=== PATIENT | male | born 1965 | race Caucasian/White ===

== ENCOUNTER 2018-06-03 10:57 | Outpatient (CLI) | payer MEDICAID, SELFPAY ==
[2018-06-03 13:01] LABS: Anion Gap 10.8 mmol/L (3-11); BUN 16 mg/dL (7-18); CO2 27.2 mmol/L (21.0-32.0); CREATININE 1.05 mg/dL (0.70-1.30); Calcium 9.2 mg/dL (8.5-10.1); Chloride 105 mmol/L (98-107); Glucose 125 mg/dL (70-100); Potassium 3.9 mmol/L (3.5-5.1); Sodium 143 mmol/L (136-145)
[2018-06-03 14:27] LABS: Hemoglobin A1C 6.3 % (4.5-6.2)
== END 2018-06-03 11:17 ==
PROVIDERS: PCP Emergency Medicine; Visit Provider Emergency Medicine
DX: E11.9 Type 2 diabetes mellitus without complications (principal)
CPT/HCPCS: 36415; 80048; 83036

== ENCOUNTER 2018-12-02 10:52 | Outpatient (CLI) | payer MEDICAID, SELFPAY ==
[2018-12-02 13:03] LABS: BUN 17 mg/dL (7-18); CREATININE 0.97 mg/dL (0.70-1.30); Calcium 9.3 mg/dL (8.5-10.1); Chloride 107 mmol/L (98-107); Glucose 109 mg/dL (70-100); Potassium 4.4 mmol/L (3.5-5.1); Sodium 143 mmol/L (136-145)
[2018-12-02 13:21] LABS: Hemoglobin A1C 5.8 % (4.5-6.2)
== END 2018-12-02 11:12 ==
PROVIDERS: PCP Emergency Medicine; Visit Provider Emergency Medicine
DX: I10 Essential (primary) hypertension (principal); E11.9 Type 2 diabetes mellitus without complications
CPT/HCPCS: 36415; 80048; 83036

== ENCOUNTER 2019-04-12 07:00 | Outpatient (CLI) | payer MEDICAID, SELFPAY ==
[2019-04-13 13:19] LABS: PSA, Screening 0.6 ng/ml (0-3.5)
== END 2019-04-12 07:20 ==
PROVIDERS: PCP Emergency Medicine; Visit Provider Emergency Medicine
DX: Z12.5 Encounter for screening for malignant neoplasm of prostate (principal)
CPT/HCPCS: 36415; 84153

== ENCOUNTER 2021-02-02 03:28 | Inpatient (IN) | payer MEDICAID, SELFPAY ==
[2021-02-02] VITALS (102 sets, daily range): BP systolic 117–201; BP diastolic 83–134; PULSE 88–147; RESP 19–37; TEMP 36.1–36.9; O2SAT 88–98
--- NOTE | 2021-02-02 03:15 | RT.EKG_ITS ---
APPROVED REPORT Exam: Resting ECG Reason for Exam: chest pain Patient Location: E HR:131 bpm ECG Measurements Heart Rate 131 AXIS NC 128 P 36 QRSd 84 QRS -28 QT 318 T 88 QTc 469 Conclusion Sinus tachycardia...rate> [address]-T changes
--- NOTE | 2021-02-02 03:29 | W.ED.GENAD ---
Discharge Plan Disposition Patient Disposition: [facility] INPATIENT Condition: Poor Discharge Details Clinical Impression: Acute pancreatitis Primary Care Provider: Peña Turner ED Provider: Vazquez Arndt Adkins Meds and New Rx's Prescriptions: No Action metformin 500 mg tablet 1,000 mg PO DAILY RF: 0 (DME) Blood-Glucose Meter [Blood Glucose Monitor] 1 EACH EACH 1 ea Miscellaneous BID Qty: 1 RF: 1 cholecalciferol (vitamin D3) 50,000 unit wafer 50,000 unit PO QWEEK RF: 0 ergocalciferol (vitamin D2) [Vitamin D2] 1,250 mcg (50,000 unit) capsule 1,250 mcg PO QWEEK Qty: 12 RF: 4 spironolactone 25 mg tablet 25 mg PO DAILY Qty: 90 RF: 3 (DME) Blood Glucose Test Strip 1 ea Miscellaneous DAILY Qty: 100 RF: 6 (DME) lancets 28 gauge misc 1 ea Miscellaneous DAILY Qty: 100 RF: 3 lisinopril 20 mg tablet 20 mg PO DAILY Qty: 90 RF: 3 amlodipine 5 mg tablet 5 mg PO DAILY Qty: 90 RF: 4 Medical Decision Making Patient presenting with upper abdominal pain/chest pain onset 1 to 2 hours ago. Associated with nausea and vomiting. Reporting that he could not breathe but suspect more related to pain and discomfort than true dyspnea. Appears uncomfortable but has a benign abdomen on exam. He is tachycardic and tachypneic. Line established and laboratory studies sent including troponin, lipase, lactic acid. EKG is sinus tachycardia with nonspecific ST changes possibly rate related. There is no STEMI. Fluids started. Morphine and Zofran ordered. CTA of the chest and CT of abdomen pelvis ordered. Patient laboratory studies in full white count of 18.5. Lactic acid elevated 3.6. Anion gap of 15.5. Liver functions a little high with AST 152 and ALT 198. Total bilirubin is 1.3. Lipase is still pending due to it being markedly elevated. CT scan confirms acute pancreatitis with associated ileus. No evidence of cholecystitis or biliary ductal dilatation. No obvious pulmonary embolus. Motion artifact degrades CTA to some degree. Patient remained with normal saturations. Radiology feels there is evidence of interstitial infiltrate of uncertain etiology, cardiogenic versus noncardiogenic versus infectious. For now we will not treat with antibiotics as I do not think this is pneumonia related. Doubt cardiogenic etiology. Troponin is negative. Continue treatment with fluids and pain control, keep n.p.o. Discussed with hospitalist for admission. Lipid panel and alcohol level added to labs Lab Data Lab results reviewed: Yes I reviewed the patient's lab results. ECG Data Attestation: I personally reviewed and interpreted this ECG (s) as follows: Prior ECG tracings: not available for review Interpretation: see EKG HPI General Mode of arrival: ambulatory. Date/Time Provider Initiated Documentation: 02/02/21 03:29. Limitations to Documentation: no limitations. Information obtained by: patient and RN notes reviewed. HPI Narrative: Patient arrives to the ED with complaint of upper abdominal pain and chest pain. Patient reports symptoms started 1 to 2 hours ago. Complaining of not being able to bring. He has had nausea and vomiting. Denies back pain. Sitting on stretcher moaning and groaning not providing much in terms of detailed history. States he was fine earlier this evening. Denies having pain like this previously. Denies any alcoholic beverages in the last few months. Denies any abdominal surgery. Related Data Home Medications Medication Instructions Recorded Confirmed metformin 500 mg tablet 1,000 mg PO DAILY tab 04/12/19 02/02/21 cholecalciferol (vitamin D3) 1,250 50,000 unit PO QWEEK 08/24/19 02/02/21 mcg (50,000 unit) oral wafer ergocalciferol (vitamin D2) 1,250 1,250 mcg PO QWEEK #12 cap 08/24/19 02/02/21 mcg (50,000 unit) capsule spironolactone 25 mg tablet 25 mg PO DAILY #90 tab-cap 07/05/20 02/02/21 blood sugar diagnostic #100 strip 07/29/20 lancets 28 gauge #100 ea 07/29/20 lisinopril 20 mg tablet 20 mg PO DAILY #90 tab-cap 10/16/20 02/02/21 amlodipine 5 mg tablet 5 mg PO DAILY #90 tab-cap 01/27/21 02/02/21 Previous Rx's Medication Instructions Recorded ergocalciferol (vitamin D2) 1,250 1,250 mcg PO QWEEK #12 cap 08/24/19 mcg (50,000 unit) capsule spironolactone 25 mg tablet 25 mg PO DAILY #90 tab-cap 07/05/20 blood sugar diagnostic #100 strip 07/29/20 lancets 28 gauge #100 ea 07/29/20 lisinopril 20 mg tablet 20 mg PO DAILY #90 tab-cap 10/16/20 amlodipine 5 mg tablet 5 mg PO DAILY #90 tab-cap 01/27/21 Allergies Allergy/AdvReac Type Severity Reaction Status Date / Time No Known Allergies Allergy Verified 03/01/20 11:11 Review of Systems Narrative: Unable to obtain this patient to uncomfortable and not readily answering questions [facility] Medical History Diabetes Diverticulosis 07/31 COLONOSCOPY: PANDIVERTICULOSIS 01/14/16-[facility] [place] Essential hypertension (05/07/15) possible aldosteronism. See [facility] [place] notes avoid diuretics Kidney stones 1999 Rotator cuff injury Left shoulder diffuse rotator cuff tear, repaired at [facility] [place] 2009, some residual motion loss. 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 Surgical History H/O colonoscopy Previous back surgery Rotator Cuff Repair 2010 LEFT Family History (Updated 04/12/19 @ 13:52 by Al Linda) Mother Hyperlipidemia Diabetes Father Diabetes Hypertension Brother No problems noted. Brother No problems noted. Son Depression Daughter No problems noted. Social History Smoking/Tobacco Use Status: Never Smoking risk assessment performed?: Yes Alcohol Intake: current Alcohol Intake frequency: holidays/special occasions only Substance use type: does not use Caregiver/Support person: No Household members: family Housing: house Communication Needs: None Pets and animals: Yes Pets and animals: cat(s) and dog(s) Sexually active: Yes Current gender identity: male What is your relationship status?: How often do you talk on the phone with friends or family?: three or more times per week How often do you get together with friends or relatives?: once per week How often do you attend shinto or holiness services?: decline to answer Do you belong to any clubs or organized social groups?: no Panel score (0-1 are the most socially isolated patients): 1 What type of physical activity do you participate in: walking Duration: 15-30 minutes/day Cyndi/Sikhism: Adventism Special cyndi needs: No Seatbelt use: always Drive 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 HEENT: NC/AT. Normal facial exam. Eyes: Normal conjunctiva and sclera. Neck: Supple. Trachea midline. Lungs: Normal respiratory effort. Lungs are clear. Cor: RRR without murmur/gallop. Good radial pulses. GI: Soft. NT/ND. No guarding or rebound. Neuro: A+O x 3. Normal speech, mentation. Cranial nerves II - XII grossly intact. No gross motor or sensory deficit. Ext: No C/C/E. Skin: Warm and dry without rash.
--- NOTE | 2021-02-02 03:45 | DI.CT_ITS ---
Exam(s) CT CHEST PE ABD PELVIS W EXAM: CT CHEST PE ABD PELVIS W CLINICAL HISTORY: SOB; CP; upper abdominal pain. TECHNIQUE: Imaging Protocol: Axial CT angiography was performed with multi-slice acquisition and m ulti-planar and/or 3D reconstructions. CONTRAST MATERIAL: Intravenous: Omnipaque 350 Contrast volume:100 ml Oral: None COMPARISON: CT ABD PELVIS WITH CONTRAST from 08/19/2010 CR CHEST 2 VIEWS PA,LAT from 08/23/2014 FINDINGS: CHEST: Study is limited by less than optimal enhancement of the pulmonary arterial tree. This is rel ated to motion and bolus timing being suboptimal. PULMONARY ARTERIES: There are no obvious intra-arterial filling defects to suggest the presence of ac chilkat central pulmonary emboli. More peripheral pulmonary emboli would be difficult to see on this par ticular study. LUNGS: There is no evidence of pulmonary infarction. There are no pleural effusions.Mild increased p ulmonary markings are probably exaggerated by motion artifact here. MEDIASTINUM: There is no hilar nor mediastinal adenopathy. Visualized thyroid unremarkable. CARDIAC: Heart size is normal. There is no pericardial effusion. There is no significant shift of t he interventricular septum.Caliber of the thoracic aorta is within normal limits. OSSEOUS: No significant osseous lesions.. ABDOMEN: There is no ascites. LIVER: Liver is hypodense implying steatosis. There are no discrete focal hepatic lesions. GALLBLADDER/BILIARY: Very subtle hypodensity in the gallbladder suggest the presence of gallstones. Gallbladder wall is not edematous. Gallbladder appears slightly distended. This CBD diameter is not dilated. Subtle suggestion of a possible calculus in the lower CBD (series 12/image 34) PANCREAS: There is peripancreatic streaking consistent with pancreatitis. Pancreatic duct is not dil ated. There is small amount of free fluid around-subjacent to the pancreas. No formed pseudocyst. This fluid is also seen surrounding the superior mesenteric vein and portal vein confluence but with no thrombosis of these veins evident. SPLEEN: Spleen is not enlarged. There are no intrasplenic lesions. Splenic and portal veins are cox nt. ADRENALS: Right adrenal gland unremarkable. There is slight thickening of the genu of the left adren al gland which may suggest a small benign adenoma. KIDNEYS:No significant focal findings in the kidneys. No calculi nor hydronephrosis. No solid renal masses. ABDOMINAL AORTA: Abdominal aorta is not enlarged. LYMPH NODES: There is no retroperitoneal or para-aortic adenopathy. ABDOMINAL WALL/GI: No evidence of significant anterior abdominal wall hernia. There is a fat contain ing left inguinal hernia. PELVIS: LYMPH NODES: There is no intrapelvic nor inguinal adenopathy. GI: No evidence of appendicitis.No evidence of sigmoid diverticulitis. URINARY BLADDER: No calculi nor masses evident REPRODUCTIVE: Prostate size minimally prominent. No obturator adenopathy. OSSEOUS: No significant osseous lesions. Ankylosis of the sacroiliac joints is noted. IMPRESSION: 1. No evidence of obvious acute pulmonary emboli nor pulmonary infarction, realized limitations of th is study for detecting pulmonary emboli, as described above. There are no pleural effusions. 2. There appears to be evidence of cholelithiasis and possible calculus in the lower most CBD.There i s acute pancreatitis with peripancreatic streaking and fluid. The pancreatic duct is not dilated. T here is inflammatory streaking around the portal vein confluence and superior mesenteric vein. Howev er, there is no evidence of thrombosis of these veins at this time. 3. Hepatic steatosis noted. No discrete ominous focal hepatic lesions evident. 4. Sacroiliac joints exhibit ankylosis. This CT study was 1st read by [facility]. Final report called by myself to the ICU hospitalist Dr. Reynolds Wednesday02/02/2021 at 6:50 p.m. RADIATION DOSE DELIVERED: 1,759.88mGy.cm Total DLP DATA REPOSITORY: All CT scans at this facility are submitted to the National Radiology Data Registry (NRDR) Dose Index Registry (DIR) with the [employer] (ACR). RADIATION OPTIMIZATION: All CT scans at this facility use at least one of these dose optimization te chniques: automated exposure control; mA and/or kV adjustment per patient size (includes targeted exa ms where dose is matched to clinical indication); or iterative reconstruction.
[2021-02-02] MEDS: Lactated Ringers 1,000 ML 1000 ML IV (03:54)
[2021-02-02] MEDS: Ondansetron 4 MG/2 ML VIAL IVP ×2 (03:57→10:05)
[2021-02-02] MEDS: MORPHine 10 MG/ML VIAL 5 MG IVP ×2 (03:59→05:01)
[2021-02-02 04:01] LABS: Abs Immature Grans 0.05 10^3/uL (0.0-0.06); Absolute Eosinophil Count 0.26 10^3/uL (0.0-0.7); Absolute Lymphocyte Count 4.09 10^3/uL (1.2-3.4); Absolute Monocyte Count 1.15 10^3/uL (0.1-0.8); Basophils % 0.5; Eosinophils % 1.4; HCT 48.4 % (40.0-50.0); HGB 16.4 g/dL (13.5-17.5); Immature Grans % 0.3; Lymphocytes % 22.1; MCH 30.8 pg (27.0-33.0); MCHC 33.9 % (32.0-36.0); MPV 10.9 fL (8.0-11.0); Monocytes % 6.2; Neutrophils % 69.5; Nucleated RBC 0 %; Platelet Count 218 10^3/uL (130-400); RBC 5.32 10^6/uL (4.36-5.78); RDW 12.8 % (11.8-14.1)
[2021-02-02 04:05] LABS: Absolute Basophil Count 0.09 10^3/uL (0.0-0.2); Absolute Neutrophil Count 12.86 10^3/uL (1.2-6.7); Lactate 3.6 mmol/L (0.6-1.4)
[2021-02-02 04:19] LABS: Magnesium 1.9 mg/dL (1.8-2.4)
[2021-02-02 04:22] LABS: ALT 198 U/L (16-63); AST 152 U/L (15-37); Albumin 4.7 g/dL (3.4-5.0); Alkaline Phosphatase 110 U/L (46-116); Anion Gap 15.5 mmol/L (3-11); BUN 17 mg/dL (7-18); Bilirubin, Total 1.3 mg/dL (0.2-1.0); CO2 21.5 mmol/L (21.0-32.0); CREATININE 1.4 mg/dL (0.70-1.30); Calcium 9.4 mg/dL (8.5-10.1); Chloride 106 mmol/L (98-107); Estimated GFR 52.42 (mL/min/1.73m2); Glucose 172 mg/dL (74-106); Potassium 4.1 mmol/L (3.5-5.1); Sodium 143 mmol/L (136-145)
[2021-02-02 04:25] LABS: Troponin I < 0.05 ng/mL (<0.06)
[2021-02-02] MEDS: Normal Saline - Diluent 50 ML VIAL IV (04:39)
[2021-02-02] MEDS: Omnipaque 350 MG/ML 100 ML BTL IJ (04:39)
--- NOTE | 2021-02-02 04:56 | DI.VRAD_ITS ---
PROCEDURE INFORMATION: Exam: CTA Chest With Contrast Exam date and time: 02/02/2021 3:52 AM Age: 55 years old Clinical indication: Abdominal tenderness and vomiting; Epigastric; Shortness of breath; Other: Not specified; Patient HX: SOB; Cp; Upper abdominal pain TECHNIQUE: Imaging protocol: Computed tomographic angiography of the chest with contrast. 3D rendering (Not supervised by radiologist): MIP and/or 3D reconstructed images were created by the technologist. COMPARISON: No relevant prior studies available. FINDINGS: Pulmonary arteries: Motion artifact limits this study and the results are insufficient for definitive exclusion of peripheral pulmonary emboli beyond the first and second order pulmonary arterial branches. No central or saddle emboli noted. No evidence of central lobar occlusive emboli. Segmental emboli cannot be ruled out. The pulmonary arteries are not enlarged. Aorta: The aorta demonstrates mild atherosclerotic calcification. Great vessels off aortic arch: Mild atherosclerosis of the great vessels present. Lungs: There are diffuse interstitial infiltrates present. This may represent cardiogenic versus noncardiogenic edema. An acute inflammatory process and/or infectious process/pneumonia are not excluded. Pleural spaces: There is no evidence of pneumothorax. There are no pleural effusions present. Heart: The right ventricular to left ventricular ratio is approximately 0.8. There is mild left ventricular hypertrophy present. There is mild atherosclerotic calcification of the coronary arteries. Lymph nodes: There is no evidence of lymphadenopathy. Bones/joints: The skeletal structures and soft tissues show no evidence of fracture or other acute processes. Soft tissues: The soft tissues of the extrathoracic region are unremarkable. Other findings: Please see CT of the abdomen and pelvis. IMPRESSION: 1. There are diffuse interstitial infiltrates present. This may represent cardiogenic versus noncardiogenic edema. An acute inflammatory process and/or infectious process/pneumonia are not excluded. 2. Motion artifact limits this study and the results are insufficient for definitive exclusion of peripheral pulmonary emboli beyond the first and second order pulmonary arterial branches. No central or saddle emboli noted. No evidence of central lobar occlusive emboli. Segmental emboli cannot be ruled out. PROCEDURE INFORMATION: Exam: CT Abdomen And Pelvis With Contrast Exam date and time: 02/02/2021 3:52 AM Age: 55 years old Clinical indication: Abdominal tenderness and vomiting; Epigastric; Shortness of breath; Other: Not specified; Patient HX: SOB; Cp; Upper abdominal pain TECHNIQUE: Imaging protocol: Computed tomography of the abdomen and pelvis with contrast. COMPARISON: No relevant prior studies available. FINDINGS: Mediastinal space: A small hiatal hernia is present. Liver: There is a diffuse decrease in hepatic parenchymal density, consistent with moderate to severe fatty infiltration. There are no focal liver lesions present. Gallbladder and bile ducts: There is no evidence of intrahepatic or extrahepatic biliary ductal dilation. The gallbladder is normal. There is no cholelitiasis, wall thickening or pericholecystic fluid to suggest cholecystitis. Pancreas: There is diffuse peripancreatic inflammatory stranding and fluid, consistent with acute pancreatitis. Spleen: The spleen is normal. Adrenal glands: Normal. No mass. Kidneys and ureters: 6.6 mm low-attenuation lesion seen within the upper pole left kidney and 5 mm low-attenuation lesion seen within the upper pole the right kidney consistent with renal cysts. No follow-up indicated. Kidneys are otherwise normal. Stomach and bowel: There are fluid-filled loops of small bowel with air-fluid levels. No significant bowel wall thickening or inflammatory changes. No evidence of obstruction. Consider early enteritis. Consider ileus secondary to pancreatitis. There is no evidence of intestinal obstruction. Appendix: A normal appendix is identified. There is no evidence of distention or periappendiceal inflammation to suggest appendicitis. Intraperitoneal space: The inferior venacava appears normal.The portal, mesenteric and splenic veins are patent.There is no free intraperitoneal air. Vasculature: The aorta demonstrates mild atherosclerotic calcification. The peripheral vasculature demonstrates diffuse mild atherosclerotic calcification. Lymph nodes: There is no evidence of lymphadenopathy. Urinary bladder: The bladder is normal. Reproductive: The prostate gland demonstrates calcification and mild nonspecific enlargement. The seminal vesicles are normal. Bones/joints: The skeletal structures and soft tissues show no evidence of fracture or other acute processes. The thoracolumbar spine demonstrates moderate degenerative changes at multiple levels.The lumbar spine demonstrates moderate degenerative changes. Spondylolytic changes seen at L5-S1 bilaterally. Soft tissues: Left inguinal hernia present containing only fat. IMPRESSION: 1. There is diffuse peripancreatic inflammatory stranding and fluid, consistent with acute pancreatitis. 2. There are fluid-filled loops of small bowel with air-fluid levels. No significant bowel wall thickening or inflammatory changes. No evidence of obstruction. Consider early enteritis. Consider ileus secondary to pancreatitis. Dictated and Authenticated by: Ruslan Anderson MD. Ordering:STAN Shukla MD
[2021-02-02 05:04] LABS: Bilirubin Negative (Negative); Blood Negative (Negative); Clarity Clear (Clear); Glucose Negative (Negative); Ketones Negative (Negative); Leukocyte Esterase Negative (Negative); Nitrite Negative (Negative); Urobilinogen 0.2 EU/dL (Up TO 0.2)
[2021-02-02 05:23] LABS: Calculated LDL 125 mg/dL (<100); Cholesterol 176 mg/dL (<200); HDL Cholesterol 31 mg/dL (40-60); Triglyceride 101 mg/dL (<150)
[2021-02-02 05:29] LABS: ETHANOL BLOOD < 3.0 mg/dL (<3)
[2021-02-02 05:30] LABS: Lipase > 15000 U/L (73-393)
[2021-02-02] MEDS: HYDROmorphone 2 MG/ML VIAL 1 MG IVP (05:51)
[2021-02-02 06:03] LABS: Source Nasal/Nares
[2021-02-02] MEDS: Lactated Ringers 1,000 ML 200 ML IV (06:33)
[2021-02-02 06:52] LABS: COVID-19 PCR Negative (Negative)
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
[2021-02-02] MEDS: fentaNYL 100 MCG/2 ML VIAL 50 MCG IVP ×2 (07:46→09:35)
[2021-02-02] MEDS: LORazepam 2 MG/ML VIAL 1 MG IVP ×3 (07:47→23:20)
[2021-02-02] MEDS: Normal Saline Flush 10 ML SYR IVP ×4 (07:47→20:16)
[2021-02-02 08:20] LABS: Prothrombin Time 10.1 sec (9.3-11.0)
[2021-02-02 08:28] LABS: Troponin I < 0.05 ng/mL (<0.06)
[2021-02-02] MEDS: Heparin 5,000 UNITS/ML VIAL 5000 UNITS SC ×3 (08:28→23:55)
[2021-02-02] MEDS: ACETAMINOPHEN 1,000 MG/100 ML BTL 400 MG IVPB ×4 (08:32→23:56)
[2021-02-02] MEDS: Metoprolol 5 MG/5 ML VIAL IVP ×5 (08:33→21:23)
[2021-02-02] MEDS: Normal Saline 1,000 ML 250 ML IV ×2 (08:33→13:24)
[2021-02-02] MEDS: Spironolactone 25 MG TAB PO (08:41)
[2021-02-02] MEDS: amLODIPine 5 MG TAB PO (08:41)
[2021-02-02] MEDS: Insulin Aspart 300 UNITS/3 ML PEN SC ×4 (09:26→23:37)
[2021-02-02] MEDS: HYDROmorphone 2 MG/ML VIAL IVP ×6 (11:02→20:07)
--- NOTE | 2021-02-02 12:19 | W.PM.PROGNOT ---
Date of Service Date of service: 02/02/21 Time of Service: 12:19 Assessment and Plan Assessment and plan (1) Acute pancreatitis: Status: Acute Assessment and plan: Acute pancreatitis of undetermined etiology. Differential diagnosis include surreptitious alcohol use (patient states he has not had any alcohol in 3 to 4 months however his nurse reports that he told her he has had no alcohol in 2 months.), Medication induced (lisinopril, amlodipine), no evidence for cholecystitis or choledocholithiasis per CT scan. Continue with aggressive IV fluids and parenteral narcotic analgesics and antiemetics. Obtain MRCP and abdominal ultrasound in the morning. Lipid profile showed no evidence for hypertriglyceridemia. Qualifiers: Pancreatitis type: other Acute pancreatitis complication: no infection or necrosis Qualified Code(s): K85.80 - Other acute pancreatitis without necrosis or infection (2) Aldosteronism: Status: Chronic Assessment and plan: Continue spironolactone as tolerated. (3) Secondary hypertension: Status: Chronic Assessment and plan: Continue outpatient medications only as tolerated. If needed IV metoprolol may be used for blood pressure control while the patient is n.p.o. IV Lopressor has been added to his regimen. Continue his spironolactone however with the absence of bowel sounds I suspect he has an ileus and may not absorb his oral medications. If we achieve adequate pain control with narcotics he is still hypertensive may need to consider IV vasodilator such as hydralazine or treated with nicardipine. For now we will continue with IV Lopressor and adjust the dose as tolerated. (4) Diabetes: Status: Chronic Assessment and plan: Monitor frequent blood sugars with fingersticks and cover with short acting insulin Qualifiers: Diabetes mellitus type: type 2 Diabetes mellitus long term care social worker insulin use: without long term care social worker use Diabetes mellitus complication status: without complication Qualified Code(s): E11.9 - Type 2 diabetes mellitus without complications Subjective Subjective Interval history since last seen: Patient is a 55-year-old male with a history of essential hypertension, diabetes mellitus type 2, possible hyperaldosteronism who presented with an acute epigastric abdominal pain yesterday and was found to have acute pancreatitis with a lipase greater than 15,000 with normal triglycerides of 101. Patient has been a casual consumer of alcohol drinking 1 or 2 drinks once a week with friends but states that he is not had any alcohol for the last 3 to 4 months. He has had no prior history of pancreatitis. He does have a history of nephrolithiasis. He states his pain is worse than when he had kidney stones. Serial troponins were obtained yesterday and were found to be negative. LFTs were elevated with an AST of 152, ALT 198 and alkaline phosphatase that was normal at 100 tablet total bilirubin of 1.3. Contrast enhanced CT of the chest and abdomen showed no pulmonary emboli but suggested diffuse interstitial infiltrates on the chest CT however because of motion artifact evaluation of the pulmonary vasculature was limited to the first and second order branches but no central saddle emboli were seen. CT of the abdomen showed diffuse peripancreatic inflammatory stranding and fluid consistent with acute pancreatitis along with fluid-filled loops of small bowel with air-fluid levels suggestive of an ileus. Gallbladder and bile ducts showed no extrahepatic biliary ductal dilatation and gallbladder appear to be normal with no gallstones or wall thickening or pericholecystic fluid. Patient was admitted to ICU as a medical/surgical floor overflow. He has been made n.p.o. given aggressive IV fluids narcotic analgesics and antiemetics. Exam Narrative Exam Narrative: Middle-aged white male lying in bed in acute pain. Alert and oriented. Lungs clear to auscultation Heart regular rate and rhythm Abdomen nondistended soft with absent bowel sounds with tenderness with palpation in the epigastrium and right upper quadrant. Positive voluntary guarding but no rebound tenderness. Extremities without peripheral cyanosis or edema Objective Last Vital Signs Temp 36.5 C 02/02/21 07:38 Pulse 122 H 02/02/21 11:32 Resp 28 H 02/02/21 06:15 BP 184/128 H 02/02/21 11:32 Pulse Ox 91 L 02/02/21 08:36 Laboratory Results - last 24 hr 02/02/21 02/02/21 02/02/21 03:50 03:50 03:50 WBC RBC Hgb Hct MCV MCH MCHC RDW Plt Count MPV Immature Gran % Neutrophils % Lymphocytes % Monocytes % Eosinophils % Basophils % Nucleated RBC % Absolute Neutrophils Absolute Lymphocytes Absolute Monocytes Absolute Eosinophils Absolute Basophils PT INR VBG Lactate 3.6 H* Sodium 143 Potassium 4.1 Chloride 106 Carbon Dioxide 21.5 Anion Gap 15.5 H BUN 17 Creatinine 1.4 H Estimated GFR/1.73 m2 52.42 Glucose 172 H Calcium 9.4 Magnesium 1.9 Total Bilirubin 1.3 H AST 152 H ALT 198 H Alkaline Phosphatase 110 Troponin I < 0.05 Total Protein 8.0 Albumin 4.7 Triglycerides 101 Total Cholesterol 176 LDL Cholesterol, Calc 125 H HDL Cholesterol 31 L Lipase > 65072 H Urine Color Urine Clarity Urine pH Ur Specific [place] Urine Protein Urine Ketones Urine Blood Urine Nitrite Urine Bilirubin Urine Urobilinogen Ur Leukocyte Esterase Urine Glucose Ethyl Alcohol < 3.0 COVID-19 Source SARS-CoV-2 (PCR) 02/02/21 02/02/21 02/02/21 03:50 05:00 05:50 WBC 18.50 H RBC 5.32 Hgb 16.4 Hct 48.4 MCV 91.0 MCH 30.8 MCHC 33.9 RDW 12.8 Plt Count 218 MPV 10.9 Immature Gran % 0.3 Neutrophils % 69.5 Lymphocytes % 22.1 Monocytes % 6.2 Eosinophils % 1.4 Basophils % 0.5 Nucleated RBC % 0 Absolute Neutrophils 12.86 H Absolute Lymphocytes 4.09 H Absolute Monocytes 1.15 H Absolute Eosinophils 0.26 Absolute Basophils 0.09 PT INR VBG Lactate Sodium Potassium Chloride Carbon Dioxide Anion Gap BUN Creatinine Estimated GFR/1.73 m2 Glucose Calcium Magnesium Total Bilirubin AST ALT Alkaline Phosphatase Troponin I Total Protein Albumin Triglycerides Total Cholesterol LDL Cholesterol, Calc HDL Cholesterol Lipase Urine Color Yellow Urine Clarity Clear Urine pH 6.0 Ur Specific [place] 1.010 Urine Protein Negative Urine Ketones Negative Urine Blood Negative Urine Nitrite Negative Urine Bilirubin Negative Urine Urobilinogen 0.2 Ur Leukocyte Esterase Negative Urine Glucose Negative Ethyl Alcohol COVID-19 Source Nasal/Nares SARS-CoV-2 (PCR) Negative 02/02/21 02/02/21 08:00 08:00 WBC RBC Hgb Hct MCV MCH MCHC RDW Plt Count MPV Immature Gran % Neutrophils % Lymphocytes % Monocytes % Eosinophils % Basophils % Nucleated RBC % Absolute Neutrophils Absolute Lymphocytes Absolute Monocytes Absolute Eosinophils Absolute Basophils PT 10.1 INR 1.0 VBG Lactate Sodium Potassium Chloride Carbon Dioxide Anion Gap BUN Creatinine Estimated GFR/1.73 m2 Glucose Calcium Magnesium Total Bilirubin AST ALT Alkaline Phosphatase Troponin I < 0.05 Total Protein Albumin Triglycerides Total Cholesterol LDL Cholesterol, Calc HDL Cholesterol Lipase Urine Color Urine Clarity Urine pH Ur Specific [place] Urine Protein Urine Ketones Urine Blood Urine Nitrite Urine Bilirubin Urine Urobilinogen Ur Leukocyte Esterase Urine Glucose Ethyl Alcohol COVID-19 Source SARS-CoV-2 (PCR)
--- NOTE | 2021-02-02 13:36 | PHA.REVIEW ---
Pharmacy Admission Review - Admission Clinical Review (Last Reviewed 02/02/21 @ 07:04 by Sal Castaneda) Acute pancreatitis (Acute) No Known Allergies Allergy (Verified 03/01/20 11:11) Resuscitation Status Full Code Height 5 ft 10 in Weight 100.3 kg - Renal Dosing Renal Dosing: BUN 17 mg/dL (7-18) 02/02/21 03:50 Creatinine 1.4 mg/dL (0.70-1.30) H 02/02/21 03:50 Medications needing adjustments: Reviewed (Crcl over 60 mL/min using adjusted body weight, current meds okay) - Anticoagulation Anticoagulation: Hgb 16.4 g/dL (13.5-17.5) 02/02/21 03:50 Hct 48.4 % (40.0-50.0) 02/02/21 03:50 Plt Count 218 10^3/uL (130-400) 02/02/21 03:50 INR 1.0 (0.9-1.1) 02/02/21 08:00 Creatinine 1.4 mg/dL (0.70-1.30) H 02/02/21 03:50 DVT Prophylaxis: Reviewed Medications: Heparin - Opiate Usage Evaluate Pain Scale/Pains Meds: Reviewed Scheduled Bowel Reg ordered if on Opiates?: No (has prn meds ordered) - Relevant Labs Sodium 143 mmol/L (136-145) 02/02/21 03:50 Potassium 4.1 mmol/L (3.5-5.1) 02/02/21 03:50 Chloride 106 mmol/L (98-107) 02/02/21 03:50 Magnesium 1.9 mg/dL (1.8-2.4) 02/02/21 03:50 Electrolytes, C-Reactive P, ESR: Reviewed - DM Control DM Control: Glucose 172 mg/dL (74-106) H 02/02/21 03:50 Finger Stick Blood Glucose 245 Finger Stick Blood Glucose 245 Finger Stick Blood Glucose 245 Finger Stick Blood Glucose 211 Finger Stick Blood Glucose 211 Finger Stick Blood Glucose 211 Insulin Dosing: Reviewed (Has sliding scale aspart ordered.) - Heart Failure/ND Heart Failure/ND: Troponin I < 0.05 ng/mL (<0.06) 02/02/21 08:00 EF%, TAMIKA's, B-Blockers, Diuretics: Reviewed - BP Control BP Control: Blood Pressure [Left Arm] 153/103 Blood Pressure 168/113 Blood Pressure 195/121 Blood Pressure 193/125 Blood Pressure 184/128 Blood Pressure 184/128 Blood Pressure 180/126 Blood Pressure 188/122 If elevated: Reviewed (BP has been elevated most of admission. Amlodipine and metoprolol are ordered. Lisinopril currenly being held.) - Qtc Review If Elevated: N/A (QTc 469 on admission) - IV to PO Switch IV Medications: Reviewed (Pt. is currently NPO) - Home Meds Home Med List reviewed: Reviewed Relevent Home Meds Not ordered & why?: ergocalciferol (Qweek), metformin (has sliding scale aspart ordered) - Current meds Current Medication Order Review: Intervened (Asked provider about sliding scale aspart being Q6H vs. ACHS as the pt is currently NPO, also asked provider about possibly holding lisinopril and amlodipine as both meds can cause pancreatitits (very low risk per Uptodate) and the etiology was undetermined.) - Comments Comments/Follow Ups: Watch BP, BG, SCr, labs and for med changes (possible need of additional BM meds, possible adjustment if insulin).
[2021-02-02] MEDS: diphenhydrAMINE 50 MG/ML VIAL 25 MG IVP (15:42)
[2021-02-02] MEDS: Normal Saline 100 ML 200 ML (17:16)
[2021-02-02] MEDS: Normal Saline 1,000 ML 150 ML IV (17:51)
[2021-02-02] MEDS: LORazepam 1 MG TAB PO/SL ×2 (21:41→23:21)
--- NOTE | 2021-02-02 23:53 | PGE_ITS ---
Date of Service Date of service: 02/02/21 Time of Service: 23:53 Subjective Subjective Interval history since last seen: Called for hypertension and restlessness. Case reviewed, admitted for pancreatitis, CT reported initially as no stones, some question as to reliability of alcohol history. Firstly, I received call from radiology earlier this evening stating there were in fact gall stones, and possibly one in CBD. General supportive measures for pancreatitis continued. Severe HTN reported, with diastolic pressures >120, with pulses low 100s, sinus tach. Getting IV Lopressor scheduled, usual TAMIKA and CCB had been on hold. Patient initially given additional 5 mg Lopressor IV along with 2.5 Vasotec IV. BP initially down to approx 110/diastolic. BP then increased 126/poonam and CIWA scoring 20, given 3 Ativan IV per protocol and ordered Nicardipine qtt. On exam 151/126, 105, patient is restless, mumbling, trying to get out of bed A/P Patient appearance is c/w alcohol withdrawal and I believe it best we treat as such. Will convert to Phenobarbital (w/o loading as benzo on board), 130 q15' for RASS 0-1, max 20 mg/kg IBW. Will D/C CIWA and Benzo's. Will continue scheduled Lopressor, Enalapril and Nicardipine. Objective Last Vital Signs Temp 36.7 C 02/02/21 19:44 Pulse 107 H 02/02/21 21:54 Resp 20 02/02/21 19:44 BP 169/111 H 02/02/21 21:54 Pulse Ox 97 02/02/21 21:10 Laboratory Results - last 24 hr 02/02/21 02/02/21 02/02/21 03:50 03:50 03:50 WBC RBC Hgb Hct MCV MCH MCHC RDW Plt Count MPV Immature Gran % Neutrophils % Lymphocytes % Monocytes % Eosinophils % Basophils % Nucleated RBC % Absolute Neutrophils Absolute Lymphocytes Absolute Monocytes Absolute Eosinophils Absolute Basophils PT INR VBG Lactate 3.6 H* Sodium 143 Potassium 4.1 Chloride 106 Carbon Dioxide 21.5 Anion Gap 15.5 H BUN 17 Creatinine 1.4 H Estimated GFR/1.73 m2 52.42 Glucose 172 H Calcium 9.4 Magnesium 1.9 Total Bilirubin 1.3 H AST 152 H ALT 198 H Alkaline Phosphatase 110 Troponin I < 0.05 Total Protein 8.0 Albumin 4.7 Triglycerides 101 Total Cholesterol 176 LDL Cholesterol, Calc 125 H HDL Cholesterol 31 L Lipase > 28822 H Urine Color Urine Clarity Urine pH Ur Specific [place] Urine Protein Urine Ketones Urine Blood Urine Nitrite Urine Bilirubin Urine Urobilinogen Ur Leukocyte Esterase Urine Glucose Ethyl Alcohol < 3.0 COVID-19 Source SARS-CoV-2 (PCR) 02/02/21 02/02/21 02/02/21 03:50 05:00 05:50 WBC 18.50 H RBC 5.32 Hgb 16.4 Hct 48.4 MCV 91.0 MCH 30.8 MCHC 33.9 RDW 12.8 Plt Count 218 MPV 10.9 Immature Gran % 0.3 Neutrophils % 69.5 Lymphocytes % 22.1 Monocytes % 6.2 Eosinophils % 1.4 Basophils % 0.5 Nucleated RBC % 0 Absolute Neutrophils 12.86 H Absolute Lymphocytes 4.09 H Absolute Monocytes 1.15 H Absolute Eosinophils 0.26 Absolute Basophils 0.09 PT INR VBG Lactate Sodium Potassium Chloride Carbon Dioxide Anion Gap BUN Creatinine Estimated GFR/1.73 m2 Glucose Calcium Magnesium Total Bilirubin AST ALT Alkaline Phosphatase Troponin I Total Protein Albumin Triglycerides Total Cholesterol LDL Cholesterol, Calc HDL Cholesterol Lipase Urine Color Yellow Urine Clarity Clear Urine pH 6.0 Ur Specific [place] 1.010 Urine Protein Negative Urine Ketones Negative Urine Blood Negative Urine Nitrite Negative Urine Bilirubin Negative Urine Urobilinogen 0.2 Ur Leukocyte Esterase Negative Urine Glucose Negative Ethyl Alcohol COVID-19 Source Nasal/Nares SARS-CoV-2 (PCR) Negative 02/02/21 02/02/21 08:00 08:00 WBC RBC Hgb Hct MCV MCH MCHC RDW Plt Count MPV Immature Gran % Neutrophils % Lymphocytes % Monocytes % Eosinophils % Basophils % Nucleated RBC % Absolute Neutrophils Absolute Lymphocytes Absolute Monocytes Absolute Eosinophils Absolute Basophils PT 10.1 INR 1.0 VBG Lactate Sodium Potassium Chloride Carbon Dioxide Anion Gap BUN Creatinine Estimated GFR/1.73 m2 Glucose Calcium Magnesium Total Bilirubin AST ALT Alkaline Phosphatase Troponin I < 0.05 Total Protein Albumin Triglycerides Total Cholesterol LDL Cholesterol, Calc HDL Cholesterol Lipase Urine Color Urine Clarity Urine pH Ur Specific [place] Urine Protein Urine Ketones Urine Blood Urine Nitrite Urine Bilirubin Urine Urobilinogen Ur Leukocyte Esterase Urine Glucose Ethyl Alcohol COVID-19 Source SARS-CoV-2 (PCR)
[2021-02-03] VITALS (217 sets, daily range): BP systolic 111–190; BP diastolic 70–128; PULSE 100–147; RESP 15–46; TEMP 36.3–38; O2SAT 88–96
[2021-02-03] MEDS: niCARdipine 25 MG in Normal Saline 240 ML 50 MG IV ×4 (00:22→17:27)
[2021-02-03] MEDS: PHENobarbital 130 MG in Normal Saline 50 ML 100 MG IVPB ×3 (00:40→03:00)
[2021-02-03] MEDS: Normal Saline 1,000 ML 150 ML IV ×2 (01:19→07:57)
[2021-02-03] MEDS: Metoprolol 5 MG/5 ML VIAL IVP ×6 (02:21→21:09)
[2021-02-03] MEDS: HYDROmorphone 2 MG/ML VIAL IVP ×6 (03:27→16:07)
[2021-02-03] MEDS: ACETAMINOPHEN 1,000 MG/100 ML BTL 400 MG IVPB ×4 (05:42→23:10)
[2021-02-03] MEDS: Insulin Aspart 300 UNITS/3 ML PEN SC ×4 (05:47→23:10)
[2021-02-03 06:20] LABS: Lactate 1.9 mmol/L (0.6-1.4)
[2021-02-03 06:24] LABS: Abs Immature Grans 0.18 10^3/uL (0.0-0.06); Absolute Lymphocyte Count 0.91 10^3/uL (1.2-3.4); Basophils % 0.2; HCT 49.3 % (40.0-50.0); HGB 16.5 g/dL (13.5-17.5); Immature Grans % 0.6; Lymphocytes % 3.2; MCHC 33.5 % (32.0-36.0); MCV 92.7 fL (80-95); MPV 10.8 fL (8.0-11.0); Monocytes % 6.3; Neutrophils % 89.7; Nucleated RBC 0 %; Platelet Count 142 10^3/uL (130-400); RBC 5.32 10^6/uL (4.36-5.78); RDW 13.3 % (11.8-14.1); RDW-SD 45.1 fL
--- NOTE | 2021-02-03 06:30 | DI.RAD_ITS ---
Exam(s) XR PORTABLE CHEST AP EXAM: XR PORTABLE CHEST AP CLINICAL HISTORY: INCREASED WHITE BLOOD COUNT. TECHNIQUE: 2D digital imaging was performed. COMPARISON: No exams were available for comparison FINDINGS: Heart size is normal. The mediastinum is not widened. Less than optimal inspiratory effort. Right lung is clear. Increased markings noted in the left lung base. No obvious pleural effusions. No pulmonary edema IMPRESSION: Mild increased markings in the left lung base. Possible early developing infiltrate. Recommend nonp ortable PA and lateral views when clinically possible. DATA REPOSITORY: RADIATION DOSE DELIVERED: All CT scans at this facility use at least one of these dose optimization techniques: automated exposure control; mA and/or kV adjustment per patient size (includes targeted e xams where dose is matched to clinical indication); or iterative reconstruction.
[2021-02-03 06:33] LABS: Absolute Basophil Count 0.06 10^3/uL (0.0-0.2); Absolute Monocyte Count 1.79 10^3/uL (0.1-0.8); Absolute Neutrophil Count 25.47 10^3/uL (1.2-6.7); WBC 28.39 10^3/uL (4.4-10.8)
[2021-02-03 06:45] LABS: ALT 173 U/L (16-63); AST 74 U/L (15-37); Albumin 3.5 g/dL (3.4-5.0); Alkaline Phosphatase 75 U/L (46-116); Anion Gap 8.7 mmol/L (3-11); BUN 17 mg/dL (7-18); Bilirubin, Total 1.2 mg/dL (0.2-1.0); CO2 22.3 mmol/L (21.0-32.0); CREATININE 1.1 mg/dL (0.70-1.30); Calcium 7.7 mg/dL (8.5-10.1); Chloride 109 mmol/L (98-107); Glucose 251 mg/dL (74-106); Potassium 4.6 mmol/L (3.5-5.1); Sodium 140 mmol/L (136-145); Total Protein 6.6 g/dL (6.4-8.2)
[2021-02-03 06:54] LABS: Lipase 6331 U/L (73-393)
[2021-02-03 07:22] LABS: Diff Comment Agrees w/ Instrument; RBC Morphology Normal
--- NOTE | 2021-02-03 07:28 | DI.VRAD_ITS ---
PROCEDURE INFORMATION: Exam: XR Chest Exam date and time: 02/03/2021 6:44 AM Age: 55 years old Clinical indication: Other: Increased white blood count TECHNIQUE: Imaging protocol: XR of the chest. Views: 1 view. COMPARISON: CT CHEST PE ABD PELVIS W 02/02/2021 4:28 AM FINDINGS: Lungs: Unremarkable. No consolidation. Pleural spaces: Unremarkable. No pleural effusion. No pneumothorax. Heart/Mediastinum: Unremarkable. No cardiomegaly. Bones/joints: Unremarkable. IMPRESSION: No acute findings. Dictated and Authenticated by: Mike Ray MD. Ordering:FINN Huang MD
--- NOTE | 2021-02-03 07:44 | W.PULMCC ---
General Date of Service Date of service: 02/03/21 Time of Service: 08:30 Reason for Admission to ICU: Acute pancreatitis Assessment and Plan Assessment and plan (1) Acute pancreatitis: Status: Acute Qualifiers: Pancreatitis type: other Acute pancreatitis complication: no infection or necrosis Qualified Code(s): K85.80 - Other acute pancreatitis without necrosis or infection (2) Essential hypertension: Status: Chronic (3) Transaminitis: Status: Acute (4) Hyperchloremia: Status: Acute (5) Hypocalcemia: Status: Acute (6) Lactic acidosis: Status: Acute Assessment and plan: This is a 55-year-old male admitted to the ICU for acute pancreatitis that is slowly improving. The etiology of the pancreatitis in him would include alcohol induced versus choledocholithiasis with stone passage. Recommendations Pulmonary: Atelectasis Seen on CXR 02/03/21 - Recommend up to chair as tolerated - I.S. and VibraPEP recommended - O2 as need for sat >90% - adequate pain control Cardiac: Hypertension May be do to elevated aldosterone but likely worsened currently by pain. - agree with nicardipine gtt for BP control - would avoid TAMIKA/ARB in the setting of acute pancreatitis given risk for REJI - agree with holding spironolactone for now - would restart amlodipine (exceedingly rare cause of pancreatitis and there are more likely etiologies in this patient) - would consider starting PO diltiazem 60mg bid to facilitate drip weaning Tachycardia - likely related to pain Renal: REJI, resolved Likely in the setting of dehydration from pancreatitis. Improved after fluid resuscitation I&O: Intake & Output 01/31/21 02/01/21 02/02/21 02/03/21 23:59 23:59 23:59 23:59 Intake Total 4350.5 / 4350.5 1539.333 / 1539.333 Output Total 1650 / 1650 800 / 800 Balance 2700.5 / 2700.5 739.333 / 739.333 Weight 100.3 kg Daily Fluid Goal:: Even Patient is currently 4.5L positive GI Nutrition: Has been NPO but recommend clear liquid diet with quick escalation as tolerated as there are typically better outcomes in pancreatitis with PO intake if no nausea/vomiting Acute pancreatitis - would promote PO intake - recommend stopping IVF resuscitation (4.5 L positive) if patient tolerates any PO intake - patient undergoing MRSP to assess potential gall bladder cause. I suspect he had a stone based on the CT images that has now subsequently passed since he is improving lab-martinez quickly Date of Last Bowel Movement: 02/02/21 Infectious Disease: Fever, leukocytosis Unsure if reactive vs infectious. No real necrosis seen on CT. - recommend procalcitonin - continue meropenem for now Hematologic: Leukocytosis As above, reactive vs infectious Neurologic: Pain Patient very sedated to RASS -2 on my assessment. I doubt EtOH withdrawl based on history of abstinence for at least a couple months. I suspect the combination of benzo's and phenobarb and opiods are resulting in over sedation. I recommend altering his pain control regimen to both appropriately treat his pain while minimizing sedating him. - recommend starting a ketamine infusion for pain control - would not given any further benzo's or phenobarb - would walk back the Dilaudid to 1mg q3hrs for breakthrough pain while on ketamine - agree with bowel regimen Endocrine: Hyperaldosteronism - treat HTN as above Lines: PIV Pimentel Prophylaxis: On heparin for DVT ppx Code Status: Resuscitation Status Full Code Subjective Critical and life-threatening events over the past 24 hours: This is a 55-year-old gentleman admitted to the ICU for acute pancreatitis. The etiology of his pancreatitis is unknown at this time, there is thoughts of alcohol induced however the patient states he has been sober for months, per there is also findings on his abdominal CT to indicate the presence of choledocholithiasis as well as stones seen in the gallbladder. He does have elevations in his transaminases as well as bilirubin however his alk phos is normal. Patient states that his abdominal pain is better but is still sore. He is quite sleepy. He states that he is hungry and thirsty. Exam Const General: ill appearing Nutritional Appearance: well nourished [facility] Head: normocephalic Ears: external ears normal General nose exam: nasal mucous membranes and turbinates normal Face and sinus: normal facial exam Mouth: oropharynx normal and oral mucosa abnormal (dry) Teeth and gingiva: dentition normal Eyes General: appearance normal, both eyes and all related structures Pupils: PERRL Neck Neck: normal visual inspection Chest Chest: normal inspection of the chest Resp Effort & Inspection: abnormal respiratory effort and tachypneic Auscultation: clear to auscultation bilaterally, diminished lung sounds (bases) bilaterally, no rales, no rhonchi and no wheezes Cardio Rate: regular rate Rhythm: regular rhythm Heart Sounds: S1 normal, S2 normal and no murmurs Pulses: radial pulses present bilaterally GI Inspection: normal to inspection Palpation: soft Skin General skin exam: no rashes or lesions noted Neuro General: patient alert, not awake and other (RASS -2) Extrem General: no clubbing, cyanosis or edema Psych Mental Status: mental status grossly normal Affect: normal affect Attitude: cooperative Most Recent VS/Results Last Vital Signs Temp 37.7 C H 02/03/21 06:35 Pulse 112 H 02/03/21 06:35 Resp 23 02/03/21 04:31 BP 145/94 H 02/03/21 06:35 Pulse Ox 93 02/03/21 04:31 Laboratory Results - last 24 hr 02/02/21 02/02/21 02/03/21 08:00 08:00 06:10 WBC RBC Hgb Hct MCV MCH MCHC RDW Plt Count MPV Immature Gran % Neutrophils % Lymphocytes % Monocytes % Eosinophils % Basophils % Nucleated RBC % Absolute Neutrophils Absolute Lymphocytes Absolute Monocytes Absolute Eosinophils Absolute Basophils RBC Morphology PT 10.1 INR 1.0 VBG Lactate Sodium Potassium Chloride Carbon Dioxide Anion Gap BUN Creatinine Estimated GFR/1.73 m2 Glucose Calcium Total Bilirubin AST ALT Alkaline Phosphatase Troponin I < 0.05 Total Protein Albumin Lipase 6331 H 02/03/21 02/03/21 02/03/21 06:10 06:10 06:10 WBC 28.39 H* D RBC 5.32 Hgb 16.5 Hct 49.3 MCV 92.7 MCH 31.0 MCHC 33.5 RDW 13.3 Plt Count 142 MPV 10.8 Immature Gran % 0.6 Neutrophils % 89.7 Lymphocytes % 3.2 Monocytes % 6.3 Eosinophils % 0.0 Basophils % 0.2 Nucleated RBC % 0 Absolute Neutrophils 25.47 H Absolute Lymphocytes 0.91 L Absolute Monocytes 1.79 H Absolute Eosinophils 0.00 Absolute Basophils 0.06 RBC Morphology Normal PT INR VBG Lactate 1.9 H Sodium 140 Potassium 4.6 Chloride 109 H Carbon Dioxide 22.3 Anion Gap 8.7 BUN 17 Creatinine 1.1 Estimated GFR/1.73 m2 >= 60.00 Glucose 251 H Calcium 7.7 L Total Bilirubin 1.2 H AST 74 H ALT 173 H Alkaline Phosphatase 75 Troponin I Total Protein 6.6 Albumin 3.5 Lipase Review of Systems All systems reviewed & are unremarkable except as noted in HPI and below and Unobtainable due to (Limited by somnolence) Constitutional Constitutional: Reports increased appetite Gastrointestinal Gastrointestinal: Reports abdominal pain
[2021-02-03] MEDS: Heparin 5,000 UNITS/ML VIAL 5000 UNITS SC ×3 (07:58→23:09)
--- NOTE | 2021-02-03 08:00 | DI.US_ITS ---
Exam(s) US ABDOMEN EXAM: US ABDOMEN CLINICAL HISTORY: pancreatitis TECHNIQUE: Ultrasound of complete upper abdomen performed using standard protocol. COMPARISON: CT CT CHEST PE ABD PELVIS W from 02/02/[address] CHEST PE ABD PELVIS W from 02/02/2021 FINDINGS: According to the technologist this study was apparently limited because the patient's condition and t he fact that the patient was not able to be cooperative. There is some ascites in the upper quadrants noted, as evident on today's MRI. LIVER: Liver is hyperechoic indicating steatosis, as seen on the other imaging studies. GALLBLADDER/BILIARY: There is combination of sludge and gallstones in the gallbladder lumen. Gallbla dder wall does not appear be obviously edematous and there is no pericholecystic fluid. The common hepatic duct is difficult to locate on this study. PANCREAS: Poorly seen due to overlying bowel gas and patient not being able to follow breathing instr uctions for more optimal visualization of the pancreas. SPLEEN: The spleen is not enlarged and there are no intrasplenic lesions evident. KIDNEYS:Kidneys exhibit normal size with no evidence of solid mass, calculus, nor hydronephrosis. No cortical cysts evident. ABDOMINAL AORTA: There is no evidence of abdominal aortic aneurysm. IVC: Normal diameter where visualized. IMPRESSION: 1. Somewhat less than optimal study as the patient was not able to be cooperative. However, this st udy does confirm the presence of gallstones within the gallbladder lumen. Gallbladder wall does not appear grossly edematous. 2. CBD was not able to be evaluated but was noted to be slightly prominent and containing calculi in the lower CBD as seen on today's MRI study. See that separate report. 3. There is ascites in noted in both upper quadrants and this has increased from yesterday's CT scan . This site is is related to the pancreatitis. The pancreatitis itself is probably related to galls tone pancreatitis. DATA REPOSITORY:
[2021-02-03] MEDS: MEROPENEM 1 GM in Normal Saline 100 ML IVPB ×3 (08:40→23:19)
--- NOTE | 2021-02-03 08:51 | PDOC.CMIN ---
- If Service Date Differs Date of service: 02/03/21 Time of Service: 08:51 Care Management Initial Assess REASON FOR HOSPITALIZATION:: Acute Pancreatitis PAST MEDICAL HISTORY/PAST SURGICAL HISTORY:: Medical History . Diabetes. Diverticulosis. 07/31 [place]ONOSCOPY[place] [place] Essential hypertension (05/07/[place]). possible aldosteronism. [place] [facility] [place] [place]. avoid diuretics. Kidney stones. 1999. Rotator cuff injury. Left shoulder diffuse rotator cuff tear, [place] [facility] [place], some residual motion loss. 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 Tubular adenoma of colon. 08/28 COLONOSCOPY: TWO TUBULAR ADENOMAS & TWO HYPERPLASTIC POLYPS. Surgical History . H/O colonoscopy. Previous back surgery. Rotator Cuff Repair. 2009 LEFT PREVIOUS FUNCTIONAL STATUS/SOCIAL/FAMILY SUPPORTS:: Pancho is and lives alone in [place]. CURRENT FUNCTIONAL STATUS:: Pancho was lying in bed when CM met with him and was feeling very drowsy. He is being treated per [facility] protocol making communication with CM at this time difficult. CM will continue to follow. ADVANCE DIRECTIVES:: None on file Has patient been provided with info about the portal/API?: Yes Did the patient sign up for the portal?: No CODE STATUS:: Full Code INSURANCE COVERAGE / FINANCIAL ISSUES:: Medicaid CURRENT HOME/COMMUNITY SERVICES/EQUIPMENT:: None PRIMARY CARE PHYSICIAN:: [facility] POTENTIAL DISCHARGE NEEDS:: Disposition is unclear at this time, CM will continue to follow. PATIENT/FAMILY EDUCATION NEEDS:: Review discharge instructions and plans for outpatient follow up, ask me three. ANTICIPATED BARRIERS TO DISCHARGE:: CM will continue to follow. TRANSPORTATION:: RCT vs. Private Vehicle with a friend. PLAN:: Disposition is unclear at this time. CM will continue to follow.
--- NOTE | 2021-02-03 08:53 | W.PM.PROGNOT ---
Date of Service Date of service: 02/03/21 Time of Service: 08:53 Assessment and Plan Assessment and plan (1) Acute pancreatitis: Status: Acute Assessment and plan: acute onset of pancreatitis. Initially was enigma as to etiology as the patient initially indicated he had no alcohol for 3 to [address] report was negative for biliary disease. Now re-read of CT suggests gallstones and CBD stone. With his rising WBC there is concern for cholangitis. He will have an urgent MRCP and abdominal US this morining and if CBD stone is confirmed, I will contact [facility] gastroenterology for urgent ERCP. In the interim he had blood and urine cultures obtained and CXR was done. No alternative source for the WBC is accounted for. I have ordered Meropenem to be started. He will be kept NPO for possible ERCP later today. Patient's care was discussed w/ gear generator set up operator upon receiving morning report; also seen and discussed w/ Dr. Kerr, pulm/[facility] Qualifiers: Pancreatitis type: other Acute pancreatitis complication: no infection or necrosis Qualified Code(s): K85.80 - Other acute pancreatitis without necrosis or infection (2) Aldosteronism: Status: Chronic Assessment and plan: this is a alleged diagnosis obtained on his admission hx. Patient's BP became quite high last night probably d/t alcohol withdrawal and pain from his pancreatitis. He was not responding to iv metoprolol but has improved w/ combination of vasotec and nicardipine begun last night by Dr. Reynolds. At present will continue current treatment until he is able to take oral meds at which time he willl be put back on spironolactone and amlodipine and taken off the iv meds. (3) Secondary hypertension: Status: Chronic Assessment and plan: treatment as above (4) Diabetes: Status: Chronic Assessment and plan: monitor glucose q6hr and coverage w/ Novolog Qualifiers: Diabetes mellitus type: type 2 Diabetes mellitus intermodal customer service insulin use: without intermodal customer service use Diabetes mellitus complication status: without complication Qualified Code(s): E11.9 - Type 2 diabetes mellitus without complications (5) Alcohol withdrawal: Status: Acute Assessment and plan: patient intially denied recent alcohol use however, his response w/ confusion and hypertensive response and tremors last night suggests otherwise. Patient was initiated on phenobarbital. Will continue treatment and put him on MVS parenterally along w/ prn phenobarbital up to total dose of 25 mg/kg. He has had total of 390 mg (calculated maximum is 1825 mg based on IBW 73 kg). Qualifiers: Complication of substance-induced condition: with perceptual disturbance Qualified Code(s): F10.232 - Alcohol dependence with withdrawal with perceptual disturbance Subjective Subjective Interval history since last seen: Patient initially denied any abdominal pain but on his abdominal exam he had diffuse abdominal tenderness w/ more focalized tenderness in the LUQ and epigastrium. No nausea. He is lethargic but able to be aroused and answers questions appropriately. Last night his CIWA scores were high at 21 necessitating initiation of lorazepam and eventually was put on phenobarbital. His BP became very high despite being started on iv metoprolol w/ SBP 190 to 200 and DBP 120's. and he was started on nicardipine and enaleprilate. BP now down in the 156/88. CT scan from yesterday had been read as negative for cholelithiasis or cholecystitis but now has been overread by our local radiologist as showing subtle findings for gall stones and possible stone in the CBD w/out CBD dilatation. Gall bladder is distended. Patient is to go for US and MRCP this morning. Exam Narrative Exam Narrative: Middle age white male who is lethargic lying in bed w/ his eyes shut but when spoken to and gently shaken he will arouse and will look at me and answer questions. he is oriented to person and place but I did not question him on time/date, etc. He initiall denies pain or nausea but during abdominal exam has obvious pain Face appears mark/plethoric Neck: no JVD Lungs: upper aldridge are clear but diminished at the bases; no rhonchi or rales Abdomen: hypoactive to nearly non-active bowel sounds; I could not hear any discernible bowel sounds but his nurse detected faint sounds; No rebound tenderness but he has diffuse tenderness w/ palpation in all 4 quads w/ pain referred to the LUQ and epigastrium; no guarding; no palpable masses nor any bruits and no organomegaly Extremities warm w/ normal pedal pulses, no cyanosis nor any edema Neuro/psych: lethargic but arouseable (RASS -1 to -2); no focal motor deficits; moves all 4's to tactile stimulation and he follows simple commands Objective Last Vital Signs Temp 36.3 C L 02/03/21 07:45 Pulse 121 H 02/03/21 07:31 Resp 30 H 02/03/21 07:40 BP 156/88 H 02/03/21 07:31 Pulse Ox 95 02/03/21 07:40 Laboratory Results - last 24 hr 02/03/21 02/03/21 02/03/21 06:10 06:10 06:10 WBC RBC Hgb Hct MCV MCH MCHC RDW Plt Count MPV Immature Gran % Neutrophils % Lymphocytes % Monocytes % Eosinophils % Basophils % Nucleated RBC % Absolute Neutrophils Absolute Lymphocytes Absolute Monocytes Absolute Eosinophils Absolute Basophils RBC Morphology VBG Lactate 1.9 H Sodium 140 Potassium 4.6 Chloride 109 H Carbon Dioxide 22.3 Anion Gap 8.7 BUN 17 Creatinine 1.1 Estimated GFR/1.73 m2 >= 60.00 Glucose 251 H Calcium 7.7 L Total Bilirubin 1.2 H AST 74 H ALT 173 H Alkaline Phosphatase 75 Total Protein 6.6 Albumin 3.5 Lipase 6331 H 02/03/21 06:10 WBC 28.39 H* D RBC 5.32 Hgb 16.5 Hct 49.3 MCV 92.7 MCH 31.0 MCHC 33.5 RDW 13.3 Plt Count 142 MPV 10.8 Immature Gran % 0.6 Neutrophils % 89.7 Lymphocytes % 3.2 Monocytes % 6.3 Eosinophils % 0.0 Basophils % 0.2 Nucleated RBC % 0 Absolute Neutrophils 25.47 H Absolute Lymphocytes 0.91 L Absolute Monocytes 1.79 H Absolute Eosinophils 0.00 Absolute Basophils 0.06 RBC Morphology Normal VBG Lactate Sodium Potassium Chloride Carbon Dioxide Anion Gap BUN Creatinine Estimated GFR/1.73 m2 Glucose Calcium Total Bilirubin AST ALT Alkaline Phosphatase Total Protein Albumin Lipase Reviewed Pertinent PMH: No Objective Narrative Objective Narrative: morning labs reviewed and amended admission CT report reviewed. Exam(s) a CT:CT chest PE abd & pelvis w Exam(s) CT CHEST PE ABD PELVIS W EXAM: CT CHEST PE ABD PELVIS W CLINICAL HISTORY: SOB; CP; upper abdominal pain. TECHNIQUE: Imaging Protocol: Axial CT angiography was performed with multi-slice acquisition and multi-planar and/or 3D reconstructions. CONTRAST MATERIAL: Intravenous: Omnipaque 350 Contrast volume:100 ml Oral: None COMPARISON: CT ABD PELVIS WITH CONTRAST from 08/19/2010 CR CHEST 2 VIEWS PA,LAT from 08/23/2014 FINDINGS: CHEST: Study is limited by less than optimal enhancement of the pulmonary arterial tree. This is related to motion and bolus timing being suboptimal. PULMONARY ARTERIES: There are no obvious intra-arterial filling defects to suggest the presence of acute central pulmonary emboli. More peripheral pulmonary emboli would be difficult to see on this particular study. LUNGS: There is no evidence of pulmonary infarction. There are no pleural effusions.Mild increased pulmonary markings are probably exaggerated by motion artifact here. MEDIASTINUM: There is no hilar nor mediastinal adenopathy. Visualized thyroid unremarkable. CARDIAC: Heart size is normal. There is no pericardial effusion. There is no significant shift of the interventricular septum.Caliber of the thoracic aorta is within normal limits. OSSEOUS: No significant osseous lesions.. ABDOMEN: There is no ascites. LIVER: Liver is hypodense implying steatosis. There are no discrete focal hepatic lesions. GALLBLADDER/BILIARY: Very subtle hypodensity in the gallbladder suggest the presence of gallstones. Gallbladder wall is not edematous. Gallbladder appears slightly distended. This CBD diameter is not dilated. Subtle suggestion of a possible calculus in the lower CBD (series 12/image 34) PANCREAS: There is peripancreatic streaking consistent with pancreatitis. Pancreatic duct is not dilated. There is small amount of free fluid around-subjacent to the pancreas. No formed pseudocyst. This fluid is also seen surrounding the superior mesenteric vein and portal vein confluence but with no thrombosis of these veins evident. SPLEEN: Spleen is not enlarged. There are no intrasplenic lesions. Splenic and portal veins are patent. ADRENALS: Right adrenal gland unremarkable. There is slight thickening of the genu of the left adrenal gland which may suggest a small benign adenoma. KIDNEYS:No significant focal findings in the kidneys. No calculi nor hydronephrosis. No solid renal masses. ABDOMINAL AORTA: Abdominal aorta is not enlarged. LYMPH NODES: There is no retroperitoneal or para-aortic adenopathy. ABDOMINAL WALL/GI: No evidence of significant anterior abdominal wall hernia. There is a fat containing left inguinal hernia. PELVIS: LYMPH NODES: There is no intrapelvic nor inguinal adenopathy. GI: No evidence of appendicitis.No evidence of sigmoid diverticulitis. URINARY BLADDER: No calculi nor masses evident REPRODUCTIVE: Prostate size minimally prominent. No obturator adenopathy. OSSEOUS: No significant osseous lesions. Ankylosis of the sacroiliac joints is noted. IMPRESSION: 1. No evidence of obvious acute pulmonary emboli nor pulmonary infarction, realized limitations of this study for detecting pulmonary emboli, as described above. There are no pleural effusions. 2. There appears to be evidence of cholelithiasis and possible calculus in the lower most CBD.There is acute pancreatitis with peripancreatic streaking and fluid. The pancreatic duct is not dilated. There is inflammatory streaking around the portal vein confluence and superior mesenteric vein. However, there is no evidence of thrombosis of these veins at this time. 3. Hepatic steatosis noted. No discrete ominous focal hepatic lesions evident. 4. Sacroiliac joints exhibit ankylosis. This CT study was 1st read by [facility]. Final report called by myself to the ICU hospitalist Dr. Reynolds Wednesday02/02/2021 at 6:50 p.m. RADIATION DOSE DELIVERED: 1,759.88mGy.cm Total DLP DATA REPOSITORY: All CT scans at this facility are submitted to the National Radiology Data Registry (NRDR) Dose Index Registry (DIR) with the [employer] (A[employer]). RADIATION OPTIMIZATION: All CT scans at this facility use at least one of these dose optimization techniques: automated exposure control; mA and/or kV adjustment per patient size (includes targeted exams where dose is matched to clinical indication); or iterative reconstruction. [id number]: Total DLP = 0.00 mGy-cm Ordered By: Vazquez Arndt M.D. CC: Dictated By: Carlos Girard M.D. 02/02/211852 <Electronically signed by Carlos Girard M.D. in [place]> 02/02/211852
--- NOTE | 2021-02-03 10:10 | DI.MRI_ITS ---
Exam(s) MR ABDOMEN WO EXAM: MR ABDOMEN WO CLINICAL HISTORY: acute pancreatitis TECHNIQUE: Multiplanar multisequence MRI was performed without IV contrast. MRCP also performed COMPARISON: CT CT CHEST PE ABD PELVIS W from 02/02/2021 FINDINGS: VISUALIZED LUNG BASES: No pleural effusions evident. There is ascites now evident in both upper quadrants,, significantly more so than on yesterday's CT s can. LIVER: Decreased signal on out of phase imaging consistent with prominent steatosis. No discrete int rahepatic mass. BILIARY: There are multiple gallstones noted within the gallbladder lumen. Gallbladder is mildly dis tended.The CBD diameter is mildly increased, measuring up to 10 millimeters. It exhibits diameter of 6 millimeters at the level the pancreatic head. There appear to be multiple tiny calculi within the lower CBD. PANCREAS: Abundant peripancreatic fluid consistent with pancreatitis, as evident on recent CT scan. Pancreatic duct is not dilated. SPLEEN: Spleen is not enlarged and there are no intrasplenic lesions. ADRENALS: There are no significant adrenal masses. KIDNEYS: No solid renal masses. No hydronephrosis.Small 6 millimeter cyst in the right kidney noted. Similar size small cyst is seen in the posterior cortex of the left kidney. ABDOMINAL AORTA: Not enlarged and there is no significant para-aortic adenopathy. ANTERIOR ABDOMINAL WALL/GI: There is no evidence of significant anterior abdominal wall hernia in the field of view of this study.Is no evidence of obvious bowel obstruction. OSSEOUS: There are no lytic osseous lesions in the field of view of this study. IMPRESSION: 1. Compared to yesterday's CT scan there is again noted evidence of prominent acute pancreatitis with abundant peripancreatic streaking and fluid and there is increasing ascites now evident. 2. There is indeed cholelithiasis. In addition to multiple intraluminal gallstones there are also sm all foci in the lower CBD consistent with choledocholithiasis. CBD diameter is mildly increased. I suspect that the pancreatitis etiology is related to the gallstones. 3. Patient is apparently also having ultrasound today. DATA REPOSITORY:
[2021-02-03] MEDS: Normal Saline Flush 10 ML SYR IVP (11:37)
[2021-02-03] MEDS: MAGNESIUM SULFATE 8.12 MEQ, MULTIVITAMIN 10 ML, THIAMINE 100 MG, FOLIC ACID 1 MG in Nor... 168.867 MG IV (12:03)
--- NOTE | 2021-02-03 14:24 | W.DIABETESNO ---
Date of service: 02/03/21 Time of Service: 14:24 Diabetes Note NOTE: Received Inpatient Diabetes Education request. Pt is 55 yo male with acute pancreatitis, NPO status with home DM meds of 1000 mg metformin BID. No recent A1C. Will offer Dm education once patient feels better. Time Spent in Nutritional Counseling and Treatment: 0
[2021-02-03] MEDS: Lactated Ringers 1,000 ML 100 ML IV (18:27)
[2021-02-03 20:27] LABS: Procalcitonin 5.2 ng/mL
--- NOTE | 2021-02-03 20:42 | PDOC.ANES ---
Date of service: 02/03/21 Time of Service: 20:30 Anesthesia Note Report Anesthesia Note: Consulted for ketamine drip analgesia by Dr. Srivastava for [place]ancho due to ongoing severe abdominal discomfort. After review of his medical record, he seems to be a good candidate for this therapy. Previously he was receiving Dilaudid, Ativan, fentanyl, and Tylenol with some effect but there was a growing concern for increased sedation. Alan is currently having 8/10 abdominal pain and this is worsened when trying to reposition in bed. I find him with a RASS of +1. At baseline he has been tachypneic into the 30's and tachycardic 120-130's. I discussed this medication with him and the RN at the bedside and he would like to try this therapy. I did explain that in rare cases it can cause nausea, increased heart rate/BP, increased oral secretions and can cause disturbing or scary thoughts. I gave him a total of 16mg IV bolus from the IV infusion bag and started the IV infusion at 0.2mg/kg/hr. Although his breathing and heart rate are still elevated, his pain is a 0-1/10 down from an 8-10/10. His eyes are closed but he responds to voice and appropriately with a RASS of -1. Ketamine protocol was reviewed with RN at bedside and copy left for reference with instruction to call me with any questions or concerns. It sounds like the plan is to transfer to a tertiary medical center tomorrow.
[2021-02-03] MEDS: LORazepam 2 MG/ML VIAL 0.5 MG IVP (21:34)
[2021-02-03] MEDS: Midazolam 2 MG/2 ML VIAL 1 MG IVP (22:32)
[2021-02-03] MEDS: HYDROmorphone 2 MG/ML VIAL 1 MG IVP (22:52)
[2021-02-04] VITALS (112 sets, daily range): BP systolic 94–171; BP diastolic 62–112; PULSE 85–144; RESP 14–47; TEMP 37.2–38.4; O2SAT 89–99
--- NOTE | 2021-02-04 | DI.RAD_ITS ---
Exam(s) XR PORTABLE CHEST AP EXAM: XR PORTABLE CHEST AP CLINICAL HISTORY: SOB TECHNIQUE: COMPARISON: CR,XR XR PORTABLE CHEST AP from 02/03/2021 FINDINGS: Portable AP chest at 0535 hours. There is a poor inspiration. There is crowding of the pulmonary ma rkings at the lung bases with areas of presumed atelectasis. Superimposed consolidation not entirely excluded on the basis of this examination. The upper lung zones appear clear. No gross pleural eff usion on this frontal film. Follow-up PA and lateral chest or chest CT suggested to evaluate for possible consolidation. IMPRESSION: RADIATION DOSE DELIVERED: Total DLP
[2021-02-04] MEDS: Pantoprazole 40 MG VIAL IVP ×2 (00:36→09:37)
--- NOTE | 2021-02-04 00:53 | NUR.NOTE ---
NuPt refusing to have escobar cath inserted bladder scan 40 ml residual. Pt having difficulty urinating no distension palpated. Will continue to monitor. rsing Note:
[2021-02-04] MEDS: Lidocaine 2% Jelly 11 ML SYR UR (01:11)
[2021-02-04] MEDS: Metoprolol 5 MG/5 ML VIAL IVP ×3 (01:11→09:36)
[2021-02-04] MEDS: Glycopyrrolate 0.2 MG/1 ML VIAL 0.1 MG IVP (01:39)
[2021-02-04] MEDS: niCARdipine 25 MG in Normal Saline 240 ML IV (01:39)
[2021-02-04] MEDS: fentaNYL 100 MCG/2 ML VIAL 75 MCG IVP ×3 (01:59→05:09)
[2021-02-04] MEDS: Normal Saline 100 ML 20 ML (02:49)
[2021-02-04] MEDS: Lactated Ringers 1,000 ML 100 ML IV (03:52)
[2021-02-04] MEDS: Midazolam 2 MG/2 ML VIAL 1 MG IVP (04:14)
[2021-02-04] MEDS: ACETAMINOPHEN 1,000 MG/100 ML BTL 400 MG IVPB (05:23)
--- NOTE | 2021-02-04 05:38 | PGE_ITS ---
Date of Service Date of service: 02/04/21 Time of Service: 05:38 Subjective Subjective Interval history since last seen: Called for continued discomfort. Here with gallstone pancreatitis, awaiting transfer to [facility] for ERCP. Started on ketamine overnight along with prn Dilaudid. Patient c/o lower abd discomfort with urinary urgency, states the catheter is uncomfortable; c/o ongoing back pain with epigastric discomfort; c/o dry mouth and requesting water; c/o SOB, w/o CP. Pimentel removed with resolution of lower abd discomfort after brief period of urinary urgency. Fentanyl 100 given. Ketamine uptitrated, now at 0.7; and patient sitting up. With these measures notes improvement in overall pain. Portable CXR obtained, poor inspiration but no acute findings except small left pleural effusion to my read. A/P: pancreatitis. Pain control improving with current series of measures. Will increase IVF 150/hr, increase Fenatanyl 100 q1 prn, continue up titration ketamine and maintain upright positioin in bed. Awaiting transfer to [facility] for ERCP. Objective Last Vital Signs Temp 37.2 C 02/04/21 04:03 Pulse 130 H 02/04/21 04:31 Resp 36 H 02/04/21 04:40 BP 153/79 H 02/04/21 04:31 Pulse Ox 93 02/04/21 04:40 Laboratory Results - last 24 hr 02/03/21 02/03/21 02/03/21 06:10 06:10 06:10 WBC RBC Hgb Hct MCV MCH MCHC RDW Plt Count MPV Immature Gran % Neutrophils % Lymphocytes % Monocytes % Eosinophils % Basophils % Nucleated RBC % Absolute Neutrophils Absolute Lymphocytes Absolute Monocytes Absolute Eosinophils Absolute Basophils RBC Morphology VBG Lactate 1.9 H Sodium 140 Potassium 4.6 Chloride 109 H Carbon Dioxide 22.3 Anion Gap 8.7 BUN 17 Creatinine 1.1 Estimated GFR/1.73 m2 >= 60.00 Glucose 251 H Calcium 7.7 L Total Bilirubin 1.2 H AST 74 H ALT 173 H Alkaline Phosphatase 75 Total Protein 6.6 Albumin 3.5 Lipase 6331 H Procalcitonin 02/03/21 02/03/21 06:10 19:52 WBC 28.39 H* D RBC 5.32 Hgb 16.5 Hct 49.3 MCV 92.7 MCH 31.0 MCHC 33.5 RDW 13.3 Plt Count 142 MPV 10.8 Immature Gran % 0.6 Neutrophils % 89.7 Lymphocytes % 3.2 Monocytes % 6.3 Eosinophils % 0.0 Basophils % 0.2 Nucleated RBC % 0 Absolute Neutrophils 25.47 H Absolute Lymphocytes 0.91 L Absolute Monocytes 1.79 H Absolute Eosinophils 0.00 Absolute Basophils 0.06 RBC Morphology Normal VBG Lactate Sodium Potassium Chloride Carbon Dioxide Anion Gap BUN Creatinine Estimated GFR/1.73 m2 Glucose Calcium Total Bilirubin AST ALT Alkaline Phosphatase Total Protein Albumin Lipase Procalcitonin 5.2
[2021-02-04] MEDS: Insulin Aspart 300 UNITS/3 ML PEN SC (05:45)
--- NOTE | 2021-02-04 07:01 | DI.VRAD_ITS ---
PROCEDURE INFORMATION: Exam: XR Chest Exam date and time: 02/04/2021 4:57 AM Age: 55 years old Clinical indication: Shortness of breath; Patient HX: SOB TECHNIQUE: Imaging protocol: XR of the chest. Views: 1 view. COMPARISON: CR XR PORTABLE CHEST AP 02/03/2021 6:57 AM FINDINGS: Lungs: Basilar dependent pulmonary atelectasis is present. Pleural spaces: Unremarkable. No pleural effusion. No pneumothorax. Heart/Mediastinum: Unremarkable. No cardiomegaly. Bones/joints: Unremarkable. IMPRESSION: No acute findings Dictated and Authenticated by: Mike Ray MD. Ordering:FINN Huang MD
--- NOTE | 2021-02-04 07:09 | PUCC_ITS ---
General Date of Service Date of service: 02/04/21 Time of Service: 07:40 Reason for Admission to ICU: Acute pancreatitis Assessment and Plan Assessment and plan (1) Acute pancreatitis: Status: Acute Qualifiers: Acute pancreatitis complication: no infection or necrosis Pancreatitis type: other Qualified Code(s): K85.80 - Other acute pancreatitis without necrosis or infection (2) Essential hypertension: Status: Chronic (3) Transaminitis: Status: Acute (4) Hyperchloremia: Status: Acute (5) Hypocalcemia: Status: Acute (6) Lactic acidosis: Status: Acute Assessment and plan: This is a 55-year-old male admitted to the ICU for acute pancreatitis that is slowly improving. The etiology of the pancreatitis in him would include alcohol induced versus choledocholithiasis with stone passage. Recommendations Pulmonary: Hypoxic Respiratory Failure - intubated 02/04/21 7.5 ETT, good views, easy intubation in the setting of worsening hypoxia and for airway protection given pending transfer - Volume assist mode - please continue on 6cc/kg as patients with acute p ancreatitis are at risk for developing secondary ARDS - repeat ABG once settled Atelectasis - Recommend up to chair as tolerated - I.S. and VibraPEP recommended - O2 as need for sat >90% - adequate pain control Cardiac: Hypertension May be do to elevated aldosterone but likely worsened currently by pain. - stop nicardipine gtt for BP control now that intubated - would avoid TAMIKA/ARB in the setting of acute pancreatitis given risk for REJI - agree with holding spironolactone for now - would consider restarting amlodipine (exceedingly rare cause of pancreatitis and there are more likely etiologies in this patient) if needed - would consider starting PO diltiazem 60mg bid if needed Tachycardia - likely related to pain and pancreatitis SIRS Renal: REJI, resolved Likely in the setting of dehydration from pancreatitis. Improved after fluid resuscitation - recommend Loren - recommend no IVF at this time I&O: Intake & Output 02/01/21 02/02/21 02/03/21 02/04/21 23:59 23:59 23:59 23:59 Intake Total 4350.5 / 4350.5 5272.775 / 5272.775 1425.710 / 1425.710 Output Total 1650 / 1650 1645 / 1645 650 / 650 Balance 2700.5 / 2700.5 3627.775 / 3627.775 775.710 / 775.710 Weight 100.3 kg Daily Fluid Goal:: Even GI Nutrition: Is NPO for possible transfer and ERCP Acute pancreatitis due to choledocholithiasis - OGT placement - recommend cutting IVF at least in half - he is now over 7L positive- he has been over-resuscitated (recommended for 4 L in first 48 hours) and further fluids will put him at risk for volume overload (in acute pancreatitis only approximately 20% of IVF remain intravascular meaning the remaining 80% are third spaced) Date of Last Bowel Movement: 02/03/21 Infectious Disease: Fever, leukocytosis Unsure if reactive vs infectious. No real necrosis seen on CT. - procalcitonin is 5.2 - continue meropenem for now Hematologic: Leukocytosis As above, reactive vs infectious Neurologic: Pain I doubt EtOH withdrawl based on history of abstinence for at least a couple months. - continue ketamine infusion for pain control - recommend discontinuing all benzo's including prn has the patient has received phenobarb - the mixing and matching is a high risk for over sedation - would walk back the Dilaudid to 1mg q3hrs for breakthrough pain while on ketamine - ok with leaving prn fentanyl q1h as needed - patient intubated now - propofol started. Will likely not need a very large dose as his pain is controlled with ketamine infusion - agree with bowel regimen Endocrine: Hyperaldosteronism - treat HTN as above Lines: PIV ETT Prophylaxis: Heparin Protonix I spent a total of 75 minutes with this patient including procedures such as intubation, assessment, chart review and documentation. I spent at least 60 minutes at the bedside with the patient this morning. Code Status: Resuscitation Status Full Code Subjective Critical and life-threatening events over the past 24 hours: Patient looking much more comfortable today from a pain perspective on the ketamine infusion. He has a RASS of -1 on my assessment and easily answers questions. He is planned to transfer to a tertiary care center for the purposes of the ERCP however has become progressively more hypoxic overnight likely due to volume overload in the setting of over resuscitation. Given his need for transfer I felt as though old required intubation for safety given his progressive hypoxia and increased need for supplemental oxygen. Exam Const General: ill appearing Nutritional Appearance: well nourished [facility] Head: normocephalic Ears: external ears normal General nose exam: nasal mucous membranes and turbinates normal Face and sinus: normal facial exam Mouth: oropharynx normal and oral mucosa abnormal (dry) Teeth and gingiva: dentition normal Eyes General: appearance normal, both eyes and all related structures Pupils: PERRL Neck Neck: normal visual inspection Chest Chest: normal inspection of the chest Resp Effort & Inspection: abnormal respiratory effort and tachypneic Auscultation: clear to auscultation bilaterally, diminished lung sounds (bases) bilaterally, no rales, no rhonchi and no wheezes Cardio Rate: regular rate Rhythm: regular rhythm Heart Sounds: S1 normal, S2 normal and no murmurs Pulses: radial pulses present bilaterally GI Inspection: normal to inspection Palpation: soft Skin General skin exam: no rashes or lesions noted Neuro General: patient alert, not awake and other (RASS -1) Extrem General: no clubbing, cyanosis or edema Psych Mental Status: mental status grossly normal Affect: normal affect Attitude: cooperative Most Recent VS/Results Last Vital Signs Temp 37.2 C 02/04/21 04:03 Pulse 122 H 02/04/21 06:37 Resp 39 H 02/04/21 06:37 BP 138/90 02/04/21 06:37 Pulse Ox 96 02/04/21 06:37 Laboratory Results - last 24 hr 02/03/21 02/03/21 06:10 19:52 WBC 28.39 H* D RBC 5.32 Hgb 16.5 Hct 49.3 MCV 92.7 MCH 31.0 MCHC 33.5 RDW 13.3 Plt Count 142 MPV 10.8 Immature Gran % 0.6 Neutrophils % 89.7 Lymphocytes % 3.2 Monocytes % 6.3 Eosinophils % 0.0 Basophils % 0.2 Nucleated RBC % 0 Absolute Neutrophils 25.47 H Absolute Lymphocytes 0.91 L Absolute Monocytes 1.79 H Absolute Eosinophils 0.00 Absolute Basophils 0.06 RBC Morphology Normal Procalcitonin 5.2 Review of Systems All systems reviewed & are unremarkable except as noted in HPI and below and Unobtainable due to (Limited by somnolence) Constitutional Constitutional: Reports increased appetite Gastrointestinal Gastrointestinal: Reports abdominal pain
--- NOTE | 2021-02-04 07:13 | PDOC.ANES ---
Date of service: 02/04/21 Time of Service: 07:13 Anesthesia Note Report Anesthesia Note: Called by ICU for increasing anxiety and confusion. Found in ICU in bed complaining of being extremely thirsty. Asked repetitively about getting water. Unable to clearly answer where he is, and seemed unsure about the fact that he is in the hospital. Given his increase agitation and confusion (and his already having midz/fent) the ketamine gtt was cut in half (0.6 mg/kg/hr) to see if he will be less confused and agitated.
[2021-02-04 07:14] LABS: Lactate 1.9 mmol/L (0.6-1.4)
[2021-02-04 07:25] LABS: Abs Immature Grans 0.23 10^3/uL (0.0-0.06); Absolute Lymphocyte Count 1.09 10^3/uL (1.2-3.4); Absolute Monocyte Count 1.37 10^3/uL (0.1-0.8); Basophils % 0.3; HCT 43.1 % (40.0-50.0); HGB 14.4 g/dL (13.5-17.5); Lymphocytes % 4.6; MCH 31.1 pg (27.0-33.0); MCHC 33.4 % (32.0-36.0); MCV 93.1 fL (80-95); Monocytes % 5.8; Neutrophils % 88.3; Nucleated RBC 0 %; RBC 4.63 10^6/uL (4.36-5.78); RDW 14.3 % (11.8-14.1); RDW-SD 48.9 fL; WBC 23.62 10^3/uL (4.4-10.8)
[2021-02-04 07:28] LABS: Absolute Basophil Count 0.07 10^3/uL (0.0-0.2); Absolute Neutrophil Count 20.86 10^3/uL (1.2-6.7)
[2021-02-04] MEDS: HYDROmorphone 2 MG/ML VIAL IVP (07:28)
[2021-02-04 07:45] LABS: BE -2 mmol/L (-2-3); HCO3 23 mmol/L (22-26); pCO2 37 mmHg (35-45); pO2 80 mmHg (80-105); sO2 96 % (95-98); tCO2 21 mmol/L (23-27)
[2021-02-04 07:48] LABS: FIO2L 4 L; Site Left Radial
[2021-02-04 07:54] LABS: ALT 95 U/L (16-63); AST 94 U/L (15-37); Albumin 2.9 g/dL (3.4-5.0); Alkaline Phosphatase 65 U/L (46-116); Anion Gap 10.2 mmol/L (3-11); BUN 27 mg/dL (7-18); Bilirubin, Total 1.4 mg/dL (0.2-1.0); CO2 21.8 mmol/L (21.0-32.0); CREATININE 1.1 mg/dL (0.70-1.30); Calcium 7.8 mg/dL (8.5-10.1); Chloride 110 mmol/L (98-107); Glucose 164 mg/dL (74-106); Potassium 4.1 mmol/L (3.5-5.1); Sodium 142 mmol/L (136-145); Total Protein 6.3 g/dL (6.4-8.2)
[2021-02-04 08:00] LABS: Diff Comment Agrees w/ Instrument; Platelet Count 112 10^3/uL (130-400); RBC Morphology Normal
[2021-02-04] MEDS: Lidocaine 2% Jelly 6 ML SYR (08:03)
[2021-02-04 08:04] LABS: C-Reactive Protein > 25.00 mg/dL (0.0-0.3); LDH 1047 U/L (85-227)
[2021-02-04 08:07] LABS: Lipase 4695 U/L (73-393)
[2021-02-04] MEDS: Ketamine 500 MG/5 ML VIAL (08:21)
--- NOTE | 2021-02-04 08:26 | DI.RAD_ITS ---
Exam(s) XR PORTABLE CHEST AP POST LINE EXAM: XR PORTABLE CHEST AP POST LINE CLINICAL HISTORY: post intubation tube placement TECHNIQUE: COMPARISON: CR XR PORTABLE CHEST AP POST LINE from 02/04/2021 CR XR PORTABLE CHEST AP POST LINE from 02/04/2021 CR,XR XR PORTABLE CHEST AP from 02/04/2021 FINDINGS: Portable AP film at 0850 hours. An endotracheal tube has been placed and lies With the tip of the tube about 6.5 cm above the fide. Note is again made of apparent bibasilar atelectasis, left lower lobe consolidation not excluded. IMPRESSION: RADIATION DOSE DELIVERED: Total DLP
--- NOTE | 2021-02-04 08:42 | CMPROGNOTE_ITS ---
- If Service Date Differs Date of service: 02/04/21 Time of Service: 08:42 Care Management Progress Note Pancho is a 55 year old male admitted to [facility] ICU on 02/02/2021 for Acute Pancreatitis, NIDDM, HTN, Alcohol Withdrawal. His care needs required him to be emergently transported to [facility] via EMS early this morning. EMS transportation arranged by nurse supervisor product inspection.
--- NOTE | 2021-02-04 08:42 | PDOC.CMPRO ---
- If Service Date Differs Date of service: 02/04/21 Time of Service: 08:42 Care Management Progress Note Pancho is a 55 year old male admitted to [facility] ICU on 02/02/2021 for Acute Pancreatitis, NIDDM, HTN, Alcohol Withdrawal. His care needs required him to be emergently transported to [facility] [place] via EMS early this morning. EMS transportation arranged by nurse building construction supervisor.
--- NOTE | 2021-02-04 08:45 | DI.RAD_ITS ---
Exam(s) XR PORTABLE CHEST AP POST LINE EXAM: XR PORTABLE CHEST AP POST LINE CLINICAL HISTORY: NG tube placement confirmation TECHNIQUE: COMPARISON: CR XR PORTABLE CHEST AP POST LINE from 02/04/2021 FINDINGS: Portable AP view at 0855 hours. Note is again made of left and right basilar atelectasis, superimpos ed left basilar consolidation may be present. Endotracheal tube again noted which appears to lie abo ut 6.5 cm above the fide. An NG tube has been placed which overlies the gastric body. IMPRESSION: RADIATION DOSE DELIVERED: Total DLP
[2021-02-04] MEDS: PROPOFOL 1,000 MG/100 ML BTL 9 MG (08:58)
[2021-02-04 09:22] LABS: BE -2 mmol/L (-2-3); HCO3 24 mmol/L (22-26); pCO2 43 mmHg (35-45); pH 7.34 (7.35-7.45); pO2 87 mmHg (80-105); sO2 96 % (95-98); tCO2 21 mmol/L (23-27)
[2021-02-04 09:25] LABS: Site Left Radial
[2021-02-04 09:26] LABS: FIO2 40 %
[2021-02-04] MEDS: MEROPENEM 1 GM in Normal Saline 100 ML IVPB (09:34)
--- NOTE | 2021-02-04 09:38 | W.PM.OP ---
Date of service: 02/04/21 Time of Service: 08:30 Operative Note Operative Note Procedure Description: Title of procedure: Endotracheal intubation Performed by: Chetna Powell MD Indications and/or provisional diagnosis: Hypoxic respiratory failure Consent: Consent obtained from patient who also discussed with his family. Type of anesthesia/sedation: 100 mg rocuronium, 100 mg ketamine Fluids given: See I&O Unless otherwise noted, there was no blood loss, specimens removed, cultures obtained, or drains retained. Timeout: A timeout was performed to identify proper patient and procedure Procedure technique/description of procedure: The patient was preoxygenated. Using a glide scope 3 a 7.5 endotracheal tube was placed under indirect visualization to 23 cm after 1 attempt. Bilateral breath sounds were heard without air sounds in the abdomen. Clinical exam as well as an end-tidal CO2 monitor were used to confirm tracheal placement of the ET tube. Chest x-ray obtained following the intubation revealed that the ET tube was slightly high and so this was advanced 2 cm with better positioning. Postprocedure diagnosis and findings: Same as preprocedure diagnosis Complications: None Chetna Powell MD
[2021-02-04] MEDS: Normal Saline Flush 10 ML SYR IVP (09:45)
--- NOTE | 2021-02-04 10:03 | DSE_ITS ---
DS: Diagnosis Discharge Diagnosis (1) Acute pancreatitis: Status: Acute Asessment and Plan: Secondary to choledocholithiasis. (2) Choledocholithiasis with acute cholecystitis with obstruction: Status: Acute (3) Transaminitis: Status: Acute (4) Hypocalcemia: Status: Acute (5) Lactic acidosis: Status: Acute (6) Aldosteronism: Status: Chronic (7) Secondary hypertension: Status: Chronic (8) Diabetes: Status: Chronic Discharge Plan Disposition Patient Disposition: [facility] Condition: Serious Discharge Details Reason For Visit: Acute Panreatitis,NIDDM,HTN, Admit Date/Time: 02/02/21 05:11 Admit Provider: Sal Castaneda Attending Provider: Sal Castaneda Primary Care Provider: Peña Turner Hospital Course Hospital Course: 55-year-old male with a history of secondary hypertension due to hyperal dosteronism, diabetes mellitus type 2, history of casual alcohol consumption with his last drink being December 08, 2020, no previous history of pancreatitis but does have a history of nephrolithiasis who presented to the emergency department February 02, 2021 with acute onset of epigastric abdominal pain and was diagnosed with acute pancreatitis. Initial lipase was greater than 15,000 with elevated total bilirubin of 1.3, AST 152, ALT 198, alkaline phosphatase was normal at 110. Triglycerides were normal at 101. CBC admission showed a white count 18,500 with a hemoglobin 16.4 g hematocrit 48% platelet count 218,000 and no left shift in his white cell count. CTA of the chest and abdomen was performed per ER attending's orders. This was read as showing diffuse interstitial infiltrates in the lungs and although there was motion artifact limiting the study no gross pulmonary emboli were seen in the first and second order pulmonary arterial branches. Abdominal pelvic portion of the CTA showed diffuse peripancreatic inflammatory stranding and fluid consistent with acute pancreatitis. He had fluid-filled loops of small bowel with air-fluid levels with no significant bowel wall thickening or inflammatory changes no evidence of obstruction. Findings are consistent with ileus. This initial read of his CTA was performed by virtual radiology and they specifically said there is no anmol lithiasis and no gallbladder wall thickening and no pericholecystic fluid and no intrahepatic or extrahepatic biliary ductal dilatation. Patient was admitted to the medical ICU as a medical/surgical floor overflow patient was made n.p.o. and given IV fluids antiemetics and narcotic analgesics including Dilaudid. Next morning patient was complaining of exquisite abdominal pain and required progre ssive doses of narcotics. His CTA was over read by our local radiologist on the evening of February 02, 2021 is confirming no evidence for acute pulmonary emboli. No pleural effusions. However it was read as showing cholelithiasis and a possible calculus in the lower portion of the common bile duct. There is peripancreatic streaking and fluid consistent with acute pancreatitis. Pancreatic duct was not dilated. Inflammatory streaking around the portal vein confluence and superior mesenteric vein was seen without evidence of thrombosis. He has fatty liver changes. Based on this reading an MRCP and abdominal ultrasound was ordered and performed on the morning of February 03, 2021. Abdominal ultrasound was suboptimal study but did confirm presence of gallstones in the gallbladder lumen although gallbladder wall did not appear grossly edematous. Common bile duct could not be evaluated but was noted to be slightly prominent and contain calculi in the lower common bile duct. Ascites was seen in both upper quadrants. MRI of the abdomen confirmed cholelithiasis with multiple intraluminal gallstones with a small foci in the lower common bile duct consistent with choledocholithiasis. Common bile duct was mildly dilated the pancreas showed abundant peripancreatic fluid with no dilatation of the pancreatic duct. Common bile duct measured 10 mm. Multiple tiny calculi were seen within the lower common bile duct. Patient's admission white count was 18,500 but by the next morning February 03, 2021 his white count had risen to 28,390 with a left shift with neutrophil count 25,000. His CRP was elevated as was his procalcitonin procalcitonin is 5.2 and CRP is greater than 25. Blood cultures were obtained and he was empirically started on Meropenem d/t fever, rising leukocytosis in setting of choledocholithiasis. His LDH which had not been measured on admission was 1047 on the day of transfer. His lipase had come down to 4600 on the day of transfer. Calcium dropped to 7.8. His transaminases had improved from admission with his AST declined to 94 and ALT to 95 and alkaline phosphatase remained within normal limits at 65. On the day prior to transfer because of increased abdominal pain he was put on a ketamine drip. Because of hypertensive urgency with systolic blood pressures of 190-200 he was started on nicardipine drip. He continued to exhibit tachycardia and required IV metoprolol for both blood pressure and heart rate control. He was transiently treated with enalapril late for his blood pressure by the building materials sales attendant but this was discontinued because of concern for potential REJI. In fact the patient did present with REJI with a creatinine level 1.4 whereas his baseline level creatinine is 0.97. At the time of transfer his creatinine was down to 1.1 with a BUN of 27. On the day prior to transfer pulmonary/critical care medicine consultation was obtained with Dr. Chetna Kerr. See her consult note for details. At that time she had recommended reduction in narcotic use and elimination of any benzodiazepines or sedating medications. Of note on the evening of February 02, 2021 the building materials sales attendant did start him on phenobarbital for what was misinterpreted as acute alcohol withdrawal. On February 03, 2021 he was started on a ketamine drip and his Dilaudid dosing was down graded. He was eventually weaned off the nicardipine drip however on the morning of February 04, 2021 he was showing signs of increasing oxygen requirements was on 5 L nasal cannula with tachypnea and and persistent tachycardia. Blood pressure remained stable. Because of concern of potential respiratory decline he was preemptively intubated by Dr. Kerr. I had spent much of the day on February 03, 2021 calling both [facility] and [facility] trying to obtain GI consultation for an urgent ERCP. Neither facility had any medical beds available in the hospital service was closed to transfers. I did reach an arrangement with [facility] for down and back urgent ERCP for the morning of February 03, 2021 however when the patient's condition had deteriorated to the point where Dr. Kerr felt it was necessary to intubate him that complicated the matter for simple down and back transfer for ERCP. I spoke with the transfer center at [facility] and at this time they have no MICU beds available for transfer. They updated their supervisor dairy sanitation and they spoke with their MICU director regarding his case. They suggested that I reach out to [facility] again which I did and I then spoke with medical ICU fellow Dr. Betsy Garrison and the tele-ICU critical care attending Dr. Surgenor and after review of the patient's case they accepted the patient to the service of Dr. iNc Mcfadden. Post intubation patient's vitals at the time of transfer BP 113/70, respiratory rate 20, heart rate 101 sinus tachycardia, O2 saturation 94% on an FiO2 of 40%, assist control 20 breaths/min, tidal volume 440 mL, PEEP 8 cm. His temp is 38.4. Home Meds and New Rx's Prescriptions: No Action metformin 500 mg tablet 1,000 mg PO DAILY RF: 0 (DME) Blood-Glucose Meter [Blood Glucose Monitor] 1 EACH EACH 1 ea Miscellaneous BID Qty: 1 RF: 1 ergocalciferol (vitamin D2) [Vitamin D2] 1,250 mcg (50,000 unit) capsule 1,250 mcg PO QWEEK Qty: 12 RF: 4 spironolactone 25 mg tablet 25 mg PO DAILY Qty: 90 RF: 3 (DME) Blood Glucose Test Strip 1 ea Miscellaneous DAILY Qty: 100 RF: 6 (DME) lancets 28 gauge misc 1 ea Miscellaneous DAILY Qty: 100 RF: 3 lisinopril 20 mg tablet 20 mg PO DAILY Qty: 90 RF: 3 amlodipine 5 mg tablet 5 mg PO DAILY Qty: 90 RF: 4 Discharge Instructions Instructions: Cholecystitis (DC), Pancreatitis (DC) Referrals: Nic Mcfadden [ [facility] STAFF PHYSICIAN] - Activity:: bedrest Diet:: NPO Discharge Orders Discharge Orders: Discharge Order (Routine); Ordered 02/04/21 Ordered By: Len Srivastava DS: Summary Time Spent with Patient providing and/or coordinating discharge services: Greater than 30 minutes Status at Discharge Functional status at discharge: bed bound Overall status at discharge: patient is not back to baseline Mental Status: other Speech and Movement: other Mood: other Affect: other Exam Narrative Exam Narrative: Patient is now intubated and sedated on propofol drip 50 mcg/kg/min and ketamine 0.4 mg/kg/hr. He is nonresponsive to tactile stimulation Lungs: clear w/ diminished breath sounds at bases; no rhonchi or wheezes Heart: tachycardia but regular; no murmur Abdomen: absent bowel sounds, distended (prior to intubation he had generalized tenderness w/ more focal pain in the epigastrium and LUQ); no bruits and no palpable organomegaly Extremities: hands w/ 1+ pitting edema; legs and feet are not edematous Neuro/psych: heavily sedated, non-arouseable now; prior to intubation he was lethargic but arouseable and he was able to follow commands; he was aware of his location and reason for admission to the hospital Psych Mental Status: other Speech and Movement: other Mood: other Affect: other DS: Data Vitals/I&O Vitals and I&O: Vital Signs Temperature 37.2 C 02/04/21 04:03 Temperature Source Temporal Artery Scan 02/04/21 04:03 Pulse 138 H 02/04/21 09:36 Pulse Rhythm Regular 02/03/21 20:41 Pulse 130 H 02/04/21 09:40 Respiratory Rate 22 02/04/21 09:40 Respiratory Effort 02/04/21 04:03 Respiratory Depth Normal 02/03/21 20:46 Respiratory Pattern Tachypnea 02/04/21 04:03 Blood Pressure 171/93 H 02/04/21 09:36 Blood Pressure Mean 109 02/04/21 09:32 Blood Pressure Position Supine 02/04/21 04:03 Pulse Oximetry 94 02/04/21 09:40 Respiratory End-tidal CO2 48 02/04/21 09:40 Oxygen Delivery Method Nasal Cannula 02/04/21 04:03 Oxygen Flow Rate 5 02/04/21 04:03 Fraction of Inspired Oxygen (FIO2) 100 02/04/21 08:23 Pain Level 4 02/04/21 06:09 Intake & Output 02/03/21 02/03/21 02/04/21 11:59 23:59 11:59 Intake Total 3041.833 / 5272.775 2230.942 / 5272.775 1521.608 / 1521.608 Output Total 1025 / 1645 620 / 1645 650 / 650 Balance 20163 / 3627.775 1610.942 / 3627.77 871.608 / 871.608 Intake: IV 3041.833 / 5272.775 2230.942 / 5272.775 1521.608 / 1521.608 Output: Urine 1025 / 1645 620 / 1645 650 / 650 Other: Urine Color [place] Light Jeannette Dark Jeannette Urine Appearance Clear Clear Clear Urine Odor None None Comment escobar in place Voiding Methods Urinal Urinal Data Completed and Pending Labs on day of discharge: Labs from last 24 hours 02/04/21 02/04/21 02/04/21 09:14 07:44 07:08 WBC RBC Hgb Hct MCV MCH MCHC RDW Plt Count MPV Immature Gran % Neutrophils % Lymphocytes % Monocytes % Eosinophils % Basophils % Nucleated RBC % Absolute Neutrophils Absolute Lymphocytes Absolute Monocytes Absolute Eosinophils Absolute Basophils RBC Morphology ABG Sample Site Left Radial Left Radial ABG pH 7.34 L 7.40 ABG pCO2 43 37 ABG pO2 87 80 ABG HCO3 24 23 ABG Total CO2 21 L 21 L ABG O2 Saturation 96 96 ABG Base Excess -2 -2 VBG Lactate 1.9 H Oxygen Liter Flow VC 440/22/5 4 FiO2 40 Sodium Potassium Chloride Carbon Dioxide Anion Gap BUN Creatinine Estimated GFR/1.73 m2 Glucose Calcium Total Bilirubin AST ALT Alkaline Phosphatase Lactate Dehydrogenase C-Reactive Protein Total Protein Albumin Lipase Procalcitonin 02/04/21 02/04/21 02/04/21 07:08 07:08 05:35 WBC 23.62 H RBC 4.63 Hgb 14.4 D Hct 43.1 MCV 93.1 MCH 31.1 MCHC 33.4 RDW 14.3 H Plt Count 112 L MPV Immature Gran % 1.0 Neutrophils % 88.3 Lymphocytes % 4.6 Monocytes % 5.8 Eosinophils % 0.0 Basophils % 0.3 Nucleated RBC % 0 Absolute Neutrophils 20.86 H Absolute Lymphocytes 1.09 L Absolute Monocytes 1.37 H Absolute Eosinophils 0.00 Absolute Basophils 0.07 RBC Morphology Normal ABG Sample Site Pending ABG pH Pending ABG pCO2 Pending ABG pO2 Pending ABG HCO3 Pending ABG Total CO2 Pending ABG O2 Saturation Pending ABG Base Excess Pending VBG Lactate Oxygen Liter Flow FiO2 Sodium 142 Potassium 4.1 Chloride 110 H Carbon Dioxide 21.8 Anion Gap 10.2 BUN 27 H D Creatinine 1.1 Estimated GFR/1.73 m2 >= 60.00 Glucose 164 H D Calcium 7.8 L Total Bilirubin 1.4 H AST 94 H ALT 95 H Alkaline Phosphatase 65 Lactate Dehydrogenase 1047 H C-Reactive Protein > 25.00 H Total Protein 6.3 L Albumin 2.9 L Lipase 4695 H Procalcitonin 02/03/21 19:52 WBC RBC Hgb Hct MCV MCH MCHC RDW Plt Count MPV Immature Gran % Neutrophils % Lymphocytes % Monocytes % Eosinophils % Basophils % Nucleated RBC % Absolute Neutrophils Absolute Lymphocytes Absolute Monocytes Absolute Eosinophils Absolute Basophils RBC Morphology ABG Sample Site ABG pH ABG pCO2 ABG pO2 ABG HCO3 ABG Total CO2 ABG O2 Saturation ABG Base Excess VBG Lactate Oxygen Liter Flow FiO2 Sodium Potassium Chloride Carbon Dioxide Anion Gap BUN Creatinine Estimated GFR/1.73 m2 Glucose Calcium Total Bilirubin AST ALT Alkaline Phosphatase Lactate Dehydrogenase C-Reactive Protein Total Protein Albumin Lipase Procalcitonin 5.2 02/03/21 08:23 Blood Blood Culture - Pending 02/03/21 08:10 Blood Blood Culture - Pending Preliminary micro results at discharge 02/03/21 08:05 Urine Culture - Preliminary Urine - Voided 02/03/21 08:23 Blood Culture - Pending Blood 02/03/21 08:10 Blood Culture - Pending Blood [facility] Medical History Diabetes Diverticulosis 07/31 [place] [place]05/07/15) possible aldosteronism. [place] [facility] [place] avoid diuretics Kidney stones 1999 Rotator cuff injury Left shoulder diffuse rotator cuff tear, [place] [facility] [place], some residual motion loss. 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 Surgical History H/O colonoscopy Previous back surgery Rotator Cuff Repair 2010 LEFT Family History Mother Hyperlipidemia Diabetes Father Diabetes Hypertension Brother No problems noted. Brother No problems noted. Son Depression Daughter No problems noted. Social History Smoking/Tobacco Use Status: Never Smoking risk assessment performed?: Yes Alcohol Intake: current Alcohol Intake frequency: holidays/special occasions only Substance use type: does not use Caregiver/Support person: No Household members: family Housing: house Communication Needs: None Pets and animals: Yes Pets and animals: cat(s) and dog(s) Sexually active: Yes Current gender identity: male What is your relationship status?: How often do you talk on the phone with friends or family?: three or more times per week How often do you get together with friends or relatives?: once per week How often do you attend druze or voodoo services?: decline to answer Do you belong to any clubs or organized social groups?: no Panel score (0-1 are the most socially isolated patients): 1 What type of physical activity do you participate in: walking Duration: 15-30 minutes/day Cyndi/Druze: Jehovah'S Witness Special cyndi needs: No Seatbelt use: always Drive intox or ride w/intox armored truck driver: No Do you feel safe in your relationship?: Yes
== END 2021-02-04 10:45 | disposition short-term general hospital (02) | DRG 438 ==
LOC: ER 05:38 → ICU 13:35
PROVIDERS: Internal Medicine; Admitting Provider Family Medicine; Emergency Provider Emergency Medicine; PCP Emergency Medicine; Visit Provider Family Medicine
DX: K85.10 Biliary acute pancreatitis without necrosis or infection (principal); J96.91 Respiratory failure, unspecified with hypoxia; K56.7 Ileus, unspecified; E87.2 Acidosis; J98.11 Atelectasis; N17.9 Acute kidney failure, unspecified; K80.63 Calculus of gallbladder and bile duct with acute cholecystitis with obstruction; E26.9 Hyperaldosteronism, unspecified; E11.9 Type 2 diabetes mellitus without complications; E86.0 Dehydration; I15.9 Secondary hypertension, unspecified; Z79.84 Long term (current) use of oral hypoglycemic drugs; K57.30 Diverticulosis of large intestine without perforation or abscess without bleeding; Z20.822 Contact with and (suspected) exposure to COVID-19; I10 Essential (primary) hypertension; E87.8 Other disorders of electrolyte and fluid balance, not elsewhere classified; E83.51 Hypocalcemia; R00.0 Tachycardia, unspecified; I16.0 Hypertensive urgency
CPT/HCPCS: 31500; 36410; 36415; 71045; 71275; 74177; 80053; 80061; 82805; 83690; 84145; 87040; 87635; 93005; 96361; 96374; 96375; 96376; 99285; 36600; 74181; 76700; 80320; 81003; 83605; 83615; 83735; 84484; 85025; 85610; 86140; 87086; 93010; 94002; 99223; 99232; 99233; 99239; 99356; J0131; J1200; J1644; J2060; J2250; J2270; J2405; J2560; J3010; J3490

== ENCOUNTER 2021-03-18 10:46 | Outpatient (CLI) | payer MEDICAID, SELFPAY ==
[2021-03-18 13:08] LABS: Abs Immature Grans 0.02 10^3/uL (0.0-0.06); Absolute Basophil Count 0.08 10^3/uL (0.0-0.2); Absolute Eosinophil Count 0.34 10^3/uL (0.0-0.7); Absolute Lymphocyte Count 1.18 10^3/uL (1.2-3.4); Absolute Monocyte Count 0.43 10^3/uL (0.1-0.8); Absolute Neutrophil Count 3.95 10^3/uL (1.2-6.7); Basophils % 1.3; Eosinophils % 5.7; HCT 37.9 % (40.0-50.0); HGB 12.4 g/dL (13.5-17.5); Immature Grans % 0.3; Lymphocytes % 19.7; MCH 30.5 pg (27.0-33.0); MCHC 32.7 % (32.0-36.0); MCV 93.3 fL (80-95); MPV 11.1 fL (8.0-11.0); Monocytes % 7.2; Neutrophils % 65.8; Nucleated RBC 0 %; Platelet Count 199 10^3/uL (130-400); RBC 4.06 10^6/uL (4.36-5.78); RDW 14.3 % (11.8-14.1); RDW-SD 49.7 fL
[2021-03-18 13:16] LABS: ALT 77 U/L (16-63); AST 27 U/L (15-37); Albumin 4.2 g/dL (3.4-5.0); Alkaline Phosphatase 87 U/L (46-116); Amylase 191 U/L (25-115); Anion Gap 9.5 mmol/L (3-11); BUN 16 mg/dL (7-18); Bilirubin, Total 0.5 mg/dL (0.2-1.0); CO2 27.5 mmol/L (21.0-32.0); Calcium 9.5 mg/dL (8.5-10.1); Chloride 108 mmol/L (98-107); Glucose 124 mg/dL (74-106); Lipase 171 U/L (73-393); Potassium 3.9 mmol/L (3.5-5.1); Sodium 145 mmol/L (136-145); Total Protein 7.3 g/dL (6.4-8.2)
== END 2021-03-18 10:47 | disposition home or self-care (01) ==
LOC: LOS 10:47
PROVIDERS: PCP Emergency Medicine; Visit Provider Emergency Medicine
DX: E11.9 Type 2 diabetes mellitus without complications; K80.43 Calculus of bile duct with acute cholecystitis with obstruction; K85.80 Other acute pancreatitis without necrosis or infection
CPT/HCPCS: 36415; 80053; 83690; 82150; 83036; 85025

== ENCOUNTER 2021-04-18 16:14 | Inpatient (IN) | payer MEDICAID, SELFPAY ==
[2021-04-18] VITALS (46 sets, daily range): BP systolic 77–112; BP diastolic 47–65; PULSE 94–120; RESP 12–33; TEMP 36.6–38.6; O2SAT 92–100
--- NOTE | 2021-04-18 16:22 | ED.GENADUL_ITS ---
Discharge Plan Disposition Patient Disposition: [facility] INPATIENT Condition: Stable Discharge Details Chief Complaint: Abd Prob Clinical Impression: Necrotizing pancreatitis, Fever Primary Care Provider: Peña Turner ED Provider: Aniket Frank Home Meds and New Rx's Prescriptions: No Action metformin 500 mg tablet 1,000 mg PO DAILY RF: 0 (DME) Blood Glucose Test Strip 1 ea Miscellaneous DAILY Qty: 100 RF: 6 (DME) lancets 28 gauge misc 1 ea Miscellaneous DAILY Qty: 100 RF: 3 (DME) Blood-Glucose Meter [Blood Glucose Monitor] 1 EACH EACH 1 ea Miscellaneous BID Qty: 1 RF: 1 ergocalciferol (vitamin D2) [Vitamin D2] 1,250 mcg (50,000 unit) capsule 1,250 mcg PO QWEEK Qty: 12 RF: 4 spironolactone 25 mg tablet 25 mg PO DAILY Qty: 90 RF: 3 lisinopril 20 mg tablet 20 mg PO DAILY Qty: 90 RF: 3 amlodipine 5 mg tablet 5 mg PO DAILY Qty: 90 RF: 4 Medical Decision Making 56 year-old male with a history of secondary hypertension due to hyperaldosteronism, diabetes mellitus type 2, who had pancreatitis in January secondary to choledocholithiasis and had ercp done at [facility] [place] comes in with abdominal pain. He had a cholecystectomy done at [facility] [place] on 03/27 that was uncomplicated and had been doing well but then 2 days ago started to have abdominal pain and felt weak, today started to vomit and is noted to be febrile here. He doesn't smoke or drink alcohol and denies drug use. He denies cough, rashes, or urinary symptoms. No headache or neck stiffness. He is tachycardic to 120 stable BP. clear lung sounds, no murmurs, the laparoscopic sites are healed without erythema. His abdomen is soft but he is tender across the upper abdomen, no distention. Given his pain and fever concern for multiple etiologies including pancreatitis, abscess, hepatitis. He is noted to be tachycardic and given recent surgery concern for possible PE. Will obtain cta of the chest and ct abd/pelvis and also obtain labs including cbc, ua, cultures, and cmp. pt with a MAP of 70 after 2 liters of fluid maintenance fluids ordered, HR is 105, wbc of 18, normal lipase, does have an gricelda, and mag is 0.9 so repletion ordered. I ordered zosyn given his fever, leukocytosis lactate of 2.5 and tachycardia, given the abdominal pain concern for intrabdominal source. ct shows findings consistent with necrotizing pancreatitis with 19.5x7.7x9.8cm fluid collection, vitals unchanged, MAP of 70, will discuss with [facility] [place] on possible transfer and recs on further management spoke with general surgeon Dr. Monroe at [facility] [place] who reviewed the case and images and advised they would not perform any acute interventions and recommended supportive care at this time, if it fails to improve with this they would consider doing an endoscopic drainage but would not do this acutely. Will discuss with hospitalist about admission here Medical Records Medical records reviewed: Yes I reviewed the patient's medical records. Imaging Data Radiologic Study: Attestation: I personally reviewed and interpreted this imaging study as follows: Imaging: CT Scan Radiologist's impression: IMPRESSION: 1. Findings consistent with necrotizing pancreatitis with walled-off necrosis. 2. Changes of the spine and pelvis concerning for ankylosing spondylitis, correlate with clinical and laboratory values. 3. Small amount of free intraperitoneal fluid, likely related to changes of the pancreas. Lab Data Lab results reviewed: Yes I reviewed the patient's lab results. HPI General Mode of arrival: ambulatory . Date/Time Provider Initiated Documentation: 04/18/21 16:15 . Limitations to Documentation: no limitations . Information obtained by: patient . History of Present Illness 56 year old M presents to the emergency department with the chief complaint of abdominal pain, described as moderate, Quality is described as aching, and is localized to the abdomen. Patient reports no radiation. Patient started experiencing this day(s) (2) and it has been constant. No relieving factors improve symptom(s), No exacerbating factors reported . Patient notes nausea/vomiting. Patient did receive the following treatments prior to arrival, none Related Data Home Medications Medication Instructions Recorded Confirmed metformin 500 mg tablet 1,000 mg PO DAILY tab 04/12/19 04/18/21 ergocalciferol (vitamin D2) 1,250 1,250 mcg PO QWEEK #12 cap 08/24/19 04/18/21 mcg (50,000 unit) capsule spironolactone 25 mg tablet 25 mg PO DAILY #90 tab-cap 07/05/20 04/18/21 lisinopril 20 mg tablet 20 mg PO DAILY #90 tab-cap 04/28/21 10/29/21 amlodipine 5 mg tablet 5 mg PO DAILY #90 tab-cap 01/27/21 04/18/21 blood sugar diagnostic #100 strip 03/18/21 03/18/21 lancets 28 gauge #100 ea 03/18/21 03/18/21 Previous Rx's Medication Instructions Recorded ergocalciferol (vitamin D2) 1,250 1,250 mcg PO QWEEK #12 cap 08/23/ mcg (50,000 unit) capsule spironolactone 25 mg tablet 25 mg PO DAILY #90 tab-cap 07/05/20 lisinopril 20 mg tablet 20 mg PO DAILY #90 tab-cap 10/16/20 amlodipine 5 mg tablet 5 mg PO DAILY #90 tab-cap 01/27/21 blood sugar diagnostic #100 strip 03/18/21 lancets 28 gauge #100 ea 03/18/21 Allergies Allergy/AdvReac Type Severity Reaction Status Date / Time No Known Allergies Allergy Verified 04/18/21 16:34 General NICOLAS: 3 Review of Systems All systems reviewed & are unremarkable except as noted in HPI and below Constitutional Constitutional: Denies chills and Denies fever(s) Cardiovascular Cardiovascular: Denies chest pain and Denies dyspnea Respiratory Respiratory: Denies cough and Denies dyspnea Musculoskeletal Musculoskeletal: Denies joint swelling FOR[facility] Medical History Diabetes Diverticulosis 07/31 COLONOSCOPY: PANDIVERTICULOSIS 01/14/16-[facility] Essential hypertension (05/07/15) possible aldosteronism. See [facility] notes avoid diuretics Kidney stones 1999 Rotator cuff injury Left shoulder diffuse rotator cuff tear, repaired at [facility] 2009, some residual motion loss. 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 Surgical History H/O colonoscopy Previous back surgery Rotator Cuff Repair 2009 LEFT Family History Mother Hyperlipidemia Diabetes Father Diabetes Hypertension Brother No problems noted. Brother No problems noted. Son Depression Daughter No problems noted. Social History Smoking/Tobacco Use Status: Never Smoking risk assessment performed?: Yes Alcohol Intake: current Alcohol Intake frequency: holidays/special occasions only Substance use type: does not use Caregiver/Support person: No Household members: family Housing: house Communication Needs: None Pets and animals: Yes Pets and animals: cat(s) and dog(s) Sexually active: Yes Current gender identity: male What is your relationship status?: How often do you talk on the phone with friends or family?: three or more times per week How often do you get together with friends or relatives?: once per week How often do you attend yarsani or yazidi services?: decline to answer Do you belong to any clubs or organized social groups?: no Panel score (0-1 are the most socially isolated patients): 1 What type of physical activity do you participate in: walking Duration: 15-30 minutes/day Cyndi/Episcopal: Sabianism Special cyndi needs: No Seatbelt use: always Drive intox or ride w/intox belly dump driver: No Do you feel safe in your relationship?: Yes Exam Const General: no acute distress Orientation: alert HENMT Head: normal to inspection Ears: external ears normal General nose exam: external nose normal Mouth: moist mucous membranes Eyes General: appearance normal, both eyes and all related structures Neck Neck: normal visual inspection Resp Effort & Inspection: normal respiratory effort and able to speak in complete sentences Cardio Rate: regular rate GI Palpation: soft and tender Skin General skin exam: no rashes or lesions noted Neuro General: patient alert and patient oriented x3 Extrem General: normal to inspection Psych Mental Status: mental status grossly normal
--- NOTE | 2021-04-18 16:30 | DI.CT_ITS ---
Exam(s) CT CHEST PE ABD PELVIS W EXAM: CT CHEST PE ABD PELVIS W CLINICAL HISTORY: fever, recent surgery, tachycardia. TECHNIQUE: Imaging Protocol: Axial CT angiography was performed with multi-slice acquisition and m ulti-planar and/or 3D reconstructions. CONTRAST MATERIAL: Intravenous: Omnipaque 350 Contrast volume:100 ml Oral: None COMPARISON: CT CT CHEST PE ABD PELVIS W from 02/02/2021 FINDINGS: CHEST: PULMONARY ARTERIES: There are no intra-arterial filling defects to suggest the presence of acute pulm onary emboli. LUNGS: There is no evidence of pulmonary infarction.Minimal increased dependent markings in the poste rior aspect of the lung aldridge. There are no pleural effusions. MEDIASTINUM: There is no hilar nor mediastinal adenopathy. Visualized thyroid unremarkable. CARDIAC: Heart size is normal. There is no pericardial effusion. There is no significant shift of t he interventricular septum.Caliber of the thoracic aorta is within normal limits. OSSEOUS: No significant osseous lesions.. ABDOMEN: LIVER: The extent of hepatic steatosis has decreased when compared to the CT scan of January 2021. Th ere are no discrete focal hepatic lesions. GALLBLADDER/BILIARY: There has been interval cholecystectomy. CBD is not dilated. PANCREAS: There has been significant deterioration in the appearance of the pancreas. Also the entir e pancreas is presently necrotic and repair laced with combination of necrosis and large pseudocyst. There is sparing of a small part of the tail. The pancreatic head and uncinate process are also inv olved. This necrotic-and fluid area measures approximately 13.5 cm across by maximum 7.5 cm AP by 8 cm craniocaudal. This also occupies the lesser sac and is contiguous with the gastric wall. SPLEEN: Spleen is not enlarged. There are no intrasplenic lesions. The splenic vein is now thin but not thrombosed and the same is true of the superior mesenteric vein. The portal vein confluence and main portal vein are demonstrated to be patent. ADRENALS: There are no significant adrenal masses. KIDNEYS:No cysts evident. No calculi nor hydronephrosis. No solid renal masses. ABDOMINAL AORTA: Abdominal aorta is not enlarged. LYMPH NODES: There is no retroperitoneal or para-aortic adenopathy. ABDOMINAL WALL/GI: No evidence of significant anterior abdominal wall hernia. No bowel obstruction. PELVIS: LYMPH NODES: There is no intrapelvic nor inguinal adenopathy. GI: No evidence of appendicitis.No evidence of sigmoid diverticulitis. URINARY BLADDER: No calculi nor masses evident REPRODUCTIVE: Prostate not enlarged. OSSEOUS: Ankylosis of the sacroiliac joints is again noted as are bilateral pars defects at L5 level. No lytic nor blastic osseous lesions evident. Small amount of fluid in the dependent aspect of the pelvis noted. This is most probably related to the pancreatic findings. IMPRESSION: 1. No evidence of acute pulmonary emboli nor pulmonary infarction. No pleural effusions. 2. There has been significant progression of pancreatic findings when compared to the CT scan of 01/19. There is sequelae of necrotizing pancreatitis involving almost the entire pancreas with larg e contiguous heterogeneous fluid collectionswhich exhibit mural enhancement consistent with combinati on of necrosis and large pseudocysts. There is almost no remaining normal pancreas. This also occupies the lesser sac and reaches the posterior wall of the stomach. 3. The adjacent splenic and superior mesenteric veins are thin but non thrombosed and the portal vein remains patent. 4. Ankylosis of the sacroiliac joints again noted. Correlation with any history of ankylosing spondy litis recommended. RADIATION DOSE DELIVERED: 1,637.96mGy.cm Total DLP DATA REPOSITORY: All CT scans at this facility are submitted to the National Radiology Data Registry (NRDR) Dose Index Registry (DIR) with the [employer] (ACR). RADIATION OPTIMIZATION: All CT scans at this facility use at least one of these dose optimization te chniques: automated exposure control; mA and/or kV adjustment per patient size (includes targeted exa ms where dose is matched to clinical indication); or iterative reconstruction.
[2021-04-18 16:46] LABS: Source Nasal/Nares
[2021-04-18] MEDS: Normal Saline 1,000 ML 1000 ML IV ×2 (17:00→17:20)
[2021-04-18 17:08] LABS: BE (Venous) -7 mmol/L (-2-3); HCO3 (Venous) 17 mmol/L (23-28); O2 Sat (Venous) 95 %; TCO2 (Venous) 16 mmol/L (24-29); pCO2 (Venous) 26 mmHg (41-51); pH (Venous) 7.43 (7.31-7.41); pO2 (Venous) 68 mmHg
[2021-04-18 17:09] LABS: Abs Immature Grans 0.43 10^3/uL (0.0-0.06); HGB 12.1 g/dL (13.5-17.5); MCH 30.7 pg (27.0-33.0); MCHC 33.6 % (32.0-36.0); MCV 91.4 fL (80-95); MPV 12.2 fL (8.0-11.0); Nucleated RBC 0 %; RBC 3.94 10^6/uL (4.36-5.78); RDW 14.6 % (11.8-14.1); RDW-SD 49.7 fL
[2021-04-18 17:13] LABS: Lactate 2.5 mmol/L (0.6-1.4)
[2021-04-18 17:24] LABS: Absolute Eosinophil Count 0.94 10^3/uL (0.0-0.7); Absolute Lymphocyte Count 0.38 10^3/uL (1.2-3.4); Absolute Monocyte Count 0.94 10^3/uL (0.1-0.8); Absolute Neutrophil Count 16.36 10^3/uL (1.2-6.7); Bands % 11
[2021-04-18 17:25] LABS: Diff Comment Manual Differential; Metamyelocytes % 1; Platelet Count 120 10^3/uL (130-400); RBC Morphology Normal
[2021-04-18] MEDS: Omnipaque 350 MG/ML 100 ML BTL IJ (17:26)
[2021-04-18] MEDS: Normal Saline - Diluent 50 ML VIAL IV (17:27)
[2021-04-18 17:28] LABS: ALT 28 U/L (16-63); AST 12 U/L (15-37); Albumin 3.4 g/dL (3.4-5.0); Alkaline Phosphatase 61 U/L (46-116); Anion Gap 15.9 mmol/L (3-11); BUN 33 mg/dL (7-18); Bilirubin, Direct 0.2 mg/dL (0.0-0.2); Bilirubin, Total 0.6 mg/dL (0.2-1.0); CO2 19.1 mmol/L (21.0-32.0); CREATININE 1.9 mg/dL (0.70-1.30); Calcium 8.2 mg/dL (8.5-10.1); Chloride 106 mmol/L (98-107); Estimated GFR 36.72 (mL/min/1.73m2); Glucose 167 mg/dL (74-106); Lipase 215 U/L (73-393); Magnesium 0.9 mg/dL (1.8-2.4); Potassium 3.7 mmol/L (3.5-5.1); Sodium 141 mmol/L (136-145); Total Protein 6.7 g/dL (6.4-8.2)
[2021-04-18 17:31] LABS: ETHANOL BLOOD < 3.0 mg/dL (<10)
[2021-04-18 17:35] LABS: COVID-19 PCR Negative (Negative)
[2021-04-18] MEDS: HYDROmorphone 2 MG/ML VIAL 1 MG IVP ×2 (17:35→20:27)
[2021-04-18] MEDS: Ondansetron 4 MG/2 ML VIAL IVP (17:37)
[2021-04-18 17:44] LABS: Procalcitonin 9.2 ng/mL
[2021-04-18] MEDS: Magnesium Oxide 400 MG TAB 800 MG PO (18:15)
[2021-04-18] MEDS: MAGNESIUM SULFATE 2 GM/50 ML BAG IVPB (18:20)
[2021-04-18] MEDS: PIPERACILLIN/TAZO 4.5 GM in Normal Saline 100 ML IVPB (18:30)
--- NOTE | 2021-04-18 18:40 | DI.VRAD_ITS ---
PROCEDURE INFORMATION: Exam: CTA Chest With Contrast Exam date and time: 04/18/2021 4:45 PM Age: 56 years old Clinical indication: Other: Fever, shortness of breath, recent surgery, tachycardia, pancreatitis; Difficulty breathing or dyspnea TECHNIQUE: Imaging protocol: Computed tomographic angiography of the chest with contrast. 3D rendering (Not supervised by radiologist): MIP and/or 3D reconstructed images were created by the technologist. Radiation optimization: All CT scans at this facility use at least one of these dose optimization techniques: automated exposure control; mA and/or kV adjustment per patient size (includes targeted exams where dose is matched to clinical indication); or iterative reconstruction. Contrast material: OMNIPAQUE 350; Contrast volume: 100 ml; Contrast route: INTRAVENOUS (IV); COMPARISON: CT CHEST PE ABD PELVIS W 02/02/2021 4:28 AM FINDINGS: Pulmonary arteries: Normal. No pulmonary emboli. Aorta: Mild atherosclerosis of the thoracic aorta. No evidence of aneurysm or dissection. Lungs: Mild dependent changes at the lung bases. Pleural spaces: Unremarkable. No pneumothorax. No pleural effusion. Heart: Mild coronary artery calcification greatest at the left anterior descending. Lymph nodes: Unremarkable. No enlarged lymph nodes. Bones/joints: Mild degenerative changes of the thoracic spine. Soft tissues: Unremarkable. IMPRESSION: No CT evidence of pulmonary arterial embolism. PROCEDURE INFORMATION: Exam: CT Angiography Abdomen With Contrast Exam date and time: 04/18/2021 4:45 PM Age: 56 years old Clinical indication: Other: Fever, shortness of breath, recent surgery, tachycardia, pancreatitis; Difficulty breathing or dyspnea TECHNIQUE: Imaging protocol: Computed tomographic angiography images of the abdomen with intravenous contrast material. 3D rendering (Not supervised by radiologist): MIP and/or 3D reconstructed images were created by the technologist. Radiation optimization: All CT scans at this facility use at least one of these dose optimization techniques: automated exposure control; mA and/or kV adjustment per patient size (includes targeted exams where dose is matched to clinical indication); or iterative reconstruction. Contrast material: OMNIPAQUE 350; Contrast volume: 100 ml; Contrast route: INTRAVENOUS (IV); COMPARISON: CT CHEST PE ABD PELVIS W 02/02/2021 4:28 AM FINDINGS: Aorta: Mild atherosclerosis of the abdominal aorta. Celiac trunk and mesenteric arteries: No occlusion or significant stenosis. Renal arteries: No occlusion or significant stenosis. Portal Venous System: The pancreatic collection surrounds the superior mesenteric vein and abuts the splenic vein, however there is no evidence of venous thrombosis. Liver: Normal. No mass. Gallbladder and bile ducts: Status post cholecystectomy. Pancreas: Necrotizing pancreatitis with heterogeneous surrounding fluid collections demonstrating well-defined enhancing samano measuring up to 19.5 x 7.7 x 9.8 cm. Surrounding fatty reticulation. Spleen: Normal. No splenomegaly. Adrenals: Mild adrenal hypertrophy. Kidneys and ureters: Normal. No hydronephrosis. Stomach and bowel: Mild wall thickening and hyperenhancement of the stomach and duodenum, likely reflecting reactive changes. Lymph nodes: Unremarkable. No enlarged lymph nodes. Gastrohepatic lymphadenopathy measures up to 1.1 cm short axis. Intraperitoneal space: Small amount of free fluid in the pelvis and along the pericolic gutters. Bones/joints: Ankylosis of the sacroiliac joints. Morphologic changes of the thoracic spine raise concern for changes of ankylosing spondylitis. Status post laminectomy at L1. Soft tissues: Unremarkable. IMPRESSION: 1. Findings consistent with necrotizing pancreatitis with walled-off necrosis. 2. Changes of the spine and pelvis concerning for ankylosing spondylitis, correlate with clinical and laboratory values. 3. Small amount of free intraperitoneal fluid, likely related to changes of the pancreas. Dictated and Authenticated by: Vazquez Cifuentes MD. Ordering:ANNE MARIE Marcial MD
[2021-04-18 20:30] LABS: Bilirubin Negative (Negative); Blood Moderate (Negative); Clarity Sl Cloudy (Clear); Glucose Negative (Negative); Ketones Negative (Negative); Leukocyte Esterase Negative (Negative); Nitrite Negative (Negative); Urobilinogen 0.2 EU/dL (Up TO 0.2); pH 5.5 (5-8)
[2021-04-18 20:38] LABS: Bacteria Moderate HPF (Negative); C & S Indicated? Yes; Casts 0-2 Hyaline LPF (Negative); Crystals Negative HPF (Negative); Epithelial Cells Few HPF (Negative); Mucus Trace (Negative); Other Cells Few Transitional (Negative)
--- NOTE | 2021-04-18 21:37 | NUR.NOTE ---
Nursing Note: RN spoke with MD regarding patients BP. No new orders at this time.
--- NOTE | 2021-04-18 23:28 | HPE_ITS ---
Date of service: 04/18/21 Time of Service: 23:28 Assessment and Plan Assessment and plan (1) Necrotizing pancreatitis: Status: Acute Assessment and plan: Patient has CT evidence of necrotizing pancreatitis with heterogeneous surrounding fluid collection and a well-defined phlegmon measuring 19.5 cm x 7.7 cm x 9.8 cm. There is no evidence of gas in the portal venous system or extraluminal gas on CT scan. Does have a small amount of free fluid in the pelvis and along the paracolic gutters. Likely has an infected phlegmon. Blood cultures have been drawn and patient has been started on broad-spectrum antibiotics with Zosyn. I will keep him n.p.o. continue with hydration, antiemetics, narcotic analgesics. I will consult with [facility] general surgery in the morning to discuss setting him up for endoscopic drainage of the phlegmon. If he has recurrent hypotensive then will consider central line and vasopressors but at present time he is maintaining an adequate mean arterial pressure and he is alert and oriented and not symptomatic from his blood pressures. I have withheld all of his antihypertensive medications at this time and kept him n.p.o. (2) Fever: Status: Acute Assessment and plan: Blood and urine cultures have been sent off. Will continue Zosyn at renally adjusted doses. Qualifiers: Fever type: unspecified Qualified Code(s): R50.9 - Fever, unspecified (3) Acute kidney injury (nontraumatic): Status: Acute Assessment and plan: Acute prerenal azotemia secondary to fever and necrotizing pancreatitis and poor oral intake. Continue IV fluid hydration and monitor his urine output and monitor his daily BMP. Avoid nephrotoxins and adjust all medications per his renal clearance. (4) Diabetes: Status: Chronic Assessment and plan: Metformin is on hold at this time. Will monitor his blood sugars every 4 hours and give him NovoLog per insulin sensitive sliding scale. 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: without chcf use Diabetes mellitus complication status: without complication Qualified Code(s): E11.9 - Type 2 diabetes mellitus without complications History of Present Illness History of Present Illness Chief Complaint: abdominal pain, nausea and vomiting and chills Narrative: 56-year-old white male with a history of hypertension secondary to hyperaldosteronism, diabetes mellitus type 2 controlled with Metformin and diet, history of casual alcohol consumption with his last drink being a glass of wine on his birthday in February, history of gallstone pancreatitis causing choledocholithiasis and cholecystitis admitted February 04, 2021 to [facility] and subsequently transferred to [facility] February 04, 2021 after being intubated for acute respiratory failure and being treated for hypertensive urgency. He was treated at [facility] for his acute pancreatitis and once that calm down he subsequently was scheduled for outpatient ERCP and removal of his choledocholithiasis. That was performed summer around March 08, 2021. He has since been on a strict organic diet with intermittent fasting he says blood sugars are under excellent control. He underwent cholecystectomy March 26, 2021. He presents to emergency department this evening with acute abdominal pain nausea and biliary vomiting but no hematemesis and no hematochezia or melena. He has also had fever and chills. Onset of his symptoms were 3 days ago although the vomiting began today. Upon arrival to emergency department he was febrile to 38.6 and he was tachycardic with a heart rate of 120 bpm. He was not tachypneic on arrival. Nor was he hypoxic. Blood pressure was borderline on arrival at 100/65 and dropped to as low as 77/53 and remained marginal in the 80s over 50s. Patient received 2 L of normal saline while in the emergency department underwent CT scan of his abdomen and had routine labs checked including CBC, VBG, urinalysis, CMP, lipase, procalcitonin. CBC demonstrated leukocytosis of 18,800 and a mild anemia with hemoglobin 12.1 g. He had a left shift in his white cell count with neutrophil count of 16,300. CMP was remarkable for acute kidney injury with a BUN of 33 creatinine 1.9 and anion gap of 15.9. Glucose was 167. AST ALT alkaline phosphatase all within normal limits. Total bilirubin 0.6 and conjugated bilirubin 0.2. Lipase was normal at 215 and procalcitonin was 9.2. Urinalysis was cloudy with 30 mg/dL protein but negative for ketones moderate amount of blood with 10-20 red cells 5-10 white cells few epithelial cells moderate bacteria. Culture was sent off. CT imaging was abdomen chest and pelvis was performed with contrast. No pulmonary emboli were seen he has mild aortic atherosclerosis without aneurysm. Lungs showed mild dependent changes at the lung bases no pleural effusions. He has mild coronary artery calcifications at the LAD. No lymphadenopathy. CT of the abdomen showed mild atherosclerosis abdominal aorta without any aneurysm celiac trunk and mesenteric arteries showed no occlusion or stenosis. Renal arteries showed no occlusion or stenosis. No venous thrombosis was seen in the portal venous system. However the pancreas showed evidence of necrotizing pancreatitis with a heterogeneous surrounding fluid collection and well defined enhancing samano measuring 19.5 x 7.7 x 9.8 cm with surrounding fatty reticulation. Spleen was normal. Kidneys showed no hydronephrosis. Spine and pelvis show signs of ankylosing spondylitis. Patient is now admitted to the intensive care unit for medical treatment of necrotizing pancreatitis. In light of his elevated procalcitonin and leukocytosis and fever patient was started on broad-spectrum antibiotics with Zosyn after obtaining blood and urine cultures. Dr. Aniket Frank, emergency room attending, sent the CT scan studies to [facility] and discussed the case with general surgeon Dr. Monroe, who reviewed the case and images and advised that the patient does not require emergent surgical drainage but requires supportive medical care and if he did not improve then they would consider doing endoscopic drainage. Review of Systems Constitutional Constitutional: Reports body ache(s), Reports chills, Reports fatigue, Reports fever(s), Reports malaise and Reports weakness Eyes Eyes: Reports system reviewed and no additional complaints, except as documented ENT Ears, Nose, Mouth, and Throat: Reports system reviewed and no additional complaints, except as documented Cardiovascular Cardiovascular: Reports system reviewed and no additional complaints, except as documented, Denies chest pain and Denies dyspnea Respiratory Respiratory: Denies cough, Denies excessive phlegm production and Denies dyspnea Gastrointestinal Gastrointestinal: Reports as per HPI, Reports abdominal pain, Denies melena, Denies hematochezia, Reports nausea, Reports vomiting and Denies hematemesis Genitourinary Genitourinary: Reports system reviewed and no additional complaints, except as documented Musculoskeletal Musculoskeletal: Reports myalgias Integumentary/Breasts Skin/Breast: Reports system reviewed and no additional complaints, except as documented Neurologic Neurologic: Reports system reviewed and no additional complaints, except as documented and Reports weakness Psychiatric Psychiatric: Reports system reviewed and no additional complaints, except as documented Endocrine Endocrine: Reports system reviewed and no additional complaints, except as documented and Reports fatigue Hematologic/Lymphatic Hematologic/Lymphatic: Reports system reviewed and no additional complaints, except as documented Allergic/Immunologic Allergic/Immunologic: Reports system reviewed and no additional complaints, except as documented [facility] Medical History (Updated 04/19/21 @ 00:37 by Len Srivastava) Diabetes Diverticulosis 07/31 COLONOSCOPY: PANDIVERTICULOSIS 01/14/16-[facility] Essential hypertension (05/07/15) possible aldosteronism. See [facility] notes avoid diuretics Kidney stones 1999 Rotator cuff injury Left shoulder diffuse rotator cuff tear, repaired at [facility] 2009, some residual motion loss. 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 Surgical History H/O colonoscopy Previous back surgery Rotator Cuff Repair 2009 LEFT Family History Mother Hyperlipidemia Diabetes Father Diabetes Hypertension Brother No problems noted. Brother No problems noted. Son Depression Daughter No problems noted. Social History Smoking/Tobacco Use Status: Never Smoking risk assessment performed?: Yes Alcohol Intake: current Alcohol Intake frequency: holidays/special occasions only Substance use type: does not use Caregiver/Support person: No Household members: family Housing: house Communication Needs: None Pets and animals: Yes Pets and animals: cat(s) and dog(s) Sexually active: Yes Current gender identity: male What is your relationship status?: How often do you talk on the phone with friends or family?: three or more times per week How often do you get together with friends or relatives?: once per week How often do you attend hoahaoism or restoration services?: decline to answer Do you belong to any clubs or organized social groups?: no Panel score (0-1 are the most socially isolated patients): 1 What type of physical activity do you participate in: walking Duration: 15-30 minutes/day Cyndi/Mosque: Mormonism Special cyndi needs: No Seatbelt use: always Drive intox or ride w/intox spike driver: No Do you feel safe in your relationship?: Yes Meds Allergies and Home Medications Allergies Allergy/AdvReac Type Severity Reaction Status Date / Time No Known Allergies Allergy Verified 04/18/21 16:34 Home Medications Medication Instructions Recorded Confirmed Type Blood-Glucose Meter [Blood Glucose #1 ea 12/09/12/23/18 Clinic Monitor] metformin 500 mg tablet 1,000 mg PO DAILY tab 04/12/19 04/18/21 History ergocalciferol (vitamin D2) 1,250 1,250 mcg PO QWEEK #12 cap 08/24/19 04/18/21 Rx mcg (50,000 unit) capsule spironolactone 25 mg tablet 25 mg PO DAILY #90 tab-cap 07/05/20 04/18/21 Rx lisinopril 20 mg tablet 20 mg PO DAILY #90 tab-cap 10/16/20 04/18/21 Rx amlodipine 5 mg tablet 5 mg PO DAILY #90 tab-cap 01/27/21 04/18/21 Rx blood sugar diagnostic #100 strip 03/18/21 03/18/21 Rx lancets 28 gauge #100 ea 03/18/21 03/18/21 Rx Exam Narrative Exam Narrative: Middle-aged white male alert and oriented person place time circumstance appears to be in moderate discomfort. HEENT is unremarkable there is no icterus no jaundice. Neck is supple nontender no JVD normal carotid pulses no bruits no thyromegaly no cervical lymphadenopathy Lungs are clear to auscultation Heart regular rate and rhythm no murmur rub or gallop Abdomen is nondistended with active bowel sounds soft but diffusely tender with more pronounced tenderness in the epigastrium and left upper quadrant but no rebound tenderness. There are some voluntary guarding. Upper and lower extremities without peripheral edema or cyanosis he has normal pedal pulses. Neuro exam grossly intact no focal motor or sensory deficits. Results Labs Result diagrams: 04/18/21 16:50 04/18/21 16:50 Labs: Laboratory Results - last 24 hr 04/18/21 04/18/21 04/18/21 16:40 16:50 16:50 WBC 18.80 H RBC 3.94 L Hgb 12.1 L Hct 36.0 L MCV 91.4 MCH 30.7 MCHC 33.6 RDW 14.6 H Plt Count 120 L MPV 12.2 H Immature Gran % See Differential Neutrophils % 76.0 Band Neutrophils % 11 Lymphocytes % 2.0 Monocytes % 5.0 Eosinophils % 5.0 Basophils % 0.0 Metamyelocytes % 1 Nucleated RBC % 0 Absolute Neutrophils 16.36 H Absolute Lymphocytes 0.38 L Absolute Monocytes 0.94 H Absolute Eosinophils 0.94 H Absolute Basophils 0.00 RBC Morphology Normal VBG pH VBG pCO2 VBG pO2 VBG HCO3 VBG Total CO2 VBG O2 Saturation VBG Base Excess VBG Lactate Sodium 141 Potassium 3.7 Chloride 106 Carbon Dioxide 19.1 L Anion Gap 15.9 H BUN 33 H Creatinine 1.9 H Estimated GFR/1.73 m2 36.72 Glucose 167 H Calcium 8.2 L Magnesium 0.9 L Total Bilirubin 0.6 Conjugated Bilirubin 0.2 AST 12 L ALT 28 Alkaline Phosphatase 61 Total Protein 6.7 Albumin 3.4 Lipase 215 Procalcitonin Urine Color Urine Clarity Urine pH Ur Specific [place] Urine Protein Urine Ketones Urine Blood Urine Nitrite Urine Bilirubin Urine Urobilinogen Ur Leukocyte Esterase Urine RBC Urine WBC Ur Epithelial Cells Urine Crystals Urine Bacteria Urine Casts Urine Mucus Urine Other Ur Culture Indicated? Urine Glucose Ethyl Alcohol < 3.0 COVID-19 Source Nasal/Nares SARS-CoV-2 (PCR) Negative 04/18/21 04/18/21 04/18/21 16:50 16:50 20:15 WBC RBC Hgb Hct MCV MCH MCHC RDW Plt Count MPV Immature Gran % Neutrophils % Band Neutrophils % Lymphocytes % Monocytes % Eosinophils % Basophils % Metamyelocytes % Nucleated RBC % Absolute Neutrophils Absolute Lymphocytes Absolute Monocytes Absolute Eosinophils Absolute Basophils RBC Morphology VBG pH 7.43 H VBG pCO2 26 L VBG pO2 68 VBG HCO3 17 L VBG Total CO2 16 L VBG O2 Saturation 95 VBG Base Excess -7 L VBG Lactate 2.5 H* Sodium Potassium Chloride Carbon Dioxide Anion Gap BUN Creatinine Estimated GFR/1.73 m2 Glucose Calcium Magnesium Total Bilirubin Conjugated Bilirubin AST ALT Alkaline Phosphatase Total Protein Albumin Lipase Procalcitonin 9.2 Urine Color Yellow Urine Clarity Sl Cloudy Urine pH 5.5 Ur Specific [place] 1.010 Urine Protein 30 H Urine Ketones Negative Urine Blood Moderate H Urine Nitrite Negative Urine Bilirubin Negative Urine Urobilinogen 0.2 Ur Leukocyte Esterase Negative Urine RBC 10-20 H Urine WBC 5-10 Ur Epithelial Cells Few Urine Crystals Negative Urine Bacteria Moderate Urine Casts 0-2 Hyaline Urine Mucus Trace Urine Other Few Transitional Ur Culture Indicated? Yes Urine Glucose Negative Ethyl Alcohol COVID-19 Source SARS-CoV-2 (PCR) Last Vital Signs Temp 36.6 C 04/18/21 22:40 Pulse 112 H 04/18/21 22:40 Resp 22 04/18/21 22:40 BP 103/53 L 04/18/21 22:40 Pulse Ox 99 04/18/21 22:40
[2021-04-19] VITALS (45 sets, daily range): BP systolic 73–106; BP diastolic 32–71; PULSE 79–117; RESP 8–37; TEMP 35.6–37.8; O2SAT 90–98
[2021-04-19] MEDS: HYDROmorphone 2 MG/ML VIAL IVP ×7 (00:26→20:13)
[2021-04-19] MEDS: Normal Saline Flush 10 ML SYR IVP ×2 (00:27→16:01)
[2021-04-19] MEDS: Insulin Aspart 300 UNITS/3 ML PEN SC ×2 (00:49→16:17)
[2021-04-19] MEDS: Pantoprazole 40 MG VIAL IVP (02:15)
[2021-04-19] MEDS: Normal Saline 500 ML 30 ML IV (02:15)
[2021-04-19] MEDS: ACETAMINOPHEN 1,000 MG/100 ML BTL 400 MG IVPB ×2 (02:16→15:52)
[2021-04-19] MEDS: PIPERACILLIN/TAZO 3.375 GM in Normal Saline 50 ML IVPB (02:35)
[2021-04-19] MEDS: Lactated Ringers 1,000 ML 150 ML IV ×3 (04:02→19:59)
[2021-04-19] MEDS: Normal Saline 500 ML IV (05:10)
[2021-04-19 06:54] LABS: HCT 30.7 % (40.0-50.0); HGB 9.9 g/dL (13.5-17.5); MCH 30.9 pg (27.0-33.0); MCHC 32.2 % (32.0-36.0); MCV 95.9 fL (80-95); MPV 11.9 fL (8.0-11.0); Nucleated RBC 0 %; Platelet Count 81 10^3/uL (130-400); RDW-SD 53.2 fL; WBC 10.97 10^3/uL (4.4-10.8)
[2021-04-19 07:08] LABS: ALT 17 U/L (16-63); AST 9 U/L (15-37); Albumin 2.7 g/dL (3.4-5.0); Alkaline Phosphatase 54 U/L (46-116); Anion Gap 9.6 mmol/L (3-11); BUN 35 mg/dL (7-18); Bilirubin, Total 0.5 mg/dL (0.2-1.0); CO2 23.4 mmol/L (21.0-32.0); CREATININE 1.8 mg/dL (0.70-1.30); Calcium 7.7 mg/dL (8.5-10.1); Chloride 110 mmol/L (98-107); Estimated GFR 39.09 (mL/min/1.73m2); Glucose 102 mg/dL (74-106); Sodium 143 mmol/L (136-145); Total Protein 5.5 g/dL (6.4-8.2)
--- NOTE | 2021-04-19 07:20 | PDOC.CMIN ---
- If Service Date Differs Date of service: 04/19/21 Time of Service: 07:20 Care Management Initial Assess REASON FOR HOSPITALIZATION:: Necrotizing Pancreatitis PAST MEDICAL HISTORY/PAST SURGICAL HISTORY:: Medical History (Updated 04/19/21 @ 00:37 by Len Srivastava). Diabetes. Diverticulosis. 07/31 COLONOSCOPY: PANDIVERTICULOSIS. 01/14/16-[facility] [place]. Essential hypertension (05/07/15). possible aldosteronism. See [facility] notes. avoid diuretics. Kidney stones. 1999. Rotator cuff injury. Left shoulder diffuse rotator cuff tear, repaired at [facility] [place] 2009, some residual motion loss. 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 Tubular adenoma of colon. 08/28 COLONOSCOPY: TWO TUBULAR ADENOMAS & TWO HYPERPLASTIC POLYPS. Surgical History . H/O colonoscopy. Previous back surgery. Rotator Cuff Repair. 2009 LEFT PREVIOUS FUNCTIONAL STATUS/SOCIAL/FAMILY SUPPORTS:: lAan is and lives in [place] with his mother. He is independent at baseline and drives. He is his mothers caregiver and although she is independent with her ADL's, she relies on him for transportation. He shares that he has no family local to him other than his mother, and has a daughter who lives in [place]. CURRENT FUNCTIONAL STATUS:: Alan was lying in bed when CM met with him. He was A&O X3. He recently spent 15 days at [facility] and shares that 12 of those days he was in 9 out of 10 pain. He is hoping for effective pain control this admission. He currently denies pain. ADVANCE DIRECTIVES:: None on file at [facility] Has patient been provided with info about the portal/API?: Yes Did the patient sign up for the portal?: No CODE STATUS:: Full Code INSURANCE COVERAGE / FINANCIAL ISSUES:: Medicaid CURRENT HOME/COMMUNITY SERVICES/EQUIPMENT:: None PRIMARY CARE PHYSICIAN:: [facility] POTENTIAL DISCHARGE NEEDS:: [facility] , Follow up appointments PATIENT/FAMILY EDUCATION NEEDS:: Review discharge instructions and plans for out patient follow up, ask me three. TRANSPORTATION:: RCT vs private vehicle with a friend. PLAN:: Anticipate Alan will be discharged home with when medically cleared by provider. Needs for new [facility] SN is undetermined at this time. He will follow up with community providers and discharge plan of care as prescribed. He will transport via private vehicle with a friend vs. RCT (arranged by CM). CM continues to follow.
[2021-04-19 07:23] LABS: Absolute Lymphocyte Count 0.44 10^3/uL (1.2-3.4); Absolute Monocyte Count 0.11 10^3/uL (0.1-0.8); Absolute Neutrophil Count 10.42 10^3/uL (1.2-6.7); Bands % 3; C-Reactive Protein > 25.00 mg/dL (0.0-0.3); Diff Comment Manual Differential
[2021-04-19 07:24] LABS: RBC Morphology Normal
--- NOTE | 2021-04-19 11:07 | PGE_ITS ---
Date of Service Date of service: 04/19/21 Time of Service: 11:08 Assessment and Plan Assessment and plan (1) Sepsis: Status: Acute Assessment and plan: Sepsis secondary to necrotizing pancreatitis. Continue supportive care with IV fluids and parenteral antibiotics including Zosyn. So far patient has not required vasopressors to maintain his MAP over 65 mm Qualifiers: Sepsis type: sepsis due to unspecified organism Sepsis acute organ dysfunction status: with acute organ dysfunction Severe sepsis acute organ dysfunction type: acute renal failure Acute renal failure type: with acute tubular necrosis Severe sepsis shock status: without septic shock Qualified Code(s): A41.9 - Sepsis, unspecified organism; R65.20 - Severe sepsis without septic shock; N17.0 - Acute kidney failure with tubular necrosis (2) Necrotizing pancreatitis: Status: Acute Assessment and plan: Necrotizing pancreatitis with walled off necrosis measuring 19.5 cm x 7.7 cm x 9.8 cm. Blood cultures are pending at this time. Continue Zosyn, antiemetics, narcotic analgesics, IV fluids. Trial of clear liquids as tolerated. I will discuss surgical management for endoscopic drainage of his pancreatic phlegmon with [facility] surgeon. For now medical management. (3) Acute kidney injury (nontraumatic): Status: Acute Assessment and plan: Acute kidney injury secondary to necrotizing pancreatitis and sepsis. Patient is maintaining good renal output. BUN/creatinine remain unchanged. Continue IV fluid hydration and treatment of his underlying sepsis. (4) Fever: Status: Acute Assessment and plan: Blood and urine cultures have been sent off. Will continue Zosyn at renally adjusted doses. No further fever spikes since last night. WBCs down to 10,900. Blood cultures are pending. Qualifiers: Fever type: unspecified Qualified Code(s): R50.9 - Fever, unspecified (5) Diabetes: Status: Chronic Assessment and plan: Metformin is on hold at this time. Will monitor his blood sugars every 4 hours and give him NovoLog per insulin sensitive sliding scale. Qualifiers: Diabetes mellitus type: type 2 Diabetes mellitus retirement insulin use: without retirement use Diabetes mellitus complication status: without complication Qualified Code(s): E11.9 - Type 2 diabetes mellitus without complications Subjective Subjective Interval history since last seen: No nausea or vomiting this morning. Abdominal pain seems to be controlled with parenteral narcotics. Patient's been tolerating ice chips. White cell count is down to 10,970. Hemoglobin is dropped slightly to 9.9 g probably secondary to dilution. Platelet count however also is dropped to 81,000. BUN and creatinine remain elevated at 35 and 1.8. Calcium is dropped to 7.7. CRP is elevated greater than 25 transaminases are normal. I have put a call out to Dr. Monroe, general surgeon from [facility], to discuss the patient's case regarding his infected pancreatic phlegmon. For now we will continue parenteral antibiotics with Zosyn. Blood cultures are pending at this time. I will advance the diet to clear liquids. Exam Narrative Exam Narrative: Middle-aged white male lying in bed watching TV alert oriented person place time circumstance. Lungs are clear to auscultation Heart regular rate and rhythm Abdomen with normal bowel sounds, patient reportedly passing flatus, abdomen is nondistended soft with mild tenderness with palpation but no rebound tenderness. Extremities without peripheral cyanosis or edema Objective Last Vital Signs Temp 37.4 C 04/19/21 07:30 Pulse 117 H 04/19/21 07:30 Resp 17 04/19/21 07:30 BP 90/37 L 04/19/21 07:30 Pulse Ox 95 04/19/21 07:30 Laboratory Results - last 24 hr 04/18/21 04/18/21 04/18/21 16:40 16:50 16:50 WBC 18.80 H RBC 3.94 L Hgb 12.1 L Hct 36.0 L MCV 91.4 MCH 30.7 MCHC 33.6 RDW 14.6 H Plt Count 120 L MPV 12.2 H Immature Gran % See Differential Neutrophils % 76.0 Band Neutrophils % 11 Lymphocytes % 2.0 Monocytes % 5.0 Eosinophils % 5.0 Basophils % 0.0 Metamyelocytes % 1 Nucleated RBC % 0 Absolute Neutrophils 16.36 H Absolute Lymphocytes 0.38 L Absolute Monocytes 0.94 H Absolute Eosinophils 0.94 H Absolute Basophils 0.00 RBC Morphology Normal VBG pH VBG pCO2 VBG pO2 VBG HCO3 VBG Total CO2 VBG O2 Saturation VBG Base Excess VBG Lactate Sodium 141 Potassium 3.7 Chloride 106 Carbon Dioxide 19.1 L Anion Gap 15.9 H BUN 33 H Creatinine 1.9 H Estimated GFR/1.73 m2 36.72 Glucose 167 H Calcium 8.2 L Magnesium 0.9 L Total Bilirubin 0.6 Conjugated Bilirubin 0.2 AST 12 L ALT 28 Alkaline Phosphatase 61 C-Reactive Protein Total Protein 6.7 Albumin 3.4 Lipase 215 Procalcitonin Urine Color Urine Clarity Urine pH Ur Specific Yoder Urine Protein Urine Ketones Urine Blood Urine Nitrite Urine Bilirubin Urine Urobilinogen Ur Leukocyte Esterase Urine RBC Urine WBC Ur Epithelial Cells Urine Crystals Urine Bacteria Urine Casts Urine Mucus Urine Other Ur Culture Indicated? Urine Glucose Ethyl Alcohol < 3.0 COVID-19 Source Nasal/Nares SARS-CoV-2 (PCR) Negative 04/18/21 04/18/21 04/18/21 16:50 16:50 20:15 WBC RBC Hgb Hct MCV MCH MCHC RDW Plt Count MPV Immature Gran % Neutrophils % Band Neutrophils % Lymphocytes % Monocytes % Eosinophils % Basophils % Metamyelocytes % Nucleated RBC % Absolute Neutrophils Absolute Lymphocytes Absolute Monocytes Absolute Eosinophils Absolute Basophils RBC Morphology VBG pH 7.43 H VBG pCO2 26 L VBG pO2 68 VBG HCO3 17 L VBG Total CO2 16 L VBG O2 Saturation 95 VBG Base Excess -7 L VBG Lactate 2.5 H* Sodium Potassium Chloride Carbon Dioxide Anion Gap BUN Creatinine Estimated GFR/1.73 m2 Glucose Calcium Magnesium Total Bilirubin Conjugated Bilirubin AST ALT Alkaline Phosphatase C-Reactive Protein Total Protein Albumin Lipase Procalcitonin 9.2 Urine Color Yellow Urine Clarity Sl Cloudy Urine pH 5.5 Ur Specific Yoder 1.010 Urine Protein 30 H Urine Ketones Negative Urine Blood Moderate H Urine Nitrite Negative Urine Bilirubin Negative Urine Urobilinogen 0.2 Ur Leukocyte Esterase Negative Urine RBC 10-20 H Urine WBC 5-10 Ur Epithelial Cells Few Urine Crystals Negative Urine Bacteria Moderate Urine Casts 0-2 Hyaline Urine Mucus Trace Urine Other Few Transitional Ur Culture Indicated? Yes Urine Glucose Negative Ethyl Alcohol COVID-19 Source SARS-CoV-2 (PCR) 04/19/21 04/19/21 06:25 06:25 WBC 10.97 H D RBC 3.20 L Hgb 9.9 L D Hct 30.7 L MCV 95.9 H D MCH 30.9 MCHC 32.2 RDW 15.0 H Plt Count 81 L MPV 11.9 H Immature Gran % 0.0 Neutrophils % 92.0 Band Neutrophils % 3 Lymphocytes % 4.0 Monocytes % 1.0 Eosinophils % 0.0 Basophils % 0.0 Metamyelocytes % Nucleated RBC % 0 Absolute Neutrophils 10.42 H Absolute Lymphocytes 0.44 L Absolute Monocytes 0.11 Absolute Eosinophils 0.00 Absolute Basophils 0.00 RBC Morphology Normal VBG pH VBG pCO2 VBG pO2 VBG HCO3 VBG Total CO2 VBG O2 Saturation VBG Base Excess VBG Lactate Sodium 143 Potassium 4.0 Chloride 110 H Carbon Dioxide 23.4 Anion Gap 9.6 BUN 35 H Creatinine 1.8 H Estimated GFR/1.73 m2 39.09 Glucose 102 D Calcium 7.7 L Magnesium Total Bilirubin 0.5 Conjugated Bilirubin AST 9 L ALT 17 Alkaline Phosphatase 54 C-Reactive Protein > 25.00 H Total Protein 5.5 L Albumin 2.7 L Lipase Procalcitonin Urine Color Urine Clarity Urine pH Ur Specific Yoder Urine Protein Urine Ketones Urine Blood Urine Nitrite Urine Bilirubin Urine Urobilinogen Ur Leukocyte Esterase Urine RBC Urine WBC Ur Epithelial Cells Urine Crystals Urine Bacteria Urine Casts Urine Mucus Urine Other Ur Culture Indicated? Urine Glucose Ethyl Alcohol COVID-19 Source SARS-CoV-2 (PCR)
[2021-04-19 11:42] LABS: Magnesium 1.6 mg/dL (1.8-2.4)
[2021-04-19 12:02] LABS: LDH 109 U/L (85-227)
[2021-04-19 12:14] LABS: Lactate 1.6 mmol/L (0.6-1.4)
[2021-04-19] MEDS: MAGNESIUM SULFATE 2 GM/50 ML BAG IVPB (12:24)
[2021-04-19] MEDS: Ondansetron 4 MG/2 ML VIAL IVP (16:01)
[2021-04-19] MEDS: diphenhydrAMINE 25 MG CAP PO (20:12)
[2021-04-20] VITALS (21 sets, daily range): BP systolic 113–127; BP diastolic 67–82; PULSE 86–106; RESP 12–22; TEMP 36.1–37.8; O2SAT 93–100
[2021-04-20] MEDS: Lactated Ringers 1,000 ML 150 ML IV ×2 (00:10→06:16)
[2021-04-20] MEDS: HYDROmorphone 2 MG/ML VIAL IVP ×6 (00:39→23:06)
[2021-04-20] MEDS: Normal Saline Flush 10 ML SYR IVP ×5 (00:40→23:07)
[2021-04-20] MEDS: Pantoprazole 40 MG VIAL IVP (02:12)
[2021-04-20] MEDS: diphenhydrAMINE 25 MG CAP PO ×2 (02:15→23:07)
[2021-04-20 07:06] LABS: HCT 31.8 % (40.0-50.0); HGB 10.1 g/dL (13.5-17.5); MCH 31.1 pg (27.0-33.0); MCHC 31.8 % (32.0-36.0); MCV 97.8 fL (80-95); MPV 13.4 fL (8.0-11.0); Nucleated RBC 0 %; Platelet Count 90 10^3/uL (130-400); RBC 3.25 10^6/uL (4.36-5.78); RDW 15.1 % (11.8-14.1); RDW-SD 54.5 fL; WBC 9.49 10^3/uL (4.4-10.8)
[2021-04-20 07:24] LABS: ALT 20 U/L (16-63); AST 11 U/L (15-37); Albumin 2.7 g/dL (3.4-5.0); Alkaline Phosphatase 56 U/L (46-116); Anion Gap 10.3 mmol/L (3-11); BUN 34 mg/dL (7-18); Bilirubin, Total 0.6 mg/dL (0.2-1.0); CO2 24.7 mmol/L (21.0-32.0); CREATININE 1.3 mg/dL (0.70-1.30); Calcium 8.3 mg/dL (8.5-10.1); Chloride 106 mmol/L (98-107); Glucose 96 mg/dL (74-106); Magnesium 1.8 mg/dL (1.8-2.4); Potassium 3.6 mmol/L (3.5-5.1); Sodium 141 mmol/L (136-145)
[2021-04-20 07:41] LABS: Absolute Basophil Count 0.09 10^3/uL (0.0-0.2); Absolute Eosinophil Count 0.09 10^3/uL (0.0-0.7); Absolute Lymphocyte Count 0.66 10^3/uL (1.2-3.4); Absolute Monocyte Count 0.28 10^3/uL (0.1-0.8); Absolute Neutrophil Count 8.35 10^3/uL (1.2-6.7); Bands % 5; Diff Comment Manual Differential; Poikilocytes 1+
--- NOTE | 2021-04-20 08:57 | PHA.REVIEW ---
Pharmacy Admission Review - Admission Clinical Review (Last Updated 04/19/21 @ 00:31 by Len Srivastava) Sepsis (Acute) Acute kidney injury (nontraumatic) (Acute) Necrotizing pancreatitis (Acute) Fever (Acute) No Known Allergies Allergy (Verified 04/18/21 16:34) Resuscitation Status Full Code Height 5 ft 10 in Weight 92.3 kg - Renal Dosing Renal Dosing: BUN 34 mg/dL (7-18) H 04/20/21 06:30 Creatinine 1.3 mg/dL (0.70-1.30) D 04/20/21 06:30 Medications needing adjustments: Reviewed (CRCL~64ML/MIN) - Anticoagulation Anticoagulation: Hgb 10.1 g/dL (13.5-17.5) L 04/20/21 06:30 Hct 31.8 % (40.0-50.0) L 04/20/21 06:30 Plt Count 90 10^3/uL (130-400) L 04/20/21 06:30 Creatinine 1.3 mg/dL (0.70-1.30) D 04/20/21 06:30 DVT Prophylaxis: N/A (possible surgical candidate . will ask provider if appropriate) Therapeutic Anticoagulation: N/A - Relevant Labs Sodium 141 mmol/L (136-145) 04/20/21 06:30 Potassium 3.6 mmol/L (3.5-5.1) 04/20/21 06:30 Chloride 106 mmol/L (98-107) 04/20/21 06:30 Magnesium 1.8 mg/dL (1.8-2.4) 04/20/21 06:30 C-Reactive Protein > 25.00 mg/dL (0.0-0.3) H 04/19/21 06:25 - DM Control DM Control: Glucose 96 mg/dL (74-106) 04/20/21 06:30 Finger Stick Blood Glucose 83 Finger Stick Blood Glucose 83 Insulin Dosing: Reviewed - BP Control BP Control: Blood Pressure 127/67 Blood Pressure 113/71 Blood Pressure 122/73 Blood Pressure 122/82 If elevated: N/A - Qtc Review If Elevated: N/A - IV to PO Switch IV Medications: Reviewed (all meds IV) - Home Meds Home Med List reviewed: Reviewed (not ordered: lisinopril, spironolactone, metformin, amlodipine) - Current meds Current Medication Order Review: Reviewed - Comments Comments/Follow Ups: medical mgt for pancreatic phlegmon. will have drained by [facility] [place] [place]. UC and BC show no growth to date
--- NOTE | 2021-04-20 09:16 | W.PM.PROGNOT ---
Date of Service Date of service: 04/20/21 Time of Service: 09:16 Assessment and Plan Assessment and plan (1) Sepsis: Status: Acute Assessment and plan: He is no longer exhibiting septic physiology and his inflammatory markers have improved. He is hemodynamically stable and can be moved out of ICU to med/surg. He still needs parenteral antibiotics for his necrotizing pancreatitis. I will keep him on clear liquids for now rather than advance his diet. I will speak w/ Dr. Shah or his colleagues tomorrow about arranging a [place] and [place] [facility] [place] of his pancreatic necrotic fluid collection. Qualifiers: Sepsis type: sepsis due to unspecified organism Sepsis acute organ dysfunction status: with acute organ dysfunction Severe sepsis acute organ dysfunction type: acute renal failure Acute renal failure type: with acute tubular necrosis Severe sepsis shock status: without septic shock Qualified Code(s): A41.9 - Sepsis, unspecified organism; R65.20 - Severe sepsis without septic shock; N17.0 - Acute kidney failure with tubular necrosis (2) Necrotizing pancreatitis: Status: Acute Assessment and plan: as above. (3) Acute kidney injury (nontraumatic): Status: Acute Assessment and plan: resolved. creatinine now down to 1.3. He is making good urine output, 2200 mL yesterday. He will remain on iv fluids but I have reduced the rate to avoid volume overload. (4) Fever: Status: Acute Assessment and plan: blood and urine cultures have shown no growth. His source is likely the necrotizing pancreatitis. Qualifiers: Fever type: unspecified Qualified Code(s): R50.9 - Fever, unspecified (5) Diabetes: Status: Chronic Assessment and plan: Metformin is on hold at this time. Finger stick blood sugars controlled. 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 Some nausea but no vomiting. No BM but flatus. I told him that I spoke w/ Dr. Shah, [place] [facility] yesterday and the plan is for the patient to be sent [place] [facility] [place] this [place] for endoscopic drainage of his pancreatic fluid collection. It is suspected that this is the source of his infection. He seems to be responding to the Zosyn he is on. His WBC has normalized and his REJI has resolved. He is hemodynamically stable and I think that he is ready for transfer out of the ICU. Exam Narrative Exam Narrative: Middle age white male, alert and oriented x 3, Lungs: basilar rales, that clears w/ cough and deep breathing; no rhonchi or wheezes Heart: regular but tachycardic Abdomen: bowel sounds present, soft, mild epigastric tenderness Extremities: no edema Objective Last Vital Signs Temp 36.1 C L 04/20/21 03:22 Pulse 96 H 04/20/21 06:01 Resp 17 04/20/21 06:01 BP 127/67 04/20/21 06:01 Pulse Ox 97 04/20/21 04:08 Laboratory Results - last 24 hr 04/19/21 04/19/21 04/20/21 06:25 12:08 06:30 WBC RBC Hgb Hct MCV MCH MCHC RDW Plt Count MPV Immature Gran % Neutrophils % Band Neutrophils % Lymphocytes % Monocytes % Eosinophils % Basophils % Nucleated RBC % Absolute Neutrophils Absolute Lymphocytes Absolute Monocytes Absolute Eosinophils Absolute Basophils RBC Morphology Poikilocytosis VBG Lactate 1.6 H Sodium 143 141 Potassium 4.0 3.6 Chloride 110 H 106 Carbon Dioxide 23.4 24.7 Anion Gap 9.6 10.3 BUN 35 H 34 H Creatinine 1.8 H 1.3 D Estimated GFR/1.73 m2 39.09 56.90 Glucose 102 D 96 Calcium 7.7 L 8.3 L Magnesium 1.6 L 1.8 Total Bilirubin 0.5 0.6 AST 9 L 11 L ALT 17 20 Alkaline Phosphatase 54 56 Lactate Dehydrogenase 109 C-Reactive Protein > 25.00 H Total Protein 5.5 L 6.0 L Albumin 2.7 L 2.7 L 04/20/21 06:30 WBC 9.49 RBC 3.25 L Hgb 10.1 L Hct 31.8 L MCV 97.8 H MCH 31.1 MCHC 31.8 L RDW 15.1 H Plt Count 90 L MPV 13.4 H Immature Gran % 0.0 Neutrophils % 83.0 Band Neutrophils % 5 Lymphocytes % 7.0 Monocytes % 3.0 Eosinophils % 1.0 Basophils % 1.0 Nucleated RBC % 0 Absolute Neutrophils 8.35 H Absolute Lymphocytes 0.66 L Absolute Monocytes 0.28 Absolute Eosinophils 0.09 Absolute Basophils 0.09 RBC Morphology See Below Poikilocytosis 1+ VBG Lactate Sodium Potassium Chloride Carbon Dioxide Anion Gap BUN Creatinine Estimated GFR/1.73 m2 Glucose Calcium Magnesium Total Bilirubin AST ALT Alkaline Phosphatase Lactate Dehydrogenase C-Reactive Protein Total Protein Albumin
[2021-04-20] MEDS: ACETAMINOPHEN 1,000 MG/100 ML BTL 400 MG IVPB (09:20)
[2021-04-20 09:48] LABS: Lactate 0.9 mmol/L (0.6-1.4)
[2021-04-20 10:13] LABS: Prothrombin Time 10.3 sec (9.3-11.0)
[2021-04-20 10:16] LABS: PTT Activated 25.3 sec (21.0-27.5)
[2021-04-20 10:20] LABS: D-Dimer 6263 ng/mlFEU (<500)
[2021-04-20] MEDS: PIPERACILLIN/TAZO 3.375 GM in Normal Saline 50 ML IV ×2 (14:36→21:08)
[2021-04-20] MEDS: Normal Saline 500 ML 100 ML IV (14:36)
--- NOTE | 2021-04-20 15:11 | NUR.NOTE ---
Nursing Note: At 1350 on 04/20/21, this RN received report on the pt. from the DYNAMICIST. At 1400 on 04/20/21, the pt. was transferred from the ICU to Med/Surg per MD order. Pt. was settled in and oriented to room 231. VS obtained; VSS; see VS flowsheet for more information. Head to toe assessment performed; see shift assessment flowsheet for more information. RN will reassess as necessary.
[2021-04-21] VITALS (8 sets, daily range): BP systolic 118–139; BP diastolic 70–80; PULSE 95–105; RESP 12–18; TEMP 36.9–38.6; O2SAT 93–95
[2021-04-21] MEDS: Pantoprazole 40 MG VIAL IVP (02:07)
[2021-04-21] MEDS: Normal Saline Flush 10 ML SYR IVP ×10 (02:08→22:44)
[2021-04-21] MEDS: HYDROmorphone 2 MG/ML VIAL IVP ×10 (05:10→22:43)
[2021-04-21] MEDS: PIPERACILLIN/TAZO 3.375 GM in Normal Saline 50 ML IV ×3 (05:11→21:27)
[2021-04-21 07:00] LABS: Abs Immature Grans 0.04 10^3/uL (0.0-0.06); Absolute Basophil Count 0.02 10^3/uL (0.0-0.2); Absolute Lymphocyte Count 0.57 10^3/uL (1.2-3.4); Absolute Monocyte Count 0.74 10^3/uL (0.1-0.8); Absolute Neutrophil Count 3.98 10^3/uL (1.2-6.7); Basophils % 0.4; Eosinophils % 1.8; HCT 26.4 % (40.0-50.0); HGB 8.5 g/dL (13.5-17.5); Immature Grans % 0.7; Lymphocytes % 10.5; MCH 30.9 pg (27.0-33.0); MCHC 32.2 % (32.0-36.0); MPV 12.3 fL (8.0-11.0); Monocytes % 13.6; Nucleated RBC 0 %; RBC 2.75 10^6/uL (4.36-5.78); RDW 14.8 % (11.8-14.1); RDW-SD 51.7 fL; WBC 5.45 10^3/uL (4.4-10.8)
[2021-04-21 07:25] LABS: Diff Comment Diff Reviewed; Platelet Count 85 10^3/uL (130-400)
[2021-04-21 07:26] LABS: Hypochromasia 2+; Polychromasia Present
[2021-04-21 07:46] LABS: ALT 13 U/L (16-63); AST 11 U/L (15-37); Albumin 2.2 g/dL (3.4-5.0); Alkaline Phosphatase 48 U/L (46-116); Anion Gap 7.8 mmol/L (3-11); BUN 17 mg/dL (7-18); Bilirubin, Total 0.7 mg/dL (0.2-1.0); C-Reactive Protein 21.82 mg/dL (0.0-0.3); CO2 25.2 mmol/L (21.0-32.0); Calcium 7.9 mg/dL (8.5-10.1); Chloride 109 mmol/L (98-107); Glucose 117 mg/dL (74-106); Potassium 3.7 mmol/L (3.5-5.1); Sodium 142 mmol/L (136-145); Total Protein 5.1 g/dL (6.4-8.2)
[2021-04-21 07:48] LABS: Procalcitonin 2.7 ng/mL
--- NOTE | 2021-04-21 09:24 | CMPROGNOTE_ITS ---
- If Service Date Differs Date of service: 04/21/21 Time of Service: 09:24 Care Management Progress Note S/O: Alan was laying in bed when CM met with him. He reports occasional sharp pain with positional changes, otherwise he denies pain. He is aware that Dr. Srivastava has been talking with [facility] [place] [facility] about the possibility of a down and back to [facility] [place] [facility] for a drainage procedure. Alan will discuss the details in greater depth with the provider. Pancho has no needs at this time. A: 56 year old male admitted to [facility] on 04/19/21 for Necrotizing Pancreatitis P: Alan may require a down and back to [facility] [facility] for a drainage procedure. For this he will transport via EMS. Dr. Srivastava continues to communicate with [facility] about the logistic of the procedure. CM will continue to follow. Anticipate Alan will be discharged home when medically cleared by provider via private vehicle with a friend vs. RCT. Need for new [facility] SN/PT is undetermined at this time. He will follow up with community providers and discharge plan of care as prescribed.
--- NOTE | 2021-04-21 16:27 | PGE_ITS ---
Date of Service Date of service: 04/21/21 Time of Service: 16:27 Assessment and Plan Assessment and plan (1) Necrotizing pancreatitis: Status: Acute Assessment and plan: cont. Mildredsyn, plan for down and back to [facility] tomorrow for endoscopic ultrasound guided drainage of his pancreatic fluid collection. (2) Acute kidney injury (nontraumatic): Status: Resolved Assessment and plan: resolved. creatinine now down to 1.0. He is making good urine output, 2200 mL yesterday. He will remain on iv fluids but I have reduced the rate to avoid volume overload. (3) Fever: Status: Resolved Assessment and plan: blood and urine cultures have shown no growth. His source is likely the necrotizing pancreatitis. Qualifiers: Fever type: unspecified Qualified Code(s): R50.9 - Fever, unspecified (4) Diabetes: Status: Chronic Assessment and plan: Metformin is on hold at this time. Finger stick blood sugars controlled. 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 Patient w/ no nausea or vomiting. Still w/ moderate abdominal pains that are controlled w/ parenteral narcotics. I discussed w/ Alan my conversation this morning w/ [facility] services and their plans for Alan to go to [facility] tomorrow for endoscopic ultrasound guided drainage of his pancreatic abscess. Exam Narrative Exam Narrative: Middle age white male, alert and oriented x 3, Lungs: clear Heart: regular but tachycardic Abdomen: bowel sounds present, soft, mild epigastric tenderness Extremities: no edema Objective Last Vital Signs Temp 36.9 C 04/21/21 15:15 Pulse 97 H 04/21/21 15:15 Resp 18 04/21/21 15:15 BP 118/70 04/21/21 15:15 Pulse Ox 93 04/21/21 15:15 Laboratory Results - last 24 hr 04/21/21 04/21/21 04/21/21 06:41 06:41 06:41 WBC 5.45 D RBC 2.75 L Hgb 8.5 L Hct 26.4 L MCV 96.0 H MCH 30.9 MCHC 32.2 RDW 14.8 H Plt Count 85 L MPV 12.3 H Immature Gran % 0.7 Neutrophils % 73.0 Lymphocytes % 10.5 Monocytes % 13.6 Eosinophils % 1.8 Basophils % 0.4 Nucleated RBC % 0 Absolute Neutrophils 3.98 Absolute Lymphocytes 0.57 L Absolute Monocytes 0.74 Absolute Eosinophils 0.10 Absolute Basophils 0.02 RBC Morphology See Below Polychromasia Present Hypochromasia 2+ Sodium 142 Potassium 3.7 Chloride 109 H Carbon Dioxide 25.2 Anion Gap 7.8 BUN 17 D Creatinine 1.0 Estimated GFR/1.73 m2 >= 60.00 Glucose 117 H Calcium 7.9 L Total Bilirubin 0.7 AST 11 L ALT 13 L Alkaline Phosphatase 48 C-Reactive Protein 21.82 H Total Protein 5.1 L Albumin 2.2 L Procalcitonin 2.7
[2021-04-21] MEDS: ACETAMINOPHEN 1,000 MG/100 ML BTL 400 MG IVPB (23:48)
[2021-04-22] VITALS (9 sets, daily range): BP systolic 119–149; BP diastolic 72–85; PULSE 77–103; RESP 16–18; TEMP 35.4–37.8; O2SAT 96–98
[2021-04-22] MEDS: HYDROmorphone 2 MG/ML VIAL IVP ×8 (00:05→22:43)
[2021-04-22] MEDS: Normal Saline Flush 10 ML SYR IVP ×8 (00:06→22:12)
[2021-04-22] MEDS: Pantoprazole 40 MG VIAL IVP (01:39)
[2021-04-22] MEDS: PIPERACILLIN/TAZO 3.375 GM in Normal Saline 50 ML IV ×2 (05:20→22:12)
--- NOTE | 2021-04-22 08:48 | W.PM.PROGNOT ---
Date of Service Date of service: 04/22/21 Time of Service: 08:48 Assessment and Plan Assessment and plan (1) Necrotizing pancreatitis: Status: Acute Assessment and plan: cont. zosyn for now pending endoscopic US guided fluid drainage. check repeat blood cultures and inflammatory markers. (2) Acute kidney injury (nontraumatic): Status: Resolved Assessment and plan: resolved. continue iv fluid hydration until able to take adequate po intake (3) Anemia: Status: Chronic Assessment and plan: anemia from acute illness; no evidence of bleeding and patient has not been on any anticoagulants. will repeat his labs this morning and type and screen him. check stool for occult blood however he has not been having any BMP since he has been on clear liquids. Qualifiers: Anemia type: unspecified type Qualified Code(s): D64.9 - Anemia, unspecified (4) Fever: Status: Resolved Assessment and plan: initial blood and urine cultures from admission showed no growth. He has been on Zosyn for what appears to be infected necrotic pancreatitis. repeat blood cultures from last night is pending. cont. Zosyn for now. Qualifiers: Fever type: unspecified Qualified Code(s): R50.9 - Fever, unspecified (5) Diabetes: Status: Chronic Assessment and plan: Metformin is on hold at this time. Finger stick blood sugars controlled. continue monitoring but change to AC/HS and cover w/ SSI low dose Novolog Qualifiers: Diabetes mellitus type: type 2 Diabetes mellitus emt intermediate insulin use: without emt intermediate use Diabetes mellitus complication status: without complication Qualified Code(s): E11.9 - Type 2 diabetes mellitus without complications Subjective Subjective Interval history since last seen: patient had fever of 38.6 last night. Blood cultures were drawn. he is afebrile now. he is NPO for down and back procedure at [facility] for endoscopic ultrasound guided drainage of necrotic pancreatic fluid collection. Initial blood cultures were no growth. He has been on Zosyn since admission on 04/18. Given his new fevers, it is appropriate that new blood cultures were obtained. Hopefully they will get pancreatic fluid cultures when he has his drainage procedure. He may need a change to Imipenem or Meropenem. Routine labs were not done. I have ordered stat CBC, CMP, CRP and procalcitonin (which had been elevated at 9.2 on admission and had come down to 2.7 yesterday. Exam Narrative Exam Narrative: Patient had a lot of questions related to his necrotic pancreatitis. He asked about whether or not they would remove the tisue. I explained to him that they do not surgically remove the tissue and only in extreme cases would a pancreatectomy be required but at present he just needs a drainage procedure to remove the infected fluid Abdomen: soft, no guarding or rebound tenderness; patient has been passing flatus but no BM; bowel sounds normal Lungs: clear Heart: RRR Objective Last Vital Signs Temp 36.2 C L 04/22/21 07:43 Pulse 86 04/22/21 07:43 Resp 18 04/22/21 07:43 BP 149/85 H 04/22/21 07:43 Pulse Ox 98 04/22/21 07:43
--- NOTE | 2021-04-22 08:49 | NUR.NOTE ---
Nursing Note: At 0842 on 04/22/21, this RN answered a call from VITOR Keanrs at [facility]. This RN gave report on the pt. to VITOR Kearns, regarding pt.'s mentation, VS, FS, pain level and medications administered, head to toe assessment, etc. VITOR Kearns states that she will call and give report to this RN once the pt. is finished with his esophageal ultrasound and is on his way back to [facility]. RN will reassess as necessary.
[2021-04-22 09:29] LABS: Abs Immature Grans 0.07 10^3/uL (0.0-0.06); Absolute Basophil Count 0.03 10^3/uL (0.0-0.2); Absolute Eosinophil Count 0.13 10^3/uL (0.0-0.7); Absolute Lymphocyte Count 0.41 10^3/uL (1.2-3.4); Absolute Monocyte Count 0.73 10^3/uL (0.1-0.8); Absolute Neutrophil Count 4.06 10^3/uL (1.2-6.7); Basophils % 0.6; Eosinophils % 2.4; HCT 31.6 % (40.0-50.0); HGB 10.2 g/dL (13.5-17.5); Immature Grans % 1.3; Lymphocytes % 7.6; MCH 31.3 pg (27.0-33.0); MCHC 32.3 % (32.0-36.0); MCV 96.9 fL (80-95); MPV 12.2 fL (8.0-11.0); Monocytes % 13.4; Neutrophils % 74.7; Nucleated RBC 0 %; Platelet Count 108 10^3/uL (130-400); RBC 3.26 10^6/uL (4.36-5.78); RDW 14.4 % (11.8-14.1); RDW-SD 51.6 fL; WBC 5.43 10^3/uL (4.4-10.8)
[2021-04-22 09:41] LABS: C-Reactive Protein 24.77 mg/dL (0.0-0.3)
[2021-04-22 09:42] LABS: ALT 17 U/L (16-63); AST 13 U/L (15-37); Albumin 2.5 g/dL (3.4-5.0); Alkaline Phosphatase 59 U/L (46-116); Anion Gap 6.8 mmol/L (3-11); BUN 10 mg/dL (7-18); Bilirubin, Total 0.7 mg/dL (0.2-1.0); CO2 29.2 mmol/L (21.0-32.0); CREATININE 0.9 mg/dL (0.70-1.30); Calcium 8.3 mg/dL (8.5-10.1); Chloride 107 mmol/L (98-107); Glucose 117 mg/dL (74-106); Potassium 3.4 mmol/L (3.5-5.1); Sodium 143 mmol/L (136-145); Total Protein 6.1 g/dL (6.4-8.2)
--- NOTE | 2021-04-22 13:06 | TELEFU_ITS ---
Date of service: 04/22/21 Time of Service: 13:06 Nutrition Note NOTE: Unable to speak with pt today as he is down at [facility] for fluid drainage. 56yo male admitted with sepsis, acute renal failure, necrotizing pancreatitis with PMH significant for DMII, diverticulosis, HTN, and s/p cholecystectomy < a month ago. Meds: diphenhydramine, hydromorphone, sensitive insulin aspart protocol, pantoprazole, zosym, vitamin D2, amlodipine and KCl. Pt with limited intake x4 days with clear liquids or npo status. Current BMI c/w stage I obesity. Recent A1C 6.0% on 03/18/21 c/w good glycemic control. Noted 11% change in weight in <3 months (unsure what % may be dry weight loss). Estimated nutrition needs: 2145kcals (REEx1.2), 60-75g protein (.8-1g/kg IBW), 2145mL fluid as tolerated (1mL/kg). Diagnosis: Stage 3 obsesity AEB current BMI >40. Inadequate energy intake r/t critical illness AEB 11% change in body weight over 3 months. Intervention: Will meet with pt once he returns to discuss his weight history and consider adding nutrition supplementation or making more aggressive MNT rec ommendations at that time (depending on diet order status). ? if Pancreatic Enzyme Replacement Therapy would be indicated. Monitoring/evaluation: Will monitor closely for changes to weight, nutrition- related labs, and diet toleration. Farhat Espino, JAELR, video production intern Time Spent in Nutritional Counseling and Treatment: 0
--- NOTE | 2021-04-22 16:57 | NUR.NOTE ---
Nursing Note: At 1632 on 04/22/21, this RN received a call from VITOR Kearns at [facility]. VITOR Kearns gave this RN report on the pt., including the procedure the pt. had performed, how the pt. tolerated the procedure (well), pain medications administered (Hydromorphone (Dilaudid) x2 doses), FS prior to transfer back to [facility] (86 - pt. was given a few crackers) etc. VITOR Kearns states that the pt. left [facility] to head back to [facility] at approximately 1610 on 04/22/21. VITOR Kearns states that the procedure performed involved cutting a hole in the pt.'s stomach and placing a stent between the pt.'s stomach and pancreas to allow the stomach acids to eat away at the necrotic tissue of the pancreas. VITOR Kearns also states that hydrogen peroxide was injected in to the pancreas to help eat away at the necrotic tissue of the pancreas. VITOR Kearns states that the pt. will need to come back down to [facility] in approximately 3 weeks for a follow-up appointment. RN will reassess as necessary.
--- NOTE | 2021-04-22 19:46 | CMPROGNOTE_ITS ---
- If Service Date Differs Date of service: 04/22/21 Time of Service: 19:46 Care Management Progress Note S/O: Alan went down and back to [facility] today for an endoscopic ultrasound guided drainage of necrotic pancreatic fluid collection. He was unavailable to meet with CM. CM will continue to follow. A: 56 year old male admitted to [facility] on 04/19/21 for Necrotizing Pancreatitis P: Alan went down and back to [facility] for a drainage procedure today. For this he will transport via EMS. Dr. Srivastava continues to communicate with [facility] about the logistic of the procedure. CM will continue to follow. Anticipate lAan will be discharged home when medically cleared by provider via private vehicle with a friend vs. RCT. Need for new [facility] SN/PT is undetermined at this time. He will follow up with community providers and discharge plan of care as prescribed.
--- NOTE | 2021-04-22 19:46 | PDOC.CMPRO ---
- If Service Date Differs Date of service: 04/22/21 Time of Service: 19:46 Care Management Progress Note S/O: Alan went down and back [place] [facility] [place] for an endoscopic ultrasound guided drainage of necrotic pancreatic fluid collection. He was unavailable to meet with CM. CM will continue to follow. A: 56 year old male admitted to [facility] on 04/19/21 for Necrotizing Pancreatitis P: Alan went down and back to [facility] for a drainage procedure today. For this he will transport via EMS. Dr. Srivastava continues to communicate with [facility] about the logistic of the procedure. CM will continue to follow. Anticipate Alan will be discharged home when medically cleared by provider via private vehicle with a friend vs. RCT. Need for new [facility] SN/PT is undetermined at this time. He will follow up with community providers and discharge plan of care as prescribed.
[2021-04-23] VITALS (11 sets, daily range): BP systolic 133–166; BP diastolic 69–87; PULSE 72–90; RESP 16–19; TEMP 36.5–38.1; O2SAT 93–98
--- NOTE | 2021-04-23 | DI.US_ITS ---
Exam(s) US UPPER EXTREMITY VENOUS LT EXAM: US UPPER EXTREMITY VENOUS LT CLINICAL HISTORY: superficial thrombosis r/o DVT TECHNIQUE: GRAYSCALE, COLOR, DOPPLER IMAGING OF THE VENOUS SYSTEM OF THE UPPER EXTREMITY-LEFT COMPARISON: None FINDINGS: This is a positive-abnormal study. There is intraluminal thrombus within the cephalic venous system throughout length of the forearm and extending approximately half the way a the upper arm, to the mid upper arm level. The thrombus does not extend to the junction of the cephalic vein and brachial vei n Basilic vein: Patent. Normal color-flow and normal compression and augmentation properties. Brachial vein(s):Patent. Normal color flow. Normal compression and augmentation properties. Axillary vein: Patent. Normal color flow. Normal compression and augmentation properties. Visualized subclavian vein: Patent. No obvious intraluminal thrombus. IMPRESSION: 1. Positive study for extensive thrombus in the cephalic vein from the level of the wrist up to abov e the elbow level, half way up the upper arm. 2. No evidence of intraluminal thrombus within the basilic and brachial veins, nor within the axilla ry and subclavian veins. Close appropriate follow-up recommended. DATA REPOSITORY:
[2021-04-23] MEDS: PIPERACILLIN/TAZO 3.375 GM in Normal Saline 50 ML IV ×3 (05:47→21:31)
[2021-04-23 07:09] LABS: Abs Immature Grans 0.03 10^3/uL (0.0-0.06); Absolute Basophil Count 0.01 10^3/uL (0.0-0.2); Absolute Eosinophil Count 0.15 10^3/uL (0.0-0.7); Absolute Lymphocyte Count 0.61 10^3/uL (1.2-3.4); Absolute Monocyte Count 0.53 10^3/uL (0.1-0.8); Absolute Neutrophil Count 2.83 10^3/uL (1.2-6.7); Basophils % 0.2; Eosinophils % 3.6; HCT 28.2 % (40.0-50.0); HGB 9.3 g/dL (13.5-17.5); Immature Grans % 0.7; Lymphocytes % 14.7; MCH 30.9 pg (27.0-33.0); MCV 93.7 fL (80-95); MPV 12.6 fL (8.0-11.0); Monocytes % 12.7; Neutrophils % 68.1; Nucleated RBC 0 %; Platelet Count 100 10^3/uL (130-400); RBC 3.01 10^6/uL (4.36-5.78); RDW 14.4 % (11.8-14.1); RDW-SD 49.8 fL; WBC 4.16 10^3/uL (4.4-10.8)
[2021-04-23 07:21] LABS: ALT 16 U/L (16-63); AST 17 U/L (15-37); Albumin 2.1 g/dL (3.4-5.0); Alkaline Phosphatase 53 U/L (46-116); Anion Gap 5.8 mmol/L (3-11); BUN 7 mg/dL (7-18); Bilirubin, Total 0.5 mg/dL (0.2-1.0); C-Reactive Protein 20.99 mg/dL (0.0-0.3); CO2 30.2 mmol/L (21.0-32.0); CREATININE 0.8 mg/dL (0.70-1.30); Calcium 7.9 mg/dL (8.5-10.1); Chloride 108 mmol/L (98-107); Glucose 98 mg/dL (74-106); Potassium 3.4 mmol/L (3.5-5.1); Sodium 144 mmol/L (136-145); Total Protein 5.3 g/dL (6.4-8.2)
[2021-04-23] MEDS: HYDROmorphone 2 MG/ML VIAL IVP (08:10)
[2021-04-23] MEDS: Normal Saline Flush 10 ML SYR IVP ×2 (08:14→21:31)
--- NOTE | 2021-04-23 09:26 | CMPROGNOTE_ITS ---
- If Service Date Differs Date of service: 04/23/21 Time of Service: 09:26 Care Management Progress Note S/O: Alan reports that he feels worse today than when he came in. He doesn't have an appetite and his left arm hurts where the IV infiltrated. He had venous study today to rule at a DVT. Patient does not want a PICC line at this time, since the new IV in his right arm is doing well. Pancho shares that he hasn't had a BM since he was admitted. CM will share with nursing. A: 56 year old male admitted to [facility] on 04/19/21 for Necrotizing Pancreatitis P: Alan went down and back to [facility] for a drainage procedure yesterday. CM will continue to follow. Anticipate Alan will be discharged home when medically cleared by provider via private vehicle with a friend vs. RCT. Need for new [facility] SN/PT and IV ABX is undetermined at this time. He will follow up with community providers and discharge plan of care as prescribed.
[2021-04-23] MEDS: HYDROmorphone 2 MG TAB PO ×3 (11:47→23:19)
--- NOTE | 2021-04-23 12:20 | NUR.NOTE ---
Nursing Note: Patient very dissatisfied with his situation and care. Many concerns from patient. States that we just want me to live in pain and let me suffer. PRN pain medication offered and administered per order with moderate relief. Patient has refused Tylenol this shift. States that he doesn't want it because of his family history of liver disease. Heating pad hooked up and ready for patient use if he wishes to use for his sore left forearm from previous IV site. Patient doesn't wish to put heat on arm. Ice provided and instructed patient to keep arm elevated. Patient complained that he was hot. Temperature 37.6. Instructed patient to remove multiple blankets off of him self to help with his feeling of being hot. Will keep monitoring pt's temperature to monitor for a development of a fever. Will continue to hourly round. Patient has denied any further needs at this time.
--- NOTE | 2021-04-23 15:10 | W.PM.PROGNOT ---
Date of Service Date of service: 04/23/21 Time of Service: 15:10 Assessment and Plan Assessment and plan (1) Necrotizing pancreatitis: Status: Acute Assessment and plan: Continue Zosyn and analgesics. Of switch from IV narcotics to oral Dilaudid. I will request placement of a PICC line as the patient is going to need long-term antibiotics to treat his necrotizing pancreatitis. Hopefully once we get fluid culture results from the necrosectomy from yesterday we will be able to target antibiotics more specifically. (2) Superficial phlebitis: Status: Acute Assessment and plan: Superficial phlebitis in the left forearm secondary to an infiltrated peripheral IV. Will check a venous duplex scan of his left arm to rule out a DVT (3) Anemia: Status: Chronic Assessment and plan: anemia from acute illness; no evidence of bleeding and patient has not been on any anticoagulants. check iron studies; consider parenteral iron treatment if low Qualifiers: Anemia type: unspecified type Qualified Code(s): D64.9 - Anemia, unspecified (4) Fever: Status: Resolved Assessment and plan: low grade temp this morning. repeat blood cultures showed no growth. if he has repeated fevers then I will change from zosyn to Meropenem Qualifiers: Fever type: unspecified Qualified Code(s): R50.9 - Fever, unspecified (5) Diabetes: Status: Chronic Assessment and plan: Metformin is on hold at this time. Finger stick blood sugars controlled. continue monitoring but change to AC/HS and cover w/ SSI low dose Novolog Qualifiers: Diabetes mellitus type: type 2 Diabetes mellitus detention insulin use: without long term care administrator use Diabetes mellitus complication status: without complication Qualified Code(s): E11.9 - Type 2 diabetes mellitus without complications Subjective Subjective Interval history since last seen: Patient has no appetite. He complains of hurting all over and in particular discomfort in his left arm. He has a superficial phlebitis in his left forearm where previous IV had become infiltrated. He has a new IV that is functional in his right antecubital. He has nausea but no vomiting. He is not happy that his IV Dilaudid was discontinued for oral Dilaudid. I explained to him that his kind of pain should not require frequent parenteral narcotics. He has had a low-grade fever this morning of 38.1. I went over his findings from his endoscopic procedure from yesterday. His EUS exam revealed a large fluid collection along the lesser curve of the stomach that was 15 cm in maximum diameter had both liquid and solid debris. The endoscopist identified an area in the body of the stomach where the distance from the gastric wall and the collection was less than 10 mm and they deployed a 15 mm hot axial dose in standard fashion and was verified both endoscopically and fluoroscopically and endosonographically. Stent was dilated and the cavity was entered with a therapeutic gastroscope and dense solid debris within the cavity consistent with necrosis was identified and a cold snare was used to debride the matter from his pancreas. And a 10 Ethiopian by 4 cm Wallstent was then placed. The recommending repeat necrosectomy in about 3 weeks. Per my discussion with Dr. Del Valle yesterday he recommends continued antibiotic treatment until the patient is seen in follow-up. I did ask Dr. Del Valle to obtain fluid cultures and notify me with the results. Exam Narrative Exam Narrative: Middle-aged white male lying in bed supine position. Left arm has superficial thrombosis at the left antecubital space. There is no swelling of the upper arm. He has normal pulses in the left arm. Lungs are clear to auscultation Heart regular rate and rhythm Abdomen is soft there is no guarding or rebound tenderness he has normal bowel sounds. Objective Last Vital Signs Temp 37.6 C H 04/23/21 12:00 Pulse 82 04/23/21 12:00 Resp 18 04/23/21 12:00 BP 154/72 H 04/23/21 12:00 Pulse Ox 96 04/23/21 12:00 Laboratory Results - last 24 hr 04/23/21 04/23/21 06:40 06:40 WBC 4.16 L RBC 3.01 L Hgb 9.3 L Hct 28.2 L MCV 93.7 D MCH 30.9 MCHC 33.0 RDW 14.4 H Plt Count 100 L MPV 12.6 H Immature Gran % 0.7 Neutrophils % 68.1 Lymphocytes % 14.7 Monocytes % 12.7 Eosinophils % 3.6 Basophils % 0.2 Nucleated RBC % 0 Absolute Neutrophils 2.83 Absolute Lymphocytes 0.61 L Absolute Monocytes 0.53 Absolute Eosinophils 0.15 Absolute Basophils 0.01 Sodium 144 Potassium 3.4 L Chloride 108 H Carbon Dioxide 30.2 Anion Gap 5.8 BUN 7 Creatinine 0.8 Estimated GFR/1.73 m2 >= 60.00 Glucose 98 Calcium 7.9 L Total Bilirubin 0.5 AST 17 ALT 16 Alkaline Phosphatase 53 C-Reactive Protein 20.99 H Total Protein 5.3 L Albumin 2.1 L
--- NOTE | 2021-04-23 16:42 | NUR.NOTE ---
Nursing Note: Patient continues to say that his pain in his left arm is 10/10 after elevation and icing. Physician rounded on PT. Ultrasound ordered and obtained.
[2021-04-23] MEDS: Enoxaparin 30 MG/0.3 ML SYR SC (18:19)
[2021-04-24] VITALS (7 sets, daily range): BP systolic 151–175; BP diastolic 81–86; PULSE 74–82; RESP 16–19; TEMP 36.5–37.1; O2SAT 95–97
[2021-04-24] MEDS: PIPERACILLIN/TAZO 3.375 GM in Normal Saline 50 ML IV ×2 (05:48→14:13)
[2021-04-24 07:21] LABS: HCT 26.4 % (40.0-50.0); HGB 8.8 g/dL (13.5-17.5); MCH 30.6 pg (27.0-33.0); MCHC 33.3 % (32.0-36.0); MCV 91.7 fL (80-95); MPV 11.4 fL (8.0-11.0); Nucleated RBC 0 %; Platelet Count 132 10^3/uL (130-400); RBC 2.88 10^6/uL (4.36-5.78); RDW 14.4 % (11.8-14.1); RDW-SD 48.6 fL; WBC 6.32 10^3/uL (4.4-10.8)
[2021-04-24] MEDS: Enoxaparin 30 MG/0.3 ML SYR SC ×2 (07:21→17:16)
[2021-04-24 07:43] LABS: Absolute Neutrophil Count 5.44 10^3/uL (1.2-6.7); Iron 15 ug/dL (65-175); Total Iron Binding Capacity 136 ug/dL (250-450); Transferrin Sat 11 % (20-55)
[2021-04-24 07:44] LABS: Absolute Eosinophil Count 0.13 10^3/uL (0.0-0.7); Absolute Lymphocyte Count 0.44 10^3/uL (1.2-3.4); Absolute Monocyte Count 0.32 10^3/uL (0.1-0.8); Atypical Lymphocytes % 1; Diff Comment Manual Differential; RBC Morphology Normal
[2021-04-24 07:48] LABS: ALT 22 U/L (16-63); AST 24 U/L (15-37); Alkaline Phosphatase 52 U/L (46-116); Anion Gap 4.4 mmol/L (3-11); BUN 4 mg/dL (7-18); Bilirubin, Total 0.6 mg/dL (0.2-1.0); CO2 27.6 mmol/L (21.0-32.0); CREATININE 0.7 mg/dL (0.70-1.30); Calcium 7.7 mg/dL (8.5-10.1); Chloride 106 mmol/L (98-107); Glucose 114 mg/dL (74-106); Potassium 3.1 mmol/L (3.5-5.1); Sodium 138 mmol/L (136-145); Total Protein 4.8 g/dL (6.4-8.2)
[2021-04-24 07:53] LABS: Procalcitonin 0.5 ng/mL
[2021-04-24 08:12] LABS: Folate 4.8 ng/mL (8.6-20.0); Vitamin B12 1300 pg/mL (193-986)
[2021-04-24 08:18] LABS: Ferritin 257 ng/mL (26-388)
--- NOTE | 2021-04-24 08:48 | CMPROGNOTE_ITS ---
- If Service Date Differs Date of service: 04/24/21 Time of Service: 08:48 Care Management Progress Note S/O: Pancho was lying flat in bed when CM met with him. He was awake, although his eyes were closed while his vitals were being taken by the [employer]. He reported pain in his groin, similar to needing it have a bowel movement. CM suggested he sit on the commode, however he reported that he really doesn't have to go right now. Pancho shared that the nurse just gave him pain medication and he wa nted to see if that would help. Pancho was wondering if he should be using hot or cold compresses on his left arm. CM notified nursing and they will assess his need for compresses. A: 56 year old male admitted to [facility] on 04/19/21 for Necrotizing Pancreatitis P: Anticipate Alan will be discharged home when medically cleared by provider via private vehicle with a friend vs. RCT. Need for new [facility] SN/PT and IV ABX is undetermined at this time. He will follow up with community providers and discharge plan of care as prescribed.
[2021-04-24] MEDS: Spironolactone 25 MG TAB PO (09:14)
[2021-04-24] MEDS: Potassium Chloride 20 MEQ TABCR PO ×2 (09:14→19:57)
[2021-04-24] MEDS: Lisinopril 20 MG TAB PO (09:14)
[2021-04-24] MEDS: amLODIPine 5 MG TAB PO (09:15)
[2021-04-24] MEDS: IRON SUCROSE COMPLEX 300 MG in Normal Saline 250 ML 167 MG IVPB (10:09)
[2021-04-24] MEDS: oxyCODONE-CR 10 MG TABCR PO ×2 (11:43→21:19)
[2021-04-24] MEDS: Magnesium Citrate 300 ML BTL 150 ML PO (11:43)
[2021-04-24] MEDS: Methylnaltrexone 12 MG/0.6 ML VIAL 8 MG SC (11:44)
[2021-04-24] MEDS: Docusate Sodium 100 MG CAP PO ×2 (11:44→19:57)
[2021-04-24 16:17] LABS: Potassium 3.3 mmol/L (3.5-5.1)
[2021-04-24] MEDS: oxyCODONE 5 MG TAB PO (16:41)
[2021-04-24] MEDS: Potassium Chloride 20 MEQ TABCR 40 MEQ PO (18:34)
--- NOTE | 2021-04-24 18:47 | PGE_ITS ---
Date of Service Date of service: 04/24/21 Time of Service: 18:48 Assessment and Plan Assessment and plan (1) Necrotizing pancreatitis: Status: Acute Assessment and plan: change Zosyn to Meropenem; check w/ [facility] to see if they sent fluid cultures. (2) Superficial phlebitis: Status: Acute Assessment and plan: cephalic vein thrombosis; on enoxaparin; monitor w/ repeat US tomorrow. (3) Secondary hypertension: Status: Chronic Assessment and plan: resume his spironolactone, norvasc and lisinopril (4) Diabetes: Status: Chronic Assessment and plan: cover w/ SSI novolog; monitor AC/HS Qualifiers: Diabetes mellitus type: type 2 Diabetes mellitus skilled nursing insulin use: without skilled nursing use Diabetes mellitus complication status: without complication Qualified Code(s): E11.9 - Type 2 diabetes mellitus without complications (5) Anemia: Status: Chronic Assessment and plan: iron deficiency anemia suggests chronic blood loss anemia. I have ordered stool for occult blood. I have ordered parenteral iron therapy. Will monitor hemoglobin. I stopped his protonix per GI request as they wanted acid secretion from the stomach to help sterilize and fistulize the stent from his stomach to his pancreas. Qualifiers: Anemia type: unspecified type Qualified Code(s): D64.9 - Anemia, unspecified Subjective Subjective Interval history since last seen: Pancho is still have a lot of pain this morning but has had some improvement since changing his hydromorphone to oxycodone. I put him on long-acting oxycodone to decrease the amount of prn dosing. He is not been cooperative with applying a K pad to his left forearm to treat his cephalic vein thrombosis. He is on intermediate dosing of enoxaparin 30 mg SC Q12h. I will repeat his LUE US tomorrow to look for progression of the thrombus. If it has not progressed into his axillary vein then he can remain on the current dose of enoxeparin but if he has an axillary thrombosis then he will need full anticoagulation for 3 months. 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 I do not believe that [facility] sent any fluid cultures of his pancreas. I will ask nursing to request any fluid cultures but when I looked into his [facility] record, there did not appear to be any micro cultures from 04/22. He has been having breakthrough fevers last night. I will change his Zosyn to Meropenem. Exam Narrative Exam Narrative: White male lying in bed not interested in eating his dinner. He is alert and oriented. Abdomen nondistended he has a few scattered bowel sounds no distention minimal tenderness with palpation epigastrium and left upper quadrant no guarding rebound tenderness. Left arm with palpable thrombosis of the cephalic vein and running into the antecubital as of the proximal left humerus. Humerus itself is not edematous. Good pulses in the left wrist. There is no sign of cellulitis. Objective Last Vital Signs Temp 36.9 C 04/24/21 16:13 Pulse 77 04/24/21 16:13 Resp 18 04/24/21 16:13 BP 152/81 H 04/24/21 16:13 Pulse Ox 95 04/24/21 16:13 Laboratory Results - last 24 hr 04/24/21 04/24/21 04/24/21 06:57 06:57 06:57 WBC 6.32 D RBC 2.88 L Hgb 8.8 L Hct 26.4 L MCV 91.7 MCH 30.6 MCHC 33.3 RDW 14.4 H Plt Count 132 MPV 11.4 H Immature Gran % 0.0 Neutrophils % 86.0 Lymphocytes % 6.0 Atypical Lymphs % 1 Monocytes % 5.0 Eosinophils % 2.0 Basophils % 0.0 Nucleated RBC % 0 Absolute Neutrophils 5.44 Absolute Lymphocytes 0.44 L Absolute Monocytes 0.32 Absolute Eosinophils 0.13 Absolute Basophils 0.00 RBC Morphology Normal Sodium 138 Potassium 3.1 L Chloride 106 Carbon Dioxide 27.6 Anion Gap 4.4 BUN 4 L Creatinine 0.7 Estimated GFR/1.73 m2 >= 60.00 Glucose 114 H Calcium 7.7 L Iron TIBC Transferrin % Sat Ferritin 257 Total Bilirubin 0.6 AST 24 ALT 22 Alkaline Phosphatase 52 Total Protein 4.8 L Albumin 2.0 L Vitamin B12 Folate Procalcitonin 0.5 04/24/21 04/24/21 04/24/21 06:57 06:57 16:05 WBC RBC Hgb Hct MCV MCH MCHC RDW Plt Count MPV Immature Gran % Neutrophils % Lymphocytes % Atypical Lymphs % Monocytes % Eosinophils % Basophils % Nucleated RBC % Absolute Neutrophils Absolute Lymphocytes Absolute Monocytes Absolute Eosinophils Absolute Basophils RBC Morphology Sodium Potassium 3.3 L Chloride Carbon Dioxide Anion Gap BUN Creatinine Estimated GFR/1.73 m2 Glucose Calcium Iron 15 L TIBC 136 L Transferrin % Sat 11 L Ferritin Total Bilirubin AST ALT Alkaline Phosphatase Total Protein Albumin Vitamin B12 1300 H Folate 4.8 L Procalcitonin
[2021-04-24] MEDS: MEROPENEM 1 GM in Normal Saline 100 ML IVPB (19:56)
[2021-04-24] MEDS: Normal Saline Flush 10 ML SYR IVP (19:57)
[2021-04-24] MEDS: Senna TAB 1 TAB PO (21:19)
[2021-04-25] MEDS: oxyCODONE 5 MG TAB PO ×3 (03:41→21:57)
[2021-04-25] MEDS: MEROPENEM 1 GM in Normal Saline 100 ML IVPB ×3 (03:46→20:08)
[2021-04-25] MEDS: Enoxaparin 30 MG/0.3 ML SYR SC ×2 (05:45→17:35)
--- NOTE | 2021-04-25 07:00 | DI.US_ITS ---
Exam(s) US UPPER EXTREMITY VENOUS LT EXAM: US UPPER EXTREMITY VENOUS LT CLINICAL HISTORY: propogating cephalic vein thrombosis. TECHNIQUE: Ultrasound examination of the left upper extremity venous system(s) is performed using gr ayscale, color-flow, and spectral Doppler analysis. COMPARISON: US US UPPER EXTREMITY VENOUS LT from 04/23/2021 FINDINGS: A cephalic vein thrombosis is again noted from the level of the wrist extending to the mid upper arm level. There is no further propagation into the brachial vein. The basilic vein remains free of thr ombus. Thrombus is also noted the median cubital vein. IMPRESSION: Stable appearance of cephalic vein thrombosis with no further propagation. DATA REPOSITORY:
[2021-04-25 07:02] LABS: HCT 26.8 % (40.0-50.0); HGB 8.8 g/dL (13.5-17.5); MCH 30.6 pg (27.0-33.0); MCHC 32.8 % (32.0-36.0); MCV 93.1 fL (80-95); MPV 10.9 fL (8.0-11.0); Nucleated RBC 0 %; Platelet Count 155 10^3/uL (130-400); RBC 2.88 10^6/uL (4.36-5.78); RDW 14.4 % (11.8-14.1); RDW-SD 48.6 fL; WBC 9.02 10^3/uL (4.4-10.8)
[2021-04-25 07:16] LABS: ALT 23 U/L (16-63); AST 19 U/L (15-37); Alkaline Phosphatase 59 U/L (46-116); Anion Gap 9.1 mmol/L (3-11); BUN 4 mg/dL (7-18); Bilirubin, Total 0.5 mg/dL (0.2-1.0); CO2 25.9 mmol/L (21.0-32.0); CREATININE 0.7 mg/dL (0.70-1.30); Calcium 7.9 mg/dL (8.5-10.1); Chloride 105 mmol/L (98-107); Glucose 127 mg/dL (74-106); Potassium 3.7 mmol/L (3.5-5.1); Sodium 140 mmol/L (136-145); Total Protein 5.3 g/dL (6.4-8.2)
[2021-04-25 07:24] LABS: Absolute Basophil Count 0.09 10^3/uL (0.0-0.2); Absolute Eosinophil Count 0.09 10^3/uL (0.0-0.7); Absolute Lymphocyte Count 0.72 10^3/uL (1.2-3.4); Absolute Monocyte Count 0.18 10^3/uL (0.1-0.8)
[2021-04-25 07:25] LABS: Absolute Neutrophil Count 7.94 10^3/uL (1.2-6.7); Diff Comment Manual Differential; RBC Morphology Normal
[2021-04-25] MEDS: Docusate Sodium 100 MG CAP PO ×2 (07:32→20:09)
[2021-04-25] MEDS: Potassium Chloride 20 MEQ TABCR PO ×2 (07:33→14:34)
[2021-04-25] MEDS: Lisinopril 20 MG TAB PO (07:33)
[2021-04-25] MEDS: amLODIPine 5 MG TAB PO (07:37)
[2021-04-25] MEDS: Spironolactone 25 MG TAB PO (07:38)
[2021-04-25 08:06] VITALS: BP 163/83; PULSE 82; RESP 17; TEMP 36.5; O2SAT 97
[2021-04-25] MEDS: oxyCODONE-CR 10 MG TABCR PO (09:53)
[2021-04-25 10:45] VITALS: O2SAT 97
[2021-04-25] MEDS: Multivitamin TAB 1 TAB PO (14:33)
[2021-04-25] MEDS: Folic Acid 1 MG TAB PO (14:33)
[2021-04-25] MEDS: Thiamine 100 MG TAB PO (14:34)
[2021-04-25] MEDS: Protein Nutritional Supplement 16 GM 1 OUNCE PACKET PO ×2 (14:34→20:08)
--- NOTE | 2021-04-25 14:54 | TELEFU_ITS ---
Date of service: 04/25/21 Time of Service: 14:54 Nutrition Note NOTE: Weight is stable. PO intake is fair on fat restricted diet. Blood sugars at target. Getting 1 oz. liquid protein, tid as well as MVI and additional B vitamins. Continue with current nutritional care plan. Will cont inue to follow. Time Spent in Nutritional Counseling and Treatment: 0
--- NOTE | 2021-04-25 15:52 | PGE_ITS ---
Date of Service Date of service: 04/25/21 Time of Service: 15:53 Assessment and Plan Assessment and plan (1) Superficial phlebitis: Status: Acute Assessment and plan: thrombosis still only involves the cephalic vein. continue to monitor. if not improving w/ enoxaparin, heat, elevation and treatment of the cellulitis, then repeat U.S. in couple days to rule out propagation; sooner if upper arm becomes swollen. (2) Cellulitis of left arm: Status: Acute Assessment and plan: secondary to iv infiltration. treat w/ PCN G 2.5 million units Q6hr. If no significant improvement over the next 24hr then add Vancomycin. (3) Necrotizing pancreatitis: Status: Acute Assessment and plan: improving. pain is less and he is starting to eat. cont. Meropenem. followup w/ [facility] in 3 weeks. Unclear as to how long to treat w/ Meropenem. I would consider I.D. consult over telephone to discuss optimal treatment duration and acceptable oral alternatives. Patient's PPI was stopped per GI request. (4) Secondary hypertension: Status: Chronic Assessment and plan: home BP meds resumed. (5) Diabetes: Status: Chronic Assessment and plan: blood sugars acceptable on current sliding scale. May need to adjust insulin once his oral intake picksup Qualifiers: Diabetes mellitus complication status: without complication Diabetes mellitus half-way insulin use: without termite exterminator helper use Diabetes mellitus type: type 2 Qualified Code(s): E11.9 - Type 2 diabetes mellitus without complications (6) Anemia: Status: Chronic Assessment and plan: continue parenteral iron supplementation. Qualifiers: Anemia type: unspecified type Qualified Code(s): D64.9 - Anemia, unspecified (7) Constipation: Status: Acute Assessment and plan: patient is already on Senna, docusate and miralax. Will order magnesium citrate for in the a.m. if he has not had a BM by morning. (also can try Relistor) Qualifiers: Constipation type: drug induced constipation Qualified Code(s): K59.03 - Drug induced constipation Subjective Subjective Interval history since last seen: Abdominal pain is improved on the long acting oxycodone. He has begun to eat a little and he is drinking fluids well. No nausea or vomiting. We have not received any fluid cultures from [facility]. Because of his recurrent fevers yesterday and since we had no culture results from [facility] to guide therapy, I changed his Zosyn to Meropenem yesterday and he has had no fevers since. [facility] wanted him on antibiotics until they bring him back for repeat necrosectomy in 3 weeks. However, it is unclear as to how long to treat him w/ parenteral antibiotics. With respect to his left arm thrombosis, repeat US of his LUE was done today and this showed no propogation of his left cephalic thrombosis. He remains on lovenox 30 mg SC q12h. However he now has redness and increased warmth over the previous iv site in his left forearm. I will put him on high dose PCN G for Strep, but if he does not respond to this then he may need Vancomycin for Staph. Patient is passing flatus but no BM yet despite being on stool softeners and prn laxatives. Exam Narrative Exam Narrative: Middle age white male lying in bed Lungs: clear Heart: RRR Abdomen: soft, minimal tenderness w/ palpation over the LUQ, epigastrium. active bowel sounds Objective Last Vital Signs Temp 36.5 C 04/25/21 08:06 Pulse 82 04/25/21 08:06 Resp 17 04/25/21 08:06 BP 163/83 H 04/25/21 08:06 Pulse Ox 97 04/25/21 10:45 Laboratory Results - last 24 hr 04/24/21 04/25/21 04/25/21 16:05 06:53 06:53 WBC 9.02 D RBC 2.88 L Hgb 8.8 L Hct 26.8 L MCV 93.1 MCH 30.6 MCHC 32.8 RDW 14.4 H Plt Count 155 MPV 10.9 Immature Gran % 0.0 Neutrophils % 88.0 Lymphocytes % 8.0 Monocytes % 2.0 Eosinophils % 1.0 Basophils % 1.0 Nucleated RBC % 0 Absolute Neutrophils 7.94 H Absolute Lymphocytes 0.72 L Absolute Monocytes 0.18 Absolute Eosinophils 0.09 Absolute Basophils 0.09 RBC Morphology Normal Sodium 140 Potassium 3.3 L 3.7 Chloride 105 Carbon Dioxide 25.9 Anion Gap 9.1 BUN 4 L Creatinine 0.7 Estimated GFR/1.73 m2 >= 60.00 Glucose 127 H Calcium 7.9 L Total Bilirubin 0.5 AST 19 ALT 23 Alkaline Phosphatase 59 Total Protein 5.3 L Albumin 2.0 L
[2021-04-25 16:12] VITALS: BP 161/82; PULSE 84; RESP 16; TEMP 38.2; O2SAT 96
--- NOTE | 2021-04-25 16:22 | PDOC.CMPRO ---
- If Service Date Differs Date of service: 04/25/21 Time of Service: 14:03 Care Management Progress Note S/O: Pancho was lying flat in bed when CM met with him. He continues to express being in pain and uncomfortable. CM notified nursing and they will assess his need for compresses. A: 56 year old male admitted to [facility] on 04/19/21 for Necrotizing Pancreatitis P: Anticipate Alan will be discharged home when medically cleared by provider via private vehicle with a friend vs. RCT. Need for new [facility] SN/PT and IV ABX is undetermined at this time. He will follow up with community providers and discharge plan of care as prescribed.
[2021-04-25] MEDS: Normal Saline Flush 10 ML SYR IVP (20:08)
[2021-04-25 20:10] VITALS: O2SAT 96
[2021-04-25] MEDS: Senna TAB 1 TAB PO (21:38)
[2021-04-25 23:11] VITALS: BP 156/83; PULSE 90; RESP 18; TEMP 36.5; O2SAT 98
--- NOTE | 2021-04-26 | DI.CT_ITS ---
Exam(s) CT CHEST PE CTA EXAM: CT CHEST PE CTA CLINICAL HISTORY: Chest pain with known LUE thrombosis. TECHNIQUE: Imaging Protocol: Axial CT angiography was performed with multi-slice acquisition and mu lti-planar and/or 3D reconstructions. CONTRAST MATERIAL: Intravenous: Omnipaque 350 Contrast volume:structured data in ml COMPARISON: CT CT CHEST PE ABD PELVIS W from 04/18/2021 FINDINGS: CT angiography of the chest was performed with intravenous infusion of 100 cc of Omnipaque 350. The lungs are clear. No pleural effusion. Tracheobronchial tree appears intact. No evidence of pulmonary embolic disease. Thoracic aorta is of normal diameter, no thoracic aortic an eurysm or dissection, major branch vessels appear intact. No mediastinal or hilar adenopathy. Images obtained through the upper abdomen show unremarkable appearance of the visualized portions of the liver, spleen, pancreas, adrenals, and kidneys. IMPRESSION: Negative CT angiogram of the chest. No evidence of pulmonary embolic disease. RADIATION DOSE DELIVERED: 405.94mGy.cm Total DLP 405.94mGy.cm Total DLP 12.05mGy CTDIvol DATA REPOSITORY: All CT scans at this facility are submitted to the National Radiology Data Registry (NRDR) Dose Index Registry (DIR) with the [employer] (A[employer]). RADIATION OPTIMIZATION: All CT scans at this facility use at least one of these dose optimization te chniques: automated exposure control; mA and/or kV adjustment per patient size (includes targeted exa ms where dose is matched to clinical indication); or iterative reconstruction.
[2021-04-26] MEDS: oxyCODONE-CR 10 MG TABCR PO ×3 (00:50→21:11)
[2021-04-26] MEDS: Normal Saline 500 ML 30 ML IV (00:51)
[2021-04-26] MEDS: MEROPENEM 1 GM in Normal Saline 100 ML IVPB ×3 (05:03→21:10)
[2021-04-26] MEDS: Normal Saline Flush 10 ML SYR IVP ×3 (05:04→21:11)
[2021-04-26] MEDS: Enoxaparin 30 MG/0.3 ML SYR SC (05:28)
[2021-04-26 07:36] VITALS: BP 144/84; PULSE 78; RESP 18; TEMP 36.6; O2SAT 95
[2021-04-26 07:36] LABS: Abs Immature Grans 0.06 10^3/uL (0.0-0.06); Absolute Basophil Count 0.04 10^3/uL (0.0-0.2); Absolute Eosinophil Count 0.18 10^3/uL (0.0-0.7); Absolute Lymphocyte Count 0.88 10^3/uL (1.2-3.4); Absolute Monocyte Count 0.54 10^3/uL (0.1-0.8); Absolute Neutrophil Count 7.07 10^3/uL (1.2-6.7); Basophils % 0.5; Eosinophils % 2.1; HCT 28.5 % (40.0-50.0); HGB 9.4 g/dL (13.5-17.5); Immature Grans % 0.7; MCH 30.7 pg (27.0-33.0); MCV 93.1 fL (80-95); MPV 10.9 fL (8.0-11.0); Monocytes % 6.2; Neutrophils % 80.5; Nucleated RBC 0 %; Platelet Count 160 10^3/uL (130-400); RBC 3.06 10^6/uL (4.36-5.78); RDW 14.5 % (11.8-14.1); RDW-SD 49.2 fL; WBC 8.77 10^3/uL (4.4-10.8)
[2021-04-26 08:09] LABS: ALT 22 U/L (16-63); AST 17 U/L (15-37); Albumin 2.3 g/dL (3.4-5.0); Alkaline Phosphatase 59 U/L (46-116); BUN 9 mg/dL (7-18); Bilirubin, Total 0.5 mg/dL (0.2-1.0); C-Reactive Protein 9.07 mg/dL (0.0-0.3); CREATININE 0.7 mg/dL (0.70-1.30); Chloride 106 mmol/L (98-107); Glucose 101 mg/dL (74-106); Potassium 3.5 mmol/L (3.5-5.1); Sodium 139 mmol/L (136-145); Total Protein 5.9 g/dL (6.4-8.2)
[2021-04-26] MEDS: amLODIPine 5 MG TAB PO (08:38)
[2021-04-26] MEDS: Folic Acid 1 MG TAB PO (08:39)
[2021-04-26] MEDS: Docusate Sodium 100 MG CAP PO ×2 (08:39→21:13)
[2021-04-26] MEDS: IRON SUCROSE COMPLEX 300 MG in Normal Saline 250 ML 167 MG IVPB (08:40)
[2021-04-26] MEDS: Protein Nutritional Supplement 16 GM 1 OUNCE PACKET PO ×3 (08:40→21:11)
[2021-04-26] MEDS: Lisinopril 20 MG TAB PO (08:40)
[2021-04-26] MEDS: Multivitamin TAB 1 TAB PO (08:40)
[2021-04-26] MEDS: Spironolactone 25 MG TAB PO (08:40)
[2021-04-26] MEDS: Thiamine 100 MG TAB PO (08:41)
[2021-04-26 11:59] LABS: PTT Activated 25.2 sec (21.0-27.5)
--- NOTE | 2021-04-26 14:15 | RT.EKG_ITS ---
APPROVED REPORT Exam: Resting ECG Reason for Exam: chest pain Patient Location: I HR:76 bpm ECG Measurements Heart Rate 76 AXIS NE 146 P 17 QRSd 81 QRS -25 QT 421 T 16 QTc 475 Conclusion Sinus rhythm...normal P axis, V-rate 60- 99
[2021-04-26 14:17] VITALS: O2SAT 95
[2021-04-26] MEDS: Normal Saline - Diluent 50 ML VIAL IV (14:49)
[2021-04-26] MEDS: Omnipaque 350 MG/ML 100 ML BTL IJ (14:49)
[2021-04-26] MEDS: VANCOMYCIN/WATER (PEG) 1.5 GM/300 ML BAG IV (15:11)
[2021-04-26] MEDS: oxyCODONE 5 MG TAB PO (15:12)
[2021-04-26] MEDS: Methylnaltrexone 12 MG/0.6 ML VIAL SC (15:27)
[2021-04-26 15:51] VITALS: BP 134/82; PULSE 78; RESP 18; TEMP 36.6; O2SAT 98
[2021-04-26 16:24] LABS: Troponin I < 0.05 ng/mL (<0.06)
--- NOTE | 2021-04-26 16:35 | W.PM.PROGNOT ---
Date of Service Date of service: 04/26/21 Time of Service: 13:57 Assessment and Plan Assessment and plan (1) Superficial phlebitis: Start date: 04/26/21 Start time: 13:57 Status: Acute Assessment and plan: Positive study for extensive thrombus in the cephalic vein from the level of the wrist up to above the elbow level, half way up the upper arm. Arm is swollen, painful C/o chest pain, will add vanco to regimen. Start heparin drip C/o left sided cp CTA done to r/o PE, negative for PE Teley placed, trop negative, EKG with normal Sinus rhythm rate 76 (2) Chest pain: Start date: 04/26/21 Start time: 13:57 Status: Acute Assessment and plan: as above (3) Anxiety: Start date: 04/26/21 Start time: 13:57 Status: Chronic Assessment and plan: will order ativan prn for anxiety (4) Cellulitis of left arm: Start date: 04/26/21 Start time: 16:47 Status: Acute Assessment and plan: secondary to iv infiltration. treat w/ PCN G 2.5 million units Q6hr. If no significant improvement over the next 24hr then add Vancomycin. Dcd pcn, continue merepenem and add vanco (5) Necrotizing pancreatitis: Start date: 04/26/21 Start time: 13:57 Status: Acute Assessment and plan: improving. pain is less and he is starting to eat. cont. Meropenem. followup w/ [facility] [place] 3 weeks. Unclear as to how long to treat w/ Meropenem. consider I.D. consult over telephone to discuss optimal treatment duration and acceptable oral alternatives. Patient's PPI was stopped per GI request. (6) Secondary hypertension: Start date: 04/26/21 Start time: 13:57 Status: Chronic Assessment and plan: home BP meds resumed. (7) Diabetes: Start date: 04/26/21 Start time: 13:57 Status: Chronic Assessment and plan: blood sugars acceptable on current sliding scale. May need to adjust insulin once his oral intake picksup At this time no appetite Qualifiers: Diabetes mellitus type: type 2 Diabetes mellitus longterm insulin use: without terminal system operator use Diabetes mellitus complication status: without complication Qualified Code(s): E11.9 - Type 2 diabetes mellitus without complications (8) Anemia: Start date: 04/26/21 Start time: 13:57 Status: Chronic Assessment and plan: continue parenteral iron supplementation. Qualifiers: Anemia type: unspecified type Qualified Code(s): D64.9 - Anemia, unspecified (9) Constipation: Start date: 04/26/21 Start time: 13:57 Status: Acute Assessment and plan: patient is already on Senna, docusate and miralax. Will order magnesium citrate for in the a.m. if he has not had a BM by morning. (also can try Relistor) Large stool on 04/22, no stool yet, though patient states he is not eating much Qualifiers: Constipation type: drug induced constipation Qualified Code(s): K59.03 - Drug induced constipation (10) DVT prophylaxis: Start date: 04/26/21 Start time: 13:57 Status: Acute Assessment and plan: enoxaparin dcd and heparin drip started as above (11) Discharge planning issues: Start date: 04/26/21 Start time: 13:57 Status: Acute Assessment and plan: home when medically ready discussed with Dr. Morris Subjective Subjective Patient reports: still having pain Interval history since last seen: Patient lying in bed. Left arm with erythema to forearm extending from wrist to right below elbow. Marked with margins. Severe pain. U/s revealed Positive study for extensive thrombus in the cephalic vein from the level of the wrist up to above the elbow level, half way up the upper arm. Due to the severity of erythema and extension patient placed on heparin drip. He was c/o of Left sided CP as well. CTA r/o PE, placed on teley, trop negative. EKG reveals no abnormality, NSR with no ST elevation or ectopic beats. Rate at 76. Will continue to monitor site, also started on vanco. Exam Narrative Exam Narrative: Middle age white male lying in bed Lungs: clear Heart: RRR Abdomen: soft, minimal tenderness w/ palpation over the LUQ, epigastrium. active bowel sounds, 3 suture lines approximated and intact. LUE with erythema extending from wrist to below elbow. painful Objective Last Vital Signs Temp 36.6 C 04/26/21 15:51 Pulse 78 04/26/21 15:51 Resp 18 04/26/21 15:51 BP 134/82 04/26/21 15:51 Pulse Ox 98 04/26/21 15:51 Laboratory Results - last 24 hr 04/26/21 04/26/21 04/26/21 07:15 07:15 11:30 WBC 8.77 RBC 3.06 L Hgb 9.4 L Hct 28.5 L MCV 93.1 MCH 30.7 MCHC 33.0 RDW 14.5 H Plt Count 160 MPV 10.9 Immature Gran % 0.7 Neutrophils % 80.5 Lymphocytes % 10.0 Monocytes % 6.2 Eosinophils % 2.1 Basophils % 0.5 Nucleated RBC % 0 Absolute Neutrophils 7.07 H Absolute Lymphocytes 0.88 L Absolute Monocytes 0.54 Absolute Eosinophils 0.18 Absolute Basophils 0.04 APTT 25.2 Sodium 139 Potassium 3.5 Chloride 106 Carbon Dioxide 26.0 Anion Gap 7.0 BUN 9 Creatinine 0.7 Estimated GFR/1.73 m2 >= 60.00 Glucose 101 Calcium 8.0 L Total Bilirubin 0.5 AST 17 ALT 22 Alkaline Phosphatase 59 Troponin I C-Reactive Protein 9.07 H Total Protein 5.9 L Albumin 2.3 L 04/26/21 16:00 WBC RBC Hgb Hct MCV MCH MCHC RDW Plt Count MPV Immature Gran % Neutrophils % Lymphocytes % Monocytes % Eosinophils % Basophils % Nucleated RBC % Absolute Neutrophils Absolute Lymphocytes Absolute Monocytes Absolute Eosinophils Absolute Basophils APTT Sodium Potassium Chloride Carbon Dioxide Anion Gap BUN Creatinine Estimated GFR/1.73 m2 Glucose Calcium Total Bilirubin AST ALT Alkaline Phosphatase Troponin I < 0.05 C-Reactive Protein Total Protein Albumin
[2021-04-26 18:14] VITALS: PULSE 81
[2021-04-26 19:51] LABS: PTT Activated 30.8 sec (21.0-27.5)
[2021-04-26] MEDS: Senna TAB 1 TAB PO (21:13)
[2021-04-26 21:15] VITALS: O2SAT 98
[2021-04-26] MEDS: VANCOMYCIN/WATER (PEG) 1.25 GM/250 ML BAG IVPB (22:28)
[2021-04-26 23:50] VITALS: BP 138/78; PULSE 81; PULSE 84; RESP 18; TEMP 36.9; O2SAT 96
[2021-04-27] MEDS: MEROPENEM 1 GM in Normal Saline 100 ML IVPB ×3 (04:04→21:15)
[2021-04-27 04:05] VITALS: BP 133/73; PULSE 77; RESP 16; TEMP 36.7; O2SAT 98
[2021-04-27] MEDS: VANCOMYCIN/WATER (PEG) 1.25 GM/250 ML BAG IVPB ×3 (05:08→22:57)
[2021-04-27 05:11] LABS: Abs Immature Grans 0.05 10^3/uL (0.0-0.06); Absolute Basophil Count 0.04 10^3/uL (0.0-0.2); Absolute Eosinophil Count 0.15 10^3/uL (0.0-0.7); Absolute Lymphocyte Count 1.09 10^3/uL (1.2-3.4); Absolute Monocyte Count 0.51 10^3/uL (0.1-0.8); Absolute Neutrophil Count 6.35 10^3/uL (1.2-6.7); Basophils % 0.5; Eosinophils % 1.8; HCT 28.2 % (40.0-50.0); HGB 9.4 g/dL (13.5-17.5); Immature Grans % 0.6; Lymphocytes % 13.3; MCH 30.9 pg (27.0-33.0); MCHC 33.3 % (32.0-36.0); MCV 92.8 fL (80-95); Monocytes % 6.2; Neutrophils % 77.6; Nucleated RBC 0 %; Platelet Count 171 10^3/uL (130-400); RBC 3.04 10^6/uL (4.36-5.78); RDW 14.4 % (11.8-14.1); RDW-SD 48.3 fL; WBC 8.19 10^3/uL (4.4-10.8)
[2021-04-27 05:24] LABS: ALT 25 U/L (16-63); AST 19 U/L (15-37); Albumin 2.3 g/dL (3.4-5.0); Alkaline Phosphatase 57 U/L (46-116); Anion Gap 9.1 mmol/L (3-11); BUN 13 mg/dL (7-18); Bilirubin, Direct 0.1 mg/dL (0.0-0.2); Bilirubin, Total 0.4 mg/dL (0.2-1.0); C-Reactive Protein 8.17 mg/dL (0.0-0.3); CO2 23.9 mmol/L (21.0-32.0); CREATININE 0.7 mg/dL (0.70-1.30); Calcium 7.9 mg/dL (8.5-10.1); Chloride 107 mmol/L (98-107); Glucose 107 mg/dL (74-106); Magnesium 1.9 mg/dL (1.8-2.4); Potassium 3.6 mmol/L (3.5-5.1); Sodium 140 mmol/L (136-145); Total Protein 5.9 g/dL (6.4-8.2)
[2021-04-27 08:38] LABS: Procalcitonin 0.2 ng/mL
[2021-04-27 09:16] VITALS: BP 124/70; PULSE 79; RESP 19; TEMP 36.7; O2SAT 98
[2021-04-27] MEDS: Multivitamin TAB 1 TAB PO (09:33)
[2021-04-27] MEDS: Folic Acid 1 MG TAB PO (09:33)
[2021-04-27] MEDS: Docusate Sodium 100 MG CAP PO ×2 (09:34→21:17)
[2021-04-27] MEDS: oxyCODONE-CR 10 MG TABCR PO ×2 (09:34→21:16)
[2021-04-27] MEDS: Lisinopril 20 MG TAB PO (09:35)
[2021-04-27] MEDS: Thiamine 100 MG TAB PO (09:35)
[2021-04-27] MEDS: Protein Nutritional Supplement 16 GM 1 OUNCE PACKET PO ×3 (09:36→21:16)
[2021-04-27] MEDS: amLODIPine 5 MG TAB PO (09:36)
[2021-04-27] MEDS: Spironolactone 25 MG TAB PO (09:36)
[2021-04-27] MEDS: Magnesium Citrate 300 ML BTL PO (09:47)
[2021-04-27] MEDS: Senna TAB 1 TAB PO ×2 (09:47→21:17)
--- NOTE | 2021-04-27 11:41 | PGE_ITS ---
Date of Service Date of service: 04/27/21 Time of Service: 11:44 Assessment and Plan Assessment and plan (1) Superficial phlebitis: Start date: 04/27/21 Start time: 11:50 Status: Acute Assessment and plan: Positive study for extensive thrombus in the cephalic vein from the level of the wrist up to above the elbow level, half way up the upper arm. Arm is swollen, painful, improved within margins today No CP since yesterday vanco day 2 in addition to merepenem, repeat cultures pending Febrile on 04/25 at 1412, afebrile since. On heparin drip CTA negative for PE Teley dcd, NSR in 70's (2) Chest pain: Start date: 04/27/21 Start time: 11:52 Status: Resolved Assessment and plan: resolved (3) Anxiety: Start date: 04/27/21 Start time: 11:52 Status: Chronic Assessment and plan: will order ativan prn for anxiety (4) Cellulitis of left arm: Start date: 04/27/21 Start time: 11:52 Status: Acute Assessment and plan: secondary to iv infiltration. as above (5) Necrotizing pancreatitis: Start date: 04/27/21 Start time: 11:54 Status: Acute Assessment and plan: improving. pain is less and he is starting to eat. cont. Meropenem. followup w/ [facility] [place] [place] [facility] in 3 weeks. Unclear as to how long to treat w/ Meropenem. consider I.D. consult over telephone to discuss optimal treatment duration and acceptable oral alternatives. Patient's PPI was stopped per GI request. At this time they would like antibiotic treatment to continue until patient is seen in f/u (6) Secondary hypertension: Start date: 04/27/21 Start time: 11:55 Status: Chronic Assessment and plan: home BP meds resumed. (7) Diabetes: Start date: 04/27/21 Start time: 11:55 Status: Chronic Assessment and plan: blood sugars acceptable on current sliding scale. May need to adjust insulin once his oral intake picksup At this time no appetite Qualifiers: Diabetes mellitus type: type 2 Diabetes mellitus nursing home insulin use: without nursing home use Diabetes mellitus complication status: without complication Qualified Code(s): E11.9 - Type 2 diabetes mellitus without complications (8) Anemia: Start date: 04/27/21 Start time: 11:55 Status: Chronic Assessment and plan: continue parenteral iron supplementation. Qualifiers: Anemia type: unspecified type Qualified Code(s): D64.9 - Anemia, unspe cified (9) Constipation: Start date: 04/27/21 Start time: 11:55 Status: Acute Assessment and plan: patient is already on Senna, docusate and miralax. Will order magnesium citrate for in the a.m. Given relastor yesterday, no BM Sennakot changed to BID, passing flatus. Qualifiers: Constipation type: drug induced constipation Qualified Code(s): K59.03 - Drug induced constipation (10) DVT prophylaxis: Start date: 04/27/21 Start time: 11:56 Status: Acute Assessment and plan: Heparin gtt (11) Discharge planning issues: Start date: 04/27/21 Start time: :56 Status: Acute Assessment and plan: home when medically ready discussed with Dr. Morris Subjective Subjective Patient reports: other Interval history since last seen: No c/o pain, concerns about having less than 70% of his pancreas. We discussed that he will need to maintain a low fat diet the rest of his life, what the pancreas does, how it secretes insulin, he will most likely need to be permanently on insulin, he was in denial about this stating if he follows a low fat diet and does really well once the infection clears maybe he won't need insulin. Discussed improvement in numbers, however he did have a break through fever 04/25 of 38.2 repeat blood cultures done. On right forearm there is a concern for another thrombus from an IV, currently on heparin drip. He will need to follow up with hematology as an outpatient. Per previous provider note [facility] [place] [place] recommending repeat necrosectomy in about 3 [address] discussion was with Dr. Del Valle he recommends continued antibiotic treatment until the patient is seen in follow-up. . Exam Narrative Exam Narrative: Middle age white male lying in bed Lungs: clear Heart: RRR Abdomen: soft, minimal tenderness w/ palpation over the LUQ, epigastrium. active bowel sounds, 3 suture lines approximated and intact. LUE with erythema extending from wrist to below elbow. painful swelling im proving from yesterday. Objective Last Vital Signs Temp 36.7 C 04/27/21 09:16 Pulse 79 04/27/21 09:16 Resp 19 04/27/21 09:16 BP 124/70 04/27/21 09:16 Pulse Ox 98 04/27/21 09:16 Laboratory Results - last 24 hr 04/26/21 04/26/21 04/27/21 16:00 19:22 05:08 WBC RBC Hgb Hct MCV MCH MCHC RDW Plt Count MPV Immature Gran % Neutrophils % Lymphocytes % Monocytes % Eosinophils % Basophils % Nucleated RBC % Absolute Neutrophils Absolute Lymphocytes Absolute Monocytes Absolute Eosinophils Absolute Basophils APTT 30.8 H D 34.0 H Sodium Potassium Chloride Carbon Dioxide Anion Gap BUN Creatinine Estimated GFR/1.73 m2 Glucose Calcium Magnesium Total Bilirubin Conjugated Bilirubin AST ALT Alkaline Phosphatase Troponin I < 0.05 C-Reactive Protein Total Protein Albumin Procalcitonin 04/27/21 04/27/21 04/27/21 05:08 05:08 05:08 WBC 8.19 RBC 3.04 L Hgb 9.4 L Hct 28.2 L MCV 92.8 MCH 30.9 MCHC 33.3 RDW 14.4 H Plt Count 171 MPV 11.0 Immature Gran % 0.6 Neutrophils % 77.6 Lymphocytes % 13.3 Monocytes % 6.2 Eosinophils % 1.8 Basophils % 0.5 Nucleated RBC % 0 Absolute Neutrophils 6.35 Absolute Lymphocytes 1.09 L Absolute Monocytes 0.51 Absolute Eosinophils 0.15 Absolute Basophils 0.04 APTT Sodium 140 Potassium 3.6 Chloride 107 Carbon Dioxide 23.9 Anion Gap 9.1 BUN 13 Creatinine 0.7 Estimated GFR/1.73 m2 >= 60.00 Glucose 107 H Calcium 7.9 L Magnesium 1.9 Total Bilirubin 0.4 Conjugated Bilirubin 0.1 AST 19 ALT 25 Alkaline Phosphatase 57 Troponin I C-Reactive Protein 8.17 H Total Protein 5.9 L Albumin 2.3 L Procalcitonin 0.2
[2021-04-27 12:20] LABS: PTT Activated 31.6 sec (21.0-27.5)
[2021-04-27 16:17] VITALS: BP 116/71; PULSE 82; RESP 18; TEMP 36.8; O2SAT 97
[2021-04-27 19:42] LABS: PTT Activated 39.7 sec (21.0-27.5)
[2021-04-27] MEDS: Normal Saline Flush 10 ML SYR IVP (21:18)
[2021-04-27 21:28] VITALS: BP 130/73; PULSE 81; RESP 20; TEMP 36.1; O2SAT 97
[2021-04-27] MEDS: Normal Saline 500 ML 30 ML IV (21:29)
[2021-04-27 23:55] VITALS: BP 115/70; PULSE 81; RESP 20; TEMP 36.7; O2SAT 96
[2021-04-28 02:52] LABS: PTT Activated 52.6 sec (21.0-27.5)
[2021-04-28] MEDS: MEROPENEM 1 GM in Normal Saline 100 ML IVPB ×3 (03:58→20:15)
[2021-04-28 05:22] LABS: Abs Immature Grans 0.04 10^3/uL (0.0-0.06); Absolute Basophil Count 0.05 10^3/uL (0.0-0.2); Absolute Eosinophil Count 0.14 10^3/uL (0.0-0.7); Absolute Lymphocyte Count 1.21 10^3/uL (1.2-3.4); Absolute Monocyte Count 0.56 10^3/uL (0.1-0.8); Absolute Neutrophil Count 6.88 10^3/uL (1.2-6.7); Basophils % 0.6; Eosinophils % 1.6; HCT 27.9 % (40.0-50.0); Immature Grans % 0.5; Lymphocytes % 13.6; MCH 30.2 pg (27.0-33.0); MCHC 32.3 % (32.0-36.0); MCV 93.6 fL (80-95); MPV 10.7 fL (8.0-11.0); Monocytes % 6.3; Neutrophils % 77.4; Nucleated RBC 0 %; Platelet Count 177 10^3/uL (130-400); RBC 2.98 10^6/uL (4.36-5.78); RDW 14.3 % (11.8-14.1); RDW-SD 48.6 fL; WBC 8.88 10^3/uL (4.4-10.8)
[2021-04-28 05:30] LABS: Anion Gap 7.1 mmol/L (3-11); BUN 20 mg/dL (7-18); CO2 24.9 mmol/L (21.0-32.0); CREATININE 0.8 mg/dL (0.70-1.30); Calcium 7.9 mg/dL (8.5-10.1); Chloride 108 mmol/L (98-107); Glucose 121 mg/dL (74-106); Magnesium 2.2 mg/dL (1.8-2.4); Potassium 3.9 mmol/L (3.5-5.1); Sodium 140 mmol/L (136-145)
[2021-04-28 05:45] LABS: Vancomycin, Trough 24.1 ug/mL (10.0-20.0)
[2021-04-28 05:46] LABS: PTT Activated 52.9 sec (21.0-27.5)
[2021-04-28] MEDS: Protein Nutritional Supplement 16 GM 1 OUNCE PACKET PO ×3 (08:21→20:15)
[2021-04-28] MEDS: Thiamine 100 MG TAB PO (08:22)
[2021-04-28] MEDS: Senna TAB 1 TAB PO ×2 (08:22→19:59)
[2021-04-28] MEDS: Lisinopril 20 MG TAB PO (08:22)
[2021-04-28] MEDS: VANCOMYCIN/WATER (PEG) 1.25 GM/250 ML BAG IVPB ×2 (08:22→18:18)
[2021-04-28] MEDS: Spironolactone 25 MG TAB PO (08:22)
[2021-04-28] MEDS: Multivitamin TAB 1 TAB PO (08:22)
[2021-04-28] MEDS: Docusate Sodium 100 MG CAP PO ×2 (08:22→19:58)
[2021-04-28] MEDS: Folic Acid 1 MG TAB PO (08:22)
[2021-04-28] MEDS: amLODIPine 5 MG TAB PO (08:22)
[2021-04-28 08:52] VITALS: BP 135/72; PULSE 74; RESP 16; TEMP 36.5; O2SAT 96
[2021-04-28] MEDS: Normal Saline Flush 10 ML SYR IVP ×3 (10:18→16:34)
[2021-04-28] MEDS: oxyCODONE-CR 10 MG TABCR PO ×2 (11:05→21:58)
[2021-04-28] MEDS: Enoxaparin 100 MG/ML SYR 90 MG SC ×2 (11:05→21:58)
[2021-04-28] MEDS: Insulin Aspart 300 UNITS/3 ML PEN SC (11:58)
[2021-04-28] MEDS: oxyCODONE 5 MG TAB PO ×2 (13:23→18:00)
--- NOTE | 2021-04-28 14:04 | CMPROGNOTE_ITS ---
Care Management Progress Note S/O: Pancho was lying flat in bed when CM met with him. He reported he has been up independently in his room, but expresses being in pain and uncomfortable, today he stated his back was hurting as it had the last time he had pancreatitis a few months ago. His RN was reviewing available meds for pain; Alan stated to this handbook writer that he had not had to request additional medication all weekend, but that his pain had increased today. He reported talking to his mother today and shared that she was doing well. CM continues to follow. A: 56 year old male admitted to [facility] on 04/19/21 for Necrotizing Pancreatitis P: Anticipate Alan will be discharged home when medically cleared by provider via private vehicle with a friend vs. RCT. Need for new [facility] SN/PT and IV ABX is undetermined at this time. He will follow up with community providers and discharge plan of care as prescribed.
[2021-04-28 15:27] VITALS: BP 145/79; PULSE 80; RESP 18; TEMP 36.9; O2SAT 99
[2021-04-28] MEDS: LORazepam 0.5 MG TAB PO (15:28)
--- NOTE | 2021-04-28 15:41 | W.PM.PROGNOT ---
Date of Service Date of service: 04/28/21 Time of Service: 15:41 Assessment and Plan Assessment and plan (1) Necrotizing pancreatitis: Status: Acute Assessment and plan: S/p endoscopic drainage of abscess at [facility] [place] last week. Clinically better, and location and description of the back pain are not suggestive of pancreatitis to me. Tolerating a diet. Continue. Meropenem. F/u w/ [facility] [place] [facility] in 3 weeks. Unfortunately no cultures were done on the pancreatic abscess. Will discuss with GI. (2) Back pain: Status: Acute Assessment and plan: I suspect muscle spasm. Trial flexeril, heat. Will recheck CRP/bloodwork - if any sign of worsening, would repeat CT abdomen. (3) Superficial phlebitis: Status: Acute Assessment and plan: Improving. Continue vancomycin (day 3). Transition to full dose lovenox (4) Chest pain: Status: Resolved Assessment and plan: resolved ACS ruled out. PE ruled. (5) Anxiety: Status: Chronic Assessment and plan: Continue prn ativan (6) Secondary hypertension: Status: Chronic Assessment and plan: Continue home meds (7) Diabetes: Status: Chronic Assessment and plan: BGs at goal. No change in tx. 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 Qualifiers: Anemia type: unspecified type Qualified Code(s): D64.9 - Anemia, unspecified (9) Constipation: Status: Acute Assessment and plan: S/p BM yesterday. Continue bowel regimen Qualifiers: Constipation type: drug induced constipation Qualified Code(s): K59.03 - Drug induced constipation (10) DVT prophylaxis: Status: Acute Assessment and plan: Transition to full dose lovenox (11) Discharge planning issues: Status: Acute Assessment and plan: Continue to require hospitalization. Subjective Subjective Interval history since last seen: I haven't been seen by a doctor for at least 4 days! I reassured the patient that that's incorrect, and that he has been receiving care under my direction from a nurse practitioner over the weekend. The patient reports a new lower back pain that is R-sided and rising up his spine. Oxycodone 10 mg did not help. He does not think that dilaudid helps him and does not believe he has ever had morphine or fentanyl. He denies abdominal pain right now. He denies nausea. He has been tolerating a diet. He had a BM. Denies CP/SOB, but cannot quite tell me in what way his breathing feels off. He feels anxious and worries that the back pain is due to something going wrong with the pancrea. Exam Narrative Exam Narrative: General: Anxious middle-aged male who is difficult to reassure, A&Ox3 HEENT: EOMI, MMM Heart: RRR, no m/r/g Lungs: Diminished breath sounds B Abdomen: soft, nontender, nondistended Extremities: no edema BLE's, thrombophlebitis RUE with decreased erythema. Objective Last Vital Signs Temp 36.9 C 04/28/21 15:27 Pulse 80 04/28/21 15:27 Resp 18 04/28/21 15:27 BP 145/79 H 04/28/21 15:27 Pulse Ox 99 04/28/21 15:27 Laboratory Results - last 24 hr 04/27/21 04/28/21 04/28/21 19:17 02:30 05:15 WBC RBC Hgb Hct MCV MCH MCHC RDW Plt Count MPV Immature Gran % Neutrophils % Lymphocytes % Monocytes % Eosinophils % Basophils % Nucleated RBC % Absolute Neutrophils Absolute Lymphocytes Absolute Monocytes Absolute Eosinophils Absolute Basophils APTT 39.7 H D 52.6 H D Sodium Potassium Chloride Carbon Dioxide Anion Gap BUN Creatinine Estimated GFR/1.73 m2 Glucose Calcium Magnesium Vancomycin Trough 24.1 H* 04/28/21 04/28/21 04/28/21 05:15 05:15 05:15 WBC 8.88 RBC 2.98 L Hgb 9.0 L Hct 27.9 L MCV 93.6 MCH 30.2 MCHC 32.3 RDW 14.3 H Plt Count 177 MPV 10.7 Immature Gran % 0.5 Neutrophils % 77.4 Lymphocytes % 13.6 Monocytes % 6.3 Eosinophils % 1.6 Basophils % 0.6 Nucleated RBC % 0 Absolute Neutrophils 6.88 H Absolute Lymphocytes 1.21 Absolute Monocytes 0.56 Absolute Eosinophils 0.14 Absolute Basophils 0.05 APTT 52.9 H Sodium 140 Potassium 3.9 Chloride 108 H Carbon Dioxide 24.9 Anion Gap 7.1 BUN 20 H D Creatinine 0.8 Estimated GFR/1.73 m2 >= 60.00 Glucose 121 H Calcium 7.9 L Magnesium 2.2 Vancomycin Trough
[2021-04-28 16:10] LABS: Abs Immature Grans 0.03 10^3/uL (0.0-0.06); Absolute Basophil Count 0.04 10^3/uL (0.0-0.2); Absolute Eosinophil Count 0.09 10^3/uL (0.0-0.7); Absolute Lymphocyte Count 0.96 10^3/uL (1.2-3.4); Absolute Monocyte Count 0.55 10^3/uL (0.1-0.8); Absolute Neutrophil Count 7.22 10^3/uL (1.2-6.7); Basophils % 0.4; HCT 32.9 % (40.0-50.0); HGB 10.6 g/dL (13.5-17.5); Immature Grans % 0.3; Lymphocytes % 10.8; MCH 30.1 pg (27.0-33.0); MCHC 32.2 % (32.0-36.0); MCV 93.5 fL (80-95); MPV 10.9 fL (8.0-11.0); Monocytes % 6.2; Neutrophils % 81.3; Nucleated RBC 0 %; Platelet Count 239 10^3/uL (130-400); RBC 3.52 10^6/uL (4.36-5.78); RDW 14.3 % (11.8-14.1); RDW-SD 48.4 fL; WBC 8.89 10^3/uL (4.4-10.8)
[2021-04-28 16:32] LABS: ALT 33 U/L (16-63); AST 21 U/L (15-37); Albumin 2.8 g/dL (3.4-5.0); Alkaline Phosphatase 66 U/L (46-116); Anion Gap 7.5 mmol/L (3-11); BUN 20 mg/dL (7-18); Bilirubin, Direct 0.1 mg/dL (0.0-0.2); Bilirubin, Total 0.3 mg/dL (0.2-1.0); CO2 25.5 mmol/L (21.0-32.0); CREATININE 0.7 mg/dL (0.70-1.30); Calcium 8.4 mg/dL (8.5-10.1); Chloride 107 mmol/L (98-107); Glucose 135 mg/dL (74-106); Lipase 47 U/L (73-393); Sodium 140 mmol/L (136-145)
[2021-04-28] MEDS: HYDROmorphone 2 MG/ML VIAL 1 MG IVP (16:33)
[2021-04-28] MEDS: Cyclobenzaprine 10 MG TAB PO (16:57)
--- NOTE | 2021-04-28 17:36 | NUR.NOTE ---
Nursing Note: Upon receiving this patient at 1500 after shift change, patient rang and is reporting pain. Patient has been given oxy about 2 hours prior which he stated only helped for 20 minutes or so and now the pain is excruciating. LESLIE Carmichael and MD Morris notified. Patient reports it as back pain, no urinary symptoms associated with it. Patient concerned it is related to his pancreas getting worse. Patient given PRN ativan and encouraged to ambulate. MD Morris came in to do rounds, also encouraged ambulation. Discussed with him likely muscle spasms and just sore from being in a hospital bed for so long. Labs ordered by Arturo to ensure nothing concerning going on. Patient continues to complain of severe pain. Patient sitting in bed, occasional grimace, otherwise appears calm. States he is frustrated that he does not have answers to what is going on. Patient given Dilaudid as ordered. Still reporting excruciating pain but is now more in his abdomen and not his back. Again, encouraged ambulation and walking loops. As patient is still in pain, patient also given flexeril as ordered and will continue to monitor.
[2021-04-28] MEDS: diphenhydrAMINE 25 MG CAP PO (19:58)
[2021-04-28 23:20] VITALS: BP 133/75; PULSE 74; RESP 16; TEMP 36.4; O2SAT 98
--- NOTE | 2021-04-29 | DI.US_ITS ---
Exam(s) US UPPER EXTREMITY VENOUS RT EXAM: US UPPER EXTREMITY VENOUS RT CLINICAL HISTORY: Concern for thrombophlebitis. TECHNIQUE: Ultrasound examination of the right upper extremity venous system(s) is performed using g rayscale, color-flow, and spectral Doppler analysis. COMPARISON: No exams were available for comparison FINDINGS: The right internal jugular, axillary, subclavian, cephalic, brachial and median cubital veins are pat ent without evidence of thrombosis. There is thrombus seen in the right basilic vein measuring 6.3 c m in length. IMPRESSION: 1. No DVT. 2. Superficial thrombophlebitis involving the right basilic vein. DATA REPOSITORY:
[2021-04-29] MEDS: MEROPENEM 1 GM in Normal Saline 100 ML IVPB ×3 (03:52→19:56)
[2021-04-29] MEDS: VANCOMYCIN/WATER (PEG) 1.25 GM/250 ML BAG IVPB ×2 (04:28→16:38)
[2021-04-29 07:26] LABS: PTT Activated 24.9 sec (21.0-27.5)
[2021-04-29 07:48] VITALS: BP 138/72; PULSE 69; RESP 18; TEMP 36.8; O2SAT 98
[2021-04-29] MEDS: Folic Acid 1 MG TAB PO (07:54)
[2021-04-29] MEDS: amLODIPine 5 MG TAB PO (07:54)
[2021-04-29] MEDS: Spironolactone 25 MG TAB PO (07:54)
[2021-04-29] MEDS: Senna TAB 1 TAB PO ×2 (07:54→19:56)
[2021-04-29] MEDS: Lisinopril 20 MG TAB PO (07:54)
[2021-04-29] MEDS: Docusate Sodium 100 MG CAP PO ×2 (07:54→19:55)
[2021-04-29] MEDS: Thiamine 100 MG TAB PO (07:54)
[2021-04-29] MEDS: Multivitamin TAB 1 TAB PO (07:54)
[2021-04-29] MEDS: Normal Saline Flush 10 ML SYR IVP ×2 (07:57→16:39)
[2021-04-29 08:46] LABS: Anion Gap 7.2 mmol/L (3-11); BUN 18 mg/dL (7-18); C-Reactive Protein 4.32 mg/dL (0.0-0.3); CO2 24.8 mmol/L (21.0-32.0); CREATININE 0.6 mg/dL (0.70-1.30); Chloride 109 mmol/L (98-107); Glucose 89 mg/dL (74-106); Magnesium 2.1 mg/dL (1.8-2.4); Potassium 3.5 mmol/L (3.5-5.1); Sodium 141 mmol/L (136-145)
[2021-04-29] MEDS: Enoxaparin 100 MG/ML SYR 90 MG SC ×2 (09:17→22:00)
[2021-04-29] MEDS: oxyCODONE-CR 10 MG TABCR PO ×2 (09:17→22:00)
--- NOTE | 2021-04-29 09:53 | PDOC.CMPRO ---
- If Service Date Differs Date of service: 04/29/21 Time of Service: 09:53 Care Management Progress Note S/O: Alan continues to require hospitalization. Per provider, Alan will need to follow up with [facility] in 2 weeks after his procedure. CM left a message with [facility] and will help arrange appointment. Alan c/o increased back pain last night and was encouraged to ambulate often and be out of bed when he is not sleeping. CM saw patient ambulating in the [place] frequently today. CM provided support to Alan's mother Hawa over the phone today and answered her questions about meals on wheels and gave her information regarding [facility], she is already connected to the [place] [facility]. Hawa has no immediate need for food, but wanted to know more about the program. A: 56 year old male admitted to [facility] on 04/19/21 for Necrotizing Pancreatitis P: Anticipate Alan will be discharged home when medically cleared by provider via private vehicle with a friend vs. RCT. Need for new [facility] SN/PT and ABX therapy is undetermined at this time. He will follow up with community providers and discharge plan of care as prescribed. CM will continue to support discharge planning needs.
[2021-04-29 14:13] LABS: Vancomycin, Trough 19.4 ug/mL (10.0-20.0)
--- NOTE | 2021-04-29 14:36 | W.PM.PROGNOT ---
Date of Service Date of service: 04/29/21 Time of Service: 14:36 Assessment and Plan Assessment and plan (1) Necrotizing pancreatitis: Status: Acute Assessment and plan: S/p endoscopic drainage of abscess at [facility] [place]/22/21. CRP better. Tolerating a diet. Continue. Meropenem. F/u w/ [facility] in 2 weeks after his procedure, per GI notes - we are calling the clinic to arrange this. Unfortunately no cultures were done on the pancreatic abscess. Will discuss with GI or ID. (2) Back pain: Status: Resolved Assessment and plan: I suspect muscle spasm. No evidence of a worsening pancreatic process. (3) Superficial phlebitis: Status: Acute Assessment and plan: Improving on LUE, but a new area of erythema is now noted on RUE. Continue vancomycin (day 4). Continue full dose lovenox. Obtain doppler RUE. (4) Chest pain: Status: Resolved Assessment and plan: resolved ACS ruled out. PE ruled. (5) Anxiety: Status: Chronic Assessment and plan: Continue prn ativan (6) Secondary hypertension: Status: Chronic Assessment and plan: Continue home meds (7) Diabetes: Status: Chronic Assessment and plan: BGs at goal. No change in tx. 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 Qualifiers: Anemia type: unspecified type Qualified Code(s): D64.9 - Anemia, unspecified (9) Constipation: Status: Acute Assessment and plan: S/p BM yesterday. Continue bowel regimen Qualifiers: Constipation type: drug induced constipation Qualified Code(s): K59.03 - Drug induced constipation (10) DVT prophylaxis: Status: Acute Assessment and plan: Full dose lovenox (11) Discharge planning issues: Status: Acute Assessment and plan: Continue to require hospitalization. Subjective Subjective Interval history since last seen: Mr Babb states that his right sided back pain has completely resolved, but not before it migrated to his mid abdomen and his abdomen was very sensitive to touch. He has had no back pain today. He has been ambulating. He has been passing BMs and flats. His last BM was early this morning. He denies dizziness, chest pain, shortness of breath. He has not been working with IS. He pointed out a new area of redness and firmness on his right arm which he is concerned about. Exam Narrative Exam Narrative: General: Anxious middle-aged male, A&Ox3, looks comfortable HEENT: EOMI, MMM Heart: RRR, no m/r/g Lungs: Diminished breath sounds B bases Abdomen: soft, nontender, nondistended Extremities: no edema BLE's, thrombophlebitis LUE with decreased erythema within circumscribed borders; new longitudinal area of erythema/induration in medial AC fossa RUE Objective Last Vital Signs Temp 36.8 C 04/29/21 07:48 Pulse 69 04/29/21 07:48 Resp 18 04/29/21 07:48 BP 138/72 04/29/21 07:48 Pulse Ox 98 04/29/21 07:48 Laboratory Results - last 24 hr 04/28/21 04/28/21 04/29/21 16:00 16:00 06:15 WBC 8.89 RBC 3.52 L Hgb 10.6 L Hct 32.9 L MCV 93.5 MCH 30.1 MCHC 32.2 RDW 14.3 H Plt Count 239 MPV 10.9 Immature Gran % 0.3 Neutrophils % 81.3 Lymphocytes % 10.8 Monocytes % 6.2 Eosinophils % 1.0 Basophils % 0.4 Nucleated RBC % 0 Absolute Neutrophils 7.22 H Absolute Lymphocytes 0.96 L Absolute Monocytes 0.55 Absolute Eosinophils 0.09 Absolute Basophils 0.04 APTT 24.9 Sodium 140 Potassium 4.0 Chloride 107 Carbon Dioxide 25.5 Anion Gap 7.5 BUN 20 H Creatinine 0.7 Estimated GFR/1.73 m2 >= 60.00 Glucose 135 H Calcium 8.4 L Magnesium Total Bilirubin 0.3 Conjugated Bilirubin 0.1 AST 21 ALT 33 Alkaline Phosphatase 66 C-Reactive Protein 6.30 H Total Protein 7.0 Albumin 2.8 L Lipase 47 Vancomycin Trough 04/29/21 04/29/21 06:15 13:12 WBC RBC Hgb Hct MCV MCH MCHC RDW Plt Count MPV Immature Gran % Neutrophils % Lymphocytes % Monocytes % Eosinophils % Basophils % Nucleated RBC % Absolute Neutrophils Absolute Lymphocytes Absolute Monocytes Absolute Eosinophils Absolute Basophils APTT Sodium 141 Potassium 3.5 Chloride 109 H Carbon Dioxide 24.8 Anion Gap 7.2 BUN 18 Creatinine 0.6 L Estimated GFR/1.73 m2 >= 60.00 Glucose 89 Calcium 8.0 L Magnesium 2.1 Total Bilirubin Conjugated Bilirubin AST ALT Alkaline Phosphatase C-Reactive Protein 4.32 H Total Protein Albumin Lipase Vancomycin Trough 19.4
[2021-04-29] MEDS: Protein Nutritional Supplement 16 GM 1 OUNCE PACKET PO ×2 (14:43→19:56)
[2021-04-29 15:48] VITALS: BP 136/62; PULSE 66; RESP 16; TEMP 36.8; O2SAT 98
[2021-04-29] MEDS: diphenhydrAMINE 25 MG CAP PO (19:55)
[2021-04-29] MEDS: Cyclobenzaprine 10 MG TAB PO (19:56)
[2021-04-29 23:50] VITALS: BP 138/62; PULSE 68; RESP 18; TEMP 36.5; O2SAT 98
[2021-04-30] MEDS: MEROPENEM 1 GM in Normal Saline 100 ML IVPB (04:13)
[2021-04-30] MEDS: VANCOMYCIN/WATER (PEG) 1.25 GM/250 ML BAG IVPB (05:05)
[2021-04-30 07:05] LABS: Abs Immature Grans 0.04 10^3/uL (0.0-0.06); Absolute Basophil Count 0.05 10^3/uL (0.0-0.2); Absolute Lymphocyte Count 1.19 10^3/uL (1.2-3.4); Absolute Monocyte Count 0.61 10^3/uL (0.1-0.8); Absolute Neutrophil Count 6.07 10^3/uL (1.2-6.7); Basophils % 0.6; Eosinophils % 1.2; HCT 27.7 % (40.0-50.0); HGB 9.1 g/dL (13.5-17.5); Immature Grans % 0.5; Lymphocytes % 14.8; MCH 30.3 pg (27.0-33.0); MCHC 32.9 % (32.0-36.0); MCV 92.3 fL (80-95); MPV 11.4 fL (8.0-11.0); Monocytes % 7.6; Neutrophils % 75.3; Nucleated RBC 0 %; Platelet Count 191 10^3/uL (130-400); RDW 14.5 % (11.8-14.1); RDW-SD 48.6 fL; WBC 8.06 10^3/uL (4.4-10.8)
[2021-04-30 07:28] LABS: Albumin 2.4 g/dL (3.4-5.0); Alkaline Phosphatase 59 U/L (46-116); BUN 18 mg/dL (7-18); Bilirubin, Total 0.3 mg/dL (0.2-1.0); CREATININE 0.6 mg/dL (0.70-1.30); Calcium 7.9 mg/dL (8.5-10.1); Chloride 107 mmol/L (98-107); Glucose 101 mg/dL (74-106); PHOSPHORUS 3.1 mg/dL (2.6-4.7); Potassium 3.7 mmol/L (3.5-5.1); Sodium 140 mmol/L (136-145)
[2021-04-30 07:29] LABS: ALT 26 U/L (16-63); AST 15 U/L (15-37); Anion Gap 6.9 mmol/L (3-11); Bilirubin, Direct 0.1 mg/dL (0.0-0.2); C-Reactive Protein 5.34 mg/dL (0.0-0.3); CO2 26.1 mmol/L (21.0-32.0)
[2021-04-30 07:30] VITALS: BP 131/75; PULSE 74; RESP 18; TEMP 37; O2SAT 97
[2021-04-30] MEDS: Normal Saline Flush 10 ML SYR IVP (07:42)
[2021-04-30] MEDS: Spironolactone 25 MG TAB PO (07:42)
[2021-04-30] MEDS: Protein Nutritional Supplement 16 GM 1 OUNCE PACKET PO (07:42)
[2021-04-30] MEDS: Thiamine 100 MG TAB PO (07:43)
[2021-04-30] MEDS: Multivitamin TAB 1 TAB PO (07:43)
[2021-04-30] MEDS: Docusate Sodium 100 MG CAP PO (07:43)
[2021-04-30] MEDS: Lisinopril 20 MG TAB PO (07:43)
[2021-04-30] MEDS: amLODIPine 5 MG TAB PO (07:43)
[2021-04-30] MEDS: Folic Acid 1 MG TAB PO (07:43)
[2021-04-30] MEDS: Senna TAB 1 TAB PO (07:43)
[2021-04-30 07:51] LABS: Procalcitonin < 0.1 ng/mL
[2021-04-30 08:12] LABS: Ferritin 573 ng/mL (26-388)
[2021-04-30] MEDS: oxyCODONE-CR 10 MG TABCR PO (10:00)
[2021-04-30] MEDS: Enoxaparin 100 MG/ML SYR 90 MG SC (10:01)
--- NOTE | 2021-04-30 10:40 | W.PM.DS.N ---
Date of service: 04/30/21 Time of Service: 10:40 DS: Diagnosis Discharge Diagnosis (1) Necrotizing pancreatitis: Status: Acute (2) Back pain: Status: Resolved (3) Superficial phlebitis: Status: Acute (4) Chest pain: Status: Resolved (5) Anxiety: Status: Chronic (6) Secondary hypertension: Status: Chronic (7) Diabetes: Status: Chronic (8) Anemia: Status: Chronic (9) Constipation: Status: Acute (10) DVT prophylaxis: Status: Acute (11) Discharge planning issues: Status: Acute Discharge Plan Disposition Patient Disposition: HOME Condition: Stable Discharge Details Reason For Visit: Necrotizing Pancreatitis Admit Date/Time: 04/18/21 19:47 Admit Provider: Len Srivastava Attending Provider: Len Srivastava Primary Care Provider: Peña Turner Hospital Course Hospital Course: This is a 56-year-old white male with a history of hypertension secondary to hyperaldosteronism, diabetes mellitus type 2 controlled with Metformin and diet, history of casual alcohol consumption with his last drink being a glass of wine on his birthday in [birth year], history of gallstone pancreatitis causing choledocholithiasis and cholecystitis admitted February 04, 2021 to [facility] and subsequently transferred to [facility] February 04, 2021 after being intubated for acute respiratory failure and being treated for hypertensive urgency. He was treated at [facility] for his acute pancreatitis and once that calm down he subsequently was scheduled for outpatient ERCP and removal of his choledocholithiasis. That was performed summer around March 08, 2021. He has since been on a strict organic diet with intermittent fasting he says blood sugars are under excellent control. He underwent cholecystectomy March 26, 2021. He presents to emergency department this evening with acute abdominal pain nausea and biliary vomiting but no hematemesis and no hematochezia or melena. He has also had fever and chills. Onset of his symptoms were 3 days ago although the vomiting began today. Upon arrival to emergency department he was febrile to 38.6 and he was tachycardic with a heart rate of 120 bpm. He was not tachypneic on arrival. Nor was he hypoxic. Blood pressure was borderline on arrival at 100/65 and dropped to as low as 77/53 and remained marginal in the 80s over 50s. Patient received 2 L of normal saline while in the emergency department underwent CT scan of his abdomen and had routine labs checked including CBC, VBG, urinalysis, CMP, lipase, procalcitonin. CBC demonstrated leukocytosis of 18,800 and a mild anemia with hemoglobin 12.1 g. He had a left shift in his white cell count with neutrophil count of 16,300. CMP was remarkable for acute kidney injury with a BUN of 33 creatinine 1.9 and anion gap of 15.9. Glucose was 167. AST ALT alkaline phosphatase all within normal limits. Total bilirubin 0.6 and conjugated bilirubin 0.2. Lipase was normal at 215 and procalcitonin was 9.2. Urinalysis was cloudy with 30 mg/dL protein but negative for ketones moderate amount of blood with 10-20 red cells 5-10 white cells few epithelial cells moderate bacteria. Culture was sent off. CT imaging was abdomen chest and pelvis was performed with contrast. No pulmonary emboli were seen he has mild aortic atherosclerosis without aneurysm. Lungs showed mild dependent changes at the lung bases no pleural effusions. He has mild coronary artery calcifications at the LAD. No lymphadenopathy. CT of the abdomen showed mild atherosclerosis abdominal aorta without any aneurysm celiac trunk and mesenteric arteries showed no occlusion or stenosis. Renal arteries showed no occlusion or stenosis. No venous thrombosis was seen in the portal venous system. However the pancreas showed evidence of necrotizing pancreatitis with a heterogeneous surrounding fluid collection and well defined enhancing samano measuring 19.5 x 7.7 x 9.8 cm with surrounding fatty reticulation. Spleen was normal. Kidneys showed no hydronephrosis. Spine and pelvis show signs of ankylosing spondylitis. Patient is now admitted to the intensive care unit for medical treatment of necrotizing pancreatitis. In light of his elevated procalcitonin and leukocytosis and fever patient was started on broad-spectrum antibiotics with Zosyn after obtaining blood and urine cultures. Dr. Aniket Frank, emergency room attending, sent the CT scan studies to [facility] and discussed the case with general surgeon Dr. Monroe, who reviewed the case and images and advised that the patient does not require emergent surgical drainage but requires supportive medical care and if he did not improve then they would consider doing endoscopic drainage. He was sent down and back to [facility] on 04/22/21 for necrosectomy/endoscopic drainage. He required oxycodone ER 10mg BID with oxycodone immediate release prn. His diet was advanced; pancreatic enzymes utilized. [facility] planning on follow up in May. He developed superficial thrombophlebitis in the LUE, related to a a venous catheter infiltration. Venous US reading showed extensive thrombus in the cephalic vein from the level of the wrist up to above the elbow level, half way up the upper arm. Lovenox initiated. He subsequently developed a superficial thrombophlebitis in the RUE. Celebrex 200mg daily (14 days) for anti-inflammatory effect for the superficial thrombophlebitis. Follow up with PCP in 1 week or less. [facility] to schedule follow up procedure for sometime in May Home Meds and New Rx's Prescriptions: [place] 12,000-38,000 -60,000 unit Capsule,Delayed Release(Dr/Ec) 1 cap PO QMEALS Qty: 90 RF: 0 folic acid 1 mg Tablet 1 mg PO DAILY Qty: 0 RF: 0 multivitamin [Multiple Vitamins] Tablet 1 tab PO DAILY Qty: 0 RF: 0 oxycodone 5 mg Tablet 5 mg PO Q4H PRN PRNQty: 60 RF: 0 oxycodone [OxyContin] 10 mg Tablet,Oral Only,Ext.Rel.12 Hr 10 mg PO Q12H Qty: 30 RF: 0 thiamine mononitrate (vit B1) [Vitamin B-1 (mononitrate)] 100 mg Tablet 100 mg PO DAILY Qty: 0 RF: 0 celecoxib [Celebrex] 200 mg capsule 200 mg PO DAILY Qty: 14 RF: 0 Continued metformin 500 mg tablet 1,000 mg PO DAILY RF: 0 ergocalciferol (vitamin D2) [Vitamin D2] 1,250 mcg (50,000 unit) capsule 1,250 mcg PO QWEEK Qty: 12 RF: 4 spironolactone 25 mg tablet 25 mg PO DAILY Qty: 90 RF: 3 lisinopril 20 mg tablet 20 mg PO DAILY Qty: 90 RF: 3 amlodipine 5 mg tablet 5 mg PO DAILY Qty: 90 RF: 4 No Action (DME) Blood Glucose Test Strip 1 ea Miscellaneous DAILY Qty: 100 RF: 6 (DME) lancets 28 gauge misc 1 ea Miscellaneous DAILY Qty: 100 RF: 3 (DME) Blood-Glucose Meter [Blood Glucose Monitor] 1 EACH EACH 1 ea Miscellaneous BID Qty: 1 RF: 1 Discharge Instructions Instructions: Pancreatitis (GEN) Stand Alone Forms: Nursing Discharge Form Referrals: Peña Turner DO [Primary Care Provider] - (Call for a 2 week Follow up Appointment) Activity:: Activity as Tolerated Equipment/Supplies:: No Equipment Needed Diet:: Resume his usual diet Discharge Orders Discharge Orders: Discharge Order (Routine); Ordered 04/30/21 Ordered By: Tato Colón Discharge Data Discharge Date/Time-TO BE ENTERED AT DEPARTURE: 04/30/21 12:03 DS: Summary Time Spent with Patient providing and/or coordinating discharge services: Greater than 30 minutes Status at Discharge Functional status at discharge: independent ambulation Overall status at discharge: patient is progressing back to baseline Mental Status: mental status grossly normal Speech and Movement: speech and movement normal Mood: congruent mood Affect: anxious affect (mildly appearing) Exam Narrative Exam Narrative: General: Anxious middle-aged male, A&Ox3, NAD HEENT: EOMI, MMM Heart: RRR, no murmur Lungs: Diminished breath sounds B bases but clear. Abdomen: soft, nontender, nondistended Extremities: no edema BLE's, thrombophlebitis LUE with decreased erythema within circumscribed borders. The area of erythema/induration in medial AC fossa RUE has also diminished in size and intensity. Psych Mental Status: mental status grossly normal Speech and Movement: speech and movement normal Mood: congruent mood Affect: anxious affect (mildly appearing) DS: Data Vitals/I&O Vitals and I&O: Vital Signs Temperature 37.0 C 04/30/21 07:30 Temperature Source Tympanic 04/30/21 07:30 Pulse 74 04/30/21 07:30 Pulse Rhythm Regular 04/30/21 07:48 Pulse 98 H 04/20/21 06:01 Respiratory Rate 18 04/30/21 07:30 Respiratory Effort Non-Labored 04/30/21 07:48 Respiratory Depth Normal 04/30/21 07:48 Respiratory Pattern Normal 04/30/21 07:48 Blood Pressure 131/75 04/30/21 07:30 Blood Pressure Mean 83 04/20/21 06:01 Blood Pressure Position Supine 04/20/21 07:00 Pulse Oximetry 97 04/30/21 07:30 Oxygen Delivery Method Room Air 04/30/21 07:30 Oxygen Flow Rate 0 04/30/21 07:30 Pain Level 2 04/30/21 10:00 Comment 04/28/21 15:27 Intake & Output 04/29/21 04/29/21 04/30/21 11:59 23:59 11:59 Intake Total 1320 / 2140 820 / 2140 500 / 500 Balance 1320 / 2140 820 / 2140 500 / 500 Weight 86.7 kg 85.7 kg Intake: IV 350 / 800 450 / 800 100 / 100 Oral 970 / 1340 370 / 1340 400 / 400 Other: Urine Appearance Cloudy Clear Clear Comment pT said he has gone 3x this morning. Voiding Methods Toilet Toilet Data Completed and Pending Labs on day of discharge: Labs from last 24 hours 04/30/21 04/30/21 04/30/21 06:15 06:15 06:15 WBC 8.06 RBC 3.00 L Hgb 9.1 L Hct 27.7 L MCV 92.3 MCH 30.3 MCHC 32.9 RDW 14.5 H Plt Count 191 MPV 11.4 H Immature Gran % 0.5 Neutrophils % 75.3 Lymphocytes % 14.8 Monocytes % 7.6 Eosinophils % 1.2 Basophils % 0.6 Nucleated RBC % 0 Absolute Neutrophils 6.07 Absolute Lymphocytes 1.19 L Absolute Monocytes 0.61 Absolute Eosinophils 0.10 Absolute Basophils 0.05 Sodium 140 Potassium 3.7 Chloride 107 Carbon Dioxide 26.1 Anion Gap 6.9 BUN 18 Creatinine 0.6 L Estimated GFR/1.73 m2 >= 60.00 Glucose 101 Calcium 7.9 L Phosphorus 3.1 Magnesium 2.0 Ferritin 573 H Total Bilirubin 0.3 Conjugated Bilirubin 0.1 AST 15 ALT 26 Alkaline Phosphatase 59 C-Reactive Protein 5.34 H Total Protein 6.0 L Albumin 2.4 L Procalcitonin < 0.1 Vancomycin Trough 04/29/21 13:12 WBC RBC Hgb Hct MCV MCH MCHC RDW Plt Count MPV Immature Gran % Neutrophils % Lymphocytes % Monocytes % Eosinophils % Basophils % Nucleated RBC % Absolute Neutrophils Absolute Lymphocytes Absolute Monocytes Absolute Eosinophils Absolute Basophils Sodium Potassium Chloride Carbon Dioxide Anion Gap BUN Creatinine Estimated GFR/1.73 m2 Glucose Calcium Phosphorus Magnesium Ferritin Total Bilirubin Conjugated Bilirubin AST ALT Alkaline Phosphatase C-Reactive Protein Total Protein Albumin Procalcitonin Vancomycin Trough 19.4 Preliminary micro results at discharge 11/06/21 10:35 Blood Culture - Preliminary Blood NO GROWTH 72 HOURS 04/26/21 10:25 Blood Culture - Preliminary Blood NO GROWTH 72 HOURS [facility] Medical History Diabetes Diverticulosis 07/31 COLONOSCOPY: PANDIVERTICULOSIS 01/14/16-[facility] Essential hypertension (05/07/15) possible aldosteronism. See [facility] notes avoid diuretics Kidney stones 1999 Rotator cuff injury Left shoulder diffuse rotator cuff tear, repaired at [facility] 2009, some residual motion loss. 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 Surgical History H/O colonoscopy Previous back surgery Rotator Cuff Repair 2010 LEFT Family History Mother Hyperlipidemia Diabetes Father Diabetes Hypertension Brother No problems noted. Brother No problems noted. Son Depression Daughter No problems noted. Social History Smoking/Tobacco Use Status: Never Smoking risk assessment performed?: Yes Alcohol Intake: current Alcohol Intake frequency: holidays/special occasions only Substance use type: does not use Caregiver/Support person: No Household members: family Housing: house Communication Needs: None Pets and animals: Yes Pets and animals: cat(s) and dog(s) Sexually active: Yes Current gender identity: male What is your relationship status?: How often do you talk on the phone with friends or family?: three or more times per week How often do you get together with friends or relatives?: once per week How often do you attend yarsani or hinduism services?: decline to answer Do you belong to any clubs or organized social groups?: no Panel score (0-1 are the most socially isolated patients): 1 What type of physical activity do you participate in: walking Duration: 15-30 minutes/day Cyndi/Bahai: Holiness Special cyndi needs: No Seatbelt use: always Drive intox or ride w/intox otr owner operator truck driver: No Do you feel safe in your relationship?: Yes
--- NOTE | 2021-04-30 11:49 | CMDISCH_ITS ---
- If Service Date Differs Date of service: 04/30/21 Time of Service: 11:50 LACE Index Scoring Tool - Questions: Length of Stay (in days): 7 - 13 Acuity (Admit via E.D.?): Yes Comorbidities: Diabetes w/o Complication E.D. Visits: 2 - Answers: Total Score: 11 Risk of Readmission: High Risk Care Management Discharge Reason for Hospitalization: Necrotizing Pancreatitis Discharge Plan: Discharge home with no [facility] services via RCT arranged by EMILI. Will follow up with PCP and [facility] (per discharging provider [facility] will outreach to patient directly.) EMILI spoke with Carli at [facility] and requested a hospital discharge follow up appointment. Carli will call patient to schedule. Patient/Family Education Needs: Review discharge instructions and plan to follow up with community providers. ask me three. Services Needed at Discharge: Transportation (Via RCT arranged by EMILI)
== END 2021-04-30 12:03 | disposition home or self-care (01) | DRG 438 ==
LOC: ER 20:13 → ICU 22:21 → MS 04-20 14:08
PROVIDERS: Family Medicine; Internal Medicine; Nurse Practitioner Family; Admitting Provider Internal Medicine; Emergency Provider Emergency Medicine; PCP Emergency Medicine; Visit Provider Internal Medicine
DX: K85.91 Acute pancreatitis with uninfected necrosis, unspecified (principal); N17.0 Acute kidney failure with tubular necrosis; R65.20 Severe sepsis without septic shock; T80.1XXA Vascular complications following infusion, transfusion and therapeutic injection, initial encounter; L03.114 Cellulitis of left upper limb; I82.612 Acute embolism and thrombosis of superficial veins of left upper extremity; E11.9 Type 2 diabetes mellitus without complications; Z79.84 Long term (current) use of oral hypoglycemic drugs; Z20.822 Contact with and (suspected) exposure to COVID-19; I80.8 Phlebitis and thrombophlebitis of other sites; D50.0 Iron deficiency anemia secondary to blood loss (chronic); K59.03 Drug induced constipation; F41.9 Anxiety disorder, unspecified; R07.89 Other chest pain; M54.9 Dorsalgia, unspecified; E26.9 Hyperaldosteronism, unspecified; I15.2 Hypertension secondary to endocrine disorders
CPT/HCPCS: 36410; 36415; 48999; 71275; 74177; 80048; 80053; 80076; 82805; 83690; 84145; 85384; 86850; 86900; 86901; 87040; 87635; 96361; 96365; 96366; 96368; 96375; 96376; 99285; 80202; 80320; 81003; 81015; 82248; 82270; 82607; 82728; 82746; 83540; 83550; 83605; 83615; 83735; 84100; 84132; 84484; 85025; 85379; 85610; 85730; 86140; 87086; 93971; 99223; 99232; 99233; 99239; 99291; A0425; A0426; J0131; J1650; J1756; J2405; J2540; J2543; J3490

== ENCOUNTER 2021-05-08 02:03 | Outpatient (CLI) | payer MEDICAID, SELFPAY ==
[2021-05-08 12:43] LABS: HCT 37.6 % (40.0-50.0); HGB 12.4 g/dL (13.5-17.5); MCH 30.8 pg (27.0-33.0); MCV 93.5 fL (80-95); Platelet Count 213 10^3/uL (130-400); RBC 4.02 10^6/uL (4.36-5.78); RDW 14.4 % (11.8-14.1); WBC 8.63 10^3/uL (4.4-10.8)
[2021-05-08 12:55] LABS: Iron 87 ug/dL (65-175); Total Iron Binding Capacity 253 ug/dL (250-450); Transferrin Sat 34 % (20-55)
[2021-05-08 13:23] LABS: ALT 26 U/L (16-63); AST 13 U/L (15-37); Albumin 3.5 g/dL (3.4-5.0); Alkaline Phosphatase 71 U/L (46-116); Anion Gap 13.1 mmol/L (3-11); BUN 27 mg/dL (7-18); Bilirubin, Total 0.4 mg/dL (0.2-1.0); CO2 25.9 mmol/L (21.0-32.0); Calcium 9.1 mg/dL (8.5-10.1); Chloride 105 mmol/L (98-107); Ferritin 532 ng/mL (26-388); Glucose 116 mg/dL (74-106); Lipase 51 U/L (73-393); Potassium 4.2 mmol/L (3.5-5.1); Sodium 144 mmol/L (136-145); Total Protein 7.4 g/dL (6.4-8.2)
== END 2021-05-08 02:04 | disposition home or self-care (01) ==
PROVIDERS: PCP Emergency Medicine; Visit Provider Family Medicine
DX: I10 Essential (primary) hypertension (principal); K85.91 Acute pancreatitis with uninfected necrosis, unspecified
CPT/HCPCS: 36415; 80053; 83690; 85027; 82728; 83540; 83550

== ENCOUNTER 2021-05-21 09:38 | Outpatient (REF) | payer MEDICAID, SELFPAY ==
[2021-05-21 18:52] LABS: ALT 20 U/L (16-63); AST 13 U/L (15-37); Albumin 3.8 g/dL (3.4-5.0); Alkaline Phosphatase 80 U/L (46-116); Anion Gap 15.3 mmol/L (3-11); BUN 20 mg/dL (7-18); Bilirubin, Total 0.5 mg/dL (0.2-1.0); CO2 21.7 mmol/L (21.0-32.0); CREATININE 0.9 mg/dL (0.70-1.30); Calcium 9.1 mg/dL (8.5-10.1); Chloride 105 mmol/L (98-107); Glucose 102 mg/dL (74-106); Lipase 116 U/L (73-393); Potassium 3.8 mmol/L (3.5-5.1); Sodium 142 mmol/L (136-145); Total Protein 7.1 g/dL (6.4-8.2)
[2021-05-21 18:55] LABS: Abs Immature Grans 0.03 10^3/uL (0.0-0.06); Absolute Basophil Count 0.06 10^3/uL (0.0-0.2); Absolute Eosinophil Count 0.12 10^3/uL (0.0-0.7); Absolute Lymphocyte Count 1.55 10^3/uL (1.2-3.4); Absolute Monocyte Count 0.65 10^3/uL (0.1-0.8); Absolute Neutrophil Count 9.64 10^3/uL (1.2-6.7); Basophils % 0.5; Immature Grans % 0.2; Lymphocytes % 12.9; MCH 29.8 pg (27.0-33.0); MCHC 32.4 % (32.0-36.0); MCV 92.1 fL (80-95); MPV 11.9 fL (8.0-11.0); Monocytes % 5.4; Nucleated RBC 0 %; Platelet Count 195 10^3/uL (130-400); RBC 3.69 10^6/uL (4.36-5.78); RDW 14.8 % (11.8-14.1); RDW-SD 49.4 fL; WBC 12.05 10^3/uL (4.4-10.8)
== END 2021-05-21 09:39 | disposition home or self-care (01) ==
LOC: LBN 09:38
PROVIDERS: PCP Emergency Medicine; Visit Provider Family Medicine
DX: K85.91 Acute pancreatitis with uninfected necrosis, unspecified (principal); R10.9 Unspecified abdominal pain; I10 Essential (primary) hypertension
CPT/HCPCS: 80053; 83690; 85025

== ENCOUNTER 2021-08-13 17:26 | Emergency (ER) | payer MEDICAID, SELFPAY ==
--- NOTE | 2021-08-13 17:30 | DI.RAD_ITS ---
Exam(s) XR FOREARM LT EXAM: XR FOREARM LT CLINICAL HISTORY: fall on ice, wrist and forearm pain. TECHNIQUE: 2D digital imaging was performed. COMPARISON: No exams were available for comparison FINDINGS: No evidence of fracture nor dislocation. No swelling of the olecranon bursa. No elbow joint fractur e. No radiopaque foreign body. IMPRESSION: No fracture evident DATA REPOSITORY: RADIATION DOSE DELIVERED:
--- NOTE | 2021-08-13 17:30 | DI.RAD_ITS ---
Exam(s) XR WRIST LT COMPLETE EXAM: XR WRIST LT COMPLETE CLINICAL HISTORY: fall on ice, wrist and forearm pain. TECHNIQUE: 2D digital imaging was performed. COMPARISON: No exams were available for comparison FINDINGS: There is no evidence of fracture or dislocation. No significant ulnar variance. Scaphoid intact. IMPRESSION: No fracture evident. DATA REPOSITORY: RADIATION DOSE DELIVERED:
[2021-08-13 17:31] VITALS: BP 163/80; PULSE 71; RESP 16; TEMP 36.7; O2SAT 99
--- NOTE | 2021-08-13 17:47 | ED.GENADUL_ITS ---
Discharge Plan Disposition Patient Disposition: HOME Condition: Improving Discharge Details Clinical Impression: Pain in wrist Primary Care Provider: Javed Gordon ED Provider: Tato Tinajero Home Meds and New Rx's Prescriptions: Continued spironolactone 25 mg tablet 25 mg PO DAILY Qty: 90 3RF metformin 500 mg tablet 1,000 mg PO DAILY 0RF (DME) Blood Glucose Test Strip 1 ea Miscellaneous DAILY Qty: 100 6RF Rx Instructions: FOR ONE TOUCH ULTRA MINI METER. PT DOES NOT USE INSULIN. DIAGNOSIS CODE E11.9 (DME) lancets 28 gauge misc 1 ea Miscellaneous DAILY Qty: 100 3RF Rx Instructions: FOR ONE TOUCH ULTRA MINI METER. NO INSULIN. DIAGNOSIS CODE E11.9 ondansetron HCl 4 mg tablet 4 mg PO Q8H PRN (Reason: nausea and vomiting) Qty: 10 1RF (DME) Blood-Glucose Meter [Blood Glucose Monitor] 1 EACH EACH 1 ea Miscellaneous BID Qty: 1 1RF Rx Instructions: FOR ONE TOUCH ULTRA MINI GLUCOMETER Dx E11.9 ergocalciferol (vitamin D2) [Vitamin D2] 1,250 mcg (50,000 unit) capsule 1,250 mcg PO QWEEK Qty: 12 4RF lisinopril 20 mg tablet 20 mg PO DAILY Qty: 90 3RF celecoxib 200 mg capsule 200 mg PO DAILY 0RF Label Comments: TAKE ONE CAPSULE BY MOUTH EVERY DAY morphine 15 mg tablet extended release PO .Q12 HRS PRN0RF Label Comments: TAKE ONE TABLET BY MOUTH EVERY 12 HOURS NEEDED FOR PAIN oxycodone 5 mg tablet 5 mg PO 0RF Creon 12,000-38,000 -60,000 unit capsule,delayed release(DR/EC) PO 0RF folic acid 1 mg Tablet 1 mg PO DAILY Qty: 0 0RF multivitamin [Multiple Vitamins] Tablet 1 tab PO DAILY Qty: 0 0RF thiamine mononitrate (vit B1) [Vitamin B-1 (mononitrate)] 100 mg Tablet 100 mg PO DAILY Qty: 0 0RF Discharge Instructions Instructions: Wrist Injury (ED) Additional Instructions: Continue with ibuprofen and acetaminophen at home as needed, rest elevate and ice your upper extremity. Follow-up with orthopedic team next week for repeat examination and further treatment as needed. A universal splint has been provided to you today for comfort and protection. This can be removed during bathing. Medical Decision Making 56-year-old male presents after mechanical fall from standing falling backwards onto outstretched left hand, pain to distal radius, no deformity or ecchymosis noted, superficial abrasion to left olecranon, full range of motion at shoulder elbow and fingers, neurovascular and sensory exam left hand intact, no snuffbox tenderness, consider distal radius fracture versus contusion versus carpal metacarpal fracture dislocation versus unlikely scaphoid injury given negative snuffbox tenderness and mechanism. X-ray, analgesia, close reassessment likely home with follow-up pending results. 19: 07 patient resting comfortably no acute distress. No evidence of fracture or dislocation on x-ray of wrist or forearm. No medial or lateral humeral deformity or tenderness to palpation, full range of motion of elbow. Consider sprain versus strain versus bone bruise. We placed in universal splint given persistent subjective discomfort. Home care instruction including ice elevation and anti-inflammatory. HPI General Date/Time Provider Initiated Documentation: 08/13/21 17:33 . HPI Narrative: 56-year-old male who presents after mechanical slip and fall earlier this afternoon onto an outstretched left hand, falling backwards, denies head trauma neck or back trauma, or loss of consciousness, pain to distal wrist of the left upper extremity. Has been icing at home without relief. Related Data Home Medications Medication Instructions Recorded Confirmed metformin 500 mg tablet 1,000 mg PO DAILY tab 04/12/19 08/13/21 ergocalciferol (vitamin D2) 1,250 1,250 mcg PO QWEEK #12 cap 08/24/19 08/13/21 mcg (50,000 unit) capsule (Vitamin D2) lisinopril 20 mg tablet 20 mg PO DAILY #90 tab-cap 10/16/20 08/13/21 blood sugar diagnostic (Blood #100 strip 03/18/21 07/23/21 Glucose Test) lancets 28 gauge #100 ea 03/18/21 07/23/21 folic acid 1 mg tablet 1 mg PO DAILY #0 tab 04/30/21 08/13/21 multivitamin (Multiple Vitamins) 1 tab PO DAILY #0 tab 04/30/21 08/13/21 thiamine mononitrate (vit B1) 100 100 mg PO DAILY #0 tab 04/30/21 08/13/21 mg tablet (Vitamin B-1 (mononitrate)) spironolactone 25 mg tablet 25 mg PO DAILY #90 tab-cap 05/28/21 08/13/21 ondansetron HCl 4 mg tablet 4 mg PO Q8H PRN #10 tab 07/23/21 08/13/21 celecoxib 200 mg capsule 200 mg PO DAILY 08/13/21 08/13/21 vnacff-xzkxiesb-yotlvbc cap PO 08/13/21 12,000-38,000-60,000 unit capsule,delayed rel (Creon) morphine 15 mg tablet,extended mg PO .Q12 HRS PRN 08/13/21 release oxycodone 5 mg tablet 5 mg PO 08/13/21 Previous Rx's Medication Instructions Recorded ergocalciferol (vitamin D2) 1,250 1,250 mcg PO QWEEK #12 cap 08/23/ mcg (50,000 unit) capsule (Vitamin D2) lisinopril 20 mg tablet 20 mg PO DAILY #90 tab-cap 10/16/20 blood sugar diagnostic (Blood #100 strip 03/18/21 Glucose Test) lancets 28 gauge #100 ea 03/18/21 folic acid 1 mg tablet 1 mg PO DAILY #0 tab 04/30/21 multivitamin (Multiple Vitamins) 1 tab PO DAILY #0 tab 04/30/21 thiamine mononitrate (vit B1) 100 100 mg PO DAILY #0 tab 04/30/21 mg tablet (Vitamin B-1 (mononitrate)) spironolactone 25 mg tablet 25 mg PO DAILY #90 tab-cap 05/28/21 ondansetron HCl 4 mg tablet 4 mg PO Q8H PRN #10 tab 07/23/21 Allergies Allergy/AdvReac Type Severity Reaction Status Date / Time No Known Allergies Allergy Verified 08/13/21 17:34 General Stated Complaint: Orthopedic NICOLAS: 4 Review of Systems Narrative: Review of Systems Constitutional: negative Eyes: negative ENT: negative Cardiovascular: negative Respiratory: negative Gastrointestinal: negative : negative Musculoskeletal: Left wrist pain Skin: negative Neurologic: negative Psych: negative PFSH All Active Problems (Updated 08/13/21 @ 19:08 by Tato Tinajero MD) Pain in wrist (Acute) Chronic pain syndrome (Chronic) 05/2021-managed by [facility] medical, drug contract and V PMS queried-on prn MS Contin and as needed oxycodone-for severe abdominal pain associated with necrotizing pancreatitis Anxiety (Chronic) Superficial phlebitis (Acute) 04/2021-bilateral upper extremity associated with infiltrating IV Anemia (Chronic) 04/2021- associated with pancreatitis Necrotizing pancreatitis (Acute) 2020, Gall stone, s/p stone removal with ERCP at [facility] and subsequent chol. (03/2021 at [facility]), hospitalized X 2 with respiratory failure in 01/2021- treated at [facility], be admitted to [facility] 04/2021-necrotizing pancreatitis required drainage and debridement at [facility] Sciatica associated with disorder of lumbar spine (Acute) Depression (Chronic) Aldosteronism (Chronic 06/17/16) Tubular adenoma of colon (Acute) 08/28 COLONOSCOPY: TWO TUBULAR ADENOMAS & TWO HYPERPLASTIC POLYPS. Secondary hypertension (Chronic 11/05/17) aldosteronism. avoid diuretics Kidney stones (Chronic) 2000 Essential hypertension (Chronic 05/07/15) possible aldosteronism. See [facility] notes avoid diuretics Diabetes (Chronic) Medical History (Updated 08/13/21 @ 19:08 by Tato Tinajero MD) Rotator cuff injury Left shoulder diffuse rotator cuff tear, repaired at [facility] 2009, some residual motion loss. Schwannoma of spinal cord (05/07/15) lumbar. removed surgically Surgical History (Updated 05/07/21 @ 16:07 by Javed Gordon MD) H/O colonoscopy Previous back surgery Rotator Cuff Repair 2010 LEFT S/P cholecystectomy 03/2021- at [facility] Family History Mother Hyperlipidemia Diabetes Father Diabetes Hypertension Brother No problems noted. Brother No problems noted. Son Depression Daughter No problems noted. Social History Smoking/Tobacco Use Status: Never Smoking risk assessment performed?: Yes Alcohol Intake: former Substance use type: does not use Caregiver/Support person: No Household members: family Housing: house Communication Needs: None Pets and animals: Yes Pets and animals: cat(s) and dog(s) Sexually active: Yes Current gender identity: male What is your relationship status?: How often do you talk on the phone with friends or family?: three or more times per week How often do you get together with friends or relatives?: once per week How often do you attend synagogue or yazidism services?: decline to answer Do you belong to any clubs or organized social groups?: no Panel score (0-1 are the most socially isolated patients): 1 What type of physical activity do you participate in: walking Duration: 15-30 minutes/day Cyndi/Holiness: Mosque Special cyndi needs: No Seatbelt use: always Drive intox or ride w/intox solid waste truck driver: No Do you feel safe in your relationship?: Yes Exam Narrative Exam Narrative: Physical Examination General: alert, awake, cooperative, resting comfortably, no acute distress HEENT: normocephalic, atraumatic; PERRL, EOM intact, conjunctiva normal; no nasal discharge; moist mucous membranes, oral and pharyngeal mucosa normal, tolerating secretions Neck: supple, trachea midline; full ROM Chest: normal to inspection Respiratory: normal respiratory effort, speaking in full sentences, clear to auscultation, no wheezing, rales or rhonchi Cardiac: regular rate, regular rhythm, S1S2 intact, no murmurs rubs or gallops GI: abdomen soft, non-tender, non-distended; no palpable mass or hepatosplenomegaly Skin: no lesions, rashes or trauma appreciated Neuro: AAOx3, normal speech, moving all extremities Extremities: Left upper extremity: Range of motion of shoulder elbow and fingers intact full flexion extension, sensory exam in median radial and ulnar nerve distribution intact, good capillary refill, no snuffbox tenderness, no overt deformity or ecchymosis however pain over distal radius to palpation; small abrasion over olecranon process without deformity point tenderness or change in range of motion. Psych: Appropriate mood and affect Course Vital Signs Vital signs: Vital Signs Temperature 36.7 C 08/13/21 17:31 Pulse 71 08/13/21 17:31 Respiratory Rate 16 08/13/21 17:31 Blood Pressure 163/80 H 08/13/21 17:31 Pulse Oximetry 99 08/13/21 17:31 Temperature 36.7 C 08/13/21 17:31 Temperature Source Skin 08/13/21 17:31 Pulse 71 08/13/21 17:31 Respiratory Rate 16 08/13/21 17:31 Respiratory Effort 08/13/21 17:31 Blood Pressure 163/80 H 08/13/21 17:31 Blood Pressure Position Sitting 08/13/21 17:31 Pulse Oximetry 99 08/13/21 17:31 Pain Level 8 08/13/21 17:39
[2021-08-13] MEDS: Ondansetron O.D.T. 4 MG TABEF SL (18:18)
[2021-08-13] MEDS: oxyCODONE 5 mg/Acetaminophen 325 mg TAB 1 TAB PO (18:18)
--- NOTE | 2021-08-13 18:30 | DI.VRAD_ITS ---
PROCEDURE INFORMATION: Exam: XR Left Wrist Exam date and time: 08/13/2021 5:46 PM Age: 56 years old Clinical indication: Other: Fall on ice, pain TECHNIQUE: Imaging protocol: XR Left wrist. Views: 3 or more views. COMPARISON: US UPPER EXTREMITY VENOUS LT 04/25/2021 8:20 AM FINDINGS: Bones/joints: Normal. Soft tissues: Normal. IMPRESSION: No acute findings. Dictated and Authenticated by: Katlyn Shahid MD. Ordering:MARGOT Godwin MD
--- NOTE | 2021-08-13 18:36 | DI.VRAD_ITS ---
PROCEDURE INFORMATION: Exam: XR Left Forearm Exam date and time: 08/13/2021 5:46 PM Age: 56 years old Clinical indication: Other: Fall on ice. Pain TECHNIQUE: Imaging protocol: XR Left forearm. Views: 2 views. COMPARISON: CR XR WRIST LT COMPLETE 08/13/2021 6:14 PM FINDINGS: Bones/joints: No definite fracture. The alignment is anatomic. There is a linear region of hypodensity at the medial humeral condyle, which may represent a prominent nutrient foramen. Soft tissues: Normal. IMPRESSION: 1. No definite fracture. 2. Linear region of hypodensity at the medial humeral condyle may represent a prominent nutrient foramen. However, if there is clinical concern for fracture in this region, a humerus radiograph series may be obtained for further evaluation. Dictated and Authenticated by: Katlyn Shahid MD. Ordering:MARGOT Godwin MD
== END 2021-08-13 19:23 | disposition home or self-care (01) ==
PROVIDERS: Emergency Provider Emergency Medicine; PCP Family Medicine
DX: M25.532 Pain in left wrist (principal); W00.0XXA Fall on same level due to ice and snow, initial encounter; M79.632 Pain in left forearm
CPT/HCPCS: 29125; 99284; 73090; 73110; 99283

== ENCOUNTER 2021-09-04 03:44 | Outpatient (CLI) | payer MEDICAID, SELFPAY ==
[2021-09-04 14:38] LABS: Abs Immature Grans 0.01 10^3/uL (0.0-0.06); Absolute Basophil Count 0.04 10^3/uL (0.0-0.2); Absolute Eosinophil Count 0.94 10^3/uL (0.0-0.7); Absolute Lymphocyte Count 1.24 10^3/uL (1.2-3.4); Absolute Monocyte Count 0.37 10^3/uL (0.1-0.8); Absolute Neutrophil Count 4.02 10^3/uL (1.2-6.7); Basophils % 0.6; Eosinophils % 14.2; HCT 39.1 % (40.0-50.0); Immature Grans % 0.2; Lymphocytes % 18.7; MCH 30.8 pg (27.0-33.0); MCHC 33.2 % (32.0-36.0); MCV 92.7 fL (80-95); MPV 12.1 fL (8.0-11.0); Monocytes % 5.6; Neutrophils % 60.7; Nucleated RBC 0 %; Platelet Count 96 10^3/uL (130-400); RBC 4.22 10^6/uL (4.36-5.78); RDW 14.5 % (11.8-14.1); WBC 6.62 10^3/uL (4.4-10.8)
[2021-09-04 15:06] LABS: Diff Comment Agrees w/ Instrument; RBC Morphology Normal
[2021-09-04 15:08] LABS: Hemoglobin A1C 5.7 % (<5.7)
[2021-09-04 16:03] LABS: Microalb ug/mg Crea 17.8 ug/mg Cr
[2021-09-04 16:21] LABS: ALT 19 U/L (16-63); AST 11 U/L (15-37); Albumin 3.9 g/dL (3.4-5.0); Alkaline Phosphatase 93 U/L (46-116); Anion Gap 11.3 mmol/L (3-11); BUN 15 mg/dL (7-18); Bilirubin, Total 0.4 mg/dL (0.2-1.0); CO2 25.7 mmol/L (21.0-32.0); CREATININE 0.9 mg/dL (0.70-1.30); Calcium 8.5 mg/dL (8.5-10.1); Calculated LDL 85 mg/dL (<100); Chloride 107 mmol/L (98-107); Cholesterol 140 mg/dL (<200); Glucose 119 mg/dL (74-106); HDL Cholesterol 47 mg/dL (40-60); Potassium 3.5 mmol/L (3.5-5.1); Sodium 144 mmol/L (136-145); TSH 1.25 uIU/mL (0.36-3.74); Triglyceride 41 mg/dL (<150)
[2021-09-04 17:18] LABS: Vitamin D 25 Total 58.1 ng/mL (30-100)
== END 2021-09-04 03:45 | disposition home or self-care (01) ==
LOC: LBO 03:45
PROVIDERS: PCP Family Medicine; Visit Provider Internal Medicine Endocrinology, Diabetes & Metabolism
DX: E11.9 Type 2 diabetes mellitus without complications (principal); E55.9 Vitamin D deficiency, unspecified; E78.5 Hyperlipidemia, unspecified; R53.83 Other fatigue
CPT/HCPCS: 36415; 80053; 80061; 82306; 82043; 82570; 83036; 84443; 85025

== ENCOUNTER 2021-10-13 04:54 | Outpatient (CLI) | payer MEDICAID, SELFPAY ==
[2021-10-13 12:24] LABS: HCT 40.9 % (40.0-50.0); HGB 13.5 g/dL (13.5-17.5); MCH 30.1 pg (27.0-33.0); MCV 91.1 fL (80-95); MPV 11.6 fL (8.0-11.0); Platelet Count 104 10^3/uL (130-400); RBC 4.49 10^6/uL (4.36-5.78); RDW 13.9 % (11.8-14.1); RDW-SD 47.4 fL; WBC 5.47 10^3/uL (4.4-10.8)
[2021-10-13 12:32] LABS: ALT 15 U/L (16-63); AST 13 U/L (15-37); Albumin 3.9 g/dL (3.4-5.0); Alkaline Phosphatase 78 U/L (46-116); Anion Gap 8.2 mmol/L (3-11); BUN 24 mg/dL (7-18); Bilirubin, Total 0.6 mg/dL (0.2-1.0); CO2 25.8 mmol/L (21.0-32.0); CREATININE 0.9 mg/dL (0.70-1.30); Calcium 8.4 mg/dL (8.5-10.1); Chloride 108 mmol/L (98-107); Glucose 115 mg/dL (74-106); Lipase 131 U/L (73-393); Potassium 3.4 mmol/L (3.5-5.1); Sodium 142 mmol/L (136-145)
[2021-10-13 12:38] LABS: Hemoglobin A1C 6.3 % (<5.7)
== END 2021-10-13 04:55 | disposition home or self-care (01) ==
PROVIDERS: PCP Family Medicine; Visit Provider Family Medicine
DX: I10 Essential (primary) hypertension (principal); D64.9 Anemia, unspecified; E11.9 Type 2 diabetes mellitus without complications; K85.91 Acute pancreatitis with uninfected necrosis, unspecified
CPT/HCPCS: 36415; 80053; 83690; 85027; 83036

== ENCOUNTER 2022-04-21 03:53 | Outpatient (CLI) | payer MEDICAID, SELFPAY ==
[2022-04-21 13:38] LABS: HCT 41.8 % (40.0-50.0); HGB 14.3 g/dL (13.5-17.5); MCH 31.9 pg (27.0-33.0); MCHC 34.2 % (32.0-36.0); MCV 93 fL (80-95); MPV 11.2 fL (8.0-11.0); Platelet Count 109 10^3/uL (130-400); RBC 4.48 10^6/uL (4.36-5.78); RDW 12.5 % (11.8-14.1); RDW-SD 43.2 fL; WBC 7.49 10^3/uL (4.4-10.8)
[2022-04-21 14:21] LABS: Hemoglobin A1C 6.5 % (<5.7)
[2022-04-21 14:24] LABS: ALT 16 U/L (16-63); AST 13 U/L (15-37); Albumin 3.9 g/dL (3.4-5.0); Alkaline Phosphatase 103 U/L (46-116); Anion Gap 11.2 mmol/L (3-11); BUN 16 mg/dL (7-18); Bilirubin, Total 0.3 mg/dL (0.2-1.0); CO2 22.8 mmol/L (21.0-32.0); CREATININE 0.9 mg/dL (0.70-1.30); Calcium 9.1 mg/dL (8.5-10.1); Chloride 108 mmol/L (98-107); Glucose 176 mg/dL (74-106); Lipase 60 U/L (73-393); Potassium 3.9 mmol/L (3.5-5.1); Sodium 142 mmol/L (136-145); Total Protein 7.3 g/dL (6.4-8.2)
== END 2022-04-21 03:54 | disposition home or self-care (01) ==
LOC: LBO 03:55
PROVIDERS: PCP Nurse Practitioner Family; Visit Provider Family Medicine
DX: E11.9 Type 2 diabetes mellitus without complications (principal); D69.6 Thrombocytopenia, unspecified; I10 Essential (primary) hypertension; K85.91 Acute pancreatitis with uninfected necrosis, unspecified
CPT/HCPCS: 36415; 80053; 83690; 85027; 83036

== ENCOUNTER 2022-07-29 02:45 | Outpatient (CLI) | payer MEDICAID, SELFPAY ==
--- NOTE | 2022-07-29 15:15 | DI.US_ITS ---
Exam(s) US THYROID EXAM: US THYROID CLINICAL HISTORY: Lump on/next to thyroid, mass neck, R22.1. TECHNIQUE: Ultrasound thyroid performed using standard protocol. COMPARISON: No exams were available for comparison FINDINGS: ISTHMUS: 2.7 mm RIGHT LOBE: Size: 5.5 x 2.7 x 4.0 cm Echogenicity: Normal. Vascularity: Normal. Nodules: There is a 4.5 x 2.6 x 3.8 cm mixed cystic and solid hypoechoic nodule occupying most of the right lobe of the thyroid gland. The margins are smooth and no echogenic foci are seen internally. This is consistent with a TI rads level 3 nodule. LEFT LOBE: Size: 4.5 x 1.7 x 2.2 cm Echogenicity: Normal. Vascularity: Normal. Nodules: There is a 3 mm cyst in the lower pole. This is TI rads level 1. OTHER FINDINGS: Normal lymph nodes are seen in the soft tissues of the neck. IMPRESSION: 4.5 x 2.6 x 3.8 cm TI rads level 3 nodule in the right lobe corresponding to the palpable abnormality . Due to its size, FNA is recommended. DATA REPOSITORY:
== END 2022-07-29 03:05 ==
LOC: DI 02:45
PROVIDERS: PCP Nurse Practitioner Family; Visit Provider Nurse Practitioner Family
DX: R22.1 Localized swelling, mass and lump, neck (principal)
CPT/HCPCS: 76536

== ENCOUNTER 2022-08-18 01:39 | Outpatient (CLI) | payer MEDICAID, SELFPAY ==
--- NOTE | 2022-08-18 08:00 | DI.US_ITS ---
Exam(s) US NEEDLE LOCAL OTHER WO RAD EXAM: US NEEDLE LOCAL OTHER WO RAD CLINICAL HISTORY: right thyroid nodule TR3,E04.1,ULTRASOUND GUIDED BX. COMPARISON: US US THYROID from 07/29/2022 TECHNIQUE: Ultrasound guidance was provided during ultrasound-guided FNA of right thyroid nodule per formed by Dr. Ledesma. FINDINGS: Send a acquisitions reveal the FNA needle to be in satisfactory position within the nodule IMPRESSION: Successful Ultrasound-guided Localization. DATA REPOSITORY:
--- NOTE | 2022-08-18 12:50 | PAPNONF_PTH ---
PATIENT: Pancho Babb LOC: [facility] U#:[id number] AGE/SX: 57/M ROOM: RE08/18/[address]: Madeleine Starr : 1965 BED: DIS: 08/18/2022 SPEC #: [id number] RECD: 08/18/22 13:19 STATUS: JD REQ #: [id number] BASIM: 08/18/22 12:[address]: Madeleine Starr DEPT: [facility] Cytology RECD BY: Joselin Alfaro ENTERED: 08/18/22 13:20 SP TYPE: BRENT MACIAS DR: Nik Yanes, WELDING MACHINE OPERATOR G[employer]C Tissues: 1 - BODY FLUID CYTO-FINE NEEDLE ASPIRATE-UVM Procedures: BODY FLUID CYTO-FINE NEEDLE ASPIRATE-UVM Comments: [id number] (PATH FNA CONSULT) (REFRIGERATED)
--- NOTE | 2022-08-18 15:42 | W.PROCNOTE ---
Date of service: 08/18/22 Time of Service: 15:43 Procedure Note Date of procedure: 08/18/22 Procedure: Ultrasound-guided FNA, right thyroid nodule, pathology available Procedure Diagnosis: Right thyroid nodule Procedure Indications: Patient with a right-sided thyroid nodule meeting criteria for biopsy. Options were explained to the patient regarding further management. He elected to undergo the procedure. Consent was filled and signed prior to surgery. Procedure Description: The patient was positioned in a supine position with his head slightly extended. He was prepped and draped in appropriate fashion. Ultrasound was used to localize the thyroid nodule the right and then 1% lidocaine with 1/100,000 epinephrine injected in the skin and subcutaneous tissues overlying the right parotid mass. Multiple passes were made under ultrasound guidance into the thyroid nodule. Specimen was prepared for CytoLyt as slides reveal significant amounts of heme which obscured the view. 2 additional draws were made for possible Afirma. The patient tolerated procedure well. I performed the case. After ensuring adequate hemostasis, sterile dressing was applied. His vital signs remained stable. He was able to ambulate without difficulty. He will remove the bandage tonight and not replace it. He will call with any signs of infection or inflammation. He will call if he does not hear from them with regard to the results of pathology in 1 week's time. He was made aware that we were unable to confirm cellular adequacy based on slides because of the presence of heme. Hopefully the CytoLyt samples will be adequate.
== END 2022-08-18 01:59 ==
PROVIDERS: PCP Nurse Practitioner Family; Visit Provider Registered Nurse Maternal Newborn
DX: E04.1 Nontoxic single thyroid nodule (principal)
CPT/HCPCS: 10005; 76942; 88104

== ENCOUNTER 2022-10-12 08:11 | Day surgery (SDC) | payer MEDICAID, SELFPAY ==
[2022-10-12 08:20] VITALS: BP 136/97; PULSE 89; RESP 16; TEMP 36.5; O2SAT 98
[2022-10-12] MEDS: Lactated Ringers 1,000 ML 80 ML IV (08:48)
--- NOTE | 2022-10-12 09:42 | ANES.PREOP_ITS ---
General Info Date of Service Date Performed: 10/12/22 Height: 5 ft 10 in Weight: 96.8 kg Body Mass Index (BMI): 30.6 Surgical Procedure: Operation Date: 10/12/22 09:50 Proposed Procedure Side Surgeon p Xiomara Florence MD Meds Allergies and Home Medications Allergies Allergy/AdvReac Type Severity Reaction Status Date / Time No Known Allergies Allergy Verified 10/12/22 08:24 Home Medication Medication Instructions Recorded multivitamin (Multiple Vitamins 1 tab PO DAILY #0 tabs 04/30/21 tablet) ergocalciferol (vitamin D2) 1,250 1,250 mcg PO QWEEK #12 caps 09/25/21 mcg (50,000 unit) capsule (Vitamin D2) metformin 500 mg tablet 1,000 mg PO BID #360 tabs 01/23/22 blood sugar diagnostic (Blood #100 strips 02/12/22 Glucose Test strips) lancets 30 gauge (OneTouch Delica #100 ea 02/12/22 Lancets) flash glucose sensor (FreeStyle #2 ea 03/12/22 Dylan 2 Sensor kit) insulin aspart U-100 100 unit/mL 15 unit (0.15 mL) subcut TID #40.5 07/20/22 (3 mL) subcutaneous pen (Novolog mL FlexPen U-100 Insulin aspart) insulin degludec 100 unit/mL (3 22 unit (0.22 mL) subcut DAILY #20 08/19/22 mL) subcutaneous pen (Tresiba mL FlexTouch U-100 insulin) pen needle, diabetic 32 gauge x #360 ea 09/02/22 (Comfort EZ Pen Ferguson) spironolactone 25 mg tablet 25 mg PO DAILY #90 tab-caps 09/02/22 amlodipine 5 mg tablet 5 mg PO DAILY #90 tab-caps 09/03/22 lisinopril 40 mg tablet 40 mg PO DAILY #90 tab-caps 09/03/22 bisacodyl 5 mg tablet,delayed 5 mg PO ONCE colonscopy bowel prep 10/01/22 release (Dulcolax (bisacodyl)) #4 tabs polyethylene glycol 3350 17 238 g PO ONCE colonoscopy prep 10/01/22 gram/dose oral powder #238 grams Current Visit Medications: Current Medications Generic Name Dose Route Start Last Admin Trade Name Freq PRN Reason Stop Dose Admin Ringer's Solution 1,000 mls @ 80 mls/hr 10/12/22 06:00 10/12/22 08:48 IV 11/08/22 23:59 80 mls/hr INFUSION GENIE Administration IV Miscellaneous Supplies 1 each 10/12/22 06:00 Iv Access IV 11/08/22 23:59 DIRECTED GENIE Sodium Chloride 0 ml 10/12/22 06:00 Normal Saline Flush 10 Ml Syr IV 11/08/22 23:59 PRN PRN Sodium Chloride 0 ml 10/12/22 06:00 Normal Saline 10 Ml Vial IJ 11/08/22 23:59 DIRECTED PRN Sterile Water 0 ml 10/12/22 06:00 Water,Injection,Sterile 10 Ml Vial IJ 11/08/22 23:59 DIRECTED PRN PFSH Active Problems Active Problems: Problem Status Onset Code Thyroid nodule E04.1 Thrombocytopenia D69.6 Necrotizing pancreatitis K85.91 Aldosteronism 06/17/16 E26.9 Tubular adenoma of colon D12.6 Secondary hypertension 11/05/17 I15.9 Diabetes E11.9 Medical History Medical History Adrenal nodule bilat. followed by Endocrine at [facility] 2020-CT at [facility]-no masses or nodules seen Anemia 04/2021- associated with pancreatitis 09/2021- resolved, HCT-40.9 Chronic pain syndrome 07/20/22: No longer taking meds. No longer in pain, surgical intervention to pancreas. 05/2021-managed by [facility] medical, drug contract and V PMS queried- on prn MS Contin and as needed oxycodone-for severe abdominal pain associated with necrotizing pancreatitis Kidney stones 1999 Rotator cuff injury Left shoulder diffuse rotator cuff tear, repaired at [facility] 2009, some residual motion loss. Schwannoma of spinal cord (05/07/15) lumbar. 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 Superficial phlebitis 04/2021-bilateral upper extremity associated with infiltrating IV Surgical History Surgical History H/O colonoscopy Previous back surgery Rotator Cuff Repair 2010 LEFT S/P cholecystectomy 03/2021- at [facility] Tobacco Smoking/Tobacco Use Status: Never Passive smoking exposure: Yes Alcohol Alcohol Intake: current Alcohol intake frequency: a few times a week Substance Use Substance use: Rarely Substance use type: marijuana Vital Signs and Lab Results Vital Signs Most Recent Vital Signs in EMR: Most Recent Vital Signs Temp Pulse Resp BP Pulse Ox 36.5 C 89 16 136/97 H 98 10/12/22 08:20 10/12/22 08:20 10/12/22 08:20 10/12/22 08:20 10/12/22 08:20 Point of Care Results Point of Care Results: Finger Stick Blood Glucose 122 10/12/22 08:26 Lab Results Blood Type / Crossmatch: No Data to Display Complete Blood Count: No Data to Display Complete Metabolic Panel: No Data to Display Liver Function Panel: No Data to Display Coagulation Panel: No Data to Display Cardiac Panel: No Data to Display Arterial Blood Gas: No Data to Display Venous Blood Gas: No Data to Display Pancreas Panel: No Data to Display Thyroid Panel: No Data to Display Infectious Disease: No Data to Display Blood Cultures: No Data to Display Toxicology Panel: No Data to Display Imaging and Studies Imaging and Studies Study information below may be from another EMR and interpreted by another provider. Please see original notes in EMR for more complete details. EKG Summary: Exam: Resting ECG Reason for Exam: chest pain Patient Location: 05/11 Anesthesia Assessment and Plan Anesthesia History Personal History: No History of Anesthesia Complications Family History: No Family History of Anesthesia Complications Exercise Tolerance Exercise Tolerance: Metabolic Equivalents>4 Pertinent Negatives Pertinent Negatives: No Symptoms of GERD Cardiac & Pulmonary Exam Cardiac Exam: Normal S1/S2 Heart Sounds Pulmonary Exam: Clear Bilateral Breath Sounds Implantable Cardiac Device Does patient have a Pacemaker or an ICD?: No Airway Exam Known Difficult Airway: No Mallampati Class: 3 Mouth Opening: Normal (> 3cm) Thyromental Distance: Greater than 3 cm Neck Range of Motion: Full ROM Neck Circumference: Normal Teeth Condition: Normal Dentition ASA Classification ASA Score: ASA 3 Emergency Case?: No NPO Status NPO Status: NPO Clears >2 hours, Solids >8 hours Anesthesia Plan Resuscitation Status: Full Code Anesthesia Technique: General Anesthesia Airway Planned: Natural Airway Monitors Used: Standard Monitors
[2022-10-12 09:46] VITALS: BMI 30.6
--- NOTE | 2022-10-12 10:20 | BOWEL_PTH ---
PATIENT: Pancho Babb LOC: [facility] U#:[id number] AGE/SX: 57/M ROOM: RE10/12/[address]: Mike Florence : 1965 BED: DIS: 10/12/2022 SPEC #: [id number] RECD: 10/12/22 12:48 STATUS: JD REQ #: [id number] BASIM: 10/12/22 10:[address]: Mike Florence DEPT: Surgical Specimen RECD BY: Joselin Alfaro ENTERED: 10/12/22 12:49 SP TYPE: Bowel OTHR DR: Nik Yanes, HIGH SCHOOL BAND DIRECTOR Tissues: 1 - BIOPSY BOWEL 2 - BIOPSY BOWEL Procedures: GROSS AND MICRO LEVEL 4 Comments: [id number]
[2022-10-12 10:36] VITALS: BP 112/72; PULSE 76; RESP 16; TEMP 36.5; O2SAT 96
--- NOTE | 2022-10-12 10:39 | W.COLOREPORT ---
Date of service: 10/12/22 Time of Service: 10:15 Colonoscopy Report Procedure Description: Procedures performed: 1. Colonoscopy with cold forceps polypectomy x3 Preoperative diagnosis: Surveillance colonoscopy Postoperative diagnosis: Colon polyps, mild sigmoid diverticulosis Surgeon: Khang Florence Anesthesia: Fco Indication for procedure: The patient is a 57-year-old man who had a colonoscopy 13 years ago and had tubular adenomas removed. He does not have a family history of colon cancer. Findings: The terminal ileum was normal. In the proximal transverse colon, 2 small 2-3 mm flat polyps were removed with cold forceps technique. In the proximal rectum, another 3-5 mm sessile polyp was removed with cold forceps technique. There were a few, scattered diverticuli present in the sigmoid colon. No active diverticulitis. Surveillance/follow-up recommendations: 7-10 years if the polyps proved to be more tubular adenomas. If they are sessile serrated or villous by chance then a repeat in 3 years would be indicated. Complications: None Blood loss: Minimal Specimens:?? YES Quality of Prep:?? Good Procedure in detail: Written consent was obtained from the patient who was in agreement with the risks, benefits and indications of the procedure.? We went to the endoscopy suite and laid the patient in left lateral decubitus position.? Anesthesia was administered which was tolerated well.? A timeout was performed and when we are all in agreement we began the procedure. Digital rectal exam and visual examination was performed and within normal limits.? A well?lubricated colonoscope was advanced without difficulty all the way to the cecum identified by the ileocecal valve, and triangular folds and appendiceal orifice.? Ileum was briefly intubated and appeared normal. The scope was then slowly withdrawn.?? Retroflexion was performed in the rectum.? The findings/interventions are noted above. The scope was then removed and the patient tolerated the procedure well and was then taken back to the PACU in hemodynamically stable condition.
--- NOTE | 2022-10-12 10:41 | W.ANESPOSTOP ---
Postoperative Evaluation Date, Time and Location Date Performed: 10/12/22 Time Performed: 10:41 Patient Location: Day Surgery Unit Vital Signs Most Recent Imported Vital Signs: Most Recent Vital Signs Temp Pulse Resp BP Pulse Ox 36.5 C 76 16 112/72 96 10/12/22 10:36 10/12/22 10:36 10/12/22 10:36 10/12/22 10:36 10/12/22 10:36 Pain Score Most Recent Pain Score: Most Recent Pain Score Pain Level 0 10/12/22 10:36 Assessment Mental Status: Awake (Alert & Oriented to Patient Baseline) Airway and Respiratory Function: Patent airway with normal (patient baseline) respiratory exam Cardiovascular Function: Hemodynamically Stable Hydration Status: Adequately Hydrated Nausea & Vomiting: No Nausea or Vomiting Pain: Pt. Denies Any Pain Peripheral Nerve Block: Patient did not receive a nerve block
[2022-10-12 11:05] VITALS: BP 133/81; PULSE 69; RESP 16; TEMP 36.3; O2SAT 97
== END 2022-10-12 11:25 | disposition home or self-care (01) ==
PROVIDERS: PCP Nurse Practitioner Family; Visit Provider Student in an Organized Health Care Education/Training Program
PROC: 0DJD8ZZ Inspection of Lower Intestinal Tract, Via Natural or Artificial Opening Endoscopic (ICD-10-PCS; CPT 45378; principal; 2022-10-12 09:45)
DX: Z12.11 Encounter for screening for malignant neoplasm of colon (principal); Z86.010 Personal history of colon polyps; E11.9 Type 2 diabetes mellitus without complications; K57.30 Diverticulosis of large intestine without perforation or abscess without bleeding; K63.5 Polyp of colon
CPT/HCPCS: 45380; 88305

== ENCOUNTER 2023-03-24 17:25 | Emergency (ER) | payer MEDICAID, SELFPAY ==
[2023-03-24] VITALS (14 sets, daily range): BP systolic 122–188; BP diastolic 74–92; PULSE 84–101; RESP 14–29; TEMP 36.6; O2SAT 99–100
--- NOTE | 2023-03-24 18:00 | DI.RAD_ITS ---
Exam(s) XR CHEST 2V PA LATERAL EXAM: XR CHEST 2V PA LATERAL CLINICAL HISTORY: shortness of breath TECHNIQUE: 2D digital imaging was performed. COMPARISON: CT CT CHEST PE CTA from 04/26/2021 FINDINGS: Suboptimal pulmonary inflation. HEART: Normal size. Aorta: Not dilated. PULMONARY VASCULATURE: Normal. LUNGS: Clear. PLEURAL SPACE: No pleural effusion or pneumothorax. BONE:Unremarkable for age. IMPRESSION: No acute abnormality. DATA REPOSITORY: RADIATION DOSE DELIVERED:
[2023-03-24] MEDS: methylPREDNISolone SUCC 125 MG VIAL IVP (18:07)
[2023-03-24] MEDS: Famotidine 20 MG/2 ML VIAL IVP (18:07)
[2023-03-24] MEDS: Normal Saline 1,000 ML 150 ML IV (18:07)
[2023-03-24] MEDS: diphenhydrAMINE 50 MG/ML VIAL IM (18:07)
--- NOTE | 2023-03-24 18:16 | ED.GENADUL_ITS ---
Discharge Plan Disposition Patient Disposition: Home Condition: Stable Discharge Details Clinical Impression: GERD (gastroesophageal reflux disease), Allergic reaction Primary Care Provider: Nik Yanes ED Provider: Janet Singleton Home Meds and New Rx's Prescriptions: Continued insulin aspart U-100 [Novolog FlexPen U-100 Insulin] 100 unit/mL (3 mL) insulin pen 15 unit subcut TID Qty: 40.5 3RF (DME) pen needle, diabetic [Comfort EZ Pen Norman] 32 gauge x 5/32 needle See Rx Instructions .Route Qty: 360 4RF Rx Instructions: 7 times per day insulin degludec [Tresiba FlexTouch U-100] 100 unit/mL (3 mL) insulin pen 22 unit subcut DAILY Qty: 20 12RF lisinopril 40 mg tablet 40 mg PO DAILY Qty: 90 3RF amlodipine 5 mg tablet 5 mg PO DAILY Qty: 90 4RF polyethylene glycol 3350 17 gram/dose powder 238 g PO ONCE Qty: 238 0RF Patient Comments: Pt states no longer taking - ML 03/24/23 Rx Instructions: take per colonoscopy instructions bisacodyl [Dulcolax (bisacodyl)] 5 mg tablet,delayed release (DR/EC) 5 mg PO ONCE Qty: 4 0RF Patient Comments: Pt states no longer taking - ML 03/24/23 Rx Instructions: take per colonoscopy instructions (DME) Blood-Glucose Meter [Blood Glucose Monitor] 1 EACH EACH 1 ea Miscellaneous BID Qty: 1 1RF Rx Instructions: FOR ONE TOUCH ULTRA MINI GLUCOMETER Dx E11.9 metformin 500 mg tablet 1,000 mg PO BID Qty: 360 3RF (DME) Blood Glucose Test Strip 1 ea Miscellaneous DAILY Qty: 100 6RF Rx Instructions: TID (DME) lancets [OneTouch Delica Lancets] 30 gauge misc See Rx Instructions .Route Qty: 100 4RF Rx Instructions: TID (DME) FreeStyle Dylan 2 Sensor Kit See Rx Instructions .Route Qty: 2 12RF Rx Instructions: As directed spironolactone 25 mg tablet 25 mg PO DAILY Qty: 90 3RF ergocalciferol (vitamin D2) [Vitamin D2] 1,250 mcg (50,000 unit) capsule 1,250 mcg PO QWEEK Qty: 12 4RF multivitamin [Multiple Vitamins] Tablet 1 tab PO DAILY Qty: 0 0RF Patient Comments: Pt states no longer taking - ML 03/24/23 Discharge Instructions Instructions: GERD (Gastroesophageal Reflux Disease) (ED) Additional Instructions: it is thought your symptoms possibly d/t reflux. you can try omeprazole 20 mg daily for your symptoms. if you experience any difficulty breathing or worsening symptoms, call 911 or return to the ED Referrals: Nik Yanes, [employer] [Primary Care Provider] - Medical Decision Making Patient presents for evaluation after a GI reaction to ingesting deli turkey. He is managing his own secretions and airway. He is oxygenating in the high 90s on room air vital signs are stable with blood pressure of 180/90. His pulse is 100. [place] warm and dry. Breath sounds are clear bilaterally with no wheezing there is no stridor. He is burping and spitting mucus into a bag during triage. He is placed on the cardiac rehabilitation specialist for close monitoring with continuous O2 sat. IV is established she is given normal saline with methylprednisone 125 IV push Benadryl 50 mg IV push famotidine 20 mg IV push. He denies any foreign body sensation. Will obtain chest x-ray but no labs at this time continue to closely monitor in the department. Patient is given pantoprazole 40 mg IV push as he continues to feel like he is having regurgitation. He ended up vomiting a large amount of fluid with marked improvement in his symptoms. I do feel his symptoms are probably more likely due to GERD with possible esophageal stricture less likely allergic reaction. He has been oxygenating well and hemodynamically stable. He feels at his baseline right now. He is able to swallow without any difficulties with no sensation of foreign body or further regurgitation at this point. He is discharged home should follow-up outpatient with general surgery for possible upper endoscopy I will also advise omeprazole 20 mg daily while awaiting his appointment Medical Records Medical records reviewed: Yes I reviewed the patient's medical records. Imaging Data Radiologic Study: Imaging: X-Ray Radiologist's impression: Exam(s) XR CHEST 2V PA ? LATERAL EXAM:? XR CHEST 2V PA ? LATERAL CLINICAL HISTORY:? shortness of breath TECHNIQUE:? 2D digital imaging was performed. COMPARISON:? CT CT CHEST PE CTA from 04/26/2021 FINDINGS: ?Suboptimal pulmonary inflation. HEART: Normal size.? Aorta: Not dilated. PULMONARY VASCULATURE: Normal. LUNGS: Clear. ? PLEURAL SPACE: No pleural effusion or pneumothorax. BONE:Unremarkable for age.? IMPRESSION: No acute abnormality.? HPI General Mode of arrival: ambulatory . Date/Time Provider Initiated Documentation: 03/24/23 17:35 . Limitations to Documentation: no limitations . Information obtained by: patient . HPI Narrative: This is a 58-year-old male patient past medical history significant for necrotizing pancreatitis diabetes hypertension who presents to the emergency department after ingesting some honey turkey at a deli and then developing increased mucus, indigestion, feeling like his airway was going to close, excessive burping. He states once that sensation started he was vomiting the turkey. He states the symptoms have persisted. He has no itching. No shortness of breath or cough. Denies any similar history or symptoms. He did not take anything prior to arrival on arrival he is oxygenating in the high 90s on room air with no respiratory distress he is pink warm dry well-perfused. No hypotension and pulse rate around 100. He is able to talk in full sentences because dad Related Data Home Medications Medication Instructions Recorded Confirmed multivitamin (Multiple Vitamins 1 tab PO DAILY #0 tabs 04/30/21 02/25/23 tablet) metformin 500 mg tablet 1,000 mg PO BID #360 tabs 01/23/22 03/24/23 blood sugar diagnostic (Blood #100 strips 02/12/22 03/24/23 Glucose Test strips) lancets 30 gauge (OneTouch Delica #100 ea 02/12/22 03/24/23 Lancets) flash glucose sensor (FreeStyle #2 ea 03/12/22 03/24/23 Dylan 2 Sensor kit) insulin aspart U-100 100 unit/mL 15 unit (0.15 mL) subcut TID #40.5 07/20/22 03/24/23 (3 mL) subcutaneous pen (Novolog mL FlexPen U-100 Insulin aspart) insulin degludec 100 unit/mL (3 22 unit (0.22 mL) subcut DAILY #20 08/19/22 03/24/23 mL) subcutaneous pen (Tresiba mL FlexTouch U-100 insulin) pen needle, diabetic 32 gauge x #360 ea 09/02/22 03/24/23 (Comfort EZ Pen Norman) spironolactone 25 mg tablet 25 mg PO DAILY #90 tab-caps 09/02/22 03/24/23 amlodipine 5 mg tablet 5 mg PO DAILY #90 tab-caps 09/03/22 03/24/23 lisinopril 40 mg tablet 40 mg PO DAILY #90 tab-caps 09/03/22 03/24/23 bisacodyl 5 mg tablet,delayed 5 mg PO ONCE colonscopy bowel prep 10/01/22 02/25/23 release (Dulcolax (bisacodyl)) #4 tabs polyethylene glycol 3350 17 238 g PO ONCE colonoscopy prep 10/01/22 02/25/23 gram/dose oral powder #238 grams ergocalciferol (vitamin D2) 1,250 1,250 mcg PO QWEEK #12 caps 11/02/22 03/24/23 mcg (50,000 unit) capsule (Vitamin D2) Previous Rx's Medication Instructions Recorded multivitamin (Multiple Vitamins 1 tab PO DAILY #0 tabs 04/30/21 tablet) metformin 500 mg tablet 1,000 mg PO BID #360 tabs 01/23/22 blood sugar diagnostic (Blood #100 strips 02/12/22 Glucose Test strips) lancets 30 gauge (OneTouch Delica #100 ea 02/12/22 Lancets) flash glucose sensor (FreeStyle #2 ea 03/12/22 Dylan 2 Sensor kit) insulin aspart U-100 100 unit/mL 15 unit (0.15 mL) subcut TID #40.5 07/20/22 (3 mL) subcutaneous pen (Novolog mL FlexPen U-100 Insulin aspart) insulin degludec 100 unit/mL (3 22 unit (0.22 mL) subcut DAILY #20 08/19/22 mL) subcutaneous pen (Tresiba mL FlexTouch U-100 insulin) pen needle, diabetic 32 gauge x #360 ea 09/02/22 (Comfort EZ Pen Norman) spironolactone 25 mg tablet 25 mg PO DAILY #90 tab-caps 09/02/22 amlodipine 5 mg tablet 5 mg PO DAILY #90 tab-caps 09/03/22 lisinopril 40 mg tablet 40 mg PO DAILY #90 tab-caps 09/03/22 bisacodyl 5 mg tablet,delayed 5 mg PO ONCE colonscopy bowel prep 10/01/22 release (Dulcolax (bisacodyl)) #4 tabs polyethylene glycol 3350 17 238 g PO ONCE colonoscopy prep 10/01/22 gram/dose oral powder #238 grams ergocalciferol (vitamin D2) 1,250 1,250 mcg PO QWEEK #12 caps 11/02/22 mcg (50,000 unit) capsule (Vitamin D2) Allergies Allergy/AdvReac Type Severity Reaction Status Date / Time No Known Allergies Allergy Verified 03/24/23 17:33 General Stated Complaint: Allergic NICOLAS: 2 Review of Systems All systems reviewed & are unremarkable except as noted in HPI and below PFSH All Active Problems (Updated 03/24/23 @ 20:37 by Janet Singleton NP) GERD (gastroesophageal reflux disease) (Chronic) Allergic reaction (Acute) Thyroid nodule (Acute) Thrombocytopenia (Chronic) 09/2021-mild platelets-104 Necrotizing pancreatitis (Acute) 2020, Gall stone, s/p stone removal with ERCP at [facility] and subsequent chol. (03/2021 at [facility]), hospitalized X 2 with respiratory failure in 01/2021- treated at [facility], be admitted to [facility] 04/2021-necrotizing pancreatitis required drainage and debridement at [facility] 10/2021-doing well, symptoms resolved Aldosteronism (Chronic 06/17/16) Tubular adenoma of colon (Acute 09/2022) 10/12/22 Tubular adenoma, hyperplastic, repeat 7 years 08/28 COLONOSCOPY: TWO TUBULAR ADENOMAS & TWO HYPERPLASTIC POLYPS. Secondary hypertension (Chronic 11/05/17) aldosteronism. avoid diuretics Diabetes (Chronic) 08/2021- microalbuminuria Medical History Adrenal nodule bilat. followed by Endocrine at [facility] 2020-CT at [facility]-no masses or nodules seen Anemia 04/2021- associated with pancreatitis 09/2021- resolved, HCT-40.9 Chronic pain syndrome 07/20/22: No longer taking meds. No longer in pain, surgical intervention to pancreas. 05/2021-managed by [facility], drug contract and V PMS queried- on prn MS Contin and as needed oxycodone-for severe abdominal pain associated with necrotizing pancreatitis Kidney stones 1999 Rotator cuff injury Left shoulder diffuse rotator cuff tear, repaired at [facility] 2009, some residual motion loss. Schwannoma of spinal cord (05/07/15) lumbar. 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 Superficial phlebitis 04/2021-bilateral upper extremity associated with infiltrating IV Surgical History H/O colonoscopy (~09/2022) Previous back surgery Rotator Cuff Repair 2010 LEFT S/P cholecystectomy 03/2021- at [facility] Family History Mother Hyperlipidemia Diabetes Father Diabetes Hypertension Brother No problems noted. Brother No problems noted. Son Depression Daughter No problems noted. Social History Smoking/Tobacco Use Status: Never Smoking risk assessment performed?: Yes Alcohol Intake: current Alcohol Intake frequency: a few times a week Drug use: Rarely Substance use type: marijuana Caregiver/Support person: No Household members: none Housing: house Communication Needs: None Pets and animals: No Sexually active: Yes Do you think of yourself as: straight/heterosexual Current gender identity: male What is your relationship status?: refused to answer How often do you talk on the phone with friends or family?: decline to answer How often do you get together with friends or relatives?: decline to answer How often do you attend hinduism or buddhism services?: decline to answer Do you belong to any clubs or organized social groups?: decline to answer Panel score (0-1 are the most socially isolated patients): 0 What type of physical activity do you participate in: none Frequency: does not exercise Cyndi/Adventist: Yarsanism Special cyndi needs: No Seatbelt use: always Helmet use: Yes Helmet use: always Drive intox or ride w/intox driver's license reviewing officer: No Do you feel safe at home: Yes Additional Social history: lives alone Exam Const General: cooperative and acute distress mild; not respiratory Nutritional Appearance: average body habitus Orientation: alert, awake and oriented x3 HENMT Head: normal to inspection, normocephalic and atraumatic Mouth: oral mucosae normal Chest Chest: normal inspection of the chest Resp Effort & Inspection: normal respiratory effort Cardio Rate: regular rate Rhythm: regular rhythm GI Inspection: normal to inspection Palpation: soft Auscultation: normal bowel sounds Skin General skin exam: no rashes or lesions noted Neuro General: patient alert, patient awake and patient oriented x3 Motor: muscle tone normal throughout Extrem General: normal to inspection and full ROM Course Vital Signs Vital signs: Vital Signs Temperature 36.6 C 03/24/23 17:28 Pulse 101 H 03/24/23 17:28 Respiratory Rate 20 03/24/23 17:28 Blood Pressure 182/92 H 03/24/23 17:28 Pulse Oximetry 100 03/24/23 17:28 Temperature 36.6 C 03/24/23 17:28 Pulse 101 H 03/24/23 17:28 Pulse 98 H 03/24/23 17:50 Respiratory Rate 29 H 03/24/23 17:50 Respiratory Effort Normal, Non-Labored 03/24/23 17:46 Respiratory Pattern Normal 03/24/23 17:46 Blood Pressure 182/92 H 03/24/23 17:28 Pulse Oximetry 100 03/24/23 17:28 Oxygen Delivery Method Room Air 03/24/23 17:28 Oxygen Flow Rate 0 03/24/23 17:28
[2023-03-24] MEDS: Pantoprazole 40 MG VIAL IVP (19:38)
== END 2023-03-24 21:00 | disposition home or self-care (01) ==
PROVIDERS: Emergency Provider Nurse Practitioner Acute Care; PCP Nurse Practitioner Family
DX: T78.1XXA Other adverse food reactions, not elsewhere classified, initial encounter (principal); R11.10 Vomiting, unspecified; K21.9 Gastro-esophageal reflux disease without esophagitis; E11.9 Type 2 diabetes mellitus without complications; I10 Essential (primary) hypertension; Z79.4 Long term (current) use of insulin
CPT/HCPCS: 96374; 96375; 99284; 71046; 99283; J1200; J1790; J2930

== ENCOUNTER 2023-07-28 02:48 | Outpatient (CLI) | payer MEDICAID, SELFPAY ==
[2023-07-28 14:14] LABS: HCT 45.7 % (40.0-50.0); HGB 15.3 g/dL (13.5-17.5); MCH 30.4 pg (27.0-33.0); MCHC 33.5 % (32.0-36.0); MCV 91 fL (80-95); MPV 10.4 fL (8.0-11.0); Platelet Count 169 10^3/uL (130-400); RBC 5.04 10^6/uL (4.36-5.78); RDW 13.7 % (11.8-14.1); RDW-SD 45.8 fL; WBC 8.45 10^3/uL (4.4-10.8)
[2023-07-28 15:05] LABS: CREATININE 1.1 mg/dL (0.70-1.30); Calculated LDL 83 mg/dL (<100); Cholesterol 159 mg/dL (<200); Estimated GFR 77.33 (mL/min/1.73m2); HDL Cholesterol 39 mg/dL (40-60); Potassium 4.3 mmol/L (3.5-5.1); TSH (W/Ref FT4) 2.22 uIU/mL (0.36-3.74); Triglyceride 188 mg/dL (<150)
== END 2023-07-28 02:49 | disposition home or self-care (01) ==
LOC: LBO 02:48
PROVIDERS: PCP Nurse Practitioner Family; Visit Provider Nurse Practitioner Family
DX: E11.9 Type 2 diabetes mellitus without complications (principal); Z13.29 Encounter for screening for other suspected endocrine disorder; D69.6 Thrombocytopenia, unspecified
CPT/HCPCS: 36415; 80061; 85027; 82565; 84132; 84443

== ENCOUNTER → 2023-08-25 02:54 | Outpatient (CLI) | payer MEDICAID, SELFPAY ==
--- NOTE | 2023-08-25 08:00 | DI.US_ITS ---
Exam(s) US THYROID EXAM: US THYROID CLINICAL HISTORY: Benign (FNA), assess for change thyroid nodule,e04.1. TECHNIQUE: Ultrasound thyroid performed using standard protocol. COMPARISON: US US THYROID from 07/29/2022 FINDINGS: ISTHMUS: 4 mm RIGHT LOBE: Size: 5.5 x 2.6 x 3.6 cm Echogenicity: Normal. Vascularity: Normal. Nodules: 4.8 x 2.7 by 3.8 cm mostly solid, hypoechoic, smoothly marginated nodule without echogenic f oci, TR 4. This lesion was previously biopsied. LEFT LOBE: Size: 4.8 x 1.6 x 1.8 cm Echogenicity: Normal. Vascularity: Normal. Nodules: None. OTHER FINDINGS: None. IMPRESSION: No change in size or appearance of right thyroid nodule. DATA REPOSITORY:
== END ==
PROVIDERS: PCP Nurse Practitioner Family; Visit Provider Otolaryngology
DX: E04.1 Nontoxic single thyroid nodule (principal)
CPT/HCPCS: 76536

== ENCOUNTER 2024-01-19 15:11 | Outpatient (REF) | payer MEDICAID, SELFPAY ==
[2024-01-19 21:25] LABS: Microalb ug/mg Crea 8.1 ug/mg Cr
== END 2024-01-19 15:12 | disposition home or self-care (01) ==
LOC: NCHCN 15:11
PROVIDERS: PCP Nurse Practitioner Family; Visit Provider Nurse Practitioner Family
DX: E11.9 Type 2 diabetes mellitus without complications (principal)
CPT/HCPCS: 82043; 82570

== ENCOUNTER 2024-06-12 14:10 | Outpatient (CLI) | payer MEDICAID, SELFPAY ==
--- OUTSIDE RECORDS SUMMARY | 2024-06-12 14:13 | XMS_ITS | Encounter Summary ---
Author Organization [facility] Address [address] [place] [id number] Care Team Providers Care Dial Mounter Name Role Phone Unknown, Provider Primary Care Provider Unava ilable Encounter Details Date Type Department Care Team (Late st Contact Info) Description 08/19/2009 Results Only [facility] Laboratory Services - [facility] [place] [address] [place], [place] [id number] Richard Oshea MD [address] [place] [address] Social History Tobacco Use Types Packs/Day Years Used Date Smoking Tobacco: Never Assessed Sex and Gender Information Value Date Recorded Sex Assigned at Not on file Legal Sex Male 18:48 EST Gender Identity Not on file Sexual Orientation Not on file documented as of this encounter Plan of Treatment Not on file documented as of this encounter Procedures Procedure Name Priority Date/Time Associated Diagnosis Comments SURGICAL PATHOLOGY Routine 08/19/2009 0:00 EST documented in this encounter Results * SURGICAL PATHOLOGY (08/19/2009 0:00 EST) Pathology Report: SURGICAL PATHOLOGY REPORT ? Reports generated via electronic interface contain original data; ? however they are lacking the format of the original report. ? Caution should be taken when reading/interpreti ng unformatted reports. ? Name: ? LONG, AROLDO B ? Accession #: ? [id number] ? : ? 1965 (Age: 44) ??M ? Collect Date: ? 08/19/2009 ? Location: ? [facility] ? Receive Date: ? 08/19/2009 ? Provider: RICHARD WALKO MD ? Copy to: ITALO Becerra RANJEET DO ? Final Pathologic Diagnosis: ? A. ?Colon, transverse, polyps, biopsies: ? 1. ?Tubular adenomas (2). ? B. ?Colon, sigmoid, polyps, biopsies: ? 1. ?Hyperplastic polyps (2). ? Document reviewed and electronically signed by: ? Kati Rico MD ? Report ??Date: 08/21/2009 16:04 ? By the signature above, the attending physician certifies that he/she has ? personally conducted a gross and/or microscopic examination of the described ? specimens and rendered or confirmed the above diagnosis. ? Specimen(s) Received: ? A. ?Transverse colon polyp x2 ? B. ? Sigmoid polyp x2 ? Clinical History: ? Rectal bleeding ? Gross Description: ? Received in [facility]'s fixative labelled Aroldo Babb and #1 - transverse colon polyp x2 are two polypoid biopsies measuring 0.3 x 0.2 x 0.2 cm and 0.4 x 0.3 x 0.2 cm. ??The specimens are submitted intact as (A). ? Received in [facility]'s fixative labelled Aroldo Babb and #2 ??sigmoid polyp ?? x2 are two polypoid biopsies measuring 0.3 x 0.2 x 0.2 cm and 0.4 x 0.3 x 0.2 ?? cm. ??The specimens are submitted intact as (B). (Jodie Desai)/mpl ? End of Report ? [facility] 08/19/2009 08/19/2009 18: 01 EST us Richard Oshea MD PATHOLOGY ORDERABLES Final Resul t [facility] [address] [place] [address] documented in this encounter Visit Diagnoses Not on filedocumented in this encounter Care Teams Dial Mounter Relationship Specialty Start Date End Date Unknown, Provider, PCP - General 08/19/09 documented as of this encounter
--- OUTSIDE RECORDS SUMMARY | 2024-06-12 14:13 | XMS_ITS | Clinical Summary ---
Author Organization [facility] Address [address] [place] [address] Care Team Providers Care Roofing Apprentice Name Role Phone Unknown, Provider Primary Care Provider Unava ilable Social History Tobacco Use Types Packs/Day Years Used Date Smoking Tobacco: Never Assessed Sex and Gender Information Value Date Recorded Sex Assigned at Not on file Legal Sex Male 18:48 EST Gender Identity Not on file Sexual Orientation Not on file Plan of Treatment Health Maintenance Due Date Last Done Comments Hepatitis C Screen 1965 Hepatitis B Vaccine (1 of 3 - 19+ 3-dose series) 03/06 COVID-19 Vaccine ( - 2023-25 season) 2024 RSV Immunization ( o r 60+ Years) (1 - 1-dose 75+ series) 2039 [place] Care Teams Roofing Apprentice Relationship Specialty Start Date End Date Unknown, ProviderMD PCP - General 08/19/09
--- OUTSIDE RECORDS SUMMARY | 2024-06-12 14:13 | XMS_ITS | Encounter Summary ---
Author Organization [facility] Address [address] [place] [address] Care Team Providers Care [address] Shaft And Steering Post Repairer Name Role Phone Unknown, Provider Primary Care Provider Unava ilable Encounter Details Date Type Department Care Team (Late st Contact Info) Description 10/12/2022 Lab Requisition [facility] Pathology & Laboratory Medicine - [facility] [address] [place] [address] Mike Florence MD [address] [place] [phone] Encounter for other general examination Social History Tobacco Use Types Packs/Day Years [...] Priority Date/Time Associated Diagnosis Comments SURGICAL PATHOLOGY Today 10/12/2022 10 :20 EDT Encounter for other general examination documented in this encounter Results * SURGICAL PATHOLOGY (10/12/2022 10:20 EDT) Note to Patient The following pathology results have been interpreted by your pathologist and may be available to you before your health provider has had the opportunity to review them. Please allow time for your provider to receive these results and explore management options, if applicable. 10/14/2022 9:40 EDT [facility] Final Diagnosis A. COLON, TRANSVERSE POLYP(S), BIOPSIES: - Tubular adenoma. - Fragment of colonic mucosa with surface hyperplastic changes. B. RECTUM, POLYP, BIOPSY: - Hyperplastic polyp. 10/14/2022 9:40 [facility] Attestation By the signature below, the attending physician certifies that they have 1) personally conducted a gross and/or microscopic examination of the described specimen(s), and/or personally interpreted the results of laboratory testing of the described specimen(s), and 2) personally rendered or confirmed the above diagnosis. 10/14/2022 9:40 [facility] at 0940 Clinical History Colorectal polyps 10/14/2022 9:40 [facility] Gross Description A. Received in formalin labelled with proper patient identification (initials L, J) and transverse colon polyp x2 are two riojas tissue fragments, 0.3 x 0.2 x 0.1 cm and 0.6 x 0.2 x 0.1 cm. Entirely submitted in A1. B. Received in formalin labelled with proper patient identification (initials L, J) and rectal polyp is a riojas irregular tissue, 0.7 x 0.2 x 0.1 cm. Entirely submitted in B1. ANOOP ROSARIO(ASCP) 10/13/2022 7:43 10/14/2022 9:40 [facility] Performing Lab [facility] 10/14/2022 9:40 [facility] Scanned Images 10/14/2022 9:40 [facility] Tissue SPECIMEN FROM RECTUM / Unknown 10/12/2022 10:20 EDT 10/12/2022 17:59 EDT Tissue specimen (specimen) SPECIMEN FROM RECTUM / Unknown 10/12/2022 10:20 EDT 10/12/2022 17:59 EDT us Mike Florence MD PATHOLOGY ORDERABLES F inal Result [facility] [address] [place] [address] documented in this encounter Visit Diagnoses Diagnosis Encounter for other general examination documented in this encounter Care Teams Drive Shaft And Steering Post Repairer Relationship Specialty Start Date End Date Unknown, Provider, PCP - General 08/19/09 documented as of this encounter
--- OUTSIDE RECORDS SUMMARY | 2024-06-12 14:13 | XMS_ITS | Referral Summary ---
Author Organization [facility] Address [address] [place] [id number] Care Team Providers Care Graphic Design Intern Name Role Phone Unknown, Provider Primary Care Provider Unava ilable Social History Tobacco Use Types Packs/Day Years Used Date Smoking Tobacco: Never Assessed Sex and Gender Information Value Date Recorded Sex Assigned at Not on file Legal Sex Male 18:48 EST Gender Identity Not on file Sexual Orientation Not on file Plan of Treatment Not on file [place] Care Teams Graphic Design Intern Relationship Specialty Start Date End Date Unknown, Provider, PCP - General 08/19/09
--- OUTSIDE RECORDS SUMMARY | 2024-06-12 14:13 | XMS_ITS | Encounter Summary ---
Author Organization [facility] Address [address] [place] [address] Care Team Providers Care Auto Fleet Manager Name Role Phone Unknown, Provider Primary Care Provider Unava ilable Reason for Visit * (Routine) - Receiving Office to Obtain Authorization Specialty Diagnoses / Procedures Referred By Tavia herbert Referred To Contact Procedures MR OUTSIDE IMAGES BODY Unknown, Provider, Referral ID Status Reason Start Date Expiration Date Visits Requested Visits Authorized [id number] Receiving Office to Obtain Authorization 02/03/2021 1 1 Encounter Details Date Type Department Care Team (Latest Contact Info) Description 02/03/2021 19:49 EDT - 02/03/2021 23:59 EDT Hospital Encounter [facility] Secondary Reads [place] Discharge Disposition: Home or Self Care Social History Tobacco Use Types Packs/Day Years Used Date Smoking Tobacco: Never Assessed Sex and Gender Information Value Date Recorded Sex Assigned at Not on file Legal Sex Male 18:48 EST Gender Identity Not on file Sexual Orientation Not on file documented as of this encounter Discharge Disposition Disposition Code Departure Means Destination Home or Self Care documented in this encounter Plan of Treatment Not on file documented as of this encounter Procedures Procedure Name Priority Date/Time Associated Diagnosis Comments MR OUTSIDE IMAGES BODY Routine 02/03/2021 19:49 EDT documented in this encounter Results * MR OUTSIDE IMAGES BODY (02/03/2021 19:49 EDT) Narrative 02/03/2021 19:49 EDT This is a non-reportable exam. us Provider Unknown MD H[facility]IARD OTHER IMAGING ORDERABLES Final Result documented in this encounter Visit Diagnoses Not on filedocumented in this encounter Care Teams Auto Fleet Manager Relationship Specialty Start Date End Date Unknown, Provider, PCP - General 08/19/09 documented as of this encounter
--- OUTSIDE RECORDS SUMMARY | 2024-06-12 14:13 | XMS_ITS | Encounter Summary ---
Author Organization [facility] Address [address] [place] [address] Care Team Providers Care Credit Relationship Manager Name Role Phone Unknown, Provider Primary Care Provider Unava ilable Encounter Details Date Type Department Care Team (Late st Contact Info) Description 08/19/2022 Lab Requisition [facility] Pathology & Laboratory Medicine - [address] [address] Samson Ledesma MD [address] [place] [phone] Nontoxic single thyroid nodule Social History Tobacco Use Types Packs/Day Years [...] Procedure Name Priority Date/Time Associated Diagnosis Comments NON BEAD INSPECTOR/FNA CYTOLOGY Today 08/18/2022 12:50 EST Nontoxic single thyroid nodule documented in this encounter Results * NON BEAD INSPECTOR/FNA CYTOLOGY (08/18/2022 12:50 EST) Note to Patient The following pathology results have been interpreted by your pathologist and may be available to you before your health provider has had the opportunity to review them. Please allow time for your provider to receive these results and explore management options, if applicable. 08/20/2022 13:29 EST [facility] Final Diagnosis A. RIGHT THYROID NODULE, ULTRASOUND-GUIDE D FINE NEEDLE ASPIRATION: - Hypocellular specimen with features most compatible with benign follicular nodule. See comment. 08/20/2022 13:[address] [facility] Diagnosis Comment The specimen consists predominantly of blood and barely meets adequacy criteria according to the Purdys system. Rare, small groups of bland appearing follicular epithelial cells (some with mild nuclear crowding) are present as is scant thick colloid. Clinical follow up is recommended. The technical component of the specimen processing was performed at the [facility] Pathology Department, [address] [place] [address] (CLIA [id number]). The professional component of the specimen evaluation (slide review and issuing of the final diagnosis) was performed at [facility], [address] [place] [address] (CLIA License Number [id number]). 08/20/2022 13:29 [facility] Attestation By the signature below, the attending physician certifies that they have personally conducted a gross and/or microscopic examination of the described specimens and rendered or confirmed the above diagnosis. 08/20/2022 13:29 [facility] at 1329 Rapid Diagnosis A. RIGHT THYROID NODULE (4.6 CM), ULTRASOUND GUIDED FINE NEEDLE ASPIRATION: Evaluation Episode 1: Pass 1-4: Predominantly blood. Pass 5-6: To Afirma. The above rapid on site evaluation was performed by pathologist Dr. Kary Bowens assisting Dr. Orestes Ledesma at [facility], [address] [place] [id number]. 08/18/22; 12:50 AM. 08/20/2022 13:29 [facility] Clinical History 4.6cm right thyroid nodule; E04.1 08/20/2022 13:29 [facility] Gross Description A. 8 fixed prepared slides, 1 air dried prepared slides, and 1 tube of Cytolyt processed by selective cellular enhancement were received. 1 FNAprotect tube for possible Afirma testing was also received and will be held for 60 days from date of collection. 08/20/2022 13:29 [facility] Performing Lab [facility] 08/20/2022 13:29 [facility] Scanned Images 08/20/2022 13:29 [facility] Fine Needle Aspirate ENTIRE RIGHT LOBE OF THYROID GLAND / Unknown 08/18/2022 12:50 EST 08/19/2022 7:20 EST us Samson Ledesma MD PATHOLOGY ORDERABLES Final Resul t Performing Organization Address City/State/[facility] Co de Phone Number [facility] [address] [place], [place] [id number] [place] [address] LABORATORY SERVICES [address] [place] [address] documented in this encounter Visit Diagnoses Diagnosis 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
--- OUTSIDE RECORDS SUMMARY | 2024-06-12 14:14 | XMS_ITS | Encounter Summary ---
Author Organization [facility] Address [facility] [place] [address] Care Team Providers Care Order Entry Representative Name Role Phone Peña Turner DO Primary Care Provider [phone] Encounter Details Date Type Department Care Team (Latest Contact Info) Description 05/09/2021 10:09 AM EST - 05/09/2021 3:14 PM EST Hospital [place] [address] Manav Hale MD [facility] [place] [address] Discharge Disposition: Home Social History Tobacco Use Types Packs/Day Years Used Date Smoking Tobacco: Never Smokeless Tobacco: Never Comments:never vape Alcohol Use Standard Drinks/Week Comments Not Currently 0 (1 standard drink = 0.6 oz pur e alcohol) occasionally Sex and Gender Information Value Date Recorded Sex Assigned at Not on file Gender Identity Not on file Sexual Orientation Not on file documented as of this encounter Last Filed Vital Signs Vital Sign Reading Time Taken Comments Blood Pressure 106/61 05/09/2021 2:10 PM EST Pulse 98 05/09/2021 10:28 AM EST Temperature 37 ??C (98.6 ??F) 05/09/2021 10:28 AM EST Respiratory Rate 18 05/09/2021 2:10 PM EST Oxygen Saturation 98% 05/09/2021 2:10 PM EST Inhaled Oxygen Concentration - - Weight 85.7 kg (189 lb) 05/09/2021 10:28 AM EST Height 177.8 cm (5' 10) 05/09/2021 10:28 AM EST Body Mass Index 27.12 05/09/2021 10:28 AM EST documented in this encounter Discharge Instructions * Discharge Instructions* Pancho Vazquez, RN - 05/09/2021 1:27 PM EST Upper GI Endoscopy: What to Expect at Home Your Recovery You will be able to go home after your doctor or nurse checks to make sure you are not having any problems. You may have to stay overnight if you had treatment during the test. You may have a sore throat fora day or two after the test. This care sheet gives you a general idea about what to expect after the test. How can you care for yourself at home? Activity Rest when you feel tired. ?? You can do your normal activities when it feels okay to do so. Diet ?? Follow your doctor's directions for eating. ?? Unless your doctor has told you not to, drink plenty of fluids. This helps to replace the fluidsthat were lost during the prep. ?? Do not drink alcohol. Medicines ?? Your doctor will tell you if and when you can restart your medicines. He or she will also give you instructions about taking any new medicines. ?? If you take blood thinners, such as warfarin (Coumadin), clopidogrel (Plavix), or aspirin, be sure to talk to your doctor. He or she will tell you if and when to start taking those medicines again. Make sure that you understand exactly what your doctor wants you to do. ?? If polyps were removed or a biopsy was done during the test, your doctor may tell you not to take aspirin or other anti-inflammatory medicines for a few days. These include ibuprofen (Advil, Motrin) and naproxen (Aleve). ?? If you have a sore throat the day after the procedure, use an ffqb-awb-ttaoqth spray to numb your throat. Sucking on throat lozenges and gargling with warm salt water may also help relieve your symptoms. Other instructions ?? For your safety, do not drive or operate machinery until the medicine wears off and you can think clearly. Your doctor may tell you not to drive or operate machinery until the day after your test. ?? Do not sign legal documents or make major decisions until the medicine wears off and you can think clearly. The anesthesia can make it hard for you to fully understand what you are agreeing to. Additional Information for Sedation Patients For patients who received sedation: ?? You may have received medications before and/or during your procedure which effects your judgement and reaction time. ?? Do not drive, operate machinery, drink alcoholic beverages or make important decisions for 24 hours. ?? Be careful on stairs as you may be unsteady on your feet. ?? You may eat a regular diet as tolerated. ?? Do not smoke if you are alone. ?? IV site: Slight redness or tenderness is normal, you can use a warm compress if you would like. If tenderness and/or redness increase or if foul drainage occurs, please contact your Doctor. Please call [phone] before 8pm Mon-Fri with problems, questions or concerns. If you call after 8pm or on weekends, call the Hospital at [phone] and ask to speak to the Chairman Ceo area field person and the coloring machine operator will contact that person for you. When should you call for help? Call [phone] anytime you think you may need emergency care. For example, call if: ?? You passed out (lost consciousness). ?? You pass maroon or bloody stools. ?? You have trouble breathing. Call your doctor now or seek immediate medical care if: ?? You have pain that does not get better after you take pain medicine. ?? You are sick to your stomach or cannot drink fluids. ?? You have new or worse belly pain. ?? You have blood in your stools. ?? You have a fever. ?? You cannot pass stools or gas. Watch closely for changes in your health, and be sure to contact your doctor if you have any problems. Where can you learn more? [facility] View your After Visit Summary and more online at [email or web address] If you would like to provide feedback about your hospital experience, please call the Office of Patient and Family Relations at . If you have received this After Visit Summary in error, please immediately return it in person to the department, or notify the [facility] Privacy Office by calling toll free at between the hours of 8AM and 5PM to arrange for our retrieval of the documents at no cost to you. Content Version: 12.2 ?? 3259-7115 [employer]. Care instructions adapted under license by [facility]. If you have questions about a medical condition or this instruction, always ask your healthcare professional. [employer] disclaims any warranty or liability for your use of this information.Endoscopic Ultrasound (Oral): What to Expect At Home Your Recovery After you have an endoscopic ultrasound--a test to look for problems in the stomach, liver, gallbladder, and other organs--you will stay at the hospital or clinic for 1 to 2 hours. This will allow the medicine to wear off. You will be able to go home after your doctor or nurse checks to make sure you are not having any problems. You may have a sore throat for a day or two after the test. This care sheet gives you a general idea about what to expect after the test. How can you care for yourself at home? Activity ??? Rest when you feel tired. ?? You can do your normal activities when it feels okay to do so. Diet ?? Follow your doctor's directions for eating. ?? Unless your doctor has told you not to, drink plenty of fluids. ?? Do not drink alcohol. Medicines ?? Your doctor will tell you if and when you can restart your medicines. He or she will also give you instructions about taking any new medicines. ?? If you take blood thinners, such as warfarin (Coumadin), clopidogrel (Plavix), or aspirin, be sure to talk to your doctor. He or she will tell you if and when to start taking those medicines again. Make sure that you understand exactly what your doctor wants you to do. ?? If a biopsy was done during the test, your doctor may tell you not to take aspirin or other anti-inflammatory medicines for a few days. These include ibuprofen (Advil, Motrin) and naproxen (Aleve). ?? If you have a sore throat the day after the procedure, use an pslj-ifd-tpkbgba spray to numb your throat. Sucking on throat lozenges and gargling with warm salt water may also help relieve your symptoms. Other instructions ?? For your safety, do not drive or operate machinery until the medicine wears off and you can think clearly. Your doctor may tell you not to drive or operate machinery until the day after your test. ?? Do not sign legal documents or make major decisions until the medicine wears off and you can think clearly. The anesthesia can make it hard for you to fully understand what you are agreeing to. Additional Information for Sedation Patients For patients who received sedation: ?? You may have received medications before and/or during your procedure which effects your judgement and reaction time. ?? Do not drive, operate machinery, drink alcoholic beverages or make important decisions for 24 hours. ?? Be careful on stairs as you may be unsteady on your feet. ?? You may eat a regular diet as tolerated. ?? Do not smoke if you are alone. ?? IV site: Slight redness or tenderness is normal, you can use a warm compress if you would like. If tenderness and/or redness increase or if foul drainage occurs, please contact your Doctor. Please call [phone] before 8pm Mon-Fri with problems, questions or concerns. If you call after 8pm or on weekends, call the Hospital at [phone] and ask to speak to the Chairman Ceo area field person and the coloring machine operator will contact that person for you. When should you call for help? Call [phone] anytime you think you may need emergency care. For example, call if: ?? You passed out (lost consciousness). ?? You pass maroon or bloody stools. ?? You have trouble breathing. Call your doctor now or seek immediate medical care if: ?? You have pain that does not get better after you take pain medicine. ?? You are sick to your stomach or cannot drink fluids. ?? You have new or worse belly pain. ?? You have blood in your stools. ?? You have a fever. ?? You cannot pass stools or gas. Watch closely for changes in your health, and be sure to contact your doctor if you have any problems. Where can you learn more? [facility] View your After Visit Summary and more online at [email or web address] If you would like to provide feedback about your hospital experience, please call the Office of Patient and Family Relations at . If you have received this After Visit Summary in error, please immediately return it in person to the department, or notify the [facility] Privacy Office by calling toll free at between the hours of 8AM and 5PM to arrange for our retrieval of the documents at no cost to you. Content Version: 12.2 ?? 5890-6863 [employer]. Care instructions adapted under license by [facility]. If you have questions about a medical condition or this instruction, always ask your healthcare professional. [employer] disclaims any warranty or liability for your use of this information. documented in this encounter Medications at Time of Discharge Medication Sig Dispensed Refills Start Date End Date metFORMIN XR (Glucophage XR) 500 mg Tablet Sustained Release 24 hr Take 3 tablets by mouth daily. 270 tablet 3 06/24/2020 ergocalciferoL, vitamin D2, (vitamin D) 50,000 unit Capsule Take 1 capsule by mouth once a week. 13 capsule 4 06/24/2020 lisinopril (PRINIVIL;ZESTRIL) 20 mg Tablet Take 20 mg by mouth daily. morphine CR (Ms Contin) 15 mg Tablet Sustained Release TAKE 1 TABLET BY MOUTH EVERY 12 HOURS 04/30/2021 08/29/2021 amLODIPine (Norvasc) 5 mg Tablet Take 1 tablet by mouth daily. 90 tablet 3 02/16/2021 08/29/2021 oxyCODONE (Roxicodone) 5 mg Tablet Take 1 tablet by mouth every 3 hours as needed for Pain. 24 tablet 02/16/2021 08/29/2021 spironolactone (ALDACTONE) 25 mg Tablet TAKE ONE TABLET BY MOUTH TWICE A DAY 180 tablet 3 05/23/2018 08/29/2021 documented as of this encounter H&P Notes * Ryan Del Valle MD - 05/09/2021 11:38 AM EST Patient Name: Pancho Babb Patient Age: 56 y.o. Birthdate: 1965 Admit date: 05/09/2021 Attending Physician: Manav Hale MD HISTORY OF PRESENT ILLNESS Pancho Babb is a 56 y.o. who presents for EGD for necrosectomy via indwelling Axios cystgastrostomy for WOPN placed about 2 weeks ago. PROBLEM LIST Patient Active Problem List Diagnosis Code ??? Diabetes mellitus diagnosed at age 49 (A1c 6.8% in Jun 2015) E11.9 ??? Hypertension I10 ??? Obesity E66.9 ??? Hypokalemia E87.6 ??? Adrenal nodule E27.8 ??? Insulin resistance (high c-peptide 8.2 on 08/12/18 and low HDL 34) E88.81 ??? Vitamin D deficiency E55.9 ??? Gallstone pancreatitis K85.10 ??? Hypertensive crisis I16.9 MEDICATIONS No current facility-administered medications on file prior to encounter. Current Outpatient Medications on File Prior to Encounter Medication Sig Dispense Refill ??? morphine CR (Ms Contin) 15 mg Tablet Sustained Release TAKE 1 TABLET BY MOUTH EVERY 12 HOURS ??? amLODIPine (Norvasc) 5 mg Tablet Take 1 tablet by mouth daily. 90 tablet 3 ??? oxyCODONE (Roxicodone) 5 mg Tablet Take 1 tablet by mouth every 3 hours as needed for Pain. 24 tablet 0 ??? metFORMIN XR (Glucophage XR) 500 mg Tablet Sustained Release 24 hr Take 3 tablets by mouth daily. 270 tablet 3 ??? ergocalciferoL, vitamin D2, (vitamin D) 50,000 unit Capsule Take 1 capsule by mouth once a week. (Patient taking differently: Take 50,000 Units by mouth once a week. Fridays) 13 capsule 4 ??? spironolactone (ALDACTONE) 25 mg Tablet TAKE ONE TABLET BY MOUTH TWICE A DAY (Patient taking differently: 25 mg daily.) 180 tablet 3 ??? lisinopril (PRINIVIL;ZESTRIL) 20 mg Tablet Take 20 mg by mouth daily. PHYSICAL EXAM: Blood pressure 99/72, pulse 98, temperature 37 ??C (98.6 ??F), temperature source Tympanic, resp. rate 16, height 177.8 cm (5' 10), weight 85.7 kg (189 lb), SpO2 97 %. GEN: Alert, cooperative. Pleasant. In NAD MP 1 ASA 3 HEENT: No oropharyngeal lesions. Neck supple. No masses. Thyroid symmetric LUNGS: CTAB CARD: RRR without m/g/r ABD: Non-distended. Active BS. Soft. Benign. No masses. No HSM. RECENT LABS No results found for this or any previous visit (from the past 24 hour(s)). ASSESSMENT AND PLAN Pancho Babb is a 56 y.o. who presents for endoscopic evaluation. Risks extensively discussed including bleeding, infection, reaction to anesthesia, perforation, pancreatitis (if applicable), bile duct injury (if applicable), missing a cancer (if applicable) and/or other unforseen complication. Consent signed and patient well informed of the risks of the procedure. documented in this encounter Plan of Treatment Not on file documented as of this encounter Procedures Procedure Name Priority Date/Time Associated Diagnosis Comments Edg Flexible Transoral Endoscopic Stent Placement W/Wire & Dilation(97409) 05/09/2021 11:46 AM EST Pancreatic necrosis UPPER GI ENDOSCOPY Routine 05/09/2021 11 :44 AM EST documented in this encounter Results * UPPER GI ENDOSCOPY (05/09/2021 11:44 AM EST) UPPER GI ENDOSCOPY [facility] End[facility] Procedure Date: 05/09/2021 11:44 AM ? Patient Name: Pancho Babb ? Date of : 1965 ? Age: 56 ? Order #: [id number] ? Instrument Name: [id number] ? Procedure: ? Upper GI endoscopy Indications: ? Direct endoscopic necrosectomy Providers: ? Manav Hale MD, Neej J. ? Patrick Del Valle Kristin K. ? Melecio, Oven Loader Referring : ?Peña Turner, DO Medicines: ? General Anesthesia Complications: ? No immediate complications. Procedure: ? Pre-Anesthesia Assessment: ? - Prior to the procedure, a History ? and Physical was performed, and ? patient medications and allergies ? were reviewed. The patient is ? competent. The risks and benefits of ? the procedure and the sedation ? options and risks were discussed with ? the patient. All questions were ? answered and informed consent was ? obtained. Patient identification and ? proposed procedure were verified by ? the physician in the pre-procedure ? area. Mental Status Examination: ? alert and oriented. Airway ? Examination: normal oropharyngeal ? airway and neck mobility. Respiratory ? Examination: clear to auscultation. ? CV Examination: normal. Prophylactic ? Antibiotics: The patient does not ? require prophylactic antibiotics. ? Prior Anticoagulants: The patient has ? taken no previous anticoagulant or ? antiplatelet agents. ASA Grade ? Assessment: III - A patient with ? severe systemic disease. After ? reviewing the risks and benefits, the ? patient was deemed in satisfactory ? condition to undergo the procedure. ? The anesthesia plan was to use ? general anesthesia. Immediately prior ? to administration of medications, the ? patient was re-assessed for adequacy ? to receive sedatives. The heart rate, ? respiratory rate, oxygen saturations, ? blood pressure, adequacy of pulmonary ? ventilation, and response to care ? were monitored throughout the ? procedure. The physical status of the ? patient was re-assessed after the ? procedure. ? The procedure, indications, benefits, ? risks and alternatives were explained ? to the patient. Specifically ? discussed were potential ? complications including, but not ? limited to, bleeding, perforation, ? infection, missing a cancer, and ? adverse medication reactions. The ? Endoscope was introduced through the ? mouth, and advanced to the antrum of ? the stomach. The patient tolerated ? the procedure well. The upper GI ? endoscopy was accomplished without ? difficulty. The patient tolerated the ? procedure well. ? Findings: ? We advanced the therapeutic gastroscope to the ? stomach where the AXIOS stent was in place along the ? lesser curve. We removed the previously placed Solus ? stent with a snare and then entered the cavity. There ? was dense necrosis still present without significant ? room to debride, although we did debride with both ? the Yuan net and EXACTO snare. We then placed 200 ccs ? of 1:1 H2O2/saline in the cavity and then placed four ? 10 Fr Solus stents (one 5 Fr and three 4 Fr) into the ? cavity. ? Moderate Sedation: ? 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 stent placement Recommendation: ?- Repeat exam in 4-6 weeks ? - Advance diet as tolerated ? Attending Participation: ? I was present and participated during the entire ? procedure, including non-blanchard portions. ? ___ Manav Hale MD 05/09/2021 1:13:56 PM This report has been signed electronically. Number of Addenda: 0 Note Initiated On: 05/09/2021 11:44 AM PROVATION 05/09/2021 11:4 4 AM EST Peña Turner DO GENERAL SURGICAL ORD ERABLES PROVATION documented in this encounter Visit Diagnoses Not on filedocumented in this encounter Administered Medications Inactive Administered Medications - up to 3 most recent administrations Medication Order MAR Action Action Date Dose Rate Site lactated ringers infusion 100 mL/hr, Intravenous, CONTINUOUS, Starting on Wed05/09/21 at 1045, Until Wed05/09/21 at 1413, Endoscopy (Day of Procedure) Restarted 05/09/2021 1:02 PM EST New Bag 05/09/2021 10:45 AM EST 100 mL/hr 100 mL/hr ondansetron (pf) (Zofran) (2 mg/mL) injection 4 mg 4 mg, Intravenous, EVERY 30 MIN PRN, 2 doses, Starting on Wed05/09/21 at 1055, Until Wed05/09/21 at 1413, Nausea, Maximum total dose of 8 mg (including OR administration). If multiple antiemetics ordered, use ondansetron first and if ineffective use prochlorperazine second and if ineffective use promethazine, PACU Recovery Given 05/09/2021 10:56 AM EST 4 mg documented in this encounter Active and Recently Administered Medications Times are shown in EST. Continuous Medication Order 05/07/2021 05/08/2021 05/09/2021 lactated ringers infusion (CANCELED) 100 mL/hr, Intravenous, CONTINUOUS, Starting on Wed05/09/21 at 1045, Until Wed05/09/21 at 1413, Endoscopy (Day of Procedure) 1045 (New Bag - Prov ider: Pari Díaz RN)1301 (Paused - Provider: Robert Ibarra CRNA - Comment: Switch to gravity)1302 (Restarted - Provider: Robert Ibarra CRNA) PRN Medication Order 05/07/2021 05/08/2021 05/09/2021 ondansetron (pf) (Zofran) (2 mg/mL) injection 4 mg (CANCELED) 4 mg, Intravenous, EVERY 30 MIN PRN, 2 doses, Starting on Wed05/09/21 at 1055, Until Wed05/09/21 at 1413, Nausea, Maximum total dose of 8 mg (including OR administration). If multiple antiemetics ordered, use ondansetron first and if ineffective use prochlorperazine second and if ineffective use promethazine, PACU Recovery 1056 (Given - Provid er: Shasha Brooke RN - Comment: per Dr. Mack, given by Dr. Mack) documented in this encounter Care Teams Order Entry Representative Relationship Specialty Start Date End Date Peña Turner DO [address] [place] [address] PCP - General 05/13/10 07/21/21 documented as of this encounter
--- OUTSIDE RECORDS SUMMARY | 2024-06-12 14:14 | XMS_ITS | Encounter Summary ---
[facility] [place] [address] Care Team Providers Care Composition Molder Name Role Phone Peña Turner DO Primary Care Provider Reason for Visit * Auth/Cert Specialty Diagnoses / Procedures Referred By Contac t Referred To Contact Diagnoses Biliary acute pancreatitis without necrosis or infection GALLSTONE PANCREATITIS Procedures PRO LAP, CHOLECYSTECTOMY/GRAPH LAPAROSCOPIC CHOLECYSTECTOMY WITH CHOLANGIOGRAM (WRVU 11.47) Referral ID Status Reason Start Date Expiration Date Visits Re quested Visits Authorized [id number] 1 1 Encounter Details Date Type Department Care Team (Late st Contact Info) Description 03/27/2021 9:14 AM EDT Anesthesia Event [place] [id number] Joseph Wilks MD [facility] DR [place] [address] Anesthesia Record Procedure Summary Procedure Name Responsible Anesthesiologist Anesthesia Start Time Anesthesia Stop Time LAPAROSCOPIC CHOLECYSTECTOMY WITH CHOLANGIOGRAM (WRVU 11.47) (Abdomen) Joseph Wilks MD 03/27/21 0914 03/27/21 1219 Events Date Time Event Comment 03/27/2021 0826 0914 AN Verify 0914 Start 0917 An Start Data 0922 An Induction 0928 An Intubation 0928 Anesthesia Ready 1211 Extubation/LMA Out Patient h as met criteria for extubation. Oropharynx suctioned and patient extubated to 6lpm O2 via simple mask. Spontaneous ventilation maintained and no distress noted. 1215 an stop data 1219 Recovery or ICU Handoff Liyah ent care was transferred to the destination unit staff after review of the patient's medical history, current anesthetic/surgical status and plan, according to the Provider Handoff Checklist. 1219 Stop Meds Name Total Midazolam 2 mg fentaNYL 200 mcg IV Lidocaine 100 mg Propofol 350 mg Rocuronium 70 mg Ondansetron 8 mg Neostigmine 4 mg Glycopyrrolate 0.6 mg ceFAZolin 2 g Heparin 5,000 Units Dexmedetomidine 20 mcg ketorolac (Toradol) (30 mg/mL) injection 30 mg HYDROmorphone 0.5 mg lactated ringers infusion 1,200 mL * Agents Name O2 Air N2O Sevoflurane (et) * Blood No blood administrations on file. Lines, Drains, and Airways Type Details Placement Removal Incision 03/27/21; 953; abdo men; laparoscopic punctures (specify) (4 trocar sites) 03/27/21953 by Ute Anders RN (RETIRED) Peripheral IV Line - Single Lumen 03/27/21; 701; cephalic vein (lateral side of arm), left; [id number] catheter system; Anatomical Landmarks; 20 gauge; VITOR Toussaint; distraction, tolerated well, appears comfortable; 1; no longer indicated; 03/27/21; 1420 03/27/21701 by Shweta Roa RN 03/27/211419 by Filipe Blue RN ETT Mask Ventilation: Adjunct (2); ETT Type: Cuffed, Oral; ETT Size: 7.5 mm; Mac Blade: 4; Notes: Asleep, Pre-O2, Stylette; Attempts: 1; Laryngoscopy Grade: 1; ETT Placement Verified By: Auscultation, Capnometry, Visual; Secured at Teeth: 23 cm; Inserted by: MAURICE Jackson RN; Removal Date: 03/27/21; Removal Time: 121003/27/21927 by Mike Nettles CRNA 03/27/211210 by Mike Nettles CRNA documented in this encounter Social History Tobacco Use Types Packs/Day Years Used Date Smoking Tobacco: Never Smokeless Tobacco: Never Comments:never vape Alcohol Use Standard Drinks/Week Comments Not Currently 0 (1 standard drink = 0.6 oz pur e alcohol) occasionally Sex and Gender Information Value Date Recorded Sex Assigned at Not on file Gender Identity Not on file Sexual Orientation Not on file documented as of this encounter OR Notes * Anesthesia Postprocedure Evaluation - Joseph Wilks MD - 03/27/2021 5:59 PM EDT Department of Anesthesiology Post-procedure Note Patient: Pancho Babb Procedure Summary Date: 03/27/21 Room / Location: [address] MAIN OR Anesthesia Start: 913 Anesthesia Stop: 1219 Procedure: LAPAROSCOPIC CHOLECYSTECTOMY WITH CHOLANGIOGRAM (WRVU 11.47) (N/A Abdomen) Diagnosis: (GALLSTONE PANCREATITIS) Surgeons: Sal Marshall MD Responsible Provider: Joseph Wilks MD Anesthesia Type: general ASA Status: 3 All Anesthesia Providers: Anesthesiologist: Joesph Wilks MD INSURANCE ACCOUNT ASSISTANT: Mike Nettles CRNA Vitals Value Taken Time BP 120/70 03/27/21 1330 Temp 36.2 ??C (97.2 ??F) 03/27/21 1219 Pulse 81 03/27/21 1253 Resp 18 03/27/21 1300 SpO2 98 % 03/27/21 1330 Pain Level 0 03/27/21 1300 Vitals shown include unvalidated device data. Patient Location: PACU/[facility] Level of Consciousness: Awake and Alert Pain Management: Satisfactory Analgesia PONV: None Cardiovascular Status: At Baseline and Hemodynamically Stable Respiratory Status: At Baseline and Room Air Postoperative Fluid Status: Intravascular EUvolemia Possible Anesthetic Complications: NONE apparent at time of evaluation Final Primary Anesthesia Type: General (The anesthetic type performed was the same as planned.) Comments: JOSEPH WILKS MD * Anesthesia Preprocedure Evaluation - Joseph Wilks MD - 03/27/2021 8:25 AM EDT Pre-Anesthesia Evaluation for: Pancho Babb a 56 y.o. male. Procedure(s): LAPAROSCOPIC CHOLECYSTECTOMY WITH CHOLANGIOGRAM (WRVU 11.47) Patient Active Problem List Diagnosis ??? Hypertensive crisis ??? Gallstone pancreatitis ??? Vitamin D deficiency ??? Insulin resistance (high c-peptide 8.2 on 08/12/18 and low HDL 34) ??? Diabetes mellitus diagnosed at age 49 (A1c 6.8% in Jun 2015) ??? Hypertension ??? Obesity ??? Hypokalemia ??? Adrenal nodule History reviewed. No pertinent past medical history. Past Surgical History: Procedure Laterality Date ??? PRO COLONOSCOPY, DIAGNOSTIC N/A 01/14/2016 COLONOSCOPY, DIAGNOSTIC performed by Ruslan Taylor MD at [facility] ENDOSCOPY ??? PRO ENDOSCOPIC US EXAM, ESOPH N/A 03/10/2021 UPPER EUS- ENDOSCOPIC ULTRASOUND performed by Seb Maldonado MD at [facility] ENDOSCOPY ??? PRO ERCP, SPHINCTEROTOMY 03/10/2021 ERCP W/SPHINCTEROTOMY/PAPILLOTOMY performed by Seb Maldonado MD at [facility] ENDOSCOPY ??? PRO ERCP,DIAGNOSTIC N/A 03/10/2021 ERCP performed by Seb Maldonado MD at [facility] ENDOSCOPY Social History Tobacco Use ??? Smoking status: Never Smoker ??? Smokeless tobacco: Never Used ??? Tobacco comment: never vape Substance Use Topics ??? Alcohol use: Not Currently Comment: occasionally Social History Substance and Sexual Activity Drug Use Not Currently ??? Types: Marijuana No Known Allergies Medications: MAR and/or home medications have been reviewed. Physical Exam: Preprocedure Vitals Current as of 03/27/21 0825 BP: 124/74 Pulse: 69 Resp: 15 SpO2: 97 Temp: 36.2 ??C (97.2 ??F) Height: 177.8 cm (5' 10) (03/27/21) Weight: 91.5 kg (201 lb 11.2 oz) (03/27/21) BMI: 28.94 IBW: 73 kg (160 lb 15 oz) Last edited 03/27/21 0613 by SD Airway Assessment: Mallampati: II TM distance: >3 FB Neck ROM: full Cardiovascular Assessment: Rhythm: regular Rate: normal Pulmonary Assessment: unlabored breathing Dental Assessment: - normal exam Misc Assessment: Last Filed Perioperative Cognitive Screening None Anesthesia Plan: ASA 3 general, with a(n) intravenous induction 56 yo non smoker with medical hx as above presents after episode of gallstone pancreatitis for laparoscopic cholecystectomy. Discussed risks/benefits GAETT. Informed Consent: Anesthetic plan and risks discussed with patient. Plan discussed with INSURANCE ACCOUNT ASSISTANT. Anesthesia Screening documented in this encounter Plan of Treatment Not on file documented as of this encounter Visit Diagnoses Not on filedocumented in this encounter Administered Medications Inactive Administered Medications - up to 3 most recent administrations Medication Order MAR Action Action Date Dose Rate Site ceFAZolin (Ancef) 1 g in dextrose 5% 50 mL infusion Intravenous, PRN, Starting on Vicky 03/27/21 at 0941, Until Vicky 03/27/21 at 1219, Administer over 30 Minutes, Anesthesia Intra-op Given 03/27/2021 9:41 AM EDT 2 g dexmedetomidine (Precedex) (4 mcg/mL) bolus injection (Anesthsia) Intravenous, PRN, Starting on Vicky 03/27/21 at 1105, Until Vicky 03/27/21 at 1219, Anesthesia Intra-op, Routine Given 03/27/2021 11:18 AM EDT 8 mcg Given 03/27/2021 11:05 AM EDT 8 mcg Given 03/27/2021 10:38 AM EDT 4 mcg fentaNYL (pf) (50 mcg/mL) multi-dose injection Intravenous, PRN, Starting on Vicky 03/27/21 at 1040, Until Vicky 03/27/21 at 1219, Anesthesia Intra-op, Routine Given 03/27/2021 10:52 AM EDT 50 mcg Given 03/27/2021 10:40 AM EDT 50 mcg Given 03/27/2021 9:22 AM EDT 100 mcg glycopyrrolate (Robinul) (0.2 mg/mL) multi-dose injection Intravenous, PRN, Starting on Vicky 03/27/21 at 1153, Until Vicky 03/27/21 at 1219, Anesthesia Intra-op, Routine Given 03/27/2021 11:53 AM EDT 0.6 mg heparin (porcine) (1,000 units/mL) injection Intravenous, PRN, Starting on Vicky 03/27/21 at 0946, Until Vicky 03/27/21 at 1219, Anesthesia Intra-op, Routine Given 03/27/2021 9:46 AM EDT 5,000 Uni ts HYDROmorphone (Dilaudid) (2 mg/mL) multi-dose injection solution Intravenous, PRN, Starting on Vicky 03/27/21 at 1152, Until Vicky 03/27/21 at 1219, Anesthesia Intra-op, Routine Given 03/27/2021 11:52 AM EDT 0.5 mg ketorolac (Toradol) (30 mg/mL) injection Intravenous, PRN, Starting on Vicky 03/27/21 at 1149, Until Vicky 03/27/21 at 1219, Anesthesia Intra-op, Routine Given 03/27/2021 11:49 AM EDT 30 mg lactated ringers infusion 1,000 mL, at 100 mL/hr, Intravenous, CONTINUOUS, Starting on Vicky 03/27/21 at 0630, Until Vicky 03/27/21 at 1454, Day of Surgery (Day of Procedure) New Bag 03/27/2021 11:29 AM EDT New Bag 03/27/2021 9:02 AM EDT New Bag 03/27/2021 7:02 AM EDT 1,000 mLs 100 mL/hr lidocaine (pf) (Xylocaine) (20 mg/mL) 2% injection syringe Intravenous, PRN, Starting on Vicky 03/27/21 at 0922, Until Vicky 03/27/21 at 1219, Anesthesia Intra-op, Routine Given 03/27/2021 9:22 AM EDT 100 mg midazolam (pf) (Versed) (1 mg/mL) multi-dose injection Intravenous, PRN, Starting on Vicky 03/27/21 at 0915, Until Vicky 03/27/21 at 1219, Anesthesia Intra-op, Routine Given 03/27/2021 9:15 AM EDT 2 mg neostigmine (Bloxiver) (1 mg/mL) injection Intravenous, PRN, Starting on Vicky 03/27/21 at 1153, Until Vicky 03/27/21 at 1219, Anesthesia Intra-op, Routine Given 03/27/2021 11:53 AM EDT 4 mg ondansetron (pf) (Zofran) (2 mg/mL) injection Intravenous, PRN, Starting on Vicky 03/27/21 at 1149, Until Vicky 03/27/21 at 1219, Anesthesia Intra-op, Routine Given 03/27/2021 11:49 AM EDT 8 mg propofoL (Diprivan) 10 mg/mL bolus injection (Anesthesia) Intravenous, PRN, Starting on Vicky 03/27/21 at 1022, Until Vicky 03/27/21 at 1219, Anesthesia Intra-op Given 03/27/2021 11:39 AM EDT 50 mg Given 03/27/2021 10:22 AM EDT 20 mg Given 03/27/2021 9:27 AM EDT 80 mg rocuronium (Zemuron) (10 mg/mL) multi-dose injection Intravenous, PRN, Starting on Vicky 03/27/21 at 0925, Until Vicky 03/27/21 at 1219, Anesthesia Intra-op, Routine Given 03/27/2021 9:25 AM EDT 70 mg documented in this encounter Care Teams Composition Molder Relationship Specialty Start Date End Date Peña Turner DO [address] [place] [address] PCP - General 05/13/10 07/21/21 documented as of this encounter
--- OUTSIDE RECORDS SUMMARY | 2024-06-12 14:14 | XMS_ITS | Encounter Summary ---
Author Organization [facility] Address [facility] [place] [address] Care Team Providers Care Electronic Prepress System Operator Name Role Phone Johnny Peña WALDRON Primary Care Provider [phone] Encounter Details Date Type Department Care Team (Late st Contact Info) Description 04/30/2021 Telephone [place] [address] Geo Boucher MD [facility] [place] [address] Social History Tobacco Use Types Packs/Day Years Used Date Smoking Tobacco: Never Smokeless Tobacco: Never Comments:never vape Alcohol Use Standard Drinks/Week Comments Not Currently 0 (1 standard drink = 0.6 oz pur e alcohol) occasionally Sex and Gender Information Value Date Recorded Sex Assigned at Not on file Gender Identity Not on file Sexual Orientation Not on file documented as of this encounter Miscellaneous Notes * Telephone Encounter - Geo Boucher - 04/30/2021 10:51 AM EST Images from the original note were not included. [facility]OLOGY [facility] CALL Name: Pancho Babb Date: 04/30/2021 Time: 10:52 AM Referring Location: [facility] Referring Provider: Dr. Colón See prior notes. 56/M who underwent cystogastrostomy on 04/22 with debridement of pancreatic necrosis. Dr. Colón calls today to help coordinate care as patient is nearing discharge. Pain improved, tolerating diet. Patient has already completed 12+ days of meropenem without further signs/symptoms ofinfection, multiple bcx wee negative. Seemed reasonable to discharge off antibiotics. Order for repeat EUS with debridement already placed. This is not an official consult, as my recommendations are limited by my inability to interview andexamine the patient as well as personally review the medical record, imaging, and laboratory findings. Geo Boucher MD PGY-5, Gastroenterology documented in this encounter Plan of Treatment Not on file documented as of this encounter Visit Diagnoses Not on filedocumented in this encounter Care Teams Electronic Prepress System Operator Relationship Specialty Start Date End Date Peña Turner DO [address] [facility] [address] [place] [address] PCP - General 05/13/10 07/21/21 documented as of this encounter
--- OUTSIDE RECORDS SUMMARY | 2024-06-12 14:14 | XMS_ITS | Encounter Summary ---
Author Organization [facility] Address [facility] [place] [address] Care Team Providers Care Parachute Cushion Installer Name Role Phone Javed Gordon MD Primary Care Provider [phone] Reason for Referral * Diagnostic Test (Routine) - Closed Specialty Diagnoses / Procedures Referred By Contac t Referred To Contact Radiology Diagnoses Necrotizing pancreatitis Procedures CT Abdomen w Contrast CT Abdomen & Pelvis w Contrast Manav Hale MD [facility] [place] [address] [facility] [place] [address] Referral ID Status Reason Start Date Expiration Date V isits Requested Visits Authorized [id number] Closed Specialty Service Requested 07/22/2021 01/19/2023 1 1 Encounter Details Date Type Department Care Team (Late st Contact Info) Description 07/22/2021 Orders [place] [phone] Manav Hale MD [facility] GASTROENTEROLOGY [place], [place] [id number] Necrotizing pancreatitis Social History Tobacco Use Types Packs/Day Years Used Date Smoking Tobacco: Never Smokeless Tobacco: Never Comments:never vape Alcohol Use Standard Drinks/Week Comments Not Currently 0 (1 standard drink = 0.6 oz pur e alcohol) one year sober Sex and Gender Information Value Date Recorded Sex Assigned at Not on file Gender Identity Not on file Sexual Orientation Not on file documented as of this encounter Plan of Treatment Not on file documented as of this encounter Results * CT Abdomen w Contrast (09/11/2021 5:06 PM EDT) Anatomical Region Laterality Modality Abdomen Computed Tomogra phy 09/11/2021 5:27 PM EDT Impressions 09/12/2021 8:12 AM EDT 1. ??Evolutionary changes in post-necrotic scarring and atrophy of the pancreatic neck and body. ??No persistent focal collection surrounding the cystogastrostomy double pigtail stent. ??Desmoplastic changes with tethering of the lesser curvature of the stomach and root of the mesentery adjacent to the pancreatic neck and body. 2. ??Uniform enhancement of unaffected components of the pancreatic head and tail. ??Mild prominence of the pancreatic duct within the pancreatic tail = 5 mm. 3. ??Luminal narrowing without intraluminal thrombus at the confluence, most pronounced in the superior mesenteric vein and caudal portal vein. ??Prominent venous collaterals with new perigastric and paraesophageal varices. Thank you for letting us participate in the care of this patient. ??If you are a health care provider and have any questions regarding this report, please contact the number below. ??For patients who have questions please contact the health medicare sales executive that requested your imaging first. ? Narrative 09/12/2021 8:12 AM EDT EXAMINATION: CT ABDOMEN W CONTRAST CLINICAL HISTORY: Right lower quadrant abdominal pain. ??Necrotizing pancreatitis. ??Follow-up. TECHNIQUE: Helical CT of the abdomen was performed following the intravenous administration of contrast. Administered 100.0 ml of OMNIPAQUE 350.00 mg/ml. Oral contrast was not administered. COMPARISON: Comparison is made to multiple prior CT of the abdomen and pelvis examinations, the most recent which is dated February 10, 2021. FINDINGS: Steam Shovel Oiler Images: Noncontributory. Lower chest: Visualized structures within the inferior thorax are within normal limits. Liver: Normal. Bile ducts: There is air within the central intrahepatic bile ducts as well as the common bile duct. ??There is no biliary ductal dilatation. Gallbladder: The gallbladder is surgically absent with surgical clips within the gallbladder fossa. Pancreas: In the interval since the prior examination, there is been atrophy of the necrotic segment of the pancreatic neck and body with resultant tethered appearance of the mesentery in this region extending to the lesser curvature of the stomach as well as along the root of the mesentery. ??Within the atrophic component, no normal-appearing pancreatic parenchyma is identified. ??Within the pancreatic tail and head, there is homogeneous enhancement on both arterial and portal venous imaging. ??Centered in the atrophic component, is a double pigtail stent cystogastrostomy present with intraparenchymal component centered in the atrophic, fibrotic previously necrotic component. ??No persistent focal collection is identified. ??There is mild prominence of the pancreatic tail within the pancreatic duct, measuring up to 5 mm. Spleen: Normal. Adrenal: Normal. Kidneys: There is a 7 mm hypoattenuating, 20 Hounsfield, cyst in the lower pole of the right kidney. ??Visualized aspects of the ureters image normally. Vasculature: The aorta is normal in course and caliber. ??The origin the mesenteric and renal arteries are within normal limits. ??There is narrowing of the caudal portal vein, superior mesenteric vein and splenic vein at the confluence adjacent to the fibrotic changes centered around the pancreatic body. There are prominent venous collaterals involving the inferior mesenteric vein as well as development of perigastric and paraesophageal varices.. ??The splenic, superior mesenteric, and portal veins are patent. Lymph nodes: There are no pathologically enlarged lymph nodes. Bowel: Limited evaluation the distal esophagus is otherwise unremarkable. ??The stomach is partially distended and is otherwise unremarkable. ??The duodenum is normal in course and caliber. ??The remainder of the visualized small and large bowel are within normal limits. Peritoneum and mesentery: No ascites, free air, or loculated fluid collection. Abdominal wall: Normal. Osseous structures: There are no suspicious osseous lesions. ??There are degenerative changes of visualized spine with endplate sclerosis and osteophyte formation. Procedure Note Sal Walton, DO - 09/12/2021 EXAMINATION: CT ABDOMEN W CONTRAST CLINICAL HISTORY: Right lower quadrant abdominal pain. Necrotizing pancreatitis. Follow-up. TECHNIQUE: Helical CT of the abdomen was performed following theintravenous administration of contrast. Administered 100.0 ml of OMNIPAQUE 350.00mg/ml. Oral contrast was not administered. COMPARISON: Comparison is made to multiple prior CT of the abdomen andpelvis examinations, the most recent which is dated February 10, 2021. FINDINGS: Steam Shovel Oiler Images: Noncontributory. Lower chest: Visualized structures within the inferior thorax are withinnormal limits. Liver: Normal. Bile ducts: There is air within the central intrahepatic bile ducts aswell as the common bile duct. There is no biliary ductal dilatation. Gallbladder: The gallbladder is surgically absent with surgical clipswithin the gallbladder fossa. Pancreas: In the interval since the prior examination, there is beenatrophy of the necrotic segment of the pancreatic neck and body with resultanttethered appearance of the mesentery in this region extending to the lessercurvature of the stomach as well as along the root of the mesentery. Within theatrophic component, no normal-appearing pancreatic parenchyma is identified.Within the pancreatic tail and head, there is homogeneous enhancement on botharterial and portal venous imaging. Centered in the atrophic component, is a doublepigtail stent cystogastrostomy present with intraparenchymal component centered inthe atrophic, fibrotic previously necrotic component. No persistent focal collection is identified. There is mild prominence of the pancreatictail within the pancreatic duct, measuring up to 5 mm. Spleen: Normal. Adrenal: Normal. Kidneys: There is a 7 mm hypoattenuating, 20 Hounsfield, cyst in the lowerpole of the right kidney. Visualized aspects of the ureters image normally. Vasculature: The aorta is normal in course and caliber. The origin the mesenteric and renal arteries are within normal limits. There isnarrowing of the caudal portal vein, superior mesenteric vein and splenic vein at the confluence adjacent to the fibrotic changes centered around the pancreaticbody. There are prominent venous collaterals involving the inferior mesentericvein as well as development of perigastric and paraesophageal varices.. Thesplenic, superior mesenteric, and portal veins are patent. Lymph nodes: There are no pathologically enlarged lymph nodes. Bowel: Limited evaluation the distal esophagus is otherwise unremarkable.The stomach is partially distended and is otherwise unremarkable. Theduodenum is normal in course and caliber. The remainder of the visualized small andlarge bowel are within normal limits. Peritoneum and mesentery: No ascites, free air, or loculated fluidcollection. Abdominal wall: Normal. Osseous structures: There are no suspicious osseous lesions. There are degenerative changes of visualized spine with endplate sclerosis andosteophyte formation. IMPRESSION 1. Evolutionary changes in post-necrotic scarring and atrophy of thepancreatic neck and body. No persistent focal collection surrounding thecystogastrostomy double pigtail stent. Desmoplastic changes with tethering of the lesser curvature of the stomach and root of the mesentery adjacent to thepancreatic neck and body. 2. Uniform enhancement of unaffected components of the pancreatic headand tail. Mild prominence of the pancreatic duct within the pancreatic tail =5 mm. 3. Luminal narrowing without intraluminal thrombus at the confluence,most pronounced in the superior mesenteric vein and caudal portal vein.Prominent venous collaterals with new perigastric and paraesophageal varices. Thank you for letting us participate in the care of this patient. If youare a health care provider and have any questions regarding this report,please contact the number below. For patients who have questions please contactthe health medicare sales executive that requested your imaging first. Manav Hale MD IMG CT ORDERABLES documented in this encounter Visit Diagnoses Diagnosis Necrotizing pancreatitis Acute pancreatitis Necrotizing pancreatitis Acute pancreatitis documented in this encounter Care Teams Parachute Cushion Installer Relationship Specialty Start Date End Date Javed Gordon MD PCP - General Family Medicine 07/22/21 04/27/22 documented as of this encounter
--- OUTSIDE RECORDS SUMMARY | 2024-06-12 14:14 | XMS_ITS | Encounter Summary ---
Author Organization [facility] Address [facility] [place] [address] Care Team Providers Care Investigations Manager Name Role Phone Javed Gordon MD Primary Care Provider [phone] Encounter Details Date Type Department Care Team (Latest Contact Info) Description 07/22/2021 11:51 AM EST - 07/22/2021 5:43 PM EST Hospital Encounter [place] [address] Manav Hale MD [facility] [place] [address] Discharge Disposition: Home Social History Tobacco Use [...] Sign Reading Time Taken Comments Blood Pressure 124/80 07/22/2021 5:10 PM EST Pulse 78 07/22/2021 12:47 PM EST Temperature 36.7 ??C (98 ??F) 07/22/2021 12:47 PM EST Respiratory Rate 18 07/22/2021 5:10 PM EST Oxygen Saturation 99% 07/22/2021 5:15 PM EST Inhaled Oxygen Concentration - - Weight 79.4 kg (175 lb) 07/22/2021 12:47 PM EST Height - - Body Mass Index 25.11 06/10/2021 12:02 PM EST documented in this encounter Discharge Instructions * Discharge Instructions* Patrick Alvarez, RN - 07/22/2021 5:18 PM EST Upper GI Endoscopy: What to [...] the day after the procedure, use an nuuw-cni-serlnpt spray to numb your throat. Sucking on [...] occurs, please contact your Doctor. Please call [phone] before 8pm Mon-Fri with problems, questions or concerns. If you call after 8pm or on weekends, call the Hospital at [phone] and ask to speak to the Commercial Sales Consultant alteration tailor apprentice and the chinchilla machine operator will contact that person for you. When should you call for help? Call 911 anytime you think you may need emergency [...] any problems. Where can you learn more? [facility] View your After Visit Summary and more online at [email or web address] If you would like to provide feedback about your hospital experience, please call the Office of Patient and Family Relations at . If you have received this After Visit Summary in error, please immediately return it in person to the department, or notify the [facility] Privacy Office by calling toll free at between the hours of 8AM and 5PM to arrange for our retrieval of the documents at no cost to you. Content Version: 12.2 ?? [id number] [employer]. Care instructions adapted under license by [facility]. If you have questions about a medical condition or this instruction, always ask your healthcare professional. [employer] disclaims any warranty or liability for your [...] Notes * Ryan Del Valle MD - 07/22/2021 1:24 PM EST Patient Name: Pancho Babb Patient Age: 56 y.o. Birthdate: 1965 Admit date: 07/22/2021 Attending Physician: Manav Hale MD HISTORY OF PRESENT ILLNESS Pancho Babb is a 56 y.o. who presents for EGD for evaluation of pancreatic cystgastrostomy with necrosectomy, likely removal of stents, dilation and further necrosectomy. PROBLEM LIST Patient Active Problem List Diagnosis [...] TABLET BY MOUTH EVERY 12 HOURS ??? oxyCODONE (Roxicodone) 5 mg Tablet Take 1 tablet by mouth every 3 hours as needed for Pain. 24 tablet 0 ??? metFORMIN XR (Glucophage XR) 500 mg Tablet Sustained Release 24 hr Take 3 tablets by mouth daily. 270 tablet 3 ??? spironolactone (ALDACTONE) 25 mg Tablet TAKE ONE TABLET BY MOUTH TWICE A DAY (Patient taking differently: 25 mg daily.) 180 tablet 3 ??? lisinopril (PRINIVIL;ZESTRIL) 20 mg Tablet Take 20 mg by mouth daily. ??? amLODIPine (Norvasc) 5 mg Tablet Take 1 tablet by mouth daily. 90 tablet 3 ??? ergocalciferoL, vitamin D2, (vitamin D) 50,000 unit Capsule Take 1 capsule by mouth once a week. (Patient taking differently: Take 50,000 Units by mouth once a week. Fridays) 13 capsule 4 PHYSICAL EXAM: Blood pressure 129/79, pulse 78, temperature 36.7 ??C (98 ??F), weight 79.4 kg (175 lb), SpO2 99 %. GEN: Alert, cooperative. Pleasant. In NAD MP 2 ASA 2 HEENT: No oropharyngeal lesions. Neck supple. No [...] Flexible Transoral Endoscopic Stent Placement W/Wire & Dilation(41547) 07/22/2021 1:56 PM EST Necrosis of pancreas UPPER GI ENDOSCOPY Routine 07/22/2021 1: 34 PM EST documented in this encounter Results * UPPER GI ENDOSCOPY (07/22/2021 1:34 PM EST) Pathologist [facility] UPPER GI ENDOSCOPY [facility] Endoscopy Procedure Date: 07/22/2021 1:34 PM ? Patient Name: Pancho Babb ? N: [id number] ? Date of : 1965 ? Age: 56 ? Order #: [id number] ? Instrument Name: [id number] ? Procedure: ? Upper GI endoscopy Indications: ? Necrosectomy Providers: ? Manav Hale MD, Pancho Graff ? Brittany Vazquez, Blast Furnace Operator Referring : ?Peña Turner, DO Medicines: ? [...] ? antiplatelet agents. ASA Grade ? Assessment: II - A patient with mild ? systemic disease. After reviewing the ? risks and benefits, the patient was ? deemed in satisfactory condition to ? undergo the procedure. The anesthesia ? plan was to use general anesthesia. ? Immediately prior to administration ? of medications, the patient was ? re-assessed for adequacy to receive ? sedatives. The heart rate, ? respiratory rate, [...] the ? mouth, and advanced to the third part ? of duodenum. The patient tolerated ? the procedure well. The upper GI ? endoscopy was accomplished without ? difficulty. The patient tolerated the ? procedure well. ? Findings: ? The esophagus was normal. ? The previous cystgastrostomy site was located in a ? difficult position along the lesser curve. Four Solus ? stents were removed and one was left in place. We ? then attempted to enter the cavity but due to ? angulation we could not so we dilated the tract with ? an 18-19-20 mm TTS balloon. We still had difficult ? entering the cavity so we attempted to use a ? pedicatric colonoscope which was not helpful due to ? angulation. We then attempted to replace an AXIOS 20 ? mm but could not deploy in the cavity due to its lack ? of depth. We then used the therapeutic gastoscope to ? advance into the cavity in a retroflex positron and ? we able to barely enter the cavity. Using a ? rat-toothed forceps and snares we debrided the cavity ? and multiple necromas were removed - the wall of the ? cavity appeared to be fairly clean after the ? procedure without evidence of necrosis but we could ? not advance deep into the cavity. We then placed an ? additional 10 Fr x 4 cm Solus stent so that by the ? end of the procedure there were two of the stents in ? place. We placed a total of 500 cc of 1:1 hydrogen ? peroxide/saline within the cavity. ? The duodenum was normal ? Moderate Sedation: ? Not applicable - See Anesthesia documentation Impression: ?- Further debridement of the necrotic ? cavity - now with 2 10 fr x 4 cm ? Solus stents in place Recommendation: ?- Perform CT Scan in 6-8 weeks - ? hopefully no further debridements ? will be necessary ? Attending Participation: ? I was present and participated during the entire ? procedure, including non-blanchard portions. ? ___ Manav Hale MD 07/22/2021 4:36:02 PM This report has been signed electronically. Number of Addenda: 0 Note Initiated On: 07/22/2021 1:34 PM PROVATION 07/22/2021 1:34 PM EST Peña Turner DO GENERAL SURGICAL ORD ERABLES PROVATION documented in this encounter Visit Diagnoses Not on filedocumented in this encounter Administered Medications Inactive Administered Medications - up to 3 most recent administrations Medication Order MAR Action Action Date Dose Rate Site lactated ringers infusion 100 mL/hr, Intravenous, CONTINUOUS, Starting on Wed07/22/21 at 1300, Until Wed07/22/21 at 1718, Endoscopy (Day of Procedure) New Bag 07/22/2021 3:21 PM EST 100 mL/hr 100 mL/hr New Bag 07/22/2021 1:00 PM EST 100 mL/hr 100 mL/hr documented in this encounter Active and Recently Administered Medications Times are shown in EST. Continuous Medication Order 07/20/2021 07/21/2021 07/22/2021 lactated ringers infusion (CANCELED) 100 mL/hr, Intravenous, CONTINUOUS, Starting on Wed07/22/21 at 1300, Until Wed07/22/21 at 1718, Endoscopy (Day of Procedure) 1300 (New Bag - Prov ider: Syl Martinez RN)1521 (New Bag - Provider: Patrick Alvarez, VITOR) documented in this encounter Care Teams Investigations Manager Relationship Specialty Start Date End Date Javed Gordon MD PCP - General Family Medicine 07/22/21 04/27/22 documented as of this encounter
--- OUTSIDE RECORDS SUMMARY | 2024-06-12 14:14 | XMS_ITS | Encounter Summary ---
Author Organization [facility] Address [facility] [place] [address] Care Team Providers Care Home Health Aid Name Role Phone Peña Turner DO Primary Care Provider Encounter Details Date Type Department Care Team (Late st Contact Info) Description 05/09/2021 Orders [place] [address] Manav Hale MD [facility] [place] [address] Acute necrosis of pancreas Social History Tobacco Use Types Packs/Day Years [...] as of this encounter Plan of Treatment Scheduled Orders Name Type Priority Associated Diagnoses Orde r Schedule ENDOSCOPY CASE REQUEST: EGD, UPPER GI ENDOSCOPY Procedures Routine Acute necrosis of pancreas Ordered: 05/09/2021 documented as of this encounter Visit Diagnoses Diagnosis Acute necrosis of pancreas Acute pancreatitis documented in this encounter Care Teams Home Health Aid Relationship Specialty Start Date End Date Peña Turner DO [address] [place] [address] PCP - General 05/13/10 07/21/21 documented as of this encounter
--- OUTSIDE RECORDS SUMMARY | 2024-06-12 14:14 | XMS_ITS | Encounter Summary ---
Author Organization Replaced By [facility] Address [facility] [place] [address] Care Team Providers Care Ground Service Equipment Mechanic Name Role Phone Javed Gordon MD Primary Care Provider [phone] Encounter Details Date Type Department Care Team (Late st Contact Info) Description 04/27/2022 1:30 PM EST Office [place] [id number] Manav Hale MD [facility] [place] [address] Severe acute pancreatitis Social History Tobacco Use Types Packs/Day [...] Sign Reading Time Taken Comments Blood Pressure 165/88 04/27/2022 1:14 PM EST Pulse 59 04/27/2022 1:14 PM EST Temperature - - Respiratory Rate - - Oxygen Saturation - - Inhaled Oxygen Concentration - - Weight 92 kg (202 lb 14.4 oz) 04/27/2022 1:14 PM EST Height 177.8 cm (5' 10) 04/27/2022 1:14 PM EST Body Mass Index 29.11 04/27/2022 1:14 PM EST documented in this encounter Progress Notes * Manav Hale MD - 04/27/2022 1:30 PM EST PROBLEM LIST Severe Necrotizing Pancreatitis s/p necrosectomy HISTORY OF PRESENT ILLNESS Pancho Babb is a 57 y.o. y/o who presents for follow-up visit. Please see my previous notes for details of the patient's past history. 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 His original attack was in January. At his last necrosectomy he was leftwith a Solus stent in place in the mid body of the pancreas. His CT scan in August was his last CT scan and demonstrated complete resolution of his walled off pancreatic necrosis with a small residualtail. States he feels entirely well. He is gaining weight. He has no abdominal pain. No stearrhea. He hasbeen intermittently taking his Creon without any evidence of change in symptoms when he does take the Creon. He now is a diabetic but his diabetes has been under very good control with 10 units of long-acting insulin in the morning and on demand subsequent boluses. He denies any fevers, chills, night sweats, stearrhea. MEDICATIONS Current Outpatient Medications on File Prior to Visit Medication Sig Dispense Refill ??? xikidx-asnlyxex-unpeegm DR (Creon 24) 24,000-76,000 -120,000 unit Capsule, Delayed Release(E.C.) Take 2 capsules by mouth 3 times daily. ??? spironolactone (Aldactone) 25 mg Tablet Take 1 tablet by mouth daily. ??? metFORMIN XR (Glucophage XR) 500 mg Tablet Sustained Release 24 hr Take 3 tablets by mouth daily. (Patient taking differently: Take 1,000 mg by mouth daily.) 270 tablet 3 ??? ergocalciferoL, vitamin D2, (vitamin D) 50,000 unit Capsule Take 1 capsule by mouth once a week. (Patient taking differently: Take 50,000 Units by mouth once a week. Fridays) 13 capsule 4 ??? lisinopril (PRINIVIL;ZESTRIL) 20 mg Tablet Take 20 mg by mouth daily. No current facility-administered medications on file prior to visit. ALLERGIES: Patient has no known allergies. REVIEW OF SYSTEMS - No change in vision or hearing - No neck pain or dysphagia - No chest pain or SOB - No change in bowel or bladder habits - No focal weakness or numbness - No confusion - No skin lesions - All others negative PHYSICAL EXAM: Blood pressure 165/88, pulse 59, height 177.8 cm (5' 10), weight 92 kg (202 lb 14.4 oz). GEN: Alert, cooperative. Pleasant. In NAD MENTAL STATUS: Oriented x 3 RECENT LABS No results found for this or any previous visit (from the past 24 hour(s)). ASSESSMENT AND PLAN Pancho Babb is a 57 y.o. y/o who presents for follow-up visit. He had severe gallstone pancreatitis in January 2021 and subsequently developed walled off pancreatic process of the entire body of mostof the tail of the pancreas. He was treated with serial necrosectomy and has been left with a solo stent maintaining the fistula of the pancreatic duct to the stomach. He has absolutely no symptoms and his only sequela from the attack has been new onset diabetes. He is status post cholecystectomy. I answered multiple questions for Alan about prognosis. I told him that as long as he maintains his blood sugar in good control he should not have any longstanding issues from his pancreatitis. Since he is not having any clinical benefit from the Creon we will discontinue his Creon. I do not think he needs to be scheduled for further follow-up visit. He knows to contact me immediately should he develop any symptoms of anorexia, abdominal pain specifically in the left upper quadrant, nausea, vomiting or weight loss. 23 minutes spent with the patient on this consultation. An additional 2 minutes were spent before and after the visit on this same day in preparation for the appointment, ordering tests and/or prescriptions, communicating with referring providers and completing documentation. All of the patient's questions were answered. Greater than 50% of this visit was spent in counseling. documented in this encounter Plan of Treatment Not on file documented as of this encounter Visit Diagnoses Diagnosis Severe acute pancreatitis documented in this encounter Care Teams Ground Service Equipment Mechanic Relationship Specialty Start Date End Date Javed Gordon MD PCP - General Family Medicine 07/22/21 04/27/22 documented as of this encounter
--- OUTSIDE RECORDS SUMMARY | 2024-06-12 14:14 | XMS_ITS | Encounter Summary ---
[place] [address] Care Team Providers Care Sap Business Objects Consultant Name Role Phone Javed Gordon MD Primary Care Provider [phone] Encounter Details Date Type Department Care Team (Late st Contact Info) Description 09/09/2021 Telephone [place] [phone] Renée Stokes, RN Social History Tobacco Use Types Packs/Day Years [...] encounter Miscellaneous Notes * Telephone Encounter - Renée Stokes, RN - 09/09/2021 2:44 PM EDT Call placed to Pancho to check in about Creon refill. Pancho states his PCP is going to fill a months supply for him until he is able to determine next steps. documented in this encounter Plan of Treatment Not on file documented as of this encounter Visit Diagnoses Not on filedocumented in this encounter Care Teams Sap Business Objects Consultant Relationship Specialty Start Date End Date Javed Gordon MD PCP - General Family Medicine 07/22/21 04/27/22 documented as of this encounter
--- OUTSIDE RECORDS SUMMARY | 2024-06-12 14:14 | XMS_ITS | Encounter Summary ---
Author Organization [facility] Address [facility] [place] [address] Care Team Providers Care It Data Architect Name Role Phone Peña Turner DO Primary Care Provider [phone] Encounter Details Date Type Department Care Team (Late st Contact Info) Description 06/10/2021 12:41 PM EST Anesthesia Event [place] [address] Bennett Mckenzie MD [facility] [place] [address] Magalys Davila MD [facility] [place] [address] Anesthesia Record Procedure Summary Procedure Name Responsible Anesthesiologist Anesthesia Start Time Anesthesia Stop Time EGD, UPPER GI ENDOSCOPY (WRVU 2.09) (Trunk) Bennett Mckenzie MD 06/10/21 1241 06/10/21 1510 Events Date Time Event Comment 06/10/2021 1209 1241 AN Verify 1241 Start 1241 An Start Data 1244 An Induction 1246 An Intubation 1247 Anesthesia Ready 1509 Extubation/LMA Out 1510 an stop data 1510 Recovery or ICU Handoff Liyah ent care was transferred to the destination unit staff after review of the patient's medical history, current anesthetic/surgical status and plan, according to the Provider Handoff Checklist. 1510 Stop Meds Name Total IV Lidocaine 50 mg Propofol 250 mg Propofol INF 2,096.16 mg Succinylcholine 100 mg PHENYLephrine 320 mcg lactated ringers infusion 900 mL * Agents Name O2 Auxiliary Flowmeter 1 * Blood No blood administrations on file. Lines, Drains, and Airways Type Details Placement Removal Incision 03/27/21; 0954; abdomen; laparoscopic punctures (specify) (4 trocar sites) 03/27/21 0954 by Ute Anders, RN (RETIRED) Peripheral IV Line - Single Lumen 04/21/21; 1200; median cubital vein (antecubital fossa), left; [id number]-ptgimy catheter system; Anatomical Landmarks; 18 gauge; (placed by outside hospital); 11/25/21 (LDA Cleanup utility RA#[id number]); 1027 (LDA Cleanup utility RA#[id number]) 04/21/21 1200 by Anny Peguero RN 11/25/21 1027 by Sarthak Kimble (RETIRED) Peripheral IV Line - Single Lumen 06/10/21; 1233; cephalic vein (lateral side of arm), right; daot-ojc-adzgul catheter system; Anatomical Landmarks; 20 gauge; christiano; 06/10/21; 1552 06/10/21 1233 by Manav Jensen RN 06/10/21 1552 by Anny Peguero, RN ETT Mask Ventilation: Ea sy (1); ETT Type: Cuffed, Oral; ETT Size: 7.5 mm; Mac Blade: 4; Notes: Asleep, Pre-O2, Stylette; Attempts: 1; Laryngoscopy Grade: 1; ETT Placement Verified By: Auscultation, Capnometry, Visual; Secured at Teeth: 23 cm; Inserted by: KYLER Munoz; Removal Date: 06/10/21; Removal Time: 1509 06/10/21 1244 by Robert Ibarra CRNA 06/10/21 1509 by Robert Ibarra CRNA documented in this encounter Social History [...] OR Notes * Anesthesia Postprocedure Evaluation - Bennett Mckenzie MD - 06/11/2021 12:05 PM EST Department of Anesthesiology Post-procedure Note Patient: Pancho Babb Procedure Summary Date: 06/10/21 Room / Location: [facility] / [facility] Anesthesia Start: 1241 Anesthesia Stop: 1510 Procedures: EGD, UPPER GI ENDOSCOPY (N/A Trunk) EGD, TRANSORAL; WITH PLACEMENT OF ENDOSCOPIC STENT (WRVU 4.17) (N/A Esophagus) Diagnosis: Acute necrosis of pancreas (necrsoectomy - please allow 90 minutes for EGD - 4-6 weeks) Surgeons: Manav Hale MD Responsible Provider: Bennett Mckenzie MD Anesthesia Type: general ASA Status: 3 All Anesthesia Providers: Anesthesiologist: Bennett Mckenzie MD COKE OVEN PATCHER: Tete Munoz CRNA Vitals Value Taken Time BP 99/68 06/10/21 1540 Temp Pulse Resp SpO2 97 % 06/10/21 1545 Pain Level Vitals shown include unvalidated device data. Patient Location: PACU/[facility] Level of Consciousness: Awake and Alert Pain Management: Satisfactory Analgesia PONV: None Cardiovascular Status: At Baseline and Hemodynamically Stable Respiratory Status: At Baseline and Room Air Postoperative Fluid Status: Intravascular EUvolemia Possible Anesthetic Complications: NONE apparent at time of evaluation Final Primary Anesthesia Type: General (The anesthetic type performed was the same as planned.) Comments: Bennett Mckenzie MD * Anesthesia Preprocedure Evaluation - Magalys Davila MD - 06/09/2021 9:52 PM EST Pre-Anesthesia Evaluation for: Pancho Babb a 56 y.o. male. Procedure(s): EGD, UPPER GI ENDOSCOPY Patient Active Problem List Diagnosis ??? Hypertensive crisis ??? Gallstone pancreatitis ??? Vitamin D deficiency ??? Insulin resistance (high c-peptide 8.2 on 08/12/18 and low HDL 34) ??? Diabetes mellitus diagnosed at age 49 (A1c 6.8% in Jun 2015) ??? Hypertension ??? Obesity ??? Hypokalemia ??? Adrenal nodule No past medical history on file. Past Surgical History: Procedure Laterality Date ??? PRO COLONOSCOPY, DIAGNOSTIC N/A 01/14/2016 COLONOSCOPY, DIAGNOSTIC performed by Ruslan Taylor MD at [facility] ? ? PRO EDG FLEXIBLE TRANSORAL ENDOSCOPIC STENT PLACEMENT W/WIRE & DILATION N/A 05/09/2021 EGD, TRANSORAL; WITH PLACEMENT OF ENDOSCOPIC STENT (WRVU 4.17) performed by Manav Hale MD at [facility] ??? PRO ENDOSCOPIC US EXAM, ESOPH N/A 03/10/2021 UPPER EUS- ENDOSCOPIC ULTRASOUND performed by Seb Maldonado MD at [facility] ??? PRO ENDOSCOPIC US EXAM, ESOPH N/A 04/22/2021 UPPER EUS- ENDOSCOPIC ULTRASOUND performed by Manav Hale MD at [facility] ??? PRO ERCP, SPHINCTEROTOMY 03/10/2021 ERCP W/SPHINCTEROTOMY/PAPILLOTOMY performed by Seb Maldonado MD at [facility] ??? PRO ERCP,DIAGNOSTIC N/A 03/10/2021 ERCP performed by Seb Maldonado MD at [facility] ??? PRO LAP, CHOLECYSTECTOMY/GRAPH N/A 03/27/2021 LAPAROSCOPIC CHOLECYSTECTOMY WITH CHOLANGIOGRAM (WRVU 11.47) performed by Sal Marshall MD at [facility] Social History Tobacco Use ??? Smoking status: Never Smoker ??? Smokeless tobacco: Never Used ??? Tobacco comment: never vape Substance Use Topics ??? Alcohol use: Not Currently Comment: occasionally Social History Substance and Sexual Activity Drug Use Not Currently No Known Allergies Medications: MAR and/or home medications have been reviewed. Physical Exam: Preprocedure Vitals Current as of 06/09/21 2152 No BP, pulse, respiration, SpO2, or temperature recorded. Height: Weight: BMI: IBW: Airway Assessment: Mallampati: II TM distance: >3 FB Neck ROM: full Cardiovascular Assessment: system normal Pulmonary Assessment: pulmonary exam normal Dental Assessment: - normal exam Misc Assessment: Patient is wearing No contact(s). IV access: Peripheral line Last Filed Perioperative Cognitive Screening None Anesthesia Plan: ASA 3 general, with a(n) intravenous induction 56 year old male presenting for EGD for necrosectomy via indwelling cystgastrostomy for WOPN placed2 weeks ago. PMH notable for HTN, DM, gallstone pancreatitis. Previously Gr2v with Tobar 2 and Gr1v with Mac 4. Allergy: No Known Allergies BP Readings from Last 3 Encounters: 05/09/21 : 106/61 04/22/21 : 131/76 03/27/21 : 120/70 Labs: Lab Results Component Value Date WBC 11.0 (H) 02/16/2021 HGB 10.7 (L) 02/16/2021 HCT 32.1 (L) 02/16/2021 MCV 92.5 02/16/2021 PLATELET 430 (H) 02/16/2021 Lab Results Component Value Date NA 137 02/16/2021 K 4.8 02/16/2021 CL 104 02/16/2021 CO2 25 02/16/2021 BUN 11 02/16/2021 CREATININE 0.64 (L) 02/16/2021 GLUCOSE 172 02/16/2021 GLUCFASTING 166 (H) 02/15/2021 CALCIUM 8.9 02/16/2021 ESTGFR 109 02/16/2021 Lab Results Component Value Date ALT 193 (H) 02/16/2021 AST 99 (H) 02/16/2021 ALKPHOS 387 (H) 02/16/2021 BILITOT 0.3 02/16/2021 BILIDIR 0.1 02/16/2021 ALBUMIN 3.3 02/16/2021 PROT 6.8 02/16/2021 Lab Results Component Value Date PT 12.2 02/04/2021 PTT 26 02/04/2021 Lab Results Component Value Date TSH 1.83 02/25/2016 Lab Results Component Value Date HA1C 5.4 06/24/2020 Glucose Lvl Date Value Ref Range Status 02/16/2021 172 65 - 199 mg/dL Final Comment: Diabetes: >=200 mg/dL plus symptoms Plan is GA/ETT with standard monitors and adequate PIV access. The patient was informed of the risks, benefits and alternatives of anesthesia. These risks included, but were not limited to, post-operative nausea and/or vomiting, pain, sore throat, dental/lip trauma, and other rare but serious complications such as major organ damage, awareness, severe allergicreactions, position-related nerve injuries, corneal abrasion/blindness and need blood transfusions.All questions were sought and answered. Consent was signed and placed in chart. Region - Other Informed Consent: Anesthetic plan and risks discussed with patient. Plan discussed with COKE OVEN PATCHER. Anesthesia Screening documented in this encounter Plan of Treatment Not on file documented as of this encounter Visit Diagnoses Not on filedocumented in this encounter Administered Medications Inactive Administered Medications - up to 3 most recent administrations Medication Order MAR Action Action Date Dose Rate Site lactated ringers infusion 100 mL/hr, Intravenous, CONTINUOUS, Starting on Wed06/10/21 at 1230, Until Wed06/10/21 at 1548, Endoscopy (Day of Procedure) New Bag 06/10/2021 12:41 PM EST lidocaine (pf) (Xylocaine) (20 mg/mL) 2% injection syringe Intravenous, PRN, Starting on e 06/10/21 at 1244, Until 06/10/21 at 1510, Anesthesia Intra-op, Routine Given 06/10/2021 12:44 PM EST 50 mg PHENYLephrine in NS (PF) (CODY-SYNEPHRINE) 0.8 mg/10 mL (80 mcg/mL) multi-dose injection Syrg Intravenous, PRN, Starting on e 06/10/21 at 1313, Until Wed06/10/21 at 1510, Anesthesia Intra-op, Routine Given 06/10/2021 2:19 PM EST 160 mcg Given 06/10/2021 1:13 PM EST 160 mcg propofoL (Diprivan) (10 mg/mL) infusion Intravenous, CONTINUOUS PRN, Starting on e 06/10/21 at 1244, Until 06/10/21 at 1510, Anesthesia Intra-op, Routine Rate/Dose Change 06/10/2021 1:11 PM EST 200 mcg/kg/min 95.28 mL/hr Rate/Dose Change 06/10/2021 12:59 PM EST 250 mcg/kg/min 11 9.1 mL/hr New Bag 06/10/2021 12:44 PM EST 200 mcg/kg/min 95.28 mL /hr propofoL (Diprivan) 10 mg/mL bolus injection (Anesthesia) Intravenous, PRN, Starting on Wed06/10/21 at 1244, Until Wed06/10/21 at 1510, Anesthesia Intra-op Given 06/10/2021 12:59 PM EST 50 mg Given 06/10/2021 12:44 PM EST 200 mg succinylcholine (Anectine;Quelicin) (20 mg/mL) injection Intravenous, PRN, Starting on Wed06/10/21 at 1244, Until Wed06/10/21 at 1510, Anesthesia Intra-op, Routine Given 06/10/2021 12:44 PM EST 100 mg documented in this encounter Care Teams It Data Architect Relationship Specialty Start Date End Date Peña Turner DO [address] [place] [address] PCP - General 05/13/10 07/21/21 documented as of this encounter
--- OUTSIDE RECORDS SUMMARY | 2024-06-12 14:14 | XMS_ITS | Encounter Summary ---
Author Organization [facility] Address [facility] [place] [address] Care Team Providers Care Audiology Assistant Name Role Phone Johnny Peña WALDRON Primary Care Provider [phone] Reason for Visit * Auth/Cert Specialty Diagnoses / Procedures Referred By Tavia t Referred To Contact Diagnoses Gallstone pancreatitis infected necrotic colection cystogastrostomy back and forth Procedures PRO ENDOSCOPIC US EXAM, ESOPH PRO ANESTH, COMBINED UPPER OR LOWER ENDOSCOPY UPPER EUS- ENDOSCOPIC ULTRASOUND Referral ID Status Reason Start Date Expiration Date Visits Re quested Visits Authorized [id number] 1 1 Encounter Details Date Type Department Care Team (Latest Contact Info) Description 04/22/2021 11:17 AM EDT - 04/22/2021 4:14 PM EDT Hospital En[place] [address] Manav Hale MD [facility] [place] [address] Discharge Disposition: Other Short Term [facility] Social History Tobacco Use Types Packs/Day Years [...] Sign Reading Time Taken Comments Blood Pressure 131/76 04/22/2021 3:40 PM EDT Pulse 90 04/22/2021 11:28 AM EDT Temperature 36.3 ??C (97.4 ??F) 04/22/2021 11:28 AM E DT Respiratory Rate - - Oxygen Saturation 95% 04/22/2021 3:40 PM EDT Inhaled Oxygen Concentration - - Weight 91.2 kg (201 lb) 04/22/2021 11:28 AM EDT Height 177.8 cm (5' 10) 04/22/2021 11:28 AM EDT Body Mass Index 28.84 04/22/2021 11:28 AM EDT documented in this encounter Medications at Time [...] Tablet Take 20 mg by mouth daily. amLODIPine (Norvasc) 5 mg Tablet Take 1 tablet by mouth daily. 90 tablet 3 02/16/2021 08/29/2021 oxyCODONE (Roxicodone) 5 mg Tablet Take 1 tablet by mouth every 3 hours as needed for Pain. 24 tablet 02/16/2021 08/29/2021 spironolactone (ALDACTONE) 25 mg Tablet TAKE ONE TABLET BY MOUTH TWICE A DAY 180 tablet 3 05/23/2018 08/29/2021 documented as of this encounter H&P Notes * Geo Boucher S - 04/22/2021 11:54 AM EDT Gastroenterology and Hepatology Pre-Procedure History and Physical Exam Procedure: EUS +/- cystogastrostomy Indication: Concern for infected peripancreatic fluid collection Patient Active Problem List Diagnosis Code ??? Diabetes mellitus diagnosed at age 49 (A1c 6.8% in Jun 2015) E11.9 ??? Hypertension I10 ??? Obesity E66.9 ??? Hypokalemia E87.6 ??? Adrenal nodule E27.8 ??? Insulin resistance (high c-peptide 8.2 on 08/12/18 and low HDL 34) E88.81 ??? Vitamin D deficiency E55.9 ??? Gallstone pancreatitis K85.10 ??? Hypertensive crisis I16.9 EXAM: HEENT: Airway examined, oropharynx clear Mallampati Score: II (soft palate, uvula, fauces visible) LUNGS: Clear to auscultation HEART: Regular rate and rhythm, normal S1, S2 ABDOMEN: Normal bowel sounds, soft, non tender, non distended A/P: Proceed with the planned endoscopic procedure. ASA 3 - Patient with moderate systemic disease with functional limitations Sedation Plan: anesthesia Risks and benefits of the procedure explained to the patient. Consent form signed and included in the patient's chart. Geo Boucher MD PGY-5, Gastroenterology documented in this encounter Plan of Treatment Pending Results Name Type Priority Associated Diagnoses Date /Time XR ERCP Imaging Storage Only Routine 07/2020 1:41 PM EDT Scheduled Orders Name Type Priority Associated Diagnoses Orde r Schedule XR ERCP Imaging Storage Only Routine Once PRN (for Radiant use) for 1 Occurrences starting 04/22/2021 until 04/22/2021 documented as of this encounter Procedures Procedure Name Priority Date/Time Associated Diagnosis Comments POCT GLUCOSE Routine 04/22/2021 4:00 PM EDT Endoscopic Us Exam, Esoph ([id number]) 04/22/2021 1:21 PM EDT infected necrotic colection cystogastrostomy back and forth UPPER EUS-ENDOSCOPIC ULTRASOUND Routine 04/22/2021 12:56 PM EDT POCT GLUCOSE Routine 04/22/2021 11:34 AM EDT documented in this encounter Results * POCT Glucose (04/22/2021 4:00 PM EDT) Glucose, POC 86 65 - 199 mg/dL [facility] Comment: Supplemental ranges: <140 mg/dL before meals <180 mg/dL all other times of the day Blood 04/22/2021 4:00 PM EDT 04/22/2021 4:00 PM EDT Manav Hale MD POINT OF CARE TEST ORDERABLES [facility] [place] [address] * UPPER EUS-ENDOSCOPIC ULTRASOUND (04/22/2021 12:56 PM EDT) Pathologist [facility] UPPER ENDOSCOPIC ULTRASOUND [facility] Endoscopy Procedure Date: 04/22/2021 12:56 PM ? Patient Name: Pancho Babb ? [facility]: [id number] ? Date of : 1965 ? Age: 56 ? Order #: [id number] ? Instrument Name: [id number] ? Procedure: ? Upper EUS Indications: ? WOPN for debridement Providers: ? Manav Hale MD, Neej J. ? Aruna Del Valle, Mary Lou Campbell, ? Cecilia Majano, Coach Driver Referring MD: ? Medicines: ? General Anesthesia Complications: ? No [...] the third part ? of duodenum. The Endoscope was ? introduced through the mouth, and ? advanced to the antrum of the ? stomach. The upper EUS was ? accomplished without difficulty. The ? patient tolerated the procedure well. ? Findings: ? ENDOSCOPIC FINDING: : ? The examined esophagus was endoscopically normal. ? The entire examined stomach was endoscopically normal ? with the exception of a diffuse bulge along the ? lesser curvature. ? The examined duodenum was endoscopically normal. ? ENDOSONOGRAPHIC FINDING: : ? The EUS exam revealed the large fluid collection ? along the lesser curve of th stomach - it was at ? least 15 cm in maximum diameter and had both liquid ? and solid debris. We isolated a location in the body ? of the stomach where the distance between the gastric ? wall and collection was less than 10 mm. We then ? deployed a 15 mm HOT AXIOS in standard fashion and ? this appeared to be in excellent position ? endoscopically, fluroscopically and ? endosonographicall y. We dilated the stent with a 15 ? TTS balloon and then entered the cavity with a ? therapeutic gastroscope. There was dense solid debris ? within the cavity consistent with necrosis and some ? time was spent debriding with a cold snare. We then ? infused hydrogen peroxide/saline mixture 350 cc (1/3 ? ratio) and then placed a 10 fr x 4 cm Solus stent ? Moderate Sedation: ? Not applicable - See Anesthesia documentation Impression: ?- WOPN s/p AXIOS stent placement and ? debridement Recommendation: ?- Return to [facility] ? - Advance diet as tolerated ? - We will schedule back for repeat ? necrosectomy in ~ 3 weeks ? Attending Participation: ? I personally performed the entire procedure. ? ___ Manav Hale MD 04/22/2021 2:28:21 PM This report has been signed electronically. Number of Addenda: 0 Note Initiated On: 04/22/2021 12:56 PM PROVATION 04/22/2021 12:5 6 PM EDT Unknown GENERAL SURGICAL ORD ERABLES PROVATION * POCT Glucose (04/22/2021 11:34 AM EDT) Glucose, POC 98 65 - 199 mg/dL [facility] Comment: Supplemental ranges: <140 mg/dL before meals <180 mg/dL all other times of the day Blood 04/22/2021 11:3 4 AM EDT 04/22/2021 11:34 AM EDT Manav Hale MD POINT OF CARE TEST ORDERABLES [facility] [place] [address] documented in this encounter Visit Diagnoses Not on filedocumented in this encounter Administered Medications Inactive Administered Medications - up to 3 most recent administrations Medication Order MAR Action Action Date Dose Rate Site HYDROmorphone (Dilaudid) (2 mg/mL) injection solution 1 mg 1 mg, Intravenous, ONCE, 1 dose, On Wed04/22/21 at 1300, Endoscopy (Day of Procedure), Routine Given 04/22/2021 12:35 PM EDT 1 mg HYDROmorphone (Dilaudid) (2 mg/mL) injection solution 1 mg 1 mg, Intravenous, ONCE, 1 dose, On Wed04/22/21 at 1630, Endoscopy (Day of Procedure), Routine Given 04/22/2021 4:00 PM EDT 1 mg lactated ringers infusion 100 mL/hr, Intravenous, CONTINUOUS, Starting on e 04/22/21 at 1145, Until Wed04/22/21 at 1814, Endoscopy (Day of Procedure) Restarted 04/22/2021 1:21 PM EDT New Bag 04/22/2021 11:37 AM EDT 100 mL/hr 100 mL/hr documented in this encounter Active and Recently Administered Medications Times are shown in EDT. Scheduled Medication Order 04/20/2021 04/21/2021 04/22/2021 HYDROmorphone (Dilaudid) (2 mg/mL) injection solution 1 mg (COMPLETED) 1 mg, Intravenous, ONCE, 1 dose, On Wed04/22/21 at 1300, Endoscopy (Day of Procedure), Routine 1235 (Given - Provid er: Anny Peguero RN) HYDROmorphone (Dilaudid) (2 mg/mL) injection solution 1 mg (COMPLETED) 1 mg, Intravenous, ONCE, 1 dose, On Wed04/22/21 at 1630, Endoscopy (Day of Procedure), Routine 1600 (Given - Provid er: Anny Peguero RN) Continuous Medication Order 04/20/2021 04/21/2021 04/22/2021 lactated ringers infusion 100 mL/hr, Intravenous, CONTINUOUS, Starting on Wed04/22/21 at 1145, Until Wed04/22/21 at 1814, Endoscopy (Day of Procedure) 1137 (New Bag - Prov ider: Anny Peguero RN)1320 (Paused - Provider: Katheryn Santos CRNA - Comment: Switch to gravity)1321 (Restarted - Provider: Katheryn Santos CRNA)1340 (Anesthesia Volume Adjustment - Provider: Katheryn Santos CRNA)1400 (Anesthesia Volume Adjustment - Provider: Katheryn Santos CRNA) documented in this encounter Care Teams Audiology Assistant Relationship Specialty Start Date End Date Peña Turner DO [address] [place], [place] [address]Y [facility] [address] [place] [address] PCP - General 05/13/10 07/21/21 documented as of this encounter
--- OUTSIDE RECORDS SUMMARY | 2024-06-12 14:14 | XMS_ITS | Encounter Summary ---
Author Organization [facility] Address [facility] [place] [address] Care Team Providers Care Thoroughbred Horse Farm Manager Name Role Phone Peña Turner DO Primary Care Provider [phone] Encounter Details Date Type Department Care Team (Late st Contact Info) Description 05/09/2021 11:30 AM EST - 05/09/2021 1:15 PM EST Surgery [place] [address] [facility] [place] [place] [address] EGD, TRANSORAL; WITH PLACEMENT OF ENDOSCOPIC STENT (WRVU 3.92) Social History Tobacco Use Types Packs/Day Years [...] Sign Reading Time Taken Comments Blood Pressure 99/72 05/09/2021 10:28 AM EST Pulse 98 05/09/2021 10:28 AM EST Temperature 37 ??C (98.6 ??F) 05/09/2021 10:28 AM EST Respiratory Rate 16 05/09/2021 10:28 AM EST Oxygen Saturation 97% 05/09/2021 10:28 AM EST Inhaled Oxygen Concentration - - Weight 85.7 kg (189 lb) 05/09/2021 10:28 AM EST Height 177.8 cm (5' 10) 05/09/2021 10:28 AM EST Body Mass Index 27.12 05/09/2021 10:28 AM EST documented in this encounter Discharge Instructions * Discharge Instructions* Pancho Vazquez RN - 05/09/2021 1:27 PM EST Upper [...] the day after the procedure, use an muvm-mno-tpoqwvx spray to numb your throat. Sucking on [...] occurs, please contact your Doctor. Please call [phone] before 8pm Mon-Fri with problems, questions or concerns. If you call after 8pm or on weekends, call the Hospital at [phone] and ask to speak to the Foam Rubber Molder media production manager and the slackline operator will contact that person for you. When should you call for help? Call [phone] anytime you think you may need emergency [...] any problems. Where can you learn more? [facility] View your After Visit Summary and more online at [email or web address] If you would like to provide feedback about your hospital experience, please call the Office of Patient and Family Relations at . If you have received this After Visit Summary in error, please immediately return it in person to the department, or notify the [facility] Privacy Office by calling toll free at between the hours of 8AM and 5PM to arrange for our retrieval of the documents at no cost to you. Content Version: 12.2 ?? [id number] [employer]. Care instructions adapted under license by [facility]. If you have questions about a medical condition or this instruction, always ask your healthcare professional. [employer] disclaims any warranty or liability for your [...] the day after the procedure, use an smfi-acp-lqstinj spray to numb your throat. Sucking on [...] occurs, please contact your Doctor. Please call [phone] before 8pm Mon-Fri with problems, questions or concerns. If you call after 8pm or on weekends, call the Hospital at [phone] and ask to speak to the Foam Rubber Molder media production manager and the slackline operator will contact that person for you. When should you call for help? Call [phone] anytime you think you may need emergency [...] any problems. Where can you learn more? [facility] View your After Visit Summary and more online at [email or web address] If you would like to provide feedback about your hospital experience, please call the Office of Patient and Family Relations at . If you have received this After Visit Summary in error, please immediately return it in person to the department, or notify the [facility] Privacy Office by calling toll free at between the hours of 8AM and 5PM to arrange for our retrieval of the documents at no cost to you. Content Version: 12.2 ?? [id number] [employer]. Care instructions adapted under license by [facility]. If you have questions about a medical condition or this instruction, always ask your healthcare professional. [employer] disclaims any warranty or liability for your [...] Flexible Transoral Endoscopic Stent Placement W/Wire & Dilation(59053) 05/09/2021 11:46 AM EST Pancreatic necrosis UPPER GI ENDOSCOPY Routine 05/09/2021 11 :44 AM EST documented in this encounter Results * UPPER GI ENDOSCOPY (05/09/2021 11:44 AM EST) UPPER GI ENDOSCOPY [facility] Endoscopy Procedure Date: 05/09/2021 11:44 AM ? Patient Name: Pancho Babb ? Date of : 1965 ? Age: 56 ? Order #: [id number] ? Instrument Name: [id number] ? Procedure: ? Upper GI endoscopy Indications: ? Direct endoscopic necrosectomy Providers: ? Manav Hale MD, Neej J. ? Patrick Del Valle Kristin K. ? Melecio, Supervisor [employer]ans Referring : ?Peña Turner, DO Medicines: ? 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
--- OUTSIDE RECORDS SUMMARY | 2024-06-12 14:14 | XMS_ITS | Clinical Summary ---
Author Organization [facility] Address [facility] [place] [address] Care Team Providers Care Telecommunications Professional Name Role Phone Unknown Primary Care Provider Unavailabl e Allergies No known active allergies Medications Medication Sig Dispensed Refills Start Date End Date Status lisinopril (PRINIVIL;ZESTRIL) 20 mg Tablet Take 20 mg by mouth daily. Active metFORMIN XR (Glucophage XR) 500 mg Tablet Sustained Release 24 hr Take 3 tablets by mouth daily. 270 tablet 3 06/24/2020 Active Additional Information Patient taking differently: 1,000 mgOral DAILY, Reported on 08/29/2021 ergocalciferoL, vitamin D2, (vitamin D) 50,000 unit Capsule Take 1 capsule by mouth once a week. 13 capsule 4 06/24/2020 Active Additional Information Patient taking differently:50,000 Units Oral WEEKLY,Fridays, Reported on 03/26/2021 spironolactone (Aldactone) 25 mg Tablet Take 1 tablet by mouth daily. 08/29/2021 Active gkqxbi-xtowceng-dc ylase (Creon 24) 24,000-76,000 -120,000 unit Capsule, Delayed Release(E.C.) Take 2 capsules by mouth 3 times daily. Active Active Problems Problem Noted Date Diagnosed Date Hypertensive crisis 02/06/2021 Gallstone pancreatitis 02/04/2021 Vitamin D deficiency 08/15/2018 Insulin resistance (high c-p eptide 8.2 on 08/12/18 and low HDL 34) 08/14/2018 Diabetes mellitus diagnosed at age 49 (A1c 6.8% in Jun 2015) 05/20/2017 Hypertension 05/20/2017 Obesity 05/20/2017 Hypokalemia 05/20/2017 Adrenal nodule 05/20/2017 Resolved Problems Problem Noted Date Diagnosed Date Resolved Date Acute respiratory failure 02/04/2021 REJI (acute kidney injury) 02/04/2021 Immunizations Name Administration Dates Next Due Td Adult (not absorbed) 04/23/2004 Social History Tobacco Use Types Packs/Day Years Used Date Smoking Tobacco: Never Smokeless Tobacco: Never Comments:never vape Alcohol Use Standard Drinks/Week Comments Not Currently 0 (1 standard drink = 0.6 oz pur e alcohol) one year sober Sex and Gender Information Value Date Recorded Sex Assigned at Not on file Gender Identity Not on file Sexual Orientation Not on file Last Filed Vital Signs Vital Sign Reading Time Taken Comments Blood Pressure 165/88 04/27/2022 1:14 PM EST Pulse 59 04/27/2022 1:14 PM EST Temperature 36.7 ??C (98 ??F) 07/22/2021 12:47 PM EST Respiratory Rate 10 08/29/2021 9:04 AM EST Oxygen Saturation 99% 07/22/2021 5:15 PM EST Inhaled Oxygen Concentration - - Weight 92 kg (202 lb 14.4 oz) 04/27/2022 1:14 PM EST Height 177.8 cm (5' 10) 04/27/2022 1:14 PM EST Body Mass Index 29.11 04/27/2022 1:14 PM EST Plan of Treatment Health Maintenance Due Date Last Done Comments CT Colonography 1964 FIT DNA 1964 FIT 1964 Sigmoidoscopy 1964 DM Opthalmology Exam 1974 DM Urine Microalbumin yearly 1974 HIV screen 1982 Hepatitis C Screening 1982 Pneumococcal Vaccine: At-Ris k 5-64yrs (1 of 2 - PCV) 1983 Tetanus/Diphtheria/Pertussis Vaccines (1 - Tdap) 04/24/2004 04/23/2004 Zoster vaccine (1 of 2) 2014 Advance Directive 2019 DM Hemoglobin A1c 09/22/2020 06/24/2020, , 08/12/2018, Additional history exists DM Creatinine yearly 02/16/2022 02/16/2021, 02/15/2021, 02/14/2021, Additional history exists Colonoscopy 01/13/2023 01/14/2016, 01/14/2016 Colorectal Cancer Screening 01/13/2023 Covid-19 Vaccine (1 - 2023-2 5 season) 2024 Influenza (Flu) vaccine (1 o f 1 - Influenza standard series) 02/20/2024 Lipid Screening 02/22/2024 02/21/2019, 02/25/2016 Sigmoidoscopy (10 year) with FIT yearly 01/13/2026 01/14/2016, 01/14/2016 Medical Devices Implanted Type Area Draw Fire Operator Device Identifier Shelf Expiration Date Model / Serial / Lot Stent Axios [id number] Ss Electro Enhanced Delivery System ([id number]) - [id number] Implanted:Qty : 1 on 04/22/2021 by Manav Hale MD at [facility] IMPLANTS N/A: Abdomen [employer] - [employer] 10/10/2022 [id number] / / [id number] Stent Set Solus [id number] Plastic Double Pigtail ([id number]) - [id number] Implanted:Qty : 1 on 04/22/2021 by Manav Hale MD at [facility] IMPLANTS N/A: Abdomen [employer] 11/16/2023 ZSS-10-4- RB / / [id number] Stent Set Solus [id number] Plastic Double Pigtail ([id number]) - [id number] Implanted:Qty : 5 on 06/10/2021 by Manav Hale MD at [facility] IMPLANTS N/A: Stomach [employer] [facility] Viraliti ZSS-10-4- RB / / [id number] Description:cystgastrostomy solus x 4 10frx 4cm Stent Set Solus [id number] Plastic Double Pigtail ([id number]) - [id number] Implanted:Qty : 1 on 07/22/2021 by Manav Hale MD at [facility] IMPLANTS N/A: Pancreas [employer] [facility] Vir[employer] ZSS-10-4- RB / / Procedures Procedure Name Priority Date/Time Associated Diagnosis Comments BASIC METABOLIC PANEL Routine 02/16/2021 4:36 AM EDT HC HEMOGLOBIN A1C Routine 06/24/2020 5:0 4 PM EST Adrenal nodule Vitamin D deficiency Controlled type 2 diabetes mellitus without complication, without long-term current use of insulin Dyslipidemia LIPID PANEL (REFLEX DIRECT LDL) Routine 02/21/2019 1:05 PM EDT COLONOSCOPY Routine 01/14/2016 2:56 PM EDT from Last 3 Months or Most Recently Relevant to Health Maintenance Results * (ABNORMAL) Basic Metabolic Panel (non-fasting) (02/16/2021 4:36 AM EDT) Glucose 172 65 - 199 mg/dL [facility] Comment:Diabetes: >=200 mg/d L plus symptoms Blood Urea Nitrogen 11 10 - 20 mg/dL [facility] Creatinine 0.64(L) 0.80 - 1.50 mg/dL [facility] Sodium 137 135 - 145 mmol/L [facility] Potassium 4.8 3.5 - 5.0 mmol/L [facility] Comment: Please note: ??Patients with WBC >100,000 may have falsely elevated Potassium levels. ??For accurate Potassium quantification in these patients send serum separator tube (gold top) for subsequent determinations. ??Contact the Clinical Chemistry Laboratory if there are any questions. Chloride 104 98 - 107 mmol/L [facility] Carbon Dioxide 25 22 - 31 mmol/L [facility] Anion Gap 8 5 - 15 mmol/L [facility] Calcium 8.9 8.5 - 10.5 mg/dL [facility] Est Glomerular Filtration Rate 109 >=60 mL/min/1. 73 m?? [facility] Comment: This patient? s estimated glomerular filtration rate (eGFR) is between 109 mL/min/1.73 m2 (patients with less muscle mass per kg body weight) and 127 mL/min/1.73 m2 (patients with more muscle mass per kg body weight) as determined by the CKD-EPI equation. Assessment of eGFR is not appropriate when creatinine concentrations are rapidly changing. For clinical decisions where creatinine clearance will affect therapy, a 24-hour urine creatinine clearance may be advised. Assignment of CKD stage 1 - 5 for patients with an eGFR near the transition point between stages may be based on clinical assessment of muscle mass and symptoms in addition to eGFR. Blood 02/16/2021 4:36 AM EDT 02/16/2021 5:17 AM EDT Narrative Resulting Agency Comment Spec In Lab Vazquez Nj CHEMISTRY ORDERABLES [facility] [place] [address] * Hemoglobin A1c (06/24/2020 5:04 PM EST) Hemoglobin A1c 5.4 4.3 - 5.6 % [facility] Comment: Reference Range: 4.3 - 5.6% 5.7 - 6.4% - Increased Risk of Developing Diabetes Mellitus >= 6.5% - Consistent with diagnosis of Diabetes Mellitus In the absence of hyperglycemia (i.e. plasma glucose > 200 mg/dL) or classic symptoms of hyperglycemia a repeat measurement of HbA1c should be performed on a separate sample to confirm the diagnosis. Diagnosis and Classification of Diabetes Mellitus, Diabetes Care 2013; 36: Suppl. 1, U17-87 Estimated Average Glucose 110 mg/dL [facility] Comment: eAG equivalents for HbA1c percentages: HbA1c(%) ?eAG(mg/dL) 6.0 ?126 6.5 ?140 7.0 ?154 7.5 ?169 8.0 ?183 8.5 ?197 9.0 ?212 9.5 ?226 10.0 ? 240 Limitations: The eAG calculation has not been validated on women, individuals below 18 years old and above 70 years old, and individuals with hemoglobinopathies. Additional resources are available on the ADA website. Alan ELIAS, Latisha J, Kaleigh R, et al. ??Translating the A1C assay into estimated average glucose values. ??Diabetes Care 2008:31(8):9838-5585. Blood specimen (specimen) 06/24/2020 5:04 PM EST 06/24/2020 5:28 PM EST Narrative Resulting Agency Comment Spec In Lab Celso Raza MD CHEMISTRY ORDERAB LES [facility] [place] [address] * Lipid Panel (02/21/2019 1:05 PM EDT) Pathologist [facility] Cholesterol, Total 160 mg/dL [facility] Comment: Lower Risk: <200 mg/dL Average Risk: 200-239 mg/dL Higher Risk: >wi=706 mg/dL Triglyceride 80 mg/dL [facility] Comment: Average Risk/Lower Risk: <150 mg/dL Borderline High Risk: 150-199 mg/dL High Risk: 200-499 mg/dL Very High Risk: >dm=231 mg/dL HDL Cholesterol 42 mg/dL [facility] Comment: Males: ?? Higher Risk: <40 mg/dL Females: ?? HIgher Risk: <50 mg/dL LDL Cholesterol 102 mg/dL [facility] Comment: Lowest Risk: <100 mg/dL Lower Risk: 100-129 mg/dL Borderline High Risk: 130-159 mg/dL High Risk: 160-189 mg/dL Very High Risk: >jh=155 mg/dL Cholesterol/HDL Ratio 3.8 ratio [facility] Lipid Interpretation See Note [facility] Comment: Lipid management should be guided by a patient? s ASCVD risk, goals and preferences. ACC/AHA Guidelines recommend high intensity statin if clinical ASCVD or LDL greater than or equal to 190 mg/dL. [email or web address] Adults aged 40-75 with LDL 70-189 mg/dL should have their 10 year ASCVD risk estimated with the ACC/AHA ASCVD risk commercial estimator http://tools.acc.org/OWJBU-Vifw-Nmrcghqhi/ Statin should be discussed if risk greater than or equal to 7.5% in non-diabetics. With diabetes, moderate intensity statin is recommended if risk less than 7.5%, high intensity if risk greater than or equal to 7.5%. Annual lipid monitoring on statins is not necessary. Evaluate secondary causes of Triglycerides greater than 500 mg/dL or LDL greater than 190 mg/dL: See table 6 of ACC/AHA Guideline. Lifestyle modification is a critical component of ASCVD risk reduction. Blood specimen (specimen) Venous Draw / Unknown 02/21/2019 1:05 PM EDT 02/21/2019 1:22 PM EDT Narrative Resulting Agency Comment Spec In Lab Celso Raza MD CHEMISTRY ORDERAB LES [facility] [place] [address] * COLONOSCOPY (01/14/2016 2:56 PM EDT) COLONOSCOPY [facility] Endoscopy Patient Name: Pancho Babb ? Procedure Date: 01/14/2016 2:56 PM ? Date of : 1965 ? Age: 50 ? Order #: [id number] ? Procedure: ? Colonoscopy Indications: ? Follow-up for history of adenomatous ? polyps in the colon Providers: ? Ruslan Taylor MD, Syl Preston ? VITOR Russell, Anneliese Saucedo, ? Conveyor Technician Referring : ?Peña Turner, DO Medicines: ? Midazolam 6 mg IV, Fentanyl 250 ? micrograms IV Complications: ? No immediate complications. Procedure: ? The procedure, indications, benefits, ? risks and alternatives were explained ? to the patient. Specifically ? discussed were potential ? complications including, but not ? limited to, bleeding, perforation, ? infection, missing a cancer, and ? adverse medication reactions. The ? patient was placed in the left ? lateral decubitus position, and a ? digital rectal exam was performed. ? The Colonoscope was inserted in the ? anus and under direct visualization, ? advanced to the terminal ileum. ? Careful inspection was made as the ? colonoscope was withdrawn. The ? colonoscopy was performed without ? difficulty. The patient tolerated the ? procedure well. The quality of the ? bowel preparation was excellent. ? Scope withdrawal time was 15 minutes. ? Findings: ? A few large-mouthed diverticula were found in the ? sigmoid colon, in the descending colon, in the ? transverse colon and in the ascending colon. ? The terminal ileum appeared normal. ? Internal hemorrhoids were found during retroflexion. ? The hemorrhoids were small. ? Impression: ?- Diverticulosis in the sigmoid ? colon, in the descending colon, in ? the transverse colon and in the ? ascending colon. ? - The examined portion of the ileum ? was normal. ? - Internal hemorrhoids. ? - No specimens collected. Recommendation: ?- Repeat colonoscopy in 7 years for ? surveillance. ? _ Ruslan Taylor MD 01/14/2016 3:39:59 PM This report has been signed electronically. Number of Addenda: 0 Note Initiated On: 01/14/2016 2:56 PM PROVATION 01/14/2016 2:56 PM EDT Peña Obrienderick DO GENERAL SURGICAL ORD ERABLES PROVATION from Last 3 Months or Most Recently Relevant to Health Maintenance Advance Directives Documents on File Type Date Recorded Patient Grill Associate Expl anation Personal Grill Associate 06/16/2021 10:05 AM georgina babb * Attempt Cardiopulmonary Resuscitation - Inpatient (Latest Code Status on File) Date Activated Date Inactivated Comments 03/27/2021 7:07 AM 03/27/2021 5:06 PM Question Answer Comments Code Status decision made by: Patient * Full Code Date Activated Date Inactivated Comments 02/16/2021 10:14 AM 03/10/2021 11:40 AM Question Answer Comments Does patient have capacity to make decision: Yes * Attempt Cardiopulmonary Resuscitation - Inpatient Date Activated Date Inactivated Comments 02/04/2021 11:14 AM 02/16/2021 10:14 AM Question Answer Comments Code Status decision made by: Patient Care Teams Telecommunications Professional Relationship Specialty Start Date End Date Unknown None PCP - General 04/28/22
--- OUTSIDE RECORDS SUMMARY | 2024-06-12 14:14 | XMS_ITS | Encounter Summary ---
Author Organization [facility] Address [facility] [place] [address] Care Team Providers Care Adult Basic Education Manager Name Role Phone Peña Turner DO Primary Care Provider [phone] Encounter Details Date Type Department Care Team (Late st Contact Info) Description 05/01/2021 Telephone [place] [id number] Carolyn Sanders Social History Tobacco Use Types Packs/Day Years [...] encounter Miscellaneous Notes * Telephone Encounter - Carolyn Sanders - 05/01/2021 10:04 AM EST Pancho Babb [id number] Diagnosis/Indication: necrosectomy 1. Have you ever had a/an Upper EUS before? Yes: Date 04/25/21 If yes, did you have any problems with the procedure? No What type of sedation was used: General Anesthesia 2. Do you take any blood thinners or have you been diagnosed with a bleeding disorder that increases your risk of bleeding with procedures? No 3. Do you have a Pacemaker or Defibrillator device? No 4. Are you a diabetic? No 5. Do you have any Allergies to Eggs, Latex or Medications? No 6. Do you take any Oral Iron Supplements (Including multi-vitamins)? No 7. Do you have a history of three or more abdominal surgeries? No 8. Have you had a problem with sedation or anesthesia? No 9. Do you use a c-pap machine or oxygen tank? Neither 10. Do you take prescription narcotic pain medications, including suboxone or methodone? Yes oxycodone/oxycontin 11. Do you have a preference regarding the gender of your provider? Yes: Male 12. Is there any other information you would like to us to note for the provider and nursing team who will perform your case? No 13. Say to patient: You must have a responsible constitution party who will drive you to your procedure, stay [place] for the entire duration of your procedure, and drive you home from your procedure? *Please Verify the height and weight, and adjust if height and/or weight have changed* Estimated body mass index is 28.84 kg/m?? as calculated from the following: Height as of 04/22/21: 177.8 cm (5' 10). Weight as of 04/22/21: 91.2 kg (201 lb). Age:56 y.o. documented in this encounter Plan of Treatment Not on file documented as of this encounter Visit Diagnoses Not on filedocumented in this encounter Care Teams Adult Basic Education Manager Relationship Specialty Start Date End Date Peña Turner DO [address] [place] [address] PCP - General 05/13/10 07/21/21 documented as of this encounter
--- OUTSIDE RECORDS SUMMARY | 2024-06-12 14:14 | XMS_ITS | Encounter Summary ---
Author Organization [facility] Address [facility] [place] [address] Care Team Providers Care Reliability Technicians Name Role Phone Javed Gordon MD Primary Care Provider [phone] Encounter Details Date Type Department Care Team (Late st Contact Info) Description 07/22/2021 1:54 PM EST Anesthesia Event [place] [address] Cameron Yoder MD [facility] [place] [address] Kaden Moss MD [facility] [place] [address] Anesthesia Record Procedure Summary Procedure Name Responsible Anesthesiologist Anesthesia Start Time Anesthesia Stop Time EGD, TRANSORAL; WITH PLACEMENT OF ENDOSCOPIC STENT (WRVU 3.92) (Trunk) Cameron Yoder MD 07/22/21 1354 07/22/21 1633 Events Date Time Event Comment 07/22/2021 1323 1354 AN Verify 1354 Start 1354 An Start Data 1400 An Induction 1402 An Intubation 1403 Anesthesia Ready 1421 Break/Relief In I assumed ca re for Break Relief before which we: 1. Identified the patient 2. Identified the responsible provider(s) 3. Reviewed the pertinent medical history 4. Discussed the surgical plan and course 5. Reviewed intra-op anesthesia management and issues during anesthesia 6. Set expectations for the relief (and/or post-procedure) period 7. Allowed opportunity for questions and acknowledgement of understanding Aminah Keyes, PROPOSAL ENGINEER 1425 Procedure Start 1441 Break/Relief Out 1633 Extubation/LMA Out 1633 an stop data 1633 Recovery or ICU Handoff Liyah ent care was transferred to the destination unit staff after review of the patient's medical history, current anesthetic/surgical status and plan, according to the Provider Handoff Checklist. 1633 Stop Meds Name Total IV Lidocaine 100 mg Propofol 230 mg PHENYLephrine 400 mcg Ondansetron 4 mg Succinylcholine 100 mg Propofol INF 1,570.14 mg Dexmedetomidine 8 mcg Labetalol 10 mg Lactated Ringers 1,000 mL * Agents Name O2 Air N2O Sevoflurane (et) * Blood No blood administrations on file. Lines, Drains, and Airways Type Details Placement Removal Incision 03/27/21; 09; abdomen; laparoscopic punctures (specify) (4 trocar sites) 03/27/21 0954 by Ute Anders, RN (RETIRED) Peripheral IV Line - Single Lumen 04/21/21; 1200; median cubital vein (antecubital fossa), left; cxeg-lpv-riroei catheter system; Anatomical Landmarks; 18 gauge; (placed by outside hospital); 11/25/21 (LDA Cleanup utility RA#[id number]); 1027 (LDA Cleanup utility RA#[id number]) 04/21/21 1200 by Anny Peguero RN 11/25/21 1027 by Sarthak Kimble (RETIRED) Peripheral IV Line - Single Lumen 07/22/21; 1258; cephalic vein (lateral side of arm), right; ptlj-hca-zhkcis catheter system; 20 gauge; skarsten; intradermal injection; 0; 11/25/21 (LDA Cleanup utility RA#[id number]); 1027 (LDA Cleanup utility RA#[id number]) 07/22/21 1258 by Syl Martinez RN 11/25/21 1027 by Sarthak Kimble ETT Mask Ventilation: No t Attempted (0); ETT Type: Cuffed, Oral; ETT Size: 7.5 mm; Mac Blade: 4; Notes: Asleep, Pre-O2, Stylette; Attempts: 1; Laryngoscopy Grade: 1; ETT Placement Verified By: Auscultation, Capnometry, Visual; Secured at Teeth: 23 cm; Inserted by: KYLER Estrada; Removal Date: 07/22/21; Removal Time: 1633 07/22/21 1402 by Edwardo Estrada CRNA 07/22/21 1633 by Edwardo Estrada CRNA documented in this encounter Social History [...] OR Notes * Anesthesia Postprocedure Evaluation - Cameron Yoder MD - 07/22/2021 4:52 PM EST Department of Anesthesiology Post-procedure Note Patient: Pancho Babb Procedure Summary Date: 07/22/21 Room / Location: [facility] ENDO 2 / [facility] ENDOSCOPY Anesthesia Start: 1354 Anesthesia Stop: 1633 Procedure: EGD, TRANSORAL; WITH PLACEMENT OF ENDOSCOPIC STENT (WRVU 4.17) (N/A Trunk) Diagnosis: Necrosis of pancreas (EGD in 6 weeks from 06/10/[address] Hale (60min) for eval of cystgastromy, Solus stent removal, possible necrosectomy) Surgeons: Manav Hale MD Responsible Provider: Cameron Yoder MD Anesthesia Type: general ASA Status: 2 All Anesthesia Providers: Anesthesiologist: Cameron Yoder MD; Kaden Moss MD PROPOSAL ENGINEER: Edwardo Estrada CRNA Vitals Value Taken Time BP 124/80 07/22/21 1710 Temp Pulse Resp 18 07/22/21 1710 SpO2 99 % 07/22/21 1716 Pain Level 0 07/22/21 1710 Vitals shown include unvalidated device data. Patient Location: PACU/[facility] Level of Consciousness: Conscious but Sleepy Pain Management: Satisfactory Analgesia PONV: None Cardiovascular Status: Hemodynamically Stable Respiratory Status: Stable Respiratory Status and Supplemental O2 (NC or FM) Postoperative Fluid Status: Intravascular EUvolemia Possible Anesthetic Complications: NONE apparent at time of evaluation Final Primary Anesthesia Type: MAC (The anesthetic type performed was the same as planned.) Comments: * Anesthesia Preprocedure Evaluation - Kaden Moss MD - 07/22/2021 1:22 PM EST Pre-Anesthesia Evaluation for: Pancho Babb a 56 y.o. male. Procedure(s): EGD, UPPER GI ENDOSCOPY Patient Active Problem List Diagnosis Date Noted ??? Hypertensive crisis 02/06/2021 ??? Gallstone pancreatitis 02/04/2021 ??? Vitamin D deficiency 08/15/2018 ??? Insulin resistance (high c-peptide 8.2 on 08/12/18 and low HDL 34) 08/14/2018 ??? Diabetes mellitus diagnosed at age 49 (A1c 6.8% in Jun 2015) 05/20/2017 ??? Hypertension 05/20/2017 ??? Obesity 05/20/2017 ??? Hypokalemia 05/20/2017 ??? Adrenal nodule 05/20/2017 No past medical history on file. Past Surgical History: Procedure Laterality Date ??? PRO COLONOSCOPY, DIAGNOSTIC N/A 01/14/2016 COLONOSCOPY, DIAGNOSTIC performed by Ruslan Taylor MD at [facility] ENDOSCOPY ? ? PRO EDG FLEXIBLE TRANSORAL ENDOSCOPIC STENT PLACEMENT W/WIRE & DILATION N/A 05/09/2021 EGD, TRANSORAL; WITH PLACEMENT OF ENDOSCOPIC STENT (WRVU 4.17) performed by Manav Hale MD at [facility] ENDOSCOPY ? ? PRO EDG FLEXIBLE TRANSORAL ENDOSCOPIC STENT PLACEMENT W/WIRE & DILATION N/A 06/10/2021 EGD, TRANSORAL; WITH PLACEMENT OF ENDOSCOPIC STENT (WRVU 4.17) performed by Manav aHle MD at [facility] ENDOSCOPY ??? PRO ENDOSCOPIC US EXAM, ESOPH N/A 03/10/2021 UPPER EUS- ENDOSCOPIC ULTRASOUND performed by Seb Maldonado MD at [facility] ENDOSCOPY ??? PRO ENDOSCOPIC US EXAM, ESOPH N/A 04/22/2021 UPPER EUS- ENDOSCOPIC ULTRASOUND performed by Manav Hale MD at [facility] ENDOSCOPY ??? PRO ERCP, SPHINCTEROTOMY 03/10/2021 ERCP W/SPHINCTEROTOMY/PAPILLOTOMY performed by Seb Maldonado MD at [facility] ENDOSCOPY ??? PRO ERCP,DIAGNOSTIC N/A 03/10/2021 ERCP performed by Seb Maldonado MD at [facility] ENDOSCOPY ??? PRO LAP, CHOLECYSTECTOMY/GRAPH N/A 03/27/2021 LAPAROSCOPIC CHOLECYSTECTOMY WITH CHOLANGIOGRAM (WRVU 11.47) performed by Sal Marshall MD at [facility] MA[facility] OR ??? PRO UPPER GI ENDOSCOPY, DIAGNOSTIC N/A 06/10/2021 EGD, UPPER GI ENDOSCOPY performed by Manav Hale MD at [facility] ENDOSCOPY Social History Tobacco Use ??? Smoking status: Never Smoker ??? Smokeless tobacco: Never Used ??? Tobacco comment: never vape Substance Use Topics ??? 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 Physical Exam: Preprocedure Vitals Current as of 07/22/21 1322 BP: 129/79 Pulse: 78 Resp: SpO2: 99 Temp: 36.7 ??C (98 ??F) Height: Weight: 79.4 kg (175 lb) (07/22/21) BMI: IBW: Last edited 07/22/21 1247 by SS Airway Assessment: Mallampati: II TM distance: >3 FB Neck ROM: full Cardiovascular Assessment: Rate: normal Pulmonary Assessment: unlabored breathing Dental Assessment: - normal exam Misc Assessment: IV access: Peripheral line Last Filed Perioperative Cognitive Screening None Anesthesia Plan: ASA 2 general, with a(n) intravenous induction 56 year old male presenting for EGD for necrosectomy via indwelling cystgastrostomy for WOPN placed2 weeks ago. ?? PMH notable for HTN, DM, gallstone pancreatitis. ?? Previously Gr2v with Tobar 2 and Gr1v with Mac 4. Region - Other Informed Consent: Anesthetic plan and risks discussed with patient. Plan discussed with PROPOSAL ENGINEER and attending. Anesthesia Screening documented in this encounter Plan of Treatment Not on file documented as of this encounter Visit Diagnoses Not on filedocumented in this encounter Administered Medications Inactive Administered Medications - up to 3 most recent administrations Medication Order MAR Action Action Date Dose Rate Site dexmedetomidine (Precedex) (4 mcg/mL) bolus injection (Anesthsia) Intravenous, PRN, Starting on Wed07/22/21 at 1452, Until Wed07/22/21 at 1633, Anesthesia Intra-op, Routine Given 07/22/2021 2:52 PM EST 8 mcg labetaloL (Normodyne) (5 mg/mL) multi-dose injection Intravenous, PRN, Starting on Wed07/22/21 at 1456, Until Wed07/22/21 at 1633, Anesthesia Intra-op, Routine Given 07/22/2021 3:05 PM EST 5 mg Given 07/22/2021 2:56 PM EST 5 mg lactated ringers infusion Intravenous, CONTINUOUS PRN, Starting on Wed07/22/21 at 1354, Until Wed07/22/21 at 1633, Anesthesia Intra-op New Bag 07/22/2021 4:03 PM EST New Bag 07/22/2021 1:54 PM EST lidocaine (pf) (Xylocaine) (20 mg/mL) 2% injection syringe Intravenous, PRN, Starting on Wed07/22/21 at 1400, Until Wed07/22/21 at 1633, Anesthesia Intra-op, Routine Given 07/22/2021 2:00 PM EST 100 mg ondansetron (pf) (Zofran) (2 mg/mL) injection Intravenous, PRN, Starting on Wed07/22/21 at 1609, Until Wed07/22/21 at 1633, Anesthesia Intra-op, Routine Given 07/22/2021 4:09 PM EST 4 mg PHENYLephrine in NS (PF) (CODY-SYNEPHRINE) 0.8 mg/10 mL (80 mcg/mL) multi-dose injection Syrg Intravenous, PRN, Starting on Wed07/22/21 at 1317, Until Wed07/22/21 at 1633, Anesthesia Intra-op, Routine Given 07/22/2021 2:32 PM EST 80 mcg Given 07/22/2021 2:30 PM EST 80 mcg Given 07/22/2021 2:24 PM EST 80 mcg propofoL (Diprivan) (10 mg/mL) infusion Intravenous, CONTINUOUS PRN, Starting on Wed07/22/21 at 1400, Until Wed07/22/21 at 1633, Anesthesia Intra-op, Routine Rate/Dose Change 07/22/2021 4:06 PM EST 100 mcg/kg/min 47.64 mL/hr Rate/Dose Change 07/22/2021 3:34 PM EST 150 mcg/kg/min 71. 46 mL/hr Rate/Dose Change 07/22/2021 3:14 PM EST 100 mcg/kg/min 47. 64 mL/hr propofoL (Diprivan) 10 mg/mL bolus injection (Anesthesia) Intravenous, PRN, Starting on Wed07/22/21 at 1400, Until Wed07/22/21 at 1633, Anesthesia Intra-op Given 07/22/2021 2:42 PM EST 30 mg Given 07/22/2021 2:00 PM EST 200 mg succinylcholine (Anectine;Quelicin) (20 mg/mL) injection Intravenous, PRN, Starting on Wed07/22/21 at 1401, Until Wed07/22/21 at 1633, Anesthesia Intra-op, Routine Given 07/22/2021 2:01 PM EST 100 mg documented in this encounter Care Teams Reliability Technicians Relationship Specialty Start Date End Date Javed Gordon MD PCP - General Family Medicine 07/22/21 04/27/22 documented as of this encounter
--- OUTSIDE RECORDS SUMMARY | 2024-06-12 14:14 | XMS_ITS | Encounter Summary ---
Author Organization [facility] Address [facility] [place] [address] Care Team Providers Care Remelt Pan Tank Operator Name Role Phone Javed Gordon MD Primary Care Provider [phone] Encounter Details Date Type Department Care Team (Late st Contact Info) Description 09/15/2021 Telephone [place] [address] Manav Hale MD [facility] [place] [address] Social History Tobacco Use Types Packs/Day Years [...] encounter Miscellaneous Notes * Telephone Encounter - Manav Hale MD - 09/15/2021 9:21 AM EDT I spoke to Mr. Babb today about his CT scan: IMPRESSION ?? 1. Evolutionary changes in post-necrotic scarring and atrophy of the pancreatic neck and body. No persistent focal collection surrounding the cystogastrostomy double pigtail stent. Desmoplastic changes with tethering of the lesser curvature of the stomach and root of the mesentery adjacent to the pancreatic neck and body. 2. Uniform enhancement of unaffected components of the pancreatic head and tail. Mild prominence of the pancreatic duct within the pancreatic tail = 5 mm. 3. Luminal narrowing without intraluminal thrombus at the confluence, most pronounced in the superior mesenteric vein and caudal portal vein. Prominent venous collaterals with new perigastric and paraesophageal varices. We reviewed the CT scan at length. 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 You continue to eat small, frequent, low-fat meals. He will avoid alcohol. I will plan on seeing him in the clinic in 6 months. He knows to contact me in the interim with any questions or concerns. documented in this encounter Plan of Treatment Not on file documented as of this encounter Visit Diagnoses Not on filedocumented in this encounter Care Teams Remelt Pan Tank Operator Relationship Specialty Start Date End Date Javed Gordon MD PCP - General Family Medicine 07/22/21 04/27/22 documented as of this encounter
--- OUTSIDE RECORDS SUMMARY | 2024-06-12 14:14 | XMS_ITS | Encounter Summary ---
[place] [address] Care Team Providers Care Metal Cutter Name Role Phone Peña Turner DO Primary Care Provider [phone] Encounter Details Date Type Department Care Team (Late st Contact Info) Description 04/22/2021 Orders [place] [address] Ryan Del Valle MD Pancreatic necrosis Social History Tobacco Use Types Packs/Day Years [...] REQUEST: EGD, UPPER GI ENDOSCOPY Procedures Routine Pancreatic necrosis Ordered: 04/22/2021 documented as of this encounter Visit Diagnoses Diagnosis Pancreatic necrosis Other specified disease of pancreas documented in this encounter Care Teams Metal Cutter Relationship Specialty Start Date End Date Peña Turner DO [address] [place] [address] PCP - General 05/13/10 07/21/21 documented as of this encounter
--- OUTSIDE RECORDS SUMMARY | 2024-06-12 14:14 | XMS_ITS | Encounter Summary ---
Author Organization [facility] Address [facility] [place] [address] Care Team Providers Care Search Advertising Strategist Name Role Phone Johnny Peña WALDRON Primary Care Provider [phone] Reason for Visit * Auth/Cert Specialty Diagnoses / Procedures Referred By Tavia t Referred To Contact Diagnoses Gallstone pancreatitis infected necrotic colection cystogastrostomy back and forth Procedures PRO ENDOSCOPIC US EXAM, ESOPH PRO ANESTH, COMBINED UPPER OR LOWER ENDOSCOPY UPPER EUS- ENDOSCOPIC ULTRASOUND Referral ID Status Reason Start Date Expiration Date Visits Re quested Visits Authorized [id number] 1 1 Encounter Details Date Type Department Care Team (Late st Contact Info) Description 04/22/2021 11:57 AM EDT - 04/22/2021 1:12 PM EDT [place] [address] Manav Hale MD [facility] [place] [address] UPPER EUS- ENDOSCOPIC ULTRASOUND (WRVU 3.47) Social History Tobacco Use Types Packs/Day Years [...] Sign Reading Time Taken Comments Blood Pressure 157/80 04/22/2021 11:28 AM EDT Pulse 90 04/22/2021 11:28 AM EDT Temperature 36.3 ??C (97.4 ??F) 04/22/2021 11:28 AM E DT Respiratory Rate - - Oxygen Saturation 100% 04/22/2021 11:28 AM EDT Inhaled Oxygen Concentration - - Weight [...] this encounter H&P Notes * Geo Boucher - 04/22/2021 11:54 AM EDT Gastroenterology and [...] 4:00 PM EDT Endoscopic Us Exam, Esoph (24933) 04/22/2021 1:21 PM EDT infected necrotic colection [...] CARE TEST ORDERABLES [facility] [place] [address] * UPPER EUS-ENDOSCOPIC ULTRASOUND (04/22/2021 12:56 PM EDT) Pathologist [facility] UPPER ENDOSCOPIC ULTRASOUND [facility] Endoscopy Procedure Date: 04/22/2021 12:56 PM ? Patient Name: Pancho Babb ? N: [id number] ? Date of : 1965 ? Age: 56 ? Order #: [id number] ? Instrument Name: [id number] ? Procedure: ? Upper EUS Indications: ? WOPN for debridement Providers: ? Manav Hale MD, Neej J. ? Aruna Del Valle, Mary Lou Campbell, ? Cecilia Majano, Neurosurgery Physician Referring MD: ? Medicines: ? General Anesthesia [...] and ? debridement Recommendation: ?- Return to [facility] ? - Advance diet as tolerated ? [...] CARE TEST ORDERABLES [facility] [place] [address] documented in this encounter Visit Diagnoses Not [...] 1 mg, Intravenous, ONCE, 1 dose, On e 04/22/21 at 1300, Endoscopy (Day of Procedure), Routine 1235 (Given - Provid er: Anny Peguero RN) HYDROmorphone (Dilaudid) (2 mg/mL) injection solution 1 mg (COMPLETED) 1 mg, Intravenous, ONCE, 1 dose, On e 04/22/21 at 1630, Endoscopy (Day of Procedure), Routine [...] CRNA) documented in this encounter Care Teams Search Advertising Strategist Relationship Specialty Start Date End Date Peña Turner DO [address] [facility] [place] [address] PCP - General 05/13/10 07/21/21 documented as of this encounter
--- OUTSIDE RECORDS SUMMARY | 2024-06-12 14:14 | XMS_ITS | Encounter Summary ---
[place] [address] Care Team Providers Care Pai Gow Dealer Name Role Phone Peña Turner DO Primary Care Provider Encounter Details Date Type Department Care Team (Late st Contact Info) Description 06/10/2021 Orders [place] [address] Ryan Del Valle MD Necrosis of pancreas Social History Tobacco Use Types [...] REQUEST: EGD, UPPER GI ENDOSCOPY Procedures Routine Necrosis of pancreas Ordered: 06/10/2021 documented as of this encounter Visit Diagnoses Diagnosis Necrosis of pancreas Other specified disease of pancreas documented in this encounter Care Teams Pai Gow Dealer Relationship Specialty Start Date End Date Peña Turner DO [address] [place] [address] PCP - General 05/13/10 07/21/21 documented as of this encounter
--- OUTSIDE RECORDS SUMMARY | 2024-06-12 14:14 | XMS_ITS | Encounter Summary ---
Author Organization [facility] Address [facility] [place] [address] Care Team Providers Care Traffic Checker Name Role Phone Peña Turner DO Primary Care Provider [phone] Encounter Details Date Type Department Care Team (Late st Contact Info) Description 03/27/2021 Interpretation Only [facility] [place] [address] Unknown None Social History Tobacco Use Types Packs/Day Years [...] Procedure Name Priority Date/Time Associated Diagnosis Comments DH OR ENDOSCOPY Routine 03/27/2021 documented in this encounter Results * DH OR Endoscopy (03/27/2021) Anatomical Region Laterality Modality Other 03/27/2021 Narrative 03/27/2021 12:00 AM EDT Photographs - Images Procedure Note Unknown - 03/29/2021 Photographs - Images Unknown EA IMAGES documented in this encounter Visit Diagnoses Not on filedocumented in this encounter Care Teams Traffic Checker Relationship Specialty Start Date End Date Peña Turner DO [address] [place] [address] PCP - General 05/13/10 07/21/21 documented as of this encounter
--- OUTSIDE RECORDS SUMMARY | 2024-06-12 14:14 | XMS_ITS | Encounter Summary ---
Author Organization [facility] Address [facility] [place] [address] Care Team Providers Care Retail Business Analyst Name Role Phone Javed Gordon MD Primary Care Provider [phone] Encounter Details Date Type Department Care Team (Late st Contact Info) Description 07/22/2021 1:30 PM EST - 07/22/2021 2:30 PM EST Surgery [place] [address] Manav Hale MD [facility] [place] [address] EGD, TRANSORAL; WITH PLACEMENT OF ENDOSCOPIC STENT [...] Sign Reading Time Taken Comments Blood Pressure 129/79 07/22/2021 12:47 PM EST Pulse 78 07/22/2021 12:47 PM EST Temperature 36.7 ??C (98 ??F) 07/22/2021 12:47 PM EST Respiratory Rate - - Oxygen Saturation 99% 07/22/2021 12:47 PM EST Inhaled Oxygen Concentration - - [...] the day after the procedure, use an udwp-cvt-nehltzf spray to numb your throat. Sucking on [...] occurs, please contact your Doctor. Please call [phone] before 8pm Mon-Fri with problems, questions or concerns. If you call after 8pm or on weekends, call the Hospital at [phone] and ask to speak to the Net Applications Developer national account representative and the jute bag cutting machine operator will contact that person for you. When should you call for help? Call 361 anytime you think you may need emergency [...] any problems. Where can you learn more? [facility] View your After Visit Summary and more online at [email or web address] If you would like to provide feedback about your hospital experience, please call the Office of Patient and Family Relations at . If you have received this After Visit Summary in error, please immediately return it in person to the department, or notify the [facility] Privacy Office by calling toll free at between the hours of 8AM and 5PM to arrange for our retrieval of the documents at no cost to you. Content Version: 12.2 ?? [id number] [employer]. Care instructions adapted under license by [facility]. If you have questions about a medical condition or this instruction, always ask your healthcare professional. [employer] disclaims any warranty or liability for your [...] Flexible Transoral Endoscopic Stent Placement W/Wire & Dilation(61148) 07/22/2021 1:56 PM EST Necrosis of pancreas UPPER GI ENDOSCOPY Routine 07/22/2021 1: 34 PM EST documented in this encounter Results * UPPER GI ENDOSCOPY (07/22/2021 1:34 PM EST) UPPER GI ENDOSCOPY [facility] Endoscopy Procedure Date: 07/22/2021 1:34 PM ? Patient Name: Pancho Babb ? N: [id number] ? Date of : 1965 ? Age: 56 ? Order #: [id number] ? Instrument Name: [id number] ? Procedure: ? Upper GI endoscopy Indications: ? Necrosectomy Providers: ? Manav Hale MD, Pancho Graff ? Brittany Vazquez, Windows Desktop Engineer Referring MD: ?Peña Turner, DO Medicines: ? General Anesthesia [...] documented in this encounter Visit Diagnoses Diagnosis Necrosis of [...] 1300 (New Bag - Prov ider: Syl Martinez, VITOR)1521 (New Bag - Provider: Patrick Alvarez RN) documented in this encounter Care Teams Retail Business Analyst Relationship Specialty Start Date End Date Javed Gordon MD PCP - General Family Medicine 07/22/21 04/27/22 documented as of this encounter
--- OUTSIDE RECORDS SUMMARY | 2024-06-12 14:14 | XMS_ITS | Encounter Summary ---
[place] [address] Care Team Providers Care Operations Dispatcher Name Role Phone Peña Turner DO Primary Care Provider [phone] Reason for Visit * Auth/Cert Specialty Diagnoses / Procedures Referred By Tavia t Referred To Contact Diagnoses Gallstone pancreatitis infected necrotic colection cystogastrostomy back and forth Procedures PRO ENDOSCOPIC US EXAM, ESOPH PRO ANESTH, COMBINED UPPER OR LOWER ENDOSCOPY UPPER EUS- ENDOSCOPIC ULTRASOUND Referral ID Status Reason Start Date Expiration Date Visits Re quested Visits Authorized [id number] 1 1 Encounter Details Date Type Department Care Team (Late st Contact Info) Description 04/22/2021 1:45 PM EDT Ancillary Procedure [place] [phone] Social History Tobacco Use Types Packs/Day Years [...] as of this encounter Plan of Treatment Pending Results Name Type Priority Associated Diagnoses Date /Time XR ERCP Imaging Storage Only Routine 07/2020 1:41 PM EDT documented as of this encounter Visit Diagnoses Not on filedocumented in this encounter Care Teams Operations Dispatcher Relationship Specialty Start Date End Date Peña Turner DO [address] [place] [address] PCP - General 05/13/10 07/21/21 documented as of this encounter
--- OUTSIDE RECORDS SUMMARY | 2024-06-12 14:14 | XMS_ITS | Encounter Summary ---
Author Organization [facility] [place] [address] Care Team Providers Care Director Of Rehabilitative Services Name Role Phone Javed Gordon MD Primary Care Provider [phone] Reason for Referral * Diagnostic Test (Routine) - Closed Specialty Diagnoses / Procedures Referred By Contac t Referred To Contact Radiology Diagnoses Necrotizing pancreatitis Procedures CT Abdomen w Contrast CT Abdomen & Pelvis w Contrast Manav Hale MD [facility] [place] [address] [facility] [place] [address] Referral ID Status Reason Start Date Expiration Date V isits Requested Visits Authorized [id number] Closed Specialty Service Requested 07/22/2021 01/19/2023 1 1 Reason for Visit * Diagnostic Test (Routine) - Closed Specialty Diagnoses / Procedures Referred By Contac t Referred To Contact Radiology Diagnoses Necrotizing pancreatitis Procedures CT Abdomen w Contrast CT Abdomen & Pelvis w Contrast Manav Hale MD [facility] [place] [address] [facility] [place] [address] Referral ID Status Reason Start Date Expiration Date V isits Requested Visits Authorized [id number] Closed Specialty Service Requested 07/22/2021 01/19/2023 1 1 Encounter Details Date Type Department Care Team (Latest Contact Info) Description 09/11/2021 3:52 PM EDT - 09/11/2021 11:59 PM EDT Hospital Encounter CT Scan at [facility] [place] [address] Manav Hale MD [facility] [place] [address] Necrotizing pancreatitis Discharge Disposition: Home Social History Tobacco Use [...] on file documented as of this encounter Medications at Time of Discharge Medication Sig Dispensed Refills Start Date End Date spironolactone (Aldactone) 25 mg Tablet Take 1 tablet by mouth daily. 08/29/2021 metFORMIN XR (Glucophage XR) 500 mg Tablet Sustained Release 24 hr Take 3 tablets by mouth daily. 270 tablet 3 06/24/2020 ergocalciferoL, vitamin D2, (vitamin D) 50,000 unit Capsule Take 1 capsule by mouth once a week. 13 capsule 4 06/24/2020 lisinopril (PRINIVIL;ZESTRIL) 20 mg Tablet Take 20 mg by mouth daily. documented as of this encounter Plan of Treatment Not on file documented as of this encounter Procedures Procedure Name Priority Date/Time Associated Diagnosis Comments CT ABDOMEN W CONTRAST Routine 09/11/2021 5:06 PM EDT Necrotizing pancreatitis documented in this encounter Results * CT Abdomen w [...] who have questions please contact the health career transition specialist that requested your imaging first. ? Narrative [...] which is dated February 10, 2021. FINDINGS: Biometry Teacher Images: Noncontributory. Lower chest: Visualized structures within [...] which is dated February 10, 2021. FINDINGS: Biometry Teacher Images: Noncontributory. Lower chest: Visualized structures within [...] patients who have questions please contactthe health career transition specialist that requested your imaging first. Manav Hale MD IMG CT ORDERABLES documented in this encounter Visit Diagnoses Diagnosis Necrotizing pancreatitis Acute pancreatitis documented in this encounter Administered Medications Inactive Administered Medications - up to 3 most recent administrations Medication Order MAR Action Action Date Dose Rate Site iohexoL (Omnipaque) (350 mg/mL) solution 0-200 mL 0-200 mL, Intravenous, ONCE PRN, 1 dose, Starting on Vicky 09/11/21 at 1706, Until Vicky 09/11/21 at 1706, Per Protocol, Warning Vesicant/Irritant Medication , Radiology Contrast, Routine Given 09/11/2021 5:06 PM EDT 100 mLs documented in this encounter Care Teams Director Of Rehabilitative Services Relationship Specialty Start Date End Date Javed Gordon MD PCP - General Family Medicine 07/22/21 04/27/22 documented as of this encounter
--- OUTSIDE RECORDS SUMMARY | 2024-06-12 14:14 | XMS_ITS | Encounter Summary ---
Author Organization [facility] Address [facility] [place] [address] Care Team Providers Care Associate Trainer Name Role Phone JohnnyPeña moreira Primary Care Provider [phone] Encounter Details Date Type Department Care Team (Late st Contact Info) Description 05/09/2021 11:46 AM EST Anesthesia Event [place] [phone] Neetu Mack MD [facility] [place] [address] Anesthesia Record Procedure Summary Procedure Name Responsible Anesthesiologist Anesthesia Start Time Anesthesia Stop Time EGD, TRANSORAL; WITH PLACEMENT OF ENDOSCOPIC STENT (WRVU 3.92) (Trunk) Neetu Mack MD 05/09/21 1146 05/09/21 1322 Events Date Time Event Comment 05/09/2021 1132 1146 AN Verify 1146 Start 1146 An Start Data 1157 An Induction 1158 An Intubation 1159 Anesthesia Ready 1320 Extubation/LMA Out 1322 an stop data 1322 Recovery or ICU Handoff Liyah ent care was transferred to the destination unit staff after review of the patient's medical history, current anesthetic/surgical status and plan, according to the Provider Handoff Checklist. 1322 Stop Meds Name Total IV Lidocaine 50 mg Propofol 150 mg Propofol INF 1,204.09 mg Succinylcholine 100 mg PHENYLephrine 320 mcg lactated ringers infusion 1,000 mL * Agents Name O2 Auxiliary Flowmeter 1 * Blood No blood administrations on file. Lines, Drains, and Airways Type Details Placement Removal Incision 03/27/21; 0954; abdo men; laparoscopic punctures (specify) (4 trocar sites) 03/27/21 0954 by Ute Anders, RN (RETIRED) Peripheral IV Line - Single Lumen 04/21/21; 1200; median cubital vein (antecubital fossa), left; [id number] catheter system; Anatomical Landmarks; 18 gauge; (placed by outside hospital); 11/25/21 (LDA Cleanup utility RA#[id number]); 1027 (LDA Cleanup utility RA#[id number]) 04/21/21 1200 by Anny Peguero RN 11/25/21 1027 by Sarthak Kimble (RETIRED) Peripheral IV Line - Single Lumen 05/09/21; 1045; median vein (underside of arm), left; [id number] catheter system; 22 gauge; 05/09/21; 1412 05/09/21 1045 by Pari Díaz RN 05/09/21 1412 by Pancho Vazquez RN ETT Mask Ventilation: No t Attempted (0); ETT Type: Cuffed, Oral; ETT Size: 7.5 mm; Tobar Blade: 2; Notes: Asleep, Pre-O2, RSI, Stylette; Attempts: 1; Laryngoscopy Grade: 2; ETT Placement Verified By: Auscultation, Capnometry, Visual; Secured at Teeth: 21 cm; Inserted by: Fred; Removal Date: 05/09/21; Removal Time: 1320 05/09/21 1158 by Robert Ibarra CRNA 05/09/21 1320 by Robert Ibarra CRNA documented in this [...] OR Notes * Anesthesia Postprocedure Evaluation - Neetu Mack MD - 05/09/2021 3:57 PM EST Department of Anesthesiology Post-procedure Note Patient: Pancho Babb Procedure Summary Date: 05/09/21 Room / Location: [facility] ENDO 2 / [facility] ENDOSCOPY Anesthesia Start: 1146 Anesthesia Stop: 1322 Procedure: EGD, TRANSORAL; WITH PLACEMENT OF ENDOSCOPIC STENT (WRVU 4.17) (N/A Trunk) Diagnosis: Pancreatic necrosis (2 weeks from 04/22/21 for EGD with Anesthesia [address] Hale for necrosectomy through [employer] cystgastrostomy) Surgeons: Manav Hale MD Responsible Provider: Neetu Mack MD Anesthesia Type: general ASA Status: 3 All Anesthesia Providers: Anesthesiologist: Neetu Mack MD HALL CLERK: Robert Ibarra CRNA Vitals Value Taken Time BP 106/61 05/09/21 1410 Temp Pulse Resp 18 05/09/21 1410 SpO2 98 % 05/09/21 1410 Pain Level 0 05/09/21 1410 Vitals shown include unvalidated device data. Patient Location: PACU/MERGED WITH [facility] Level of Consciousness: Conscious but Sleepy Pain Management: Satisfactory Analgesia PONV: None Cardiovascular Status: At Baseline Respiratory Status: At Baseline Postoperative Fluid Status: Intravascular EUvolemia Possible Anesthetic Complications: NONE apparent at time of evaluation Final Primary Anesthesia Type: General (The anesthetic type performed was the same as planned.) Comments: * Anesthesia Preprocedure Evaluation - Neetu Mack MD - 05/09/2021 11:30 AM EST Pre-Anesthesia Evaluation for: Pancho Babb a 56 y.o. male. Procedure(s): EGD, UPPER GI ENDOSCOPY UPPER EUS- ENDOSCOPIC ULTRASOUND Patient Active Problem List Diagnosis ??? Hypertensive [...] DIAGNOSTIC performed by Ruslan Taylor MD at [facility] ENDOSCOPY ??? PRO ENDOSCOPIC US EXAM, ESOPH N/A 03/10/2021 UPPER EUS- ENDOSCOPIC ULTRASOUND performed by Seb Maldonado MD at [facility] ENDOSCOPY ??? PRO ENDOSCOPIC US EXAM, ESOPH N/A 04/22/2021 UPPER EUS- ENDOSCOPIC ULTRASOUND performed by Manav Hale MD at [facility] ENDOSCOPY ??? PRO ERCP, SPHINCTEROTOMY 03/10/2021 ERCP W/SPHINCTEROTOMY/PAPILLOTOMY performed by Seb Maldonado MD at [facility] ENDOSCOPY ??? PRO ERCP,DIAGNOSTIC N/A 03/10/2021 ERCP performed by Seb Maldonado MD at [facility] ENDOSCOPY ??? PRO LAP, CHOLECYSTECTOMY/GRAPH N/A 03/27/2021 LAPAROSCOPIC CHOLECYSTECTOMY WITH CHOLANGIOGRAM (WRVU 11.47) performed by Sal Marshall MD at [facility] MAIN OR Social History Tobacco Use ??? Smoking status: Never Smoker ??? Smokeless tobacco: Never Used ??? Tobacco comment: never vape Substance Use Topics ??? Alcohol use: Not Currently Comment: occasionally Social History Substance and Sexual Activity Drug Use Not Currently No Known Allergies Medications: MAR and/or home medications have been reviewed. Physical Exam: Preprocedure Vitals Current as of 05/09/21 1130 BP: 99/72 Pulse: 98 Resp: 16 SpO2: 97 Temp: 37 ??C (98.6 ??F) Height: 177.8 cm (5' 10) (05/09/21) Weight: 85.7 kg (189 lb) (05/09/21) BMI: 27.12 IBW: 73 kg (160 lb 15 oz) Last edited 05/09/21 1028 by LD Airway Assessment: Mallampati: I TM distance: >3 FB Neck ROM: full Cardiovascular Assessment: Rhythm: regular Pulmonary Assessment: unlabored breathing Dental Assessment: Misc Assessment: IV access: Peripheral line Last Filed Perioperative Cognitive Screening None Anesthesia Plan: ASA 3 general, with a(n) intravenous induction 56 year old male with a PMH significant for DM2, gallstone pancreatitis, HTN, and adrenal nodule who presents for ERCP. No issues with anesthesia in the pasts Otherwise neg ROS Can walk 2 flights of stairs Non smoker NPO Plan: GETA/RSI Risks/benefits discussed, questions answered and patient wishes to proceed. Region - Other Informed Consent: Anesthetic plan and risks discussed with patient. Plan discussed with HALL CLERK. Anesthesia Screening documented in this encounter Plan [...] 10:45 AM EST 100 mL/hr 100 mL/hr lidocaine (pf) (Xylocaine) (20 mg/mL) 2% injection syringe Intravenous, PRN, Starting on Wed05/09/21 at 1157, Until Wed05/09/21 at 1322, Anesthesia Intra-op, Routine Given 05/09/2021 11:57 AM EST 50 mg PHENYLephrine in NS (PF) (CODY-SYNEPHRINE) 0.8 mg/10 mL (80 mcg/mL) multi-dose injection Syrg Intravenous, PRN, Starting on Wed05/09/21 at 1234, Until Wed05/09/21 at 1322, Anesthesia Intra-op, Routine Given 05/09/2021 12:43 PM EST 80 mcg Given 05/09/2021 12:34 PM EST 80 mcg Given 05/09/2021 12:14 PM EST 160 mcg propofoL (Diprivan) (10 mg/mL) infusion Intravenous, CONTINUOUS PRN, Starting on Wed05/09/21 at 1157, Until Wed05/09/21 at 1322, Anesthesia Intra-op, Routine Rate/Dose Change 05/09/2021 12:20 PM EST 200 mcg/kg/min 102.84 mL/hr New Bag 05/09/2021 11:57 AM EST 150 mcg/kg/min 77.13 mL /hr propofoL (Diprivan) 10 mg/mL bolus injection (Anesthesia) Intravenous, PRN, Starting on Wed05/09/21 at 1157, Until Wed05/09/21 at 1322, Anesthesia Intra-op Given 05/09/2021 11:57 AM EST 150 mg succinylcholine (Anectine;Quelicin) (20 mg/mL) injection Intravenous, PRN, Starting on Wed05/09/21 at 1157, Until Wed05/09/21 at 1322, Anesthesia Intra-op, Routine Given 05/09/2021 11:57 AM EST 100 mg documented in this encounter Care Teams Associate Trainer Relationship Specialty Start Date End Date Peña Turner DO [address] [place] [address] PCP - General 05/13/10 07/21/21 documented as of this encounter
--- OUTSIDE RECORDS SUMMARY | 2024-06-12 14:14 | XMS_ITS | Encounter Summary ---
Author Organization [facility] Address [facility] [place] [address] Care Team Providers Care Title Searcher Name Role Phone JohnnyPeña moreira Primary Care Provider Encounter Details Date Type Department Care Team (Late st Contact Info) Description 04/19/2021 Telephone [place] [phone] Nahid Shah MD [facility] [place] [address] Social History Tobacco Use Types Packs/Day Years [...] * Telephone Encounter - Geo Boucher - 04/21/2021 10:22 AM EDT 04/21/2021 10:22 AM Pancho Babb [id number] Update from team this morning. Pancho is currently afeb, WBC improved. On a clear liquid diet. Continues on Zosyn with bcx NGTD. I recommended patient be made NPO from ID for potential [id number] EUS + cystogastrostomy tomorrow afternoon. Geo Boucher MD PGY-5, Gastroenterology * Telephone Encounter - Nahid Shah MD - 04/19/2021 12:02 PM EDT Images from the original note were not included. 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 Reportedly he was well until 3-4 days agoat which time he developed the aforementioned symptoms. Notably, the patient was febrile, hypotensive but responded to fluids, and had a WBC 19 -> 11 on zosyn. He is also more stable now and is maintaing map >65 off of pressors. Imaging was done which showed a 19 cm walled off fluid filled cyst (phlegmon?) of the pancreas. We were called to discuss timing/feasibility for endoscopic management of this collection. Based on the timing of this insult, his known episode of gallstone pancreatitis in January, and imaging done here (MRCP) in january which showed likely the same collection, it seems that this collection may be mature enough to act on. This collection may be amenable to endoscopic drainage (cystgastrostomy etc) but should be reviewed further with an advanced endoscopist on Wednesday. In light of the patients hemodynamic instability prior to IV ABX, it makes sense for him to remain in the hospital forongoing monitoring and therapy until that time. We will keep him on our list for further review andpossible 'here and back' management early next week. This is not an official consult, as my recommendations are limited by my inability to interview andexamine the patient as well as personally review the medical record, imaging, and laboratory findings. Nahid Shah MD PGY-4, Gastroenterology documented in this encounter Plan of Treatment Not on file documented as of this encounter Visit Diagnoses Not on filedocumented in this encounter Care Teams Title Searcher Relationship Specialty Start Date End Date Peña Turner DO [address] [facility] [address] [place] [address] PCP - General 05/13/10 07/21/21 documented as of this encounter
--- OUTSIDE RECORDS SUMMARY | 2024-06-12 14:14 | XMS_ITS | Encounter Summary ---
Author Organization [facility] Address [facility] [place] [address] Care Team Providers Care Dairy Supplies Sales Representative Name Role Phone Javed Gordon MD Primary Care Provider [phone] Encounter Details Date Type Department Care Team (Latest Contact Info) Description 08/29/2021 9:00 AM EST TH Visit (TeleHealth) [place] [id number] Celso Raza MD [facility] [place] [place] [address] Controlled type 2 diabetes mellitus without complication, without long-term current use of insulin; Vitamin D deficiency; Dyslipidemia; Other fatigue Social History Tobacco Use Types Packs/Day Years [...] Sign Reading Time Taken Comments Blood Pressure 130/70 08/29/2021 9:04 AM EST Pulse - - Temperature - - Respiratory Rate 10 08/29/2021 9:04 AM EST Oxygen Saturation - - Inhaled Oxygen Concentration - - Weight 81.6 kg (180 lb) 08/29/2021 9:04 AM EST Height 177.8 cm (5' 10) 08/29/2021 9:04 AM EST Body Mass Index 25.83 08/29/2021 9:04 AM EST documented in this encounter Patient Instructions * Patient Instructions* Celso Raza MD - 08/29/2021 9:41 AM EST Plan: - Lab locally soon at PCP's office or [facility] lab as ordered below : Orders Placed This Encounter Procedures Hemoglobin A1c Vitamin D, 25-Hydroxy Comprehensive metabolic panel (non-fasting) Lipid Panel (Reflex Direct LDL) U Albumin/Cre Ratio TSH CBC (with Diff) - As he has lost wt after recent pancreatitis admissions in fall 2020, ok to cont metforminER 1,000mg daily (used to have A1c 6.8% in Jun 2015-> 6.0-6.3% -> 5.2% in 2018 -> 6% in 2020-> pending today). - He will cont diet control and exercise walking 20-30 mins daily. - To cont vitamin D vitamin-D 50,000 iu weekly (previous vit D was low at 19 => better at 56-58 stable; normal 30-100). So, pt should take vitD as prescribed and will recheck lab soon. - He may need to take pancreatic enzyme for a larger meals and will discuss with PCP directly - RTC 12 mo or earlier if needed. Celso Raza MD, PhD, FACE, FACP documented in this encounter Progress Notes * Celso Raza MD - 08/29/2021 9:00 AM EST Images from the original note were not included. ENDOCRINOLOGY FOLLOW-UP NOTE Patient Name: Aroldo Gunter : 1965 PCP: Dr. Turner Date : 08/29/2021 Reason for follow-up: DM/prediabetes with insulin resistance - started on metforminER since Jul 2018 with better control Recently had necrotizing pancreatitis in fall 2020 and had cholecystectomy (no etoh or tob) and offpancreatic enzymes for a few months (may need to resume it for larger meals per pt's symptoms) HTN improved after he lost wt from 233 to 180 lbs on spironolactone lowered dose 25 mg qd and lisinoprl 20 mg (D/C'd amlodipine) with stable bilateral adrenal nodules on CT scans 04/24/16 and 05/20/17 Patient verbally consents to this telehealth visit and understands that this visit may be billed, similar to a clinic office visit. I provided care to the patient today via Phone call. The total time associated with this visit, chart review, documentation, and coordination of care was 30 minutes. History of Presenting Illness: This is a 56 y.o. male patient who initially presented to Endocrine clinic on 02/25/16 for low potassium, HTN and and bilateral adrenal nodules, seen by Dr. Ramírez in 2015 and [facility]. It is still unclear if B/L adrenal nodules are truly hyperfunctioning or not since ARR was borderline at 29 (normal <30) and his K & BP were under controlled with lisinopril 20 mg, spirolactone 25 mg qd/bid. He used to take norvasc 5 mg qd in the past and lately D/C'd due to low BP after he lost 50-80 lbs with necrotizing pancreatitis in fall 2020. He had cholecystectomy and stopped drinking etoh for a year without tobacco use. He recently stopped using pancreatic enzymes for a few months but may need to resume it for larger meals per pt's symptoms with GI discomfort and indigestion. For his adrenal nodules, we would do AVS in future only if has severe HTN difficult to control withspironolactone and HTN med with mineralocorticoid receptor antagonist effect and TAMIKA inh which willhelp raise K levels. F/U adrenal CT after 1 year on 05/20/[address] showed no changes Recent CT scan abdomen showed no changes on adrenal nodules and ok to wait to do CT scan in 3-5 yrs. Regarding T2DM, he is on diet control and then added metforminER up to 1,500 mg/day with much better A1c (down from 6.8 to 5.9-6.2% range to 5.2% and then 6% lately) with wt down from 248 to 233 lbs at last visit last year and ow 180 lbs and lowest wt at 160 lbs after pancreatitis per pt's report. No worsening diabetes after pancreatitis attack and was told that he lost about 70% of pancreatic function. He actually reduced metforminER 1500 mg to 1000 mg/day lately with stable A1c 6% with his PCP. Also, vitamin D deficiency and started on vitD 50,000 iu weekly since Jul 2018 with better results,and will recheck lab today or soon locally for A1c, 25vitD and CMP, etc. Background history: Aroldo was diagnosed with HTN in 2013. He was started on HCTZ and lisinopril initially with 10 meQ KCl daily, then norvasc was added. His BP has been ranging 140's systolic during his office visits with his PCP. Per documentation sent over by PCP, he was noted to have hypokalemia in October 2015 as below, prompting d/c of HCTZ but persistent mild hypokalemia. Pt denies arrythmias, palpitations or muscle cramps. Pt also has a h/o DMT2 noted to have A1C 6.8 in Jun 2015 and now down to 6.2% by cutting back on fast food and no more soda. Ok to control by using diet and exercise. He occasionally checked FSBG. Denies constipation, tremors, palpitations, temperature intolerance. Denies dizziness, presyncope, headaches, vision changes, sweating spells. No recent weight changes, no fatigue or loss of energy. No muscle cramps. NO CAD history Diet rich in veggies. No laxative use At his initial visit on 02/2016, we had checked Gordon and renin levels, gordon- 22, renin- 2.6. ARR was8. Since lisinopril can lower aldosterone levels, we decided to hold lisinopril for 2 weeks and recheck ARR. This was done at OSH 03/17/2016 [place]gr[place]- 38 Renin- 1.3 ARR- 29 (This is < 30 which is the endo society cutt off for primary hyperaldosteronism) He has stopped his potassium due to some bloating sensation which he attributed to potassium. He denies headaches, muscle weakness or new cramps, worsening HTN. Currently on norvasc 5 mg, lisinopril 20 mg and we added spironolactone 25 mg We got a CT adrenal protocol on 04/24/16 which showed 1) An 11 mm nodule seen in the anterior limb of the right adrenal gland with 76% absolute washout, indicating this is a benign adenoma. 2) A 10 mm nodule seen in the posterior limb of the right adrenal gland. This measures -7 Hounsfield units on the precontrast scan, which is consistent with a benign adenoma. 3) A 16 mm nodule seen in the left adrenal gland with a 70% absolute washout, indicating this is a benign adenoma. ROS: as per HPI Past Medical History: DM type 2 - A1C 6.8, on diet control HTN Obesity (BMI 34-35) Intradural schwanomma s/p surgery Current Medications: ??? metFORMIN XR (Glucophage XR) 500 mg Tablet Sustained Release 24 hr ??? ergocalciferoL, vitamin D2, (vitamin D) 50,000 unit Capsule ??? lisinopril (PRINIVIL;ZESTRIL) 20 mg Tablet ??? 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 Dad- DMT2 at age 80 yrs No FH adrenal, thyroid, parathyroid problems, no h/o early HTN Allergies: No Known Allergies Vitals Patient Vitals for the past 24 hrs: Resp BP 08/29/21 0904 10 130/70 Physical Exam: BP 130/70 Resp 10 Ht 177.8 cm (5' 10) Wt 81.6 kg (180 lb) BMI 25.83 kg/m?? deferred Pertinent Laboratory Findings: Lab 11/19/15 12/05/15 01/01/16 11/05/1705/2018 Na 113 145 143 K 3.2 3.3 3.4 4.3 3.9 Cl 104 102 Bicarb 28 27 AG 10 BUN 21 Cr 1.15 0.96 1.02 1.05 EGFR >60 Ca 9.0 9.2 Glucose 111 (fasting but had coffee with cream and honey) A1c 6.8%(H) 6.2% (H) 6.3% (H) Results for AROLDO GUNTER ( ) as of 04/24/2016 Ref. Range 02/25/2016 17:10 TSH 0.27 - 4.20 mcIU/mL 1.83 Cortisol Latest Units: mcg/dL 13.1 ACTH Range: 6 - 50 pg/mL 21 Aldosterone Range: <=21 ng/dL 22 (H) Renin Activity Latest Units: ng/ml/hr 2.6 03/17/2016 Gordon- 38 Renin- 1.3 ARR- 29 CT adrenal protocol 04-24-2016 EXAMINATION: CT ABDOMEN WWO CONTRAST CLINICAL HISTORY: Adrenal protocol CT with and without contrast TECHNIQUE: Helical CT of the abdomen was performed prior to and following the intravenous administration of contrast. 110 cc of Omnipaque 350 was given. An adrenal protocol was performed. Precontrastfollowed by portal venous phase and 15 minute postcontrast delayed images were obtained. COMPARISON: None.?? FINDINGS: ?? Chest: No pulmonary nodule or consolidation. No pleural effusion. No enlarged lymph nodes in the imaged portion of the chest. Liver: Diffuse hepatic steatosis and mild hepatomegaly. No focal lesions. Bile ducts: Nondilated. Gallbladder: No calcified gallstones. Slight prominence of the gallbladder wall. Pancreas: Normal. Spleen: Normal. Adrenal: An 11 mm nodule seen in the anterior limb of the right adrenal gland. On the precontrast scans, the density measures 13 Hounsfield units. On the portal venous phase, the Hounsfield unit density is 62 HU. On the 15 minute postcontrast delayed images, the density is 25 HU. This is a 76% absolute washout, indicating this is a benign adenoma. A 16 mm nodule seen in the left adrenal gland. On the precontrast scans, the density measures 17 HU. On the portal venous phase, the Hounsfield unit density is 63 HU. On the 15 minute postcontrast delayed images, the density is 31 HU. This is a 70% absolute washout, indicating this is a benign adenoma. A 10 mm nodule seen in the posterior limb of the right adrenal gland. This measures -7 Hounsfield unitson the precontrast scan, which is consistent with a benign adenoma. Kidneys: A slightly exophytic hypodense lesion in the superior pole of the left kidney, measuring 1.5 cm in greatest diameter, represents a simple cyst. A subcentimeter hypodense lesion in the lower pole of the right kidney represents a simple cyst. A calyceal diverticulum is present in the upper pole of the right kidney. Bowel: No dilatation or wall thickening. Lymph nodes: An 11 mm lymph node seen posterior to the IVC at the level of the kidney. Peritoneum: No free air or free fluid. Osseous structures: Degenerative changes in the thoracolumbar spine. IMPRESSION 1. Bilateral adrenal adenomas as described above. 2. Bilateral simple renal cysts. 3. Diffuse hepatic steatosis and mild hepatomegaly. 4. Slight prominence of the gallbladder wall, which is of indeterminate etiology but cannot excludecholecystitis. Recommend clinical correlation. ?? I have personally reviewed the image(s) and the residents interpretation and agree with the findings, Aniket Medina at 04/24/2016 Repeat lab on 05/20/17 showed normal ACTH, plasma metanephrines, renin and aldosterone Follow-up adrenal CT after 1 year on 05/20/17 showed no changes EXAMINATION: ??CT ABDOMEN WWO CONTRAST Date: 05/20/17 CLINICAL HISTORY: ??follow up bilateral adrenal adenomas with last CT here on 04/24/16 TECHNIQUE: Helical CT of the abdomen was performed prior to and following the intravenous administration of contrast. ??120 cc of Omnipaque 350 was given. Oral contrast was administered. COMPARISON: ??04/24/2016 FINDINGS: Lower chest: Normal. Liver: As noted previously, mild diffuse hepatic steatosis with hepatomegaly, measuring 22.5 cm in cranial to caudaldimension. Bile ducts: Nondilated. Gallbladder: No calcified gallstones. Normal caliber wall. Pancreas: Normal attenuation without ductal dilatation. Spleen: Normal. Adrenal: The adrenal glands are stable. As noted previously, 2 subcentimeter RIGHT adrenal gland nodules are noted and a solitary subcentimeter LEFT adrenal gland nodule is noted. Previously, these were shown to be compatible with benign adrenal gland adenomas with a 95% confidence level, as per an adrenal gland protocol. They are stable. Kidneys: Normal. No renal collecting system obstruction bilaterally. A 5 mm cortical cyst is seen in the lower pole of the RIGHT kidney. Vasculature: No aneurysm. Lymph nodes: No enlarged lymph nodes. Bowel: Nondilated, no wall thickening. Peritoneum and mesentery: No ascites, free air, or loculated fluid collection. No mesenteric inflammation. Abdominal wall: Normal. Osseous structures: No suspicious lesions. ? Impression ? 1. ??Stable bilateral adrenal gland adenomas. These are benign, and do not need additional workup and/or follow-up. 2. ??Stable mild diffuse hepatic steatosis with hepatomegaly. Lab on 02/21/19 showed better vitamin D at 56 (was low at 19 in Jul), c-peptide insulin level of 5.8 (was 8.2) with normal A1c 5.2% (down from 6.0-6.8%) after taking metformin and vitamin D 50,000 iu weekly supplement. Other results were all ok. Ok to continue all current treatment and recheck lab asplanned next year. Results for AROLDO GUNTER ( ) Ref. Range 02/21/2019 13:05 Sodium Latest Ref Range: 135 - 145 mmol/L 142 Potassium Latest Ref Range: 3.5 - 5.0 mmol/L 4.1 Chloride Latest Ref Range: 98 - 107 mmol/L 107 CO2 Latest Ref Range: 22 - 31 mmol/L 24 Anion Gap Latest Ref Range: 5 - 15 mmol/L 11 BUN Latest Ref Range: 10 - 20 mg/dL 14 Creatinine Latest Ref Range: 0.80 - 1.50 mg/dL 0.90 Estimated GFR Latest Ref Range: >=60 mL/min/1.73 m?? 96 eGFR Latest Ref Range: >=60 mL/min/1.73 m?? 112 Calcium Latest Ref Range: 8.5 - 10.5 mg/dL 9.3 Glucose Lvl Latest Ref Range: 65 - 199 mg/dL 114 Hemoglobin A1C Latest Ref Range: 4.3 - 5.6 % 5.2 Est Avg Gluc Latest Units: mg/dL 103 Chol, Total Latest Units: mg/dL 160 HDL Latest Units: mg/dL 42 Chol/HDL Ratio Latest Units: ratio 3.8 Triglycerides Latest Units: mg/dL 80 LDL Cholesterol Latest Units: mg/dL 102 Lipid Interpretation Unknown See Note 25-OH Vit D Total Latest Ref Range: 30 - 100 ng/mL 56 C-Peptide Latest Ref Range: 0.8 - 5.2 ng/mL 5.8 (H) Addendum: Outside lab at [facility] on 09/04/21 A1c 5.7% excellent!, continue metforminER 1,000 mg/day TSH 1.25, good thyroid 25vitamin D 58.1 (normal 30-100), ok to stay on vitD 50,000 iu weekly TC/LDL 140/85, good cholesterol TG/HDL 41/47, excellent lipids CBC No anemia (Hb 12, Hct 39%) but slightly low platelets at 96, still ok CMP All normal (Na 144, K 3.5n Cr 0.9, Ca 8.5, normal liver tests) Urine microalbumin/Cr - normal (no evidence of diabetic kidney) & good news Assessment: This is a 56 y.o. male patient with h/o HTN and hypokalemia in the past associated with elevated aldosterone and low renin (borderline high ARR at 29, normal <30 after he was off lisinopril for 2 weeks) and CT scan showed bilateral small adrenal nodules of 10-16 mm. He also has some features of metabolic syndrome given T2DM/preDM, HTN, BMI 34-35 in the past on metforminER 1,000-1500 mg/day andhealtheir diet plus more active physically. His HTN with h/o low K is likely due to endocrine causeI.e. primary hyper-aldosteronism (elevated aldosterone 38 with renin 1.3, high ARR 29) due to bilateral adrenal nodular hyperplasia and r/o Cushings syndrome with normal ACTH 21 with cortisol 13 in 2015. Pt had a period of hypokalemia which has since resolved with discontinuation of HCTZ. His Klevels were entirely normal at 3.7-4.1 with good BP control when he went back on lisinopril 20 mg qs, spironolactone 25 mg qd with a low dose amlodipine 5 mg qd. He does not have resistant HTN- currently on less than maximal dosing of lisinopril 20 mg and Norvasc 5 mg with BP systolic in the 140's. We recalculated his ARR after holding lisinopril for 2 weeks: 03/17/2016 Gordon- 38 Renin- 1.3 ARR- 29 This is < 30 which is the endo society cutt off for primary hyperaldosteronism We got a CT adrenal protocol on 04/24/16 which showed 1) An 11 mm nodule seen in the anterior limb of the right adrenal gland with 76% absolute washout, indicating this is a benign adenoma. 2) A 10 mm nodule seen in the posterior limb of the right adrenal gland. This measures -7 Hounsfield units on the precontrast scan, which is consistent with a benign adenoma. 3) A 16 mm nodule seen in the left adrenal gland with a 70% absolute washout, indicating this is a benign adenoma. Given the discovery of B/L nodules we would need to complete a functionality work up including plasma metanephrines today. We will reassess the ARR and determine need for adrenal venous sampling per endocrine society protocol. For his adrenal nodules, we would do AVS in future only if has severe HTN difficult to control withspironolactone and HTN med with mineralocorticoid receptor antagonist effect and TAMIKA inh which willhelp raise K levels. F/U adrenal CT after 1 year on 05/20/17 showed no changes Recent CT scan abdomen showed no changes on adrenal nodules and ok to wait to do CT scan in 3-5 yrs. Regarding T2DM, he is on diet control and then added metforminER up to 1,500 mg/day with much better A1c (down from 6.8 to 5.9-6.2% range to 5.2% and then 6% lately) with wt down from 248 to 233 lbs at last visit last year and ow 180 lbs and lowest wt at 160 lbs after pancreatitis per pt's report. No worsening diabetes after pancreatitis attack and was told that he lost about 70% of pancreatic function. He actually reduced metforminER 1500 mg to 1000 mg/day lately with stable A1c 6% with his PCP. Also, vitamin D deficiency and started on vitD 50,000 iu weekly since Jul 2018 with better results,and will recheck lab today or soon locally for A1c, 25vitD and CMP, etc. Plan: - Lab locally soon at PCP's office or [facility] lab as ordered below : Orders Placed This Encounter Procedures ??? Hemoglobin A1c ??? Vitamin D, 25-Hydroxy ??? Comprehensive metabolic panel (non-fasting) ??? Lipid Panel (Reflex Direct LDL) ??? U Albumin/Cre Ratio ??? TSH ??? CBC (with Diff) - As he has lost wt after recent pancreatitis admissions in fall 2020, ok to cont metforminER 1,000mg daily (used to have A1c 6.8% in Jun 2015-> 6.0-6.3% -> 5.2% in 2018 -> 6% in 2020-> 5.7% now 09/04/21). - He will cont diet control and exercise walking 20-30 mins daily. - To cont vitamin D vitamin-D 50,000 iu weekly (previous vit D was low at 19 => better at 56-58 stable; normal 30-100). So, pt should take vitD as prescribed and will recheck lab soon. - He may need to take pancreatic enzyme for a larger meals and will discuss with PCP directly - RTC 12 mo or earlier if needed. Celso Raza MD, PhD, FACE, FACP CC: Javed Gordon MD documented in this encounter Plan of Treatment Not on file documented as of this encounter Visit Diagnoses Diagnosis Controlled type 2 diabetes mellitus without complication, without long-term current use of insulin Vitamin D deficiency Unspecified vitamin D deficiency Dyslipidemia Other and unspecified hyperlipidemia Other fatigue documented in this encounter Care Teams Dairy Supplies Sales Representative Relationship Specialty Start Date End Date Javed Gordon MD PCP - General Family Medicine 07/22/21 04/27/22 documented as of this encounter
--- OUTSIDE RECORDS SUMMARY | 2024-06-12 14:14 | XMS_ITS | Encounter Summary ---
Author Organization [facility] Address [facility] [place] [address] Care Team Providers Care Real Time Operator Name Role Phone Johnny Peña WALDRON Primary Care Provider [phone] Encounter Details Date Type Department Care Team (Late st Contact Info) Description 06/11/2021 Telephone [place] [phone] Marixa September Social History Tobacco Use Types Packs/Day Years [...] encounter Miscellaneous Notes * Telephone Encounter - MarixaSeptember - 06/11/2021 10:28 AM EST Pancho Babb [id number] Diagnosis/Indication: EGD in 6 weeks from 06/10/[address] Hale (60min) for eval of cystgastromy, Solus stent removal, possible necrosectomy 1. Have you ever had a/an Upper Endoscopy before? Yes: Date 06/10/21 If yes, did you have any problems [...] pain medications, including suboxone or methodone? Yes 11. Do you have a preference regarding the gender of your provider? Yes: Female 12. Is there any other information you would like to us to note for the provider and nursing team who will perform your case? No 13. Say to patient: You must have a responsible alliance party who will drive you to your procedure, stay [place] for the entire duration of your procedure, and drive you home from your procedure? *Please Verify the height and weight, and adjust if height and/or weight have changed* Estimated body mass index is 25.11 kg/m?? as calculated from the following: Height as of 06/10/21: 177.8 cm (5' 10). Weight as of 06/10/21: 79.4 kg (175 lb). Age:56 y.o. documented in this encounter Plan of Treatment Not on file documented as of this encounter Visit Diagnoses Not on filedocumented in this encounter Care Teams Real Time Operator Relationship Specialty Start Date End Date Peña Turner DO [address] [place] [address] PCP - General 05/13/10 07/21/21 documented as of this encounter
--- OUTSIDE RECORDS SUMMARY | 2024-06-12 14:14 | XMS_ITS | Encounter Summary ---
Author Organization [facility] Address [facility] [place] [address] Care Team Providers Care Orthopedics Teacher Name Role Phone Peña Turner DO Primary Care Provider [phone] Encounter Details Date Type Department Care Team (Late st Contact Info) Description 06/10/2021 1:00 PM EST - 06/10/2021 2:45 PM EST [place] [address] Manav Hale MD [facility] [place] [address] EGD, UPPER GI ENDOSCOPY (VU 2.09) Social History Tobacco Use Types Packs/Day Years [...] Sign Reading Time Taken Comments Blood Pressure 133/84 06/10/2021 12:02 PM EST Pulse 88 06/10/2021 12:02 PM EST Temperature 36.4 ??C (97.6 ??F) 06/10/2021 12:[address] Respiratory Rate 16 06/10/2021 12:02 PM EST Oxygen Saturation 98% 06/10/2021 12:02 PM EST Inhaled Oxygen Concentration - - Weight 79.4 kg (175 lb) 06/10/2021 12:02 PM EST Height 177.8 cm (5' 10) 06/10/2021 12:02 PM EST Body Mass Index 25.11 06/10/2021 12:02 PM EST documented in this encounter Medications at Time [...] Notes * Ryan Del Valle MD - 06/10/2021 12:30 PM EST Patient Name: Pancho Babb Patient Age: 56 y.o. Birthdate: 1965 Admit date: 06/10/2021 Attending Physician: Manav Hale MD HISTORY OF PRESENT ILLNESS Pancho Babb is a 56 y.o. 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 PROBLEM LIST Patient Active Problem List Diagnosis [...] to Encounter Medication Sig Dispense Refill ??? amLODIPine (Norvasc) 5 mg Tablet Take [...] Take 20 mg by mouth daily. ??? morphine CR (Ms Contin) 15 mg Tablet Sustained Release TAKE 1 TABLET BY MOUTH EVERY 12 HOURS ??? ergocalciferoL, vitamin D2, (vitamin D) 50,000 unit Capsule Take 1 capsule by mouth once a week. (Patient taking differently: Take 50,000 Units by mouth once a week. Fridays) 13 capsule 4 PHYSICAL EXAM: Blood pressure 133/84, pulse 88, temperature 36.4 ??C (97.6 ??F), resp. rate 16, height 177.8 cm (5' 10), weight 79.4 kg (175 lb), SpO2 98 %. GEN: Alert, cooperative. Pleasant. In NAD MP 2 ASA 3 HEENT: No oropharyngeal lesions. Neck [...] Flexible Transoral Endoscopic Stent Placement W/Wire & Dilation(63090) 06/10/2021 12:41 PM EST Acute necrosis of pancreas Upper GI Endoscopy, Diagnostic (24281) 06/10/2021 12:41 PM EST Acute necrosis of pancreas UPPER GI ENDOSCOPY Routine 06/10/2021 12 :16 PM EST documented in this encounter Results * UPPER GI ENDOSCOPY (06/10/2021 12:16 PM EST) UPPER GI ENDOSCOPY [facility] Endoscopy Procedure Date: 06/10/2021 12:16 PM ? Patient Name: Pancho Babb ? Date of : 1965 ? Age: 56 ? Order #: [id number] ? Instrument Name: [id number] ? Procedure: ? Upper GI endoscopy Indications: ? WOPN for debridement Providers: ? Manav Hale MD, Neej J. ? Fadia Del Valle, VITOR, Mary Lou ? Adrian Sutton MD: ?Peña Turner, DO Medicines: ? General [...] ? The esophagus was normal. ? The previously placed AXIOS and Solus stents (4 in ? total) were visualized along the lesser curve. The ? Solus stents were removed with a snare and the AXIOS ? removed with a rat-toothed forceps. We then entered ? the cavity and dilated using an 18-19-20 mm TTS ? balloon. We then entered the cavity with debris ? within the cavity. We used multiple snares - ? Captivator, large Hex, Exacto - as well as the 15 mm ? occlusion balloon and the Trapezoid basket to ? debride. We also used a biopsy cap. We debrided for ? approximately 60 minutes without complication and ? there was still extensive debris present. We then ? placed #5 10 Fr x 4 cm Solus stents across the cavity. ? The duodenum was normal. ? Moderate Sedation: ? Not applicable - See Anesthesia documentation Impression: ?- Further debridement of WOPN Recommendation: ?- Return in six weeks for further ? debridement ? Attending Participation: ? I was present and participated during the entire ? procedure, including non-blanchard portions. ? ___ Manav Hale MD 06/10/2021 2:59:13 PM This report has been signed electronically. Number of Addenda: 0 Note Initiated On: 06/10/2021 12:16 PM PROVATION 06/10/2021 12:1 6 PM EST Peña Turner DO GENERAL SURGICAL ORD ERABLES PROVATION documented in this encounter Visit Diagnoses Diagnosis Acute necrosis of pancreas Acute pancreatitis documented in this encounter Active and Recently Administered Medications Times are shown in EST. Continuous Medication Order 06/08/2021 06/09/2021 06/10/2021 lactated ringers infusion (CANCELED) 100 mL/hr, Intravenous, CONTINUOUS, Starting on Wed06/10/21 at 1230, Until Wed06/10/21 at 1548, Endoscopy (Day of Procedure) 1241 (New Bag - Prov ider: Robert Ibarra CRNA)1454 (Anesthesia Volume Adjustment - Provider: Robert Ibarra CRNA) documented in this encounter Care Teams Orthopedics Teacher Relationship Specialty Start Date End Date Peña Turner DO [address] [place] [address] [address] [facility] [address] [place] [address] PCP - General 05/13/10 07/21/21 documented as of this encounter
--- OUTSIDE RECORDS SUMMARY | 2024-06-12 14:14 | XMS_ITS | Encounter Summary ---
Author Organization [facility] [place] [address] Care Team Providers Care Dictating Transcribing Machine Servicer Name Role Phone Javed Gordon MD Primary Care Provider [phone] Encounter Details Date Type Department Care Team (Late st Contact Info) Description 02/20/2022 Telephone [place] [address] Karla Tobar Social History Tobacco Use Types Packs/Day Years [...] encounter Miscellaneous Notes * Telephone Encounter - Karla Tobar - 02/20/2022 2:45 PM EDT I called pt to r/s his appt on 04/01 as it was bumped. He was hoping for an appt before March as he feels his condition is pretty serious. I was not sure If he needed any testing prior because it says with CT prior but I do not see anything ordered documented in this encounter Plan of Treatment Not on file documented as of this encounter Visit Diagnoses Not on filedocumented in this encounter Care Teams Dictating Transcribing Machine Servicer Relationship Specialty Start Date End Date Javed Gordon MD PCP - General Family Medicine 07/22/21 04/27/22 documented as of this encounter
--- OUTSIDE RECORDS SUMMARY | 2024-06-12 14:14 | XMS_ITS | Encounter Summary ---
Author Organization Formerly [facility] Address [place] [address] Care Team Providers Care Water [employer] Boat Mate Name Role Phone Johnny Peña WALDRON Primary Care Provider Reason for Visit * Auth/Cert Specialty Diagnoses / Procedures Referred By Contac t Referred To Contact Diagnoses Biliary acute pancreatitis without necrosis or infection GALLSTONE PANCREATITIS Procedures PRO LAP, CHOLECYSTECTOMY/GRAPH LAPAROSCOPIC CHOLECYSTECTOMY WITH CHOLANGIOGRAM (WRVU 11.47) Referral ID Status Reason Start Date Expiration Date Visits Re quested Visits Authorized [id number] 1 1 Encounter Details Date Type Department Care Team (Late st Contact Info) Description 03/27/2021 9:35 AM EDT - 03/27/2021 12:20 PM EDT [place] [id number] Riddhi Morton MD [facility] [place] [address] LAPAROSCOPIC CHOLECYSTECTOMY WITH CHOLANGIOGRAM (WRVU 11.47) Social History Tobacco Use Types Packs/Day Years [...] Sign Reading Time Taken Comments Blood Pressure 129/74 03/27/2021 12:19 PM EDT Pulse 69 03/27/2021 6:13 AM EDT Temperature 36.2 ??C (97.2 ??F) 03/27/2021 1 2:19 PM EDT Respiratory Rate 13 03/27/2021 12:1 9 PM EDT Oxygen Saturation 97% 03/27/2021 12: 19 PM EDT Inhaled Oxygen Concentration - - Weight 91.5 kg (201 lb 11.2 oz) 03/27/2021 6:13 AM EDT Height 177.8 cm (5' 10) 03/27/2021 6:13 AM EDT Body Mass Index 28.94 03/27/2021 6:13 AM EDT documented in this encounter Discharge Instructions * Discharge Instructions* Citlalli Fan RN - 03/27/2021 12:49 PM EDT POST ANESTHESIA INSTRUCTIONS Go home, rest, use caution on stairs. Change positions slowly. Do not smoke if you are alone. Diet light to regular as tolerated today. If nausea occurs start with clear liquids and progress slowly. No driving, operating machinery, alcoholic beverages and no important decisions for 24 hours. Monitor IV site for signs and symptoms of infection: increasing redness, swelling, foul drainage, if occurs contact M.D. Patients who have had endotrachial tubes (this tube, used by anesthesia department, is passed down your throat after you are asleep, to ensure safe air passage during your operation). A sore throat is normal due to the tube. Cold liquids or soothing lozenges will help ease the discomfort. The generalized muscle aches are due to the medication given to you just before the tube is inserted. As the medication wears off, you may develop muscle soreness, which usually goes away in 12-24 hours. Next dose of acetaminophen (tylenol) can be taken at 6:45 pm or later. Next dose of ibuprofen can be taken at 5:45 pm or later. * Patient Instructions* Vazquez Castro MD - 03/27/2021 6:57 AM EDT Instructions following Laparoscopic Cholecystectomy with Intraoperative Cholangiogram Wound Care: ?? You have a liquid dressing, there is nothing to remove. - Please keep the area clean and dry. After 24 hours, you may shower and gently pat the area dry. ?? Some bruising around your incisions is normal. ?? No swimming or soaking for two weeks. ?? Your stitches will dissolve and do not need to be removed. Urinary retention: If you are unable to urinate 6-8 hours after your surgery, please call [phone] before 5 PM weekdays and [phone] after 5 PM and weekends to discuss further managment. Activity: No heavy lifting more than 10 pounds for the next 2 weeks, then you may gradually lift heavier objects as tolerated by discomfort. Otherwise activity as tolerated by your comfort level. Pain Management: Use Tylenol, ibuprofen and ice to treat your pain. ?? You may take 1 gram of Tylenol (Max 4 grams per day), and 600 mg of ibuprofen with meals and before bed time. ?? You may use an ice pack to the area for 30 minutes at a time as needed (strongly suggested). Useice for 30 minutes on, then take off for 30 minutes, and repeat. Bowel Medications: If you are not having at least 1 bowel movement every day, begin taking 1 capful of Miralax a day (17 g). If you are not having consistent bowel movements 2 days after starting miralax, increase to 1capful in the morning and 1 capful at night. If after another 48 hours you still are not having consistent bowel movements, call the clinic number below and consider increasing to 3 capfuls a day (morning, afternoon and night). Diet: After your procedure, there are no dietary restrictions. Driving restrictions: No driving if you are taking prescription pain medication or if you think your normal reaction timeand attentiveness has been slowed by your surgery. Call Doctor for: Please call if you notice worsening redness or drainage from incision(s) lasting longer than 5 daysafter your surgery, any foul-smelling drainage from the incision, pain not controlled by pain medications, persistent nausea and vomiting, or for any fevers greater than 101.3 F. The number for questions is [phone] before 5 PM weekdays and [phone] after 5 PM and weekends. Follow-up: Follow-up appointment will be scheduled with Dr. Morton's team in 4 weeks. Appointment will be mailed to you. Please call [phone] (clinic number for appointments) to confirm date and time of your appointment if you do not receive your apointment in 3 weeks. documented in this encounter Medications at Time [...] 05/23/2018 08/29/2021 documented as of this encounter Progress Notes * Filipe Bule RN - 03/27/2021 2:57 PM EDT Patient alert and oriented, vital signs stable. Lap sites are CDI. Patient was ready for discharge around 1pm but mother needed help getting electric chair into the vehicle. PIV removed and intact. Reviewed discharge instructions; patient verbalized understanding. Copy of instruction sheet with contact numbers for questions/concerns with the procedure performed. Pain assessment documented. Patient escorted out of department via wheelchair with SDP staff around 14:30. * Vazquez Castro MD - 03/27/2021 12:39 PM EDT ID/MECHANISM OF INJURY: Pancho Babb is a 56 y.o. male S/p laparoscopic cholecystectomy with IOC for gallstone pancreatitis OR CASE INFORMATION: 03/27/2021 Procedure(s): LAPAROSCOPIC CHOLECYSTECTOMY WITH CHOLANGIOGRAM (VU 11.47) FOLLOW-UP NEEDED: Does pt need to f-u with surgeon or AMBULATORY TECHNOLOGIST (please indicate reason if attending provider): AMBULATORY TECHNOLOGIST How soon should TACS f/u be? 4 weeks Follow-up with other services? No Advise of Service and needs. Imaging orders entered: No Radiology Safety questions done for MRI/CT? N/A New or current ostomy? Ostomy nurse shared visit N/A Mobility concerns: Fully ambulatory Wound vac (requires 60min clinic visit) N/A On vent? If Yes - Needs to have someone from facility and supplies. N/A On Dialysis: N/A (SCHEDULE?) INCIDENTAL FINDINGS Incidental Findings (yes/no): N/A OPIOID CONSENT/NARCOTIC AGREEMENTS Current Month Narcotic Consent? N/A No Isolation D/c to: Home If Rehab - Rehab Name: PCP Name: DO Vazquez Vigil MD 03/27/2021 documented in this encounter H&P Notes * Vazquez Castro MD - 03/27/2021 6:56 AM EDT H&P 24hr interval update/Pre-operative note ID: Pancho Babb is a 56 y.o. male with a hx of gallstone pancreatitis, s/p ERCP with sphincterotomy. Presents for interval laparoscopic cholecystectomy with IOC History reviewed. No pertinent past medical history. Past Surgical History: Procedure Laterality Date ??? PRO COLONOSCOPY, DIAGNOSTIC N/A 01/14/2016 COLONOSCOPY, DIAGNOSTIC performed by Ruslan Taylor MD at [facility] ??? PRO ENDOSCOPIC US EXAM, ESOPH N/A 03/10/2021 UPPER EUS- ENDOSCOPIC ULTRASOUND performed by Seb Maldonado MD at [facility] ??? PRO ERCP, SPHINCTEROTOMY 03/10/2021 ERCP W/SPHINCTEROTOMY/PAPILLOTOMY performed by Seb Maldonado MD at [facility] ??? PRO ERCP,DIAGNOSTIC N/A 03/10/2021 ERCP performed by Seb Maldonado MD at [facility] No current facility-administered medications on file prior [...] Tablet Take 20 mg by mouth daily. S: Pancho Babb endorses no recent change in health. Denies any fever, chills, cough, congestion, change in bowel habits. Prior to arrival today, Pancho Babb was in a normal state of health. O: Physical Exam: Gen: AAOx3, resting comfortably CVS: regular rate Pulm: Unlabored breathing on room air, no audible wheezes Abd: soft, non tender, non distended, no scars Ext: wwp A/P: Pancho Babb is a 56 y.o. male who presents for planned laparoscopic cholecystectomy with IOC.Will proceed with planned operation. Vazquez Castro MD 03/27/2021 General Surgery [id number] documented in this encounter Miscellaneous Notes * Op Note - Riddhi Morton MD - 03/27/2021 11:59 AM EDT [facility] [place] Patient Name: Pancho Babb : [id number] MR#: [id number] Case Date: 03/27/2021 Surgeon: Surgeon(s) and Role: * Riddhi Morton MD - Primary * Vazquez Castro MD - Resident Preoperative diagnosis: GALLSTONE PANCREATITIS Postoperative diagnosis: GALLSTONE PANCREATITIS Procedure(s) (LRB): LAPAROSCOPIC CHOLECYSTECTOMY WITH CHOLANGIOGRAM (VU 11.47) (N/A) Findings: 1. Gallbladder with evidence of chronic inflammation in the infundibulum, cystic duct and cystic artery identified and critical view of safety obtained 2. Cholangiogram performed with good filling of the intrahepatic and common bile ducts, no filling defects and contrast emptied into the duodenum 3. Additional length dissected out on the cystic duct but it remained dilated distally so endoGIA stapler used for division of the cystic duct 4. Gallbladder removed from abdomen through the umbilical port in a Eco bag and sent for pathology Anesthesia: General Estimated Blood Loss: 50 mL Specimens removed during surgery: Order Name Source Comment Collection Info Order Time SPECIMEN TO PATHOLOGY 11571 GALLSTONE PANCREATITIS gallbladder. resection No 03/27/2021 11:17 AM Number of tissue samples (in container) 1 Time specimen removed from patient: 11:16 AM Biospecimen to store? No Drains: none Surgical Closure: Primary Closure - skin incision is completely closed without any wires, robson, drains or other devices Disposition: awakened from anesthesia, extubated and taken to the recovery room in a stable condition, having suffered no apparent untoward event. Condition: doing well without problems (Please see the Surgical Encounter Summary for any Implant and Specimen details pertinent to this patient.) HPI/Surgical Indications: 56 yo male now recovered from recent episode of gallstone pancreatitis. He underwent successful ERCP with removal of retained stone from the CBD. We discussed the risks, benefits and alternatives to laparoscopic cholecystectomy with IOC. Consent obtained and will plan to move forward with surgery on 03/27/21. Procedure Description: The patient was identified in preoperative holding and was taken to the operating room and general anesthesia was induced. The abdomen was prepped and draped in the standard sterile fashion. Timeout was performed. Preoperative antibiotics were given. Incision was made above the umbilicus and the fascia was grasped between two Ike clamps. The fascia was opened with the knife and the underlying peritoneum was grasped and opened with Metzenbaum scissors. 0 vicryl suture was placed on either side of the fascial opening. A 12mm Murphy trocar was placed into the abdomen under direct visualization. The abdomen was insufflated to 15 mmHg pressure with CO2. A 10mm 30 degree scope was brought intothe abdomen. All remaining trocars were inserted under direct visualization. The next trocar was a 5 mm trocar placed in the midline just below the xiphoid. Two 5 mm trocars were placed in the RUQ. Agrasping forceps was placed on the fundus of the gallbladder and the gallbladder was retracted cephalad. Using appropriate grasping instruments, the peritoneum overlying the triangle of Calot was incised. There was bleeding from them liver edge at the area where the gallbladder peritoneum was [place] medially. This was controlled with cautery. There was an artery overlying the cystic duct infundibulum junction that was densely adherent. This was taken by clipping and dividing to free the cystic duct for dissection. The infundibulum was entered and there was spillage of bile. The subxiphoidport site was replaced with a 12mm port. An Eco bag was brought into the abdomen. Stones were collected in an Eco bag. The cystic duct/gallbladder junction was identified and dissected circumferentially. A critical view of safety was achieved. The cystic artery was identified medially and was dissected circumferentially. A tie was placed proximally on the cystic duct/gallbladder junction and an intraoperative cholangiogram performed using fluoroscopy, which showed good flow of dye into the duodenum. There were no intra- or extrahepatic bile duct filling defects. The biliary anatomy appeared normal. The cystic duct was long and dilated. The cystic duct was dissected inferiorly but this was then limited by chronic inflammatory changes in the area. The cystic duct was divided with a 45mm endoGIA stapler. The end of the gallbladder was stapled and divided to control the hole. This end of the gallbladder was placed in the Eco bag. Two clips were placed proximally and one distally on the cystic artery, and the artery was divided. Remaining soft tissue attachments to the gallbladder to theliver bed were then divided using electrocautery. The 10mm 30 degree scope was moved to the subxiphoid port site and an Eco bag was inserted through the umbilical port site. The gallbladder was placed in the Eco bag and extracted through the umbilical port site. The gallbladder bed was inspected and excellent hemostasis was obtained. Irrigation was used and suctioned out and was clear. The trocars were removed under direct visualization. The umbilical trocar was removed and the fascial defect closed with the 0 vicryl suture after evacuating the pneumoperitoneum. Hemostasis was achieved at allport sites.The skin was closed with a running 4-0 monocryl subcuticular stitch and the skin dressedwith Dermabond. All counts were correct at the end of the case. The patient was extubated in the ORand returned to the recovery area in stable condition. Attestation: Case Date: 03/27/2021 I was present and I participated during the entire procedure (does not need to include opening and closing). RIDDHI MORTON MD 03/27/2021 documented in this encounter Plan of Treatment Not on file documented as of this encounter Procedures Procedure Name Priority Date/Time Associated Diagnosis Comments POCT GLUCOSE Routine 03/27/2021 1:20 PM EDT XR FLUORO NO RAD <1HR - OR USE Routine 03/27/2021 11:53 AM EDT SPECIMEN TO PATHOLOGY Routine 03/27/2021 11:17 AM EDT SURGICAL PATHOLOGY REPORT Routine 03/27/2021 11:16 AM EDT Lap, Cholecystectomy/Gr aph (08364) Yes 03/27/2021 9:17 AM EDT GALLSTONE PANCREATITIS POCT GLUCOSE Routine 03/27/2021 6:18 AM EDT documented in this encounter Results * POCT Glucose (03/27/2021 1:20 PM EDT) Glucose, POC 157 65 - 199 mg/dL [facility] Comment: Supplemental ranges: <140 mg/dL before meals <180 mg/dL all other times of the day Blood 03/27/2021 1:20 PM EDT 03/27/2021 1:20 PM EDT Riddhi Morton MD POINT OF CARE TEST O RDERABLES [facility] [place] [address] * XR Fluoro No Rad <1Hr - OR Use (03/27/2021 11:53 AM EDT) Narrative Dicom, Auditing User - 03/27/2021 11:54 AM EDT This exam is auto-finalizing. No interpretation was done. Riddhi Morton MD IMG FLUORO ORDERABLE S * Specimen to Pathology (03/27/2021 11:17 AM EDT) AP Specimen 03/27/2021 11:1 7 AM EDT 03/27/2021 11:17 AM EDT Narrative [facility] - 03/27/2021 11:17 AM EDT Specimen requisition ordered. ??Separate Pathology report to follow Riddhi Morton MD PATHOLOGY/CYTOLOGY O RDERABLES [facility] [place] [address] * Surgical Pathology Report (03/27/2021 11:16 AM EDT) Final Diagnosis [id number] ? Location: [facility]; [facility]; A The signing pathologist has (i) examined the relevant preparation(s) for the specimen(s) and (ii) rendered or confirmed the diagnosis(es). . ?Surgical Pathology DIAGNOSIS A - Gallbladder, cholecystectomy: - Chronic cholecystitis and cholelithiasis. Electronically signed by: ?Boby Preciado MD Verified: ??04/01/2021 14:59 ??Pathologist Performed at: ??-[facility] Dept. [place]ology, [place], [place] SPECIMEN(S) SUBMITTED A - Gallbladder, resection (1) CLINICAL INFORMATION Gallstone pancreatitis SPECIMEN PROCESSING A - Labeled/Fixative: Gallbladder, fresh. Quantity/Size: ??Single, 7.1 x 3.5 x 2.8 cm. Specimen Description: Gallbladder, received intact. Serosa: [place], hyperemic Hepatic margin: Cauterized Lumen contents: Red, viscous, bile. Gallstones: Present: Multiple, green gallstones ranging from, 0.3-1.2 cm Mucosa: Hyperemic with scattered yellow stippling in diffuse granularity Wall: Averaging 0.4 cm thick. Duct: Specimen appears transected across the neck; 1.3 cm, occluded. Ink Designation: The hepatic margin is inked black Sections/Processi ng: Ekg Technician sections in 4 cassettes as follows: ?A1: ??En face staple line margin at neck ?A2-A4: ??Ekg Technician mucosa ??con 04/01/2021 2:59 PM EDT [facility] GALLBLADDER STRUCTURE / Unknown 03/27/2021 11:16 AM EDT 03/27/2021 11:16 AM EDT Riddhi Morton MD PATHOLOGY/CYTOLOGY O QUYNH Performing Organization Address City/[facility]/ZIP Co de Phone Number [facility] [place] [address] * POCT Glucose (03/27/2021 6:18 AM EDT) Glucose, POC 114 65 - 199 mg/dL [facility] Comment: Supplemental ranges: <140 mg/dL before meals <180 mg/dL all other times of the day Blood 03/27/2021 6:18 AM EDT 03/27/2021 6:18 AM EDT Riddhi Morton MD POINT OF CARE TEST O QUYNH [facility] [place] [address] documented in this encounter Visit Diagnoses Not on filedocumented in this encounter Administered Medications Inactive Administered Medications - up to 3 most recent administrations Medication Order MAR Action Action Date Dose Rate Site acetaminophen (Tylenol) tablet 975 mg 975 mg, Oral, EVERY 6 HOURS SCHEDULED, First dose on Vicky 03/27/21 at 1300, Until Discontinued, Maximum dose of acetaminophen is 4000 mg from all sources in 24 hours. When ordered for pain, acetaminophen should be given even when other ordered pain medications are indicated. , Routine Given 03/27/2021 12:46 PM EDT 975 mg BUpivacaine (pf) (Marcaine) (5 mg/mL) 0.5% injection ONCE PRN, Starting on Vicky 03/27/21 at 1204, Until Vicky 03/27/21 at 1701, Intra-Operative (Intra-Procedure), Routine Given 03/27/2021 12:04 PM EDT 30 mLs 19- Surgical Site ibuprofen (Advil) tablet 600 mg 600 mg, Oral, EVERY 6 HOURS PRN, Starting on Vicky 03/27/21 at 1238, Until Vicky 03/27/21 at 1701, Pain, Administer orally with milk or food to minimize GI irritation. Maximum dose of 3,200 mg from all sources in 24 hours, Routine iohexoL (Omnipaque) (300 mg/mL) injection solution ONCE PRN, Starting on Vicky 03/27/21 at 1117, Until Vicky 03/27/21 at 1701, Intra-Operative (Intra-Procedure), Routine Given 03/27/2021 11:17 AM EDT 15 mLs 19- Surgical Site lactated ringers infusion 1,000 mL, at 100 mL/hr, Intravenous, CONTINUOUS, Starting on Vicky 03/27/21 at 0630, Until Vicky 03/27/21 at 1454, Day of Surgery (Day of Procedure) New Bag 03/27/2021 11:29 AM EDT New Bag 03/27/2021 9:02 AM EDT New Bag 03/27/2021 7:02 AM EDT 1,000 mLs 100 mL/hr oxyCODONE (Roxicodone) tablet 5 mg 5 mg, Oral, EVERY 4 HOURS PRN, Starting on Vicky 03/27/21 at 1237, Until Vicky 03/27/21 at 1701, Pain, Routine documented in this encounter Active and Recently Administered Medications Times are shown in EDT. Scheduled Medication Order 03/25/2021 03/26/2021 03/27/2021 acetaminophen (Tylenol) tablet 975 mg 975 mg, Oral, EVERY 6 HOURS SCHEDULED, First dose on Vicky 03/27/21 at 1300, Until Discontinued, Maximum dose of acetaminophen is 4000 mg from all sources in 24 hours. When ordered for pain, acetaminophen should be given even when other ordered pain medications are indicated. , Routine 1246 (Given - Provid er: Citlalli Fan RN) Continuous Medication Order 03/25/2021 03/26/2021 03/27/2021 lactated ringers infusion (CANCELED) 1,000 mL, at 100 mL/hr, Intravenous, CONTINUOUS, Starting on Vicky 03/27/21 at 0630, Until Vicky 03/27/21 at 1454, Day of Surgery (Day of Procedure) 0702 (New Bag - Prov ider: Shweta Iqbal RN)0901 (Paused - Provider: Mike Nettles CRNA - Comment: Switch to gravity)0902 (New Bag - Provider: Mike Nettles CRNA)1129 (New Bag - Provider: Mike Nettles CRNA)1157 (Anesthesia Volume Adjustment - Provider: Mike Nettles CRNA) PRN Medication Order 03/25/2021 03/26/2021 03/27/2021 BUpivacaine (pf) (Marcaine) (5 mg/mL) 0.5% injection (CANCELED) ONCE PRN, Starting on Vicky 03/27/21 at 1204, Until Vicky 03/27/21 at 1701, Intra-Operative (Intra-Procedure), Routine 1204 (Given - Provid er: Riddhi Morton MD) ibuprofen (Advil) tablet 600 mg 600 mg, Oral, EVERY 6 HOURS PRN, Starting on Vicky 03/27/21 at 1238, Until Vicky 03/27/21 at 1701, Pain, Administer orally with milk or food to minimize GI irritation. Maximum dose of 3,200 mg from all sources in 24 hours, Routine iohexoL (Omnipaque) (300 mg/mL) injection solution (CANCELED) ONCE PRN, Starting on Vicky 03/27/21 at 1117, Until Vicky 03/27/21 at 1701, Intra-Operative (Intra-Procedure), Routine 1117 (Given - Provid er: Riddhi Morton MD - Comment: cholangiogram.) oxyCODONE (Roxicodone) tablet 5 mg 5 mg, Oral, EVERY 4 HOURS PRN, Starting on Vicky 03/27/21 at 1237, Until Vicky 03/27/21 at 1701, Pain, Routine documented in this encounter Care Teams Water Taxi Boat Mate Relationship Specialty Start Date End Date Peña Turner DO [address] [place] [address] PCP - General 05/13/10 07/21/21 documented as of this encounter
--- OUTSIDE RECORDS SUMMARY | 2024-06-12 14:14 | XMS_ITS | Encounter Summary ---
Author Organization [facility] Address [facility] [place] [address] Care Team Providers Care Processor Inspector Name Role Phone Peña Turner DO Primary Care Provider Encounter Details Date Type Department Care Team (Latest Contact Info) Description 06/10/2021 11:39 AM EST - 06/10/2021 4:23 PM EST Hospital En[place] [address] Manav Hale MD [facility] [place] [address] Discharge Disposition: Home Social History Tobacco Use [...] Sign Reading Time Taken Comments Blood Pressure 99/68 06/10/2021 3:40 PM EST Pulse 88 06/10/2021 12:02 PM EST Temperature 36.4 ??C (97.6 ??F) 06/10/2021 12:[address] Respiratory Rate 16 06/10/2021 12:02 PM EST Oxygen Saturation 97% 06/10/2021 3:40 PM EST Inhaled Oxygen Concentration - - [...] Flexible Transoral Endoscopic Stent Placement W/Wire & Dilation(08787) 06/10/2021 12:41 PM EST Acute necrosis of pancreas Upper GI Endoscopy, Diagnostic (34889) 06/10/2021 12:41 PM EST Acute necrosis of pancreas UPPER GI ENDOSCOPY Routine 06/10/2021 12 :16 PM EST documented in this encounter Results * UPPER GI ENDOSCOPY (06/10/2021 12:16 PM EST) Pathologist [facility] UPPER GI ENDOSCOPY [facility] Endoscopy Procedure Date: 06/10/2021 12:16 PM ? Patient Name: Pancho Babb ? Date of : 1965 ? Age: 56 ? Order #: [id number] ? Instrument Name: [id number] ? Procedure: ? Upper GI endoscopy Indications: ? WOPN for debridement Providers: ? Manav Hale MD, Neej J. ? Fadia Del Valle RN, Mary Lou ? Adrian Sutton MD: ?Peña [...] Diagnoses Not on filedocumented in this encounter Active and Recently Administered Medications Times are shown in EST. Continuous Medication Order 06/08/2021 06/09/2021 06/10/2021 lactated ringers infusion (CANCELED) 100 mL/hr, Intravenous, CONTINUOUS, Starting on Wed06/10/21 at 1230, Until Wed06/10/21 at 1548, Endoscopy (Day of Procedure) 1241 (New Bag - Prov ider: Robert Ibarra CRNA)1454 (Anesthesia Volume Adjustment - Provider: Robert Ibarra CRNA) documented in this encounter Care Teams Processor Inspector Relationship Specialty Start Date End Date Peña Turner DO [address] [place] [address] [address] [place] [address] PCP - General 05/13/10 07/21/21 documented as of this encounter
--- OUTSIDE RECORDS SUMMARY | 2024-06-12 14:14 | XMS_ITS | Encounter Summary ---
[place] [address] Care Team Providers Care Car Seat Maker Name Role Phone Javed Gordon MD Primary Care Provider [phone]- [phone] Encounter Details Date Type Department Care Team (Late st Contact Info) Description 09/08/2021 Telephone [place] [id number] Renée Stokes, RN Social History Tobacco Use [...] Telephone Encounter - Renée Stokes, RN - 09/08/2021 3:01 PM EDT Incoming voice message from Pancho wondering if he can get a refill of Creon and also wanting to know what the next steps will be for him since his last procedure. Forwarded for review documented in this encounter Plan of Treatment Not on file documented as of this encounter Visit Diagnoses Not on filedocumented in this encounter Care Teams Car Seat Maker Relationship Specialty Start Date End Date Javed Gordon MD PCP - General Family Medicine 07/22/21 04/27/22 documented as of this encounter
--- OUTSIDE RECORDS SUMMARY | 2024-06-12 14:14 | XMS_ITS | Encounter Summary ---
Author Organization [facility] Address [facility] [place] [address] Care Team Providers Care Roller Bearing Inspector Name Role Phone JohnnyPeña moreira Primary Care Provider Reason for Visit * Auth/Cert Specialty Diagnoses / Procedures Referred By Tavia t Referred To Contact Diagnoses Gallstone pancreatitis infected necrotic colection cystogastrostomy back and forth Procedures PRO ENDOSCOPIC US EXAM, ESOPH PRO ANESTH, COMBINED UPPER OR LOWER ENDOSCOPY UPPER EUS- ENDOSCOPIC ULTRASOUND Referral ID Status Reason Start Date Expiration Date Visits Re quested Visits Authorized [id number] 1 1 Encounter Details Date Type Department Care Team (Late st Contact Info) Description 04/22/2021 1:21 PM EDT Anesthesia [place] [address] Kymberly Skelton MD [facility] [place] [address] Anesthesia Record Procedure Summary Procedure Name Responsible Anesthesiologist Anesthesia Start Time Anesthesia Stop Time UPPER EUS- ENDOSCOPIC ULTRASOUND (WRVU 3.47) (Trunk) Kymberly Skelton MD 04/22/21 1321 04/22/21 1437 Events Date Time Event Comment 04/22/2021 1311 1321 AN Verify 1321 Start 1321 An Start Data 1327 An Induction 1331 An Intubation 1335 Anesthesia Ready 1429 Extubation/LMA Out 1437 an stop data 1437 Recovery or ICU Handoff Liyah ent care was transferred to the destination unit staff after review of the patient's medical history, current anesthetic/surgical status and plan, according to the Provider Handoff Checklist. 1437 Stop Meds Name Total IV Lidocaine 100 mg Propofol 350 mg PHENYLephrine 960 mcg Ondansetron 4 mg Succinylcholine 100 mg Dexmedetomidine 20 mcg Esmolol 50 mg lactated ringers infusion 500 mL * Agents Name O2 Air N2O Sevoflurane (et) * Blood No blood administrations on file. Lines, Drains, and Airways Type Details Placement Removal Incision 03/27/21; 0954; abdo men; laparoscopic punctures (specify) (4 trocar sites) 03/27/21 0954 by Ute Anders, RN (RETIRED) Peripheral IV Line - Single Lumen 04/21/21; 1200; median cubital vein (antecubital fossa), left; fmje-cyq-saucap catheter system; Anatomical Landmarks; 18 gauge; (placed by outside hospital); 11/25/21 (LDA Cleanup utility RA#[id number]); 1027 (LDA Cleanup utility RA#[id number]) 04/21/21 1200 by Anny Peguero RN 11/25/21 1027 by Sarthak Kimble ETT Mask Ventilation: No t Attempted (0); ETT Type: Cuffed, Oral; ETT Size: 7.5 mm; Mac Blade: 4; Notes: Asleep, Pre-O2, Cricoid Pressure, Stylette; Attempts: 1; Laryngoscopy Grade: 1; ETT Placement Verified By: Auscultation, Capnometry, Visual; Secured at Teeth: 23 cm; Inserted by: Katheryn Santos CRNA; Removal Date: 04/22/21; Removal Time: 1429 04/22/21 1336 by Katheryn Santos CRNA 04/22/21 1429 by Katheryn Santos CRNA documented in this encounter Social History [...] OR Notes * Anesthesia Postprocedure Evaluation - Kymberly Skelton MD - 04/22/2021 5:06 PM EDT Department of Anesthesiology Post-procedure Note Patient: Pancho Babb Procedure Summary Date: 04/22/21 Room / Location: [facility] ENDO 2 / [facility] Anesthesia Start: 1321 Anesthesia Stop: 1437 Procedure: UPPER EUS- ENDOSCOPIC ULTRASOUND (N/A Trunk) Diagnosis: (infected necrotic colection) (cystogastrostomy) (back and forth) Surgeons: Manav Hale MD Responsible Provider: Kymberly Skelton MD Anesthesia Type: general ASA Status: 3 All Anesthesia Providers: Anesthesiologist: Kymberly Skelton MD FILTER PRESS PUMPER: Katheryn Santos CRNA Vitals Value Taken Time BP 131/76 04/22/21 1540 Temp Pulse Resp SpO2 96 % 04/22/21 1547 Pain Level 5 04/22/21 1600 Vitals shown include unvalidated device data. Patient Location: PACU/[facility] Level of Consciousness: Conscious but Sleepy Pain Management: Satisfactory Analgesia PONV: None Cardiovascular Status: At Baseline and Hemodynamically Stable Respiratory Status: Stable Respiratory Status and Supplemental O2 (NC or FM) Postoperative Fluid Status: Intravascular EUvolemia Possible Anesthetic Complications: NONE apparent at time of evaluation Final Primary Anesthesia Type: General (The anesthetic type performed was the same as planned.) Comments: * Anesthesia Preprocedure Evaluation - Kymberly Skelton MD - 04/22/2021 1:09 PM EDT Pre-Anesthesia Evaluation for: Pancho Babb a 56 y.o. male. Procedure(s): UPPER EUS- ENDOSCOPIC ULTRASOUND Patient Active Problem [...] DIAGNOSTIC performed by Ruslan Taylor MD at [facility] END[facility] ??? PRO ENDOSCOPIC US EXAM, ESOPH N/A 03/10/2021 UPPER EUS- ENDOSCOPIC ULTRASOUND performed by Seb Maldonado MD at [facility] ??? PRO ERCP, SPHINCTEROTOMY 03/10/2021 ERCP W/SPHINCTEROTOMY/PAPILLOTOMY performed by Seb Maldonado MD at [facility] END[facility] ??? PRO ERCP,DIAGNOSTIC N/A 03/10/2021 ERCP performed by Seb Maldonado MD at [facility] ??? PRO LAP, CHOLECYSTECTOMY/GRAPH N/A 03/27/2021 LAPAROSCOPIC CHOLECYSTECTOMY WITH CHOLANGIOGRAM (WRVU 11.47) performed by Sal Marshall MD at [facility] MA[facility] OR Social History Tobacco Use ??? Smoking status: Never Smoker ??? Smokeless tobacco: Never Used ??? Tobacco comment: never vape Substance Use Topics ??? Alcohol use: Not Currently Comment: occasionally Social History Substance and Sexual Activity Drug Use Not Currently ??? Types: Marijuana No Known Allergies Medications: MAR and/or home medications have been reviewed. Physical Exam: Preprocedure Vitals Current as of 04/22/21 1309 BP: 157/80 Pulse: 90 Resp: SpO2: 100 Temp: 36.3 ??C (97.4 ??F) Height: 177.8 cm (5' 10) (04/22/21) Weight: 91.2 kg (201 lb) (04/22/21) BMI: 28.84 IBW: 73 kg (160 lb 15 oz) Last edited 04/22/21 1128 by KN Airway Assessment: Mallampati: III TM distance: >3 FB Neck ROM: full Cardiovascular Assessment: Rhythm: regular Rate: normal Pulmonary Assessment: unlabored breathing Dental Assessment: Misc Assessment: Last Filed Perioperative Cognitive Screening None Anesthesia Plan: ASA 3 general, with a(n) intravenous induction 56 y.o. male s/f upper EUS for pancreatic cyst PMHx: acute necrotizing pancreatitis, HTN (lisinopril, spironolactone, amlodipine), pre DM (metformin) Allergies: No Known Allergies Vitals: Patient Vitals in the past 8 hrs: 04/22/21 1128, BP:157/80, Temp:36.3 ??C (97.4 ??F), Temp src:Temporal, Pulse:90, SpO2:100 %, Height:177.8 cm (5' 10), Weight:91.2 kg (201 lb) Social Hx: no EtOH, no Tobacco, no Marijuana ROS negative for GERD, CP, SOB, dizziness. Notes and labs reviewed. Patient personally seen and examined. We discussed benefits, indications, and risks of anesthesia (including but not limited to sore throat, dental injury, nerve injury, prolonged intubation, cardiac, pulmonary, or neurologic event). Plan general anesthesia, standard ASA monitors, adequate PIV access. RSI Kymberly Skelton MD Region - Other Informed Consent: Anesthetic plan and risks discussed with patient. Plan discussed with FILTER PRESS PUMPER. Anesthesia Screening documented in this encounter Plan of Treatment Not on file documented as of this encounter Visit Diagnoses Not on filedocumented in this encounter Administered Medications Inactive Administered Medications - up to 3 most recent administrations Medication Order MAR Action Action Date Dose Rate Site dexmedetomidine (Precedex) (4 mcg/mL) bolus injection (Anesthsia) Intravenous, PRN, Starting on Wed04/22/21 at 1327, Until Wed04/22/21 at 1437, Anesthesia Intra-op, Routine Given 04/22/2021 1:27 PM EDT 20 mcg esmoloL (Brevibloc) (10 mg/mL) injection Intravenous, PRN, Starting on Wed04/22/21 at 1330, Until Wed04/22/21 at 1437, Anesthesia Intra-op, Routine Given 04/22/2021 1:30 PM EDT 50 mg lactated ringers infusion 100 mL/hr, Intravenous, CONTINUOUS, Starting on Wed04/22/21 at 1145, Until Wed04/22/21 at 1814, Endoscopy (Day of Procedure) Restarted 04/22/2021 1:21 PM EDT New Bag 04/22/2021 11:37 AM EDT 100 mL/hr 100 mL/hr lidocaine (pf) (Xylocaine) (20 mg/mL) 2% injection syringe Intravenous, PRN, Starting on Wed04/22/21 at 1327, Until Wed04/22/21 at 1437, Anesthesia Intra-op, Routine Given 04/22/2021 1:27 PM EDT 100 mg ondansetron (pf) (Zofran) (2 mg/mL) injection Intravenous, PRN, Starting on Wed04/22/21 at 1357, Until Wed04/22/21 at 1437, Anesthesia Intra-op, Routine Given 04/22/2021 1:57 PM EDT 4 mg PHENYLephrine in NS (PF) (CODY-SYNEPHRINE) 0.8 mg/10 mL (80 mcg/mL) multi-dose injection Syrg Intravenous, PRN, Starting on Wed04/22/21 at 1335, Until Wed04/22/21 at 1437, Anesthesia Intra-op, Routine Given 04/22/2021 1:59 PM EDT 160 mcg Given 04/22/2021 1:54 PM EDT 160 mcg Given 04/22/2021 1:50 PM EDT 160 mcg propofoL (Diprivan) 10 mg/mL bolus injection (Anesthesia) Intravenous, PRN, Starting on Wed04/22/21 at 1328, Until Wed04/22/21 at 1437, Anesthesia Intra-op Given 04/22/2021 1:31 PM EDT 50 mg Given 04/22/2021 1:30 PM EDT 100 mg Given 04/22/2021 1:29 PM EDT 100 mg succinylcholine (Anectine;Quelicin) (20 mg/mL) injection Intravenous, PRN, Starting on Wed04/22/21 at 1329, Until Wed04/22/21 at 1437, Anesthesia Intra-op, Routine Given 04/22/2021 1:29 PM EDT 100 mg documented in this encounter Care Teams Roller Bearing Inspector Relationship Specialty Start Date End Date Peña Turner DO [address] [place] [address] [address] [facility] [address] [place] [address] PCP - General 05/13/10 07/21/21 documented as of this encounter
--- OUTSIDE RECORDS SUMMARY | 2024-06-12 14:14 | XMS_ITS | Encounter Summary ---
Author Organization [facility] [address] Care Team Providers Care Tire Rebuilder Name Role Phone Javed Gordon MD Primary Care Provider [phone] Encounter Details Date Type Department Care Team (Latest Contact Info) Description 04/27/2022 Travel Social History Tobacco Use Types Packs/Day Years [...] on filedocumented in this encounter Care Teams Tire Rebuilder Relationship Specialty Start Date End Date Javed Gordon MD PCP - General Family Medicine 07/22/21 04/27/22 documented as of this encounter
--- OUTSIDE RECORDS SUMMARY | 2024-06-12 14:14 | XMS_ITS | Encounter Summary ---
Author Organization [facility] Address [facility] [place] [address] Care Team Providers Care Monitor Car Operator Name Role Phone Peña Turner DO Primary Care Provider Encounter Details Date Type Department Care Team (Late st Contact Info) Description 04/28/2021 Telephone General Surgery at [facility] [place] [phone] JadelisaNat Social History Tobacco Use Types Packs/Day Years [...] encounter Miscellaneous Notes * Telephone Encounter - Nat Guthrie Jerry - 04/28/2021 8:19 AM EST Received call from patient advising he needed to cancel his four week post-op appointment today. Patient advised he is presently admitted at [facility] for pancreatitis. Patient will call to reschedule follow-up once he knows when he is being discharged. ID/MECHANISM OF INJURY: Pancho Babb is a 56 y.o. male S/p laparoscopic cholecystectomy with IOC for gallstone pancreatitis ? OR CASE INFORMATION: 03/27/2021 Procedure(s): LAPAROSCOPIC CHOLECYSTECTOMY WITH CHOLANGIOGRAM (WRVU 11.47) ? FOLLOW-UP NEEDED: Does pt need to f-u with surgeon or LIGHT TECHNICIAN (please indicate reason if attending provider): LIGHT TECHNICIAN How soon should TACS f/u be? 4 weeks Follow-up with other services? No Advise of Service and needs. ?? Imaging orders entered: No Radiology Safety questions done for MRI/CT? N/A New or current ostomy? Ostomy nurse shared visit N/A Mobility concerns: Fully ambulatory Wound vac (requires 60min clinic visit)?? N/A On vent??? If Yes - Needs to have someone from facility and supplies. N/A On Dialysis: N/A (SCHEDULE?) ? INCIDENTAL FINDINGS Incidental Findings (yes/no):??N/A ? OPIOID CONSENT/NARCOTIC AGREEMENTS Current Month Narcotic Consent? N/A ?? No Isolation ? D/c to: Home If Rehab - Rehab Name: ?? PCP Name: Peña Turner, DO ? Vazquez Castro MD 03/27/2021 ?? documented in this encounter Plan of Treatment Not on file documented as of this encounter Visit Diagnoses Not on filedocumented in this encounter Care Teams Monitor Car Operator Relationship Specialty Start Date End Date Peña Turner DO [address] [place] [address] PCP - General 05/13/10 07/21/21 documented as of this encounter
--- OUTSIDE RECORDS SUMMARY | 2024-06-12 14:14 | XMS_ITS | Encounter Summary ---
Author Organization [facility] Address [facility] [place] [address] Care Team Providers Care Ethernet Network Architect Name Role Phone Javed Gordon MD Primary Care Provider [phone] Encounter Details Date Type Department Care Team (Late st Contact Info) Description 07/22/2021 Orders Only [place] [address] Manav Hale MD [facility] [place] [address] Social History Tobacco Use Types Packs/Day Years [...] on filedocumented in this encounter Care Teams Ethernet Network Architect Relationship Specialty Start Date End Date Javed Gordon MD PCP - General Family Medicine 07/22/21 04/27/22 documented as of this encounter
--- OUTSIDE RECORDS SUMMARY | 2024-06-12 14:14 | XMS_ITS | Encounter Summary ---
Author Organization [facility] [place] [address] Care Team Providers Care Nickel Plant Operator Name Role Phone Johnny, Peña WALDRON Primary Care Provider [phone] Encounter Details Date Type Department Care Team (Late st Contact Info) Description 04/18/2021 7:25 PM EDT Ancillary Procedure Radiology Library at [facility] [place] [address] Patrick Monroe MD Social History Tobacco Use Types Packs/Day Years [...] Procedure Name Priority Date/Time Associated Diagnosis Comments FILM LIBRARY STORAGE ONLY CT CHEST ABDOMEN PELVIS Routine 04/18/2021 7:20 PM EDT documented in this encounter Results * Film Library- Storage Only CT Chest Abdomen Pelvis (04/18/2021 7:20 PM EDT) Narrative ARA - 04/18/2021 7:20 PM EDT This exam is auto-finalizing. It's purpose is for storage only. Patrick Monroe MD IMG FILM LIBRARY ORD ERABLES BHARGAV oSuza documented in this encounter Visit Diagnoses Not on filedocumented in this encounter Care Teams Nickel Plant Operator Relationship Specialty Start Date End Date Peña Turner DO [address] [place] [address] PCP - General 05/13/10 07/21/21 documented as of this encounter
--- OUTSIDE RECORDS SUMMARY | 2024-06-12 14:15 | XMS_ITS | Encounter Summary ---
Author Organization [facility] Address [facility] [place] [address] Care Team Providers Care Imaging System Administrator Name Role Phone Peña Turner DO Primary Care Provider [phone] Reason for Visit * Reason Comments Follow-up * Surgical (Routine) - Closed Specialty Diagnoses / Procedures Referred By Tavia herbert Referred To Contact General Surgery Diagnoses Gallstone pancreatitis Imtiaz Whatley MD [facility] [place] [address] [facility] [address] [place] [address] Referral ID Status Reason Start Date Expiration Date V isits Requested Visits Authorized [id number] Closed Consult, Test & Treat 02/16/2021 02/16/2022 1 1 Encounter Details Date Type Department Care Team (Late st Contact Info) Description 03/17/2021 11:30 AM EDT Office [place] [address] Riddhi Morton MD [facility] [place] [address] Gallstone pancreatitis Social History Tobacco Use Types Packs/Day Years Used Date Smoking Tobacco: Never Smokeless Tobacco: Never Comments:never vape Alcohol Use Standard Drinks/Week Comments Yes 0 (1 standard drink = 0.6 oz pur e alcohol) occasionally Sex and Gender Information Value Date Recorded Sex Assigned at Not on file Gender Identity Not on file Sexual Orientation Not on file documented as of this encounter Last Filed Vital Signs Vital Sign Reading Time Taken Comments Blood Pressure 125/86 03/17/2021 11:08 AM EDT Pulse 74 03/17/2021 11:08 AM EDT Temperature - - Respiratory Rate 17 03/17/2021 11:0 8 AM EDT Oxygen Saturation 99% 03/17/2021 11: 08 AM EDT Inhaled Oxygen Concentration - - Weight 95.1 kg (209 lb 11.2 oz) 021 11:08 AM EDT Height - - Body Mass Index 30.09 03/10/2021 12:10 PM EDT documented in this encounter Progress Notes * Riddhi Morton MD - 03/17/2021 11:30 AM EDT [facility] NOTE: NEW PATIENT Patient Name: Aroldo Gunter Patient Age: 56 y.o. MR#: [id number] : [id number] Reason for Visit/CC: Gallstone pancreatitis HISTORY OF PRESENT ILLNESS: Aroldo Gunter is a 56 y.o. male presents with admission in January 2021 for gallstone pancreatitis. His hospital course was complicated by respiratory failure. He did recover well as an inpatient and was able to be discharged to home on 02/16/21. He underwent ERCP last week for retained stone in the CBD. He reports feeling much better since the ERCP. He has no abdominal pain and no f/c. He has had no diarrhea and no n/v. He has not chest pain or shortness of breath. PAST MEDICAL AND SURGICAL HISTORY: No past medical history on file. Past Surgical History: Procedure Laterality Date ??? PRO COLONOSCOPY, DIAGNOSTIC N/A 01/14/2016 COLONOSCOPY, DIAGNOSTIC performed by Ruslan Taylor MD at [facility] ENDOSCOPY ??? PRO ENDOSCOPIC US EXAM, ESOPH N/A 03/10/2021 UPPER EUS- ENDOSCOPIC ULTRASOUND performed by Seb Maldonado MD at [facility] ENDOSCOPY ??? PRO ERCP, SPHINCTEROTOMY 03/10/2021 ERCP W/SPHINCTEROTOMY/PAPILLOTOMY performed by Seb Maldonado MD at [facility] ENDOSCOPY ??? PRO ERCP,DIAGNOSTIC N/A 03/10/2021 ERCP performed by Seb Maldonado MD at [facility] ENDOSCOPY ALLERGIES: No Known Allergies MEDICATIONS: Current Outpatient Medications on File Prior to Visit Medication Sig Dispense Refill ??? amLODIPine (Norvasc) [...] mouth once a week. 13 capsule 4 ??? spironolactone (ALDACTONE) 25 mg Tablet TAKE ONE TABLET BY MOUTH TWICE A DAY 180 tablet 3 ??? lisinopril (PRINIVIL;ZESTRIL) 20 mg Tablet Take 20 mg by mouth daily. ??? aspirin 81 mg Tablet, Delayed Release (E.C.) Take 81 mg by mouth daily. No current facility-administered medications on file prior to visit. FAMILY HISTORY: No bleeding or anesthesia complications SOCIAL HISTORY: Social History Tobacco Use ??? Smoking status: Never Smoker ??? Smokeless tobacco: Never Used ??? Tobacco comment: never vape Vaping Use ??? Vaping Use: Never used Substance Use Topics ??? Alcohol use: Yes Comment: occasionally ??? Drug use: No REVIEW OF SYSTEMS: complete 10 system ROS performed with pertinent findings noted above otherwise all negative. PHYSICAL EXAMINATION VITALS: Patient Vitals for the past 24 hrs: Pulse Resp BP SpO2 03/17/21 1108 74 17 125/86 99 % , Body mass index is 30.09 kg/m??. General: NAD, A&Ox3 HEENT: normocephalic, anicteric sclerae CVS: RRR Pulm: CTAB Abd: soft, non-tender, non-distended: Skin: warm, dry Ext: well perfused, no edema Neuro: Grossly intact, nonfocal LABORATORY: Results for AROLDO GUNTER ( ) as of 03/20/2021 23:41 Ref. Range 02/16/2021 04:36 WBC Latest Ref Range: 4.0 - 9.5 x10(3)/mcL 11.0 (H) RBC Latest Ref Range: 4.58 - 5.54 x10(6)/mcL 3.47 (L) Hemoglobin Latest Ref Range: 13.7 - 16.5 gm/dL 10.7 (L) Hematocrit Latest Ref Range: 40.5 - 48.5 % 32.1 (L) MCV Latest Ref Range: 82.9 - 93.1 fL 92.5 MCH Latest Ref Range: 27.5 - 32.1 pg 30.8 MCHC Latest Ref Range: 32.0 - 35.7 gm/dL 33.3 RDWSD Latest Ref Range: 36.0 - 45.0 fL 45.5 (H) RDWCV Latest Ref Range: 11.4 - 13.8 % 13.4 Platelets Latest Ref Range: 145 - 357 x10(3)/mcL 430 (H) MPV Latest Ref Range: 7.6 - 12.9 fL 10.3 nRBC % Auto Latest Units: % 0.0 nRBC Abs Auto Latest Ref Range: 0.000 - 0.000 x10(3)/mcL 0.000 Sodium Latest Ref Range: 135 - 145 mmol/L 137 Potassium Latest Ref Range: 3.5 - 5.0 mmol/L 4.8 Chloride Latest Ref Range: 98 - 107 mmol/L 104 CO2 Latest Ref Range: 22 - 31 mmol/L 25 Anion Gap Latest Ref Range: 5 - 15 mmol/L 8 BUN Latest Ref Range: 10 - 20 mg/dL 11 Creatinine Latest Ref Range: 0.80 - 1.50 mg/dL 0.64 (L) Estimated GFR Latest Ref Range: >=60 mL/min/1.73 m?? 109 Calcium Latest Ref Range: 8.5 - 10.5 mg/dL 8.9 Magnesium Latest Ref Range: 0.69 - 1.07 mmol/L 0.89 Glucose Lvl Latest Ref Range: 65 - 199 mg/dL 172 Total Protein Latest Ref Range: 6.1 - 8.0 gm/dL 6.8 Albumin Latest Ref Range: 3.2 - 5.2 gm/dL 3.3 Total Bilirubin Latest Ref Range: 0.2 - 1.3 mg/dL 0.3 Bili, Direct Latest Ref Range: 0.0 - 0.3 mg/dL 0.1 Alk Phos Latest Ref Range: 40 - 130 unit/L 387 (H) AST Latest Ref Range: 0 - 39 unit/L 99 (H) ALT Latest Ref Range: 0 - 55 unit/L 193 (H) ASSESSMENT/PLANS: 56 yo mamle now recovered from recent episode of gallstone pancreatitis. He underwent successful ERCP with removal of retained stone from the CBD. We discussed the risks, benefits and alternatives tolaparoscopic cholecystectomy with IOC. Consent obtained and will plan to move forward with surgery on 03/27/21 RIDDHI MORTON MD 03/17/2021 documented in this encounter Plan of Treatment Scheduled Referrals Name Type Priority Associated Diagnoses Orde r Schedule Referral to General Surgery Outpatient Referral Routine Gallstone pancreatitis Ordered: 02/16/2021 documented as of this encounter Visit Diagnoses Diagnosis Gallstone pancreatitis Acute pancreatitis documented in this encounter Care Teams Imaging System Administrator Relationship Specialty Start Date End Date Peña Turner DO [address] [place] [address] PCP - General 05/13/10 07/21/21 documented as of this encounter
--- OUTSIDE RECORDS SUMMARY | 2024-06-12 14:15 | XMS_ITS | Encounter Summary ---
Author Organization [facility] Address [facility] [place] [address] Care Team Providers Care Airworthiness Safety Inspector Name Role Phone Johnny Peña WALDRON Primary Care Provider Reason for Visit * Auth/Cert Specialty Diagnoses / Procedures Referred By Tavia t Referred To Contact Diagnoses Gallstone pancreatitis Gallstone pancreatitis Procedures PRO ERCP,DIAGNOSTIC PRO ANESTH, UGI ENDOSCOPY ERCP ERCP Referral ID Status Reason Start Date Expiration Date Visits Re quested Visits Authorized [id number] 1 1 Encounter Details Date Type Department Care Team (Late st Contact Info) Description 03/10/2021 1:24 PM EDT Anesthesia Event [place] [address] Hilda Jara MD [facility] [address] [place] [address] Anesthesia Record Procedure Summary Procedure Name Responsible Anesthesiologist Anesthesia Start Time Anesthesia Stop Time ERCP (WRVU 5.85) (Trunk) Hilda Jara MD 03/10/21 1324 03/10/21 1426 Events Date Time Event Comment 03/10/2021 1324 AN Verify 1324 Start 1324 An Start Data 1333 An Induction 1335 An Intubation 1338 Anesthesia Ready Turned pron e with four people, neck as neutral as possible to get into scope, eyes and nose free from pressure 1353 1426 Extubation/LMA Out 1426 an stop data 1426 Recovery or ICU Handoff Liyah ent care was transferred to the destination unit staff after review of the patient's medical history, current anesthetic/surgical status and plan, according to the Provider Handoff Checklist. 1426 Stop Meds Name Total Propofol 250 mg Propofol INF 372 mg Dexamethasone 8 mg Succinylcholine 100 mg lactated ringers infusion 0 mL * Agents Name O2 Air N2O Sevoflurane (et) * Blood No blood administrations on file. Lines, Drains, and Airways Type Details Placement Removal ETT Mask Ventilation: Ea sy (1); ETT Type: Cuffed; ETT Size: 8 mm; Mac Blade: 4; Notes: Pre-O2, Asleep; Attempts: 1; Laryngoscopy Grade: 1; ETT Placement Verified By: Capnometry, Auscultation; Secured at Teeth: 23 cm; Inserted by: Leatha Sanchez crna; Removal Date: 03/10/21; Removal Time: 142503/10/21 1356 by 03/10/21 1426 by Pari Martinez CRNA (RETIRED) Peripheral IV Line - Single Lumen 03/10/21; 1238; cephalic vein (lateral side of arm), right; [id number] catheter system; 20 gauge; mimi bradshaw rn; distraction, intradermal injection, appears comfortable, tolerated well; 3 (attemptedx2 by trang whitney rn; attempted x1 by mimi bradshaw rn); metacarpal vein (top of hand), right, cephalic vein (lateral side of arm), right; 03/10/21; 1552 03/10/21 1238 by Maggy Whitney RN 03/10/21 1552 by Guera Torres RN ETT Mask Ventilation: Ramy malone (1); ETT Type: Cuffed, Oral; ETT Size: 7.5 mm; Mac Blade: 4; Notes: Asleep, Pre-O2, Cricoid Pressure; Attempts: 1; Laryngoscopy Grade: 2; ETT Placement Verified By: Auscultation, Capnometry, Visual; Secured at Teeth: 23 cm; Inserted by: Azam Martinez CRNA; Removal Date: 03/10/21; Removal Time: 142503/10/21 1335 by Pari Martinez CRNA 03/10/21 1426 by Pari Martinez CRNA documented in this encounter Social History [...] OR Notes * Anesthesia Postprocedure Evaluation - Hilda Jara MD - 03/10/2021 3:02 PM EDT Department of Anesthesiology Post-procedure Note Patient: Pancho Babb Procedure Summary Date: 03/10/21 Room / Location: [facility] ENDO 2 / [facility] ENDOSCOPY Anesthesia Start: 1324 Anesthesia Stop: 1426 Procedures: ERCP (N/A Trunk) UPPER EUS- ENDOSCOPIC ULTRASOUND (N/A Trunk) ERCP W/SPHINCTEROTOMY/PAPILLOTOMY Diagnosis: Gallstone pancreatitis (Gallstone pancreatitis) Surgeons: Seb Maldonado MD Responsible Provider: Hilda Jara MD Anesthesia Type: general ASA Status: 3 All Anesthesia Providers: Anesthesiologist: Hilda Jara MD [employer]CRETE FENCE BUILDER: Pari Martinez CRNA Vitals Value Taken Time BP 144/80 03/10/21 1500 Temp Pulse Resp 16 03/10/21 1440 SpO2 100 % 03/10/21 1502 Pain Level 0 03/10/21 1440 Vitals shown include unvalidated device data. Patient Location: PACU/[facility] Level of Consciousness: Awake and Alert Pain Management: Satisfactory Analgesia PONV: None Cardiovascular Status: At Baseline and Hemodynamically Stable Respiratory Status: At Baseline and Room Air Postoperative Fluid Status: Intravascular EUvolemia Possible Anesthetic Complications: NONE apparent at time of evaluation Final Primary Anesthesia Type: General (The anesthetic type performed was the same as planned.) Comments: Pt doing great thusfar! HILDA JARA MD * Anesthesia Preprocedure Evaluation - Hilda Jara MD - 03/07/2021 3:53 PM EDT Pre-Anesthesia Evaluation for: Pancho Babb a 56 y.o. male. Procedure(s): ERCP Patient Active Problem List Diagnosis ??? Hypertensive [...] DIAGNOSTIC performed by Ruslan Taylor MD at [facility] ENDOSCOPY Social History Tobacco Use ??? Smoking status: Never Smoker ??? Smokeless tobacco: Never Used Substance Use Topics ??? Alcohol use: Yes Comment: occasionally Social History Substance and Sexual Activity Drug Use No No Known Allergies Medications: MAR and/or home medications have been reviewed. Physical Exam: Preprocedure Vitals Current as of 03/07/21 1553 No BP, pulse, respiration, SpO2, or temperature recorded. Height: Weight: BMI: IBW: Airway Assessment: Mallampati: III TM distance: >3 FB Neck ROM: full Cardiovascular Assessment: Rhythm: regular Pulmonary Assessment: breath sounds clear to auscultation Dental Assessment: Misc Assessment: IV access: Peripheral line Last Filed Perioperative Cognitive Screening None Anesthesia Plan: ASA 3 general, with a(n) intravenous induction 56 y/o here for ERCP for gallstone pancreatitis - very sick last month, sepsis PMH: HTN, pre-DM, obesity, did drink EtOH but quit 5 months ago, non smoker PSH: colonoscopy , no problems with anesthesia Plan : General ETT, RSI, prone The patient was informed of the risks of anesthesia, and consent was obtained. The risks of anesthesia include, but are not limited to, PONV, pain, sore throat, and other rare but serious complications such as major organ damage, allergies, blood transfusions, intraoperative awareness, and dental/lip trauma. Region - Other Informed Consent: Anesthetic plan and risks discussed with patient. Plan discussed with CONCRETE FENCE BUILDER. Anesthesia Screening documented in this encounter Plan of Treatment Not on file documented as of this encounter Visit Diagnoses Not on filedocumented in this encounter Administered Medications Inactive Administered Medications - up to 3 most recent administrations Medication Order MAR Action Action Date Dose Rate Site dexamethasone (Decadron) injection Intravenous, PRN, Starting on 03/10/21 at 1335, Until Wed03/10/21 at 1426, Anesthesia Intra-op, Routine Given 03/10/2021 1:35 PM EDT 8 mg lactated ringers infusion 100 mL/hr, Intravenous, CONTINUOUS, Starting on Wed03/10/21 at 1230, Until Wed03/10/21 at 1553, Endoscopy (Day of Procedure) Restarted 03/10/2021 1:24 PM EDT New Bag 03/10/2021 12:39 PM EDT 100 mL/hr 100 mL/hr propofoL (Diprivan) 10 mg/mL bolus injection (Anesthesia) Intravenous, PRN, Starting on Wed03/10/21 at 1333, Until Wed03/10/21 at 1426, Anesthesia Intra-op Given 03/10/2021 1:35 PM EDT 50 mg Given 03/10/2021 1:33 PM EDT 200 mg propofoL (Diprivan) infusion Intravenous, CONTINUOUS PRN, Starting on Wed03/10/21 at 1346, Until Wed03/10/21 at 1426, Anesthesia Intra-op, Routine New Bag 03/10/2021 1:46 PM EDT 100 mcg/kg/min 55.8 mL/hr succinylcholine (Anectine;Quelicin) (20 mg/mL) injection Intravenous, PRN, Starting on Wed03/10/21 at 1335, Until Wed03/10/21 at 1426, Anesthesia Intra-op, Routine Given 03/10/2021 1:35 PM EDT 100 mg documented in this encounter Care Teams Airworthiness Safety Inspector Relationship Specialty Start Date End Date Peña Turner DO [address] [place] [address] [address] [place] [address] PCP - General 05/13/10 07/21/21 documented as of this encounter
--- OUTSIDE RECORDS SUMMARY | 2024-06-12 14:15 | XMS_ITS | Encounter Summary ---
Author Organization [facility] [place] [address] Care Team Providers Care Machine Printer Hose Name Role Phone Johnny Peña WALDRON Primary Care Provider [phone] Reason for Visit * Auth/Cert Specialty Diagnoses / Procedures Referred By Tavia t Referred To Contact Diagnoses Gallstone pancreatitis Gallstone pancreatitis Procedures PRO ERCP,DIAGNOSTIC PRO ANESTH, UGI ENDOSCOPY ERCP ERCP Referral ID Status Reason Start Date Expiration Date Visits Re quested Visits Authorized [id number] 1 1 Encounter Details Date Type Department Care Team (Late st Contact Info) Description 03/10/2021 1:00 PM EDT - 03/10/2021 2:30 PM EDT Surgery [place] [phone] Seb Maldonado MD [facility] [place] [address] ERCP (WRVU 5.85) Social History Tobacco Use Types Packs/Day Years [...] Sign Reading Time Taken Comments Blood Pressure 140/111 03/10/2021 2:30 PM EDT Pulse 69 03/10/2021 12:10 PM EDT Temperature 36.3 ??C (97.3 ??F) 03/10/2021 12:10 PM E DT Respiratory Rate 16 03/10/2021 2:30 PM EDT Oxygen Saturation 100% 03/10/2021 2:30 PM EDT Inhaled Oxygen Concentration - - Weight 93 kg (205 lb) 03/10/2021 12:10 PM EDT Height 177.8 cm (5' 10) 03/10/2021 12:10 PM EDT Body Mass Index 29.41 03/10/2021 12:10 PM EDT documented in this encounter Discharge Instructions * Discharge Instructions* Guera Torres RN - 03/10/2021 2:40 PM EDT Endoscopic Ultrasound (Oral): What to Expect At Home [...] the day after the procedure, use an lklc-mxj-asxgofo spray to numb your throat. Sucking on [...] occurs, please contact your Doctor. Please call [phone] before 8pm Mon-Fri with problems, questions or concerns. If you call after 8pm or on weekends, call the Hospital at [phone] and ask to speak to the Hospital Insurance Representative quality control tech raw materials and the scrubber operator will contact that person for you. When should you call for help? Call [phone] anytime you think you may need emergency [...] any problems. Where can you learn more? [facility]- View your After Visit Summary and more online at [email or web address] If you would like to provide feedback about your hospital experience, please call the Office of Patient and Family Relations at . If you have received this After Visit Summary in error, please immediately return it in person to the department, or notify the - Privacy Office by calling toll free at between the hours of 8AM and 5PM to arrange for our retrieval of the documents at no cost to you. Content Version: 12.2 ?? 9641-4577 [employer]. Care instructions adapted under license by [facility]. If you have questions about a medical condition or this instruction, always ask your healthcare professional. [employer] disclaims any warranty or liability for your use of this information.Endoscopic Retrograde Cholangiopancreatogram (ERCP): What to Expect at Home Your Recovery After you have an endoscopic retrograde cholangiopancreatogram (ERCP), you will be able to go home after your doctor or a nurse checks to make sure you are not having any problems. If you stay in thehospital overnight, you may go home the next day. You may have a sore throat for a day or two after the procedure. This care sheet gives you a general idea about how long it will take for you to recover. But each person recovers at a different pace. Follow the steps below to get better as quickly as possible. How can you care for yourself at [...] wants you to do. ?? If a sphincterotomy was done during the test, your doctor may tell you not to take aspirin or other anti-inflammatory medicines for a few days. These include ibuprofen (Advil, Motrin) and naproxen(Aleve). ?? If you have a sore throat the day after the procedure, use an qocu-juv-szfftgn spray to numb your throat. Sucking on [...] occurs, please contact your Doctor. Please call [phone] before 8pm Mon-Fri with problems, questions or concerns. If you call after 8pm or on weekends, call the Hospital at [phone] and ask to speak to the Hospital Insurance Representative quality control tech raw materials and the scrubber operator will contact that person for you. When should you call for help? Call [phone] anytime you think you may need emergency [...] contact your doctor if you have any problems, like Where can you learn more? [facility] View your After Visit Summary and more online at [email or web address] If you would like to provide feedback about your hospital experience, please call the Office of Patient and Family Relations at . If you have received this After Visit Summary in error, please immediately return it in person to the department, or notify the [facility] Privacy Office by calling toll free at between the hours of 8AM and 5PM to arrange for our retrieval of the documents at no cost to you. Content Version: 12.2 ?? 5233-2254 [employer]. Care instructions adapted under license by [facility]. If you have questions about a medical condition or this instruction, always ask your healthcare professional. [employer] disclaims any warranty or liability for your use of this information. * Patient Instructions* Seb Maldoando MD - 03/10/2021 4:29 PM EDT Please see Recommendations in the Provation procedure report which is documented in the procedural note in E-DH. documented in this encounter Medications at Time [...] A DAY 180 tablet 3 05/23/2018 08/29/2021 aspirin 81 mg Tablet, Delayed Release (E.C.) Take 81 mg by mouth daily. 03/26/2021 documented as of this encounter H&P Notes * Seb Maldonado MD - 03/10/2021 1:19 PM EDT Gastroenterology and Hepatology Pre-Procedure History and Physical Exam Procedure: ERCP: Indication: Recent biliary pancreatitis with stone in CBD on MRCP. Patient Active Problem List Diagnosis Code ??? [...] HEENT: Airway examined, oropharynx clear Mallampati Score: Per anesthesia\ LUNGS: Clear to auscultation HEART: Regular rate and rhythm, normal S1, S2 ABDOMEN: Normal bowel sounds, soft, non tender, non distended, A/P Proceed with the planned endoscopic procedure. ASA 3 - Patient with moderate systemic disease with functional limitations Sedation Plan: anesthesia Risks and benefits of the procedure explained to the patient. Consent signed. documented in this encounter Miscellaneous Notes * Op Note - Seb Maldonado MD - 03/10/2021 1:30 PM EDT [facility] Patient Name: Pancho Babb : [id number] MR#: [id number] Case Date: 03/10/2021 Surgeon: Surgeon(s) and Role: * Sbe Maldonado MD - Primary Preoperative diagnosis: Gallstone pancreatitis Postoperative diagnosis: * No post-op diagnosis entered * Procedure(s) (LRB): ERCP (N/A) UPPER EUS- ENDOSCOPIC ULTRASOUND (N/A) ERCP W/SPHINCTEROTOMY/PAPILLOTOMY Anesthesia: General Full procedure note is documented under the Procedure section of eDH. documented in this encounter Plan of Treatment Not on file documented as of this encounter Procedures Procedure Name Priority Date/Time Associated Diagnosis Comments XR ERCP Routine 03/10/2021 2:21 PM EDT UPPER EUS-ENDOSCOPIC ULTRASOUND Routine 03/10/2021 1:50 PM EDT Ercp, Sphincterotomy ([id number]) 03/10/2021 1:24 PM EDT Gallstone pancreatitis Endoscopic Us Exam, Esoph ([id number]) 03/10/2021 1:24 PM EDT Gallstone pancreatitis Ercp, Diagnostic ([id number]) 03/10/2021 1:24 PM EDT Gallstone pancreatitis ERCP Routine 03/10/2021 12:50 PM EDT documented in this encounter Results * XR ERCP (03/10/2021 2:21 PM EDT) Narrative [facility] - 03/10/2021 2:21 PM EDT See PACS for result report. Seb Maldonado MD IMG FILM LIBRARY ORD ERABLES Performing Organization Address City/State/[facility] Co de Phone Number [place], [place] * UPPER EUS-ENDOSCOPIC ULTRASOUND (03/10/2021 1:50 PM EDT) UPPER ENDOSCOPIC ULTRASOUND [facility] Endoscopy Procedure Date: 03/10/2021 1:50 PM ? Patient Name: Pancho Skinny ? Date of : 1965 ? Age: 56 ? Order #: [id number] ? Instrument Name: [id number] Loaner ? Procedure: ? Upper EUS Indications: ? Abnormal abdominal/pelvic CT scan, ? Choledocholithiasis on MRCP, ? Suspected choledocholithiasis, Acute ? pancreatitis, f/up necrotizing ? pancreatitis Providers: ? Seb Maldonado MD, Leeanna Aldrich, ? RN, Magnolia Villareal Referring MD: ?Peña Turner, DO Medicines: ? General Anesthesia Complications: ? No immediate complications. Procedure: ? Pre-Anesthesia Assessment: ? - Prior to the procedure, a History ? and Physical was performed, and ? patient medications, allergies and ? sensitivities were reviewed. The ? patient's tolerance of previous ? anesthesia was reviewed. ? - The risks and benefits of the ? procedure and the sedation options ? and risks were discussed with the ? patient. All questions were answered ? and informed consent was obtained. ? - ASA Grade Assessment: III - A ? patient with severe systemic disease. ? - General anesthesia under the ? supervision of an anesthesiologist ? was determined to be medically ? necessary for this procedure based on ? severe comorbidity (greater than ASA ? Grade II) and complex procedure ? (ERCP, EUS). ? The procedure, indications, benefits, ? risks and alternatives were explained ? to the patient. Specifically ? discussed were potential ? complications including, but not ? limited to, bleeding, perforation, ? infection, missing a cancer, and ? adverse medication reactions.The ? Endoscope was introduced through the ? mouth, and advanced to the second ? part of duodenum. The patient ? tolerated the procedure well. ? Findings: ? ENDOSCOPIC FINDING: : ? The examined esophagus was endoscopically normal. ? The entire examined stomach was endoscopically normal. ? The examined duodenum was endoscopically normal. ? ENDOSONOGRAPHIC FINDING: : ? The esophagus, stomach and duodenum were visualized ? endosonographically. ? One small stone was visualized endosonographically in ? the lower third of the main bile duct. The stone ? measured 5 mm in greatest dimension. It was ? hyperechoic and characterized by shadowing. The duct ? measures 5-6 mm. The gallbladder was not well ? visualized. ? Pancreatic parenchymal abnormalities were noted in ? the entire pancreas. These consisted of hypoechoic ? and heterogenous areas interspersed with echogenic ? strands. There is a 57 mm x 23 mm walled off fluid ? collection that appears to be within the wall of the ? posterior stomach just anterior to the pancreas body. ? Normal visualized portion of liver (limited exam). ? No lymphadenopathy seen. ? Moderate Sedation: ? Not applicable - See Anesthesia documentation Impression: ?- Choledocholithiasis. ? - Inflammatory changes in the ? pancreas associated with an walled ? off fluid collection that appears to ? be within the wall of the posterior ? stomach just anterior to the pancreas ? body (57 mm x 23 mm). This is likely ? an post inflammatory collection from ? recent necrotizing pancreatitis that ? is smaller than previous findings on ? CT so it was not sampled or drained. Recommendation: ?- Perform an ERCP today. ? - Conservative approach to fluid ? collection as long as he is improving ? clinically. ? Attending Participation: ? I personally performed the entire procedure. ? Seb Maldonado MD 03/10/2021 3:06:23 PM This report has been signed electronically. Number of Addenda: 0 Note Initiated On: 03/10/2021 1:50 PM PROVATION 03/10/2021 1:50 PM EDT Peña Turner DO GENERAL SURGICAL ORD ERABLES PROVATION * ERCP (03/10/2021 12:50 PM EDT) ERCP [facility] Endoscopy Procedure Date: 03/10/2021 12:50 PM ? Patient Name: Pancho Babb ? Date of : 1965 ? Age: 56 ? Order #: [id number] ? Instrument Name: [id number] ? Procedure: ? ERCP Indications: ? Abnormal MRCP, Abnormal endoscopic ? ultrasound of the biliary system, ? Evaluation and possible treatment of ? bile duct stone(s) Providers: ? Seb Maldonado MD, Leeanna Aldrich, ? VITOR, Magnolia Villareal Referring : ?Peña Turner, DO Medicines: ? General Anesthesia, Indomethacin 100 ? mg NV Complications: ? No immediate complications. Procedure: ? Pre-Anesthesia Assessment: ? - Prior to the procedure, a History ? and Physical was performed, and ? patient medications, allergies and ? sensitivities were reviewed. The ? patient's tolerance of previous ? anesthesia was reviewed. ? - The risks and benefits of the ? procedure and the sedation options ? and risks were discussed with the ? patient. All questions were answered ? and informed consent was obtained. ? - ASA Grade Assessment: III - A ? patient with severe systemic disease. ? - General anesthesia under the ? supervision of an anesthesiologist ? was determined to be medically ? necessary for this procedure based on ? severe comorbidity (greater than ASA ? Grade II) and complex procedure ? (ERCP, EUS). ? The procedure, indications, benefits, ? risks and alternatives were explained ? to the patient. Specifically ? discussed were potential ? complications including, but not ? limited to, bleeding, perforation, ? infection, pancreatitis, missing a ? cancer, and adverse medication ? reactions.The Duodenoscope was ? introduced through the mouth, and ? advanced to the duodenum where it was ? used to inject contrast into and used ? to inject contrast into the bile ? duct. The patient tolerated the ? procedure well. ? Findings: ? The burlap spreader film was normal. The esophagus was ? successfully intubated under direct vision. The scope ? was advanced to a normal major papilla in the ? descending duodenum without detailed examination of ? the pharynx, larynx and associated structures, and ? upper GI tract. The upper GI tract was grossly ? normal. The bile duct was deeply cannulated with the ? short-nosed traction sphincterotome and guidewire. ? Contrast was injected. I personally interpreted the ? bile duct images. There was brisk flow of contrast ? through the ducts. Image quality was excellent. ? Contrast extended to the hepatic ducts. Opacification ? of the entire biliary tree except for the gallbladder ? was successful. The maximum diameter of the ducts was ? 6 mm. The lower third of the main bile duct contained ? one stone, which was 5 mm in diameter. A 0.025 in ? Visiglide II wire was passed into the biliary tree. A ? 10 mm biliary sphincterotomy was made with a ? monofilament CleverCut pcna-vto-vzen sphincterotome ? using ERBE electrocautery. There was no ? post-sphincterotomy bleeding. The biliary tree was ? swept with an 11.5 mm balloon starting at the ? bifurcation. One stone was removed. No stones ? remained. The pancreatic duct was not accessed. ? Moderate Sedation: ? Not applicable - See Anesthesia documentation Impression: ?- Choledocholithiasis was found. ? Complete removal was accomplished by ? biliary sphincterotomy and balloon ? extraction. Recommendation: ?- Observe patient's clinical course. ? - F/up with surgery to consider ? timing of cholecystectomy. ? Attending Participation: ? I personally performed the entire procedure. ? Seb Maldonado MD 03/10/2021 3:12:54 PM This report has been signed electronically. Number of Addenda: 0 Note Initiated On: 03/10/2021 12:50 PM PROVATION 03/10/2021 12:5 0 PM EDT Peña Turner DO GENERAL SURGICAL ORD ERABLES PROVATION documented in this encounter Visit Diagnoses Diagnosis Gallstone pancreatitis Acute pancreatitis documented in this encounter Administered Medications Inactive Administered Medications - up to 3 most recent administrations Medication Order MAR Action Action Date Dose Rate Site indomethacin (Indocin) suppository 100 mg 100 mg, Rectal, ONCE, 1 dose, On Wed03/10/21 at 1430, Endoscopy (Day of Procedure), Routine Given 03/10/2021 2:08 PM EDT 100 mg lactated ringers infusion 100 mL/hr, Intravenous, CONTINUOUS, Starting on Wed03/10/21 at 1230, Until Wed03/10/21 at 1553, Endoscopy (Day of Procedure) Restarted 03/10/2021 1:24 PM EDT New Bag 03/10/2021 12:39 PM EDT 100 mL/hr 100 mL/hr documented in this encounter Active and Recently Administered Medications Times are shown in EDT. Scheduled Medication Order 03/08/2021 03/09/2021 03/10/2021 indomethacin (Indocin) suppository 100 mg (COMPLETED) 100 mg, Rectal, ONCE, 1 dose, On Wed03/10/21 at 1430, Endoscopy (Day of Procedure), Routine 1408 (Given - Provid er: Leeanna Aldrich RN) Continuous Medication Order 03/08/2021 03/09/2021 03/10/2021 lactated ringers infusion (CANCELED) 100 mL/hr, Intravenous, CONTINUOUS, Starting on Wed03/10/21 at 1230, Until Wed03/10/21 at 1553, Endoscopy (Day of Procedure) 1239 (New Bag - Prov ider: Maggy Molina RN)1323 (Paused - Provider: Hilda Jara MD - Comment: Switch to gravity)1324 (Restarted - Provider: Hilda Jara MD) documented in this encounter Care Teams Machine Printer Hose Relationship Specialty Start Date End Date Peña Turner DO [address] [place] [address] [address] [place] [id number] PCP - General 05/13/10 07/21/21 documented as of this encounter
--- OUTSIDE RECORDS SUMMARY | 2024-06-12 14:15 | XMS_ITS | Encounter Summary ---
[place] [address] Care Team Providers Care Medical Office Technician Name Role Phone Peña Turner DO Primary Care Provider [phone] Reason for Visit * Auth/Cert Specialty Diagnoses / Procedures Referred By Tavia t Referred To Contact Diagnoses Gallstone pancreatitis Gallstone pancreatitis Procedures PRO ERCP,DIAGNOSTIC PRO ANESTH, UGI ENDOSCOPY ERCP ERCP Referral ID Status Reason Start Date Expiration Date Visits Re quested Visits Authorized [id number] 1 1 Encounter Details Date Type Department Care Team (Late st Contact Info) Description 03/10/2021 12:25 PM EDT Ancillary [place] [id number] Social History Tobacco Use Types Packs/Day Years [...] XR ERCP Routine 03/10/2021 2:21 PM EDT documented in this encounter Results * XR ERCP (03/10/2021 2:21 PM EDT) Narrative [facility] - 03/10/2021 2:21 PM EDT See PACS for result report. Seb Maldonado MD [facility] FILM LIBRARY ORD ERABLES RAD [place], [place] documented in this encounter Visit Diagnoses Not on filedocumented in this encounter Care Teams Medical Office Technician Relationship Specialty Start Date End Date Peña Turner DO [address] [place] [address] PCP - General 05/13/10 07/21/21 documented as of this encounter
--- OUTSIDE RECORDS SUMMARY | 2024-06-12 14:15 | XMS_ITS | Encounter Summary ---
Author Organization [facility]ly [facility] Address [facility] [place] [address] Care Team Providers Care Concrete Rubber Name Role Phone Johnny Peña WALDRON Primary Care Provider [phone] Reason for Visit * Auth/Cert Specialty Diagnoses / Procedures Referred By Contac t Referred To Contact Diagnoses Biliary acute pancreatitis without necrosis or infection GALLSTONE PANCREATITIS Procedures PRO LAP, CHOLECYSTECTOMY/GRAPH LAPAROSCOPIC CHOLECYSTECTOMY WITH CHOLANGIOGRAM (WRVU 11.47) Referral ID Status Reason Start Date Expiration Date Visits Re quested Visits Authorized [id number] 1 1 Encounter Details Date Type Department Care Team (Latest Contact Info) Description 03/27/2021 5:50 AM EDT - 03/27/2021 2:30 PM EDT Hospital Encounter [place] [address] [facility] [place] [address] Discharge Disposition: Home Social History Tobacco Use [...] Sign Reading Time Taken Comments Blood Pressure 120/70 03/27/2021 1:30 PM EDT Pulse 71 03/27/2021 12:45 PM EDT Temperature 36.2 ??C (97.2 ??F) 03/27/2021 1 2:19 PM EDT Respiratory Rate 18 03/27/2021 1:00 PM EDT Oxygen Saturation 98% 03/27/2021 1:30 PM EDT Inhaled Oxygen Concentration - - [...] 6-8 hours after your surgery, please call [phone] before 5 PM weekdays and [phone] after 5 PM and weekends to discuss [...] 101.3 F. The number for questions is [phone] before 5 PM weekdays and [phone] after 5 PM and weekends. Follow-up: Follow-up appointment will be scheduled with Dr. Morton's team in 4 weeks. Appointment will be mailed to you. Please call [phone] (clinic number for appointments) to confirm date [...] of this encounter Progress Notes * Filipe Blue RN - 03/27/2021 2:57 PM EDT Patient [...] Procedure(s): LAPAROSCOPIC CHOLECYSTECTOMY WITH CHOLANGIOGRAM (WRVU 11.47) FOLLOW-UP NEEDED: Does pt need to f-u with surgeon or COMMISSIONER OF RELOCATION SERVICES (please indicate reason if attending provider): COMMISSIONER OF RELOCATION SERVICES How soon should TACS f/u be? 4 [...] DIAGNOSTIC performed by Ruslan Taylor MD at [facility] ENDOSCOPY ??? PRO ENDOSCOPIC US EXAM, ESOPH N/A 03/10/2021 UPPER EUS- ENDOSCOPIC ULTRASOUND performed by Seb Maldonado MD at [facility] ENDOSCOPY ??? PRO ERCP, SPHINCTEROTOMY 03/10/2021 ERCP W/SPHINCTEROTOMY/PAPILLOTOMY performed by Seb Maldonado MD at [facility] END[facility] ??? PRO ERCP,DIAGNOSTIC N/A 03/10/2021 ERCP performed by Seb Maldonado MD at [facility] ENDOS[facility] No current facility-administered medications on file [...] Morton MD - 03/27/2021 11:59 AM EDT [facility] Operative Note Patient Name: Pancho Babb : [id number] MR#: [id number] Case Date: 03/27/2021 Surgeon: Surgeon(s) and Role: * Riddhi Morton MD - Primary * Vazquez Castro MD - Resident Preoperative diagnosis: GALLSTONE PANCREATITIS Postoperative diagnosis: GALLSTONE PANCREATITIS Procedure(s) (LRB): LAPAROSCOPIC CHOLECYSTECTOMY WITH CHOLANGIOGRAM (WRVU 11.47) (N/A) Findings: 1. Gallbladder with evidence [...] Collection Info Order Time SPECIMEN TO PATHOLOGY [id number] GALLSTONE PANCREATITIS gallbladder. resection No 03/27/2021 11:17 [...] 03/27/2021 11:16 AM EDT Lap, Cholecystectomy/Gr aph (23273) Yes 03/27/2021 9:17 AM EDT GALLSTONE PANCREATITIS POCT GLUCOSE Routine 03/27/2021 6:18 AM EDT documented in this encounter Results * POCT Glucose (03/27/2021 1:20 PM EDT) Glucose, POC 157 65 - 199 mg/dL [facility] Comment: Supplemental ranges: <140 mg/dL before meals <180 mg/dL all other times of the day Blood 03/27/2021 1:20 PM EDT 03/27/2021 1:20 PM EDT Riddhi Morton MD POINT OF CARE TEST O RDERABLES [facility] [place] [address] * XR Fluoro No Rad <1Hr - OR Use (03/27/2021 11:53 AM EDT) Narrative Dicom, Auditing User - 03/27/2021 11:54 AM EDT This exam is auto-finalizing. No interpretation was done. Riddhi Morton MD IMG FLUORO ORDERABLE S * Specimen to Pathology (03/27/2021 11:17 AM EDT) AP Specimen 03/27/2021 11:1 7 AM EDT 03/27/2021 11:17 AM EDT Narrative [facility] - 03/27/2021 11:17 AM EDT Specimen requisition ordered. ??Separate Pathology report to follow Riddhi Morton MD PATHOLOGY/CYTOLOGY O RDERABLES [facility] [place] [address] * Surgical Pathology Report (03/27/2021 11:16 AM EDT) Final Diagnosis [id number] ? Location: [facility]; A The signing pathologist has (i) examined the relevant preparation(s) for the specimen(s) and (ii) rendered or confirmed the diagnosis(es). . ?Surgical Pathology DIAGNOSIS A - Gallbladder, cholecystectomy: - Chronic cholecystitis and cholelithiasis. Electronically signed by: ?Boby Preciado MD Verified: ??04/01/2021 14:59 ??Pathologist Performed at: ??-[facility] Dept. of Pathology, [place], [place] SPECIMEN(S) SUBMITTED A - Gallbladder, resection (1) CLINICAL INFORMATION Gallstone pancreatitis SPECIMEN PROCESSING A - Labeled/Fixative: Gallbladder, fresh. Quantity/Size: ??Single, 7.1 x 3.5 x 2.8 cm. Specimen Description: Gallbladder, received intact. Serosa: [place], hyperemic Hepatic margin: Cauterized Lumen contents: Red, viscous, bile. Gallstones: Present: Multiple, green gallstones ranging from, 0.3-1.2 cm Mucosa: Hyperemic with scattered yellow stippling in diffuse granularity Wall: Averaging 0.4 cm thick. Duct: Specimen appears transected across the neck; 1.3 cm, occluded. Ink Designation: The hepatic margin is inked black Sections/Processi ng: Wrapper Cashier sections in 4 cassettes as follows: ?A1: ??En face staple line margin at neck ?A2-A4: ??Wrapper Cashier mucosa ??con 04/01/2021 2:59 PM EDT [facility] GALLBLADDER STRUCTURE / Unknown 03/27/2021 11:16 AM EDT 03/27/2021 11:16 AM EDT Riddhi Morton MD PATHOLOGY/CYTOLOGY Lilia BEAUCHAMP Performing Organization Address [facility] Co de Phone Number [facility] [place] [address] * POCT Glucose (03/27/2021 6:18 AM EDT) Glucose, POC 114 65 - 199 mg/dL [facility] Comment: Supplemental ranges: <140 mg/dL before meals <180 mg/dL all other times of the day Blood 03/27/2021 6:18 AM EDT 03/27/2021 6:18 AM EDT Riddhi Morton MD POINT OF CARE TEST Lilia BEAUCHAMP Performing Organization Address [facility] Co de Phone Number [facility] [place] [address] documented in this encounter Visit Diagnoses Not [...] Given 03/27/2021 12:46 PM EDT 975 mg ibuprofen (Advil) tablet 600 mg 600 mg, Oral, EVERY 6 HOURS PRN, Starting on Vicky 03/27/21 at 1238, Until Vicky 03/27/21 at 1701, Pain, Administer orally with milk or food to minimize GI irritation. Maximum dose of 3,200 mg from all sources in 24 hours, Routine lactated ringers infusion 1,000 mL, at 100 [...] (New Bag - Prov ider: Shweta Iqbal RN)09 (Paused - Provider: Mike Nettles CRNA - Comment: Switch to gravity)0902 (New Bag - Provider: Mike Nettles CRNA)1129 (New Bag - Provider: Mike Nettles CRNA)1157 (Anesthesia Volume Adjustment - Provider: Mike Nettles CRNA) PRN Medication Order 03/25/2021 03/26/2021 03/27/2021 BUpivacaine (pf) (Marcaine) (5 mg/mL) 0.5% injection (CANCELED) ONCE PRN, Starting on Vicky 10 at 1204, Until Vicky 03/27/21 at 1701, [...] EVERY 4 HOURS PRN, Starting on Vicky 21 at 1237, Until Vicky 03/27/21 at 1701, Pain, Routine documented in this encounter Care Teams Concrete Rubber Relationship Specialty Start Date End Date Peña Turner DO [address] [place] [address] [address] [place] [address] PCP - General 05/13/10 07/21/21 documented as of this encounter
--- OUTSIDE RECORDS SUMMARY | 2024-06-12 14:15 | XMS_ITS | Encounter Summary ---
Author Organization [facility] Address [facility] [place] [address] Care Team Providers Care Application Analyst Name Role Phone Johnny Peña WALDRON Primary Care Provider [phone] Reason for Visit * Auth/Cert Specialty Diagnoses / Procedures Referred By Tavia t Referred To Contact Diagnoses Gallstone pancreatitis Gallstone pancreatitis Procedures PRO ERCP,DIAGNOSTIC PRO ANESTH, UGI ENDOSCOPY ERCP ERCP Referral ID Status Reason Start Date Expiration Date Visits Re quested Visits Authorized [id number] 1 1 Encounter Details Date Type Department Care Team (Latest Contact Info) Description 03/10/2021 11:38 AM EDT - 03/10/2021 4:29 PM EDT Hospital Encounter [place] [address] Seb Maldonado MD [facility] [place] [address] Discharge Disposition: Home Social History Tobacco Use [...] Sign Reading Time Taken Comments Blood Pressure 151/82 03/10/2021 3:40 PM EDT Pulse 69 03/10/2021 12:10 PM EDT Temperature 36.3 ??C (97.3 ??F) 03/10/2021 12:10 PM E DT Respiratory Rate 16 03/10/2021 3:40 PM EDT Oxygen Saturation 99% 03/10/2021 3:40 PM EDT Inhaled Oxygen Concentration - [...] the day after the procedure, use an srkg-rwz-ownljxr spray to numb your throat. Sucking on [...] occurs, please contact your Doctor. Please call [phone] before 8pm Mon-Fri with problems, questions or concerns. If you call after 8pm or on weekends, call the Hospital at [phone] and ask to speak to the Tool Grinder Operator immigration patrol inspector and the tank house operator will contact that person for you. When should you call for help? Call [phone] anytime you think you may need emergency [...] any problems. Where can you learn more? [facility] View your After Visit Summary and more online at [email or web address] If you would like to [...] cost to you. Content Version: 12.2 ?? [id number] IP Ghoster. Care instructions adapted under license by [facility]. If you have questions about a medical condition or this instruction, always ask your healthcare professional. IP [employer] disclaims any warranty or liability for your [...] the day after the procedure, use an fajq-rcr-jzjryga spray to numb your throat. Sucking on [...] occurs, please contact your Doctor. Please call [phone] before 8pm Mon-Fri with problems, questions or concerns. If you call after 8pm or on weekends, call the Hospital at [phone] and ask to speak to the Tool Grinder Operator immigration patrol inspector and the tank house operator will contact that person for you. When should you call for help? Call [phone] anytime you think you may need emergency [...] problems, like Where can you learn more? [facility] View your After Visit Summary and more online at [email or web address] If you would like to provide feedback about your hospital experience, please call the Office of Patient and Family Relations at . If you have received this After Visit Summary in error, please immediately return it in person to the department, or notify the [facility] Privacy Office by calling toll free at between the hours of 8AM and 5PM to arrange for our retrieval of the documents at no cost to you. Content Version: 12.2 ?? [id number] IP Ghoster. Care instructions adapted under license by [facility]. If you have questions about a medical condition or this instruction, always ask your healthcare professional. [employer] disclaims any warranty or liability for your use of this information. * Patient Instructions* Seb Maldonado MD - 03/10/2021 4:29 PM EDT Please [...] Maldonado MD - 03/10/2021 1:30 PM EDT [facility] Operative Note Patient Name: Pancho Babb : [id number] MR#: [id number] Case Date: 03/10/2021 Surgeon: Surgeon(s) and Role: * Seb Maldonado MD - Primary Preoperative diagnosis: Gallstone [...] Routine 03/10/2021 1:50 PM EDT Ercp, Sphincterotomy (27657) 03/10/2021 1:24 PM EDT Gallstone pancreatitis Endoscopic Us Exam, Esoph ([id number]) 03/10/2021 1:24 PM EDT Gallstone pancreatitis Ercp, Diagnostic (60159) 03/10/2021 1:24 PM EDT Gallstone pancreatitis ERCP Routine 03/10/2021 12:50 PM EDT documented in this encounter Results * XR ERCP (03/10/2021 2:21 PM EDT) Narrative [facility] - 03/10/2021 2:21 PM EDT See PACS for result report. Seb Maldonado MD [facility] FILM LIBRARY ORD ERABLES Performing Organization Address City/State/[facility] Co de Phone Number [place], [place] * UPPER EUS-ENDOSCOPIC ULTRASOUND (03/10/2021 1:50 PM EDT) UPPER ENDOSCOPIC ULTRASOUND [facility] Endoscopy Procedure Date: 03/10/2021 1:50 PM ? Patient Name: Pancho Babb ? Date of : 1965 ? Age: 56 ? Order #: [id number] ? Instrument Name: [id number] Loaner ? Procedure: ? Upper EUS Indications: [...] PROVATION * ERCP (03/10/2021 12:50 PM EDT) Pathologist [facility] ERCP [facility] Endoscopy Procedure Date: 03/10/2021 12:50 PM ? Patient Name: Pancho Babb ? Date of : 1965 ? Age: 56 ? Order #: [id number] ? Instrument Name: [id number] ? Procedure: ? ERCP Indications: ? Abnormal MRCP, Abnormal endoscopic ? ultrasound of the biliary system, ? Evaluation and possible treatment of ? bile duct stone(s) Providers: ? Seb Maldonado MD, Leeanna Aldrich, ? VITOR, Magnolia Villareal Referring : ?Peña Turner, DO Medicines: ? General Anesthesia, Indomethacin 100 ? mg DC Complications: ? No immediate complications. Procedure: ? [...] ? procedure well. ? Findings: ? The personal assistant film was normal. The esophagus was ? [...] was made with a ? monofilament CleverCut ptnz-uzl-tioy sphincterotome ? using ERBE electrocautery. There was [...] MD) documented in this encounter Care Teams Application Analyst Relationship Specialty Start Date End Date Peña Turner DO [address] [place], [place] [address]Y [facility] [address] [place] [address] PCP - General 05/13/10 07/21/21 documented as of this encounter
--- OUTSIDE RECORDS SUMMARY | 2024-06-12 14:15 | XMS_ITS | Encounter Summary ---
Author Organization [facility] Address [facility] [place] [address] Care Team Providers Care Construction Electrician Name Role Phone Peña Turner DO Primary Care Provider Encounter Details Date Type Department Care Team (Late st Contact Info) Description 02/17/2021 Telephone [place] [id number] Jagdeep Rizo Social History Tobacco Use Types Packs/Day Years Used Date Smoking Tobacco: Never Smokeless Tobacco: Never Alcohol Use Standard Drinks/Week Comments Yes 0 (1 standard drink = 0.6 oz pur e alcohol) occasionally Sex and Gender Information Value Date Recorded Sex Assigned at Not on file Gender Identity Not on file Sexual Orientation Not on file documented as of this encounter Miscellaneous Notes * Telephone Encounter - Jagdeep Rizo - 02/17/2021 1:44 PM EDT Pancho Babb [id number] Diagnosis/Indication: Gallstone pancreatitis 1. Have you ever had a/an ERCP before? No 2. Do you take any blood thinners or have you been diagnosed with a bleeding disorder that increases your risk of bleeding with procedures? No 3. Do you have a Pacemaker or Defibrillator device? No 4. Are you a diabetic? Yes: Controlled by diet or medication? Medication 5. Do you have any Allergies to [...] preference regarding the gender of your provider? No Preference 12. Is there any other information you [...] have changed* Estimated body mass index is 34.76 kg/m?? as calculated from the following: Height as of 02/04/21: 177 cm (5' 9.69). Weight as of 02/10/21: 108.9 kg (240 lb 1.3 oz). Age:55 y.o. documented in this encounter Plan of Treatment Not on file documented as of this encounter Visit Diagnoses Not on filedocumented in this encounter Care Teams Construction Electrician Relationship Specialty Start Date End Date Peña Turner DO [address] [place] [address] PCP - General 05/13/10 07/21/21 documented as of this encounter
--- OUTSIDE RECORDS SUMMARY | 2024-06-12 14:15 | XMS_ITS | Encounter Summary ---
Author Organization [facility] [place] [address] Care Team Providers Care Professor Of Finance Name Role Phone JohnnyPeña moreira DO Primary Care Provider Encounter Details Date Type Department Care Team (Late st Contact Info) Description 03/10/2021 Notes Only Gastroenterology at [facility] [place] [address] Ruslan Jennings Jr. Social History Tobacco Use Types Packs/Day Years Used Date Smoking Tobacco: Never Smokeless Tobacco: Never Comments:never vape Alcohol Use Standard Drinks/Week Comments Yes 0 (1 standard drink = 0.6 oz pur e alcohol) occasionally Sex and Gender Information Value Date Recorded Sex Assigned at Not on file Gender Identity Not on file Sexual Orientation Not on file documented as of this encounter Progress Notes * Ruslan Jennings Jr. - 03/10/2021 2:34 PM EDT Stent vs. Indomethacin for Preventing Post-ERCP Pancreatitis: The SVI Trial PI: Raleigh Hale MD MS Velos # [id number] Objective of visit: Ruslan Jerome Jr , research coordinator, and Dr. Maldonado met with Pancho Babb in [facility] to provide information regarding protocol [id number], answer questions or concerns about study plan, and evaluate his interest in study participation. Information Provided: Protocol was reviewed with Pancho Babb including, a description of the proposed care, treatment, services, medications, interventions, procedures, and follow-up including duration of subject's participation in study. Purpose of the study was also reviewed with the patient. Potential discomforts and risks were reviewed. The patient was informed regarding the uncertainties, both in terms of benefits as well as risks that are part of participation in clinical trials. Discussed confidentiality of patient's health information as specified in the protocol. Patient was advisedthat he may discontinue treatment at any time and that refusing to participate or discontinuing treatment will not compromise the patient's access to treatment options or care. Financial considerations in the context of clinical trials reviewed. The patient was given written information regarding the protocol during his visit on 03/10/21 and was offered adequate time to review the information. The patient was given adequate time to ask questions and review concerns, all of which were answered to the patient's satisfaction by Dr. Maldonado. The PI/Sub I was available to answer any medical related questions if applicable. Pancho Babb inquired whether he would have to get an MRI or just an X-ray, which was answered to his satisfaction. Assessment/Outcome: Pancho Babb verbalized understanding of the protocol and consents for treatment by using the teach-back method and being able to relay the purpose of the study and known possible risks/side effects of the procedure and treatment. Pancho Babb signed and dated consent version 7 on 03/10/21. A copy of the signed consent form was given to him for his records. Original, signed informed consent document will be scanned into the patient's electronic medical record and stored in the subject's study binder. Written informed consent was obtained prior to any study related procedures being done. Plan: 1. Pancho Babb agreed to participate in the above mentioned clinical trial. 2. Informed consent form signed 3. Pain questionnaire administered as per SVI protocol 4. Patient will continue to be screened on study [id number] to determine if patient meets criteria during the procedure * Ruslan Jennings Jr. - 03/10/2021 2:34 PM EDT During ERCP for Pancho Babb, the patient met no inclusion criteria. The patient was consequently not enrolled in the SVI trial. Patient was informed that he was no longer in the study following the procedure and will continue to be treated with standard of care. documented in this encounter Plan of Treatment Not on file documented as of this encounter Visit Diagnoses Not on filedocumented in this encounter Care Teams Professor Of Finance Relationship Specialty Start Date End Date Peña Turner DO [address] [facility] [address] [place] [address] PCP - General 05/13/10 07/21/21 documented as of this encounter
--- OUTSIDE RECORDS SUMMARY | 2024-06-12 14:15 | XMS_ITS | Encounter Summary ---
[place] [address] Care Team Providers Care Lacquerer Name Role Phone Peña Turner DO Primary Care Provider Encounter Details Date Type Department Care Team (Late st Contact Info) Description 02/20/2021 Telephone [place] [phone] Nat Guthrie Social History Tobacco Use Types Packs/Day Years [...] Notes * Telephone Encounter - Nat Guthrie - 02/20/2021 9:47 AM EDT Attempted to contact patient to coordinate one month followup with JAIRO RODRIGUEZ & Attending, CT Scan prior. VM left requesting a call-back. documented in this encounter Plan of Treatment Not on file documented as of this encounter Visit Diagnoses Not on filedocumented in this encounter Care Teams Lacquerer Relationship Specialty Start Date End Date Peña Turner DO [address] [place] [address] PCP - General 05/13/10 07/21/21 documented as of this encounter
--- OUTSIDE RECORDS SUMMARY | 2024-06-12 14:15 | XMS_ITS | Encounter Summary ---
[place] [address] Care Team Providers Care Hot Billet Shear Operator Name Role Phone Peña Turner DO Primary Care Provider [phone] Encounter Details Date Type Department Care Team (Late st Contact Info) Description 02/18/2021 Orders [place] [address] Dasia Rosa MD Social History Tobacco Use Types Packs/Day [...] on filedocumented in this encounter Care Teams Hot Billet Shear Operator Relationship Specialty Start Date End Date Peña Turner DO [address] [place] [address] PCP - General 05/13/10 07/21/21 documented as of this encounter
--- OUTSIDE RECORDS SUMMARY | 2024-06-12 14:16 | XMS_ITS | Encounter Summary ---
Author Organization [facility] [place] [address] Care Team Providers Care Aeronautical Products Sales Engineer Name Role Phone Peña Turner DO Primary Care Provider Reason for Visit * Diagnostic Test (Routine) - Closed Specialty Diagnoses / Procedures Referred By Contac t Referred To Contact Radiology Diagnoses Benign neoplasm of spinal cord Procedures MRI Lumbar Spine wo Contrast (Generic) Peña Turner DO [address] [place] [address] [facility] [place] [address] Referral ID Status Reason Start Date Expiration Date V isits Requested Visits Authorized [id number] Closed Specialty Service Requested 03/01/2020 08/28/2020 1 1 Encounter Details Date Type Department Care Team (Late st Contact Info) Description 03/22/2020 11:40 AM EDT - 03/22/2020 11:59 PM EDT Hospital [place] [id number] Peña Turner DO [address] [place], [place] [id number] Discharge Disposition: Home Social History Tobacco Use [...] Sig Dispensed Refills Start Date End Date lisinopril (PRINIVIL;ZESTRIL) 20 mg Tablet Take 20 mg by mouth daily. metFORMIN XR (Glucophage XR) 500 mg Tablet Sustained Release 24 hr Take 2 tablets by mouth daily. 180 tablet 3 09/11/2019 06/24/2020 ergocalciferol (vitamin D) 50,000 unit Capsule Take 1 capsule by mouth once a week. 13 capsule 4 09/11/2019 06/24/2020 metFORMIN (FORTAMET) 500 mg Tablet Extended Rel 24 hr Take 2 tablets by mouth daily. 270 tablet 4 02/21/2019 02/15/2021 spironolactone (ALDACTONE) 25 mg Tablet TAKE ONE TABLET BY MOUTH TWICE A DAY 180 tablet 3 05/23/2018 08/29/2021 amLODIPine (NORVASC) 5 mg Tablet 5 mg daily. 02/02/2017 02/16/2021 aspirin 81 mg Tablet, Delayed Release (E.C.) Take 81 mg by mouth daily. 03/26/2021 documented as of this encounter Plan of Treatment Not on file documented as of this encounter Procedures Procedure Name Priority Date/Time Associated Diagnosis Comments MRI LUMBAR SPINE WITHOUT CONTRAST Routine 03/22/2020 1:57 PM EDT Benign neoplasm of spinal cord documented in this encounter Results * MRI Lumbar Spine wo Contrast (Generic) (03/22/2020 1:57 PM EDT) Anatomical Region Laterality Modality L-spine Magnetic Resonan ce Impressions 03/22/2020 4:26 PM EDT Unchanged appearance of chronic degenerative findings with varying degrees of canal and neural foraminal narrowing as described above.. No evidence of recurrent neoplasm. Comment: The following findings are so common in people without low back pain that while we report their presence, they must be interpreted with caution and in context of the clinical situation (Reference- Ange Et Al, Spine 2001). Findings: (Prevalence in patients without low back pain), disc degeneration (decreased T2 signal, height loss, bulge) (91%), disc T2-signal loss (83%), disc height loss (56%), disc bulge (64%), disc protrusion (32%), annular fissure (38%). I have personally reviewed the image(s) and the resident's interpretation and agree with the findings, Sal Mckeon at 03/22/2020 4:26 PM Thank you for letting us participate in the care of this patient. For questions regarding this report, please contact the number below. ? Narrative 03/22/2020 4:26 PM EDT EXAMINATION: MRI LUMBAR SPINE WO CONTRAST (GENERIC) CLINICAL HISTORY: Schwannowa of spinal cord TECHNIQUE: MRI of the lumbar spine performed without intravenous contrast administration. COMPARISON: MRI L-spine performed on November 03, 2018, November 17, 2016, November 26, 2015 and, July 13, 2014 FINDINGS: Stable grade 1 L5-S1 anterolisthesis because of bilateral pars defects. Trace L4-L5 retrolisthesis otherwise alignment is maintained. Minimal disc space narrowing. Vertebral body heights are well-maintained. There are post laminectomy changes at the level of L1. Bridging anterior osteophyte at the level of L1-L2. The conus terminates at the level of L1. There is increased epidural fat at the level of L5-S1. Segmental analysis is as follows: T12-L1: Stability of the small central disc extrusion that minimally indents the thecal sac. The neural foramen are patent. L1-L2: Minimal disc bulges abuts the ventral thecal sac. No significant spinal canal or neural foraminal stenosis L2-L3: Minimal disc bulge abuts the ventral thecal sac. There is bilateral facet arthropathy which results in moderate moderate left neural foraminal narrowing and mild right neural foraminal narrowing. L3-L4: No significant spinal canal stenosis. There is moderate bilateral facet arthropathy which results in mild narrowing of the neural foramen. L4-L5: Stability of the the central disc protrusion containing an annular fissure. Disc bulge and facet arthropathy result in moderate bilateral neural foraminal narrowing. Tiny right foraminal synovial cyst identified. L5-S1: Mild disc bulge indents the anterior epidural fat. No significant spinal canal stenosis. There is moderate bilateral facet arthropathy with mild bilateral neural foraminal narrowing Procedure Note Sal Mckeon MD - 03/22/2020 EXAMINATION: MRI LUMBAR SPINE WO CONTRAST (GENERIC) CLINICAL HISTORY: Schwannowa of spinal cord TECHNIQUE: MRI of the lumbar spine performed without intravenous contrastadministration. COMPARISON: MRI L-spine performed on November 03, 2018, November 17, 2016, November 26, 2015 and,July 13, 2014 FINDINGS: Stable grade 1 L5-S1 anterolisthesis because of bilateral pars defects.Trace L4-L5 retrolisthesis otherwise alignment is maintained. Minimal discspace narrowing. Vertebral body heights are well-maintained. There are post laminectomy changes at the level of L1. Bridging anterior osteophyte at the level of L1-L2. The conus terminates at the level of L1.There is increased epidural fat at the level of L5-S1. Segmental analysis is as follows: T12-L1: Stability of the small central disc extrusion that minimallyindents the thecal sac. The neural foramen are patent. L1-L2: Minimal disc bulges abuts the ventral thecal sac. No significantspinal canal or neural foraminal stenosis L2-L3: Minimal disc bulge abuts the ventral thecal sac. There is bilateralfacet arthropathy which results in moderate moderate left neural foraminalnarrowing and mild right neural foraminal narrowing. L3-L4: No significant spinal canal stenosis. There is moderate bilateralfacet arthropathy which results in mild narrowing of the neural foramen. L4-L5: Stability of the the central disc protrusion containing anannular fissure. Disc bulge and facet arthropathy result in moderate bilateralneural foraminal narrowing. Tiny right foraminal synovial cyst identified. L5-S1: Mild disc bulge indents the anterior epidural fat. No significantspinal canal stenosis. There is moderate bilateral facet arthropathy with mild bilateral neural foraminal narrowing IMPRESSION Unchanged appearance of chronic degenerative findings with varying degreesof canal and neural foraminal narrowing as described above.. No evidence of recurrent neoplasm. Comment: The following findings are so common in people without low backpain that while we report their presence, they must be interpreted with cautionand in context of the clinical situation (Reference- Sandik Et Al, [id number]). Findings: (Prevalence in patients without low back pain), discdegeneration (decreased T2 signal, height loss, bulge) (91%), disc T2-signal loss(83%), disc height loss (56%), disc bulge (64%), disc protrusion (32%), annularfissure (38%). I have personally reviewed the image(s) and the resident's interpretationand agree with the findings, Sal Mckeon at 03/22/2020 4:26 PM Thank you for letting us participate in the care of this patient. Forquestions regarding this report, please contact the number below. Peña Turner DO IMG MRI ORDERABLES documented in this encounter Visit Diagnoses Not on filedocumented in this encounter Care Teams Aeronautical Products Sales Engineer Relationship Specialty Start Date End Date Peña Turner DO [address] [place], [place] [address]Y [address] [place] [address] PCP - General 05/13/10 07/21/21 documented as of this encounter
--- OUTSIDE RECORDS SUMMARY | 2024-06-12 14:16 | XMS_ITS | Encounter Summary ---
Author Organization [facility] Address [facility] [place] [address] Care Team Providers Care Painter And Decorator Apprentice Name Role Phone Peña Turner DO Primary Care Provider Encounter Details Date Type Department Care Team (Late st Contact Info) Description 02/03/2021 12:05 AM EDT Ancillary Procedure Radiology Library at [facility] [place] [address] Peña Turner DO [address] [place] [address] Social History Tobacco Use Types Packs/Day Years [...] Associated Diagnosis Comments FILM LIBRARY STORAGE ONLY ULTRASOUND STUDY Routine 02/03/2021 12:05 AM EDT documented in this encounter Results * Film Library- Storage Only Ultrasound Study (02/03/2021 12:05 AM EDT) Narrative KENNY BULLOCK - 02/04/2021 10:14 AM EDT This exam is auto-finalizing. It's purpose is for storage only. Peña Turner DO IMG FILM LIBRARY ORD ERABLES [place], [place] documented in this encounter Visit Diagnoses Not on filedocumented in this encounter Care Teams Painter And Decorator Apprentice Relationship Specialty Start Date End Date Peña Turner DO [address] [facility] [facility] [address] [place] [address] PCP - General 05/13/10 07/21/21 documented as of this encounter
--- OUTSIDE RECORDS SUMMARY | 2024-06-12 14:16 | XMS_ITS | Encounter Summary ---
Author Organization [facility] Address [facility] [place] [address] Care Team Providers Care Warp Hauler Name Role Phone Peña Turner DO Primary Care Provider Encounter Details Date Type Department Care Team (Late st Contact Info) Description 02/03/2021 Ancillary Procedure Radiology Library at [facility] [place] [address] Peña Turner DO [address] [place], [place] [address] Social History Tobacco Use Types Packs/Day Years [...] Associated Diagnosis Comments FILM LIBRARY STORAGE ONLY DX CHEST Routine 02/03/2021 12:00 AM EDT documented in this encounter Results * Film Library- Storage Only DX Chest (02/03/2021 12:00 AM EDT) Narrative KENNY BULLOCK - 02/04/2021 10:11 AM EDT This exam is auto-finalizing. It's purpose is for storage only. Peña Turner DO IMG FILM LIBRARY ORD ERABLES [place]RA [place] documented in this encounter Visit Diagnoses Not on filedocumented in this encounter Care Teams Warp Hauler Relationship Specialty Start Date End Date Peña Turner DO [address] [place] [address] [address] [facility] [place] [address] PCP - General 05/13/10 07/21/21 documented as of this encounter
--- OUTSIDE RECORDS SUMMARY | 2024-06-12 14:16 | XMS_ITS | Encounter Summary ---
Author Organization [facility] Address [facility] [place] [address] Care Team Providers Care Supervisor Cereal Name Role Phone Peña Turner DO Primary Care Provider Reason for Visit * Reason Comments Medication Refill Encounter Details Date Type Department Care Team (Late st Contact Info) Description 05/20/2018 [place] [address] Celso Raza MD [facility] [place] [address] Social History Tobacco Use Types Packs/Day Years [...] on filedocumented in this encounter Care Teams Supervisor Cereal Relationship Specialty Start Date End Date Peña Turner DO [address] [place], [place] [address] PCP - General 05/13/10 07/21/21 documented as of this encounter
--- OUTSIDE RECORDS SUMMARY | 2024-06-12 14:16 | XMS_ITS | Encounter Summary ---
Author Organization [facility] Address [facility] [place] [address] Care Team Providers Care Salt Cutter Name Role Phone Peña Turner DO Primary Care Provider [phone] Encounter Details Date Type Department Care Team (Late st Contact Info) Description 02/02/2021 Ancillary Procedure Radiology Library at [facility] [place] [address] Peña Turner DO [address] [place], [place] [address] Social History Tobacco Use Types Packs/Day Years [...] STORAGE ONLY CT CHEST ABDOMEN PELVIS Routine 02/02/2021 12:00 AM EDT documented in this encounter Results * Film Library- Storage Only CT Chest Abdomen Pelvis (02/02/2021 12:00 AM EDT) Narrative ARA - 02/04/2021 10:10 AM EDT This exam is auto-finalizing. It's purpose is for storage only. Peña Turner DO IMG FILM LIBRARY ORD ERABLES [place], [place] documented in this encounter Visit Diagnoses Not on filedocumented in this encounter Care Teams Salt Cutter Relationship Specialty Start Date End Date Peña Turner DO [address] [place], [place] [address]Y [facility] 1 [place] [address] PCP - General 05/13/10 07/21/21 documented as of this encounter
--- OUTSIDE RECORDS SUMMARY | 2024-06-12 14:16 | XMS_ITS | Encounter Summary ---
[place] [address] Care Team Providers Care Disaster Recovery Consultant Name Role Phone Peña Turner DO Primary Care Provider [phone] Reason for Visit * Reason Onset Date Comments Medication Refill 09/11/2019 Encounter Details Date Type Department Care Team (Late st Contact Info) Description 09/11/2019 Refill [place] [phone] Anneliese Ramirez RN Social History Tobacco Use Types Packs/Day [...] on filedocumented in this encounter Care Teams Disaster Recovery Consultant Relationship Specialty Start Date End Date Peña Turner DO [address] [place] [address] PCP - General 05/13/10 07/21/21 documented as of this encounter
--- OUTSIDE RECORDS SUMMARY | 2024-06-12 14:16 | XMS_ITS | Encounter Summary ---
Author Organization [facility] Address [facility] [place] [address] Care Team Providers Care Tar Heater Name Role Phone Peña Turner DO Primary Care Provider [phone] Encounter Details Date Type Department Care Team (Late st Contact Info) Description 02/04/2021 10:15 AM EDT Ancillary Procedure Radiology Library at [facility] [place] [address] Peña Turner DO [address] [place] [address] Social History Tobacco Use Types Packs/Day Years [...] FILM LIBRARY STORAGE ONLY DX CHEST Routine 02/04/2021 10:13 AM EDT documented in this encounter Results * Film Library- Storage Only DX Chest (02/04/2021 10:13 AM EDT) Narrative KENNY BULLOCK - 02/04/2021 10:13 AM EDT This exam is auto-finalizing. It's purpose is for storage only. Peña Turner DO IMG FILM LIBRARY ORD ERABLES [place], [place] documented in this encounter Visit Diagnoses Not on filedocumented in this encounter Care Teams Tar Heater Relationship Specialty Start Date End Date Peña Turner DO [address] [facility] [facility] 1 [place] [address] PCP - General 05/13/10 07/21/21 documented as of this encounter
--- OUTSIDE RECORDS SUMMARY | 2024-06-12 14:16 | XMS_ITS | Encounter Summary ---
Author Organization [facility] Address [facility] [place] [address] Care Team Providers Care Economic Analyst Name Role Phone Peña Turner DO Primary Care Provider Reason for Visit * Reason Comments Skin Lesion * Consultation (Routine) - Closed Specialty Diagnoses / Procedures Referred By Tavia t Referred To Contact Dermatology Diagnoses fibrous papule of face Peña Turner DO [address] [place] [address] [facility] Dermatology [address] [place] [address] Referral ID Status Reason Start Date Expiration Date V isits Requested Visits Authorized [id number] Closed Consult, Test & Treat Connection Center 06/28/2017 06/28/2018 1 1 Encounter Details Date Type Department Care Team (Late st Contact Info) Description 07/09/2017 2:40 PM EST Office Visit Dermatology at [facility] [address] [place] [phone] Leatha Raygoza MD [facility] [address] [facility] [address] Neoplasm of uncertain behavior of skin Social History Tobacco Use Types Packs/Day Years Used Date Smoking Tobacco: Never Smokeless Tobacco: Never Alcohol Use Standard Drinks/Week Comments Yes 0 (1 standard drink = 0.6 oz pur e alcohol) occasionally Sex and Gender Information Value Date Recorded Sex Assigned at Not on file Gender Identity Not on file Sexual Orientation Not on file documented as of this encounter Patient Instructions * Patient Instructions* Judy Simeon - 07/09/2017 2:40 PM EST Treatment and Wound Care Instructions Your treatment today: You have had a punch biopsy of your skin, which is a removal of tissue for examination under a microscope. There are stitches in the wound that will need to be removed in 6-7 days. If bleeding occurs, hold firm pressure against the wound for 15 minutes. If bleeding continues, calls the office or go to your local emergency room. Please allow 1-2 weeks for the biopsy results to return. Your physician or nurse will contact you with the results by phone or letter; follow-up will be discussed at that time. Wound Care Instructions: You will need to keep the dressing placed over the wound dry and intact for 24 hours. Afterwards, perform the following wound care daily until your stitches are removed: ?? Wash your hands before changing the dressing. ?? Remove the bandage and clean the area with mild soap and water, then gently pat the area dry. ?? Apply a small amount of Vaseline to the area, then cover the wound with a band-aid. Change your dressing daily until the wound is fully healed. ?? A small amount of yellow drainage is part of normal healing. You might notice some redness around the edge of the wound. This is normal. ?? Please contact the office you you notice any of the following signs of infection: increased tenderness, pain, drainage, or redness that becomes hot or hard around the wound. If you have further questions or concerns, please call the office at [phone]. If it is after 5PM, or a holiday or weekend, please call [phone] and ask for the General Dentist on-call. documented in this encounter Progress Notes * Leatha Raygoza - 07/09/2017 2:40 PM EST Images from the original note were not included. DERMATOLOGY - NEW PATIENT NOTE Date of service: 07/09/2017 Pancho Babb : 1965, 52 y.o. CC: Chief Complaint Patient presents with ??? Skin Lesion HPI: Pancho Babb is referred by Peña Turner with the following concerns: Patient is here for a skin spot on the left eyebrow present for many years, Patient states that thespot is asymptomatic. 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 spironolactone (ALDACTONE) 25 mg Tablet, Take 1 tablet by mouth 2 times daily., Disp: 180 tablet, Rfl: 3 ??? amLODIPine (NORVASC) 5 mg Tablet, 5 mg daily., Disp: , Rfl: ??? lisinopril (PRINIVIL;ZESTRIL) 20 mg Tablet, Take 20 mg by mouth daily., Disp: , Rfl: ??? aspirin 81 mg Tablet, Delayed Release (E.C.), Take 81 mg by mouth daily., Disp: , Rfl: No Known Allergies Review of Systems: - General: Feels well. - Skin: No other skin concerns. Examination: - Constitutional: Patient was alert, well-appearing and in no noticeable distress. - Skin: Skin examination of the face was normal with the exception of the findings listed below. Diagnosis/Skin findings/Assessment/Plan: 1. Favor Dermal Nevus - left superior eyebrow: 6 mm flesh-colored papule. I discussed this condition with the patient and explored therapeutic options. I discussed option for punch biopsy. Patient wanted to proceed. Procedure: Skin biopsy by punch technique. Location: left superior eyebrow Discussed indications for the procedure and expectations including risks and benefits. Verbal consent obtained. Skin prep with alcohol. Local anesthesia: 1% lidocaine with 1/100,000 epinephrine. A 6 mm punch biopsy to the level of the subcutis was performed. Wound closed with monofilament suture. There were no complications; the patient tolerated the procedure well. The wound was dressed. Post-procedure expectations (including discomfort management), wound care and activity restrictions were reviewed. Follow-up based on pathology results. Suture removal: 6-7 days RTC: PRN. Instructed to call if problems arise. The following photos were obtained with patient consent: Note initiated by: Aruna Butterfield CMA ? Judy Simeon, Clinical Scribe has performed the documentation for this encounter in the presenceof and acting as a scribe for Leatha Raygoza MD. I performed the above scribed service and agree with the accuracy of the documentation in this encounter. I performed the above scribed service and agree with the accuracy of the documentation in this encounter. Reviewed and signed by Leatha Raygoza MD Resident in Dermatology [facility] Patient seen and evaluated with staff rigger chief: Jer Nina MD Section of Dermatology [facility] * Jer Nina MD - 07/09/2017 2:40 PM EST Patient requests biopsy of probable dermal nevus of left brow. Discussed risks including but not limited to scar which may be more noticeable than lesion itself, and recurrence, pt wishes to proceed I directly supervised Dr. Leatha Raygoza during this office visit. Dr. Raygoza presented the historyand physical exam to me. I then saw and examined this patient with Dr. Raygoza. We reviewed the history and pertinent details and I confirmed the physical findings. I agree with the details of the history and physical exam as documented in Dr. Garnica note. JER NINA MD Staff Physician documented in this encounter Plan of Treatment Not on file documented as of this encounter Procedures Procedure Name Priority Date/Time Associated Diagnosis Comments SPECIMEN TO PATHOLOGY Routine 07/09/2017 3:43 PM EST Neoplasm of uncertain behavior of skin documented in this encounter Results * Specimen to Pathology (07/09/2017 3:43 PM EST) AP Specimen 07/09/2017 3:43 PM EST 07/09/2017 6:20 PM EST Narrative [facility] - 07/09/2017 6:20 PM EST Specimen requisition ordered. ??Separate Pathology report to follow Resulting Agency Comment Spec In Lab Jer Nina MD PATHOLOGY/CYTOLOGY ORDERABLES [facility] [place] [address] documented in this encounter Visit Diagnoses Diagnosis Neoplasm of uncertain behavior of skin documented in this encounter Care Teams Economic Analyst Relationship Specialty Start Date End Date Peña Turner DO [address] [place] [address] [address] [place] [address] PCP - General 05/13/10 07/21/21 documented as of this encounter
--- OUTSIDE RECORDS SUMMARY | 2024-06-12 14:16 | XMS_ITS | Encounter Summary ---
Author Organization [facility] Address [facility] [place] [address] Care Team Providers Care Gaggerman Name Role Phone Peña Turner DO Primary Care Provider Encounter Details Date Type Department Care Team (Late st Contact Info) Description 02/21/2019 2:30 PM EDT Office [place] [id number] Celso Raza MD [facility] [place] [address] Vitamin D deficiency; History of prediabetes; Dyslipidemia; Adrenal adenoma, unspecified laterality Social History Tobacco Use Types Packs/Day Years [...] Sign Reading Time Taken Comments Blood Pressure 130/69 02/21/2019 2:24 PM EDT Pulse 73 02/21/2019 2:24 PM EDT Temperature - - Respiratory Rate - - Oxygen Saturation 99% 02/21/2019 2:24 PM EDT Inhaled Oxygen Concentration - - Weight 99.8 kg (220 lb) 02/21/2019 2:24 PM EDT Height 177.8 cm (5' 10) 02/21/2019 2:24 PM EDT Body Mass Index 31.57 02/21/2019 2:24 PM EDT documented in this encounter Patient Instructions * Patient Instructions* Celso Raza MD - 02/21/2019 2:30 PM EDT Recent Results (from the past 24 hour(s)) Hemoglobin A1c Result Value Ref Range Hemoglobin A1C 5.2 4.3 - 5.6 % Est Avg Gluc 103 mg/dL Basic Metabolic Panel (non-fasting) Result Value Ref Range Glucose Lvl 114 65 - 199 mg/dL BUN 14 10 - 20 mg/dL Creatinine 0.90 0.80 - 1.50 mg/dL Sodium 142 135 - 145 mmol/L Potassium 4.1 3.5 - 5.0 mmol/L Chloride 107 98 - 107 mmol/L CO2 24 22 - 31 mmol/L Anion Gap 11 5 - 15 mmol/L Calcium 9.3 8.5 - 10.5 mg/dL eGFR 96 >=60 mL/min/1.73 m?? eGFR 112 >=60 mL/min/1.73 m?? Plan: - Recheck CT scan of abdomen in 2-5 yrs based on his symptom and BP control to follow the size of bilateral adrenal nodules. - If there is any distinct enlarging nodules then we may consider checking adrenal venous sampling for surgical intervention. If there is no changes in the adrenal nodularity bilaterally, then we will cont medical therapy including spironolactone 25-50 mg BID as an MR antagonist, especially if BP is higher. - Also checked Labs today for BMP, A1c, c-peptide, cortisol, ACTH and 25vitamin D. - As he is out of DM/preDM today, ok to try a lowered dose metforminER 1,000 mg daily (used to wgtcO3l 6.8% in Jun 2015-> 6.0-6.3% -> 5.2% today!). - Already doing his best on diet control and lost 22 lbs since 2016 and will try to do more exercise walking at least 20-30 mins daily. - To cont vitamin D vitamin-D 50,000 iu weekly (last vit D was low at 19; normal 30-100). So, pt should take as prescribed and will recheck lab in 6 mo. - Next lab test at next visit for A1c, CMP, lipids, and 25vitamin D. - RTC 6-12 mo or earlier if needed. Celso Raza MD, PhD, FACE, FACP documented in this encounter Progress Notes * Celso Raza MD - 02/21/2019 2:30 PM EDT Images from the original note were not included. ENDOCRINOLOGY FOLLOW-UP NOTE Patient Name: Aroldo Babb : 1965 PCP: Dr. Turner Date : 02/21/2019 Reason for follow-up: HTN with low potassium levels - improved on spironolactone, and stable bilateral adrenal nodules on CT scan 04/24/16 and 05/20/17 DM/prediabetes with insulin resistance - started on metforminER since Jul 2018 with better control History of Presenting Illness: This is a 53 y.o. male patient who initially presented to Endocrine clinic on 02/25/16 for low potassium, HTN and and bilateral adrenal nodules, seen by Dr. Ramírze in 2015 and was transferred under [facility] since 05/20/17. It is still unclear if B/L adrenal nodules are truly hyperfunctioning or not since ARR was borderline at 29 (normal <30) and his K & BP were under controlled with lisinopril 20 mg, spirolactone 25 mg qd/bid, and norvasc 5 mg. We would avoid adrenal venous sampling, continue current BP regimen including mineralocorticoid receptor antagonist (spironolactone) which will help raise K levels. Would do AVS only in future if has severe HTN difficult to control with spironolactone and HTN meds. F/U adrenal CT after 1 year on 05/20/17 showed no changes Given mild HTN, normal K with lisinopril and risks of B/L adrenal venous sampling, ok to continue BP management as above. Will wait to do CT scan 2-5 yrs. Regarding T2DM, he is on diet control and then added metforminER up to 1,500 mg/day with much better A1c (down from 6.8 to 5.9-6.2% range to 5.2% today!) with wt down from 248 to 238, 233 lbs and nhi201 lbs (total wt loss 22 lbs since 2015). Also, vitamin D deficiency and started on vitD 50,000 iu weekly since Jul 2018, so we will recheck lab today for A1c, c-peptide, 25vitD and BMP. Background history: Aroldo was diagnosed with HTN [...] ARR. This was done at OSH 03/17/2016 Gordon- 38 Renin- 1.3 ARR- 29 (This is [...] indicating this is a benign adenoma. ROS: (+) for as per HPI (-) for Constitutional: No tiredness, +recent weight loss of 8 lbs from 248 to 240 lbs and then 233 lbs on diet control with better A1c (down from 6.8 to 5.9-6.1%), no heat or cold intolerance Endocrine: No thyroid problems. No abnormal sweating or flushing. No galactorrhea or breast tenderness. Normal sexual desire. Integument: No excessive hair growth, balding, acne or oily skin. No ulcerations. No easily bruising. Neurological: No headache or weakness. No seizure, fainting or dizziness Eyes: No recent vision changes ENT: No dysphagia, dental issues Cardiovascular: No chest pain or palpitations Respiratory: No cough, wheezing, shortness of breath GI: Normal appetite. No nausea, vomiting, diarrhea, constipation : No frequent urinary tract infections or polyuria Musculoskeletal: No joint aches, muscle pain. No back pain Psychiatric: No depression, anxiety Past Medical History: DM type 2 - A1C 6.8, on diet control HTN Obesity (BMI 34-35) Intradural schwanomma s/p surgery Current Medications: ??? ergocalciferol (VITAMIN D) 50,000 unit Capsule ??? metFORMIN (FORTAMET) 500 mg Tablet Extended Rel 24 hr ??? spironolactone (ALDACTONE) 25 mg Tablet ??? amLODIPine (NORVASC) 5 mg Tablet ??? lisinopril (PRINIVIL;ZESTRIL) 20 mg Tablet ??? 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 Dad- DMT2 at age 80 yrs No FH adrenal, thyroid, parathyroid problems, no h/o early HTN Allergies: No Known Allergies Vitals Most Recent Vitals: 02/21/19 1424 BP: 130/69 Pulse: 73 SpO2: 99% Physical Exam: BP 130/69 Pulse 73 Ht 177.8 cm (5' 10) Wt 99.8 kg (220 lb) SpO2 99% BMI 31.57 kg/m?? Appearance: Patient is very pleasant white female, mildly obese, clinically euthyroid, not in acutedistress and not Cushingoid Skin - normal in texture and temperature, no acanthosis nigricans around the nape of the neck, no abnormal striae or ecchymosis. HEENT - PERRLA, EOMI, no lid lag or exophthalmos. Fundoscopic: no retinopathy, no AV nicking or copper wiring Neck - supple, no goiter or nodule, no lymphadenopathy, no carotid bruit Lungs - Normal chest expansion, no crackles or wheeze Heart - regular rhythm, normal apical impulse, normal S1, S2 and no murmur Abdomen - soft, non-tender, ND Extremities - no pitting edema, no proximal muscle weakness, reflexes were normal Feet - no foot ulcer, foot sensation was intact Pertinent Laboratory Findings: Lab 11/19/15 12/05/15 01/01/16 11/05/1705/2018 Na 113 145 143 K 3.2 3.3 3.4 4.3 3.9 Cl 104 102 Bicarb 28 27 AG 10 BUN 21 Cr 1.15 0.96 1.02 1.05 EGFR >60 Ca 9.0 9.2 Glucose 111 (fasting but had coffee with cream and honey) A1c 6.8%(H) 6.2% (H) 6.3% (H) Results for LYRIC AROLDO Edwards ( ) as of 04/24/2016 Ref. Range [...] Follow-up adrenal CT after 1 year on 11/30/17 showed no changes EXAMINATION: ??CT ABDOMEN WWO [...] ??Stable mild diffuse hepatic steatosis with hepatomegaly. Recent Results (from the past 72 hour(s)) Vitamin D, 25-Hydroxy Result Value Ref Range 25-OH Vit D Total 56 30 - 100 ng/mL C-peptide Result Value Ref Range C-Peptide 5.8 (H) 0.8 - 5.2 ng/mL Hemoglobin A1c Result Value Ref Range Hemoglobin A1C 5.2 4.3 - 5.6 % Est Avg Gluc 103 mg/dL Basic Metabolic Panel (non-fasting) Result Value Ref Range Glucose Lvl 114 65 - 199 mg/dL BUN 14 10 - 20 mg/dL Creatinine 0.90 0.80 - 1.50 mg/dL Sodium 142 135 - 145 mmol/L Potassium 4.1 3.5 - 5.0 mmol/L Chloride 107 98 - 107 mmol/L CO2 24 22 - 31 mmol/L Anion Gap 11 5 - 15 mmol/L Calcium 9.3 8.5 - 10.5 mg/dL eGFR 96 >=60 mL/min/1.73 m?? eGFR 112 >=60 mL/min/1.73 m?? Lipid Panel Result Value Ref Range Chol, Total 160 mg/dL Triglycerides 80 mg/dL HDL 42 mg/dL LDL Cholesterol 102 mg/dL Chol/HDL Ratio 3.8 ratio Lipid Interpretation See Note Addendum: lab after the visit showed better vitamin D at 56 (was low at 19 in Jul), c-peptide insulin level of 5.8 (was 8.2) with normal A1c 5.2% (down from 6.0-6.8%) after taking metformin and vitamin D 50,000 iu weekly supplement. Other results were all ok. Ok to continue all current treatment and recheck lab as planned next year. Assessment: This is a 53 y.o. male patient with h/o HTN and hypokalemia in the past associated with elevated aldosterone and low renin (borderline high ARR at 29, normal <30 after he was off lisinopril for 2 weeks) and CT scan showed bilateral small adrenal nodules of 10-16 mm He also has some features of metabolic syndrome given diet-controlled T2DM, HTN, BMI 34-35=> 31 now which is excellent on metforminER 1,000-1500 mg/day with healtheir diet plus more active physically. His HTN with h/o low K is likely due to endocrine cause I.e. primary hyper-aldosteronism (elevated aldosterone 38 with renin 1.3, high ARR 29) due to bilateral adrenal nodular hyperplasia and r/oCushings syndrome with normal ACTH 21 with cortisol 13 in Feb 2016. Pt had a period of hypokalemia which has since resolved with discontinuation of HCTZ. His K levels were entirely normal at 3.7-4.1 with good [...] adrenal venous sampling per endocrine society protocol. Plan: - Recheck CT scan of abdomen in 2-5 yrs based on his symptom and BP control to follow the size of bilateral adrenal nodules. - If there is any distinct enlarging nodules then we may consider checking adrenal venous sampling for surgical intervention. If there is no changes in the adrenal nodularity bilaterally, then we will cont medical therapy including spironolactone 25-50 mg BID as an MR antagonist, especially if BP is higher. - Also checked Labs today for BMP, A1c, c-peptide, and 25vitamin D. - As he is out of DM/preDM today, ok to try a lowered dose metforminER 1,000 mg daily (used to datuU5s 6.8% in Jun 2015-> 6.0-6.3% -> 5.2% today!). - Already doing his best on diet control and lost 22 lbs since 2016 and will try to do more exercise walking at least 20-30 mins daily. - To cont vitamin D vitamin-D 50,000 iu weekly (last vit D was low at 19; normal 30-100). So, pt should take as prescribed and will recheck lab in 6 mo. - Next lab test at next visit for A1c, CMP, lipids, and 25vitamin D. - RTC 6-12 mo or earlier if needed. Celso Raza MD, PhD, FACE, FACP documented in this encounter Plan of Treatment Not on file documented as of this encounter Visit Diagnoses Diagnosis Vitamin D deficiency Unspecified vitamin D deficiency History of prediabetes Dyslipidemia Other and unspecified hyperlipidemia Adrenal adenoma, unspecified laterality documented in this encounter Care Teams Gaggerman Relationship Specialty Start Date End Date Peña Turner DO [address] [place] [address] [address] [facility] [address] [place] [address] PCP - General 05/13/10 07/21/21 documented as of this encounter
--- OUTSIDE RECORDS SUMMARY | 2024-06-12 14:16 | XMS_ITS | Encounter Summary ---
Author Organization [facility] Address [facility] [place] [address] Care Team Providers Care Irrigation Manager Name Role Phone Peña Turner DO Primary Care Provider [phone] Reason for Referral * Diagnostic Test (Routine) - Closed Specialty Diagnoses / Procedures Referred By Contac t Referred To Contact Radiology Diagnoses Adrenal adenoma, unspecified laterality Procedures CT Abdomen wwo Contrast Celso Raza MD [facility] [place] [address] [facility] [place] [address] Referral ID Status Reason Start Date Expiration Date V isits Requested Visits Authorized [id number] Closed Specialty Service Requested 05/20/2017 08/18/2017 1 1 Reason for Visit * Diagnostic Test (Routine) - Closed Specialty Diagnoses / Procedures Referred By Contac t Referred To Contact Radiology Diagnoses Adrenal adenoma, unspecified laterality Procedures CT Abdomen wwo Contrast Celso Raza MD [facility] [place] [address] [facility] [place] [address] Referral ID Status Reason Start Date Expiration Date V isits Requested Visits Authorized [id number] Closed Specialty Service Requested 05/20/2017 08/18/2017 1 1 Encounter Details Date Type Department Care Team (Latest Contact Info) Description 05/20/2017 4:31 PM EST - 05/20/2017 11:59 PM EST Hospital Encounter CT [facility] [place] [address] Celso Raza MD [facility] [place] [address] Adrenal adenoma, unspecified laterality Discharge Disposition: Home Social History Tobacco Use [...] Take 20 mg by mouth daily. amLODIPine (NORVASC) 5 mg Tablet 5 mg daily. 02/02/2017 02/16/2021 aspirin 81 mg Tablet, Delayed Release (E.C.) Take 81 mg by mouth daily. 03/26/2021 documented as of this encounter Plan of Treatment Not on file documented as of this encounter Procedures Procedure Name Priority Date/Time Associated Diagnosis Comments CT ABDOMEN WWO CONTRAST Routine 05/20/2017 5:42 PM EST Adrenal adenoma, unspecified laterality documented in this encounter Results * CT Abdomen wwo Contrast (05/20/2017 5:42 PM EST) Anatomical Region Laterality Modality Abdomen Computed Tomogra phy Impressions 05/21/2017 8:35 AM EST 1. ??Stable bilateral adrenal gland adenomas. These are benign, and do not need additional workup and/or follow-up. 2. ??Stable mild diffuse hepatic steatosis with hepatomegaly. Narrative 05/21/2017 8:35 AM EST EXAMINATION: ??CT ABDOMEN WWO CONTRAST CLINICAL HISTORY: ??follow up bilateral adrenal adenomas with last CT here on 04/24/16 TECHNIQUE: Helical CT of the abdomen was performed prior to and following the intravenous administration of contrast. ??120 cc of Omnipaque 350 was given. Oral contrast was administered. COMPARISON: ??04/24/2016 FINDINGS: Lower chest: Normal. Liver: As noted previously, mild diffuse hepatic steatosis with hepatomegaly, measuring 22.5 cm in cranial to caudal dimension. Bile ducts: Nondilated. Gallbladder: No calcified gallstones. [...] wall: Normal. Osseous structures: No suspicious lesions. Procedure Note Aniket Medina MD - 05/21/2017 EXAMINATION: CT ABDOMEN WWO CONTRAST CLINICAL HISTORY: follow up bilateral adrenal adenomas with last CT hereon 04/24/16 TECHNIQUE: Helical CT of the abdomen was performed prior to and followingthe intravenous administration of contrast. 120 cc of Omnipaque 350 wasgiven. Oral contrast was administered. COMPARISON: 04/24/2016 FINDINGS: Lower chest: Normal. Liver: As noted previously, mild diffuse hepatic steatosis withhepatomegaly, measuring 22.5 cm in cranial to caudal dimension. Bile ducts: Nondilated. Gallbladder: No calcified gallstones. Normal caliber wall. Pancreas: Normal attenuation without ductal dilatation. Spleen: Normal. Adrenal: The adrenal glands are stable. As noted previously, 2subcentimeter RIGHT adrenal gland nodules are noted and a solitary subcentimeter LEFTadrenal gland nodule is noted. Previously, these were shown to be compatible withbenign adrenal gland adenomas with a 95% confidence level, as per an adrenalgland protocol. They are stable. Kidneys: Normal. No renal collecting system obstruction bilaterally. A 5mm cortical cyst is seen in the lower pole of the RIGHT kidney. Vasculature: No aneurysm. Lymph nodes: No enlarged lymph nodes. Bowel: Nondilated, no wall thickening. Peritoneum and mesentery: No ascites, free air, or loculated fluidcollection. No mesenteric inflammation. Abdominal wall: Normal. Osseous structures: No suspicious lesions. IMPRESSION 1. Stable bilateral adrenal gland adenomas. These are benign, and do notneed additional workup and/or follow-up. 2. Stable mild diffuse hepatic steatosis with hepatomegaly. 8:35 AM Celso Raza MD IMG CT ORDERABLES documented in this encounter Visit Diagnoses Diagnosis Adrenal adenoma, unspecified laterality documented in this encounter Administered Medications Inactive Administered Medications - up to 3 most recent administrations Medication Order MAR Action Action Date Dose Rate Site iohexol (OMNIPAQUE) 350 mg/mL solution 0-200 mL 0-200 mL, Intravenous, ONCE PRN, 1 dose, Starting on Vicky 05/20/17 at 1742, Until Vicky 05/20/17 at 1743, Per Protocol, Warning Vesicant/Irritant Medication , Radiology Contrast, Routine Given 05/20/2017 5:43 PM EST 120 mLs documented in this encounter Care Teams Irrigation Manager Relationship Specialty Start Date End Date Peña Turner DO [address] [place] [address] PCP - General 05/13/10 07/21/21 documented as of this encounter
--- OUTSIDE RECORDS SUMMARY | 2024-06-12 14:16 | XMS_ITS | Encounter Summary ---
Author Organization [facility] [place] [address] Care Team Providers Care Import Export Agent Name Role Phone Peña Turner DO Primary Care Provider [phone] Encounter Details Date Type Department Care Team (Latest Contact Info) Description 02/21/2019 1:30 PM EDT Laboratory Appointment Lab [address] [place] [id number] Controlled type 2 diabetes mellitus without complication, without long-term current use of insulin; Adrenal adenoma, unspecified laterality; Hyperaldosteronism; 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; Vitamin D deficiency Social History Tobacco Use Types Packs/Day Years [...] Procedure Name Priority Date/Time Associated Diagnosis Comments HC VENIPUNCTURE Routine 02/21/2019 1:05 PM EDT Controlled type 2 diabetes mellitus without complication, without long-term current use of insulin Adrenal adenoma, unspecified laterality Hyperaldosteronism 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 Vitamin D deficiency HC C PEPTIDE Routine 02/21/2019 1:05 PM EDT Controlled type 2 diabetes mellitus without complication, without long-term current use of insulin HC HEMOGLOBIN A1C Routine 02/21/2019 1:0 5 PM EDT Controlled type 2 diabetes mellitus without complication, without long-term current use of insulin LIPID PANEL (REFLEX DIRECT LDL) Routine 02/21/2019 1:05 PM EDT BASIC METABOLIC PANEL Routine 02/21/2019 1:05 PM EDT Controlled type 2 diabetes mellitus without complication, without long-term current use of insulin Adrenal adenoma, unspecified laterality Hyperaldosteronism 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 Vitamin D deficiency documented in this encounter Results * Lipid Panel (02/21/2019 1:05 PM EDT) Cholesterol, Total 160 mg/dL [facility] Comment: Lower Risk: <200 mg/dL Average Risk: 200-239 mg/dL Higher Risk: >xa=636 mg/dL Triglyceride 80 mg/dL [facility] Comment: Average Risk/Lower Risk: <150 mg/dL Borderline High Risk: 150-199 mg/dL High Risk: 200-499 mg/dL Very High Risk: >rt=717 mg/dL HDL Cholesterol 42 mg/dL [facility] Comment: Males: ?? Higher Risk: <40 mg/dL Females: ?? HIgher Risk: <50 mg/dL LDL Cholesterol 102 mg/dL [facility] Comment: Lowest Risk: <100 mg/dL Lower Risk: 100-129 mg/dL Borderline High Risk: 130-159 mg/dL High Risk: 160-189 mg/dL Very High Risk: >df=305 mg/dL Cholesterol/HDL Ratio 3.8 ratio [facility] Lipid Interpretation See Note [facility] Comment: Lipid management should be guided by a patient? s ASCVD risk, goals and preferences. ACC/AHA Guidelines recommend high intensity statin if clinical ASCVD or LDL greater than or equal to 190 mg/dL. http://Propagenixurl.com/AVG-ZSZ-Eyjhbujye Adults aged 40-75 with LDL 70-189 mg/dL should have their 10 year ASCVD risk estimated with the ACC/AHA ASCVD risk auto job estimator http://tools.acc.org/NYCOE-Wkpo-Dkztptumj/ Statin should be discussed if risk greater [...] Lab Celso Raza MD CHEMISTRY ORDERAB LES [facility] [place] [address] * Basic Metabolic Panel (non-fasting) (02/21/2019 1:05 PM EDT) Glucose 114 65 - 199 mg/dL [facility] Comment:Diabetes: >=200 mg/d L plus symptoms Blood Urea Nitrogen 14 10 - 20 mg/dL [facility] Creatinine 0.90 0.80 - 1.50 mg/dL [facility] Sodium 142 135 - 145 mmol/L [facility] Potassium 4.1 3.5 - 5.0 mmol/L [facility] Comment: Please note: ??Patients with WBC >100,000 may have falsely elevated Potassium levels. ??For accurate Potassium quantification in these patients send serum separator tube (gold top) for subsequent determinations. ??Contact the Clinical Chemistry Laboratory if there are any questions. Chloride 107 98 - 107 mmol/L [facility] Carbon Dioxide 24 22 - 31 mmol/L [facility] Anion Gap 11 5 - 15 mmol/L [facility] Calcium 9.3 8.5 - 10.5 mg/dL [facility] Est Glomerular Filtration Rate 96 >=60 mL/min/1. 73 m?? [facility] Comment: The eGFR was calculated using the CKD-EPI equation. As with all creatinine based estimates of kidney function, eGFR values calculated with the CKD-EPI equation are not accurate in patients with acute kidney failure, extremes of body mass or the acutely ill. http://Matchfund/DHnkf eGFR 112 >=60 mL/min/1. 73 m?? [facility] Comment: The eGFR was calculated using the CKD-EPI equation. As with all creatinine based estimates of kidney function, eGFR values calculated with the CKD-EPI equation are not accurate in patients with acute kidney failure, extremes of body mass or the acutely ill. http://Matchfund/DHMCnkf Blood specimen (specimen) 02/21/2019 1:05 PM EDT 02/21/2019 1:15 PM EDT Narrative Resulting Agency Comment Spec In Lab Celso Raza MD CHEMISTRY ORDERAB LES [facility] [place] [address] * Hemoglobin A1c (02/21/2019 1:05 PM EDT) Hemoglobin A1c 5.2 4.3 - 5.6 % [facility] Comment: Reference Range: 4.3 - [...] Mellitus, Diabetes Care 2013; 36: Suppl. 1, A24-88 Estimated Average Glucose 103 mg/dL [facility] Comment: eAG equivalents for HbA1c [...] into estimated average glucose values. ??Diabetes Care 2008:31(8):8247-1902. Blood specimen (specimen) 02/21/2019 1:05 PM EDT 02/21/2019 1:15 PM EDT Narrative Resulting Agency Comment Spec In Lab Celso Raza MD CHEMISTRY ORDERAB LES Performing Organization Address [facility] de Phone Number [facility] [place] [address] * (ABNORMAL) C-peptide (02/21/2019 1:05 PM EDT) [facility] C-Peptide 5.8(H) 0.8 - 5.2 ng/mL [facility] Blood specimen (specimen) 02/21/2019 1:05 PM EDT 02/21/2019 1:15 PM EDT Narrative Resulting Agency Comment Spec In Lab Celso Raza MD CHEMISTRY ORDERAB LES Performing Organization Address [facility] de Phone Number [facility] [place] [address] * Vitamin D, 25-Hydroxy (02/21/2019 1:05 PM EDT) [facility] Vitamin D Total 25 OH 56 30 - 100 ng/mL [facility] Comment: Deficient <10 ng/mL Insufficient 10 to 29 ng/mL Sufficient 30 to 100 ng/mL Potential Intoxication >100 ng/mL According to the US National Osteoporosis Foundation, Vitamin D concentrations >30 ng/mL are sufficient to protect bone health. ??The National Kidney Foundation has similarly stated that patients with Vitamin D concentrations <30ng/mL should be considered to be insufficient or deficient. http://Matchfund/nkf-guidelines http://Matchfund/nejm-VitD The IDS iSYS Vitamin D Immunoassay detects both 25-OH Vitamin D2 and 25-OH Vitamin D3, but only a total Vitamin D concentration is reported. Blood specimen (specimen) 02/21/2019 1:05 PM EDT 02/22/2019 7:54 AM EDT Narrative Resulting Agency Comment Spec In Lab Celso Rzaa MD CHEMISTRY ORDERAB LES Performing Organization Address City/State/[facility] de Phone Number [facility] [place] [address] documented in this encounter Visit Diagnoses Diagnosis Controlled type 2 diabetes mellitus without complication, without long-term current use of insulin Adrenal adenoma, unspecified laterality Hyperaldosteronism Hyperaldosteronism, unspecified 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 Hyperaldosteronism, unspecified Vitamin D deficiency Unspecified vitamin D deficiency documented in this encounter Care Teams Import Export Agent Relationship Specialty Start Date End Date Peña Turner DO [address] [place] [address] [address] PCP - General 05/13/10 07/21/21 documented as of this encounter
--- OUTSIDE RECORDS SUMMARY | 2024-06-12 14:16 | XMS_ITS | Encounter Summary ---
Author Organization [facility] Address [facility] [place] [address] Care Team Providers Care Shape Carver Name Role Phone JohnnyPeña moreira Primary Care Provider Encounter Details Date Type Department Care Team (Late st Contact Info) Description 08/24/[address] [facility] [place] [address] Teresa Manley LPN Social History Tobacco Use Types Packs/Day Years [...] encounter Miscellaneous Notes * Telephone Encounter - Teresa Manley LPN - 08/27/2018 9:18 AM EST Called patient to inform him of low Vitamin D3 level, but he states he has already obtained the prescription at [place] and has been taking it as directed. Pancho Babb - 08/12/18 - low vitD Celso Raza MD Sent: WedAugust 15, 2018 ??7:22 PM To: Pacheco Chopra Endocrinology Nurse ?? Message Lebron Sorensen, please tell pt that the pending lab for vitamin D at recent visit was low at 19 (normal 30-100). So, pt should take vitamin-D 50,000 iu weekly as prescribed. I already mailed a lab letter to him yesterday and this vitD result came afterward. Thanks, Celso ----- Message ----- From: [facility], [facility] Sent: 08/12/2018 ?? 8:16 PM To: Celso Raza MD documented in this encounter Plan of Treatment Not on file documented as of this encounter Visit Diagnoses Not on filedocumented in this encounter Care Teams Shape Carver Relationship Specialty Start Date End Date Peña Turner DO [address] [place] [address] [address] PCP - General 05/13/10 07/21/21 documented as of this encounter
--- OUTSIDE RECORDS SUMMARY | 2024-06-12 14:16 | XMS_ITS | Encounter Summary ---
Author Organization [facility] [place] [address] Care Team Providers Care Clay Processing Labourer Name Role Phone Peña Turner DO Primary Care Provider [phone] Encounter Details Date Type Department Care Team (Late st Contact Info) Description 02/14/2021 Notes [place] [address] Vipul Tucker Social History Tobacco Use Types Packs/Day Years Used Date Smoking Tobacco: Never Smokeless Tobacco: Never Alcohol Use Standard Drinks/Week Comments Yes 0 (1 standard drink = 0.6 oz pur e alcohol) occasionally Sex and Gender Information Value Date Recorded Sex Assigned at Not on file Gender Identity Not on file Sexual Orientation Not on file documented as of this encounter Progress Notes * Vipul Tucker - 02/14/2021 4:55 PM EDT Discharge Transportation confirmed: Spoke with Elizabeth from [facility] who confirmed a cross country truck driver provided by transportation analyst, [facility] will arrive to pick patient up at discharge 02/15 from the main entrance at 4:00pm en route to to the patient'shome address. Bedside nurse notified via eDH chat. documented in this encounter Plan of Treatment Not on file documented as of this encounter Visit Diagnoses Not on filedocumented in this encounter Care Teams Clay Processing Labourer Relationship Specialty Start Date End Date Peña Turner DO [address] [place], [place] [address] PCP - General 05/13/10 07/21/21 documented as of this encounter
--- OUTSIDE RECORDS SUMMARY | 2024-06-12 14:16 | XMS_ITS | Encounter Summary ---
Author Organization [facility] [place] [address] Care Team Providers Care Wireworker Name Role Phone Peña Turner DO Primary Care Provider [phone] Reason for Visit * Diagnostic Test (Routine) - Closed Specialty Diagnoses / Procedures Referred By Contac t Referred To Contact Radiology Diagnoses Back pain, unspecified back location, unspecified back pain laterality, unspecified chronicity Schwannoma Procedures MRI Lumbar Spine wwo Contrast Michael Reagan MD [address] [place] [address] [facility] [place] [address] Referral ID Status Reason Start Date Expiration Date V isits Requested Visits Authorized [id number] Closed Specialty Service Requested 10/19/2018 01/17/2019 1 1 Encounter Details Date Type Department Care Team (Latest Contact Info) Description 11/03/2018 3:58 PM EDT - 11/03/2018 11:59 PM EDT Hospital [place] [phone] Michael Reagan MD Discharge Disposition: Home Social History Tobacco Use [...] Tablet Take 20 mg by mouth daily. ergocalciferol (VITAMIN D) 50,000 unit Capsule Take 1 capsule by mouth once a week. 13 capsule 4 08/15/2018 08/25/2019 metFORMIN (FORTAMET) 500 mg Tablet Extended Rel 24 hr Take 1-3 tablets by mouth daily. Generic metforminER 1 tab daily for 2-7 days then 2 tab/day and then 3 tablets daily as tolerated 270 tablet 4 08/12/2018 02/21/2019 spironolactone (ALDACTONE) 25 mg Tablet TAKE ONE [...] Date/Time Associated Diagnosis Comments MRI LUMBAR SPINE WITH/WO CONTRAST Routine 11/03/2018 5:43 PM EDT Back pain, unspecified back location, unspecified back pain laterality, unspecified chronicity Schwannoma documented in this encounter Visit Diagnoses Not on filedocumented in this encounter Administered Medications Inactive Administered Medications - up to 3 most recent administrations Medication Order MAR Action Action Date Dose Rate Site gadoterate meglumine (DOTAREM) 0.5 mmol/mL (376.9 mg/mL) injection 0-100 mL 0-100 mL, Intravenous, ONCE PRN, 1 dose, Starting on Vicky 11/03/18 at 1648, Until Vicky 11/03/18 at 1730, Per Protocol, Radiology Contrast, Routine Given 11/03/2018 5:30 PM EDT 20 mLs documented in this encounter Care Teams Wireworker Relationship Specialty Start Date End Date Peña Turner DO [address] [place] [address] PCP - General 05/13/10 07/21/21 documented as of this encounter
--- OUTSIDE RECORDS SUMMARY | 2024-06-12 14:16 | XMS_ITS | Encounter Summary ---
Author Organization [facility] Address [facility] [place] [address] Care Team Providers Care Desktop Administrator Name Role Phone JohnnyPeña moreira Primary Care Provider [phone] Encounter Details Date Type Department Care Team (Late st Contact Info) Description 06/24/[address] [facility] [place] [address] Shira Boudreaux LPN Social History Tobacco Use Types Packs/Day [...] encounter Miscellaneous Notes * Telephone Encounter - Shira Boudreaux LPN - 06/24/2017 3:17 PM EST Pancho Babb - 06/24/17 - K << Less Detail ?? K ?? Celso Raza MD ?? Sent: [facility] June 24, 2017 ??1:50 PM ?? To: Pacheco Chopra Endocrinology Nurse ?? Message ?? Lebron Silva, please tell pt that outside lab showed normal K at 3.7, same as 05/20/17 (normal 3.5-5.0). So, pt should take the same dose of spironolactone as prescribed. Will see him again with qd labon 11/09/16 as scheduled. Thanks, Celso ? ----- Message ----- Called patient at which time above message was read to him. Patient agrees with plan of care. documented in this encounter Plan of Treatment Not on file documented as of this encounter Visit Diagnoses Not on filedocumented in this encounter Care Teams Desktop Administrator Relationship Specialty Start Date End Date Peña Turner DO [address] [place] [address] PCP - General 05/13/10 07/21/21 documented as of this encounter
--- OUTSIDE RECORDS SUMMARY | 2024-06-12 14:16 | XMS_ITS | Encounter Summary ---
Author Organization [facility] Address [facility] [place] [address] Care Team Providers Care Baccarat Dealer Name Role Phone Peña Turner DO Primary Care Provider [phone] Encounter Details Date Type Department Care Team (Late st Contact Info) Description 02/07/2021 Orders [place] [address] Nahid Shah MD [facility] DR GA[place] [address] Gallstone pancreatitis Social History Tobacco Use Types [...] Diagnoses Orde r Schedule ENDOSCOPY CASE REQUEST: ERCP Procedures Routine Gallstone pancreatitis Ordered: 02/07/2021 documented as of this encounter Visit Diagnoses Diagnosis Gallstone pancreatitis Acute pancreatitis documented in this encounter Care Teams Baccarat Dealer Relationship Specialty Start Date End Date Peña Turner DO [address] [place], [place] [id number] PCP - General 05/13/10 07/21/21 documented as of this encounter
--- OUTSIDE RECORDS SUMMARY | 2024-06-12 14:16 | XMS_ITS | Encounter Summary ---
[place] [address] Care Team Providers Care Litigation Examiner Name Role Phone Peña Turner DO Primary Care Provider [phone] Reason for Referral * Diagnostic Test (Routine) - Closed Specialty Diagnoses / Procedures Referred By Contac t Referred To Contact Radiology Diagnoses Back pain, unspecified back location, unspecified back pain laterality, unspecified chronicity Schwannoma Procedures MRI Lumbar Spine wwo Contrast Michael Reagan MD [address] [place] [address] [place] [address] Referral ID Status Reason Start Date Expiration Date V isits Requested Visits Authorized [id number] Closed Specialty Service Requested 10/19/2018 01/17/2019 1 1 Reason for Visit * Diagnostic Test (Routine) - Closed Specialty Diagnoses / Procedures Referred By Contac t Referred To Contact Radiology Diagnoses Back pain, unspecified back location, unspecified back pain laterality, unspecified chronicity Schwannoma Procedures MRI Lumbar Spine wwo Contrast Michael Reagan MD [address] [place] [address] [facility] [place] [address] Referral ID Status Reason Start Date Expiration Date V isits Requested Visits Authorized [id number] Closed Specialty Service Requested 10/19/2018 01/17/2019 1 1 Encounter Details Date Type Department Care Team (Latest Contact Info) Description 11/03/2018 3:55 PM EDT - 11/03/2018 3:57 PM EDT Hospital [place] [address] Michael Reagan MD Back pain, unspecified back location, unspecified back pain laterality, unspecified chronicity; Schwannoma Discharge Disposition: Home Social History Tobacco Use [...] daily. 03/26/2021 documented as of this encounter Progress Notes * Shefali Rankin RN - 10/31/2018 9:10 AM EDT MRI PRE-SEDATION ASSESSMENT NOTE NAME: Pancho Babb AGE: 53 y.o. : 1965 [address] [facility] [address] Male [phone] (home) [phone] (work) Telephone Information: Peña Turner, No primary care provider on file. No Known Allergies Date/Time of call: October 31, 2018/8:24 AM/ PREVIOUS MRI SCAN? SCHEDULED SCAN: MRI LUMBAR SPINE WITH/WO CONTRAST [[id number]] : 40 minutes SUBJECTIVE: Claustrophobic CAN YOU LAY FLAT? Yes AIRWAY ISSUES? No DO YOU HAVE ANY INVOLUNTARY MOVEMENTS? No DO YOU HAVE ANY PAIN? No DO YOU TAKE PAIN MED ON A DAILY BASIS? No ASSESSMENT: Pt appropriate for PO sedation PLAN: Valium 5-10 mg PO ordered ( [facility] [place] You must have a funeral limousine driver present when you check in. This patient has been informed that they require a funeral limousine driver to drive them home after this procedure. In the absence of a funeral limousine driver, IR will not beable to sedate for your scan. Pt verbalized understanding of these instructions during the pre-procedure education via phone. Yes Name of funeral limousine driver: Phone number: PRIOR SCAN DATE/S SEDATION TYPE SUCCESSFUL 07/13/14 MRI L Spine wo Valium 5 mg P x 2 No. Per Tech: Patient very claustrophobic; needs IV sedatenext time. Scan was very difficult for patient 11/26/15 MRI Spine Valium 5 mg PO x 2 pt did great 11/18/15 MRI L-spine w/wo Valium 10 mg PO ?? 11/04/18 MRI Lumbar Spine ??Valium 5 mg PO x2 ??Yes ? Revised 11/16/17 documented in this encounter Plan of Treatment Not on file documented as of this encounter Procedures Procedure Name Priority Date/Time Associated Diagnosis Comments MRI LUMBAR SPINE WITH/WO CONTRAST Routine 11/03/2018 5:43 PM EDT Back pain, unspecified back location, unspecified back pain laterality, unspecified chronicity Schwannoma documented in this encounter Results * MRI Lumbar Spine wwo Contrast (11/03/2018 5:43 PM EDT) Anatomical Region Laterality Modality L-spine Magnetic Resonan ce Impressions 11/04/2018 9:11 AM EDT No evidence of residual or recurrent neoplasm. Comment: The Following Findings Are So Common In People Without Low Back Pain That While We Report Their Presence, They Must Be Interpreted With Caution And In Context Of The Clinical Situation (Reference- Sandik Et Al, Spine 2001). Findings: (Prevalence In Patients Without Low Back Pain), Disc Degeneration (Decreased T2 Signal, Height Loss, Bulge) (91%), Disc T2-Signal Loss (83%), Disc Height Loss (56%), Disc Bulge (64%), Disc Protrusion (32%), Annular Fissure (38%). Thank you for letting us participate in the care of this patient. For questions regarding this report, please contact the number below. ? Narrative 11/04/2018 9:11 AM EDT EXAMINATION: MRI LUMBAR SPINE WWO CONTRAST CLINICAL HISTORY: 2 year follow up, Evaluation of tumor resection (November 2018) OUTSIDE ORDER IN SCANNED DOCS TECHNIQUE: MRI of the lumbar spine was performed before and after the intravenous administration of 20cc Dotarem. COMPARISON: MRI 11/17/2016 FINDINGS: Alignment is normal. Similar degrees of endplate marrow fatty change. The conus is normal signal and terminates at L1. No evidence of residual or recurrent neoplasm. Central disc protrusion at T12-L1 without significant stenosis. Disc bulge and endplate proliferative change and facet arthropathy contributes to mild to moderate bilateral foraminal stenosis at L4-5. Procedure Note Viji Stewart MD - 11/04/2018 EXAMINATION: MRI LUMBAR SPINE WWO CONTRAST CLINICAL HISTORY: 2 year follow up, Evaluation of tumor resection (November2018) OUTSIDE ORDER IN SCANNED DOCS TECHNIQUE: MRI of the lumbar spine was performed before and after the intravenous administration of 20cc Dotarem. COMPARISON: MRI 11/17/2016 FINDINGS: Alignment is normal. Similar degrees of endplate marrow fatty change. Theconus is normal signal and terminates at L1. No evidence of residual orrecurrent neoplasm. Central disc protrusion at T12-L1 without significant stenosis.Disc bulge and endplate proliferative change and facet arthropathy contributesto mild to moderate bilateral foraminal stenosis at L4-5. IMPRESSION No evidence of residual or recurrent neoplasm. Comment: The Following Findings Are So Common In People Without Low BackPain That While We Report Their Presence, They Must Be Interpreted With CautionAnd In Context Of The Clinical Situation (Reference- Ange Et Al, [id number]). Findings: (Prevalence In Patients Without Low Back Pain), DiscDegeneration (Decreased T2 Signal, Height Loss, Bulge) (91%), Disc T2-Signal Loss(83%), Disc Height Loss (56%), Disc Bulge (64%), Disc Protrusion (32%), AnnularFissure (38%). Thank you for letting us participate in the care of this patient. Forquestions regarding this report, please contact the number below. Michael Reagan MD IM MRI ORDERABLES documented in this encounter Visit Diagnoses Diagnosis Back pain, unspecified back location, unspecified back pain laterality, unspecified chronicity Schwannoma Other benign neoplasm of connective and other soft tissue of unspecified site documented in this encounter Administered Medications Inactive Administered Medications - up to 3 most recent administrations Medication Order MAR Action Action Date Dose Rate Site diazePAM (VALIUM) tablet 5 mg 5 mg, Oral, EVERY 30 MIN PRN, 2 doses, Starting on Vicky 11/03/18 at 0831, Until Vicky 11/03/18 at 1637, Anxiety, Angio/IR (Day of Procedure), Routine Given 11/03/2018 4:37 PM EDT 5 mg Given 11/03/2018 4:10 PM EDT 5 mg documented in this encounter Care Teams Litigation Examiner Relationship Specialty Start Date End Date Peña Turner DO [address] [place] [address] PCP - General 05/13/10 07/21/21 documented as of this encounter
--- OUTSIDE RECORDS SUMMARY | 2024-06-12 14:16 | XMS_ITS | Encounter Summary ---
Author Organization [facility] Address [facility] [place] [address] Care Team Providers Care Community Health Counselor Name Role Phone Johnny, Peña WALDRON Primary Care Provider [phone] Reason for Referral * Consultation (SULLY) - Canceled Specialty Diagnoses / Procedures Referred By Controssy t Referred To Contact Gastroenterology Diagnoses Gallstone pancreatitis Nahid Shah MD [facility] [place] [address] [facility] [address] [place] [address] Referral ID Status Reason Start Date Expiration Date V isits Requested Visits Authorized [id number] Canceled Consult, Test & Treat 02/05/2021 02/05/2022 1 1 Encounter Details Date Type Department Care Team (Late st Contact Info) Description 02/05/2021 [place] [address] Nahid Shah MD [facility] [place] [address] Gallstone pancreatitis Social History Tobacco Use Types [...] of this encounter Plan of Treatment Scheduled Referrals Name Type Priority Associated Diagnoses Order Schedule Referral to Gastroenterology Outpatient Referral Routine Gallstone pancreatitis Ordered: 02/05/2021 documented as of this encounter Visit Diagnoses Diagnosis Gallstone pancreatitis Acute pancreatitis documented in this encounter Care Teams Community Health Counselor Relationship Specialty Start Date End Date Peña Turner DO [address] [place] [address] PCP - General 05/13/10 07/21/21 documented as of this encounter
--- OUTSIDE RECORDS SUMMARY | 2024-06-12 14:16 | XMS_ITS | Encounter Summary ---
Author Organization [facility] [place] [address] Care Team Providers Care Liner Reroll Tender Name Role Phone Peña Turner DO Primary Care Provider [phone] Reason for Referral * Surgical (Routine) - Closed Specialty Diagnoses / Procedures Referred By Contac t Referred To Contact General Surgery Diagnoses Gallstone pancreatitis [place] [address] [facility] [address] [place] [phone] Referral ID Status Reason Start Date Expiration Date V isits Requested Visits Authorized [id number] Closed Consult, Test & Treat 02/16/2021 02/16/2022 1 1 * Consultation (SULLY) - Closed Specialty Diagnoses / Procedures Referred By Contac t Referred To Contact Gastroenterology Diagnoses Gallstone pancreatitis [place] [address] [facility] [address] [place] [phone] Referral ID Status Reason Start Date Expiration Date V isits Requested Visits Authorized [id number] Closed Consult, Test & Treat 02/16/2021 02/16/2022 1 1 Reason for Visit * Auth/Cert Specialty Diagnoses / Procedures Referred By Contac t Referred To Contact Diagnoses Gallstone pancreatitis Acute Pancreatitis Procedures er ipi Referral ID Status Reason Start Date Expiration Date Visits Re quested Visits Authorized [id number] 1 1 Encounter Details Date Type Department Care Team (Latest Contact Info) Description 02/04/2021 11:57 AM EDT - 02/16/2021 11:06 AM EDT Hospital Encounter [address] [place] [id number] Wil[place] [address] [place] [address] [place] [address] [address], [place] [address] Hypokalemia; Chest pain, unspecified type; Gallstone pancreatitis Discharge Disposition: Home Social History Tobacco [...] Sign Reading Time Taken Comments Blood Pressure 148/89 02/16/2021 6:57 AM EDT Pulse 92 02/10/2021 12:05 AM EDT Temperature 36.8 ??C (98.2 ??F) 02/16/2021 6:57 AM ED T Respiratory Rate 16 02/16/2021 6:57 AM EDT Oxygen Saturation 98% 02/16/2021 6:57 AM EDT Inhaled Oxygen Concentration - - Weight 108.9 kg (240 lb 1.3 oz) 02/10/2021 6:30 AM EDT Height 177 cm (5' 9.69) 02/04/2021 12: 09 PM EDT Body Mass Index 34.76 02/04/2021 12:09 PM EDT documented in this encounter Discharge Summaries * Vazquez Nj DO - 02/16/2021 10:10 AM EDT Patient Name: Pancho Babb Patient Age: 55 y.o. Language: Tajik Race: White Ethnicity: Not nor Admit date: 02/04/2021 Discharge date and time: 02/16/2021 Attending Physician: Vazquez Nj DO Discharge Physician: Vazquez Nj DO Follow-up Recommendations for Providers: - Will need an ERCP performed as an outpatient over the next month - Will need to follow up with general surgery for likely cholecystectomy - Please continue bowel regimen for likely opioid induced constipation vs ileus Inpatient Provider Contact Information: For questions regarding this document or issues relating to this hospitalization on the Medical Service, please contact your inpatient physician through the [facility] [employer] . Issues afterhours and on weekends will be handled by the staff on-call. Discharge Diagnoses (Hospital Problems) and Secondary Diagnoses (Chronic Problems): Active Hospital Problems Diagnosis ??? Hypertensive crisis ??? Gallstone pancreatitis ??? Insulin resistance (high c-peptide 8.2 on 08/12/18 and low HDL 34) ??? Diabetes mellitus diagnosed at age 49 (A1c 6.8% in Jun 2015) ??? Hypertension ??? Obesity ??? Hypokalemia Resolved Hospital Problems Diagnosis Date Resolved ??? Acute respiratory failure 02/05/2021 ??? GRICELDA (acute kidney injury) 02/06/2021 Active Non-Hospital Problems Diagnosis ??? Vitamin D deficiency ??? Adrenal nodule History of Presentation: Pancho Babb is a 55 y.o. male with a past medical history of alcohol use disorder, HTN, hypokalemia (due to primary hyper-aldosteronism due to bilateral adrenal nodular hyperplasia followed by endocrinology, most recent Endocrine visit 06/2020) and non-insulin dependent type II DM who was transferred from [facility] intubated and admitted to the MICU for gallstone pancreatitis and choledocholithiasis. ?? He presented to [facility] on February 02 for acute onset epigastric pain and was found to have acute pancreatitis with lipase 15,000 and elevated total bilirubin of 1.3, AST 152, ALT 198, alkaline phosphatase normal at 110. Triglyceride was normal at 101. He had elevated white count at 18,000 and hemoglobin 16.4 and platelet 218 on admission. CTA of the chest and abdomen showed diffuse interstitial infiltrates but no pulmonary emboli. Abdominal portion of the CTA showed diffuse peripancreatic inflammatory stranding and fluid consistent with acute pancreatitis. He also had fluid-filled loops of smallbowel with air-fluid levels with no significant bowel wall thickening or inflammatory changes with no evidence of obstruction, which indicated ileus. CTA initial read showed no signs of cholelithiasis and no gallbladder wall thickening, no pericholecystic fluid and no intrahepatic or extrahepatic biliary ductal dilatation. However, CTA was later read as showing cholelithiasis and a possible calculus in the lower portion of the common bile duct. There was no sign of portal vein thrombosis or superior mesenteric vein thrombosis on CT imaging. Based on the CTA result, MRCP and abdominal ultrasound were ordered. Abdominal ultrasound showed the presence of gallstones in the gallbladder lumen although gallbladder wall did not appear grossly edematous. Common bile duct could not be evaluated butwas noted to be slightly prominent and contain calculi in the lower common bile duct. Ascites was noted in bilateral upper quadrants. MRI of the abdomen confirmed cholelithiasis with multiple intraluminal gallstones with a small foci in the lower common bileduct was mildly dilated and pancreas showed abundant peripancreatic fluid with no dilatation of the pancreatic duct. Common bile duct measured 10 mm. Consistent with choledocholithiasis. He was given Dilaudid for abdominal pain. ?? On her hospital day 2 (02/03), he was empirically started on meropenem due to fever, rising leukocytosis in the setting of choledocholithiasis. On the day prior to transfer because of increased abdominal pain he was put on a ketamine drip and the dosing of Dilaudid was weaned down. He was started nicardipine drip due to hypertensive urgency with systolic blood pressure of 190-200. He was eventually weaned off the nicardipine drip by time of transfer. Also he was started on phenobarbital for whatwas made misinterpreted as acute alcohol withdrawal on February 02 (last recorded alcohol use was at the end of November,). In the morning of February 04, he showed signs of increasing oxygen requirement on 5 L nasal cannula his tachypnea and persistent tachycardia. Blood pressure remained stable. Because of concern of potential respiratory decline he was preemptively intubated this morning. Attempted to transfer him to [facility] for ERCP but no available bed. ?? Vitals and labs and time of transfer: Vitals: Blood pressure 113/70, respiratory rate 20, heart rate 101, temp is 38.4. O2 saturation 94%on FiO2 of 40%, assist control respiration rate 20, tidal volume 440, PEEP 8, Labs: WBC 23.5, Hb 14.4, plt 112, Na 142, K 4.1, BUN 27, bicarb 22, Cr 1.1, tbili 1.4, AST 94, ALT 95, alk phos 65, LDH 1047, CRP>25, albumin 2.9, lipase 4695, procalcitonin on 2.9. Blood cultureswere still pending from 02/03. Imagings: CTA abdomen, MRI abdomen, RUQ ultrasound results per above. Hospital Course: # Intubation for compromised airway and respiratory failure. Initial ABG performed was unremarkable for acidosis or hypoxia. We were able to quickly wean his sedation and extubate him. # Gallstone Pancreatitis Initial labs upon arrival showed down trending LFTs and lipase levels than that observed at the OSH(see below in labs). GI was consulted for possible need for urgent/emergent ERCP for choledocholithiasis. Per GI there is no concern at this point for cholangitis due to stable LFTs, normal bilirubin, no hypotension or other concerning signs of cholangitis. Due to the possibility of an ongoing stone in his common bile duct he should have an outpatient ERCP in the next month. IV Zosyn was continued by the ICU team (started on 02/04) as he had intermittent low grade fevers and no blood culture data back (however UA and CXR were unconcerning). Intractable pain was treated with dilaudid and once his gricelda resolved NSAIDs added. Due to continued pain a CT ab/pel was obtained that showed necrotizing pancreatitis without drainable collection, air in the pancreas, or duct disruption. His pain was subsequently better controlled with the replacement of IV opiates with PO opiates. His course was further complicated by the development of fevers on two consecutive days. A CT abdomen with contrast was repeated that showed progression of pancreatic necrosis and surrounding edema, but again no drainable collection or evidence of infected necrosis. He was initially started on pip-t azo, but this was stopped after 48 hours when his blood cultures were negative. Surgery was consulted and felt there was no need for operative intervention. GI was consulted and recommended MRCP, which confirmed that there was no ductal disruption and thus no need for inpatient ERCP. AST, ALT, and alkaline phosphatase noted to jump 2 days prior to discharge, but remained stable and likely due to choledocholithiasis upon review with GI. Bilirubin remained normal. By the time of discharge his pain was controlled with Tylenol, ibuprofen, and 5mg dose oxycodone every 3 hours, but he was using only 4 of the 8 available doses. After discharge he will follow up with GI for outpatient ERCP and will eventually see general surgery for cholecystectomy. # Hypertension # Tachycardia We initially held his home blood pressure medications given he was normotensive with a known recentAKI from the outside hospital. He was restarted on all his home medications on 02/05 including spironolactone an lisinopril. His tachycardia seemed to improve some with pain control and anxiety management given difficult situation at home. By the time of discharge his blood pressure was well controll ed on his home medications. # DMII Metformin was held and was on a sliding insulin scale while in this hospital. Basal insulin was required after he started a diet but this was stopped at discharge and he should resume his home metformin dosing as this provided excellent glucose control at home. # GRICELDA (resolved) His GRICELDA on initial labs (see below) had resolved to his baseline (~0.9) on 02/05. Vital Signs at Discharge: BP: 148/89, Heart Rate: 92, Temp: 36.8 ??C (98.2 ??F), Resp: 16, BMI (Calculated): 35.33 Height: 177 cm (5' 9.69) (02/04/21 1209) Weight: 108.9 kg (240 lb 1.3 oz) (02/10/21 0630) Functional and Cognitive Status: Cognitively intact Important Studies and Lab Data: Labs: Last 3 wbc, hgb, hct plt Recent Labs 02/16/21 0436 02/15/21 0530 02/14/21 0400 WBC 11.0* 11.9* 9.8* HGB 10.7* 11.2* 9.7* HCT 32.1* 33.7* 28.5* PLATELET 430* 418* 355 Last 3 Lytes Recent Labs 02/16/21 0436 02/15/21 0530 02/14/21 0400 NA 137 139 136 K 4.8 5.0 4.3 CL 104 103 104 CO2 25 25 25 BUN 11 10 8* CREATININE 0.64* 0.70* 0.71* Last 3 LFTs Recent Labs 02/16/21 0436 02/15/21 0530 02/14/21 0400 02/11/21 0450 02/10/21 0417 AST 99* 78* 20 24 21 ALT 193* 101* 34 27 26 ALKPHOS 387* 308* 113 90 83 BILITOT 0.3 0.3 0.3 0.4 0.5 BILIDIR 0.1 -- -- 0.2 0.2 Last Ca, Mg, Phos Recent Labs 02/16/21 0436 02/14/21 0400 CALCIUM 8.9 8.3* PHOS -- 3.3 MAGNESIUM 0.89 -- Last 3 Coags No results for input(s): PT, INR, PTT in the last 168 hours. Recent Labs 06/24/20 1704 HA1C 5.4 Studies: CXR 02/04: IMPRESSION New endotracheal tube placement since the previous study, tip approximately 7 cm above the fide. Nasogastric tube, tip in stomach No other interval change. Hypoinflation. LEFT basilar focal atelectasis and/or pneumonia. AXR 02/04/21: FINDINGS/IMPRESSION: The enteric tube which appears over the region of the stomach on chest radiograph dated 02/04/2021 at 12:34 hours is not seen on this exam obtained 2 minutes later. If the enteric tube was not manipulated between these 2 studies it is likely that the [id number]-[id number] of this study does not include the enteric tube positioned in the upper abdomen. If the enteric tube was manipulated then it's position is unknown. Results for orders placed or performed during the hospital encounter of 02/04/21 XR Chest One View (Exam End: 02/04/2021 12:51 PM) Impression New endotracheal tube placement since the previous study, tip approximately 7 cm above the fide. Nasogastric tube, tip in stomach No other interval change. Hypoinflation. LEFT basilar focal atelectasis and/or pneumonia. Thank you for letting us participate in the care of this patient. If you are a health care provider and have any questions regarding this report, please contact the number below. For patients who have questions please contact the health live in caregiver that requested your imaging first. Electronically signed by: Aniket Medina MD, [facility] ([phone]), at 02/04/2021 1:19 PM XR Abdomen 1 view (Generic) (Exam End: 02/04/2021 12:51 PM) Impression FINDINGS/IMPRESSION: The enteric tube which appears over the region of the stomach on chest radiograph dated 02/04/2021 at 12:34 hours is not seen on this exam obtained 2 minutes later. If the enteric tube was not manipulated between these 2 studies it is likely that the [id number] of this study does not include the enteric tube positioned in the upper abdomen. If the enteric tube was manipulated then it's position is unknown. Stool in the ascending colon and cecum. I have personally reviewed the image(s) and the resident's interpretation and agree with the findings, Ruslan Quintanilla MD at 02/04/2021 2:31 PM Thank you for letting us participate in the care of this patient. If you are a health care provider and have any questions regarding this report, please contact the number below. For patients who have questions please contact the health live in caregiver that requested your imaging first. Electronically signed by: Ruslan Quintanilla MD, [facility] ([phone]), at 02/04/2021 2:31 PM XR Chest PA & Lateral (Generic) (Exam End: 02/06/2021 9:10 PM) Impression Improved bibasilar atelectasis. Very small pleural effusions. Thank you for letting us participate in the care of this patient. If you are a health care provider and have any questions regarding this report, please contact the number below. For patients who have questions please contact the health live in caregiver that requested your imaging first. Electronically signed by: Daisy Larsen MD, [facility] ([phone]), at 02/07/2021 8:[address] Abdomen & Pelvis w Contrast (Exam End: 02/07/2021 11:22 PM) Impression 1. Necrotizing pancreatitis. 2. Interval necrosis of pancreatic segments as described in the body the report without ductal dilation concerning for duct disruption. 3. Progression of peripancreatic edema and inflammatory stranding and ascites. 4. Cholesterol stones evident in the gallbladder. Thank you for letting us participate in the care of this patient. If you are a health care provider and have any questions regarding this report, please contact the number below. For patients who have questions please contact the health live in caregiver that requested your imaging first. Electronically signed by: Deepika Ramsey MD, [facility] ([phone]), at 02/08/2021 10:43 AM XR Chest One View (Exam End: 02/08/2021 11:15 PM) Impression Low lung volume exam with evidence of bibasilar effusion and or airless lung. Thank you for letting us participate in the care of this patient. If you are a health care provider and have any questions regarding this report, please contact the number below. For patients who have questions please contact the health live in caregiver that requested your imaging first. Electronically signed by: Wyatt Mitchell MD, [facility] ([phone]), at 02/09/2021 1:[address] Abdomen w Contrast (Exam End: 02/10/2021 10:50 PM) Impression 1. Similar appearance of necrotizing pancreatitis with mild interval increase in edema and fluid in the lesser sac. 2. Evidence of [place] and [place] sign. 3. Interval enlargement of gallbladder. Ptotic gallbladder. Cannot rule out cholecystitis. Thank you for letting us participate in the care of this patient. If you are a health care provider and have any questions regarding this report, please contact the number below. For patients who have questions please contact the health live in caregiver that requested your imaging first. Electronically signed by: Wyatt Mitchell MD, [facility] ([phone]), at 02/11/2021 1:10 AM MRI Cholangiopancreatography (Exam End: 02/13/2021 7:01 PM) Impression 1. Ongoing necrotizing pancreatitis with acute peripancreatic fluid collections, the largest of which extends into the gastrosplenic ligament. 2. The pancreatic and common bile ducts are intact. 3. Choledocholithiasis within the caudal common bile duct. No biliary ductal dilatation. 4. Cholelithiasis and hydropic gallbladder. I have personally reviewed the image(s) and the resident's interpretation and agree with the findings, Sal Walton DO at 02/14/2021 9:01 AM Thank you for letting us participate in the care of this patient. If you are a health care provider and have any questions regarding this report, please contact the number below. For patients who have questions please contact the health live in caregiver that requested your imaging first. Electronically signed by: Sal Walton DO, [facility] ([phone]), at 02/14/2021 9:01 AM Pending Studies and Lab Data: Blood cultures were pending upon discharge Discharge Conditions/Prognosis: Stable Discharge to: [place] (med/surg group) Updated Allergies/ADRs: No Known Allergies Immunizations Given this Hospitalization: Immunization History Administered Date(s) Administered ??? Td, adult 04/23/2004 Discharge Medications: Your Medications New Medications Dose Details acetaminophen 500 mg Tab Commonly known as: Tylenol Take 2 tablets by mouth every 8 hours for 10 days. 1,000 mg Refills: 0 ibuprofen 600 mg Tab Commonly known as: Advil Take 1 tablet by mouth every 8 hours for 5 days. 600 mg Quantity: 15 tablet Refills: 0 oxyCODONE 5 mg Tab Commonly known as: Roxicodone Take 1 tablet by mouth every 3 hours as needed for Pain. 5 mg Quantity: 24 tablet Refills: 0 senna-docusate 8.6-50 mg Tab Commonly known as: Pericolace Take 1 tablet by mouth 2 times daily for 6 days. 1 tablet Quantity: 12 tablet Refills: 0 Continued medications with new dosing Dose Details amLODIPine 5 mg Tab Commonly known as: Norvasc Take 1 tablet by mouth daily. What changed: how to take this 5 mg Quantity: 90 tablet Refills: 3 metFORMIN XR 500 mg Tablet sr Commonly known as: Glucophage XR Take 3 tablets by mouth daily. What changed: Another medication with the same name was removed. Continue taking this medication, and follow the directions you see here. 1,500 mg Quantity: 270 tablet Refills: 3 Continued medications, unchanged Dose Details aspirin EC 81 mg Tbec Take 81 mg by mouth daily. 81 mg Refills: 0 ergocalciferoL (vitamin D2) 50,000 unit Cap Commonly known as: vitamin D Take 1 capsule by mouth once a week. 50,000 Units Quantity: 13 capsule Refills: 4 lisinopriL 20 mg Tab Commonly known as: Zestril Take 20 mg by mouth daily. 20 mg Refills: 0 spironolactone 25 mg Tab Commonly known as: Aldactone TAKE ONE TABLET BY MOUTH TWICE A DAY Quantity: 180 tablet Refills: 3 Smoking Status at Discharge: Social History Tobacco Use Smoking Status Never Smoker Smokeless Tobacco Never Used Last Set of Vitals and range of vitals over past 24 hours: Last value Range last 24 hrs Temperature Temp: 36.8 ??C (98.2 ??F) Temp: [36.8 ??C (98.2 ??F)] Heart Rate Heart Rate: 92 Heart Rate: -- Blood Pressure BP: 148/89 BP: (141-149)/(86-89) Respiratory Rate Resp: 16 Resp: [16-24] SpO2 SpO2: 98 % SpO2: [96 %-98 %] Code Status at Discharge: Full Code Instructions Given to Patient at Discharge: Patient Instructions Instruction after leaving the hospital Why you were hospitalized: You came to [facility] as a transfer for severe pancreatitis. The cause of thepancreatitis was obstruction by a gallstone. We treated you with IV fluids and pain control. There was initial concern that you had an infection of your gallbladder but this was felt to be less likely after further workup. After you were transferred to the medicine floor your pain was controlled with oral pain medication. You developed fevers, for which you had two CT scans and an MRI of your abdomen, none of which showed a serious infection of your pancreas or a blockage in your biliary system that needed intervention. You were ultimately discharged with a short course of oxycodone for pain control and with plans to follow up with gastroenterology for ERCP and general surgery for gall bladder removal after this hospitalization. Call your doctor or seek medical attention if you develop the following: Call your doctor or seek medical attention if you experience any alarming symptoms. This may include, but is not limited to, fever, chest pain, severe shortness of breath, nausea with vomiting, persistent decrease in your urinary output, severe pain, or any other concerning symptoms. Activity level: As tolerated. Diet: No new restrictions. Driving: Please do not drive if you feel lightheaded, dizzy, faint, or taking any opioids/narcotics(i.e oxycodone). It is advisable that you do not drive till you follow-up with your primary care physician. Shower/Bath: No new restrictions. Home Oxygen therapy: N/A Patient Instructions: Follow-Up Appointments No future appointments. Date and Time Provider and Specialty Location Need to be scheduled Peña Turner DO , PCP [address] [facility] 1 / [facility] [id number] Your Inpatient Doctor(s) at [facility]: Vazquez Nj DO Your Primary Care Provider: Peña Turner DO [address] [facility] 1 / [facility] [id number] For questions regarding this document or issues relating to this hospitalization on the Medical Service, please contact your inpatient physician through the [facility] [employer] . Issues afterhours and on weekends will be handled by the Hospitalist staff on-call. General Instructions Mental Health Resources (accepting Medicaid and have experience in trauma/PTSD) Jacqueline Boyer Clinical Social Work/Therapist, MECHANICAL ENGINEERING SPECIALIST [address] [place], [place] [address] x3 [facility] Fadia Garcia Counselor, [facility], RPT-S, NCC, [facility] [address] [place], [place] [address] [facility] Pre-Licensed Professional, [place] [address] [place], [place] [id number] [facility] [address] [place], [place] [id number] x3 [facility] [address] [place], [place] Call 11/01-General Information Agency of Human Services: The [facility] Offices in [facility] are located at [address], [address], [address], [place] [address]. See photos and more information about where programs are located below. [facility] offices are open during regular business hours -- 7:45am to 4:30pm, Wednesday through Wednesday. [facility] Contact Information Lease Attendant: Syl Griffith Location: [address], [address] [address], [place] [address] Office: [phone] Email: [email or web address] Appointments and Orders Future Orders Complete By Expires Full code [COD2 Custom] As directed Process Instructions: 1. Completing this order indicates that the recording provider had a discussion with the patient and/or their agent regarding their wishes for resuscitation. 2. If the patient does not have decision making capacity, the provider must document within the order and in the contemporaneous progress note which of the patient's agents the discussion was held with. 3. If this Full Code Order is a revocation or cancellation of a previous DNR order and the providerrecording this order in the system is not the Attending of Record, then the recording provider willhave discussed this order with the Attending of Record and is documenting the decision of the Attending of Record obtained through explicit verbal review. Scheduling Instructions: Questions: Does patient have capacity to make decision: Yes Content of discussion: Referral to Gastroenterology [REF25 Custom] As directed Process Instructions: If requesting a colonoscopy please use [id number] REFERRAL TO COLONOSCOPY PROCEDURE. This referral request is for evaluation and treatment of gastrointestinal health concerns. Scheduling Instructions: Questions: My question or request is: gallstone pancreatitis, ERCP deferred to outpatient setting. Please helpschedule outpatient ERCP Referral to General Surgery [REF27 Custom] As directed Process Instructions: If no progress note charted, please enter Clinical details in comments. If you are requesting vascular access please answer the VAD questions Due to the OR limitations at the [facility], if you are considering surgery for this patient, and their BMI is greater than 50, please refer to [facility] (or a division other than [facility]). Scheduling Instructions: Questions: Are you seeking Vascular Access?: No My question or request is: gallstone pancreatitis, cholecystectomy deferred to outpaitent setting after ERCP Provider Contact Information: Peña TurnerDO [address] [facility] / [facility] [address] Discharge References/Attachments None documented in this encounter Discharge Instructions * Discharge Instructions* Sabrina Sanchez APRN - 02/14/2021 2:39 PM EDT Mental Health Resources (accepting Medicaid and have experience in trauma/PTSD) Jacqueline Boyer Clinical Social Work/Therapist, MECHANICAL ENGINEERING SPECIALIST [address] [place] [address] x3 [facility] Fadia Garcia Counselor, [facility], RPT-S, NCC, [facility] [address] [place] [address] Faiza Medellin Pre-Licensed Professional, [place] [address] [facility] [place] [address] [facility] [address] [place] [address] x3 [facility] [address] [place], [place] Call 11/01-[facility] Agency [facility] Human Services: The [facility] District Offices in [facility] are located at [address], and [address], [address], [place] [address]. See photos and more information about where programs are located below. District offices are open during regular business hours -- 7:45am to 4:30pm, Wednesday through Wednesday. [facility] Contact Information Lease Attendant: Syl Griffith Location: [address], [place] [address] Office: [phone] Email: [email or web address] * Patient Instructions* Vazquez Nj DO - 02/14/2021 5:51 PM EDT Instruction after leaving the hospital Why you were hospitalized: You came to [facility] as a transfer for severe pancreatitis. The cause of thepancreatitis was obstruction by a gallstone. We treated you with IV fluids and pain control. There was initial concern that you had an infection of your gallbladder but this was felt to be less likely after further workup. After you were transferred to the medicine floor your pain was controlled with oral pain medication. You developed fevers, for which you had two CT scans and an MRI of your abdomen, none of which showed a serious infection of your pancreas or a blockage in your biliary system that needed intervention. You were ultimately discharged with a short course of oxycodone for pain control and with plans to follow up with gastroenterology for ERCP and general surgery for gall bladder removal after this hospitalization. Call your doctor or seek medical attention if you develop the following: Call your doctor or seek medical attention if you experience any alarming symptoms. This may include, but is not limited to, fever, chest pain, severe shortness of breath, nausea with vomiting, persistent decrease in your urinary output, severe pain, or any other concerning symptoms. Activity level: As tolerated. Diet: No new restrictions. Driving: Please do not drive if you feel lightheaded, dizzy, faint, or taking any opioids/narcotics(i.e oxycodone). It is advisable that you do not drive till you follow-up with your primary care physician. Shower/Bath: No new restrictions. Home Oxygen therapy: N/A Patient Instructions: Follow-Up Appointments No future appointments. Date and Time Provider and Specialty Location Need to be scheduled Peña Turner DO , PCP [address] [facility] / [facility] [address] Your Inpatient Doctor(s) at [facility]: Vazquez Nj DO Your Primary Care Provider: Peña Turner DO [address] [facility] 1 / [facility] [id number] For questions regarding this document or issues relating to this hospitalization on the Medical Service, please contact your inpatient physician through the [facility] [employer] . Issues afterhours and on weekends will be handled by the Hospitalist staff on-call. documented in this encounter Medications at Time [...] Tablet Take 20 mg by mouth daily. acetaminophen (Tylenol) 500 mg Tablet Take 2 tablets by mouth every 8 hours for 10 days. 0 02/16/2021 02/26/2021 ibuprofen (Advil) 600 mg Tablet Take 1 tablet by mouth every 8 hours for 5 days. 15 tablet 02/16/2021 02/21/2021 senna-docusate (Pericolace) 8.6-50 mg Tablet Take 1 tablet by mouth 2 times daily for 6 days. 12 tablet 02/16/2021 02/22/2021 amLODIPine (Norvasc) 5 mg Tablet Take 1 [...] as of this encounter Progress Notes * Iza Sheldon RN - 02/16/2021 10:30 AM EDT Patient is A&Ox4, VSS. Patient up ambulating around unit this AM, took shower. Endorsed 09/28 abdominal pain - scheduled Tylenol and PRN oxy given x1. Denies chest pain, SOB, nausea. IVs removed, pt tolerated well. AVS reviewed with pt, questions encouraged and answered. Patient belongings in hand. * Vazquez Nj DO - 02/16/2021 10:09 AM EDT HOSPITAL MEDICINE ATTENDING DAY OF DISCHARGE NOTE Patient Pancho Babb 1965 [id number] Physician Vazquez Nj DO Pager: [phone] Hospitalist Encounter Date February 16, 2021 PCP Peña Turner DO PCP phone [phone] Discharge diagnosis Active Hospital Problems Diagnosis ??? Hypertensive crisis ??? Gallstone pancreatitis ??? Insulin resistance (high c-peptide 8.2 on 08/12/18 and low HDL 34) ??? Diabetes mellitus diagnosed at age 49 (A1c 6.8% in Jun 2015) ??? Hypertension ??? Obesity ??? Hypokalemia Resolved Hospital Problems Diagnosis Date Resolved ??? Acute respiratory failure 02/05/2021 ??? GRICELDA (acute kidney injury) 02/06/2021 Secondary Issues Active Non-Hospital Problems Diagnosis ??? Vitamin D deficiency ??? Adrenal nodule Gallstone pancreatitis improving with conservative management, but still requires ERCP and cholecystectomy to be arranged by GI and general surgery soon after discharge. I have personally seen and examined the patient and they are ready for discharge. I spent >30 minutes (Day of Discharge Code 16462) involved in the final examination of the patient, discussion of the hospital stay, instructions for continuing care to all relevant caregivers, and preparation of discharge records, prescriptions and referral forms. Plans Discharge to home Follow-up scheduled with No future appointments. Please see the Discharge Summary for complete details of any medication changes and additional plans. Vazquez Nj DO Pager: [phone] February 16, 2021 10:10 AM * Dasia Rosa MD - 02/16/2021 8:[address] [facility] Department of Surgery Inpatient Consult Note Reason for Consult: pancreatic necrosis with fluid collection on CT HPI: Pancho Babb is a 55 y.o. male with a PMH of HTN, T2DM, obesity, and nephrolithiasis who was admitted critically ill 12 days ago with gallstone pancreatitis. He was overall improving with supportive management of IV fluids and pain control, nearing discharge home with plan for ERCP in 4-6 weeks f/b cholecystectomy. However, he became febrile overnight (Tmax 38.8) so CT scan was obtained which showed persistent severe necrotizing pancreatitis with worsening edema and enlarged fluid collection in the lesser sac. PMH: - HTN - T2DM - obesity - nephrolithiasis PSH: - back surgery No prior abdominal surgeries. Past Surgical History: Procedure Laterality Date ??? PRO COLONOSCOPY, DIAGNOSTIC N/A 01/14/2016 COLONOSCOPY, DIAGNOSTIC performed by Ruslan Taylor MD at [facility] MEDS: Current Outpatient Medications on File Prior to Encounter Medication Sig Dispense Refill ??? metFORMIN XR (Glucophage XR) 500 mg Tablet Sustained Release 24 hr Take 3 tablets by mouth daily. 270 tablet 3 ??? ergocalciferoL, vitamin D2, (vitamin D) 50,000 unit Capsule Take 1 capsule by mouth once a week. 13 capsule 4 ??? metFORMIN (FORTAMET) 500 mg Tablet Extended Rel 24 hr Take 2 tablets by mouth daily. 270 tablet4 ??? spironolactone (ALDACTONE) 25 mg Tablet TAKE ONE TABLET BY MOUTH TWICE A DAY 180 tablet 3 ??? amLODIPine (NORVASC) 5 mg Tablet 5 mg daily. ??? lisinopril (PRINIVIL;ZESTRIL) 20 mg Tablet Take 20 mg by mouth daily. ??? aspirin 81 mg Tablet, Delayed Release (E.C.) Take 81 mg by mouth daily. ALL: No Known Allergies FHx: Denies family history of bleeding or clotting disorders. SHx: Socioeconomic History ??? Marital status: Occupational History ??? 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 Smoking status: Never Smoker ??? Smokeless tobacco: Never Used Vaping Use ??? Vaping Use: Never used Substance and Sexual Activity ??? Alcohol use: Yes Comment: occasionally, weekly 2-6 drinks at once ??? Drug use: No ROS: A 10-point review of systems was negative except as noted in HPI. VITALS: Patient Vitals for the past 24 hrs: Temp Heart Rate From SP02 Resp BP SpO2 O2 Device 02/15/21 1435 36.8 ??C (98.2 ??F) 92 bpm 24 141/88 96 % RA 02/15/212128 -- -- -- 147/88 -- -- 02/16/21 0239 36.8 ??C (98.2 ??F) 97 bpm 18 149/86 96 % -- 02/16/21 0657 36.8 ??C (98.2 ??F) 88 bpm 16 148/89 98 % -- EXAM: Gen: NAD, resting comfortably in bed, conversant HEENT: MMM, no scleral icterus CV: sinus tachycardia to 100s, normotensive on monitor, pulses 2+ b/l (radial, DP) Pulm: unlabored breathing on RA, no wheezing GI/Abd: soft, obese, mildly distended but not tympanic, mildly tender to deep palpation in suprapubic region, otherwise nontender throughout to palpation and percussion, no prior scars noted MSK: extremities warm, no notable edema Neuro: alert, sleepy, no focal deficits LABS: Recent Labs 02/16/2143502/15/2152902/14/21 04002/12/21 0926 02/11/21 0450 WBC 11.0* 11.9* 9.8* 13.1* 12.7* HGB 10.7* 11.2* 9.7* 9.8* 8.9* HCT 32.1* 33.7* 28.5* 29.0* 26.1* PLATELET 430* 418* 355 331 275 NEUTROABS -- -- -- 10.91* 10.77* Recent Labs 02/16/2143502/15/21 0502/14/21 0400 NA 137 139 136 K 4.8 5.0 4.3 CL 104 103 104 CO2 25 25 25 BUN 11 10 8* CREATININE 0.64* 0.70* 0.71* Recent Labs 02/16/2143502/15/21 0530 02/14/21 0400 02/10/21 0417 CALCIUM 8.9 9.1 8.3* 7.9* MAGNESIUM 0.89 -- -- 0.82 PHOS -- -- 3.3 -- Recent Labs 02/16/2143502/12/21 0926 GLUCOSE 172 190 Recent Labs 02/16/2143502/15/21 0530 02/14/21 0400 02/11/21 0450 02/10/21 0417 AST 99* 78* 20 24 21 ALT 193* 101* 34 27 26 ALKPHOS 387* 308* 113 90 83 BILITOT 0.3 0.3 0.3 0.4 0.5 BILIDIR 0.1 -- -- 0.2 0.2 No results for input(s): INR, PT, PTT in the last 168 hours. MICRO: No new results. (BCx from OSH with no growth) IMAGING/DIAGNOSTICS: CT A/P 02/10/2021 1. Similar appearance of necrotizing pancreatitis with mild interval increase in edema and fluid inthe lesser sac. 2. Evidence of [place] and [place] sign. 3. Interval enlargement of gallbladder. Ptotic gallbladder. Cannot rule out cholecystitis. MRCP 02/13: 1. Ongoing necrotizing pancreatitis with acute peripancreatic fluid collections, the largest of which extends into the gastrosplenic ligament. 2. The pancreatic and common bile ducts are intact. 3. Choledocholithiasis within the caudal common bile duct. No biliary ductal dilatation. 4. Cholelithiasis and hydropic gallbladder. ASSESSMENT: Pancho Babb is a 55 y.o. male with HTN, T2DM, and prior nephrolithiasis who is admitted with gallstone pancreatitis. General Surgery was consulted for increasing size of peripancreatic fluid collection with concern for infection. Given his clinical stability, would not offer an operation at this time. If he develops hemodynamic instability and/or fever, would first work up other possible sources of infection then, if unrevealing, would consider endoscopic drainage of the fluid collection. He is endorsing improved pain this morning with regular diet. His LFT's are up- trending, but clinically improving. RECOMMENDATIONS: ?? Continue to monitor I/O, serial abdominal exams, labs, toleration of diet. ?? ERCP to be done in an outpatient setting per GI. ?? Follow up in General Surgery clinic in 4-6 weeks if patient gets discharged for further management. ?? Please page #[phone] with questions or concerns. Dasia Renteria MD Consult pager #[phone] 02/16/2021 8:46 AM * Vazquez Nj DO - 02/15/2021 1:42 PM EDT [facility] MEDICINE ATTENDING DAILY PROGRESS NOTE Patient: Pancho Babb, 1965, [id number] Physician: Vazquez Nj DO, Pager: [phone], [facility] Medicine Service Admit Date: 02/04/2021 Date of Service: February 15, 2021 Hospital Day: 11 PCP: Peña Turner DO, ASSESSMENT/PLAN: Active Hospital Problems Diagnosis ??? Hypertensive crisis ??? Gallstone pancreatitis ??? Insulin resistance (high c-peptide 8.2 on 08/12/18 and low HDL 34) ??? Diabetes mellitus diagnosed at age 49 (A1c 6.8% in Jun 2015) ??? Hypertension ??? Obesity ??? Hypokalemia Resolved Hospital Problems Diagnosis Date Resolved ??? Acute respiratory failure 02/05/2021 ??? GRICELDA (acute kidney injury) 02/06/2021 1. Acute gallstone and necrotizing pancreatitis: Necrosis seen on 02/08/21 CT scan. Initial concern for cholangitis on presentation to an [facility], but no evidence on imaging. Sharp increase in his LFTs overnight. Bilirubin stable. Abdominal pain however appears improved. We will continue to watch todaygiven the sharp increase. No evidence of recurrent gallstone obstruction. No further fevers and antibiotics stopped on 02/12/2021. Appreciate general surgery and GI assistance. Plan for outpatient ERCP and definitive management of his gallbladder to prevent further recurrences. Continues to be concerned about his mother at home due to friction between his brother who is currently caring for her. No issues staying overnight during our discussion. Continue current pain medication regimen of oxycodone 5-10mg PO [id number] PRN pain, lidocaine patches, scheduled Tylenol, and PRN ibuprofen and cyclobenzaprine. Continue carb controlled and low-fat diet. Empiric scheduled stool softeners and PRN laxatives due to current narcotic use. 2. HTN: Improved control back at home medications of lisinopril 20mg PO daily, spironolactone 25mg PO BID, and amlodipine 5mg PO daily. 3. DM2: Sugars well controlled currently. Continue glargine 15units SQ nightly with mealtime and moderate SSI coverage and carb-controlled diet. Home regimen is metformin XR 1500mg PO daily. Last HgBA1c here 5.4% on 06/24/20. Continue home ASA and ACEI. No statin as outpatient. 4. DVT Prophylaxis: enoxaparin SQ CODE STATUS: Attempt Cardiopulmonary Resuscitation - Inpatient RESOLVED PROBLEMS: NONE Disposition: Home in next 24-48hrs SUBJECTIVE: Feeling reasonably well this morning. Pain decreasing and able to go most of the night without requiring breakthrough pain medications. Tolerating diet. Worried about getting home but understanding about needing to stay given LFT elevation. OBJECTIVE: Last value Range last 24 hrs Temp: 37.3 ??C (99.1 ??F) Temp: [36.7 ??C (98.1 ??F)-37.3 ??C (99.1 ??F)] Heart Rate: 92 Heart Rate from SpO2: 95 bpm Heart Rate: -- BP: 142/88 BP: (130-142)/(83-88) Resp: 24 Resp: [16-24] SpO2: 96 % SpO2: [94 %-97 %] FiO2: 1 L/min/35 % on None (Room air) Height: 177 cm (5' 9.69) Weight: 108.9 kg (240 lb 1.3 oz) BMI (Calculated): 35.33 BMI Classification: Obese Intake/Output Summary (Last 24 hours) at 02/15/2021 1410 Last data filed at 02/15/2021 1304 Gross per 24 hour Intake 580 ml Output 2625 ml Net -2045 ml GEN: awake, alert, NAD HEENT: PERRLA, EOMI, MMM, trachea midline, no JVD CHEST: CTA B/L, no W/R/R, no accessory muscle use HEART: RRR S1S2, no M/R/G, no LE edema ABD/PEL: soft, TTP in LLQ and epigastrium, ND, +BS, no rebound or guarding EXT: no clubbing or cyanosis, no erythema PSYCH/NEURO: appropriate affect and cognition, OX3 LABS/IMAGING: Recent Labs 02/15/21 0530 02/14/21 0400 02/13/21 0420 NA 139 136 138 K 5.0 4.3 4.3 CL 103 104 104 CO2 25 25 26 BUN 10 8* 6* CREATININE 0.70* 0.71* 0.68* CALCIUM 9.1 8.3* 8.2* PHOS -- 3.3 -- Recent Labs 02/15/21 0530 02/14/21 0400 02/13/21 0420 WBC 11.9* 9.8* 13.7* HGB 11.2* 9.7* 10.5* HCT 33.7* 28.5* 31.5* MCV 92.3 92.2 92.1 PLATELET 418* 355 383* Recent Labs 02/15/21 0530 02/14/21 0400 02/13/21 0420 02/12/21 0926 02/11/21 0450 02/10/21 0417 02/09/21 0440 AST 78* 20 32 60* 24 21 24 ALT 101* 34 53 56* 27 26 34 ALKPHOS 308* 113 142* 153* 90 83 78 BILITOT 0.3 0.3 0.4 0.5 0.4 0.5 0.6 BILIDIR -- -- -- -- 0.2 0.2 0.2 No results for input(s): PT, INR, PTT in the last 72 hours. Imaging: No results found for this visit on 02/04/21 (from the past 24 hour(s)). CONSULTANTS: IP CONSULT TO GASTROENTEROLOGY IP CONSULT TO GENERAL SURGERY IP CONSULT TO GASTROENTEROLOGY MEDICATIONS: SCHEDULED ??? ibuprofen 600 mg Oral Q8H ??? bisacodyL 10 mg Rectal Daily ??? insulin lispro 0-8 Units Subcutaneous TID WC ??? amLODIPine 5 mg Oral Daily ??? lisinopriL 20 mg Oral Daily ??? spironolactone 25 mg Oral BID ??? traZODone 100 mg Oral Nightly ??? acetaminophen 975 mg Oral Q8H ??? insulin glargine 15 Units Subcutaneous Nightly ??? insulin lispro 1-6 Units Subcutaneous TID AC ??? enoxaparin 40 mg Subcutaneous Nightly ??? polyethylene glycoL (MIRALAX) oral powder 17 g Oral BID ??? aspirin 81 mg Oral Daily ??? senna-docusate 1 tablet Oral BID ??? sodium chloride 0.9 % (flush) 5 mL Intravenous BID ??? lidocaine 3 patch Transdermal Q24H And ??? lidocaine 3 patch Transdermal Q24H PRN oxyCODONE, 5-10 mg, Q3H PRN LORazepam, 2 mg, Once PRN albuteroL, 2.5 mg, Q6H PRN iohexoL, 0-50 mL, Once PRN cyclobenzaprine, 10 mg, TID PRN sodium chloride 0.9 % (flush), 5-20 mL, Q1 Min PRN lidocaine, 0.3 mL, Once PRN DIET: Carb Control diet 60/60/75 CHO counting level 2 45 GM FAT (LOW FAT) IPI Certification I certify that I am a D-H credentialed attending provider with admitting privileges and that the patient meets or has met medical necessity to require an inpatient IPI level of care meeting a minimumof two midnights or is on the [facility] inpatient only procedure list (status C) due to: acute necrotizing and gallstone pancreatitis Vazquez Nj DO 2500 Hospitalist 02/15/2021 2:10 PM 3 * Dasia Rosa MD - 02/15/2021 11:59 AM EDT ID/MECHANISM OF INJURY: Pancho Babb is a 55 y.o. male with PMH HTN,DM, now S/p gallstone pancreatitis c/b necrotizing pancreatitis. He was on medical management for his hospital course and eventually needs an ERCP versus cholecystitis with IOC. He also need a follow up CT A/P with contrast to determine need for any pancreatic procedures before follow up. FOLLOW-UP NEEDED: Does pt need to f-u with surgeon or JOURNEYMAN WIREMAN (please indicate reason if attending provider): JOURNEYMAN WIREMAN How soon should TACS f/u be? 4-6 weeks Follow-up with other services? Yes, GI and PCP Advise of Service and needs. Imaging orders entered: Yes, CT abdomen and pelvis with contrast : IV and PO Radiology Safety questions done for MRI/CT? No New or current ostomy? Ostomy nurse shared visit No Mobility concerns: Fully ambulatory Wound vac (requires 60min clinic visit) No On vent? If Yes - Needs to have someone from facility and supplies. No On Dialysis: No (SCHEDULE?) INCIDENTAL FINDINGS Incidental Findings (yes/no): No No isolation D/c to: Home If Rehab - Rehab Name: PCP Name: DO Dasia Vigil MD 02/15/2021 * Dasia Rosa MD - 02/15/2021 9:[address] [facility] Department of Surgery Inpatient Consult Note Reason for Consult: pancreatic necrosis with fluid collection on CT HPI: Pancho Babb is a 55 y.o. male with a PMH of HTN, T2DM, obesity, and nephrolithiasis who was admitted critically ill 11 days ago with gallstone pancreatitis. He was overall improving with supportive management of IV fluids and pain control, nearing discharge home with plan for ERCP in 4-6 weeks f/b cholecystectomy. However, he became febrile overnight (Tmax 38.8) so CT scan was obtained which showed persistent severe necrotizing pancreatitis with worsening edema and enlarged fluid collection in the lesser sac. He is hemodynamically normal. He endorses severe back pain that is unchanged over the past few daysand mild intermittent pain in the lower quadrants. He is tolerating a full liquid diet without N/V and is passing flatus, though he has not had a normal bowel movement since prior to admission per his report. He otherwise denies chest pain, shortness of breath, dizziness, or changes in his urinary habits. PMH: - HTN - T2DM - obesity - nephrolithiasis PSH: - back surgery No prior abdominal surgeries. Past Surgical History: Procedure Laterality Date ??? PRO COLONOSCOPY, DIAGNOSTIC N/A 01/14/2016 COLONOSCOPY, DIAGNOSTIC performed by Ruslan Taylor MD at [facility] MEDS: Current Outpatient Medications on File Prior to Encounter Medication Sig Dispense Refill ??? metFORMIN XR (Glucophage XR) 500 mg Tablet Sustained Release 24 hr Take 3 tablets by mouth daily. 270 tablet 3 ??? ergocalciferoL, vitamin D2, (vitamin D) 50,000 unit Capsule Take 1 capsule by mouth once a week. 13 capsule 4 ??? metFORMIN (FORTAMET) 500 mg Tablet Extended Rel 24 hr Take 2 tablets by mouth daily. 270 tablet4 ??? spironolactone (ALDACTONE) 25 mg Tablet TAKE ONE TABLET BY MOUTH TWICE A DAY 180 tablet 3 ??? amLODIPine (NORVASC) 5 mg Tablet 5 mg daily. ??? lisinopril (PRINIVIL;ZESTRIL) 20 mg Tablet Take 20 mg by mouth daily. ??? aspirin 81 mg Tablet, Delayed Release (E.C.) Take 81 mg by mouth daily. ALL: No Known Allergies FHx: Denies family history of bleeding or clotting disorders. SHx: Socioeconomic History ??? Marital status: Occupational History ??? 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 Smoking status: Never Smoker ??? Smokeless tobacco: Never Used Vaping Use ??? Vaping Use: Never used Substance and Sexual Activity ??? Alcohol use: Yes Comment: occasionally, weekly 2-6 drinks at once ??? Drug use: No ROS: A 10-point review of systems was negative except as noted in HPI. VITALS: Patient Vitals for the past 24 hrs: Temp Heart Rate From SP02 Resp BP SpO2 O2 Device 02/14/21 1200 -- -- -- (!) 159/100 -- -- 02/14/21 1500 36.7 ??C (98.1 ??F) 96 bpm 18 130/83 97 % RA 02/14/212025 -- -- -- 137/87 -- -- 02/14/212045 37 ??C (98.6 ??F) 98 bpm 16 137/87 96 % RA 02/15/21 0522 36.8 ??C (98.2 ??F) -- -- -- -- -- 02/15/21 0523 36.8 ??C (98.2 ??F) 93 bpm 17 140/87 94 % RA 02/15/21 0823 37.3 ??C (99.1 ??F) 95 bpm 24 142/88 96 % RA EXAM: Gen: NAD, resting comfortably in bed, conversant HEENT: MMM, no scleral icterus CV: sinus tachycardia to 100s, normotensive on monitor, pulses 2+ b/l (radial, DP) Pulm: unlabored breathing on RA, no wheezing GI/Abd: soft, obese, mildly distended but not tympanic, mildly tender to deep palpation in suprapubic region, otherwise nontender throughout to palpation and percussion, no prior scars noted MSK: extremities warm, no notable edema Neuro: alert, sleepy, no focal deficits LABS: Recent Labs 02/15/2152902/14/21 0400 02/13/21 0420 02/12/21 0926 02/11/21 0450 WBC 11.9* 9.8* 13.7* 13.1* 12.7* HGB 11.2* 9.7* 10.5* 9.8* 8.9* HCT 33.7* 28.5* 31.5* 29.0* 26.1* PLATELET 418* 355 383* 331 275 NEUTROABS -- -- -- 10.91* 10.77* Recent Labs 02/15/2152902/14/21 0400 02/13/21 0420 NA 139 136 138 K 5.0 4.3 4.3 CL 103 104 104 CO2 BUN 10 8* 6* CREATININE 0.70* 0.71* 0.68* Recent Labs 02/15/2152902/14/21 0400 02/13/21 0420 02/10/21 0417 CALCIUM 9.1 8.3* 8.2* 7.9* MAGNESIUM -- -- -- 0.82 PHOS -- 3.3 -- -- Recent Labs 02/12/21925 GLUCOSE 190 Recent Labs 02/15/2152902/14/21 0400 02/13/21 0420 02/11/21 0450 02/10/21 0417 02/09/21 0440 AST 78* 20 32 24 21 24 ALT 101* 34 53 27 26 34 ALKPHOS 308* 113 142* 90 83 78 BILITOT 0.3 0.3 0.4 0.4 0.5 0.6 BILIDIR -- -- -- 0.2 0.2 0.2 No results for input(s): INR, PT, PTT in the last 168 hours. MICRO: No new results. (BCx from OSH with no growth) IMAGING/DIAGNOSTICS: CT A/P 02/10/2021 1. Similar appearance of necrotizing pancreatitis with mild interval increase in edema and fluid inthe lesser sac. 2. Evidence of [place] and Kevin sign. 3. Interval enlargement of gallbladder. Ptotic gallbladder. Cannot rule out cholecystitis. MRCP 02/13: 1. Ongoing necrotizing pancreatitis with acute peripancreatic fluid collections, the largest of which extends into the gastrosplenic ligament. 2. The pancreatic and common bile ducts are intact. 3. Choledocholithiasis within the caudal common bile duct. No biliary ductal dilatation. 4. Cholelithiasis and hydropic gallbladder. ASSESSMENT: Pancho Babb is a 55 y.o. male with HTN, T2DM, and prior nephrolithiasis who is admitted with gallstone pancreatitis. General Surgery was consulted for increasing size of peripancreatic fluid collection with concern for infection. Given his clinical stability, would not offer an operation at this time. If he develops hemodynamic instability and/or fever, would first work up other possible sources of infection then, if unrevealing, would consider endoscopic drainage of the fluid collection. He is endorsing improved pain this morning after regular diet, mentions getting discharged today. His labs are improved, but he still needs definitive management. RECOMMENDATIONS: ?? Continue to monitor I/O, serial abdominal exams, labs, toleration of diet/ ?? ERCP to be done in an outpatient setting per GI. Follow up in General Surgery clinic in 4-6 weeks if patient gets discharged for further management. ?? Please page #[phone] with questions or concerns. Dasia Renteria MD Consult pager #[phone] 02/15/2021 9:40 AM * Imtiaz Whatley MD - 02/14/2021 5:33 PM EDT Hospital Medicine Attending Daily Progress Note Admit Date: 02/04/2021 Hospital Day 10 days Active Hospital Problems Diagnosis ??? Hypertensive crisis ??? Gallstone pancreatitis ??? Insulin resistance (high c-peptide 8.2 on 08/12/18 and low HDL 34) ??? Diabetes mellitus diagnosed at age 49 (A1c 6.8% in Jun 2015) ??? Hypertension ??? Obesity ??? Hypokalemia Resolved Hospital Problems Diagnosis Date Resolved ??? Acute respiratory failure 02/05/2021 ??? GRICELDA (acute kidney injury) 02/06/2021 PMH Active Non-Hospital Problems Diagnosis ??? Vitamin D deficiency ??? Adrenal nodule Inpatient Medications: Scheduled ??? ibuprofen 600 mg Oral Q8H ??? bisacodyL 10 mg Rectal Daily ??? insulin lispro 0-8 Units Subcutaneous TID WC ??? amLODIPine 5 mg Oral Daily ??? lisinopriL 20 mg Oral Daily ??? spironolactone 25 mg Oral BID ??? traZODone 100 mg Oral Nightly ??? acetaminophen 975 mg Oral Q8H ??? insulin glargine 15 Units Subcutaneous Nightly ??? insulin lispro 1-6 Units Subcutaneous TID AC ??? enoxaparin 40 mg Subcutaneous Nightly ??? polyethylene glycoL (MIRALAX) oral powder 17 g Oral BID ??? aspirin 81 mg Oral Daily ??? senna-docusate 1 tablet Oral BID ??? sodium chloride 0.9 % (flush) 5 mL Intravenous BID ??? lidocaine 3 patch Transdermal Q24H And ??? lidocaine 3 patch Transdermal Q24H Continuous infusions: PRN: oxyCODONE, LORazepam, albuteroL, iohexoL, cyclobenzaprine, sodium chloride 0.9 % (flush), lidocaine Interval History: - no acute overnight events - he tells me that his pain continues to improve slightly. He is willing to space out his oxycodonedoses and to decrease the dose from 10 mg to 5 mg. He denies any further chills. He continues to have regular stools, which are loose ROS: A full 14-point review of systems was conducted and is negative except as noted above Physical Exam Vitals Range last 24 hrs Temperature Temp: [36.7 ??C (98.1 ??F)-37.2 ??C (99 ??F)] Heart Rate Heart Rate: -- Blood Pressure BP: (130-171)/(73-100) Respiratory Rate Resp: [17-20] SpO2 SpO2: [91 %-97 %] Intake/Output Summary (Last 24 hours) at 02/14/2021 1733 Last data filed at 02/14/2021 1600 Gross per 24 hour Intake 365 ml Output 3050 ml Net -2685 ml Patient Vitals for the past 168 hrs: Weight 02/10/21 0630 108.9 kg (240 lb 1.3 oz) Body mass index is 34.76 kg/m??. GEN: obese man, no distress this morning HEENT: MMM CARDS: RRR, no murmur noted PULM: CTAB posterior lung aldridge ABD: soft, mild distension. Abdominal pain is not worse on palpation EXT: no LE edema SKIN: no rash noted NEURO: awake and conversant. Moving around in bed with only mild difficulty due to pain Studies reviewed in eDH. Remarkable for the following: LABS: Last 3 wbc, hgb, hct plt Recent Labs 02/14/21 0400 02/13/21 0420 02/12/21 0926 WBC 9.8* 13.7* 13.1* HGB 9.7* 10.5* 9.8* HCT 28.5* 31.5* 29.0* PLATELET 355 383* 331 Last 3 Lytes Recent Labs 02/14/21 0400 02/13/21 0420 02/12/21 0926 NA 136 138 139 K 4.3 4.3 4.0 CL 104 104 106 CO2 25 26 25 BUN 8* 6* 5* CREATININE 0.71* 0.68* 0.74* Last 3 LFTs Recent Labs 02/14/21 0400 02/13/21 0420 02/12/21 0926 02/11/21 0450 02/10/21 0417 02/09/21 0440 AST 20 32 60* 24 21 24 ALT 34 53 56* 27 26 34 ALKPHOS 113 142* 153* 90 83 78 BILITOT 0.3 0.4 0.5 0.4 0.5 0.6 BILIDIR -- -- -- 0.2 0.2 0.2 FSBG Trend Recent Labs 02/14/21 1710 02/14/21 1159 02/14/21 0828 02/13/21 2108 02/13/21 1559 02/13/21 1205 02/13/21 0814 02/12/21 2013 02/12/21 1640 02/12/21 1145 POCGLU 133 229* 112 214* 136 153 175 230* 194 147 MICRO: No results for input(s): URINECULTURE in the last 720 hours. No results for input(s): GRAMSTAIN, BFCX, LOWERRESPCX, TISSUECX in the last 720 hours. Recent Labs 02/04/21 1230 02/04/21 1257 02/10/21 1839 02/10/21 1852 BLOODCX No growth at 5 days. No growth at 5 days. No growth at 3 days. No growth at 3 days. ECG: Recent Labs 02/05/21 1649 DIAGLINE Sinus tachycardia with Premature atrial complexes with Aberrant conduction Abnormal ECG When compared with ECG of 04-FEB-2021 12:42, Aberrant conduction is now Present Confirmed by MD Kermit, Gary ([id number]) on 02/06/2021 2:56:26 PM QTCCALC 462 VASCULAR: No results for input(s): VBTEXTRPT in the last 720 hours. IMAGING: Results for orders placed or performed during the hospital encounter of 02/04/21 XR Chest One View (Exam End: 02/04/2021 12:51 PM) Impression New endotracheal tube placement since the previous study, tip approximately 7 cm above the fide. Nasogastric tube, tip in stomach No other interval change. Hypoinflation. LEFT basilar focal atelectasis and/or pneumonia. Thank you for letting us participate in the care of this patient. If you are a health care provider and have any questions regarding this report, please contact the number below. For patients who have questions please contact the health live in caregiver that requested your imaging first. Electronically signed by: Aniket Medina MD, [facility] ([phone]), at 02/04/2021 1:19 PM XR Abdomen 1 view (Generic) (Exam End: 02/04/2021 12:51 PM) Impression FINDINGS/IMPRESSION: The enteric tube which appears over the region of the stomach on chest radiograph dated 02/04/2021 at 12:34 hours is not seen on this exam obtained 2 minutes later. If the enteric tube was not manipulated between these 2 studies it is likely that the [id number] of this study does not include the enteric tube positioned in the upper abdomen. If the enteric tube was manipulated then it's position is unknown. Stool in the ascending colon and cecum. I have personally reviewed the image(s) and the resident's interpretation and agree with the findings, Ruslan Quintanilla MD at 02/04/2021 2:31 PM Thank you for letting us participate in the care of this patient. If you are a health care provider and have any questions regarding this report, please contact the number below. For patients who have questions please contact the health live in caregiver that requested your imaging first. Electronically signed by: Ruslan Quintanilla MD, [facility] ([phone]), at 02/04/2021 2:31 PM XR Chest PA & Lateral (Generic) (Exam End: 02/06/2021 9:10 PM) Impression Improved bibasilar atelectasis. Very small pleural effusions. Thank you for letting us participate in the care of this patient. If you are a health care provider and have any questions regarding this report, please contact the number below. For patients who have questions please contact the health live in caregiver that requested your imaging first. Electronically signed by: Daisy Larsen MD, [facility] ([phone]), at 02/07/2021 8:[address] Abdomen & Pelvis w Contrast (Exam End: 02/07/2021 11:22 PM) Impression 1. Necrotizing pancreatitis. 2. Interval necrosis of pancreatic segments as described in the body the report without ductal dilation concerning for duct disruption. 3. Progression of peripancreatic edema and inflammatory stranding and ascites. 4. Cholesterol stones evident in the gallbladder. Thank you for letting us participate in the care of this patient. If you are a health care provider and have any questions regarding this report, please contact the number below. For patients who have questions please contact the health live in caregiver that requested your imaging first. Electronically signed by: Deepika Ramsey MD, [facility] ([phone]), at 02/08/2021 10:43 AM XR Chest One View (Exam End: 02/08/2021 11:15 PM) Impression Low lung volume exam with evidence of bibasilar effusion and or airless lung. Thank you for letting us participate in the care of this patient. If you are a health care provider and have any questions regarding this report, please contact the number below. For patients who have questions please contact the health live in caregiver that requested your imaging first. Electronically signed by: Wyatt Mitchell MD, [facility] ([phone]), at 02/09/2021 1:[address] Abdomen w Contrast (Exam End: 02/10/2021 10:50 PM) Impression 1. Similar appearance of necrotizing pancreatitis with mild interval increase in edema and fluid in the lesser sac. 2. Evidence of [place] Turn[place] and [place] sign. 3. Interval enlargement of gallbladder. Ptotic gallbladder. Cannot rule out cholecystitis. Thank you for letting us participate in the care of this patient. If you are a health care provider and have any questions regarding this report, please contact the number below. For patients who have questions please contact the health live in caregiver that requested your imaging first. Electronically signed by: Wyatt Mitchell MD, [facility] ([phone]), at 02/11/2021 1:10 AM MRI Cholangiopancreatography (Exam End: 02/13/2021 7:01 PM) Impression 1. Ongoing necrotizing pancreatitis with acute peripancreatic fluid collections, the largest of which extends into the gastrosplenic ligament. 2. The pancreatic and common bile ducts are intact. 3. Choledocholithiasis within the caudal common bile duct. No biliary ductal dilatation. 4. Cholelithiasis and hydropic gallbladder. I have personally reviewed the image(s) and the resident's interpretation and agree with the findings, Sal Walton DO at 02/14/2021 9:01 AM Thank you for letting us participate in the care of this patient. If you are a health care provider and have any questions regarding this report, please contact the number below. For patients who have questions please contact the health live in caregiver that requested your imaging first. Electronically signed by: Sal Walton DO, [facility] ([phone]), at 02/14/2021 9:01 AM Assessment: 55-year-old male with diabetes, hypertension due to hyperaldosteronism, and history of alcohol use disorder accepted in transfer from [facility] with gallstone pancreatitis complicated by ascending cholangitis, acute kidney injury, acute respiratory failure requiring intubation and transferred to our facility. ??It appears in the interim he passed his gallstone which was the presumed etiology of all of the above, he was extubated easily. His course was complicated by fevers and worseningabdominal pain, for which GI and general surgery were consulted, although at this time no further procedures are recommended. Plan: #acute gallstone pancreatitis: with necrotizing pancreatitis seen on 02/08/21 CT scan. BUN dropped from 25 on admission to 8 after fluid resuscitation. Pain has been improving slowly throughout his hospital stay. Last fever on 02/11; given absence of infected necrosis on CT, negative blood cultures, non-obstructive LFTs, and no other source of fever the most likely cause is inflammation from known pancreatitis - appreciate general surgery consult. No role for surgical intervention at present - appreciate GI recs. MRCP does not show biliary duct disruption. Plan for outpatient ERCP - regular diet, low fat - pip-tazo stopped after 48 hours of negative blood cultures and no other source of infection found(02/10 - 02/12). UA and culture ordered but less likely given absence of urinary symptoms - BIT consult to help with coping skills around painful illness and complex social dynamics - poor pain control with IV opiates alone. Current pain regimen: - 5-10 mg PO oxycodone q3 hours PRN - no further IV pain medication - scheduled Tylenol - PRN ibuprofen - PRN cyclobenzaprine #uncontrolled HTN: resolved. Back on home medications - lisinopril to 20 mg daily - spironolactone 25 mg BID - amlodipine 5 mg #concern for cholangitis: fevers on admission, although no significant LFT abnormalities. No positive culture data. I called [facility] on 02/08/21 and confirmed that blood cultures were negative at 120 hours - antibiotics initially stopped 02/08/21 #T2DM - insulin glargine 15 units nightly - sliding scale moderate correction - mealtime correction DIET: regular ACCESS: PIV LINES/TUBES: none Ppx: LMWH CODE: full FAMILY UPDATE: spoke with Pratima 02/13/21, 02/14 LABS: daily DISPO: anticipate home pending improvement in abdominal pain and additional work up for fevers Team Pager( Coverage 11/01): #[phone] PCP: Peña Turner DO [phone] Attestation: IPI Certification I certify that I am a [facility] credentialed attending provider with admitting privileges and that the patient meets or has met medical necessity to require an inpatient IPI level of care meeting a minimumof two midnights or is on the [facility] inpatient only procedure list (status C) due to: uncontrolled pain requiring titration of medications to achieve optimal effect and to minimize immediate or severe side effects Imtiaz Whatley MD 02/14/2021 * Dasia Rosa MD - 02/14/2021 11:[address] [facility] Department of Surgery Inpatient Consult Note Reason for Consult: pancreatic necrosis with fluid collection on CT HPI: Pancho Babb is a 55 y.o. male with a PMH of HTN, T2DM, obesity, and nephrolithiasis who was admitted critically ill 10 days ago with gallstone pancreatitis. He was overall improving with supportive management of IV fluids and pain control, nearing discharge home with plan for ERCP in 4-6 weeks f/b cholecystectomy. However, he became febrile overnight (Tmax 38.8) so CT scan was obtained which showed persistent severe necrotizing pancreatitis with worsening edema and enlarged fluid collection in the lesser sac. He is hemodynamically normal. He endorses severe back pain that is unchanged over the past few daysand mild intermittent pain in the lower quadrants. He is tolerating a full liquid diet without N/V and is passing flatus, though he has not had a normal bowel movement since prior to admission per his report. He otherwise denies chest pain, shortness of breath, dizziness, or changes in his urinary habits. PMH: - HTN - T2DM - obesity - nephrolithiasis PSH: - back surgery No prior abdominal surgeries. Past Surgical History: Procedure Laterality Date ??? PRO COLONOSCOPY, DIAGNOSTIC N/A 01/14/2016 COLONOSCOPY, DIAGNOSTIC performed by Ruslan Taylor MD at [facility] ENDOSCOPY MEDS: Current Outpatient Medications on File Prior to Encounter Medication Sig Dispense Refill ??? metFORMIN XR (Glucophage XR) 500 mg Tablet Sustained Release 24 hr Take 3 tablets by mouth daily. 270 tablet 3 ??? ergocalciferoL, vitamin D2, (vitamin D) 50,000 unit Capsule Take 1 capsule by mouth once a week. 13 capsule 4 ??? metFORMIN (FORTAMET) 500 mg Tablet Extended Rel 24 hr Take 2 tablets by mouth daily. 270 tablet4 ??? spironolactone (ALDACTONE) 25 mg Tablet TAKE ONE TABLET BY MOUTH TWICE A DAY 180 tablet 3 ??? amLODIPine (NORVASC) 5 mg Tablet 5 mg daily. ??? lisinopril (PRINIVIL;ZESTRIL) 20 mg Tablet Take 20 mg by mouth daily. ??? aspirin 81 mg Tablet, Delayed Release (E.C.) Take 81 mg by mouth daily. ALL: No Known Allergies FHx: Denies family history of bleeding or clotting disorders. SHx: Socioeconomic History ??? Marital status: Occupational History ??? 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 Smoking status: Never Smoker ??? Smokeless tobacco: Never Used Vaping Use ??? Vaping Use: Never used Substance and Sexual Activity ??? Alcohol use: Yes Comment: occasionally, weekly 2-6 drinks at once ??? Drug use: No ROS: A 10-point review of systems was negative except as noted in HPI. VITALS: Patient Vitals for the past 24 hrs: Temp Heart Rate From SP02 Resp BP SpO2 O2 Device 02/13/21 1604 36.6 ??C (97.9 ??F) 93 bpm 20 (!) 140/91 96 % RA 02/13/211 -- -- -- 140/88 -- -- 02/13/21 2048 36.8 ??C (98.2 ??F) 87 bpm 20 140/88 91 % RA 02/14/21 0403 36.8 ??C (98.2 ??F) 91 bpm 18 135/73 95 % -- 02/14/21 0823 37.2 ??C (99 ??F) 89 bpm 17 (!) 171/91 96 % RA EXAM: Gen: NAD, resting comfortably in bed, conversant HEENT: MMM, no scleral icterus CV: sinus tachycardia to 100s, normotensive on monitor, pulses 2+ b/l (radial, DP) Pulm: unlabored breathing on RA, no wheezing GI/Abd: soft, obese, mildly distended but not tympanic, mildly tender to deep palpation in suprapubic region, otherwise nontender throughout to palpation and percussion, no prior scars noted MSK: extremities warm, no notable edema Neuro: alert, sleepy, no focal deficits LABS: Recent Labs 02/14/21 0400 02/13/21 0420 02/12/21 0926 02/11/21 0450 02/07/21 1357 WBC 9.8* 13.7* 13.1* 12.7* 13.7* HGB 9.7* 10.5* 9.8* 8.9* 11.4* HCT 28.5* 31.5* 29.0* 26.1* 32.5* PLATELET 355 383* 331 275 154 NEUTROABS -- -- 10.91* 10.77* 11.25* Recent Labs 02/14/21 0400 02/13/21 0420 02/12/21 0926 NA 136 138 139 K 4.3 4.3 4.0 CL 104 104 106 CO2 25 BUN 8* 6* 5* CREATININE 0.71* 0.68* 0.74* Recent Labs 02/14/21 0400 02/13/21 04202/12/21 0902/10/21 0417 02/07/21 1357 CALCIUM 8.3* 8.2* 8.1* 7.9* 7.9* MAGNESIUM -- -- -- 0.82 0.75 PHOS 3.3 -- -- -- 2.3* Recent Labs 02/12/21 0926 02/07/21 1357 GLUCOSE 190 278* Recent Labs 02/14/21 0400 02/13/21 0420 02/12/21 0926 02/11/21 0450 02/10/21 0417 02/09/21 0440 AST 20 32 60* 24 21 24 ALT 34 53 56* 27 26 34 ALKPHOS 113 142* 153* 90 83 78 BILITOT 0.3 0.4 0.5 0.4 0.5 0.6 BILIDIR -- -- -- 0.2 0.2 0.2 No results for input(s): INR, PT, PTT in the last 168 hours. MICRO: No new results. (BCx from OSH with no growth) IMAGING/DIAGNOSTICS: CT A/P 02/10/2021 1. Similar appearance of necrotizing pancreatitis with mild interval increase in edema and fluid inthe lesser sac. 2. Evidence of [place] and [place] sign. 3. Interval enlargement of gallbladder. Ptotic gallbladder. Cannot rule out cholecystitis. MRCP 02/13: 1. Ongoing necrotizing pancreatitis with acute peripancreatic fluid collections, the largest of which extends into the gastrosplenic ligament. 2. The pancreatic and common bile ducts are intact. 3. Choledocholithiasis within the caudal common bile duct. No biliary ductal dilatation. 4. Cholelithiasis and hydropic gallbladder. ASSESSMENT: Pancho Babb is a 55 y.o. male with HTN, T2DM, and prior nephrolithiasis who is admitted with gallstone pancreatitis. General Surgery was consulted for increasing size of peripancreatic fluid collection with concern for infection. Given his clinical stability, would not offer an operation at this time. If he develops hemodynamic instability and/or fever, would first work up other possible sources of infection then, if unrevealing, would consider endoscopic drainage of the fluid collection. He is endorsing improved pain this morning on his current regimen, was agreeing that he needed to stay in the hospital for continued care. MRCP with acute pancreatic fluid collections. RECOMMENDATIONS: ?? Will need close watching for pain and temp with restarting a diet, serial abdominal exam. ?? MRCP done, ERCP to be done in an outpatient setting per GI. ?? Consider supportive care with IV fluids, pain control. Okay to advance diet as tolerated, as early enteral feeding improves outcomes in pancreatitis. ?? General Surgery will continue to follow. Please page #[phone] with questions or concerns. Dasia Renteria MD Consult pager #[phone] 02/14/2021 11:32 AM * Nahid Shah MD - 02/14/2021 10:55 AM EDT Images from the original note were not included. DIVISION OF GASTROENTEROLOGY & HEPATOLOGY CONSULT PROGRESS NOTE NAME: Pancho Babb : 1965 INTERVAL: -MRCP completed last night which shows ongoing necrotizing pancreatitis with acute peripancreatic fluid collections. The PD and CBD are intact. Choledocholithiasis the visualized with no duct dilation. Cholelithiasis and hydropic gallbladder. -The patient continues to improve daily and endorses an appetite with improved pain this morning. -Afebrile, HDS, WNL -CBC: WBC 9.8, Hgb 9.7, PLT 355. BMP and LFTs stable. Past Medical History, Surgical History, Family History, Social History as noted in initial consult note MEDICATIONS: Scheduled: ??? ibuprofen 600 mg Oral Q8H ??? bisacodyL 10 mg Rectal Daily ??? insulin lispro 0-8 Units Subcutaneous TID WC ??? amLODIPine 5 mg Oral Daily ??? lisinopriL 20 mg Oral Daily ??? spironolactone 25 mg Oral BID ??? traZODone 100 mg Oral Nightly ??? acetaminophen 975 mg Oral Q8H ??? insulin glargine 15 Units Subcutaneous Nightly ??? insulin lispro 1-6 Units Subcutaneous TID AC ??? enoxaparin 40 mg Subcutaneous Nightly ??? polyethylene glycoL (MIRALAX) oral powder 17 g Oral BID ??? aspirin 81 mg Oral Daily ??? senna-docusate 1 tablet Oral BID ??? sodium chloride 0.9 % (flush) 5 mL Intravenous BID ??? lidocaine 3 patch Transdermal Q24H And ??? lidocaine 3 patch Transdermal Q24H Drips: PRN: LORazepam, oxyCODONE, albuteroL, iohexoL, cyclobenzaprine, sodium chloride 0.9 % (flush), lidocaine No Known Allergies VITALS: T Temp: [36.6 ??C (97.9 ??F)-37.2 ??C (99 ??F)] HR Heart Rate: -- BP BP: (135-171)/(73-91) RR Resp: [17-20] SpO2 SpO2: [91 %-96 %] IO 02/13 0701 - 02/14 0700 In: 360 [P.O.:360] Out: 1830 [Urine:1830] Wt Last 108.9 kg (240 lb 1.3 oz) Admit 110.7 kg PHYSICAL EXAM: GEN: Awake, alert, oriented, no acute distress HEENT: sclerae anicteric, moist mucous membranes RESP: Air entry equal bilaterally, no obvious rales/rhonchi CARDIAC: RRR, normal S1/S2, no appreciable murmurs ABDOMEN: Soft, non-tender, non-distended, normoactive bowel sounds EXTREM: Warm, no edema NEURO: Grossly intact, moves all extremities SKIN:No jaundice LABS: CBC: Recent Labs 02/14/21 0400 02/13/21 04202/12/21 0926 02/11/21 0450 02/10/21 0417 02/09/21 0440 02/08/21 0829 02/07/21 1357 WBC 9.8* 13.7* 13.1* 12.7* 15.0* 14.8* 13.4* 13.7* HGB 9.7* 10.5* 9.8* 8.9* 9.1* 9.5* 10.9* 11.4* HCT 28.5* 31.5* 29.0* 26.1* 26.7* 27.9* 31.0* 32.5* PLATELET 355 383* 331 275 228 181 133* 154 MCV 92.2 92.1 92.4 91.6 91.1 90.0 89.1 89.0 RDWCV 13.3 13.5 13.6 13.7 13.6 13.5 13.7 13.4 COAG: No results for input(s): PTT, INR in the last 168 hours. CHEM: Recent Labs 02/14/2139902/13/21 04202/12/21 0902/11/21 0450 02/10/21 0417 02/09/21 0440 02/08/21 0829 02/07/21 1357 GLUCOSE -- -- 190 -- -- -- -- 278* NA 136 138 139 140 137 136 137 137 K 4.3 4.3 4.0 3.5 3.2* 3.2* 3.6 3.3* CL 104 104 106 105 100 100 103 102 CO2 25 26 25 27 24 25 23 BUN 8* 6* 5* 8* 13 11 8* 10 CREATININE 0.71* 0.68* 0.74* 0.74* 0.79* 0.70* 0.50* 0.61* ALBUMIN 2.8* 3.1* 2.9* 2.5* 2.5* 2.4* -- 2.9* MAGNESIUM -- -- -- -- 0.82 -- -- 0.75 CALCIUM 8.3* 8.2* 8.1* 7.9* 7.9* 7.7* 7.6* 7.9* HEPATIC: Recent Labs 02/14/2139902/13/21 0420 02/12/21 0926 02/11/21 0450 02/10/21 0417 02/09/21 0440 02/07/21 1357 ALKPHOS 113 142* 153* 90 83 78 88 ALT 34 53 56* 27 26 34 41 AST 20 32 60* 24 21 24 36 BILITOT 0.3 0.4 0.5 0.4 0.5 0.6 0.9 BILIDIR -- -- -- 0.2 0.2 0.2 -- LIPASE -- -- -- -- -- -- 91* INFLAMM: No results for input(s): CRP in the last 168 hours. Invalid input(s): ESR IMAGING: Images and reports personally reviewed in e[facility] MRI Cholangiopancreatography Final Result 1. Ongoing necrotizing pancreatitis with acute peripancreatic fluid collections, the largest of which extends into the gastrosplenic ligament. 2. The pancreatic and common bile ducts are intact. 3. Choledocholithiasis within the caudal common bile duct. No biliary ductal dilatation. 4. Cholelithiasis and hydropic gallbladder. I have personally reviewed the image(s) and the resident's interpretation and agree with the findings, Sal Walton DO at 02/14/2021 9:01 AM Thank you for letting us participate in the care of this patient. If you are a health care provider and have any questions regarding this report, please contact the number below. For patients who have questions please contact the health live in caregiver that requested your imaging first. Electronically signed by: Sal Walton DO, [facility] ([phone]), at 02/14/2021 9:[address] Abdomen w Contrast Final Result 1. Similar appearance of necrotizing pancreatitis with mild interval increase in edema and fluid in the lesser sac. 2. Evidence of [place] Turners and Kevin sign. 3. Interval enlargement of gallbladder. Ptotic gallbladder. Cannot rule out cholecystitis. Thank you for letting us participate in the care of this patient. If you are a health care provider and have any questions regarding this report, please contact the number below. For patients who have questions please contact the health live in caregiver that requested your imaging first. Electronically signed by: Wyatt Mitchell MD, [facility] ([phone]), at 02/11/2021 1:10 AM XR Chest One View Final Result Low lung volume exam with evidence of bibasilar effusion and or airless lung. Thank you for letting us participate in the care of this patient. If you are a health care provider and have any questions regarding this report, please contact the number below. For patients who have questions please contact the health live in caregiver that requested your imaging first. Electronically signed by: Wyatt Mitchell MD, [facility] ([phone]), at 02/09/2021 1:[address] Abdomen & Pelvis w Contrast Final Result 1. Necrotizing pancreatitis. 2. Interval necrosis of pancreatic segments as described in the body the report without ductal dilation concerning for duct disruption. 3. Progression of peripancreatic edema and inflammatory stranding and ascites. 4. Cholesterol stones evident in the gallbladder. Thank you for letting us participate in the care of this patient. If you are a health care provider and have any questions regarding this report, please contact the number below. For patients who have questions please contact the health live in caregiver that requested your imaging first. Electronically signed by: Deepika Ramsey MD, [facility] ([phone]), at 02/08/2021 10:43 AM XR Chest PA & Lateral (Generic) Final Result Improved bibasilar atelectasis. Very small pleural effusions. Thank you for letting us participate in the care of this patient. If you are a health care provider and have any questions regarding this report, please contact the number below. For patients who have questions please contact the health live in caregiver that requested your imaging first. Electronically signed by: Daisy Larsen MD, [facility] ([phone]), at 02/07/2021 8:05 AM XR Chest One View Final Result New endotracheal tube placement since the previous study, tip approximately 7 cm above the fide. Nasogastric tube, tip in stomach No other interval change. Hypoinflation. LEFT basilar focal atelectasis and/or pneumonia. Thank you for letting us participate in the care of this patient. If you are a health care provider and have any questions regarding this report, please contact the number below. For patients who have questions please contact the health live in caregiver that requested your imaging first. Electronically signed by: Aniket Medina MD, [facility] ([phone]), at 02/04/2021 1:19 PM XR Abdomen 1 view (Generic) Final Result FINDINGS/IMPRESSION: The enteric tube which appears over the region of the stomach on chest radiograph dated 02/04/2021 at 12:34 hours is not seen on this exam obtained 2 minutes later. If the enteric tube was not manipulated between these 2 studies it is likely that the [id number] of this study does not include the enteric tube positioned in the upper abdomen. If the enteric tube was manipulated then it's position is unknown. Stool in the ascending colon and cecum. I have personally reviewed the image(s) and the resident's interpretation and agree with the findings, Ruslan Quintanilla MD at 02/04/2021 2:31 PM Thank you for letting us participate in the care of this patient. If you are a health care provider and have any questions regarding this report, please contact the number below. For patients who have questions please contact the health live in caregiver that requested your imaging first. Electronically signed by: Ruslan Quintanilla MD, [facility] ([phone]), at 02/04/2021 2:31 PM ENDOSCOPY: Images and reports personally reviewed in e[facility] ASSESSMENT & PLAN: Pancho Babb is a 55 y.o. M w/PMH of alcohol use disorder, HTN, hypokalemia, and T2DM who was admitted with concern for gallstone pancreatitis and choledocholithiasis. Initially evaluated on 02/05 for gallstone pancreatitis, we deferred any urgent management as he remained HDS and instead planned on OP ERCP in 4-6 weeks. Since that time, he was improving with IVF and pain control with repeat scans notable for necrotizing pancreatitis with concern for duct disruption on CT scan, although updated MRCP shows intact PD. At this time, we would continue to recommend holding off on ERCP at this time, and deferring until the patient is more removed from his episode of acute pancreatitis. RECOMMENDATIONS: - Will defer ERCP to outpatient setting Patient seen with Dr. Ricardo. Nahid Shah MD PGY-4, Gastroenterology Associated attestation - Adonis Ricardo MD - 02/14/2021 11:17 AM EDT I have independently seen and examined the patient, and have reviewed the resident???s above note, and agree with the documented history, physical findings, and study results; my evaluation of the patient is below: I met with Mr Babb this morning in follow up and reviewed MRCP - does not appear to have a duct disruption, evolving acute inflammatory fluid collections, and choledocholithiasis with normal liver tests. Recommend continued medical management . Adonis Ricardo MD * Imtiaz Whatley MD - 02/13/2021 3:44 PM EDT Hospital Medicine Attending Daily Progress Note Admit Date: 02/04/2021 Hospital Day 9 days Active Hospital Problems Diagnosis ??? Hypertensive crisis ??? Gallstone pancreatitis ??? Insulin resistance (high c-peptide 8.2 on 08/12/18 and low HDL 34) ??? Diabetes mellitus diagnosed at age 49 (A1c 6.8% in Jun 2015) ??? Hypertension ??? Obesity ??? Hypokalemia Resolved Hospital Problems Diagnosis Date Resolved ??? Acute respiratory failure 02/05/2021 ??? GRICELDA (acute kidney injury) 02/06/2021 PMH Active Non-Hospital Problems Diagnosis ??? Vitamin D deficiency ??? Adrenal nodule Inpatient Medications: Scheduled ??? ibuprofen 600 mg Oral Q8H ??? bisacodyL 10 mg Rectal Daily ??? insulin lispro 0-8 Units Subcutaneous TID WC ??? amLODIPine 5 mg Oral Daily ??? lisinopriL 20 mg Oral Daily ??? spironolactone 25 mg Oral BID ??? traZODone 100 mg Oral Nightly ??? acetaminophen 975 mg Oral Q8H ??? insulin glargine 15 Units Subcutaneous Nightly ??? insulin lispro 1-6 Units Subcutaneous TID AC ??? enoxaparin 40 mg Subcutaneous Nightly ??? polyethylene glycoL (MIRALAX) oral powder 17 g Oral BID ??? aspirin 81 mg Oral Daily ??? senna-docusate 1 tablet Oral BID ??? sodium chloride 0.9 % (flush) 5 mL Intravenous BID ??? lidocaine 3 patch Transdermal Q24H And ??? lidocaine 3 patch Transdermal Q24H Continuous infusions: PRN: LORazepam, LORazepam, oxyCODONE, albuteroL, iohexoL, cyclobenzaprine, sodium chloride 0.9 % (flush), lidocaine Interval History: - no acute overnight events - this morning his abdominal complaints are stable. He has constant pain throughout his abdomen which seems worse to him when eating. He had a small bowel movement yesterday - later in the morning he was discussing leaving AMA as he was concerned about the safety of his mother. As of this writing he is willing to stay until medically ready - no other new complaints ROS: A full 14-point review of systems was conducted and is negative except as noted above Physical Exam Vitals Range last 24 hrs Temperature Temp: [36.9 ??C (98.4 ??F)-37.2 ??C (98.9 ??F)] Heart Rate Heart Rate: -- Blood Pressure BP: (152-157)/(88-89) Respiratory Rate Resp: [18-20] SpO2 SpO2: [94 %-97 %] Intake/Output Summary (Last 24 hours) at 02/13/2021 1544 Last data filed at 02/13/2021 1336 Gross per 24 hour Intake 1723 ml Output 3175 ml Net -1452 ml Patient Vitals for the past 168 hrs: Weight 02/10/21 0630 108.9 kg (240 lb 1.3 oz) Body mass index is 34.76 kg/m??. GEN: obese man, no distress this morning HEENT: MMM ABD: soft, mild distension. Abdominal pain is not worse on palpation EXT: no LE edema SKIN: no rash noted NEURO: awake and conversant. Moving around in bed with only mild difficulty due to pain Studies reviewed in e[facility]. Remarkable for the following: LABS: Last 3 wbc, hgb, hct plt Recent Labs 02/13/21 04202/12/21 0902/11/21 0450 WBC 13.7* 13.1* 12.7* HGB 10.5* 9.8* 8.9* HCT 31.5* 29.0* 26.1* PLATELET 383* 331 275 Last 3 Lytes Recent Labs 02/13/21 04202/12/21 0902/11/21 0450 NA 138 139 140 K 4.3 4.0 3.5 CL 104 106 105 CO2 26 25 27 BUN 6* 5* 8* CREATININE 0.68* 0.74* 0.74* Last 3 LFTs Recent Labs 02/13/21 0420 02/12/21 0926 02/11/21 0450 02/10/21 0417 02/09/21 0440 AST 32 60* 24 21 24 ALT 53 56* 27 26 34 ALKPHOS 142* 153* 90 83 78 BILITOT 0.4 0.5 0.4 0.5 0.6 BILIDIR -- -- 0.2 0.2 0.2 FSBG Trend Recent Labs 02/13/21 1205 02/13/21 0814 02/12/21 2013 02/12/21 1640 02/12/21 1145 02/12/21 0812 02/11/21 1949 02/11/21 1710 02/11/21 1151 02/11/21 0729 POCGLU 153 175 230* 194 147 162 243* 213* 156 147 MICRO: No results for input(s): URINECULTURE in the last 720 hours. No results for input(s): GRAMSTAIN, BFCX, LOWERRESPCX, TISSUECX in the last 720 hours. Recent Labs 02/04/21 1230 02/04/21 1257 02/10/21 1839 02/10/21 1852 BLOODCX No growth at 5 days. No growth at 5 days. No growth at 2 days. No growth at 2 days. ECG: Recent Labs 02/05/21 1649 DIAGLINE Sinus tachycardia with Premature atrial complexes with Aberrant conduction Abnormal ECG When compared with ECG of 04-FEB-2021 12:42, Aberrant conduction is now Present Confirmed by MD Kermit, Gary ([id number]) on 02/06/2021 2:56:26 PM QTCCALC 462 VASCULAR: No results for input(s): VBTEXTRPT in the last 720 hours. IMAGING: Results for orders placed or performed during the hospital encounter of 02/04/21 XR Chest One View (Exam End: 02/04/2021 12:51 PM) Impression New endotracheal tube placement since the previous study, tip approximately 7 cm above the fide. Nasogastric tube, tip in stomach No other interval change. Hypoinflation. LEFT basilar focal atelectasis and/or pneumonia. Thank you for letting us participate in the care of this patient. If you are a health care provider and have any questions regarding this report, please contact the number below. For patients who have questions please contact the health live in caregiver that requested your imaging first. Electronically signed by: Aniket Medina MD, [facility] ([phone]), at 02/04/2021 1:19 PM XR Abdomen 1 view (Generic) (Exam End: 02/04/2021 12:51 PM) Impression FINDINGS/IMPRESSION: The enteric tube which appears over the region of the stomach on chest radiograph dated 02/04/2021 at 12:34 hours is not seen on this exam obtained 2 minutes later. If the enteric tube was not manipulated between these 2 studies it is likely that the [id number] of this study does not include the enteric tube positioned in the upper abdomen. If the enteric tube was manipulated then it's position is unknown. Stool in the ascending colon and cecum. I have personally reviewed the image(s) and the resident's interpretation and agree with the findings, Ruslan Quintanilla MD at 02/04/2021 2:31 PM Thank you for letting us participate in the care of this patient. If you are a health care provider and have any questions regarding this report, please contact the number below. For patients who have questions please contact the health live in caregiver that requested your imaging first. Electronically signed by: Ruslan Quintanilla MD, [facility] ([phone]), at 02/04/2021 2:31 PM XR Chest PA & Lateral (Generic) (Exam End: 02/06/2021 9:10 PM) Impression Improved bibasilar atelectasis. Very small pleural effusions. Thank you for letting us participate in the care of this patient. If you are a health care provider and have any questions regarding this report, please contact the number below. For patients who have questions please contact the health live in caregiver that requested your imaging first. Electronically signed by: Daisy Larsen MD, [facility] ([phone]), at 02/07/2021 8:[address] Abdomen & Pelvis w Contrast (Exam End: 02/07/2021 11:22 PM) Impression 1. Necrotizing pancreatitis. 2. Interval necrosis of pancreatic segments as described in the body the report without ductal dilation concerning for duct disruption. 3. Progression of peripancreatic edema and inflammatory stranding and ascites. 4. Cholesterol stones evident in the gallbladder. Thank you for letting us participate in the care of this patient. If you are a health care provider and have any questions regarding this report, please contact the number below. For patients who have questions please contact the health live in caregiver that requested your imaging first. Electronically signed by: Deepika Ramsey MD, [facility] ([phone]), at 02/08/2021 10:43 AM XR Chest One View (Exam End: 02/08/2021 11:15 PM) Impression Low lung volume exam with evidence of bibasilar effusion and or airless lung. Thank you for letting us participate in the care of this patient. If you are a health care provider and have any questions regarding this report, please contact the number below. For patients who have questions please contact the health live in caregiver that requested your imaging first. Electronically signed by: Wyatt Mitchell MD, [facility] ([phone]), at 02/09/2021 1:[address] Abdomen w Contrast (Exam End: 02/10/2021 10:50 PM) Impression 1. Similar appearance of necrotizing pancreatitis with mild interval increase in edema and fluid in the lesser sac. 2. Evidence of [place] Turners and Kevin sign. 3. Interval enlargement of gallbladder. Ptotic gallbladder. Cannot rule out cholecystitis. Thank you for letting us participate in the care of this patient. If you are a health care provider and have any questions regarding this report, please contact the number below. For patients who have questions please contact the health live in caregiver that requested your imaging first. Electronically signed by: Wyatt Mitchell MD, [facility] ([phone]), at 02/11/2021 1:10 AM Assessment: 55-year-old male with diabetes, hypertension due to hyperaldosteronism, and history of alcohol use disorder accepted in transfer from [facility] with gallstone pancreatitis complicated by ascending cholangitis, acute kidney injury, acute respiratory failure requiring intubation and transferred to our facility. ??It appears in the interim he passed his gallstone which was the presumed etiology of all of the above, he was extubated easily. He remains in the hospital for further workup of fevers and persistent abdominal symptoms for which an MRCP has been ordered. Plan: #acute gallstone pancreatitis: with necrotizing pancreatitis seen on 02/08/21 CT scan. BUN dropped from 25 on admission to 8 after fluid resuscitation. Pain has been improving with the addition of regular oral pain medication. Now with intermittent fevers but without evidence of infected necrosis onCT abdomen, non- obstructive LFTs, unlikely cholecystitis based on exam findings - appreciate general surgery consult. No role for surgical intervention at present - appreciate GI recs. Recent CT abdomen raises the possibility of biliary duct disruption, which would require ERCP and stenting. MRCP ordered to confirm - continue full liquid for now - pip-tazo stopped after 48 hours of negative blood cultures and no other source of infection found(02/10 - 02/12). UA and culture ordered but less likely given absence of urinary symptoms - poor pain control with IV opiates alone. Current pain regimen: - 10 mg PO oxycodone q3 hours PRN - no further IV pain medication - scheduled Tylenol - PRN ibuprofen - PRN cyclobenzaprine - I offered BIT consult today given likely element of anxiety worsening his known pancreatitis pain. He declined but will continue to offer #uncontrolled HTN: resolved - lisinopril to 20 mg daily - spironolactone 25 mg BID - amlodipine 5 mg #concern for cholangitis: fevers on admission, although no significant LFT abnormalities. No positive culture data. I called [facility] on 02/08/21 and confirmed that blood cultures were negative at 120 hours - antibiotics initially stopped 02/08/21 #T2DM - insulin glargine 15 units nightly - sliding scale moderate correction - mealtime correction DIET: full liquid ACCESS: PIV LINES/TUBES: none Ppx: LMWH CODE: full FAMILY UPDATE: spoke with Pratima 02/13/21 LABS: daily DISPO: anticipate home pending improvement in abdominal pain and additional work up for fevers Team Pager( Coverage 11/01): #[phone] PCP: Peña Turner DO [phone] Attestation: IPI Certification I certify that I am a [facility] credentialed attending provider with admitting privileges and that the patient meets or has met medical necessity to require an inpatient IPI level of care meeting a minimumof two midnights or is on the [facility] inpatient only procedure list (status C) due to: uncontrolled pain requiring titration of medications to achieve optimal effect and to minimize immediate or severe side effects Imtiaz Whatley MD 02/13/2021 * Georgia Conn RN - 02/13/2021 1:12 PM EDT Per , plan for medical readiness for discharge 02/14/21 without needs. CM to continue to monitor. Bee Conn RNCM * Chrystal Babb RD - 02/13/2021 9:39 AM EDT Nutrition Initial Note - Low Nutrition Acuity Patient admitted with gallstone pancreatitis, relevant medical history includes HTN, T2DM/pre-DM (per pt report - of note most recent A1c 5.4), obesity, and nephrolithiasis. Pancho Babb is a 55 y.o. male Reason for intervention: HD9 cx: low fat diet ed q's Nutrition Recommendations: Continue regular diet, encouraging low fat food items Enc good intake of all foods Discussed with pt low fat diet education per pt request while walking around the floor (ie. low-fatmeal options, which foods to limit grocery shopping etc). Discussed Plate Method with pt per pt request while on walk, pt expressed good understanding. Trend wts Monitor and replete lytes as indicated - pended phos recheck (low on 02/07) I was able to discuss plan with provider Medicine 2500. Active Orders Diet Full Liquid Frequency: Effective Now Number of Occurrences: Until Specified Lab Results Component Value Date NA 138 02/13/2021 K 4.3 02/13/2021 CL 104 02/13/2021 CO2 26 02/13/2021 BUN 6 (L) 02/13/2021 CREATININE 0.68 (L) 02/13/2021 ESTGFR 107 02/13/2021 MAGNESIUM 0.82 02/10/2021 CALCIUM 8.2 (L) 02/13/2021 PHOS 2.3 (L) 02/07/2021 AST 32 02/13/2021 ALT 53 02/13/2021 ALKPHOS 142 (H) 02/13/2021 BILITOT 0.4 02/13/2021 BILIDIR 0.2 02/11/2021 HA1C 5.4 06/24/2020 25OHVITD 58 06/24/2020 Lab Results Component Value Date POCGLU 175 02/13/2021 POCGLU 230 (H) 02/12/2021 POCGLU 194 02/12/2021 POCGLU 147 02/12/2021 Skin Status: Shift Pressure Injury Prevention Occiput: No Injury Thoracic Spine: No Injury Sacral: No Injury Ischial - left: No Injury Ischial - right: No Injury Heel - left: No Injury Heel - right: No Injury Elbow - left: No Injury Elbow - right: No Injury Device Sites: O2 sat monitor, IV sites Other Sites: ID band Relevant medications: bowel meds, lantus, humalog, oxycodone Last Bowel Movement: 02/12/21 Admit Weight: 110.7 kg Estimated body mass index is 34.76 kg/m?? as calculated from the following: Height as of this encounter: 177 cm (5' 9.69). Weight as of this encounter: 108.9 kg (240 lb 1.3 oz). [place] Body Weight: 72.3 kg Usual Body Weight: see below Wt Readings from Last 10 Encounters: 02/10/21 108.9 kg (240 lb 1.3 oz) 06/24/20 105.8 kg (233 lb 3.2 oz) 02/21/19 99.8 kg (220 lb) 08/12/18 106.1 kg (233 lb 12.8 oz) 11/09/17 108 kg (238 lb) 05/20/17 (!) 108.9 kg (240 lb) 04/24/16 (!) 112.5 kg (248 lb) 02/25/16 (!) 110.7 kg (244 lb) Assessment: Estimated needs: IBW Calories: 4505-4805 (25-30 kcal/kg) Protein: 108-144 grams (1.5-2 g/kg) Nutrition Focused Physical Exam (NFPE): Not performed no deficits noted, appears well nourished Nutrition intake and intake history/Interview: Pt reports frustration with only being on liquid diet for over 1 week, very anxious and eager to get home to continue taking care of his mother (menitoned his brothers are helping but he doesn't trust them). Asking very appropriate questions about low fat diet, discussed guidelines for low fat diet while walking the floor with pt. Pt also mentioned some questions regarding his prediabetes, I watch my CHO but is that enough, I really try to limit any added sugar. Discussed plate method with pt for meal and snack structuring, pt found this helpful and was appreciative of visit. Enc pt to reach out to nutrition services if any other additional qu estions arise, pt agreeable. Protein-calorie Malnutrition: Not identified (KAMALJIT Lindsay J Parenteral Enteral Nutr. 2011; 36(3): 273-83) Nutrition to continue to follow up while inpatient Chrystal Babb RD Pager #[phone] * Dasia Rosa MD - 02/13/2021 8:[address] [facility] Department of Surgery Inpatient Consult Note Reason for Consult: pancreatic necrosis with fluid collection on CT HPI: Pancho Babb is a 55 y.o. male with a PMH of HTN, T2DM, obesity, and nephrolithiasis who was admitted critically ill 9 days ago with gallstone pancreatitis. He was overall improving with supportive management of IV fluids and pain control, nearing discharge home with plan for ERCP in 4-6 weeksf/b cholecystectomy. However, he became febrile overnight (Tmax 38.8) so CT scan was obtained whichshowed persistent severe necrotizing pancreatitis with worsening edema and enlarged fluid collection in the lesser sac. He is hemodynamically normal. He endorses severe back pain that is unchanged over the past few daysand mild intermittent pain in the lower quadrants. He is tolerating a full liquid diet without N/V and is passing flatus, though he has not had a normal bowel movement since prior to admission per his report. He otherwise denies chest pain, shortness of breath, dizziness, or changes in his urinary habits. PMH: - HTN - T2DM - obesity - nephrolithiasis PSH: - back surgery No prior abdominal surgeries. Past Surgical History: Procedure Laterality Date ??? PRO COLONOSCOPY, DIAGNOSTIC N/A 01/14/2016 COLONOSCOPY, DIAGNOSTIC performed by Ruslan Taylor MD at [facility] ENDOSCOPY MEDS: Current Outpatient Medications on File Prior to Encounter Medication Sig Dispense Refill ??? metFORMIN XR (Glucophage XR) 500 mg Tablet Sustained Release 24 hr Take 3 tablets by mouth daily. 270 tablet 3 ??? ergocalciferoL, vitamin D2, (vitamin D) 50,000 unit Capsule Take 1 capsule by mouth once a week. 13 capsule 4 ??? metFORMIN (FORTAMET) 500 mg Tablet Extended Rel 24 hr Take 2 tablets by mouth daily. 270 tablet4 ??? spironolactone (ALDACTONE) 25 mg Tablet TAKE ONE TABLET BY MOUTH TWICE A DAY 180 tablet 3 ??? amLODIPine (NORVASC) 5 mg Tablet 5 mg daily. ??? lisinopril (PRINIVIL;ZESTRIL) 20 mg Tablet Take 20 mg by mouth daily. ??? aspirin 81 mg Tablet, Delayed Release (E.C.) Take 81 mg by mouth daily. ALL: No Known Allergies FHx: Denies family history of bleeding or clotting disorders. SHx: Socioeconomic History ??? Marital status: Occupational History ??? 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 Smoking status: Never Smoker ??? Smokeless tobacco: Never Used Vaping Use ??? Vaping Use: Never used Substance and Sexual Activity ??? Alcohol use: Yes Comment: occasionally, weekly 2-6 drinks at once ??? Drug use: No ROS: A 10-point review of systems was negative except as noted in HPI. VITALS: Patient Vitals for the past 24 hrs: Temp Heart Rate From SP02 Resp BP SpO2 O2 Device 02/12/21 1100 -- 100 bpm -- -- 95 % -- 02/12/21 1146 -- 94 bpm -- -- 93 % -- 02/12/21 1410 36.7 ??C (98.1 ??F) (!) 107 bpm 20 159/88 95 % RA 02/12/21 1937 37.1 ??C (98.8 ??F) 96 bpm 20 157/88 97 % RA 02/12/212012 -- 92 bpm -- -- 95 % -- 02/13/21 0332 37.2 ??C (98.9 ??F) 96 bpm 18 155/88 94 % RA 02/13/21 0812 36.9 ??C (98.4 ??F) 93 bpm 18 152/89 96 % EXAM: Gen: NAD, resting comfortably in bed, conversant HEENT: MMM, no scleral icterus CV: sinus tachycardia to 100s, normotensive on monitor, pulses 2+ b/l (radial, DP) Pulm: unlabored breathing on RA, no wheezing GI/Abd: soft, obese, mildly distended but not tympanic, mildly tender to deep palpation in suprapubic region, otherwise nontender throughout to palpation and percussion, no prior scars noted MSK: extremities warm, no notable edema Neuro: alert, sleepy, no focal deficits LABS: Recent Labs 02/13/2141902/12/2192502/11/21 04502/07/21 1357 WBC 13.7* 13.1* 12.7* 13.7* HGB 10.5* 9.8* 8.9* 11.4* HCT 31.5* 29.0* 26.1* 32.5* PLATELET 383* 331 275 154 NEUTROABS -- 10.91* 10.77* 11.25* Recent Labs 02/13/2141902/12/21 0902/11/21 0450 NA 138 139 140 K 4.3 4.0 3.5 CL 104 106 105 CO2 26 25 27 BUN 6* 5* 8* CREATININE 0.68* 0.74* 0.74* Recent Labs 02/13/2141902/12/2192502/11/21 04502/10/21 0417 02/07/21 1357 CALCIUM 8.2* 8.1* 7.9* 7.9* 7.9* MAGNESIUM -- -- -- 0.82 0.75 PHOS -- -- -- -- 2.3* Recent Labs 02/12/2192502/07/21 1357 GLUCOSE 190 278* Recent Labs 02/13/21 0420 02/12/21 0926 02/11/21 0450 02/10/21 0417 02/09/21 0440 AST 32 60* 24 21 24 ALT 53 56* 27 26 34 ALKPHOS 142* 153* 90 83 78 BILITOT 0.4 0.5 0.4 0.5 0.6 BILIDIR -- -- 0.2 0.2 0.2 No results for input(s): INR, PT, PTT in the last 168 hours. MICRO: No new results. (BCx from OSH with no growth) IMAGING/DIAGNOSTICS: CT A/P 02/10/2021 1. Similar appearance of necrotizing pancreatitis with mild interval increase in edema and fluid inthe lesser sac. 2. Evidence of [place] Turners and [place] sign. 3. Interval enlargement of gallbladder. Ptotic gallbladder. Cannot rule out cholecystitis. ASSESSMENT: Pancho Babb is a 55 y.o. male with HTN, T2DM, and prior nephrolithiasis who is admitted with gallstone pancreatitis. General Surgery was consulted for increasing size of peripancreatic fluid collection with concern for infection. Given his clinical stability, would not offer an operation at this time. If he develops hemodynamic instability and/or fever, would first work up other possible sources of infection then, if unrevealing, would consider endoscopic drainage of the fluid collection. He is complaining of some suprapubic pain and mentions his pain is less manageable with his currentpain regimen since he started a liquid diet. RECOMMENDATIONS: ?? No indication for operative intervention at this time. ?? Gi planning MRCP now, and possible ERCP pending further characterization of PD on MRCP. ?? Consider supportive care with IV fluids, pain control. Okay to advance diet as tolerated, as early enteral feeding improves outcomes in pancreatitis. ?? General Surgery will continue to follow. Please page #[phone] with questions or concerns. Dasia Renteria MD Consult pager #[phone] 02/13/2021 8:46 AM * Nahid Shah MD - 02/12/2021 12:29 PM EDT Images from the original note were not included. DIVISION OF GASTROENTEROLOGY & HEPATOLOGY CONSULT PROGRESS NOTE NAME: Pancho Babb : 1965 INTERVAL: - Last seen by the GI consult team on 02/05/21 for gallstone pancreatitis with initial recommendations to follow his abdominal distension, bowel regimen, correct electrolyte issues, and to followup asan outpatient for ERCP in 1 month. - Since that time, he was reportedly improving well with no further issues while on IVF, pain control etc. With impending plans for discharge. - Overnight on 02/11, he was noted to be febrile to 101.3 with HR 110, BP 161/88. -Recent labs demonstrate WBC 13.1 (stable), Hgb 9.8, and PLT 331. BMP is unremarkable. LFTs with recent increase in AST 24-> 60, ALT 27-> 56, alk phos 90-> 153 with T bili remaining stable at 0.5. -CT Abdomen on 02/07/21: Necrotizing pancreatitis. Interval necrosis of pancreatic segments as described in the body the report without ductal dilation concerning for duct disruption. Progression of peripancreatic edema and inflammatory stranding and ascites. Cholesterol stones evident in the gallbla dder. -CT abdomen with contrast on 02/10/21: showed similar appearance of necrotizing pancreatitis with mild interval increase in edema and fluid in the lesser sac. Evidence of [place] Lock[place] and Kevin sign. Interval enlargement of gallbladder, ptotic gallbladder, cannot rule out cholecystitis. GI was notified of these findings with query about urgent need for ERCP. Past Medical History, Surgical History, Family History, Social History as noted in initial consult note MEDICATIONS: Scheduled: ??? bisacodyL 10 mg Rectal Daily ??? insulin lispro 0-8 Units Subcutaneous TID WC ??? amLODIPine 5 mg Oral Daily ??? piperacillin-tazobactam 3.375 g Intravenous Q8H ??? lisinopriL 20 mg Oral Daily ??? spironolactone 25 mg Oral BID ??? traZODone 100 mg Oral Nightly ??? acetaminophen 975 mg Oral Q8H ??? insulin glargine 15 Units Subcutaneous Nightly ??? insulin lispro 1-6 Units Subcutaneous TID AC ??? enoxaparin 40 mg Subcutaneous Nightly ??? polyethylene glycoL (MIRALAX) oral powder 17 g Oral BID ??? aspirin 81 mg Oral Daily ??? senna-docusate 1 tablet Oral BID ??? sodium chloride 0.9 % (flush) 5 mL Intravenous BID ??? lidocaine 3 patch Transdermal Q24H And ??? lidocaine 3 patch Transdermal Q24H Drips: PRN: oxyCODONE, albuteroL, iohexoL, cyclobenzaprine, sodium chloride 0.9 % (flush), lidocaine No Known Allergies VITALS: T Temp: [36.4 ??C (97.5 ??F)-38.5 ??C (101.3 ??F)] HR Heart Rate: -- BP BP: (135-165)/(77-89) RR Resp: [16-20] SpO2 SpO2: [93 %-96 %] IO 02/11 0701 - 02/12 0700 In: 967 [P.O.:967] Out: 5425 [Urine:5425] Wt Last 108.9 kg (240 lb 1.3 oz) Admit 110.7 kg PHYSICAL EXAM: GEN: Awake, alert, oriented, no acute distress HEENT: sclerae anicteric, moist mucous membranes RESP: Air entry equal bilaterally, no obvious rales/rhonchi CARDIAC: RRR, normal S1/S2, no appreciable murmurs ABDOMEN: Soft, non-tender, non-distended, normoactive bowel sounds EXTREM: Warm, no edema NEURO: Grossly intact, moves all extremities SKIN:No jaundice LABS: CBC: Recent Labs 02/12/21 0926 02/11/21 0450 02/10/21 0417 02/09/21 0440 02/08/21 0829 02/07/21 1357 02/06/21 0326 WBC 13.1* 12.7* 15.0* 14.8* 13.4* 13.7* 16.5* HGB 9.8* 8.9* 9.1* 9.5* 10.9* 11.4* 11.2* HCT 29.0* 26.1* 26.7* 27.9* 31.0* 32.5* 32.7* PLATELET 331 275 228 181 133* 154 140* MCV 92.4 91.6 91.1 90.0 89.1 89.0 91.1 RDWCV 13.6 13.7 13.6 13.5 13.7 13.4 13.4 COAG: No results for input(s): PTT, INR in the last 168 hours. CHEM: Recent Labs 02/12/21 0926 02/11/21 0450 02/10/21 0417 02/09/21 0440 02/08/21 0829 02/07/21 1357 02/06/21 0326 GLUCOSE 190 -- -- -- -- 278* 225* NA 139 140 137 136 137 137 137 K 4.0 3.5 3.2* 3.2* 3.6 3.3* 3.5 CL 106 105 100 100 103 102 103 CO2 25 27 24 25 22 23 20* BUN 5* 8* 13 11 8* 10 12 CREATININE 0.74* 0.74* 0.79* 0.70* 0.50* 0.61* 0.66* ALBUMIN 2.9* 2.5* 2.5* 2.4* -- 2.9* 3.0* MAGNESIUM -- -- 0.82 -- -- 0.75 -- CALCIUM 8.1* 7.9* 7.9* 7.7* 7.6* 7.9* 7.8* HEPATIC: Recent Labs 02/12/21 0902/11/21 0450 02/10/21 0417 02/09/21 0440 02/07/21 1357 02/06/21 0326 ALKPHOS 153* 90 83 78 88 76 ALT 56* 27 26 34 41 44 AST 60* 24 21 24 36 39 BILITOT 0.5 0.4 0.5 0.6 0.9 1.4* BILIDIR -- 0.2 0.2 0.2 -- -- LIPASE -- -- -- -- 91* -- INFLAMM: No results for input(s): CRP in the last 168 hours. Invalid input(s): ESR IMAGING: Images and reports personally reviewed in eDH CT Abdomen w Contrast Final Result 1. Similar appearance of necrotizing pancreatitis with mild interval increase in edema and fluid in the lesser sac. 2. Evidence of [place] Turn[place] and Kevin sign. 3. Interval enlargement of gallbladder. Ptotic gallbladder. Cannot rule out cholecystitis. Thank you for letting us participate in the care of this patient. If you are a health care provider and have any questions regarding this report, please contact the number below. For patients who have questions please contact the health live in caregiver that requested your imaging first. Electronically signed by: Wyatt Mitchell MD, [facility] ([phone]), at 02/11/2021 1:10 AM XR Chest One View Final Result Low lung volume exam with evidence of bibasilar effusion and or airless lung. Thank you for letting us participate in the care of this patient. If you are a health care provider and have any questions regarding this report, please contact the number below. For patients who have questions please contact the health live in caregiver that requested your imaging first. Electronically signed by: Wyatt Mitchell MD, [facility] ([phone]), at 02/09/2021 1:[address] Abdomen & Pelvis w Contrast Final Result 1. Necrotizing pancreatitis. 2. Interval necrosis of pancreatic segments as described in the body the report without ductal dilation concerning for duct disruption. 3. Progression of peripancreatic edema and inflammatory stranding and ascites. 4. Cholesterol stones evident in the gallbladder. Thank you for letting us participate in the care of this patient. If you are a health care provider and have any questions regarding this report, please contact the number below. For patients who have questions please contact the health live in caregiver that requested your imaging first. Electronically signed by: Deepika Ramsey MD, [facility] ([phone]), at 02/08/2021 10:43 AM XR Chest PA & Lateral (Generic) Final Result Improved bibasilar atelectasis. Very small pleural effusions. Thank you for letting us participate in the care of this patient. If you are a health care provider and have any questions regarding this report, please contact the number below. For patients who have questions please contact the health live in caregiver that requested your imaging first. Electronically signed by: Daisy Larsen MD, [facility] ([phone]), at 02/07/2021 8:05 AM XR Chest One View Final Result New endotracheal tube placement since the previous study, tip approximately 7 cm above the fide. Nasogastric tube, tip in stomach No other interval change. Hypoinflation. LEFT basilar focal atelectasis and/or pneumonia. Thank you for letting us participate in the care of this patient. If you are a health care provider and have any questions regarding this report, please contact the number below. For patients who have questions please contact the health live in caregiver that requested your imaging first. Electronically signed by: Aniket Medina MD, [facility] ([phone]), at 02/04/2021 1:19 PM XR Abdomen 1 view (Generic) Final Result FINDINGS/IMPRESSION: The enteric tube which appears over the region of the stomach on chest radiograph dated 02/04/2021 at 12:34 hours is not seen on this exam obtained 2 minutes later. If the enteric tube was not manipulated between these 2 studies it is likely that the [id number] of this study does not include the enteric tube positioned in the upper abdomen. If the enteric tube was manipulated then it's position is unknown. Stool in the ascending colon and cecum. I have personally reviewed the image(s) and the resident's interpretation and agree with the findings, Ruslan Quintanilla MD at 02/04/2021 2:31 PM Thank you for letting us participate in the care of this patient. If you are a health care provider and have any questions regarding this report, please contact the number below. For patients who have questions please contact the health live in caregiver that requested your imaging first. Electronically signed by: Ruslan Quintanilla MD, [facility] ([phone]), at 02/04/2021 2:31 PM ENDOSCOPY: Images and reports personally reviewed in e[facility] ASSESSMENT & PLAN: Pancho Babb is a 55 y.o. M w/PMH of alcohol use disorder, HTN, hypokalemia, and T2DM who was admitted with concern for gallstone pancreatitis and choledocholithiasis. Initially evaluated on 02/05 for gallstone pancreatitis, we deferred any urgent management as he remained HDS and instead planned on OP ERCP in 4-6 weeks. Since that time, he was improving with IVF and pain control with repeat scans notable for necrotizing pancreatitis with concern for duct disruption. In light of his ongoing abdominal pain and LFT abnormalities, duct disruption remains a very real possibility and should be further investigated. We would recommend MRCP at this time, with plan for possible ERCP w/stenting if indeed MRCP continues to indicate abnormalities in the PD. RECOMMENDATIONS: - MRCP now - Can consider ERCP pending further characterization of PD on MRCP Patient seen with Dr. Ricardo. Nahid Shah MD PGY-4, Gastroenterology Associated attestation - Adonis Ricardo MD - 02/13/2021 10:54 AM EDT I have independently seen and examined the patient, and have reviewed the resident???s above note, and agree with the documented history, physical findings, and study results; my evaluation of the patient is below: I met with Mr Skinny who was seen several days ago by the GI consult service, and was pending discharge but then developed a fever which is likely secondary ton pancreatic inflammatory process, though blood and urine cultures are recommended. In terms or possible duct disruption with increase fluid, I would recommend repeating MRCP to eval for disconnected duct, and reassess for persistent choledocholithiasis, and pending findings will discuss ercp Adonis Ricardo MD * Imtiaz Whatley MD - 02/12/2021 9:19 AM EDT Hospital Medicine Attending Daily Progress Note Admit Date: 02/04/2021 Hospital Day 8 days Active Hospital Problems Diagnosis ??? Hypertensive crisis ??? Gallstone pancreatitis ??? Insulin resistance (high c-peptide 8.2 on 08/12/18 and low HDL 34) ??? Diabetes mellitus diagnosed at age 49 (A1c 6.8% in Jun 2015) ??? Hypertension ??? Obesity ??? Hypokalemia Resolved Hospital Problems Diagnosis Date Resolved ??? Acute respiratory failure 02/05/2021 ??? GRICELDA (acute kidney injury) 02/06/2021 H Active Non-Hospital Problems Diagnosis ??? Vitamin D deficiency ??? Adrenal nodule Inpatient Medications: Scheduled ??? bisacodyL 10 mg Rectal Daily ??? insulin lispro 0-8 Units Subcutaneous TID WC ??? amLODIPine 5 mg Oral Daily ??? piperacillin-tazobactam 3.375 g Intravenous Q8H ??? lisinopriL 20 mg Oral Daily ??? spironolactone 25 mg Oral BID ??? traZODone 100 mg Oral Nightly ??? acetaminophen 975 mg Oral Q8H ??? insulin glargine 15 Units Subcutaneous Nightly ??? insulin lispro 1-6 Units Subcutaneous TID AC ??? enoxaparin 40 mg Subcutaneous Nightly ??? polyethylene glycoL (MIRALAX) oral powder 17 g Oral BID ??? aspirin 81 mg Oral Daily ??? senna-docusate 1 tablet Oral BID ??? sodium chloride 0.9 % (flush) 5 mL Intravenous BID ??? lidocaine 3 patch Transdermal Q24H And ??? lidocaine 3 patch Transdermal Q24H Continuous infusions: PRN: oxyCODONE, albuteroL, iohexoL, cyclobenzaprine, sodium chloride 0.9 % (flush), lidocaine Interval History: - oxycodone frequency changed to q3 hours in the early evening of last night. He had a restful night and overall feels that his pain is well controlled. This morning he has more bloating and less of the back moose nhe has been complaining of the last few days. He hasn't had a full bowel movement since admission - another fever overnight, as high as 101.3. No new symptoms other than the above ROS: A full 14-point review of systems was conducted and is negative except as noted above Physical Exam Vitals Range last 24 hrs Temperature Temp: [36.4 ??C (97.5 ??F)-38.5 ??C (101.3 ??F)] Heart Rate Heart Rate: -- Blood Pressure BP: (135-165)/(77-89) Respiratory Rate Resp: [16-20] SpO2 SpO2: [94 %-96 %] Intake/Output Summary (Last 24 hours) at 02/12/2021 0919 Last data filed at 02/12/2021 0813 Gross per 24 hour Intake 967 ml Output 5375 ml Net -4408 ml Patient Vitals for the past 168 hrs: Weight 02/10/21 0630 108.9 kg (240 lb 1.3 oz) Body mass index is 34.76 kg/m??. GEN: obese man, no distress this morning HEENT: MMM ABD: soft, mild distension. Mild abdominal tenderness in the RUQ and epigastrium only on very deep palpation. Negative Rodriguez's sign EXT: no LE edema SKIN: no rash noted NEURO: awake and conversant. Moving around in bed with only mild difficulty due to pain Studies reviewed in eDH. Remarkable for the following: LABS: Last 3 wbc, hgb, hct plt Recent Labs 02/11/21 0450 02/10/21 0417 02/09/21 0440 WBC 12.7* 15.0* 14.8* HGB 8.9* 9.1* 9.5* HCT 26.1* 26.7* 27.9* PLATELET 275 228 181 Last 3 Lytes Recent Labs 02/11/21 0450 02/10/21 0417 02/09/21 0440 NA 140 137 136 K 3.5 3.2* 3.2* CL 105 100 100 CO2 27 24 25 BUN 8* 13 11 CREATININE 0.74* 0.79* 0.70* Last 3 LFTs Recent Labs 02/11/21 0450 02/10/21 0417 02/09/21 0440 AST 24 21 24 ALT 27 26 34 ALKPHOS 90 83 78 BILITOT 0.4 0.5 0.6 BILIDIR 0.2 0.2 0.2 FSBG Trend Recent Labs 02/12/21 0812 02/11/21 1949 02/11/21 1710 02/11/21 1151 02/11/21 0729 02/10/21 2138 02/10/21 1729 02/10/21 1232 02/10/21 0815 02/09/21 2119 POCGLU 162 243* 213* 156 147 180 150 102 159 166 MICRO: No results for input(s): URINECULTURE in the last 720 hours. No results for input(s): GRAMSTAIN, BFCX, LOWERRESPCX, TISSUECX in the last 720 hours. Recent Labs 02/04/21 1230 02/04/21 1257 02/10/21 1839 02/10/21 1852 BLOODCX No growth at 5 days. No growth at 5 days. No growth at 1 day. No growth at 1 day. ECG: Recent Labs 02/05/21 1649 DIAGLINE Sinus tachycardia with Premature atrial complexes with Aberrant conduction Abnormal ECG When compared with ECG of 04-FEB-2021 12:42, Aberrant conduction is now Present Confirmed by MD Kermit, Gary ([id number]) on 02/06/2021 2:56:26 PM QTCCALC 462 VASCULAR: No results for input(s): VBTEXTRPT in the last 720 hours. IMAGING: Results for orders placed or performed during the hospital encounter of 02/04/21 XR Chest One View (Exam End: 02/04/2021 12:51 PM) Impression New endotracheal tube placement since the previous study, tip approximately 7 cm above the fide. Nasogastric tube, tip in stomach No other interval change. Hypoinflation. LEFT basilar focal atelectasis and/or pneumonia. Thank you for letting us participate in the care of this patient. If you are a health care provider and have any questions regarding this report, please contact the number below. For patients who have questions please contact the health live in caregiver that requested your imaging first. Electronically signed by: Aniket Medina MD, [facility] ([phone]), at 02/04/2021 1:19 PM XR Abdomen 1 view (Generic) (Exam End: 02/04/2021 12:51 PM) Impression FINDINGS/IMPRESSION: The enteric tube which appears over the region of the stomach on chest radiograph dated 02/04/2021 at 12:34 hours is not seen on this exam obtained 2 minutes later. If the enteric tube was not manipulated between these 2 studies it is likely that the [id number] of this study does not include the enteric tube positioned in the upper abdomen. If the enteric tube was manipulated then it's position is unknown. Stool in the ascending colon and cecum. I have personally reviewed the image(s) and the resident's interpretation and agree with the findings, Ruslan Quintanilla MD at 02/04/2021 2:31 PM Thank you for letting us participate in the care of this patient. If you are a health care provider and have any questions regarding this report, please contact the number below. For patients who have questions please contact the health live in caregiver that requested your imaging first. Electronically signed by: Ruslan Quintanilla MD, [facility] ([phone]), at 02/04/2021 2:31 PM XR Chest PA & Lateral (Generic) (Exam End: 02/06/2021 9:10 PM) Impression Improved bibasilar atelectasis. Very small pleural effusions. Thank you for letting us participate in the care of this patient. If you are a health care provider and have any questions regarding this report, please contact the number below. For patients who have questions please contact the health live in caregiver that requested your imaging first. Electronically signed by: Daisy Larsen MD, [facility] ([phone]), at 02/07/2021 8:[address] Abdomen & Pelvis w Contrast (Exam End: 02/07/2021 11:22 PM) Impression 1. Necrotizing pancreatitis. 2. Interval necrosis of pancreatic segments as described in the body the report without ductal dilation concerning for duct disruption. 3. Progression of peripancreatic edema and inflammatory stranding and ascites. 4. Cholesterol stones evident in the gallbladder. Thank you for letting us participate in the care of this patient. If you are a health care provider and have any questions regarding this report, please contact the number below. For patients who have questions please contact the health live in caregiver that requested your imaging first. Electronically signed by: Deepika Ramsey MD, [facility] ([phone]), at 02/08/2021 10:43 AM XR Chest One View (Exam End: 02/08/2021 11:15 PM) Impression Low lung volume exam with evidence of bibasilar effusion and or airless lung. Thank you for letting us participate in the care of this patient. If you are a health care provider and have any questions regarding this report, please contact the number below. For patients who have questions please contact the health live in caregiver that requested your imaging first. Electronically signed by: Wyatt Mitchell MD, [facility] ([phone]), at 02/09/2021 1:[address] Abdomen w Contrast (Exam End: 02/10/2021 10:50 PM) Impression 1. Similar appearance of necrotizing pancreatitis with mild interval increase in edema and fluid in the lesser sac. 2. Evidence of [place] Turners and Kevin sign. 3. Interval enlargement of gallbladder. Ptotic gallbladder. Cannot rule out cholecystitis. Thank you for letting us participate in the care of this patient. If you are a health care provider and have any questions regarding this report, please contact the number below. For patients who have questions please contact the health live in caregiver that requested your imaging first. Electronically signed by: Wyatt Mitchell MD, [facility] ([phone]), at 02/11/2021 1:10 AM Assessment: 55-year-old male with diabetes, hypertension due to hyperaldosteronism, and history of alcohol use disorder accepted in transfer from [facility] with gallstone pancreatitis complicated by ascending cholangitis, acute kidney injury, acute respiratory failure requiring intubation and transferred to our facility. ??It appears in the interim he passed his gallstone which was the presumed etiology of all of the above, he was extubated easily and primary issues now are pain and hypertension. Course complicated by new fevers starting on 02/10/21. Plan: #acute gallstone pancreatitis: with necrotizing pancreatitis seen on 02/08/21 CT scan. BUN dropped from 25 on admission to 8 after fluid resuscitation. Pain had been improving with the addition of regular oral pain medication. Now with fevers but without evidence of infected necrosis on CT abdomen, non-obstructive LFTs, unlikely cholecystitis based on exam findings - appreciate general surgery consult. No role for surgical intervention at present - will re-engage GI today to consider whether ERCP this admission might be necessary - continue full liquid for now - continue pip-tazo for now. Would stop when cultures are negative for 48 hours provided no source of infection is found (afternoon 02/12) - per GI consider ERCP in 4-6 weeks followed by surgical cholecystectomy - poor pain control with IV Dilaudid alone. Current pain regimen: - 10 mg PO oxycodone q3 hours PRN - no further IV pain medication - scheduled Tylenol - PRN cyclobenzaprine #uncontrolled HTN: etiology likely poorly controlled pain. Now well controlled on home regimen - lisinopril to 20 mg daily - spironolactone to 25 mg BID - amlodipine 5 mg #concern for cholangitis: fevers on admission, although no significant LFT abnormalities. No positive culture data. I called [facility] on 02/08/21 and confirmed that blood cultures were negative at 120 hours - antibiotics initially stopped 02/08/21. Now restarted for new fevers #T2DM - insulin glargine 15 units nightly - sliding scale moderate correction - mealtime correction DIET: full liquid ACCESS: PIV LINES/TUBES: none Ppx: LMWH CODE: full FAMILY UPDATE: left a message with daughter Pratima 02/08/21 LABS: daily DISPO: anticipate home pending improvement in abdominal pain and ability to tolerate a diet Team Pager( Coverage 11/01): #[phone] PCP: Peña Turner DO [phone] Attestation: IPI Certification I certify that I am a D-H credentialed attending provider with admitting privileges and that the patient meets or has met medical necessity to require an inpatient IPI level of care meeting a minimumof two midnights or is on the [facility] inpatient only procedure list (status C) due to: uncontrolled pain requiring titration of medications to achieve optimal effect and to minimize immediate or severe side effects Imtiaz Whatley MD 02/12/2021 * Dasia Rosa MD - 02/12/2021 8:[address] [facility] Department of Surgery Inpatient Consult Note Reason for Consult: pancreatic necrosis with fluid collection on CT HPI: Pancho Babb is a 55 y.o. male with a PMH of HTN, T2DM, obesity, and nephrolithiasis who was admitted critically ill 8 days ago with gallstone pancreatitis. He was overall improving with supportive management of IV fluids and pain control, nearing discharge home with plan for ERCP in 4-6 weeksf/b cholecystectomy. However, he became febrile overnight (Tmax 38.8) so CT scan was obtained whichshowed persistent severe necrotizing pancreatitis with worsening edema and enlarged fluid collection in the lesser sac. He is hemodynamically normal. He endorses severe back pain that is unchanged over the past few daysand mild intermittent pain in the lower quadrants. He is tolerating a full liquid diet without N/V and is passing flatus, though he has not had a normal bowel movement since prior to admission per his report. He otherwise denies chest pain, shortness of breath, dizziness, or changes in his urinary habits. PMH: - HTN - T2DM - obesity - nephrolithiasis PSH: - back surgery No prior abdominal surgeries. Past Surgical History: Procedure Laterality Date ??? PRO COLONOSCOPY, DIAGNOSTIC N/A 01/14/2016 COLONOSCOPY, DIAGNOSTIC performed by Ruslan Taylor MD at [facility] ENDOSCOPY MEDS: Current Outpatient Medications on File Prior to Encounter Medication Sig Dispense Refill ??? metFORMIN XR (Glucophage XR) 500 mg Tablet Sustained Release 24 hr Take 3 tablets by mouth daily. 270 tablet 3 ??? ergocalciferoL, vitamin D2, (vitamin D) 50,000 unit Capsule Take 1 capsule by mouth once a week. 13 capsule 4 ??? metFORMIN (FORTAMET) 500 mg Tablet Extended Rel 24 hr Take 2 tablets by mouth daily. 270 tablet4 ??? spironolactone (ALDACTONE) 25 mg Tablet TAKE ONE TABLET BY MOUTH TWICE A DAY 180 tablet 3 ??? amLODIPine (NORVASC) 5 mg Tablet 5 mg daily. ??? lisinopril (PRINIVIL;ZESTRIL) 20 mg Tablet Take 20 mg by mouth daily. ??? aspirin 81 mg Tablet, Delayed Release (E.C.) Take 81 mg by mouth daily. ALL: No Known Allergies FHx: Denies family history of bleeding or clotting disorders. SHx: Socioeconomic History ??? Marital status: Occupational History ??? 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 Smoking status: Never Smoker ??? Smokeless tobacco: Never Used Vaping Use ??? Vaping Use: Never used Substance and Sexual Activity ??? Alcohol use: Yes Comment: occasionally, weekly 2-6 drinks at once ??? Drug use: No ROS: A 10-point review of systems was negative except as noted in HPI. VITALS: Patient Vitals for the past 24 hrs: Temp Heart Rate From SP02 Resp BP SpO2 O2 Device 02/11/21 0918 -- -- -- 157/82 -- -- 02/11/21 1359 36.4 ??C (97.5 ??F) 95 bpm 16 135/77 96 % RA 02/11/21 1950 37.5 ??C (99.5 ??F) (!) 106 bpm 20 159/87 95 % RA 02/12/21 0309 (!) 38.5 ??C (101.3 ??F) (!) 110 bpm 18 161/88 94 % RA 02/12/21 0809 37 ??C (98.6 ??F) 99 bpm 20 165/89 96 % RA EXAM: Gen: NAD, resting comfortably in bed, conversant HEENT: MMM, no scleral icterus CV: sinus tachycardia to 100s, normotensive on monitor, pulses 2+ b/l (radial, DP) Pulm: unlabored breathing on RA, no wheezing GI/Abd: soft, obese, mildly distended but not tympanic, mildly tender to deep palpation in suprapubic region, otherwise nontender throughout to palpation and percussion, no prior scars noted MSK: extremities warm, no notable edema Neuro: alert, sleepy, no focal deficits LABS: Recent Labs 02/11/21 0450 02/10/21 0417 02/09/21 0440 02/07/21 1357 02/06/21 0326 WBC 12.7* 15.0* 14.8* 13.7* 16.5* HGB 8.9* 9.1* 9.5* 11.4* 11.2* HCT 26.1* 26.7* 27.9* 32.5* 32.7* PLATELET 275 228 181 154 140* NEUTROABS 10.77* -- -- 11.25* 14.49* Recent Labs 02/11/21 0450 02/10/21 0417 02/09/21 0440 NA 140 137 136 K 3.5 3.2* 3.2* CL 105 100 100 CO2 27 24 25 BUN 8* 13 11 CREATININE 0.74* 0.79* 0.70* Recent Labs 02/11/21 0450 02/10/21 0417 02/09/21 0440 02/07/21 1357 CALCIUM 7.9* 7.9* 7.7* 7.9* MAGNESIUM -- 0.82 -- 0.75 PHOS -- -- -- 2.3* Recent Labs 02/07/21 1357 02/06/21 0326 GLUCOSE 278* 225* Recent Labs 02/11/21 0450 02/10/21 0417 02/09/21 0440 AST 24 21 24 ALT 27 26 34 ALKPHOS 90 83 78 BILITOT 0.4 0.5 0.6 BILIDIR 0.2 0.2 0.2 No results for input(s): INR, PT, PTT in the last 168 hours. MICRO: No new results. (BCx from OSH with no growth) IMAGING/DIAGNOSTICS: CT A/P 02/10/2021 1. Similar appearance of necrotizing pancreatitis with mild interval increase in edema and fluid inthe lesser sac. 2. Evidence of Mad[place] Turners and [place] sign. 3. Interval enlargement of gallbladder. Ptotic gallbladder. Cannot rule out cholecystitis. ASSESSMENT: Pancho Babb is a 55 y.o. male with HTN, T2DM, and prior nephrolithiasis who is admitted with gallstone pancreatitis. General Surgery was consulted for increasing size of peripancreatic fluid collection with concern for infection. Given his clinical stability, would not offer an operation at this time. If he develops hemodynamic instability and/or fever, would first work up other possible sources of infection then, if unrevealing, would consider endoscopic drainage of the fluid collection. He was started on a liquid diet yesterday. He is complaining of some suprapubic pain but denies anynausea or vomiting. RECOMMENDATIONS: ?? No indication for operative intervention at this time. ?? Consider further infectious workup with BCx, UCx, etc. if persistently febrile. If still concernfor peripancreatic infection, could consider endoscopic drainage. ?? Recommend ID recs for change in antibiotics, may do better with Carbapenem. ?? Recommend re-engaging GI for evaluation and management of possible choledocholithiasis. ?? Consider supportive care with IV fluids, pain control. Okay to advance diet as tolerated, as early enteral feeding improves outcomes in pancreatitis. ?? General Surgery will continue to follow. Please page #[phone] with questions or concerns. Dasia Renteria MD Consult pager #[phone] 02/12/2021 8:36 AM * Azul Genao RN - 02/12/2021 5:41 AM EDT OUTCOME EVALUATION NOTE: OUTCOME SUMMARY: Patient alert and oriented, on room air denies shortness of breath. Patient moves around independently, c/o constant abdominal pain, Oxycodone changed to every 3 hours. Ambulated in hallway. PLAN MOVING FORWARD: Monitor VS/ Labs, I&O Pain management IV antibiotic INDIVIDUALIZED FALL PREVENTION INTERVENTIONS: Patient-specific fall risk factors per assessment: [current deficits]: Masimo, IV tubings, pain medication Assistance [level of assistance required for transfers and ambulation]: independent Supervision [direct monitoring required during toileting and ADLs]: independent Surveillance [continuous indirect monitoring]: shahbaz Lechuga within reach at all times, room near nurses' station, purposeful rounding Patient-specific fall prevention interventions for sensory deficits provided, if applicable: [X] N/A CPG GOAL OUTCOME EVALUATION: * Imtiaz Whatley MD - 02/11/2021 1:12 PM EDT Hospital Medicine Attending Daily Progress Note Admit Date: 02/04/2021 Hospital Day 7 days Active Hospital Problems Diagnosis ??? Hypertensive crisis ??? Gallstone pancreatitis ??? Insulin resistance (high c-peptide 8.2 on 08/12/18 and low HDL 34) ??? Diabetes mellitus diagnosed at age 49 (A1c 6.8% in Jun 2015) ??? Hypertension ??? Obesity ??? Hypokalemia Resolved Hospital Problems Diagnosis Date Resolved ??? Acute respiratory failure 02/05/2021 ??? GRICELDA (acute kidney injury) 02/06/2021 PMH Active Non-Hospital Problems Diagnosis ??? Vitamin D deficiency ??? Adrenal nodule Inpatient Medications: Scheduled ??? amLODIPine 5 mg Oral Daily ??? piperacillin-tazobactam 3.375 g Intravenous Q8H ??? lisinopriL 20 mg Oral Daily ??? spironolactone 25 mg Oral BID ??? traZODone 100 mg Oral Nightly ??? acetaminophen 975 mg Oral Q8H ??? insulin glargine 15 Units Subcutaneous Nightly ??? insulin lispro 1-6 Units Subcutaneous TID AC ??? enoxaparin 40 mg Subcutaneous Nightly ??? polyethylene glycoL (MIRALAX) oral powder 17 g Oral BID ??? aspirin 81 mg Oral Daily ??? senna-docusate 1 tablet Oral BID ??? sodium chloride 0.9 % (flush) 5 mL Intravenous BID ??? lidocaine 3 patch Transdermal Q24H And ??? lidocaine 3 patch Transdermal Q24H Continuous infusions: ??? dextrose 5% lactated ringers 100 mL/hr (02/11/21 0925) PRN: oxyCODONE, albuteroL, iohexoL, cyclobenzaprine, sodium chloride 0.9 % (flush), lidocaine Interval History: - in the early evening yesterday he had a new fever as high as 101.8. At that time his abdomen was soft and his vitals were stable. A CT abdomen was ordered and he was started on pip-tazo - this morning he continues to have pain that is mostly in his back with some mild abdominal pain. He denies any further chills and denies any new symptoms ROS: A full 14-point review of systems was conducted and is negative except as noted above Physical Exam Vitals Range last 24 hrs Temperature Temp: [36.6 ??C (97.9 ??F)-38.8 ??C (101.8 ??F)] Heart Rate Heart Rate: -- Blood Pressure BP: (151-161)/(79-84) Respiratory Rate Resp: [16-20] SpO2 SpO2: [92 %-95 %] Intake/Output Summary (Last 24 hours) at 02/11/2021 1312 Last data filed at 02/11/2021 1211 Gross per 24 hour Intake 240 ml Output 4100 ml Net -3860 ml Patient Vitals for the past 168 hrs: Weight 02/10/21 0630 108.9 kg (240 lb 1.3 oz) 02/05/21 0000 110.8 kg (244 lb 4.3 oz) Body mass index is 34.76 kg/m??. GEN: obese man, no distress this morning HEENT: MMM CARDS: RRR. No murmur noted PULM: CTAB posterior lung aldridge ABD: soft, mild distension. Mild abdominal tenderness in the RUQ and epigastrium only on very deep palpation. Negative Rodriguez's sign EXT: no LE edema SKIN: no rash noted NEURO: awake and conversant. Moving around in bed with only mild difficulty due to pain Studies reviewed in eDH. Remarkable for the following: LABS: Last 3 wbc, hgb, hct plt Recent Labs 02/11/21 0450 02/10/21 0417 02/09/21 0440 WBC 12.7* 15.0* 14.8* HGB 8.9* 9.1* 9.5* HCT 26.1* 26.7* 27.9* PLATELET 275 228 181 Last 3 Lytes Recent Labs 02/11/21 0450 02/10/21 0417 02/09/21 0440 NA 140 137 136 K 3.5 3.2* 3.2* CL 105 100 100 CO2 27 24 25 BUN 8* 13 11 CREATININE 0.74* 0.79* 0.70* Last 3 LFTs Recent Labs 02/11/21 0450 02/10/21 0417 02/09/21 0440 AST 24 21 24 ALT 27 26 34 ALKPHOS 90 83 78 BILITOT 0.4 0.5 0.6 BILIDIR 0.2 0.2 0.2 FSBG Trend Recent Labs 02/11/21 1151 02/11/21 0729 02/10/21 2138 02/10/21 1729 02/10/21 1232 02/10/21 0815 02/09/21 2119 02/09/21 1541 02/09/21 1219 02/09/21 0848 POCGLU 156 147 180 150 102 159 166 129 126 166 MICRO: No results for input(s): URINECULTURE in the last 720 hours. No results for input(s): GRAMSTAIN, BFCX, LOWERRESPCX, TISSUECX in the last 720 hours. Recent Labs 02/04/21 1230 02/04/21 1257 BLOODCX No growth at 5 days. No growth at 5 days. ECG: Recent Labs 02/05/21 1649 DIAGLINE Sinus tachycardia with Premature atrial complexes with Aberrant conduction Abnormal ECG When compared with ECG of 04-FEB-2021 12:42, Aberrant conduction is now Present Confirmed by MD Kermit, Gary ([id number]) on 02/06/2021 2:56:26 PM QTCCALC 462 VASCULAR: No results for input(s): VBTEXTRPT in the last 720 hours. IMAGING: Results for orders placed or performed during the hospital encounter of 02/04/21 XR Chest One View (Exam End: 02/04/2021 12:51 PM) Impression New endotracheal tube placement since the previous study, tip approximately 7 cm above the fide. Nasogastric tube, tip in stomach No other interval change. Hypoinflation. LEFT basilar focal atelectasis and/or pneumonia. Thank you for letting us participate in the care of this patient. If you are a health care provider and have any questions regarding this report, please contact the number below. For patients who have questions please contact the health live in caregiver that requested your imaging first. Electronically signed by: Aniket Medina MD, [facility] ([phone]), at 02/04/2021 1:19 PM XR Abdomen 1 view (Generic) (Exam End: 02/04/2021 12:51 PM) Impression FINDINGS/IMPRESSION: The enteric tube which appears over the region of the stomach on chest radiograph dated 02/04/2021 at 12:34 hours is not seen on this exam obtained 2 minutes later. If the enteric tube was not manipulated between these 2 studies it is likely that the [id number] of this study does not include the enteric tube positioned in the upper abdomen. If the enteric tube was manipulated then it's position is unknown. Stool in the ascending colon and cecum. I have personally reviewed the image(s) and the resident's interpretation and agree with the findings, Ruslan Quintanilla MD at 02/04/2021 2:31 PM Thank you for letting us participate in the care of this patient. If you are a health care provider and have any questions regarding this report, please contact the number below. For patients who have questions please contact the health live in caregiver that requested your imaging first. Electronically signed by: Ruslan Quintanilla MD, [facility] ([phone]), at 02/04/2021 2:31 PM XR Chest PA & Lateral (Generic) (Exam End: 02/06/2021 9:10 PM) Impression Improved bibasilar atelectasis. Very small pleural effusions. Thank you for letting us participate in the care of this patient. If you are a health care provider and have any questions regarding this report, please contact the number below. For patients who have questions please contact the health live in caregiver that requested your imaging first. Electronically signed by: Daisy Larsen MD, [facility] ([phone]), at 02/07/2021 8:[address] Abdomen & Pelvis w Contrast (Exam End: 02/07/2021 11:22 PM) Impression 1. Necrotizing pancreatitis. 2. Interval necrosis of pancreatic segments as described in the body the report without ductal dilation concerning for duct disruption. 3. Progression of peripancreatic edema and inflammatory stranding and ascites. 4. Cholesterol stones evident in the gallbladder. Thank you for letting us participate in the care of this patient. If you are a health care provider and have any questions regarding this report, please contact the number below. For patients who have questions please contact the health live in caregiver that requested your imaging first. Electronically signed by: Deepika Ramsey MD, [facility] ([phone]), at 02/08/2021 10:43 AM XR Chest One View (Exam End: 02/08/2021 11:15 PM) Impression Low lung volume exam with evidence of bibasilar effusion and or airless lung. Thank you for letting us participate in the care of this patient. If you are a health care provider and have any questions regarding this report, please contact the number below. For patients who have questions please contact the health live in caregiver that requested your imaging first. Electronically signed by: Wyatt Mitchell MD, [facility] ([phone]), at 02/09/2021 1:[address] Abdomen w Contrast (Exam End: 02/10/2021 10:50 PM) Impression 1. Similar appearance of necrotizing pancreatitis with mild interval increase in edema and fluid in the lesser sac. 2. Evidence of [place] Turners and [place] sign. 3. Interval enlargement of gallbladder. Ptotic gallbladder. Cannot rule out cholecystitis. Thank you for letting us participate in the care of this patient. If you are a health care provider and have any questions regarding this report, please contact the number below. For patients who have questions please contact the health live in caregiver that requested your imaging first. Electronically signed by: Wyatt Mitchell MD, [facility] ([phone]), at 02/11/2021 1:10 AM Assessment: 55-year-old male with diabetes, hypertension due to hyperaldosteronism, and history of alcohol use disorder accepted in transfer from [facility] with gallstone pancreatitis complicated by ascending cholangitis, acute kidney injury, acute respiratory failure requiring intubation and transferred to our facility. ??It appears in the interim he passed his gallstone which was the presumed etiology of all of the above, he was extubated easily and primary issues now are pain and hypertension. Course complicated by new fevers on 02/10/21. Plan: #acute gallstone pancreatitis: with necrotizing pancreatitis seen on 02/08/21 CT scan. BUN dropped from 25 on admission to 8 after fluid resuscitation. Pain had been improving with the addition of regular oral pain medication. Now with fevers - repeat CT abdomen with evidence of gas in pancreas but with mild increase in edema - consult to general surgery to help determine need for operative intervention in the setting of pancreatitis with fevers - NPO pending surgical consult - continue pip-tazo for now. Would stop when cultures are negative for 48 hours provided no source of infection is found - per GI consider ERCP in 4-6 weeks followed by surgical cholecystectomy - poor pain control with IV Dilaudid alone. Current pain regimen: - 10 mg PO oxycodone q4 hours PRN - no further IV pain medication - scheduled Tylenol - PRN cyclobenzaprine #uncontrolled HTN: etiology likely poorly controlled pain. Now well controlled on home regimen - lisinopril to 20 mg daily - spironolactone to 25 mg BID - amlodipine 5 mg #concern for cholangitis: fevers on admission, although no significant LFT abnormalities. No positive culture data. I called [facility] on 02/08/21 and confirmed that blood cultures were negative at 120 hours - antibiotics stopped 02/08/21 #T2DM - insulin glargine 15 units nightly - sliding scale moderate correction - add mealtime correction DIET: full liquid ACCESS: PIV LINES/TUBES: none Ppx: LMWH CODE: full FAMILY UPDATE: left a message with daughter Pratima 02/08/21 LABS: daily DISPO: anticipate home pending improvement in abdominal pain and ability to tolerate a diet Team Pager( Coverage 11/01): #[phone] PCP: Peña Turner DO [phone] Attestation: IPI Certification I certify that I am a D-H credentialed attending provider with admitting privileges and that the patient meets or has met medical necessity to require an inpatient IPI level of care meeting a minimumof two midnights or is on the [facility] inpatient only procedure list (status C) due to: uncontrolled pain requiring titration of medications to achieve optimal effect and to minimize immediate or severe side effects Imtiaz Whatley MD 02/11/2021 * Imtiaz Whatley MD - 02/10/2021 10:50 AM EDT [facility] Medicine Attending Daily Progress Note Admit Date: 02/04/2021 Hospital Day 6 days Active Hospital Problems Diagnosis ??? Hypertensive crisis ??? Gallstone pancreatitis ??? Insulin resistance (high c-peptide 8.2 on 08/12/18 and low HDL 34) ??? Diabetes mellitus diagnosed at age 49 (A1c 6.8% in Jun 2015) ??? Hypertension ??? Obesity ??? Hypokalemia Resolved Hospital Problems Diagnosis Date Resolved ??? Acute respiratory failure 02/05/2021 ??? GRICELDA (acute kidney injury) 02/06/2021 PMH Active Non-Hospital Problems Diagnosis ??? Vitamin D deficiency ??? Adrenal nodule Inpatient Medications: Scheduled ??? potassium chloride ER 20 mEq Oral Q2H ??? lisinopriL 20 mg Oral Daily ??? spironolactone 25 mg Oral BID ??? traZODone 100 mg Oral Nightly ??? acetaminophen 975 mg Oral Q8H ??? insulin glargine 15 Units Subcutaneous Nightly ??? insulin lispro 1-6 Units Subcutaneous TID AC ??? enoxaparin 40 mg Subcutaneous Nightly ??? amLODIPine 10 mg Oral Daily ??? polyethylene glycoL (MIRALAX) oral powder 17 g Oral BID ??? aspirin 81 mg Oral Daily ??? senna-docusate 1 tablet Oral BID ??? sodium chloride 0.9 % (flush) 5 mL Intravenous BID ??? lidocaine 3 patch Transdermal Q24H And ??? lidocaine 3 patch Transdermal Q24H Continuous infusions: PRN: oxyCODONE, ibuprofen, albuteroL, iohexoL, cyclobenzaprine, sodium chloride 0.9 % (flush), lidocaine Interval History: - ongoing disagreements with nursing overnight about the timing of his pain medications. He is concerned that his oxycodone is often delayed beyond the 4 hour guille. We discussed that the nurses are doing their best but that they can't be excepted to being medications in at exactly 4 hours - no IV pain medication since 2 PM yesterday. He overall feels that his pain is improving and wouldlike to advance his diet - pain continues to be focused mostly in his back with some pain in his abdomen - no new complaints ROS: A full 14-point review of systems was conducted and is negative except as noted above Physical Exam Vitals Range last 24 hrs Temperature Temp: [36.5 ??C (97.7 ??F)-37 ??C (98.6 ??F)] Heart Rate Heart Rate: [92] Blood Pressure BP: (103-133)/(59-70) Respiratory Rate Resp: [18] SpO2 SpO2: [88 %-94 %] Intake/Output Summary (Last 24 hours) at 02/10/2021 1050 Last data filed at 02/10/2021 0800 Gross per 24 hour Intake 240 ml Output 200 ml Net 40 ml Patient Vitals for the past 168 hrs: Weight 02/10/21 0630 108.9 kg (240 lb 1.3 oz) 02/05/21 0000 110.8 kg (244 lb 4.3 oz) 02/04/21 1209 110.7 kg (244 lb 0.8 oz) Body mass index is 34.76 kg/m??. GEN: obese man, no distress this morning HEENT: MMM ABD: soft, mild distension. No abdominal tenderness this morning, even on deep palpation EXT: no LE edema SKIN: no rash noted NEURO: awake and conversant. Moving around in bed with only mild difficulty due to pain Studies reviewed in eDH. Remarkable for the following: LABS: Last 3 wbc, hgb, hct plt Recent Labs 02/10/2141602/09/21 0440 02/08/21 0829 WBC 15.0* 14.8* 13.4* HGB 9.1* 9.5* 10.9* HCT 26.7* 27.9* 31.0* PLATELET 228 181 133* Last 3 Lytes Recent Labs 02/10/21 04102/09/21 0440 02/08/21 0829 NA 137 136 137 K 3.2* 3.2* 3.6 CL 100 100 103 CO2 24 25 22 BUN 13 11 8* CREATININE 0.79* 0.70* 0.50* Last 3 LFTs Recent Labs 02/10/2141602/09/21 0440 02/07/21 1357 AST 21 24 36 ALT 26 34 41 ALKPHOS 83 78 88 BILITOT 0.5 0.6 0.9 BILIDIR 0.2 0.2 -- FSBG Trend Recent Labs 02/10/21 0815 02/09/21 2119 02/09/21 1541 02/09/21 1219 02/09/21 0848 02/08/21 2117 02/08/21 1618 02/08/21 1311 02/08/21 0740 02/07/21 2150 POCGLU 159 166 129 126 166 233* 209* 286* 200* 227* MICRO: No results for input(s): URINECULTURE in the last 720 hours. No results for input(s): GRAMSTAIN, BFCX, LOWERRESPCX, TISSUECX in the last 720 hours. Recent Labs 02/04/21 1230 02/04/21 1257 BLOODCX No growth at 5 days. No growth at 5 days. ECG: Recent Labs 02/05/21 1649 DIAGLINE Sinus tachycardia with Premature atrial complexes with Aberrant conduction Abnormal ECG When compared with ECG of 04-FEB-2021 12:42, Aberrant conduction is now Present Confirmed by MD Kermit, Gary ([id number]) on 02/06/2021 2:56:26 PM QTCCALC 462 VASCULAR: No results for input(s): VBTEXTRPT in the last 720 hours. IMAGING: Results for orders placed or performed during the hospital encounter of 02/04/21 XR Chest One View (Exam End: 02/04/2021 12:51 PM) Impression New endotracheal tube placement since the previous study, tip approximately 7 cm above the fide. Nasogastric tube, tip in stomach No other interval change. Hypoinflation. LEFT basilar focal atelectasis and/or pneumonia. Thank you for letting us participate in the care of this patient. If you are a health care provider and have any questions regarding this report, please contact the number below. For patients who have questions please contact the health live in caregiver that requested your imaging first. Electronically signed by: Aniket Medina MD, [facility] ([phone]), at 02/04/2021 1:19 PM XR Abdomen 1 view (Generic) (Exam End: 02/04/2021 12:51 PM) Impression FINDINGS/IMPRESSION: The enteric tube which appears over the region of the stomach on chest radiograph dated 02/04/2021 at 12:34 hours is not seen on this exam obtained 2 minutes later. If the enteric tube was not manipulated between these 2 studies it is likely that the [id number] of this study does not include the enteric tube positioned in the upper abdomen. If the enteric tube was manipulated then it's position is unknown. Stool in the ascending colon and cecum. I have personally reviewed the image(s) and the resident's interpretation and agree with the findings, Ruslan Quintanilla MD at 02/04/2021 2:31 PM Thank you for letting us participate in the care of this patient. If you are a health care provider and have any questions regarding this report, please contact the number below. For patients who have questions please contact the health live in caregiver that requested your imaging first. Electronically signed by: Ruslan Quintanilla MD, [facility] ([phone]), at 02/04/2021 2:31 PM XR Chest PA & Lateral (Generic) (Exam End: 02/06/2021 9:10 PM) Impression Improved bibasilar atelectasis. Very small pleural effusions. Thank you for letting us participate in the care of this patient. If you are a health care provider and have any questions regarding this report, please contact the number below. For patients who have questions please contact the health live in caregiver that requested your imaging first. Electronically signed by: Daisy Larsen MD, [facility] ([phone]), at 02/07/2021 8:[address] Abdomen & Pelvis w Contrast (Exam End: 02/07/2021 11:22 PM) Impression 1. Necrotizing pancreatitis. 2. Interval necrosis of pancreatic segments as described in the body the report without ductal dilation concerning for duct disruption. 3. Progression of peripancreatic edema and inflammatory stranding and ascites. 4. Cholesterol stones evident in the gallbladder. Thank you for letting us participate in the care of this patient. If you are a health care provider and have any questions regarding this report, please contact the number below. For patients who have questions please contact the health live in caregiver that requested your imaging first. Electronically signed by: Deepika Ramsey MD, [facility] ([phone]), at 02/08/2021 10:43 AM XR Chest One View (Exam End: 02/08/2021 11:15 PM) Impression Low lung volume exam with evidence of bibasilar effusion and or airless lung. Thank you for letting us participate in the care of this patient. If you are a health care provider and have any questions regarding this report, please contact the number below. For patients who have questions please contact the health live in caregiver that requested your imaging first. Electronically signed by: Wyatt Mitchell MD, [facility] ([phone]), at 02/09/2021 1:00 AM Assessment: 55-year-old male with diabetes, hypertension due to hyperaldosteronism, and history of alcohol use disorder accepted in transfer from [facility] with gallstone pancreatitis complicated by ascending cholangitis, acute kidney injury, acute respiratory failure requiring intubation and transferred to our facility. ??It appears in the interim he passed his gallstone which was the presumed etiology of all of the above, he was extubated easily and primary issues now are pain and hypertension. Plan: #acute gallstone pancreatitis: with necrotizing pancreatitis seen on 02/08/21 CT scan. BUN dropped from 25 on admission to 8 this AM (02/08/21). Pain has been improving with the addition of regular oral pain medication - advance diet to full liquid with toast - no evidence at the moment of infected necrosis or encapsulated necrosis, so no indication for invention on necrotic pancreatic tissue - per GI consider ERCP in 4-6 weeks followed by surgical cholecystectomy - poor pain control with IV Dilaudid alone. Current pain regimen: - 10 mg PO oxycodone q4 hours PRN - no further IV pain medication - scheduled Tylenol - PRN 600 mg ibuprofen, PRN cyclobenzaprine #uncontrolled HTN: etiology likely poorly controlled pain. Now well controlled on home regimen - lisinopril to 20 mg daily - spironolactone to 25 mg BID - amlodipine 5 mg - stop terazosin 2 mg BID #concern for cholangitis: fevers on admission, although no significant LFT abnormalities. No positive culture data. I called [facility] on 02/08/21 and confirmed that blood cultures were negative at 120 hours - antibiotics stopped 02/08/21 #T2DM: good control today over the last 24 hours - insulin glargine 15 units nightly - sliding scale moderate correction - low threshold to add mealtime insulin when taking PO DIET: full liquid ACCESS: PIV LINES/TUBES: none Ppx: LMWH CODE: full FAMILY UPDATE: left a message with daughter Pratima 02/08/21 LABS: daily DISPO: anticipate home pending improvement in abdominal pain and ability to tolerate a diet Team Pager( Coverage 11/01): #[phone] PCP: Peña Turner DO [phone] Attestation: IPI Certification I certify that I am a D-H credentialed attending provider with admitting privileges and that the patient meets or has met medical necessity to require an inpatient IPI level of care meeting a minimumof two midnights or is on the [facility] inpatient only procedure list (status C) due to: uncontrolled pain requiring titration of medications to achieve optimal effect and to minimize immediate or severe side effects Imtiaz Whatley MD 02/10/2021 * Imtiaz Whatley MD - 02/09/2021 5:54 PM EDT Hospital Medicine Attending Daily Progress Note Admit Date: 02/04/2021 Hospital Day 5 days Active Hospital Problems Diagnosis ??? Hypertensive crisis ??? Gallstone pancreatitis ??? Insulin resistance (high c-peptide 8.2 on 08/12/18 and low HDL 34) ??? Diabetes mellitus diagnosed at age 49 (A1c 6.8% in Jun 2015) ??? Hypertension ??? Obesity ??? Hypokalemia Resolved Hospital Problems Diagnosis Date Resolved ??? Acute respiratory failure 02/05/2021 ??? GRICELDA (acute kidney injury) 02/06/2021 [facility] Active Non-Hospital Problems Diagnosis ??? Vitamin D deficiency ??? Adrenal nodule Inpatient Medications: Scheduled ??? lisinopriL 20 mg Oral Daily ??? oxyCODONE 10 mg Oral Q4H ??? spironolactone 25 mg Oral BID ??? acetaminophen 975 mg Oral Q8H ??? insulin glargine 15 Units Subcutaneous Nightly ??? insulin lispro 1-6 Units Subcutaneous TID AC ??? enoxaparin 40 mg Subcutaneous Nightly ??? amLODIPine 10 mg Oral Daily ??? polyethylene glycoL (MIRALAX) oral powder 17 g Oral BID ??? aspirin 81 mg Oral Daily ??? senna-docusate 1 tablet Oral BID ??? melatonin 6 mg Oral Nightly ??? sodium chloride 0.9 % (flush) 5 mL Intravenous BID ??? lidocaine 3 patch Transdermal Q24H And ??? lidocaine 3 patch Transdermal Q24H Continuous infusions: PRN: ibuprofen, albuteroL, iohexoL, cyclobenzaprine, sodium chloride 0.9 % (flush), lidocaine Interval History: - overnight with ongoing back and abdominal pain. Some conflict with nursing about timing of PRN IVpain medications - overall he feels greatly improved compared to yesterday. His pain has been well controlled with his current regimen. He is willing to attempt remove IV opiates from his regimen - he feels hungry and would like to attempt advancing his diet - no new complaints ROS: A full 14-point review of systems was conducted and is negative except as noted above Physical Exam Vitals Range last 24 hrs Temperature Temp: [36.6 ??C (97.9 ??F)-37.3 ??C (99.1 ??F)] Heart Rate Heart Rate: [111] Blood Pressure BP: (94-142)/(55-85) Respiratory Rate Resp: [18-20] SpO2 SpO2: [89 %-95 %] Intake/Output Summary (Last 24 hours) at 02/09/2021 1754 Last data filed at 02/09/2021 1028 Gross per 24 hour Intake 2323 ml Output 950 ml Net 1373 ml Patient Vitals for the past 168 hrs: Weight 02/05/21 0000 110.8 kg (244 lb 4.3 oz) 02/04/21 1209 110.7 kg (244 lb 0.8 oz) Body mass index is 35.37 kg/m??. GEN: obese man, moderate distress HEENT: MMM CARDS: RRR, no murmur heard PULM: CTAB posterior lung aldridge with quiet wheeze in the bilateral lower posterior lung aldridge ABD: soft, distended. Mild diffuse tenderness througout EXT: no LE edema SKIN: no rash noted NEURO: awake and conversant. Moving around in bed with only mild difficulty due to pain Studies reviewed in eDH. Remarkable for the following: LABS: Last 3 wbc, hgb, hct plt Recent Labs 02/09/21 0440 02/08/21 0829 02/07/21 1357 WBC 14.8* 13.4* 13.7* HGB 9.5* 10.9* 11.4* HCT 27.9* 31.0* 32.5* PLATELET 181 133* 154 Last 3 Lytes Recent Labs 02/09/21 0440 02/08/21 0829 02/07/21 1357 NA 136 137 137 K 3.2* 3.6 3.3* CL 100 103 102 CO2 25 22 23 BUN 11 8* 10 CREATININE 0.70* 0.50* 0.61* Last 3 LFTs Recent Labs 02/09/21 0440 02/07/21 1357 02/06/21 0326 AST 24 36 39 ALT 34 41 44 ALKPHOS 78 88 76 BILITOT 0.6 0.9 1.4* BILIDIR 0.2 -- -- FSBG Trend Recent Labs 02/09/21 1541 02/09/21 1219 02/09/21 0848 02/08/21 2117 02/08/21 1618 02/08/21 1311 02/08/21 0740 02/07/21 2150 02/07/21 2040 02/07/21 1830 POCGLU 129 126 166 233* 209* 286* 200* 227* 222* 222* MICRO: No results for input(s): URINECULTURE in the last 720 hours. No results for input(s): GRAMSTAIN, BFCX, LOWERRESPCX, TISSUECX in the last 720 hours. Recent Labs 02/04/21 1230 02/04/21 1257 BLOODCX No growth at 5 days. No growth at 5 days. ECG: Recent Labs 02/05/21 1649 DIAGLINE Sinus tachycardia with Premature atrial complexes with Aberrant conduction Abnormal ECG When compared with ECG of 04-FEB-2021 12:42, Aberrant conduction is now Present Confirmed by MD Kermit, Gary ([id number]) on 02/06/2021 2:56:26 PM QTCCALC 462 VASCULAR: No results for input(s): VBTEXTRPT in the last 720 hours. IMAGING: Results for orders placed or performed during the hospital encounter of 02/04/21 XR Chest One View (Exam End: 02/04/2021 12:51 PM) Impression New endotracheal tube placement since the previous study, tip approximately 7 cm above the fide. Nasogastric tube, tip in stomach No other interval change. Hypoinflation. LEFT basilar focal atelectasis and/or pneumonia. Thank you for letting us participate in the care of this patient. If you are a health care provider and have any questions regarding this report, please contact the number below. For patients who have questions please contact the health live in caregiver that requested your imaging first. Electronically signed by: Aniket Medina MD, [facility] ([phone]), at 02/04/2021 1:19 PM XR Abdomen 1 view (Generic) (Exam End: 02/04/2021 12:51 PM) Impression FINDINGS/IMPRESSION: The enteric tube which appears over the region of the stomach on chest radiograph dated 02/04/2021 at 12:34 hours is not seen on this exam obtained 2 minutes later. If the enteric tube was not manipulated between these 2 studies it is likely that the [id number] of this study does not include the enteric tube positioned in the upper abdomen. If the enteric tube was manipulated then it's position is unknown. Stool in the ascending colon and cecum. I have personally reviewed the image(s) and the resident's interpretation and agree with the findings, Ruslan Quintanilla MD at 02/04/2021 2:31 PM Thank you for letting us participate in the care of this patient. If you are a health care provider and have any questions regarding this report, please contact the number below. For patients who have questions please contact the health live in caregiver that requested your imaging first. Electronically signed by: Ruslan Quintanilla MD, [facility] ([phone]), at 02/04/2021 2:31 PM XR Chest PA & Lateral (Generic) (Exam End: 02/06/2021 9:10 PM) Impression Improved bibasilar atelectasis. Very small pleural effusions. Thank you for letting us participate in the care of this patient. If you are a health care provider and have any questions regarding this report, please contact the number below. For patients who have questions please contact the health live in caregiver that requested your imaging first. Electronically signed by: Daisy Larsen MD, [facility] ([phone]), at 02/07/2021 8:[address] Abdomen & Pelvis w Contrast (Exam End: 02/07/2021 11:22 PM) Impression 1. Necrotizing pancreatitis. 2. Interval necrosis of pancreatic segments as described in the body the report without ductal dilation concerning for duct disruption. 3. Progression of peripancreatic edema and inflammatory stranding and ascites. 4. Cholesterol stones evident in the gallbladder. Thank you for letting us participate in the care of this patient. If you are a health care provider and have any questions regarding this report, please contact the number below. For patients who have questions please contact the health live in caregiver that requested your imaging first. Electronically signed by: Deepika Ramsey MD, [facility] ([phone]), at 02/08/2021 10:43 AM XR Chest One View (Exam End: 02/08/2021 11:15 PM) Impression Low lung volume exam with evidence of bibasilar effusion and or airless lung. Thank you for letting us participate in the care of this patient. If you are a health care provider and have any questions regarding this report, please contact the number below. For patients who have questions please contact the health live in caregiver that requested your imaging first. Electronically signed by: Wyatt Mitchell MD, [facility] ([phone]), at 02/09/2021 1:00 AM Assessment: 55-year-old male with diabetes, hypertension due to hyperaldosteronism, and history of alcohol use disorder accepted in transfer from [facility] with gallstone pancreatitis complicated by ascending cholangitis, acute kidney injury, acute respiratory failure requiring intubation and transferred to our facility. ??It appears in the interim he passed his gallstone which was the presumed etiology of all of the above, he was extubated easily and primary issues now are pain and hypertension. Plan: #acute gallstone pancreatitis: with necrotizing pancreatitis seen on 02/08/21 CT scan. BUN dropped from 25 on admission to 8 this AM (02/08/21). Pain has been improving with the addition of regular oral pain medication - advance diet to clear liquid - no evidence at the moment of infected necrosis or encapsulated necrosis, so no indication for invention on necrotic pancreatic tissue - per GI consider ERCP in 4-6 weeks - need to revisit the possibility of cholecystectomy during this admission - poor pain control with IV Dilaudid alone. Current pain regimen: - 10 mg PO oxycodone q4 hours scheduled - stop IV Dilaudid. I told him I would sparingly give intermittent doses if needed - scheduled Tylenol - PRN 600 mg ibuprofen #uncontrolled HTN: etiology likely poorly controlled pain. Greatly improved today - decrease lisinopril to 20 mg daily - decrease spironolactone to 25 mg BID - continue amlodipine 10 mg - stop terazosin 2 mg BID #concern for cholangitis: fevers on admission, although no significant LFT abnormalities. No positive culture data. I called [facility] on 02/08/21 and confirmed that blood cultures were negative at 120 hours - antibiotics stopped 02/08/21 #T2DM: better control today - insulin glargine 15 units nightly - sliding scale moderate correction - low threshold to add mealtime insulin when taking PO DIET: clear liquid ACCESS: PIV LINES/TUBES: none Ppx: LMWH CODE: full FAMILY UPDATE: left a message with daughter Pratima 02/08/21 LABS: daily DISPO: anticipate home pending improvement in abdominal pain and ability to tolerate a diet Team Pager( Coverage 11/01): #[phone] PCP: Peña Turner DO [phone] Attestation: IPI Certification I certify that I am a D-H credentialed attending provider with admitting privileges and that the patient meets or has met medical necessity to require an inpatient IPI level of care meeting a minimumof two midnights or is on the [facility] inpatient only procedure list (status C) due to: uncontrolled pain requiring titration of medications to achieve optimal effect and to minimize immediate or severe side effects Imtiaz Whatley MD 02/09/2021 * Imtiaz Whatley MD - 02/08/2021 9:41 AM EDT [facility] Medicine Attending Daily Progress Note Admit Date: 02/04/2021 Hospital Day 4 days Active Hospital Problems Diagnosis ??? Hypertensive crisis ??? Gallstone pancreatitis ??? Insulin resistance (high c-peptide 8.2 on 08/12/18 and low HDL 34) ??? Diabetes mellitus diagnosed at age 49 (A1c 6.8% in Jun 2015) ??? Hypertension ??? Obesity ??? Hypokalemia Resolved Hospital Problems Diagnosis Date Resolved ??? Acute respiratory failure 02/05/2021 ??? GRICELDA (acute kidney injury) 02/06/2021 [facility] Active Non-Hospital Problems Diagnosis ??? Vitamin D deficiency ??? Adrenal nodule Inpatient Medications: Scheduled ??? acetaminophen 975 mg Oral Q8H ??? [START ON 02/09/2021] lisinopriL 40 mg Oral Daily ??? spironolactone 50 mg Oral BID ??? oxyCODONE 10 mg Oral Q6H ??? amLODIPine 10 mg Oral Daily ??? terazosin 2 mg Oral BID ??? amoxicillin-clavulanate 1 tablet Oral BID ??? polyethylene glycoL (MIRALAX) oral powder 17 g Oral BID ??? aspirin 81 mg Oral Daily ??? senna-docusate 1 tablet Oral BID ??? melatonin 6 mg Oral Nightly ??? heparin (porcine) 5,000 Units Subcutaneous Q8H GENIE ??? sodium chloride 0.9 % (flush) 5 mL Intravenous BID ??? insulin lispro 1-5 Units Subcutaneous TID AC ??? lidocaine 3 patch Transdermal Q24H And ??? lidocaine 3 patch Transdermal Q24H Continuous infusions: ??? dextrose 5% lactated ringers PRN: ibuprofen, HYDROmorphone, iohexoL, cyclobenzaprine, hydrALAZINE, labetaloL, sodium chloride 0.9 % (flush), lidocaine, glucose 40% oral geL OR dextrose 10% OR glucagon Interval History: - ongoing abdomen and lower back pain. Improved when given IV opiates but he says that this effect generally wears off before he he due for his next dose two hours later. This pain is similar in character to the pain he has had throughout his hospitalization - he complains of intermittent dyspnea that he associates with tachypnea from his pain - no other complaints, including fevers, headache, chest pain ROS: A full 14-point review of systems was conducted and is negative except as noted above Physical Exam Vitals Range last 24 hrs Temperature Temp: [36.8 ??C (98.2 ??F)-37.3 ??C (99.1 ??F)] Heart Rate Heart Rate: -- Blood Pressure BP: (172-202)/(102-110) Respiratory Rate Resp: [22-26] SpO2 SpO2: [92 %-97 %] Intake/Output Summary (Last 24 hours) at 02/08/2021 0941 Last data filed at 02/08/2021 0744 Gross per 24 hour Intake 2625 ml Output 2000 ml Net 625 ml Patient Vitals for the past 168 hrs: Weight 02/05/21 0000 110.8 kg (244 lb 4.3 oz) 02/04/21 1209 110.7 kg (244 lb 0.8 oz) Body mass index is 35.37 kg/m??. GEN: obese man, moderate distress HEENT: MMM CARDS: RRR, no murmur heard PULM: CTAB posterior lung aldridge with quiet wheeze in the bilateral lower posterior lung aldridge ABD: soft, distended. Mild diffuse tenderness througout EXT: no LE edema SKIN: no rash noted NEURO: awake and conversant. Moving around in bed with only mild difficulty due to pain Studies reviewed in eDH. Remarkable for the following: LABS: Last 3 wbc, hgb, hct plt Recent Labs 02/08/21 0829 02/07/21 1357 02/06/21 0326 WBC 13.4* 13.7* 16.5* HGB 10.9* 11.4* 11.2* HCT 31.0* 32.5* 32.7* PLATELET 133* 154 140* Last 3 Lytes Recent Labs 02/08/21 0829 02/07/21 1357 02/06/21 0326 NA 137 137 137 K 3.6 3.3* 3.5 CL 103 102 103 CO2 22 23 20* BUN 8* 10 12 CREATININE 0.50* 0.61* 0.66* Last 3 LFTs Recent Labs 02/07/21 1357 02/06/21 0326 02/05/21 0230 AST 36 39 48* ALT 41 44 53 ALKPHOS 88 76 63 BILITOT 0.9 1.4* 1.3 FSBG Trend Recent Labs 02/08/21 0740 02/07/21 2150 02/07/21 2040 02/07/21 1830 02/07/21 1611 02/07/21 1127 02/07/21 0750 02/06/21 2025 02/06/21 1645 02/06/21 1055 POCGLU 200* 227* 222* 222* 314* 250* 230* 245* 240* 211* MICRO: No results for input(s): URINECULTURE in the last 720 hours. No results for input(s): GRAMSTAIN, BFCX, LOWERRESPCX, TISSUECX in the last 720 hours. Recent Labs 02/04/21 1230 02/04/21 1257 BLOODCX No growth at 3 days. No growth at 3 days. ECG: Recent Labs 02/05/21 1649 DIAGLINE Sinus tachycardia with Premature atrial complexes with Aberrant conduction Abnormal ECG When compared with ECG of 04-FEB-2021 12:42, Aberrant conduction is now Present Confirmed by MD Kermit, Gary ([id number]) on 02/06/2021 2:56:26 PM QTCCALC 462 VASCULAR: No results for input(s): VBTEXTRPT in the last 720 hours. IMAGING: Results for orders placed or performed during the hospital encounter of 02/04/21 XR Chest One View (Exam End: 02/04/2021 12:51 PM) Impression New endotracheal tube placement since the previous study, tip approximately 7 cm above the fide. Nasogastric tube, tip in stomach No other interval change. Hypoinflation. LEFT basilar focal atelectasis and/or pneumonia. Thank you for letting us participate in the care of this patient. If you are a health care provider and have any questions regarding this report, please contact the number below. For patients who have questions please contact the health live in caregiver that requested your imaging first. Electronically signed by: Aniket Medina MD, [facility] ([phone]), at 02/04/2021 1:19 PM XR Abdomen 1 view (Generic) (Exam End: 02/04/2021 12:51 PM) Impression FINDINGS/IMPRESSION: The enteric tube which appears over the region of the stomach on chest radiograph dated 02/04/2021 at 12:34 hours is not seen on this exam obtained 2 minutes later. If the enteric tube was not manipulated between these 2 studies it is likely that the [id number] of this study does not include the enteric tube positioned in the upper abdomen. If the enteric tube was manipulated then it's position is unknown. Stool in the ascending colon and cecum. I have personally reviewed the image(s) and the resident's interpretation and agree with the findings, Ruslan Quintanilla MD at 02/04/2021 2:31 PM Thank you for letting us participate in the care of this patient. If you are a health care provider and have any questions regarding this report, please contact the number below. For patients who have questions please contact the health live in caregiver that requested your imaging first. Electronically signed by: Ruslan Quintanilla MD, [facility] ([phone]), at 02/04/2021 2:31 PM XR Chest PA & Lateral (Generic) (Exam End: 02/06/2021 9:10 PM) Impression Improved bibasilar atelectasis. Very small pleural effusions. Thank you for letting us participate in the care of this patient. If you are a health care provider and have any questions regarding this report, please contact the number below. For patients who have questions please contact the health live in caregiver that requested your imaging first. Electronically signed by: Daisy Larsen MD, [facility] ([phone]), at 02/07/2021 8:05 AM Assessment: 55-year-old male with diabetes, hypertension due to hyperaldosteronism, and history of alcohol use disorder accepted in transfer from [facility] with gallstone pancreatitis complicated by ascending cholangitis, acute kidney injury, acute respiratory failure requiring intubation and transferred to our facility. ??It appears in the interim he passed his gallstone which was the presumed etiology of all of the above, he was extubated easily and primary issues now are pain and hypertension. Plan: #acute gallstone pancreatitis: with necrotizing pancreatitis seen on 02/08/21 CT scan. Worsening pain overnight and this morning, specifically worse after eating. BUN dropped from 25 on admission to 8this AM (02/08/21) - NPO with sips for now. D5 LR while NPO to avoid hypovolemia - will need to discuss enteral feeding tomorrow if still unable to tolerate a diet - no evidence at the moment of infected necrosis or encapsulated necrosis, so no indication for invention on necrotic pancreatic tissue - per GI consider ERCP in 4-6 weeks - need to revisit the possibility of cholecystectomy during this admission - poor pain control with IV Dilaudid alone. Change pain regimen to: - 10 mg PO oxycodone q6 hours scheduled (a higher equivalent dose than his 24 hour Dilaudid Requirements) - 0.8 mg IV Dilaudid q3 hours if oxycodone not adequate - scheduled Tylenol - PRN 600 mg ibuprofen #uncontrolled HTN: etiology likely poorly controlled pain - increase lisinopril to 40 mg daily - increase spironolactone to 50 mg BID - continue amlodipine 10 mg - continue terazosin 2 mg BID - PRN labetalol and hydralazine available #concern for cholangitis: fevers on admission, although no significant LFT abnormalities. No positive culture data. I called [facility] on 02/08/21 and confirmed that blood cultures were negative at 120 hours - stop antibiotics #history of etOH abuse: no recent alcohol - stop CIWA #T2DM: fingerstick glucose this afternoon up to 280 - add insulin glargine 15 units nightly - increase sliding scale to moderate correction - add mealtime insulin when taking PO DIET: NPO with sips ACCESS: PIV LINES/TUBES: none Ppx: LMWH CODE: full FAMILY UPDATE: left a message with daughter Pratima 02/08/21 LABS: daily DISPO: anticipate home pending improvement in abdominal pain and ability to tolerate a diet Team Pager( Coverage 11/01): #[phone] PCP: Peña Turner DO [phone] Attestation: IPI Certification I certify that I am a D-H credentialed attending provider with admitting privileges and that the patient meets or has met medical necessity to require an inpatient IPI level of care meeting a minimumof two midnights or is on the [facility] inpatient only procedure list (status C) due to: uncontrolled pain requiring titration of medications to achieve optimal effect and to minimize immediate or severe side effects Imtiaz Whatley MD 02/08/2021 * Ja Tanner MD - 02/07/2021 9:54 AM EDT Hospital Medicine Attending Daily Progress Note Admit Date: 02/04/2021 Hospital Day 3 days Active Hospital Problems Diagnosis ??? Hypertensive crisis ??? Gallstone pancreatitis ??? Insulin resistance (high c-peptide 8.2 on 08/12/18 and low HDL 34) ??? Diabetes mellitus diagnosed at age 49 (A1c 6.8% in Jun 2015) ??? Hypertension ??? Obesity ??? Hypokalemia Resolved Hospital Problems Diagnosis Date Resolved ??? Acute respiratory failure 02/05/2021 ??? GRICELDA (acute kidney injury) 02/06/2021 PMH Active Non-Hospital Problems Diagnosis ??? Vitamin D deficiency ??? Adrenal nodule Inpatient Medications: Scheduled ??? amLODIPine 10 mg Oral Daily ??? lisinopriL 20 mg Oral Daily ??? spironolactone 25 mg Oral BID ??? HYDROmorphone 0.6 mg Intravenous Once ??? amoxicillin-clavulanate 1 tablet Oral BID ??? polyethylene glycoL (MIRALAX) oral powder 17 g Oral BID ??? aspirin 81 mg Oral Daily ??? senna-docusate 1 tablet Oral BID ??? melatonin 6 mg Oral Nightly ??? heparin (porcine) 5,000 Units Subcutaneous Q8H GENIE ??? sodium chloride 0.9 % (flush) 5 mL Intravenous BID ??? insulin lispro 1-5 Units Subcutaneous TID AC ??? lidocaine 3 patch Transdermal Q24H And ??? lidocaine 3 patch Transdermal Q24H Continuous infusions: PRN: LORazepam OR LORazepam OR LORazepam, HYDROmorphone, cyclobenzaprine, ketorolac, hydrALAZINE, labetaloL, sodium chloride 0.9 % (flush), lidocaine, glucose 40% oral geL OR dextrose 10%OR glucagon, acetaminophen Interval History: excruciating pain overnight minimal po intake ROS: severe unremitting pain in low back - , + abdominal pain. + dyspnea, no CP no fevers. Poor sleep. Physical Exam Vitals Range last 24 hrs Temperature Temp: [36.7 ??C (98.1 ??F)-37.2 ??C (99 ??F)] Heart Rate Heart Rate: -- Blood Pressure BP: (163-211)/(99-122) Respiratory Rate Resp: [22-32] SpO2 SpO2: [94 %-97 %] Intake/Output Summary (Last 24 hours) at 02/07/2021 0954 Last data filed at 02/06/2021 1300 Gross per 24 hour Intake 240 ml Output 500 ml Net -260 ml Patient Vitals for the past 168 hrs: Weight 02/05/21 0000 110.8 kg (244 lb 4.3 oz) 02/04/21 1209 110.7 kg (244 lb 0.8 oz) Body mass index is 35.37 kg/m??. Physical Exam Constitutional: Appearance: He is obese. HENT: Head: Normocephalic. Mouth/Throat: Mouth: Mucous membranes are moist. Eyes: Pupils: Pupils are equal, round, and reactive to light. Cardiovascular: Rate and Rhythm: Tachycardia present. Pulmonary: Comments: tachypneic Abdominal: General: Abdomen is flat. There is no distension. Palpations: Abdomen is soft. There is mass. Tenderness: There is abdominal tenderness. There is no guarding or rebound. Genitourinary: Penis: Normal. Musculoskeletal: General: Normal range of motion. Cervical back: Normal range of motion. Skin: General: Skin is warm and dry. Neurological: General: No focal deficit present. Mental Status: He is alert. Psychiatric: Thought Content: Thought content normal. Studies reviewed in eDH. Remarkable for the following: LABS: Last 3 wbc, hgb, hct plt Recent Labs 02/06/21 0326 02/05/21 0230 02/04/21 1210 WBC 16.5* 17.1* 20.4* HGB 11.2* 11.8* 13.0* HCT 32.7* 35.4* 39.1* PLATELET 140* 110* 134* FSBG Trend Recent Labs 02/07/21 0750 02/06/21 2025 02/06/21 1645 02/06/21 1055 02/06/21 0808 02/05/21 2050 02/05/21 1612 02/05/21 1143 02/05/21 0814 02/04/21 2109 POCGLU 230* 245* 240* 211* 197 167 156 195 180 150 MICRO: No results for input(s): URINECULTURE in the last 720 hours. No results for input(s): GRAMSTAIN, BFCX, LOWERRESPCX, TISSUECX in the last 720 hours. Recent Labs 02/04/21 1230 02/04/21 1257 BLOODCX No growth at 2 days. No growth at 2 days. ECG: Recent Labs 02/05/21 1649 DIAGLINE Sinus tachycardia with Premature atrial complexes with Aberrant conduction Abnormal ECG When compared with ECG of 04-FEB-2021 12:42, Aberrant conduction is now Present Confirmed by MD Kermit, Gary ([id number]) on 02/06/2021 2:56:26 PM QTCCALC 462 VASCULAR: No results for input(s): VBTEXTRPT in the last 720 hours. Assessment: 55-year-old male with diabetes, hypertension hyperaldosteronism, and history of alcohol use disorder accepted in transfer from [facility] with gallstone pancreatitis complicated by ascending cholangitis, acute kidney injury, acute respiratory failure requiring intubation and transferred to our facility.It appears in the interim he passed his gallstone which was the presumed etiology of all of the above, he was extubated easily and primary issues now are pain and advancement of diet. BP very high today, likely in setting of uncontrolled pain. Blood cultures here are negative, he is on Zosyn and will need to follow-up with outside hospital blood cultures which are negative through 02/06. Plan: Pancreatitis Advance diet Pain control with dilaudid and toradol - titrate to comfort with NBOs Repeat cmp, lipase today, bedside u/s to eval for ascites CIWA in case of etoh w/d although patient states no drinking for 4 months IVF bolus 100's and restart fluids at 150 cc/hr Diabetes - monitor BG's ssi Back pain - pain control as above, try flexeril. HTN Crisis- obtain pain control - cover with hydralazine Goals of Care: Team Pager( Coverage 11/01): #[phone] PCP: Peña Turner DO [phone] Attestation: IPI Certification I certify that I am a D-H credentialed attending provider with admitting privileges and that the patient meets or has met medical necessity to require an inpatient IPI level of care meeting a minimumof two midnights or is on the [facility] inpatient only procedure list (status C) due to: uncontrolled pain requiring titration of medications to achieve optimal effect and to minimize immediate or severe side effects JA TANNER MD 02/07/2021 * Ja Tanner MD - 02/06/2021 1:41 PM EDT Hospital Medicine Attending Daily Progress Note Admit Date: 02/04/2021 Hospital Day 2 days Active Hospital Problems Diagnosis ??? Hypertensive crisis ??? Gallstone pancreatitis ??? Insulin resistance (high c-peptide 8.2 on 08/12/18 and low HDL 34) ??? Diabetes mellitus diagnosed at age 49 (A1c 6.8% in Jun 2015) ??? Hypertension ??? Obesity ??? Hypokalemia Resolved Hospital Problems Diagnosis Date Resolved ??? Acute respiratory failure 02/05/2021 ??? GRICELDA (acute kidney injury) 02/06/2021 PMH Active Non-Hospital Problems Diagnosis ??? Vitamin D deficiency ??? Adrenal nodule Inpatient Medications: Scheduled ??? polyethylene glycoL (MIRALAX) oral powder 17 g Oral BID ??? lisinopriL 20 mg Oral Daily ??? spironolactone 25 mg Oral BID ??? aspirin 81 mg Oral Daily ??? senna-docusate 1 tablet Oral BID ??? melatonin 6 mg Oral Nightly ??? heparin (porcine) 5,000 Units Subcutaneous Q8H GENIE ??? sodium chloride 0.9 % (flush) 5 mL Intravenous BID ??? piperacillin-tazobactam 3.375 g Intravenous Q8H ??? amLODIPine 5 mg Oral Daily ??? insulin lispro 1-5 Units Subcutaneous TID AC ??? lidocaine 3 patch Transdermal Q24H And ??? lidocaine 3 patch Transdermal Q24H Continuous infusions: PRN: hydrALAZINE, cyclobenzaprine, HYDROmorphone, ketorolac, sodium chloride 0.9 % (flush), lidocaine, glucose 40% oral geL OR dextrose 10% OR glucagon, acetaminophen Interval History: transferred to floor ROS: severe unremitting pain in low back - paraspinal region bilaterally, + abdominal pain. + dyspnea, no CP no fevers. Poor sleep. Physical Exam Vitals Range last 24 hrs Temperature Temp: [36.6 ??C (97.9 ??F)-37.1 ??C (98.8 ??F)] Heart Rate Heart Rate: [92-128] Blood Pressure BP: (165-196)/(82-107) Respiratory Rate Resp: [20-35] SpO2 SpO2: [92 %-95 %] Intake/Output Summary (Last 24 hours) at 02/06/2021 1341 Last data filed at 02/06/2021 1208 Gross per 24 hour Intake 1469 ml Output 2500 ml Net -1031 ml Patient Vitals for the past 168 hrs: Weight 02/05/21 0000 110.8 kg (244 lb 4.3 oz) 02/04/21 1209 110.7 kg (244 lb 0.8 oz) Body mass index is 35.37 kg/m??. Physical Exam Constitutional: Appearance: He is obese. HENT: Head: Normocephalic. Mouth/Throat: Mouth: Mucous membranes are moist. Eyes: Pupils: Pupils are equal, round, and reactive to light. Cardiovascular: Rate and Rhythm: Tachycardia present. Pulmonary: Comments: tachypneic Abdominal: General: Abdomen is flat. There is no distension. Palpations: Abdomen is soft. There is mass. Tenderness: There is abdominal tenderness. There is no guarding or rebound. Genitourinary: Penis: Normal. Musculoskeletal: General: Normal range of motion. Cervical back: Normal range of motion. Skin: General: Skin is warm and dry. Neurological: General: No focal deficit present. Mental Status: He is alert. Psychiatric: Thought Content: Thought content normal. Studies reviewed in eDH. Remarkable for the following: LABS: Last 3 wbc, hgb, hct plt Recent Labs 02/06/21 0326 02/05/21 0230 02/04/21 1210 WBC 16.5* 17.1* 20.4* HGB 11.2* 11.8* 13.0* HCT 32.7* 35.4* 39.1* PLATELET 140* 110* 134* FSBG Trend Recent Labs 02/06/21 1055 02/06/21 0808 02/05/21 2050 02/05/21 1612 02/05/21 1143 02/05/21 0814 02/04/21 2109 02/04/21 1814 02/04/21 1204 POCGLU 211* 197 167 156 195 180 150 160 143 MICRO: No results for input(s): URINECULTURE in the last 720 hours. No results for input(s): GRAMSTAIN, BFCX, LOWERRESPCX, TISSUECX in the last 720 hours. Recent Labs 02/04/21 1230 02/04/21 1257 BLOODCX No growth at 1 day. No growth at 1 day. ECG: Recent Labs 02/05/21 1649 DIAGLINE Sinus tachycardia with Premature atrial complexes with Aberrant conduction Otherwise normal ECG When compared with ECG of 04-FEB-2021 12:42, Aberrant conduction is now Present QTCCALC 462 VASCULAR: No results for input(s): VBTEXTRPT in the last 720 hours. Assessment: 55-year-old male with diabetes, hypertension hyperaldosteronism, and history of alcohol use disorder accepted in transfer from [facility] with gallstone pancreatitis complicated by ascending cholangitis, acute kidney injury, acute respiratory failure requiring intubation and transferred to our facility.It appears in the interim he passed his gallstone which was the presumed etiology of all of the above, he was extubated easily and primary issues now are pain and advancement of diet. BP very high today, likely in setting of uncontrolled pain. Blood cultures here are negative, he is on Zosyn and will need to follow-up with outside hospital blood cultures Plan: Pancreatitis Advance diet Pain control with dilaudid and toradol - titrate to comfort with NBOs Diabetes - monitor BG's ssi Back pain - pain control as above, try flexeril. HTN Crisis- obtain pain control - cover with hydralazine Goals of Care: Team Pager( Coverage 11/01): #[phone] PCP: Peña Turner DO [phone] Attestation: IPI Certification I certify that I am a D-H credentialed attending provider with admitting privileges and that the patient meets or has met medical necessity to require an inpatient IPI level of care meeting a minimumof two midnights or is on the [facility] inpatient only procedure list (status C) due to: uncontrolled pain requiring titration of medications to achieve optimal effect and to minimize immediate or severe side effects JA TANNER MD 02/06/2021 * Grisel Suarez RN - 02/06/2021 4:21 AM EDT Pt transferred to floor from ICU around 0130; Pt A&Ox4. Hypertensive otherwise VSS on RA. Continues to endorse pain to generalized back. Managed with PRN toradol and tylenol. IV abx continued perMAR. Bed alarm on. Rested in between care. * Josefina Garcia RN - 02/05/2021 4:04 PM EDT Pt may transfer back to [facility]. Doc to doc conversation to be had with Sr Srivastava to determine acceptance. In the interim will send clinical information. [facility] [place], [place] Josefina Garcia RN MICU Phone [phone] Pager [phone] * Wilbert Mcfadden MD - 02/05/2021 7:57 AM EDT MICU STAFF PROGRESS NOTE SECTION OF PULMONARY & CRITICAL CARE MEDICINE Patient seen and examined, and data reviewed, on critical care rounds. Events in Last 24 Hours: Admitted yesterday intubated for unclear/undocumented reasons. Extubated shortly after admission. Sedation stopped. Labs improving. Evaluated by GI but no note in yet. Back pain overnight. Abdomen distended. Fever overnight. WBC 17 from 20. Bilirubin 1.3. AP 63. Albumin 2.9. Creatinine <1. Lipase 541. Review of Systems: A 12 point ROS was negative aside from as listed in the HPI. Medications: Scheduled Meds: ??? heparin (porcine) 5,000 Units Subcutaneous Q8H [facility] ??? sodium chloride 0.9 % (flush) 5 mL Intravenous BID ??? piperacillin-tazobactam 3.375 g Intravenous Q8H ??? amLODIPine 5 mg Oral Daily ??? insulin lispro 1-5 Units Subcutaneous TID AC ??? lidocaine 3 patch Transdermal Q24H And ??? lidocaine 3 patch Transdermal Q24H Continuous Infusions: ??? dexmedetomidine 1 mcg/kg/hr (02/04/21 1545) ??? propofoL 10 mcg/kg/min (02/04/21 1551) PRN Meds: sodium chloride 0.9 % (flush), lidocaine, glucose 40% oral geL OR dextrose 10% ORglucagon, HYDROmorphone OR HYDROmorphone OR HYDROmorphone, HYDROmorphone, acetaminophen Labs: Lab Results Component Value Date WBC 17.1 (H) 02/05/2021 RBC 3.78 (L) 02/05/2021 HGB 11.8 (L) 02/05/2021 HCT 35.4 (L) 02/05/2021 MCV 93.7 (H) 02/05/2021 MCH 31.2 02/05/2021 MCHC 33.3 02/05/2021 PLATELET 110 (L) 02/05/2021 RDWCV 14.2 (H) 02/05/2021 LFT's Lab Results Component Value Date Alk Phos 63 02/05/2021 AST 48 (H) 02/05/2021 Albumin 2.9 (L) 02/05/2021 Total Bilirubin 1.3 02/05/2021 ALT 53 02/05/2021 Total Protein 5.7 (L) 02/05/2021 LFT's Lab Results Component Value Date Alk Phos 63 02/05/2021 AST 48 (H) 02/05/2021 Albumin 2.9 (L) 02/05/2021 Total Bilirubin 1.3 02/05/2021 ALT 53 02/05/2021 Total Protein 5.7 (L) 02/05/2021 Coags Lab Results Component Value Date INR 1.1 02/04/2021 PT 12.2 02/04/2021 PTT 26 02/04/2021 Recent Labs 02/05/21 0230 GLUCOSE 146 ABG (Arterial Blood Gas) Lab Results Component Value Date pH Art 7.41 02/04/2021 pO2 Art 94 02/04/2021 pCO2 Art 33 (L) 02/04/2021 Objective: Last value Range last 24 hrs Temperature Temp: (!) 38.1 ??C (100.6 ??F) Temp: [36.8 ??C (98.2 ??F)-38.9 ??C (102 ??F)] Heart Rate Heart Rate: (!) 117 Heart Rate: [91-133] Blood Pressure BP: (!) 176/105 BP: (105-200)/(68-105) Respiratory Rate Resp: 28 Resp: [17-40] SpO2 SpO2: 95 % SpO2: [91 %-99 %] Admit Weight 110.7 kg General: Awake, lying in bed, mild distress due to pain Pulmonary/Chest: Clear to auscultation bilaterally, on room air Cardiovascular: Normal S1/S2, regular rate and rhythm Abdomen: Soft, distended, normal active bowel sounds, no peritoneal signs, no inducible abdominal pain with palpation Extremities: No edema, no inducible back pain with palpation along spine or paraspinal muscles Psychiatric: Cooperative Neurologic: Moving all extremities, pupils equal and reactive, alert and oriented x3 Diagnostics: CT chest, abdomen pelvis performed 02/02/21 at [facility] Abdominal US and MRCP performed 02/03/21 at [facility] 02/04/21 AXR: The enteric tube which appears over the region of the stomach on chest radiograph dated 02/04/2021 at 12:34 hours is not seen on this exam obtained 2 minutes later. If the enteric tube was not manipulated between these 2 studies it is likely that the [id number] of this study does not include the enteric tube positioned in the upper abdomen. If the enteric tube was manipulated then it's position is unknown. ?? Stool in the ascending colon and cecum. 02/04/21 CXR: New endotracheal tube placement since the previous study, tip approximately 7 cm above the fide. Nasogastric tube, tip in stomach No other interval change. Hypoinflation. LEFT basilar focal atelectasis and/or pneumonia. ? Ventilator: N/A ?? Assessment: Pancho Babb is a 55 y.o. gentleman admitted to the MICU in transfer from [facility] on 02/04/21 with question of acute suppurative ascending cholangitis versus gallstone pancreatitis with choledocholithiasis. Choledocholithiasis with CBD of 10 mm on MRCP at [facility] prior to admission. Intubated at [facility] due to encephalopathy and hallucinations however not clear to me if this was due to iatrogenic dissociation while on ketamine. Shortly after arrival here we discontinued his sedation and extubated him. Heremains alert and oriented x3 without sedation requirements. His liver function tests have improvedand his abdominal pain has mostly resolved. He is constipated but passing gas. Escalating his diet and bowel regimen. His main complaint is low back pain which he attributes to musculoskeletal etiology. He remains on empiric Zosyn for the time being, leukocytosis improved, still having intermittentfevers. Plan is as follows... ?? Plan: ?? Follow-up outside blood cultures ?? Follow-up 02/04/21 [facility] blood cultures ?? Continue Zosyn ?? Wean oxygen to off ?? Awaiting GI note/recs from yesterday ?? Advance home hypertensive regimen (Endocrine manages as outpatient) ?? Advance diet ?? Advance bowel regimen ?? PRN pain control ?? Out of bed ?? Transfer out of ICU IS PATIENT CRITICALLY ILL? Is there a high potential of sudden, clinically significant, or life threatening deterioration? Yes Is there a need for direct personal assessment and management to treat/prevent multiple vital organfailure/deterioration? Yes If this patient is not critically ill, I certify the patient requires continued in-patient hospitalization for [] PATIENT IS CRITICALLY ILL WITH THESE DIAGNOSES BEING MANAGED BY [facility] TEAM: Gallstone pancreatitis Choledocholithiasis Possible acute ascending cholangitis Acute toxic/metabolic encephalopathy Hypertensive urgency ?? I personally performed 30 minutes of aggregate critical care time exclusive of procedures and teaching. This includes time spent during direct patient evaluation and reassessment, interpreting diagnostic tests, directing life and/or organ supporting interventions and documentation on the unit. Wilbert Mcfadden MD, 02/05/2021, 7:57 AM Pulmonary & Critical Care Pager: [phone] * Giancarlo Aviles - 02/05/2021 6:56 AM EDT ICU Blue (#[id number]) Progress Note Patient info: Name: Pancho Babb : 1965 PCP: Peña Turner DO PCP phone number: [phone] Date of Admission: 02/04/2021 ( Hospital Day 1 day ) Attending:Wilbert Mcfadden MD ID: Pancho Babb is a 55 y.o. male with a past medical history of alcohol use disorder, HTN, hypokalemia (due to primary hyper-aldosteronism due to bilateral adrenal nodular hyperplasia followed by endocrinology, most recent Endocrine visit 06/2020) and non-insulin dependent type II DM who was transferred from [facility] intubated and admitted to the MICU for gallstone pancreatitis and choledocholithiasis. 24 Hour Events/Subjective: Yesterday: -- admitted from [facility] intubated for airway protection with likely galstone pancreatitis. -- Extubated yesterday - LFTS and lipase were downtrending - no urgent ERCP by GI -- Overnight: -- Continued to be in pain requiring PO and IV dilaudid Objective: Vitals Last value Range last 24 hrs Temperature Temp: 36.9 ??C (98.4 ??F) Temp: [36.7 ??C (98.1 ??F)-38.9 ??C (102 ??F)] Heart Rate Heart Rate: (!) 123 Heart Rate: [91-133] Blood Pressure BP: (!) 172/111 BP: (105-200)/(68-111) Art Line BP BP (Arterial Line): -- MAP (NBP): [79 mmHg-130 mmHg] Respiratory Rate Resp: (!) 35 Resp: [17-40] SpO2 SpO2: 98 % SpO2: [91 %-99 %] Oxygen Delivery Oxygen Therapy O2 Device: Nasal cannula O2 Flow Rate (L/min): 2 L/min FiO2 (%): 35 % Ventilator Settings: Mode: Servo U Ventilator Mode: PS/CPAP, SET RR: TV: PEEP: FiO2: VARIABLES Tidal Volume Set: 570 Set PEEP (cm H2O): 8 Set FiO2: 35 % PATIENT RR: PIP: Pplateau: SpO2: OUTPUT Resp: (!) 35 Peak Inspiratory Pressure: 12 Plateau Pressure (cm H2O): 24 SpO2: 98 % Vasoactive & Sedating Medications: Infusions: Continuous Infusions: Intake/Output Summary (Last 24 hours) at 02/05/2021 1157 Last data filed at 02/05/2021 1000 Gross per 24 hour Intake 1426.5 ml Output 1970 ml Net -543.5 ml Patient Vitals for the past 168 hrs: Weight 02/05/21 0000 110.8 kg (244 lb 4.3 oz) 02/04/21 1209 110.7 kg (244 lb 0.8 oz) Admit wt: 110.7 kg Physical Exam: General: In some distress from back pain. Eyes: Pupils equal and reactive to light Neck: No JVD. No lymphadenopathy. Chest: Lungs clear to auscultation bilaterally; no wheezing. Heart: Normal S1, S2. Tachycardic and regular rhythm. No murmurs, gallops, rubs. Abdomen: Hypoactive bowel sounds. Distended abdomen. No hepatosplenomegaly. No guarding with palpation. No fluid wave. Is passing gas. Neurological: A & O x 3 Extremities: No edema. Skin: No rashes or significant skin lesions noticed Labs: Recent Labs 02/05/21 0230 02/04/21 1210 WBC 17.1* 20.4* HGB 11.8* 13.0* HCT 35.4* 39.1* PLATELET 110* 134* MCV 93.7* 95.4* Recent Labs 02/05/21 0230 02/04/21 1210 NA 143 141 CL 109* 107 CO2 25 22 K 3.9 4.3 MAGNESIUM -- 0.80 PHOS -- 3.3 CALCIUM 7.6* 7.7* BUN 25* 29* CREATININE 0.97 1.25 LFTs Recent Labs 02/05/21 0230 02/04/21 1210 PROT 5.7* 5.6* ALBUMIN 2.9* 2.9* AST 48* Not Perf ALT 53 66* ALKPHOS 63 61 BILITOT 1.3 0.9 Lipase - 547 Recent Labs 02/05/21 1143 02/05/21 0814 02/04/21 2109 02/04/21 1814 02/04/21 1204 POCGLU 195 180 150 160 143 Microbiology: Blood cultures pending Negative UA Imaging: Results for orders placed or performed during the hospital encounter of 02/04/21 XR Chest One View (Exam End: 02/04/2021 12:51 PM) Impression New endotracheal tube placement since the previous study, tip approximately 7 cm above the fide. Nasogastric tube, tip in stomach No other interval change. Hypoinflation. LEFT basilar focal atelectasis and/or pneumonia. Thank you for letting us participate in the care of this patient. If you are a health care provider and have any questions regarding this report, please contact the number below. For patients who have questions please contact the health live in caregiver that requested your imaging first. Electronically signed by: Aniket Medina MD, [facility] ([phone]), at 02/04/2021 1:19 PM XR Abdomen 1 view (Generic) (Exam End: 02/04/2021 12:51 PM) Impression FINDINGS/IMPRESSION: The enteric tube which appears over the region of the stomach on chest radiograph dated 02/04/2021 at 12:34 hours is not seen on this exam obtained 2 minutes later. If the enteric tube was not manipulated between these 2 studies it is likely that the [id number] of this study does not include the enteric tube positioned in the upper abdomen. If the enteric tube was manipulated then it's position is unknown. Stool in the ascending colon and cecum. I have personally reviewed the image(s) and the resident's interpretation and agree with the findings, Ruslan Quintanilla MD at 02/04/2021 2:31 PM Thank you for letting us participate in the care of this patient. If you are a health care provider and have any questions regarding this report, please contact the number below. For patients who have questions please contact the health live in caregiver that requested your imaging first. Electronically signed by: Ruslan Quintanilla MD, [facility] ([phone]), at 02/04/2021 2:31 PM Medications Scheduled Meds: ??? polyethylene glycoL (MIRALAX) oral powder 17 g Oral BID ??? lisinopriL 20 mg Oral Daily ??? spironolactone 25 mg Oral BID ??? aspirin 81 mg Oral Daily ??? senna-docusate 1 tablet Oral BID ??? heparin (porcine) 5,000 Units Subcutaneous Q8H GENIE ??? sodium chloride 0.9 % (flush) 5 mL Intravenous BID ??? piperacillin-tazobactam 3.375 g Intravenous Q8H ??? amLODIPine 5 mg Oral Daily ??? insulin lispro 1-5 Units Subcutaneous TID AC ??? lidocaine 3 patch Transdermal Q24H And ??? lidocaine 3 patch Transdermal Q24H Continuous Infusions: PRN Meds:.sodium chloride 0.9 % (flush), lidocaine, glucose 40% oral geL OR dextrose 10% ORglucagon, HYDROmorphone, acetaminophen Assessment & Plan: Pancho Babb is a 55 y.o. male with a past medical history of alcohol use disorder, HTN, hypokalemia (due to primary hyper-aldosteronism due to bilateral adrenal nodular hyperplasia followed by endocrinology, most recent Endocrine visit 06/2020) and non-insulin dependent type II DM who was transferred from [facility] intubated and admitted to the MICU for gallstone pancreatitis and choledocholithiasis. Overall from a respiratory perspective the patient is improving after extubation last night, satting well on 2 L NC. We have also continued to see down trending LFTs likely in the setting that the patient has passed his gallstone. GI has been following and they think that there is not indication for an urgent/emergent ERCP but should be done as an outpatient as this would be the safer option withhis acute pancreatitis. He is also having desire at this point to drink fluids and we will start the patient on a clear liquid diet today. His pain has not been adequately controlled with PO dilaudidand we will continue IV dilaudid now as well as increase in bowel regimen as he has not any BM since admission. For his hypertension given his GRICELDA is now resolved we will start his home medications. We will also continue antibiotics at this time for intermittent fever and lack of blood culture databut we will let the hospital medicine decide if they want to keep antibiotics as he is now does nothave ICU requirements. ?? Cardiovascular # Hypertension at OSH # Hx of diabetes - Restsart lisinopril and spironlactone today as GRICELDA has resolved - c/w amlodopine - Restart aspirin - Keep K>4, Mg > 1 Pulmonary Patient was intubated for airway protection at OSH - s/p extubation. On 2 L NC.e - s/p negative CT imaging and OSH for PE - s/p likely left basilar atelectasis ?? GI # Gallstone pancreatitis (improving) - Clear liquid diet - c/w Zosyn as continued to fever and no blood culture data - fentanyl pushes for pain - daily LFTs - c/w Zosyn - Consult GI, appreciate recs ?? Renal # GRICELDA at OSH (Resolving) - daily BMP Hematology - daily CBC ?? Endocrine # DMII Holding home metformin ISS ?? ID # Cholangitis? - c/w zosyn - s/p unremarkable UA - s/p unremarkable CXR - f/u BC x2 - f/u OSH BC ? #Routine Diet: Clear Liquid DVT PPX: sub q heparin GI PPX: None indicated Lines/Tubes/Drains: PIV CODE STATUS: Attempt Cardiopulmonary Resuscitation - Inpatient Dispo: Pending clinical course iGancarlo Aviles MD Internal Medicine, PGY-2 Blue Team #[id number] 02/05/21 11:57 AM Associated attestation - Wilbert Mcfadden MD - 02/05/2021 12:19 PM EDT Agree with as stated. Please see my separate MICU note for additional details. Wilbert Mcfadden MD, 02/05/2021, 12:19 PM MICU Attending Section of Pulmonary & Critical Care Pager: [phone] * Wilbert Mcfadden MD - 02/04/2021 10:51 AM EDT Images from the original note were not included. MICU STAFF ADMISSION NOTE SECTION OF PULMONARY & CRITICAL CARE MEDICINE History of Present Illness: Patient seen and examined on admission to the ICU. Pancho Babb is a 55 y.o. year old gentleman being admitted to [facility] [facility] in transfer from [facility] intubated with choledocholithiasis and need for GI evaluation. Little is known so far about what actually transpired at [facility]. From what has been explained to me, Mr. Babb was admitted there on 02/03/2021 after the development of acute onset abdominal pain the dayprior (02/02/2021). He was found to have gallstone pancreatitis (lipase over 15,000 with subsequent downtrend) with stones noted in both the gallbladder and common bile duct from an outside hospital second read on the CT abdomen/pelvis obtained there. An MRCP was performed which apparently demonstrated a stone(s) in the common bile duct which measured 10 mm. He was started at some point on meropenem for concern of acute ascending cholangitis after the development of fevers yesterday. We're told t here is an up-trending leukocytosis without significant hyperbilirubinemia/jaundice, unclear if fevers, not hypotensive/in shock, and unclear if any encephalopathy. Throughout the admission he has been maintained on a nicardipine drip; he does have a history of hypertension and diabetes for which she is followed by endocrinology at [facility] for work-up of primary causes given prior history of hypokalemia and elevated aldosterone/low renin. From what were told by phone, pulmonology was consulted at some point for unclear reasons and the patient was subsequently intubated for reasons that the [facility] transferring provider cannot explain to us. As best we can tell there were no documented reports of hypoxemic or hypercarbic respiratory failure. We do not know why the patient is intubated. The patient is otherwise hemodynamically stable and sedated at the time of transfer request. For some period of time the patient was receiving 300 mL/hr of crystalloid (unclear how much prior resuscitation received) which was more recently cut back to 100 mL/hr. Transfer to [facility] for GI evaluation was initially sought however they did not have any beds and so [facility] was contacted instead. Past medical history includes hypertension (being worked up for hyperaldosteronism), obesity, type 2 diabetes mellitus, hypertension, and metabolic syndrome. Question of prior EtOH abuse but this mayhave been more remote. Upon arrival here, he is intubated and sedated on Propofol 50 mcg/kg/min and received additional fentanyl boluses en route apparently. He is hemodynamically stable not on vasopressors. Our nurse did get additional information about his intubation at [facility] and tells me he was intubated this there AM due to hallucinations, agitation, and worsening encephalopathy. The main indication for intubation was airway protection. He was also noted to look mottled at the time. He was never hemodynamically unstable and has been maintained on minimal vent support throughout. It's possible he was started on aKetamine gtt yesterday prior to intubation but none of this is entirely clear. Review of Systems: A 12 point ROS was negative aside from as listed in the HPI. Past Medical/Surgical History: ??? Patient Active Problem List ??? Diagnosis ??? Code ? Diabetes mellitus diagnosed at age 49 (A1c 6.8% in Jun 2015) ??? E11.9 ? Hypertension ??? I10 ? Obesity ??? E66.9 ? Hypokalemia ??? E87.6 ? Adrenal nodule ??? E27.8 ? Insulin resistance (high c-peptide 8.2 on 08/12/18 and low HDL 34) ??? E88.81 ? Vitamin D deficiency ??? E55.9 ?? Medications: Prior to Admission medications Medication Sig Start Date End Date Taking? Authorizing Provider metFORMIN XR (Glucophage XR) 500 mg Tablet Sustained Release 24 hr Take 3 tablets by mouth daily. 06/24/20 Celso Raza MD ergocalciferoL, vitamin D2, (vitamin D) 50,000 unit Capsule Take 1 capsule by mouth once a week. 06/24/20 Celso Raza MD metFORMIN (FORTAMET) 500 mg Tablet Extended Rel 24 hr Take 2 tablets by mouth daily. 02/21/19 Celso Raza MD spironolactone (ALDACTONE) 25 mg Tablet TAKE ONE TABLET BY MOUTH TWICE A DAY 05/23/18 Celso Raza MD amLODIPine (NORVASC) 5 mg Tablet 5 mg daily. 02/02/17 PROVIDER, HISTORICAL lisinopril (PRINIVIL;ZESTRIL) 20 mg Tablet Take 20 mg by mouth daily. PROVIDER, HISTORICAL aspirin 81 mg Tablet, Delayed Release (E.C.) Take 81 mg by mouth daily. PROVIDER, HISTORICAL Allergies: No Known Allergies Medications: Your Medications UNREVIEWED medications - Discuss With Your Provider Dose Details amLODIPine 5 mg Tab Commonly known as: Norvasc 5 mg daily. 5 mg Refills: 0 aspirin EC 81 mg Tbec Take 81 mg by mouth daily. 81 mg Refills: 0 ergocalciferoL (vitamin D2) 50,000 unit Cap Commonly known as: vitamin D Take 1 capsule by mouth once a week. 50,000 Units Quantity: 13 capsule Refills: 4 lisinopriL 20 mg Tab Commonly known as: Zestril Take 20 mg by mouth daily. 20 mg Refills: 0 * metFORMIN 500 mg Tr24 Commonly known as: FORTAMET Take 2 tablets by mouth daily. 1,000 mg Quantity: 270 tablet Refills: 4 * metFORMIN XR 500 mg Tablet sr Commonly known as: Glucophage XR Take 3 tablets by mouth daily. 1,500 mg Quantity: 270 tablet Refills: 3 spironolactone 25 mg Tab Commonly known as: Aldactone TAKE ONE TABLET BY MOUTH TWICE A DAY Quantity: 180 tablet Refills: 3 * This list has 2 medication(s) that are the same as other medications prescribed for you. Read thedirections carefully, and ask your doctor or other care provider to review them with you. Labs: PENDING Objective: Patient Vitals for the past 24 hrs: Temp Heart Rate From SP02 Pulse Resp BP SpO2 FiO2 (%) O2 Device 02/04/21 1207 -- -- -- 22 -- -- -- -- 02/04/21 1300 -- -- -- 17 -- -- -- -- 02/04/21 1305 -- -- -- 18 -- -- -- -- 02/04/21 1311 37 ??C (98.6 ??F) (!) 107 bpm (!) 107 18 (!) 153/96 98 % 45 % Ventilator 02/04/21 1354 -- -- -- 19 -- 99 % -- -- General: Intubated, sedated, no apparent distress Pulmonary/Chest: CTAB Cardiovascular: Nl s1/s2, RRR Abdomen: Soft, non-tender, non-distended, hypoactive bowel sounds Extremities: No edema Psychiatric: n/a Neurologic: RASS -4, PERRLA Diagnostics: CT chest, abdomen pelvis performed 02/02/21 at [facility] Abdominal US and MRCP performed 02/03/21 at [facility] Ventilator: VC 570/16/+8/35% Assessment: Pancho Babb is a 55 y.o. gentleman admitted to the MICU in transfer from [facility] with question of acute suppurative ascending cholangitis versus gallstone pancreatitis with simply gallstone pancreatitis with choledocholithiasis. Choledocholithiasis with CBD of 10 mm on MRCP at [facility]. Had fevers, leukocytosis and encephalopathy without shock or jaundice. LFT's apparently down-trending at [facility]. Received several liters of resuscitation prior to transfer for his pancreatitis. All admission labs here are still pending. Plan for today includes awaiting pending labs, awaiting pending culture data, continuing empiric antibiotics, engaging GI, weaning sedation, and assessing for candidacy of extubation. Plan: ?? Follow-up outside blood cultures ?? Obtaining repeat culture data here ?? Decrease Vt to 7 cc/kg IBW ?? Decrease PEEP to 5 cmH20 ?? Start Zosyn for time being ?? Convert sedation to Precidex ?? RASS goal 0 to -2 ?? Assess for candidacy of extubation ?? Will need assessment for cholecystectomy prior to discharge ?? GI consultation today ?? LR at 100 mL/hr maintenance fluids IS PATIENT CRITICALLY ILL? Is there a high potential of sudden, clinically significant, or life threatening deterioration? Yes Is there a need for direct personal assessment and management to treat/prevent multiple vital organfailure/deterioration? Yes PATIENT IS CRITICALLY ILL WITH THESE DIAGNOSES BEING MANAGED BY [facility] TEAM: Gallstone pancreatitis Choledocholithiasis Possible acute ascending cholangitis Acute toxic/metabolic encephalopathy Hypertensive urgency I personally performed 45 minutes of aggregate critical care time exclusive of procedures and teaching. This includes time spent during direct patient evaluation and reassessment, interpreting diagnostic tests, directing life and/or organ supporting interventions and documentation on the unit. Wilbert Mcfadden MD, 02/04/2021, 10:52 AM Section of Pulmonary & Critical Care Pager: [phone] documented in this encounter H&P Notes * Ja Tanner MD - 02/05/2021 5:59 PM EDT Inpatient Hospital Medicine - Admission Note Problem List: Active Hospital Problems Diagnosis ??? Gallstone pancreatitis ??? Insulin resistance (high c-peptide 8.2 on 08/12/18 and low HDL 34) ??? Diabetes mellitus diagnosed at age 49 (A1c 6.8% in Jun 2015) ??? Hypertension ??? Obesity ??? Hypokalemia Resolved Hospital Problems Diagnosis Date Resolved ??? Acute respiratory failure 02/05/2021 Active Non-Hospital Problems Diagnosis ??? Vitamin D deficiency ??? Adrenal nodule ID: 55 y.o. Male presents to [facility] with gallstone pancreatitis complicated by ascending cholangitis, acute respiratory failure requiring intubation transferred to our facility for ERCP. History of Present Illness: HPI 55-year-old male with diabetes, hypertension hyperaldosteronism, and history of alcohol use disorder accepted in transfer from [facility] with gallstone pancreatitis complicated by ascending cholangitis, acute respiratory failure requiring intubation and transfer to our facility. It appears in the interim he passed his gallstone which was the presumed etiology of all of the above, he was extubated easily and primary issues now are pain and advancement of diet. Her best understanding is he was intubated for airway compromise and acute encephalopathy not from an intrinsic pulmonary problem. Blood cultures here are negative, he is on Zosyn and will need to follow-up with outside hospital blood cultures . Review of Systems: Review of Systems Feels significant back pain, abdominal pain with movement, short of breath, fatigue, feels like he has not slept in 5 nights. Past Medical and Surgical History: No past medical history on file. Past Surgical History: Procedure Laterality Date ??? PRO COLONOSCOPY, DIAGNOSTIC N/A 01/14/2016 COLONOSCOPY, DIAGNOSTIC performed by Ruslan Taylor MD at [facility] Prior To Admission Medications: Medications Prior to Admission Medication Sig Dispense Refill Last Dose ??? metFORMIN XR (Glucophage XR) 500 mg Tablet Sustained Release 24 hr Take 3 tablets by mouth daily. 270 tablet 3 ??? ergocalciferoL, vitamin D2, (vitamin D) 50,000 unit Capsule Take 1 capsule by mouth once a week. 13 capsule 4 ??? metFORMIN (FORTAMET) 500 mg Tablet Extended Rel 24 hr Take 2 tablets by mouth daily. 270 tablet4 ??? spironolactone (ALDACTONE) 25 mg Tablet TAKE ONE TABLET BY MOUTH TWICE A DAY 180 tablet 3 ??? amLODIPine (NORVASC) 5 mg Tablet 5 mg daily. ??? lisinopril (PRINIVIL;ZESTRIL) 20 mg Tablet Take 20 mg by mouth daily. ??? aspirin 81 mg Tablet, Delayed Release (E.C.) Take 81 mg by mouth daily. Allergies: No Known Allergies Family History: No family history on file. Social History and Habits: Social History Socioeconomic History ??? Marital status: Spouse name: Not on file ??? Number of children: Not on file ??? Years of education: Not on file ??? Highest education level: Not on file Occupational History ??? Not on file Tobacco Use ??? Smoking status: Never Smoker ??? Smokeless tobacco: Never Used Vaping Use ??? Vaping Use: Never used Substance and Sexual Activity ??? Alcohol use: Yes Comment: occasionally ??? Drug use: No ??? Sexual activity: Not on file Other Topics Concern ??? Not on file Social History Narrative ??? Not on file Social Determinants of Health Financial Resource Strain: ??? Difficulty of Paying Living Expenses: Not on file Food Insecurity: ??? Worried About Running Out of Food in the Last Year: Not on file ??? Ran Out of Food in the Last Year: Not on file Transportation Needs: ??? Lack of Transportation (Medical): Not on file ??? Lack of Transportation (Non-Medical): Not on file Physical Activity: ??? Days of Exercise per Week: Not on file ??? Minutes of Exercise per Session: Not on file Immunizations: Immunization History Administered Date(s) Administered ??? Td, adult 04/23/2004 Physical Exam: Last Set of Vitals and range of vitals over past 24 hours: Last value Range last 24 hrs Temperature Temp: 36.8 ??C (98.2 ??F) Temp: [36.7 ??C (98.1 ??F)-38.9 ??C (102 ??F)] Heart Rate Heart Rate: (!) 128 Heart Rate: [103-133] Blood Pressure BP: 193/82 BP: (106-200)/(82-111) Respiratory Rate Resp: 21 Resp: [21-40] SpO2 SpO2: 93 % SpO2: [91 %-98 %] Body mass index is 35.37 kg/m??. Physical Exam Constitutional: Appearance: Normal appearance. He is obese. He is ill-appearing and diaphoretic. HENT: Nose: Nose normal. Mouth/Throat: Mouth: Mucous membranes are moist. Eyes: Pupils: Pupils are equal, round, and reactive to light. Cardiovascular: Rate and Rhythm: Tachycardia present. Pulmonary: Breath sounds: Rhonchi present. Comments: Tachypneic with rhonchi right lower base Abdominal: General: There is distension. Palpations: There is no mass. Tenderness: There is abdominal tenderness. There is right CVA tenderness. There is no left CVA tenderness, guarding or rebound. Genitourinary: Penis: Normal. Musculoskeletal: General: Normal range of motion. Cervical back: Normal range of motion. Skin: General: Skin is warm. Neurological: Mental Status: He is alert. Cranial Nerves: No cranial nerve deficit. Psychiatric: Comments: Delirious with inconsistent answers to questions Laboratory (Last 24 Hours): Recent Results (from the past 24 hour(s)) POCT Glucose Result Value Ref Range POC Glucose 160 65 - 199 mg/dL POCT Glucose Result Value Ref Range POC Glucose 150 65 - 199 mg/dL Comprehensive metabolic panel (non-fasting) Result Value Ref Range Glucose Lvl 146 65 - 199 mg/dL BUN 25 (H) 10 - 20 mg/dL Creatinine 0.97 0.80 - 1.50 mg/dL Sodium 143 135 - 145 mmol/L Potassium 3.9 3.5 - 5.0 mmol/L Chloride 109 (H) 98 - 107 mmol/L CO2 25 22 - 31 mmol/L Anion Gap 9 5 - 15 mmol/L Calcium 7.6 (L) 8.5 - 10.5 mg/dL Total Protein 5.7 (L) 6.1 - 8.0 gm/dL Albumin 2.9 (L) 3.2 - 5.2 gm/dL AST 48 (H) 0 - 39 unit/L ALT 53 0 - 55 unit/L Alk Phos 63 40 - 130 unit/L Total Bilirubin 1.3 0.2 - 1.3 mg/dL Estimated GFR 87 >=60 mL/min/1.73 m?? Hemogram Result Value Ref Range WBC 17.1 (H) 4.0 - 9.5 x10(3)/mcL RBC 3.78 (L) 4.58 - 5.54 x10(6)/mcL Hemoglobin 11.8 (L) 13.7 - 16.5 gm/dL Hematocrit 35.4 (L) 40.5 - 48.5 % MCV 93.7 (H) 82.9 - 93.1 fL MCH 31.2 27.5 - 32.1 pg MCHC 33.3 32.0 - 35.7 gm/dL Platelets 110 (L) 145 - 357 x10(3)/mcL RDWSD 48.5 (H) 36.0 - 45.0 fL RDWCV 14.2 (H) 11.4 - 13.8 % MPV 11.2 7.6 - 12.9 fL nRBC % Auto 0.0 % nRBC Abs Auto 0.000 0.000 - 0.000 x10(3)/mcL Differential, Automated Result Value Ref Range Neutrophils % 86.7 % Neutr Abs (ANC) 14.82 (H) 1.70 - 6.10 x10(3)/mcL Lymphocytes % 6.3 % Lymphocytes Abs 1.1 0.9 - 3.2 x10(3)/mcL Monocytes % 6.0 % Monocyte Abs 1.0 (H) 0.3 - 0.9 x10(3)/mcL Eosinophils % 0.1 % Eosinophils Abs 0.0 0.0 - 0.4 x10(3)/mcL Basophils % 0.2 % Basophils Abs 0.0 0.0 - 0.1 x10(3)/mcL Immature Gran % 0.70 % Sayda Gran Abs 0.12 (H) 0.00 - 0.04 x10(3)/mcL Lipase Result Value Ref Range Lipase 541 (H) 0 - 60 unit/L POCT Glucose Result Value Ref Range POC Glucose 180 65 - 199 mg/dL POCT Glucose Result Value Ref Range POC Glucose 195 65 - 199 mg/dL POCT Glucose Result Value Ref Range POC Glucose 156 65 - 199 mg/dL Troponin Result Value Ref Range Troponin-T <0.01 0.00 - 0.00 ng/mL Microbiology: Blood Cultures: No growth to date [facility] follow-up outside cultures Radiology: CXR - CT - Ultrasound - MRI - MRCP - OSH MRCP with gall stone Other Studies: EKG - sinus tach Echocardiogram - Vascular Studies - Pulmonary Report - Endoscopy - Assessment: Gallstone pancreatitis progressing ascending cholangitis complicated by acute respiratory failure now resolving status post stone passage. Still a bit delirious likely due to movements between hospital, lack of sleep and residual effects of intubation and propofol. Plan: ?? Admit to hospital medicine, stable for the floor ?? IV fluids, promote p.o. advance diet to liquids ?? Back pain with lidocaine patch, as needed Dilaudid for pancreatic pain ?? Sliding scale insulin ?? Follow-up blood cultures outside hospital, continue Zosyn another day if blood cultures negativeokay to transition to p.o. for ascending cholangitis treatment ?? Physical Therapy referral ?? DVT Prophylaxis ?? If currently a smoker - advised about smoking cessation and will provide smoking cessation material and support. ?? Pneumovax and Influenza Immunizations given as needed. ?? Discussed Advanced Directives and Code Status. The patient wishesto be Full Code. A copy of this document will be sent to the patient's Primary Care Physician and/or Referring Physician. JA TANNER MD 02/05/2021 * Giancarlo Aviles W - 02/04/2021 12:00 PM EDT CRITICAL CARE MEDICINE HISTORY & PHYSICAL Patient info: Name: Pancho Babb : 1965 PCP: Peña Turner DO Date of Admission: 02/04/2021 ( Hospital Day 0 days ) Responsible Attending:Wilbert Mcfadden MD ID: Pancho Babb is a 55 y.o. male with a past medical history of alcohol use disorder, HTN, hypokalemia (due to primary hyper-aldosteronism due to bilateral adrenal nodular hyperplasia followed by endocrinology, most recent Endocrine visit 06/2020) and non-insulin dependent type II DM who was transferred from [facility] intubated and admitted to the MICU for gallstone pancreatitis and choledocholithiasis. He presented to [facility] on February 02 for acute onset epigastric pain and was found to have acute pancreatitis with lipase 15,000 and elevated total bilirubin of 1.3, AST 152, ALT 198, alkaline phosphatase normal at 110. Triglyceride was normal at 101. He had elevated white count at 18,000 and hemoglobin 16.4 and platelet 218 on admission. CTA of the chest and abdomen showed diffuse interstitial infiltrates but no pulmonary emboli. Abdominal portion of the CTA showed diffuse peripancreatic inflammatory stranding and fluid consistent with acute pancreatitis. He also had fluid-filled loops of smallbowel with air-fluid levels with no significant bowel wall thickening or inflammatory changes with no evidence of obstruction, which indicated ileus. CTA initial read showed no signs of cholelithiasis and no gallbladder wall thickening, no pericholecystic fluid and no intrahepatic or extrahepatic biliary ductal dilatation. However, CTA was later read as showing cholelithiasis and a possible calculus in the lower portion of the common bile duct. There was no sign of portal vein thrombosis or superior mesenteric vein thrombosis on CT imaging. Based on the CTA result, MRCP and abdominal ultrasound were ordered. Abdominal ultrasound showed the presence of gallstones in the gallbladder lumen although gallbladder wall did not appear grossly edematous. Common bile duct could not be evaluated butwas noted to be slightly prominent and contain calculi in the lower common bile duct. Ascites was noted in bilateral upper quadrants. MRI of the abdomen confirmed cholelithiasis with multiple intraluminal gallstones with a small foci in the lower common bileduct was mildly dilated and pancreas showed abundant peripancreatic fluid with no dilatation of the pancreatic duct. Common bile duct measured 10 mm. Consistent with choledocholithiasis. He was given Dilaudid for abdominal pain. On her hospital day 2 (02/03), he was empirically started on meropenem due to fever, rising leukocytosis in the setting of choledocholithiasis. On the day prior to transfer because of increased abdominal pain he was put on a ketamine drip and the dosing of Dilaudid was weaned down. He was started nicardipine drip due to hypertensive urgency with systolic blood pressure of 190-200. He was eventually weaned off the nicardipine drip by time of transfer. Also he was started on phenobarbital for whatwas made misinterpreted as acute alcohol withdrawal on February 02 (last recorded alcohol use was at the end of November,). In the morning of February 04, he showed signs of increasing oxygen requirement on 5 L nasal cannula his tachypnea and persistent tachycardia. Blood pressure remained stable. Because of concern of potential respiratory decline he was preemptively intubated this morning. Attempted to transfer him to [facility] for ERCP but no available bed. Vitals and labs and time of transfer: Vitals: Blood pressure 113/70, respiratory rate 20, heart rate 101, temp is 38.4. O2 saturation 94%on FiO2 of 40%, assist control respiration rate 20, tidal volume 440, PEEP 8, Labs: WBC 23.5, Hb 14.4, plt 112, Na 142, K 4.1, BUN 27, bicarb 22, Cr 1.1, tbili 1.4, AST 94, ALT 95, alk phos 65, LDH 1047, CRP>25, albumin 2.9, lipase 4695, procalcitonin on 2.9. Blood cultureswere still pending from 02/03. Imagings: CTA abdomen, MRI abdomen, RUQ ultrasound results per above. Review of Systems: Unable to obtain due to patient ventilated and sedated GENERAL HEENT CV PULM X All negative X All negative All negative All negative Weight loss Headache Chest Pain Non-productive cough Weight gain Vision change Palpitations Productive cough Fevers Sinus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 infused per AUG.Ambulated independently in hallway. Resting between nursing care. PLAN MOVING FORWARD: Monitor VS, labs, I&Os Manage pain IV abx INDIVIDUALIZED FALL PREVENTION INTERVENTIONS: Patient-specific fall risk factors per assessment: [current deficits]: Med fall risk - IV access, pain Assistance [level of assistance required for transfers and ambulation]: IND Supervision [direct monitoring required during toileting and ADLs]: IND Surveillance [continuous indirect monitoring]: Purposeful hourly rounding, Masimo, call isaac withinreach Patient-specific fall prevention interventions for sensory deficits provided, if applicable: [X] N/A CPG GOAL OUTCOME EVALUATION: * Plan of Care - Lea Avery RN - 02/11/2021 5:42 PM EDT OUTCOME EVALUATION NOTE: OUTCOME SUMMARY: Pt. A&Ox4. Pt. Denies nausea, SOB. Endorses 10/10 back pain. PRN OXY and scheduled tylenol withmoderate effect. Ambulated around unit independently. Continued with IV antibiotics. Pt. Resting inbetween care. No other issues or concerns at this time. PLAN MOVING FORWARD: Monitor Vs, labs, I&Os Pain mgt. D/C planning Adv. Diet as tolerated INDIVIDUALIZED FALL PREVENTION INTERVENTIONS: Patient-specific fall risk factors per assessment: [current deficits]: Med fall risk- IV access, increased pain, medications Assistance [level of assistance required for transfers and ambulation]: IND Supervision [direct monitoring required during toileting and ADLs]: IND Surveillance [continuous indirect monitoring]: Purposeful rounding, call isaac within reach, room near nurses station Patient-specific fall prevention interventions for sensory deficits provided, if applicable: [X] N/A CPG GOAL OUTCOME EVALUATION: * Consult Note - Gary Ramos MD - 02/11/2021 9:[address] [facility] Department of Surgery Inpatient Consult Note Reason for Consult: pancreatic necrosis with fluid collection on CT HPI: Pancho Babb is a 55 y.o. male with a PMH of HTN, T2DM, obesity, and nephrolithiasis who was admitted critically ill 7 days ago with gallstone pancreatitis. He was overall improving with supportive management of IV fluids and pain control, nearing discharge home with plan for ERCP in 4-6 weeksf/b cholecystectomy. However, he became febrile overnight (Tmax 38.8) so CT scan was obtained whichshowed persistent severe necrotizing pancreatitis with worsening edema and enlarged fluid collection in the lesser sac. Upon evaluation today, he does endorse feeling chills yesterday evening around the time of the documented fever, however he has since defervesced and is hemodynamically normal. He endorses severe back pain that is unchanged over the past few days and mild intermittent pain in the lower quadrants. He is tolerating a full liquid diet without N/V and is passing flatus, though he has not had a normalbowel movement since prior to admission per his report. He otherwise denies chest pain, shortness of breath, dizziness, or changes in his urinary habits. PMH: - HTN - T2DM - obesity - nephrolithiasis PSH: - back surgery No prior abdominal surgeries. Past Surgical History: Procedure Laterality Date ??? PRO COLONOSCOPY, DIAGNOSTIC N/A 01/14/2016 COLONOSCOPY, DIAGNOSTIC performed by Ruslan Taylor MD at [facility] ENDOSCOPY MEDS: Current Outpatient Medications on File Prior to Encounter Medication Sig Dispense Refill ??? metFORMIN XR (Glucophage XR) 500 mg Tablet Sustained Release 24 hr Take 3 tablets by mouth daily. 270 tablet 3 ??? ergocalciferoL, vitamin D2, (vitamin D) 50,000 unit Capsule Take 1 capsule by mouth once a week. 13 capsule 4 ??? metFORMIN (FORTAMET) 500 mg Tablet Extended Rel 24 hr Take 2 tablets by mouth daily. 270 tablet4 ??? spironolactone (ALDACTONE) 25 mg Tablet TAKE ONE TABLET BY MOUTH TWICE A DAY 180 tablet 3 ??? amLODIPine (NORVASC) 5 mg Tablet 5 mg daily. ??? lisinopril (PRINIVIL;ZESTRIL) 20 mg Tablet Take 20 mg by mouth daily. ??? aspirin 81 mg Tablet, Delayed Release (E.C.) Take 81 mg by mouth daily. ALL: No Known Allergies FHx: Denies family history of bleeding or clotting disorders. SHx: Socioeconomic History ??? Marital status: Occupational History ??? 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 Smoking status: Never Smoker ??? Smokeless tobacco: Never Used Vaping Use ??? Vaping Use: Never used Substance and Sexual Activity ??? Alcohol use: Yes Comment: occasionally, weekly 2-6 drinks at once ??? Drug use: No ROS: A 10-point review of systems was negative except as noted in HPI. VITALS: Patient Vitals for the past 24 hrs: Temp Heart Rate From SP02 Resp BP SpO2 O2 Device 02/10/21 1008 -- 99 bpm -- -- 91 % -- 02/10/21 1306 36.8 ??C (98.2 ??F) (!) 105 bpm 16 116/69 95 % RA 02/10/21 1735 (!) 38.7 ??C (101.7 ??F) (!) 105 bpm 20 161/83 92 % RA 02/10/21 1749 37.9 ??C (100.2 ??F) (!) 109 bpm -- -- 92 % -- 02/10/21 1804 (!) 38.8 ??C (101.8 ??F) (!) 109 bpm -- -- 92 % -- 02/10/21 1932 37.8 ??C (100 ??F) -- -- -- -- -- 02/10/211999 -- -- -- -- -- RA 02/10/218 36.9 ??C (98.4 ??F) (!) 102 bpm 20 160/83 95 % RA 02/11/21 0150 36.6 ??C (97.9 ??F) 94 bpm 16 151/79 92 % RA 02/11/21 0723 37.1 ??C (98.8 ??F) 99 bpm 18 159/84 95 % RA EXAM: Gen: NAD, resting comfortably in bed, conversant HEENT: MMM, no scleral icterus CV: sinus tachycardia to 100s, normotensive on monitor, pulses 2+ b/l (radial, DP) Pulm: unlabored breathing on RA, no wheezing GI/Abd: soft, obese, mildly distended but not tympanic, mildly tender to deep palpation in lower quadrants and mid-epigastrum otherwise nontender throughout to palpation and percussion, no prior scars noted MSK: extremities warm, no notable edema Neuro: alert, oriented, no focal deficits Skin: dry, no lesions or rashes LABS: Recent Labs 02/11/2144902/10/2141602/09/2143902/07/21 1357 02/06/21 0326 WBC 12.7* 15.0* 14.8* 13.7* 16.5* HGB 8.9* 9.1* 9.5* 11.4* 11.2* HCT 26.1* 26.7* 27.9* 32.5* 32.7* PLATELET 275 228 181 154 140* NEUTROABS 10.77* -- -- 11.25* 14.49* Recent Labs 02/11/2144902/10/2141602/09/21 0440 NA 140 137 136 K 3.5 3.2* 3.2* CL 105 100 100 CO2 27 24 25 BUN 8* 13 11 CREATININE 0.74* 0.79* 0.70* Recent Labs 02/11/21 04502/10/2141602/09/21 0440 02/07/21 1357 02/04/21 1210 CALCIUM 7.9* 7.9* 7.7* 7.9* 7.7* MAGNESIUM -- 0.82 -- 0.75 0.80 PHOS -- -- -- 2.3* 3.3 Recent Labs 02/07/21 1357 02/06/21 0326 02/05/21 0230 GLUCOSE 278* 225* 146 Recent Labs 02/11/21 0450 02/10/21 0417 02/09/21 0440 AST 24 21 24 ALT 27 26 34 ALKPHOS 90 83 78 BILITOT 0.4 0.5 0.6 BILIDIR 0.2 0.2 0.2 Recent Labs 02/04/21 1210 INR 1.1 PT 12.2 PTT 26 MICRO: No new results. (BCx from OSH with no growth) IMAGING/DIAGNOSTICS: CT A/P 02/10/2021 1. Similar appearance of necrotizing pancreatitis with mild interval increase in edema and fluid inthe lesser sac. 2. Evidence of [place] Turners and Kevin sign. 3. Interval enlargement of gallbladder. Ptotic gallbladder. Cannot rule out cholecystitis. ASSESSMENT: Pancho Babb is a 55 y.o. male with HTN, T2DM, and prior nephrolithiasis who is admitted with gallstone pancreatitis. General Surgery was consulted for increasing size of peripancreatic fluid collection with concern for infection. Given his clinical stability, would not offer an operation at this time. If he develops hemodynamic instability and/or fever, would first work up other possible sources of infection then, if unrevealing, would consider endoscopic drainage of the fluid collection. RECOMMENDATIONS: ?? No indication for operative intervention at this time. ?? Consider further infectious workup with BCx, UCx, etc. if persistently febrile. If still concernfor peripancreatic infection, could consider endoscopic drainage. ?? Consider supportive care with IV fluids, pain control. Okay to advance diet as tolerated, as early enteral feeding improves outcomes in pancreatitis. ?? General Surgery will sign off at this time. Please page #[phone] with questions or concerns. Teresa Blake MD Consult pager #[phone] 02/11/2021 9:19 AM Acute Care Surgery Attending Addendum: I have seen this patient and agree with the above note with the following additions and/or modifications. 55 year old gentleman now about 10 days into his course of pancreatitis with ongoing pain being a primary issue. Yesterday he was febrile with some concern for chills and a repeat CT scan was obtained due to concern for infected pancreatic necrosis. On exam today he is resting comfortably in bed in no distress. States he has had about three meals but was not specific about whether this led to increased pain. Has been passing flatus and some loose bowel movements. CT scan without radiographic concern for infected pancreatic necrosis and now afebrilewith decreasing WBC. It is unclear whether his fever was due to irritation of his pancreatitis withdiet or whether there is another process such as cholecystitis versus cholangitis. Of note, there was mention of possible choledocholithiasis in the GI consult note. Given the evolution of his pancreatitis on CT imaging and recent fever it may be helpful to re-engage GI for any further input. Okay t o allow diet as no plan for any procedure at this time. Will need to monitor for any increased painwith diet as this may be an indication for further discussion regarding cholecystectomy or ERCP. Much of our visit was focused on his complaint of poor pain control and you might consider narrowing the time interval between oxycodone doses to q3 hours. Surgery will follow until he is tolerating a diet without pain. * Plan of Care - Andrei Villalta RN - 02/11/2021 6:13 AM EDT OUTCOME EVALUATION NOTE: OUTCOME SUMMARY: Pt hypertensive to 150s/70s, afebrile. A+Ox4. Pain 10/10 PRN oxy given q3hr, PRN ibuprofen, and scheduled tylenol with good effect. No nausea or SOB reported. CT of abdomen and pelvis completed. IV Zosyn given. Pt rested in between care. PLAN MOVING FORWARD: Monitor VS, labs, I/os. Pain management. D/c planning. INDIVIDUALIZED FALL PREVENTION INTERVENTIONS: Patient-specific fall risk factors per assessment: [current deficits]: pain, IV, med fall risk Assistance [level of assistance required for transfers and ambulation]: IND Supervision [direct monitoring required during toileting and ADLs]: IND Surveillance [continuous indirect monitoring]: masimo Patient-specific fall prevention interventions for sensory deficits provided, if applicable: N/A CPG GOAL OUTCOME EVALUATION: Ongoing * Plan of Care - Shayy Navarro RN - 02/10/2021 3:48 PM EDT OUTCOME EVALUATION NOTE: ?? OUTCOME SUMMARY: ?? Alan is here for pancreatitis. A&Ox4, VSS except tachycardia with ambulation on RA. Febrile 38.7. C/o back pain (5-8/10), good relief with scheduled Tylenol, PRN ibuprofen, and PRN oxycodone. Ptupset about transition to PRN Q4h oxycodone instead of scheduled. Pt thought it would be a shorter interval (ex. Q3h PRN). Pt educated it is to see if he can go longer between doses. Pt ambulating inroom and halls. Loose BM x2 per pt. Full liquid diet tolerated well. PLAN MOVING FORWARD: ?? Monitor VS, labs, I&Os Pain management Diet advancement OOB activity IV abx BCx2 Scan ABD ?? INDIVIDUALIZED FALL PREVENTION INTERVENTIONS: ?? Patient-specific fall risk factors per assessment: [current deficits]:?Medium fall risk - IV access, pain ?? Assistance [level of assistance required for transfers and ambulation]:?independent ?? Supervision [direct monitoring required during toileting and ADLs]:?independent ?? Surveillance [continuous indirect monitoring]:?Purposeful rounding, call isaac within reach, roomnear nurses station, [facility] ?? Patient-specific fall prevention interventions for sensory deficits provided, if applicable:?N/A Problem: Fluid Imbalance (Pancreatitis) Goal: Fluid Balance Outcome: Ongoing (Interventions Implemented as Appropriate) * Plan of Care - Bonny Esparza RN - 02/10/2021 2:35 AM EDT OUTCOME EVALUATION NOTE: OUTCOME SUMMARY: Pt here for pancreatitis. A&Ox4, skin pale and warm, afebrile, tachycardic with ambulation. Denies chest pain, SOB, N/V, numbness/tingling. C/o constant back pain, ranging from 3-8/10 - receiving scheduled Tylenol and oxycodone, refusing lidocaine patches (also refusing ibuprofen and flexeril per day RN). At 1945, pt asked CLEAN UP HELPER BANQUET for pain medication. CLEAN UP HELPER BANQUET reported this to RN. 2004, pt extremely agitated and angry that he has not received any pain medication at this time. RN pulled up chair at bedside to address pt's anger and concerns, however, had no interest in speaking to RN, instead, asked to speak with physician and supervisor motorcycle repair shop. MDaware, called into room to speak with pt, ordered one time PO oxycodone and trazodone. Pt called ditching machine operator to speak with manager of warehouse, who address pt at bedside. Pt accusing staff of withholding pa in medication and not actually administered medication. However, all pain medication has been administered as documented in AUG. Also, please refer to pain assessments made in Flowsheets. [address] supervisor motorcycle repair shop helpful in de-escalation. Pain managed well with oxycodone, ibuprofen, and Flexeril at this time. Pt cooperative the rest of the night. Ambulated frequently throughout night. Resting in betweencare. PLAN MOVING FORWARD: Monitor VS, labs, I&Os Pain management Monitor BP Diet advancement OOB activity Discharge planning INDIVIDUALIZED FALL PREVENTION INTERVENTIONS: Patient-specific fall risk factors per assessment: [current deficits]: Medium fall risk - IV access, pain Assistance [level of assistance required for transfers and ambulation]: independent Supervision [direct monitoring required during toileting and ADLs]: independent Surveillance [continuous indirect monitoring]: Purposeful rounding, call isaac within reach, [facility] Patient-specific fall prevention interventions for sensory deficits provided, if applicable: N/A * Plan of Care - Bonny Esparza RN - 02/09/2021 6:52 AM EDT OUTCOME EVALUATION NOTE: OUTCOME SUMMARY: Pt here for pancreatitis. A&Ox4, skin pale and warm, afebrile, tachycardic throughout the night, BP 130-140's/80's. Denies chest pain, SOB, N/V, numbness/tingling. Did note audible expiratory wheezes on assessment, aware, PRN neb ordered. Little relief with neb, aware, mIVF d/c'ed, CXR ordered (please see results). C/o 3-5/10 pain in abdomen/back - schedueld oxycodone and Tylenol administered as well as PRN IV Dilaudid. Educated on importance of switching to PO medications for anticipatory discharge (MD aware, PRN PO Dilaudid ordered), pt reported willingness to try to switch to PO today. Showered this AM, BP after shower 94/55 asymptomatic, MD aware, will continue to monitor at this time. Will ring appropriately. Resting in between nursing care. PLAN MOVING FORWARD: Monitor VS, labs, I&Os Pain management Monitor BP Diet advancement Discharge planning OOB activity today INDIVIDUALIZED FALL PREVENTION INTERVENTIONS: Patient-specific fall risk factors per assessment: [current deficits]: Medium fall risk - IV access, pain Assistance [level of assistance required for transfers and ambulation]: independent Supervision [direct monitoring required during toileting and ADLs]: independent Surveillance [continuous indirect monitoring]: Purposeful rounding, call isaac within reach, room near nurses station, [facility] on Patient-specific fall prevention interventions for sensory deficits provided, if applicable: N/A CPG GOAL OUTCOME EVALUATION: * Plan of Care - Bonny Bloom RN - 02/08/2021 5:41 PM EDT OUTCOME EVALUATION NOTE: OUTCOME SUMMARY: Patient is alert and oriented times 4. Patient had great deal of pain in the morning and wanted to see the physician to increase pain medication. Patient / nurse / physician met and discussed the changes in pain medication to try and give him a longer relief as he had so much pain and medication overnight. Patient was provided education throughout the shift about pain management and rebound pain with good understanding. Pain level and blood pressure both decreased throughout the shift. Patient was able to rest between medication delivery. PLAN MOVING FORWARD: Continue monitoring vital signs / intake and output / laboratory tests / blood glucose Pain control / management Oral antibiotics Continue IV fluids and NPO diet with ice chips Encourage out of bed activity INDIVIDUALIZED FALL PREVENTION INTERVENTIONS: Patient-specific fall risk factors per assessment: [current deficits]: Medium fall risk due to secondary diagnosis, IV therapy, weakness / fatigue, iv pain medications Assistance [level of assistance required for transfers and ambulation]: Standby assist / eyes on Supervision [direct monitoring required during toileting and ADLs]: Standby assist / eyes on Surveillance [continuous indirect monitoring]: Masimo, bed alarm, room near nurses station, call light in reach, purposeful hourly rounding Patient-specific fall prevention interventions for sensory deficits provided, if applicable: na CPG GOAL OUTCOME EVALUATION: na * Plan of Care - Pia Solomon RN - 02/08/2021 5:48 AM EDT OUTCOME EVALUATION NOTE: OUTCOME SUMMARY: A&Ox4, hypertensive 173/103 and tachy 100s-110s, no PRNs available, MD notified. VS notification parameter orders requested. Pt c/o SOB, put on 1L NC for comfort. Pt endorsed 9-10 back and abdominal pain, PRN dilaudid given x4, PRN Toradol given x1, PRN Tylenol x1, and PRN Flexeril given x1. IV fluids continued. Blood glucose monitored, bedtime BS elevated and one time insulin lispro ordered, see AUG. PO Augmentin abx given per AUG. CIWA scoring continued, scoring 3-4. Abd/pelvis CT, results pending. Pt resting between nursing care. PLAN MOVING FORWARD: Monitor VS, I/Os, labs Continue to monitor blood glucose QID. Pain management PO abx Continue IV fluids Encourage ambulation INDIVIDUALIZED FALL PREVENTION INTERVENTIONS: Patient-specific fall risk factors per assessment: [current deficits]: Med fall risk d/t secondary diagnosis, IV therapy, generalized weakness, oxygen Assistance [level of assistance required for transfers and ambulation]: Eyes on Supervision [direct monitoring required during toileting and ADLs]: SBA Surveillance [continuous indirect monitoring]: Masimo, bed alarm, room near unit station, call light within reach, purposeful hourly founding Patient-specific fall prevention interventions for sensory deficits provided, if applicable: CPG GOAL OUTCOME EVALUATION: * Plan of Care - HowardJennifer finley RN - 02/07/2021 6:12 PM EDT OUTCOME EVALUATION NOTE: OUTCOME SUMMARY: Pt A&O. Independent in room. Very hypertensive - no relief despite added PO medication and PRN labetolol; MD aware. Pain still not managed despite flexeril, torodal, tylenol, and Q2H dilaudid around the clock; pt continues to have multiple requests for pain medication sooner and higher doses; MD aware. Pt is not interestedi in any nonpharmacological options in effort to help with pain control. Pain is mostly in his back; CT abd/pelvis ordered as routine. CIWA scoring negative; pt also stating he has not drank in over 4 months. Blood cultures negative. Lipase just above normal range. RA; pt wears 2L NC intermittently for comfort. Abdominal distention and abdominal muscle use for WOB; SOBhas continued as well. Little PO intake this shift as far as food; is drinking liquids. No c/o nausea or vomiting. PIVx1; NS@100 started this evening. PLAN MOVING FORWARD: Monitor VS; I/O; labs Continue to try to manage pain Monitor BPs closely Continue IV fluids Abd/pelvis CT Encourage ambulation INDIVIDUALIZED FALL PREVENTION INTERVENTIONS: Patient-specific fall risk factors per assessment: [current deficits]: PIV; pain Assistance [level of assistance required for transfers and ambulation]: Ind Supervision [direct monitoring required during toileting and ADLs]: Ind Surveillance [continuous indirect monitoring]: Masimo; call light within reach; room near unit station Patient-specific fall prevention interventions for sensory deficits provided, if applicable: No CPG GOAL OUTCOME EVALUATION: * Plan of Care - Marium Vyas RN - 02/07/2021 7:24 AM EDT OUTCOME EVALUATION NOTE: OUTCOME SUMMARY: Hypertensive and tachycardic throughout shift; MD aware. Labetalol given twice. Attempted to managepain in order to control hypertension. Pt complained of pain 8-9/10 in lower back. Received many PRN and one time pain meds per MD order. Recommended repositioning, heat/cold therapy, ordered lidocaine patches, ambulation, up to chair, etc; pt refused non-pharmaceutical interventions. Sats stable on RA, but tachypneic (24-26 breaths per minute) with abdominal muscle use. A&O x 4 but restless at times. PLAN MOVING FORWARD: Labs and vitals CIWAA Monitor BP carefully; manage with PRN hypertensive meds Manage pain with PRN meds INDIVIDUALIZED FALL PREVENTION INTERVENTIONS: Patient-specific fall risk factors per assessment: [current deficits]: pain level, intermittent IV use Assistance [level of assistance required for transfers and ambulation]: independent Supervision [direct monitoring required during toileting and ADLs]: independent Surveillance [continuous indirect monitoring]: calls appropriately, call isaac within reach, nasir, room near nurse's station Patient-specific fall prevention interventions for sensory deficits provided, if applicable: NA CPG GOAL OUTCOME EVALUATION: Problem: Fluid Imbalance (Pancreatitis) Goal: Fluid Balance Outcome: Ongoing (Interventions Implemented as Appropriate) Problem: Infection (Pancreatitis) Goal: Infection Symptom Resolution Outcome: Ongoing (Interventions Implemented as Appropriate) Problem: Nutrition Impaired (Pancreatitis) Goal: Optimal Nutrition Intake Outcome: Ongoing (Interventions Implemented as Appropriate) Problem: Pain (Pancreatitis) Goal: Acceptable Pain Control Outcome: Ongoing (Interventions Implemented as Appropriate) Problem: Respiratory Compromise (Pancreatitis) Goal: Effective Oxygenation and Ventilation Outcome: Ongoing (Interventions Implemented as Appropriate) Problem: Pain Acute Goal: Acceptable Pain Control and Functional Ability Outcome: Ongoing (Interventions Implemented as Appropriate) * Plan of Care - HowardJennifer RN - 02/06/2021 3:16 PM EDT OUTCOME EVALUATION NOTE: OUTCOME SUMMARY: A&O. SBA; bed alarm in place. Hypertensive all shift; PRN hydralazine Q6H for SBP>180 given x1 with little effect. PIVx2; SL. IV antibiotics changed to PO. Diet advanced to full liquids. RA. Pt c/o 8-10 abdominal and back pain; back>abdomen throughout shift. Repeated requests for increased meds and new meds; stating none of the medications this morning worked on the pain - several requests to page and talk to MD. Multiple PRNs; doses increased and all given when available. Pt reports the Toradol works best - increased to 30mg Q6H. GI, PT, OT following. PLAN MOVING FORWARD: Monitor I/O, VS, labs Encourage ambulation Continue to advance diet as tolerated Pain management INDIVIDUALIZED FALL PREVENTION INTERVENTIONS: Patient-specific fall risk factors per assessment: [current deficits]: Pain; impulsiveness Assistance [level of assistance required for transfers and ambulation]: SBA Supervision [direct monitoring required during toileting and ADLs]: Eyes on Surveillance [continuous indirect monitoring]: Masimo; room near unit station; bed alarm Patient-specific fall prevention interventions for sensory deficits provided, if applicable: No CPG GOAL OUTCOME EVALUATION: * Initial Assessments - Josefina Garcia RN - 02/05/2021 9:53 AM EDT Office of Care Management Initial Assessment Josefina Garcia RN reviewed record and discussed patient with Care Team. Source of Information: Team, bedside nurse, medical record, and Patient, Chart Review Introduced self/reviewed role; services accepted. Reason for Hospitalization: transfered from [facility] with acute pancreatitis Last COVID test: Not done. Past medical History: No past medical history on file. Hospitalizations Within the Past 30 Days: no previous admission in last 30 days Current Decision-Making Capacity: Self Advance Care Planning: Attempt Cardiopulmonary Resuscitation - Inpatient <no information> -Advanced Directive: No, need to discuss If AD's have not been completed stephany Andujar would be surrogate decision maker per [place] surrogatedecision making law. (Only good for 90 days) Any patient receiving care at [facility] must abide by [place] law. The hierarchy for surrogate decision making is: (a) Patient???s spouse, or civil union partner or common law spouse unless there is a divorce proceeding, separation agreement, or restraining order limiting that person???s relationship with the patient. (b) Any adult son or daughter of the patient. (c) Either parent of the patient. (d) Any adult brother or sister of the patient. (e) Any adult grandchild of the patient. (f) Any grandparent of the patient. (g) Any adult aunt, uncle, niece, or nephew of the patient. (h) A close friend of the patient. (i) The agent with financial power of communications administrator or a conservator appointed in accordance with RSA 464-A. (j) The guardian of the patient???s estate. Current Coping/Education/Information Needs: Team at bedside. Current Functional Ability: 1 assist Functional Status Prior to Admission: Independent Home Environment: Others in the home: parent(s). Current Living Arrangements: home/apartment/condo. Accessibility Concerns:3 story home with 3 steps to enter. Pt reports no issues with stairs. Current DME: none Home Address confirmed as: [facility] [address] [address] Social & Family Supports: All names listed below confirmed with patient as current and correct Extended Emergency Contact Information Primary Emergency Contact: [place] [address] [facility] Relation: Mother Secondary Emergency Contact: Pratima Babb Address: [address] [place] [address] Mobile Relation: Child Current Care Provided by: self Provides Primary Care For: no one Caregiver if needed: none Quality of Family relationships: helpful, involved, supportive Community Resources being provided currently: none Behavioral Health History: Anxiety and depression for which he takes no medications. Substance Use/Abuse confirmed: Social History Tobacco Use Smoking Status Never Smoker In the past year have you used an illegal drug or used a prescription medication for non-medical reaons?: No 0 No problems reported 1-2 Low level 3-5 Moderate level 6-8 Substantial level 9- 10 Severe level In the past year have you had 5 or more drinks a day containing alcohol?: (Pt reports he has not had any alcohol in the last 3 months.) 0 to 7 points: Low risk 8 to 15 points: Medium risk 16 to 19 points: High risk 20 to 40 points: Addiction likely Other Pertinent/Service Specific Information: None. Health/Prescription Coverage: Primary Insurance: [place] Payor: [place] / Plan: [place] PRIMARY CARE PLUS / Product Type: *No Product type* / Secondary Insurance: N/A Prescription Coverage: Yes Preferred Pharmacy: [facility] - [place], [place] - [address] [place] [id number] Start Status: Patient is a : No Primary Care Provider: Peña Turner DO [phone] Patient/Caregiver Goals of Treatment: Home. Potential Needs for Transition of Care: none Agency Referrals: Not Applicable Transportation: no concerns Transportation Anticipated: family or friend will provide Concerns to be Addressed: discharge planning Assessment: Patient is admitted to critical care service for gallstone pancreatitis. Past medical history of alcohol use disorder, HTN, hypokalemia and non-insulin dependent type II DM. Pt was transferred from [facility] intubated and admitted to the MICU for gallstone pancreatitis and choledocholithiasis. Pt is presently extubated and on NC. ?? Plan: Will send referrals as needed when medically appropriate. A member of the Care Management team will continue to monitor progress, follow for continuity of care and assist with transition of care planning. Josefina Garcia RN CM MICU Phone [phone] Pager [phone] * Consult Note - Manav Hale MD - 02/05/2021 6:47 AM EDT Images from the original note were not included. 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 Per the admitting documentation, he initially presented to [facility] on 02/02 for acute epigastric pain with admitting labs notable for lipase of 15,000, T bili 1.3, AST 152, ALT 198, alk phos 110. WBC 18,000, Hgb 16.4. CT abdomen showed diffuse peripancreatic inflammatory stranding and fluid concerning for acute pancreatitis. The small bowel is notable for air-fluid levels with no significant wall thickeningor inflammatory changes consistent with ileus. While the initial scan noted there were no signs of cholelithiasis, no GB wall thickening, and no duct dilation, repeat assessment was concerning for cholelithiasis and possible stone in the lower portion of the CBD. Based on these findings MRCP/right upper quadrant ultrasound was ordered with ultrasound demonstrating gallstones in the gallbladder lumen but poor visualization of the CBD. MRI again confirmed cholelithiasis with a small foci in the lower CBD with mild dilation to 10 mm. Pancreas notable for abundant peripancreatic fluid with no dilation of the PD. These findings were consistent with choledocholithiasis. The patient reportedly developed fevers and leukocytosis and was started on meropenem. Other notable findings include hypertensive urgency s/p nicardipine drip and intermittent use of phenobarbital for questionable alcohol withdrawal. After developing increased oxygen requirements, tachypnea, and concern for respiratory decline he was intubated for airway protection. Transfer attempt was made to [facility] for ERCP but no bed was available. He was subsequently transferred to [facility] for further care. Objective data since arrival includes: -T-max 100.9, HR 117, BP 176/105, RR 28 saturating at 95% on 2 L nasal cannula (postextubation) -CBC: WBC 17.1, Hgb 11.8, PLT 110 -BMP: NA 143, K3.9, CL 109, CO2 25, BUN 25, creatinine 0.97 -LFTs: AST 48, ALT 53, alk phos 63, T bili 1.3 -Coags: PT 12.2, PTT 26, INR 1.1 -Lipase 974 -Urinalysis: 30 protein, trace ketones, small bilirubin, moderate blood. ROS: 10-system ROS negative other than that noted above PAST MEDICAL HX: No past medical history on file. PAST SURGICAL HX: Past Surgical History: Procedure Laterality Date ??? PRO COLONOSCOPY, DIAGNOSTIC N/A 01/14/2016 COLONOSCOPY, DIAGNOSTIC performed by Ruslan Taylor MD at [facility] ENDOSCOPY PAST SOCIAL HX: Social History Socioeconomic History ??? Marital status: Spouse name: Not on file ??? Number of children: Not on file ??? Years of education: Not on file ??? Highest education level: Not on file Occupational History ??? Not on file Tobacco Use ??? Smoking status: Never Smoker ??? Smokeless tobacco: Never Used Vaping Use ??? Vaping Use: Never used Substance and Sexual Activity ??? Alcohol use: Yes Comment: occasionally ??? Drug use: No ??? Sexual activity: Not on file Other Topics Concern ??? Not on file Social History Narrative ??? Not on file Social Determinants of Health Financial Resource Strain: ??? Difficulty of Paying Living Expenses: Not on file Food Insecurity: ??? Worried About Running Out of Food in the Last Year: Not on file ??? Ran Out of Food in the Last Year: Not on file Transportation Needs: ??? Lack of Transportation (Medical): Not on file ??? Lack of Transportation (Non-Medical): Not on file Physical Activity: ??? Days of Exercise per Week: Not on file ??? Minutes of Exercise per Session: Not on file PAST FAMILY HX: No family history on file. MEDICATIONS Home Meds: Medications Prior to Admission Medication Sig Dispense Refill Last Dose ??? metFORMIN XR (Glucophage XR) 500 mg Tablet Sustained Release 24 hr Take 3 tablets by mouth daily. 270 tablet 3 ??? ergocalciferoL, vitamin D2, (vitamin D) 50,000 unit Capsule Take 1 capsule by mouth once a week. 13 capsule 4 ??? metFORMIN (FORTAMET) 500 mg Tablet Extended Rel 24 hr Take 2 tablets by mouth daily. 270 tablet4 ??? spironolactone (ALDACTONE) 25 mg Tablet TAKE ONE TABLET BY MOUTH TWICE A DAY 180 tablet 3 ??? amLODIPine (NORVASC) 5 mg Tablet 5 mg daily. ??? lisinopril (PRINIVIL;ZESTRIL) 20 mg Tablet Take 20 mg by mouth daily. ??? aspirin 81 mg Tablet, Delayed Release (E.C.) Take 81 mg by mouth daily. Current Meds: Scheduled: ??? heparin (porcine) 5,000 Units Subcutaneous Q8H GENIE ??? sodium chloride 0.9 % (flush) 5 mL Intravenous BID ??? piperacillin-tazobactam 3.375 g Intravenous Q8H ??? amLODIPine 5 mg Oral Daily ??? insulin lispro 1-5 Units Subcutaneous TID AC ??? lidocaine 3 patch Transdermal Q24H And ??? lidocaine 3 patch Transdermal Q24H Drips: ??? dexmedetomidine 1 mcg/kg/hr (02/04/21 3515) ??? propofoL 10 mcg/kg/min (02/04/21 2721) PRN: sodium chloride 0.9 % (flush), lidocaine, glucose 40% oral geL OR dextrose 10% OR glucagon,HYDROmorphone OR HYDROmorphone OR HYDROmorphone, HYDROmorphone, acetaminophen No Known Allergies OBJECTIVE Vitals: T Temp: [36.8 ??C (98.2 ??F)-38.9 ??C (102 ??F)] HR Heart Rate: [91-133] BP BP: (105-200)/(68-105) RR Resp: [17-40] SpO2 SpO2: [91 %-99 %] 02/04 0701 - 02/05 0700 In: 1380.2 [I.V.:1380.2] Out: 1725 [Urine:1575] Wt Last 110.8 kg (244 lb 4.3 oz) Admit 110.7 kg Physical Exam: GEN: Awake, alert, in mild distress HEENT: sclerae anicteric, moist mucous membranes RESP: CTAB CARDIAC: RRR, normal S1/S2, no appreciable murmurs ABDOMEN: non-tender, distended and tympanic to percussion, faint bowel sounds EXTREM: Warm, no edema NEURO: Grossly intact, moves all extremities SKIN: No jaundice Labs: CBC: Recent Labs 02/05/21 0230 02/04/21 1210 WBC 17.1* 20.4* HGB 11.8* 13.0* HCT 35.4* 39.1* PLATELET 110* 134* MCV 93.7* 95.4* RDWCV 14.2* 14.4* COAG: Recent Labs 02/04/21 1210 PTT 26 INR 1.1 CHEM: Recent Labs 02/05/21 0230 02/04/21 1210 GLUCOSE 146 -- NA 143 141 K 3.9 4.3 CL 109* 107 CO2 25 22 BUN 25* 29* CREATININE 0.97 1.25 ALBUMIN 2.9* 2.9* MAGNESIUM -- 0.80 CALCIUM 7.6* 7.7* HEPATIC: Recent Labs 02/05/21 0230 02/04/21 1210 ALKPHOS 63 61 ALT 53 66* AST 48* Not Perf BILITOT 1.3 0.9 LIPASE -- 974* INFLAMM: No results for input(s): CRP in the last 168 hours. IMAGING: Reports and images personally reviewed in [facility] ENDOSCOPY: Reports and images personally reviewed in [facility] Colonoscopy on 01/14/16: Findings: ?A few large-mouthed diverticula were found in the ?sigmoid colon, in the descending colon, in the ?transverse colon and in the ascending colon. ?The terminal ileum appeared normal. ?Internal hemorrhoids were found during retroflexion. ?The hemorrhoids were small. ? Impression: ?- Diverticulosis in the sigmoid ?colon, in the descending colon, in ?the transverse colon and in the ?ascending colon. ?- The examined portion of the ileum ?was normal. ?- Internal hemorrhoids. ?- No specimens collected. Recommendation: ?- Repeat colonoscopy in 7 years for ?surveillance. ASSESSMENT & PLAN: Pancho Babb is a 55 y.o. M w/PMH of alcohol use disorder, HTN, hypokalemia, and t2DM who was admitted with concern for gallstone pancreatitis and choledocholithiasis. At this point, the primary GI concerns seem to have passed as Mr. Babb has improving labs with stable LFTs, normal bilirubin, no hypot ension or other signs/sxs concerning for cholangitis. While he may have an ongoing stone in his CBD, this need not be intervened on urgently especially in the setting of acute pancreatitis. Instead, he would be best served to have an outpatient ERCP in the next month followed by surgical removal ofhis gallbladder. RECOMMENDATIONS: - Obtain KUB (tympanic abdomen) - Bowel regimen (miralax + Senna) for developing ileus - Ambulation OOB and to chair - Correct any underlying electrolyte abnormalities - Advance Diet as tolerated - We will arrange for followup ERCP in 1 month Patient reviewed with Dr. Hale. Nahid Shah MD PGY-4, Gastroenterology ADDENDUM: I interviewed and examined Mr. Babb with Dr. Shah and I agree with the assessment and plan as outlined in the note from today. His pancreatitis appears to have resolved and with normal liver tests would not purse ERCP - he can have this an an outpatient in 4-6 weeks to remove CBD stones.I would also really try to work on what is probably an ileus - ambululate, limit opiates, correct electrolyte abnormalities. documented in this encounter Plan of Treatment Pending Results Name Type Priority Associated Diagnoses Date /Time EKG 12 Lead ECG Routine 02/04/2021 12 :42 PM EDT Scheduled Referrals Name Type Priority Associated Diagnoses Order Schedule Referral to Gastroenterology Outpatient Referral Routine Gallstone pancreatitis Ordered: 02/16/2021 Referral to General Surgery Outpatient Referral Routine Gallstone pancreatitis Ordered: 02/16/2021 documented as of this encounter Procedures Procedure Name Priority Date/Time Associated Diagnosis Comments POCT GLUCOSE Routine 02/16/2021 8:14 AM EDT HC HEMOGRAM Routine 02/16/2021 4:36 AM EDT HC MAGNESIUM, SERUM Routine 02/16/2021 4 :36 AM EDT HEPATIC FUNCTION PANEL Routine 4:36 AM EDT BASIC METABOLIC PANEL Routine 02/16/2021 4:36 AM EDT POCT GLUCOSE Routine 02/15/2021 10:14 PM EDT POCT GLUCOSE Routine 02/15/2021 5:02 PM EDT POCT GLUCOSE Routine 02/15/2021 12:38 PM EDT POCT GLUCOSE Routine 02/15/2021 11:04 AM EDT POCT GLUCOSE Routine 02/15/2021 8:20 AM EDT HC VENIPUNCTURE Routine 02/15/2021 5:30 AM EDT HC HEMOGRAM Routine 02/15/2021 5:30 AM EDT POCT GLUCOSE Routine 02/14/2021 8:52 PM EDT POCT GLUCOSE Routine 02/14/2021 5:10 PM EDT POCT GLUCOSE Routine 02/14/2021 11:59 AM EDT POCT GLUCOSE Routine 02/14/2021 8:28 AM EDT CMP W/FASTING GLUCOSE Routine 02/14/2021 4:00 AM EDT HC HEMOGRAM Routine 02/14/2021 4:00 AM EDT HC PHOSPHORUS, SERUM Routine 02/14/2021 4:00 AM EDT POCT GLUCOSE Routine 02/13/2021 9:08 PM EDT MRI CHOLANGIOPANCREATOGRAPHY Routine 7:01 PM EDT URINE HOLD Routine 02/13/2021 6:00 PM EDT URINALYSIS WITH REFLEX CULTURE Routine 0 02/13/2021 6:00 PM EDT POCT GLUCOSE Routine 02/13/2021 3:59 PM EDT POCT GLUCOSE Routine 02/13/2021 12:05 PM EDT POCT GLUCOSE Routine 02/13/2021 8:14 AM EDT HC VENIPUNCTURE Routine 02/13/2021 4:20 AM EDT HC HEMOGRAM Routine 02/13/2021 4:20 AM EDT POCT GLUCOSE Routine 02/12/2021 8:13 PM EDT POCT GLUCOSE Routine 02/12/2021 4:40 PM EDT POCT GLUCOSE Routine 02/12/2021 11:45 AM EDT HEMOGRAM Routine 02/12/2021 9:26 AM EDT DIFFERENTIAL, AUTOMATED Routine 02/13/20 9:26 AM EDT HC CBC,PLT & AUTO DIFF Routine 9:26 AM EDT HC VENIPUNCTURE Routine 02/12/2021 9:26 AM EDT POCT GLUCOSE Routine 02/12/2021 8:12 AM EDT POCT GLUCOSE Routine 02/11/2021 7:49 PM EDT POCT GLUCOSE Routine 02/11/2021 5:10 PM EDT POCT GLUCOSE Routine 02/11/2021 11:51 AM EDT POCT GLUCOSE Routine 02/11/2021 7:29 AM EDT HC VENIPUNCTURE Routine 02/11/2021 4:50 AM EDT HEMOGRAM Routine 02/11/2021 4:50 AM EDT DIFFERENTIAL, AUTOMATED Routine 02/12/20 4:50 AM EDT HC CBC,PLT & AUTO DIFF Routine 4:50 AM EDT HEPATIC FUNCTION PANEL Routine 4:[address] ABDOMEN W CONTRAST STAT 02/10/2021 10:50 PM EDT POCT GLUCOSE Routine 02/10/2021 9:38 PM EDT HC BLOOD CULTURE- STAT 02/10/2021 6:5 2 PM EDT HC BLOOD CULTURE- STAT 02/10/2021 6:3 9 PM EDT POCT GLUCOSE Routine 02/10/2021 5:29 PM EDT POCT GLUCOSE Routine 02/10/2021 12:32 PM EDT POCT GLUCOSE Routine 02/10/2021 8:15 AM EDT HC VENIPUNCTURE Routine 02/10/2021 4:17 AM EDT HC HEMOGRAM Routine 02/10/2021 4:17 AM EDT MAGNESIUM Routine 02/10/2021 4:17 AM EDT HEPATIC FUNCTION PANEL Routine 4:17 AM EDT POCT GLUCOSE Routine 02/09/2021 9:19 PM EDT POCT GLUCOSE Routine 02/09/2021 3:41 PM EDT POCT GLUCOSE Routine 02/09/2021 12:19 PM EDT POCT GLUCOSE Routine 02/09/2021 8:48 AM EDT HC VENIPUNCTURE Routine 02/09/2021 4:40 AM EDT HC HEMOGRAM Routine 02/09/2021 4:40 AM EDT HEPATIC FUNCTION PANEL Routine 4:40 AM EDT XR CHEST ONE VIEW STAT 02/08/2021 11:15 PM EDT POCT GLUCOSE Routine 02/08/2021 9:17 PM EDT POCT GLUCOSE Routine 02/08/2021 4:18 PM EDT POCT GLUCOSE Routine 02/08/2021 1:11 PM EDT BMP W/FASTING GLUCOSE Routine 02/08/2021 8:29 AM EDT HC HEMOGRAM Routine 02/08/2021 8:29 AM EDT POCT GLUCOSE Routine 02/08/2021 7:[address] ABDOMEN AND PELVIS W CONTRAST Routine 02/07/2021 11:22 PM EDT POCT GLUCOSE Routine 02/07/2021 9:50 PM EDT POCT GLUCOSE Routine 02/07/2021 8:40 PM EDT POCT GLUCOSE Routine 02/07/2021 6:30 PM EDT POCT GLUCOSE Routine 02/07/2021 4:11 PM EDT HEMOGRAM Routine 02/07/2021 1:57 PM EDT DIFFERENTIAL, AUTOMATED Routine 02/08/20 1:57 PM EDT HC VENIPUNCTURE Routine 02/07/2021 1:57 PM EDT HC PHOSPHORUS, SERUM Routine 02/07/2021 1:57 PM EDT HC MAGNESIUM, SERUM Routine 02/07/2021 1 :57 PM EDT HC LIPASE Routine 02/07/2021 1:57 PM EDT COMPREHENSIVE METABOLIC PANEL Routine 1:57 PM EDT POCT GLUCOSE Routine 02/07/2021 11:27 AM EDT POCT GLUCOSE Routine 02/07/2021 7:50 AM EDT XR CHEST PA AND LATERAL Routine 02/07/20 9:10 PM EDT POCT GLUCOSE Routine 02/06/2021 8:25 PM EDT POCT GLUCOSE Routine 02/06/2021 4:45 PM EDT POCT GLUCOSE Routine 02/06/2021 10:55 AM EDT POCT GLUCOSE Routine 02/06/2021 8:08 AM EDT HEMOGRAM Routine 02/06/2021 3:26 AM EDT DIFFERENTIAL, AUTOMATED Routine 02/07/20 3:26 AM EDT HC CBC,PLT & AUTO DIFF Routine 3:26 AM EDT COMPREHENSIVE METABOLIC PANEL Routine 3:26 AM EDT POCT GLUCOSE Routine 02/05/2021 8:50 PM EDT HC TROPONIN T STAT 02/05/2021 4:55 PM EDT EKG 12-LEAD STAT 02/05/2021 4:49 PM EDT Chest pain, unspecified type POCT GLUCOSE Routine 02/05/2021 4:12 PM EDT POCT GLUCOSE Routine 02/05/2021 11:43 AM EDT POCT GLUCOSE Routine 02/05/2021 8:14 AM EDT HEMOGRAM Routine 02/05/2021 2:30 AM EDT DIFFERENTIAL, AUTOMATED Routine 02/06/20 2:30 AM EDT HC CBC,PLT & AUTO DIFF Routine 2:30 AM EDT LIPASE Routine 02/05/2021 2:30 AM EDT COMPREHENSIVE METABOLIC PANEL Routine 2:30 AM EDT POCT GLUCOSE Routine 02/04/2021 9:09 PM EDT POCT GLUCOSE Routine 02/04/2021 6:14 PM EDT URINALYSIS DIPSTICK Routine 02/04/2021 1 :03 PM EDT URINE HOLD STAT 02/04/2021 1:02 PM EDT HC UA W/OUT MICROSCOPIC STAT 02/05/20 1:02 PM EDT BLOOD GAS ARTERIAL POC Routine 1:00 PM EDT HC BLOOD CULTURE- STAT 02/04/2021 12:57 PM EDT XR CHEST ONE VIEW STAT 02/04/2021 12:51 PM EDT XR ABDOMEN 1 VIEW Routine 02/04/2021 12:51 PM EDT EKG 12-LEAD Routine 02/04/2021 12:42 PM EDT EKG 12-LEAD STAT 02/04/2021 12:42 PM EDT Hypokalemia HC BLOOD CULTURE- STAT 02/04/2021 12:30 PM EDT TYPE AND SCREEN VALIDITY STAT 021 12:16 PM EDT ABORH RECHECK STATUS STAT 02/04/2021 12:16 PM EDT ABO/RH TYPING STAT 02/04/2021 12:16 PM EDT ANTIBODY SCREEN STAT 02/04/2021 12:16 PM EDT HC ANTIBODY DETECTION,CAPTURE-R STAT 02/04/2021 12:16 PM EDT CMP W/FASTING GLUCOSE STAT 02/04/2021 12:10 PM EDT HEMOGRAM STAT 02/04/2021 12:10 PM EDT DIFFERENTIAL, AUTOMATED STAT 02/05/20 12:10 PM EDT HC PARTIAL THROMBOPLASTIN TIME STAT 0 02/04/2021 12:10 PM EDT HC PROTHROMBIN TIME STAT 02/04/2021 12:10 PM EDT HC CBC,PLT & AUTO DIFF STAT 12:10 PM EDT HC PHOSPHORUS, SERUM STAT 02/04/2021 12:10 PM EDT HC MAGNESIUM, SERUM STAT 02/04/2021 12:10 PM EDT HC LIPASE STAT 02/04/2021 12:10 PM EDT POCT GLUCOSE Routine 02/04/2021 12:04 PM EDT documented in this encounter Results * POCT Glucose (02/16/2021 8:14 AM EDT) [facility] Glucose, POC 194 65 - 199 mg/dL [facility] Comment: Supplemental ranges: <140 mg/dL before meals <180 mg/dL all other times of the day Blood 02/16/2021 8:14 AM EDT 02/16/2021 8:14 AM EDT Vazquez Nj DO POINT OF CARE TEST O RDERABLES [facility] [place] [address] * (ABNORMAL) Hepatic Function Panel (02/16/2021 4:36 AM EDT) [facility] Protein, Total 6.8 6.1 - 8.0 gm/dL [facility] Albumin 3.3 3.2 - 5.2 gm/dL [facility] Aspartate Aminotransferase 99(H) 0 - 39 unit/L [facility] Alanine Aminotransferase 193(H) 0 - 55 unit/L [facility] Comment:result rechecked-[facility] Alkaline Phosphatase 387(H) 40 - 130 unit/L [facility] Bilirubin, Total 0.3 0.2 - 1.3 mg/dL [facility] Bilirubin, Direct 0.1 0.0 - 0.3 mg/dL [facility] Blood 02/16/2021 4:36 AM EDT 02/16/2021 5:17 AM EDT Narrative Resulting Agency Comment Spec In Lab Vazquez Nj DO CHEMISTRY ORDERABLES [facility] [place] [address] * Magnesium (02/16/2021 4:36 AM EDT) [facility] Magnesium 0.89 0.69 - 1.07 mmol/L [facility] Blood 02/16/2021 4:36 AM EDT 02/16/2021 5:17 AM EDT Narrative Resulting Agency Comment Spec In Lab Vazquez Nj DO CHEMISTRY ORDERABLES [facility] [place] [address] * (ABNORMAL) Basic Metabolic Panel (non-fasting) (02/16/2021 4:36 AM EDT) Glucose 172 65 - 199 mg/dL [facility] Comment:Diabetes: >=200 mg/d L plus symptoms Blood Urea Nitrogen 11 10 - 20 mg/dL [facility] Creatinine 0.64(L) 0.80 - 1.50 mg/dL [facility] Sodium 137 135 - 145 mmol/L [facility] Potassium 4.8 3.5 - 5.0 mmol/L [facility] Comment: Please note: ??Patients with WBC >100,000 may have falsely elevated Potassium levels. ??For accurate Potassium quantification in these patients send serum separator tube (gold top) for subsequent determinations. ??Contact the Clinical Chemistry Laboratory if there are any questions. Chloride 104 98 - 107 mmol/L [facility] Carbon Dioxide 25 22 - 31 mmol/L [facility] Anion Gap 8 5 - 15 mmol/L [facility] Calcium 8.9 8.5 - 10.5 mg/dL [facility] Est Glomerular Filtration Rate 109 >=60 mL/min/1. 73 m?? [facility] Comment: This patient? s estimated [...] Agency Comment Spec In Lab Vazquez Nj DO CHEMISTRY ORDERABLES [facility] [place] [address] * (ABNORMAL) Hemogram (02/16/2021 4:36 AM EDT) White Blood Cell 11.0(H) 4.0 - 9.5 x10(3)/mc L [facility] Red Blood Cell 3.47(L) 4.58 - 5.54 x10(6)/mc L [facility] Hemoglobin 10.7(L) 13.7 - 16.5 gm/dL [facility] Hematocrit 32.1(L) 40.5 - 48.5 % [facility] Mean Cell Volume 92.5 82.9 - 93.1 fL [facility] Mean Cell Hemoglobin 30.8 27.5 - 32.1 pg [facility] Mean Cell Hemoglobin Concentration 33.3 32.0 - 35.7 gm/dL [facility] Platelet 430(H) 145 - 357 x10(3)/mc L [facility] RDW Standard Deviation 45.5(H) 36.0 - 45.0 fL [facility] RDW coefficient of variation 13.4 11.4 - 13.8 % [facility] Mean Platelet Volume 10.3 7.6 - 12.9 fL [facility] NRBC% auto 0.0 % [facility] NRBC Absolute 0.000 0.000 - 0.000 x10(3)/mc L [facility] Blood 02/16/2021 4:36 AM EDT 02/16/2021 5:16 AM EDT Narrative Resulting Agency Comment Spec In Lab Vazquez Nj DO HEMATOLOGY ORDERABLE S Performing Organization Address [facility] Co de Phone Number [facility] [place] [address] * POCT Glucose (02/15/2021 10:14 PM EDT) Glucose, POC 183 65 - 199 mg/dL [facility] Comment: Supplemental ranges: <140 mg/dL before meals <180 mg/dL all other times of the day Blood 02/15/2021 10:1 4 PM EDT 02/15/2021 10:14 PM EDT Vazquez Nj DO POINT OF CARE TEST O RDERABLES Performing Organization Address [facility] de Phone Number [facility] [place] [address] * POCT Glucose (02/15/2021 5:02 PM EDT) Glucose, POC 132 65 - 199 mg/dL [facility] Comment: Supplemental ranges: <140 mg/dL before meals <180 mg/dL all other times of the day Blood 02/15/2021 5:02 PM EDT 02/15/2021 5:02 PM EDT Vazquez Nj DO POINT OF CARE TEST O RDERABLES Performing Organization Address [facility] Co de Phone Number [facility] [place] [address] * POCT Glucose (02/15/2021 12:38 PM EDT) Glucose, POC 138 65 - 199 mg/dL [facility] Comment: Supplemental ranges: <140 mg/dL before meals <180 mg/dL all other times of the day Blood 02/15/2021 12:3 8 PM EDT 02/15/2021 12:38 PM EDT Vazquez Nj DO POINT OF CARE TEST O RDERABLES Performing Organization Address City/[facility]/ZIP Co de Phone Number [facility] [place] [address] * POCT Glucose (02/15/2021 11:04 AM EDT) Glucose, POC 184 65 - 199 mg/dL [facility] Comment: Supplemental ranges: <140 mg/dL before meals <180 mg/dL all other times of the day Blood 02/15/2021 11:0 4 AM EDT 02/15/2021 11:04 AM EDT Vazquez Nj DO POINT OF CARE TEST O RDERABLES Performing Organization Address [facility] Co de Phone Number [facility] [place] [address] * (ABNORMAL) POCT Glucose (02/15/2021 8:20 AM EDT) Glucose, POC 253(H) 65 - 199 mg/dL [facility] Comment: Supplemental ranges: <140 mg/dL before meals <180 mg/dL all other times of the day Blood 02/15/2021 8:20 AM EDT 02/15/2021 8:20 AM EDT Vazquez Nj DO POINT OF CARE TEST O RDERABLES Performing Organization Address [facility]/ZIP Co de Phone Number [facility] [place] [address] * (ABNORMAL) Hemogram (02/15/2021 5:30 AM EDT) White Blood Cell 11.9(H) 4.0 - 9.5 x10(3)/mc L [facility] Red Blood Cell 3.65(L) 4.58 - 5.54 x10(6)/mc L [facility] Hemoglobin 11.2(L) 13.7 - 16.5 gm/dL [facility] Hematocrit 33.7(L) 40.5 - 48.5 % [facility] Mean Cell Volume 92.3 82.9 - 93.1 fL [facility] Mean Cell Hemoglobin 30.7 27.5 - 32.1 pg [facility] Mean Cell Hemoglobin Concentration 33.2 32.0 - 35.7 gm/dL [facility] Platelet 418(H) 145 - 357 x10(3)/mc L [facility] RDW Standard Deviation 45.1(H) 36.0 - 45.0 fL [facility] RDW coefficient of variation 13.2 11.4 - 13.8 % [facility] Mean Platelet Volume 10.3 7.6 - 12.9 [facility] LAB[facility]ATORY NRBC% auto 0.0 % [facility] NRBC Absolute 0.000 0.000 - 0.000 x10(3)/mc L [facility] Blood 02/15/2021 5:30 AM EDT 02/15/2021 5:56 AM EDT Narrative Resulting Agency Comment Spec In Lab Imtiaz Whatley MD HEMATOLOGY ORDERABLE S [facility] [place] [address] * (ABNORMAL) CMP w/fasting Glucose (02/15/2021 5:30 AM EDT) Glucose Fasting 166(H) 65 - 99 mg/dL [facility] Comment: ?Fasting* Glucose Interpretive Criteria Normal ?65-99 mg/dL Impaired Fasting glucose ?100-125 mg/dL Consistent with Diabetes Mellitus ? >or= 126 mg/dL *Fasting is defined as no caloric intake for at least 8 hours In the absence of unequivocal hyperglycemia a plasma glucose value of >or= 126 mg/dL should be repeated on a subsequent day. Diagnosis and Classification of Diabetes Mellitus, Position Statement from the [place] [employer]. ??Diabetes Care, Volume 33, Supplement 1, Jun 2009 Blood Urea Nitrogen 10 10 - 20 mg/dL [facility] Creatinine 0.70(L) 0.80 - 1.50 mg/dL [facility] Sodium 139 135 - 145 mmol/L [facility] Potassium 5.0 3.5 - 5.0 mmol/L [facility] Comment: Please note: ??Patients with WBC >100,000 may have falsely elevated Potassium levels. ??For accurate Potassium quantification in these patients send serum separator tube (gold top) for subsequent determinations. ??Contact the Clinical Chemistry Laboratory if there are any questions. Chloride 103 98 - 107 mmol/L [facility] Carbon Dioxide 25 22 - 31 mmol/L [facility] Anion Gap 11 5 - 15 mmol/L [facility] Calcium 9.1 8.5 - 10.5 mg/dL [facility] Protein, Total 7.1 6.1 - 8.0 gm/dL [facility] Albumin 3.5 3.2 - 5.2 gm/dL [facility] Aspartate Aminotransferase 78(H) 0 - 39 unit/L [facility] Comment:result rechecked-alejandro Alanine Aminotransferase 101(H) 0 - 55 unit/L [facility] Comment:result rechecked-alejandro Alkaline Phosphatase 308(H) 40 - 130 unit/L [facility] Comment:result rechecked-alejandro Bilirubin, Total 0.3 0.2 - 1.3 mg/dL [facility] Est Glomerular Filtration Rate 105 >=60 mL/min/1. 73 m?? [facility] Comment: This patient? s estimated glomerular filtration rate (eGFR) is between 105 mL/min/1.73 m2 (patients with less muscle mass per kg body weight) and 122 mL/min/1.73 m2 (patients with more muscle mass [...] and symptoms in addition to eGFR. Blood 02/15/2021 5:30 AM EDT 02/15/2021 5:56 AM EDT Narrative Resulting Agency Comment Spec In Lab Imtiaz Whatley MD CHEMISTRY ORDERABLES Performing Organization Address City/[facility]/ZIP Co de Phone Number [facility] [place] [address] * POCT Glucose (02/14/2021 8:52 PM EDT) Glucose, POC 171 65 - 199 mg/dL [facility] Comment: Supplemental ranges: <140 mg/dL before meals <180 mg/dL all other times of the day Blood 02/14/2021 8:52 PM EDT 02/14/2021 8:52 PM EDT Imtiaz Whatley MD POINT OF CARE TEST O RDERABLES Performing Organization Address [facility]/ZIP Co de Phone Number [facility] [place] [address] * POCT Glucose (02/14/2021 5:10 PM EDT) Glucose, POC 133 65 - 199 mg/dL [facility] Comment: Supplemental ranges: <140 mg/dL before meals <180 mg/dL all other times of the day Blood 02/14/2021 5:10 PM EDT 02/14/2021 5:10 PM EDT Imtiaz Whatley MD POINT OF CARE TEST O RDERABLES [facility] [place] [address] * (ABNORMAL) POCT Glucose (02/14/2021 11:59 AM EDT) Glucose, POC 229(H) 65 - 199 mg/dL [facility] Comment: Supplemental ranges: <140 mg/dL before meals <180 mg/dL all other times of the day Blood 02/14/2021 11:5 9 AM EDT 02/14/2021 11:59 AM EDT Imtiaz Whatley MD POINT OF CARE TEST O RDELLA Performing Organization Address [facility] Co de Phone Number [facility] [place] [address] * POCT Glucose (02/14/2021 8:28 AM EDT) Glucose, POC 112 65 - 199 mg/dL [facility] Comment: Supplemental ranges: <140 mg/dL before meals <180 mg/dL all other times of the day Blood 02/14/2021 8:28 AM EDT 02/14/2021 8:28 AM EDT Imtiaz Whatley MD POINT OF CARE TEST O RDERAPATRICK Performing Organization Address City/[facility]/ZIP Co de Phone Number [facility] [place] [address] * (ABNORMAL) Hemogram (02/14/2021 4:00 AM EDT) White Blood Cell 9.8(H) 4.0 - 9.5 x10(3)/mc L [facility] Red Blood Cell 3.09(L) 4.58 - 5.54 x10(6)/mc L [facility] Hemoglobin 9.7(L) 13.7 - 16.5 gm/dL [facility] Hematocrit 28.5(L) 40.5 - 48.5 % [facility] Mean Cell Volume 92.2 82.9 - 93.1 fL [facility] Mean Cell Hemoglobin 31.4 27.5 - 32.1 pg [facility] Mean Cell Hemoglobin Concentration 34.0 32.0 - 35.7 gm/dL [facility] Platelet 355 145 - 357 x10(3)/mc L [facility] RDW Standard Deviation 44.7 36.0 - 45.0 fL [facility] RDW coefficient of variation 13.3 11.4 - 13.8 % [facility] Mean Platelet Volume 10.3 7.6 - 12.9 fL [facility] NRBC% auto 0.0 % [facility] NRBC Absolute 0.000 0.000 - 0.000 x10(3)/mc L [facility] Blood 02/14/2021 4:00 AM EDT 02/14/2021 4:22 AM EDT Narrative Resulting Agency Comment Spec In Lab Imtiaz Whatley MD HEMATOLOGY ORDERABLE S Performing Organization Address City/State/[facility] Co de Phone Number [facility] [place] [address] * (ABNORMAL) CMP w/fasting Glucose (02/14/2021 4:00 AM EDT) Glucose Fasting 128(H) 65 - 99 mg/dL [facility] Comment: ?Fasting* Glucose Interpretive Criteria Normal ?65-99 mg/dL Impaired Fasting glucose ?100-125 mg/dL Consistent with Diabetes Mellitus ? >or= 126 mg/dL *Fasting is defined as no caloric intake for at least 8 hours In the absence of unequivocal hyperglycemia a plasma glucose value of >or= 126 mg/dL should be repeated on a subsequent day. Diagnosis and Classification of Diabetes Mellitus, Position Statement from the [place] [employer]. ??Diabetes Care, Volume 33, Supplement 1, Jun 2009 Blood Urea Nitrogen 8(L) 10 - 20 mg/dL [facility] Creatinine 0.71(L) 0.80 - 1.50 mg/dL [facility] Sodium 136 135 - 145 mmol/L [facility] Potassium 4.3 3.5 - 5.0 mmol/L [facility] Comment: Please note: ??Patients with WBC >100,000 may have falsely elevated Potassium levels. ??For accurate Potassium quantification in these patients send serum separator tube (gold top) for subsequent determinations. ??Contact the Clinical Chemistry Laboratory if there are any questions. Chloride 104 98 - 107 mmol/L [facility] Carbon Dioxide 25 22 - 31 mmol/L [facility] Anion Gap 7 5 - 15 mmol/L [facility] Calcium 8.3(L) 8.5 - 10.5 mg/dL [facility] Protein, Total 6.0(L) 6.1 - 8.0 gm/dL [facility] Albumin 2.8(L) 3.2 - 5.2 gm/dL [facility] Aspartate Aminotransferase 20 0 - 39 unit/L [facility] Alanine Aminotransferase 34 0 - 55 unit/L [facility] Alkaline Phosphatase 113 40 - 130 unit/L [facility] Bilirubin, Total 0.3 0.2 - 1.3 mg/dL [facility] Est Glomerular Filtration Rate 105 >=60 mL/min/1. 73 m?? [facility] Comment: This patient? s estimated glomerular filtration rate (eGFR) is between 105 mL/min/1.73 m2 (patients with less muscle mass per kg body weight) and 122 mL/min/1.73 m2 (patients with more muscle mass [...] and symptoms in addition to eGFR. Blood 02/14/2021 4:00 AM EDT 02/14/2021 4:22 AM EDT Narrative Resulting Agency Comment Spec In Lab Imtiaz Whatley MD CHEMISTRY ORDERABLES Performing Organization Address [facility] Co de Phone Number [facility] [place] [address] * Phosphorus (02/14/2021 4:00 AM EDT) Phosphorus 3.3 2.5 - 4.5 mg/dL [facility] Blood 02/14/2021 4:00 AM EDT 02/14/2021 4:22 AM EDT Narrative Resulting Agency Comment Spec In Lab Imtiaz Whatley MD CHEMISTRY ORDERABLES Performing Organization Address [facility] de Phone Number [facility] [place] [address] * (ABNORMAL) POCT Glucose (02/13/2021 9:08 PM EDT) Glucose, POC 214(H) 65 - 199 mg/dL [facility] Comment: Supplemental ranges: <140 mg/dL before meals <180 mg/dL all other times of the day Blood 02/13/2021 9:08 PM EDT 02/13/2021 9:08 PM EDT Imtiaz Whatley MD POINT OF CARE TEST O RDERABLES Performing Organization Address [facility] Co de Phone Number [facility] [place] [address] * MRI Cholangiopancreatography (02/13/2021 7:01 PM EDT) Anatomical Region Laterality Modality Magnetic Resonan ce Impressions 02/14/2021 9:01 AM EDT 1. ??Ongoing necrotizing pancreatitis with acute peripancreatic fluid collections, the largest of which extends into the gastrosplenic ligament. 2. ??The pancreatic and common bile ducts are intact. 3. ??Choledocholithiasis within the caudal common bile duct. ??No biliary ductal dilatation. 4. ??Cholelithiasis and hydropic gallbladder. I have personally reviewed the image(s) and the resident's interpretation and agree with the findings, Sal Walton DO at 02/14/2021 9:01 AM Thank you for letting us participate in the care of this patient. ??If you are a health care provider and have any questions regarding this report, please contact the number below. ??For patients who have questions please contact the health live in caregiver that requested your imaging first. ? Electronically signed by: Sal Walton DO, [facility] ([phone]), at 02/14/2021 9:01 AM Narrative 02/14/2021 9:01 AM EDT EXAMINATION: MRI CHOLANGIOPANCREATOGRAPHY CLINICAL HISTORY: 55-year-old male with no stone pancreatitis. ??Now with new onset of fevers. ??CT imaging concerning for duct disruption. TECHNIQUE: 3D-MRCP, axial and coronal 2D MRCP, axial T2 fast (turbo) spin-echo with fat saturation, axial 2D T1 weighted in/out phase. 3D MIPS were created. COMPARISON: CT abdomen dated 02/10/2021. FINDINGS: Limitations: Lack of intravenous contrast limits evaluation of the visceral organs, gastrointestinal tract, and vascular structures. Machining Associate Images: Noncontributory. Liver: Normal. Bile ducts: Intrahepatic bile ducts are well visualized and normal in caliber. The common bile duct is normal caliber. ??Within the caudal common bile duct, adjacent to the ampulla Vater, there are several small, sub-5 mm, T2 hypointense intraluminal filling defects consistent with choledocholithiasis. The common bile duct is intact. Gallbladder: Numerous round T2 hypointense filling defects layering dependently within the gallbladder. Hydropic gallbladder. Normal gallbladder wall. No. A cholecystic fluid collection. Pancreas: The pancreas is enlarged. There is a portion of the pancreatic neck and body which displays geographic T2 hypointensity in the body of the pancreas. A similar T2 hypointense focus is present within the uncinate process is well. The peripancreatic flat demonstrates diffuse inflammatory change with fat stranding. ??Similar to the most recent prior CT, there are peripancreatic fluid collections, the largest of which extends from the superior aspect of the pancreatic body into the the gastrosplenic ligament with a dominant collection measuring 10 x 7.5 cm. ??There are additional less well-defined fluid collections along the ventral aspect of the pancreas diffusely extending along the root of the mesentery. Pancreatic duct: No peripancreatic duct disruption is visualized. ??The pancreatic duct within the neck, body, and tail is diminutive as compared to the pancreatic duct within the pancreatic head; however, they appear continuous. Spleen: Normal. Adrenal glands: Normal. Kidneys: Several small T2 cysts kidneys. Bowel and mesentery: Non-dilated. No inflammatory changes. Lymph nodes: No adenopathy. Osseous structures: No focal marrow signal abnormality. Procedure Note Sal Walton, - 02/14/2021 EXAMINATION: MRI CHOLANGIOPANCREATOGRAPHY CLINICAL HISTORY: 55-year-old male with no stone pancreatitis. Now withnew onset of fevers. CT imaging concerning for duct disruption. TECHNIQUE: 3D-MRCP, axial and coronal 2D MRCP, axial T2 fast (turbo)spin-echo with fat saturation, axial 2D T1 weighted in/out phase. 3D MIPS werecreated. COMPARISON: CT abdomen dated 02/10/2021. FINDINGS: Limitations: Lack of intravenous contrast limits evaluation of thevisceral organs, gastrointestinal tract, and vascular structures. Machining Associate Images: Noncontributory. Liver: Normal. Bile ducts: Intrahepatic bile ducts are well visualized and normal incaliber. The common bile duct is normal caliber. Within the caudal common bileduct, adjacent to the ampulla Vater, there are several small, sub-5 mm, [id number] intraluminal filling defects consistent with choledocholithiasis. Thecommon bile duct is intact. Gallbladder: Numerous round T2 hypointense filling defects layeringdependently within the gallbladder. Hydropic gallbladder. Normal gallbladder wall. No.A cholecystic fluid collection. Pancreas: The pancreas is enlarged. There is a portion of the pancreaticneck and body which displays geographic T2 hypointensity in the body of thepancreas. A similar T2 hypointense focus is present within the uncinate process iswell. The peripancreatic flat demonstrates diffuse inflammatory change withfat stranding. Similar to the most recent prior CT, there are peripancreaticfluid collections, the largest of which extends from the superior aspect ofthe pancreatic body into the the gastrosplenic ligament with a dominantcollection measuring 10 x 7.5 cm. There are additional less well-defined fluidcollections along the ventral aspect of the pancreas diffusely extending along theroot of the mesentery. Pancreatic duct: No peripancreatic duct disruption is visualized. The pancreatic duct within the neck, body, and tail is diminutive as comparedto the pancreatic duct within the pancreatic head; however, they appearcontinuous. Spleen: Normal. Adrenal glands: Normal. Kidneys: Several small T2 cysts kidneys. Bowel and mesentery: Non-dilated. No inflammatory changes. Lymph nodes: No adenopathy. Osseous structures: No focal marrow signal abnormality. IMPRESSION 1. Ongoing necrotizing pancreatitis with acute peripancreatic fluid collections, the largest of which extends into the gastrosplenic ligament. 2. The pancreatic and common bile ducts are intact. 3. Choledocholithiasis within the caudal common bile duct. No biliaryductal dilatation. 4. Cholelithiasis and hydropic gallbladder. I have personally reviewed the image(s) and the resident's interpretationand agree with the findings, Sal Walton DO at 02/14/2021 9:01 AM Thank you for letting us participate in the care of this patient. If youare a health care provider and have any questions regarding this report,please contact the number below. For patients who have questions please contactthe health live in caregiver that requested your imaging first. Electronically signed by: Sal Walton DO, [facility]([phone]), at 02/14/2021 9:01 AM Imtiaz Whatley MD IMG MRI ORDERABLES * Urine Hold (02/13/2021 6:00 PM EDT) Hold, Urine Sample in lab. [facility] Urine Urine / Unknown 02/13/2021 6 :00 PM EDT 02/13/2021 6:13 PM EDT Imtiaz Whatley MD URINE ORDERABLES Performing Organization Address City/[facility]/ZIP Co de Phone Number [facility] [place] [address] * Urinalysis with reflex Culture (02/13/2021 6:00 PM EDT) Glucose, Urine Dipstick Negative Negative mg/dL [facility] Protein, Urine Dipstick Negative Negative mg/dL [facility] Bilirubin, Urine Dipstick Negative Negative mg/dL [facility] Comment: Clinical correlation required for positive Urine Bilirubin results as false positive may occur with some drugs and drug related products. If a false positive is suspected a serum total bilirubin should be considered if clinically indicated. Urobilinogen, Urine Dipstick Normal Normal mg/dL [facility] pH, Urn (dipstick) 7.0 5.0 - 8.0 [facility] Blood, Urine Dipstick Negative Negative mg/dL [facility] Ketone, Urine Dipstick Negative Negative mg/dL [facility] Nitrite, Urine Dipstick Negative Negative [facility] Leukocytes, Urine Dipstick Negative Negative mcL [facility] Appearance, Urine Dipstick Clear Clear [facility] Specific [place] Urine Automated 1.010 1.005 - 1.030 [facility] Color, Urine Dipstick Yellow Yellow [facility] Reflex to Culture No [facility] Clean Catch Urine 02/13/2021 6:00 PM EDT 02/13/2021 6:12 PM EDT Narrative Resulting Agency Comment Spec In Lab Imtiaz Whatley MD URINE ORDERABLES [facility] [place] [address] * POCT Glucose (02/13/2021 3:59 PM EDT) Glucose, POC 136 65 - 199 mg/dL [facility] Comment: Supplemental ranges: <140 mg/dL before meals <180 mg/dL all other times of the day Blood 02/13/2021 3:59 PM EDT 02/13/2021 3:59 PM EDT Imtiaz Whatley MD POINT OF CARE TEST O RDERABLES Performing Organization Address [facility] Co de Phone Number [facility] [place] [address] * POCT Glucose (02/13/2021 12:05 PM EDT) Glucose, POC 153 65 - 199 mg/dL [facility] Comment: Supplemental ranges: <140 mg/dL before meals <180 mg/dL all other times of the day Blood 02/13/2021 12:0 5 PM EDT 02/13/2021 12:05 PM EDT Imtiaz Whatley MD POINT OF CARE TEST O RDERAPATRICK Performing Organization Address [facility] Co de Phone Number [facility] [place] [address] * POCT Glucose (02/13/2021 8:14 AM EDT) Glucose, POC 175 65 - 199 mg/dL [facility] Comment: Supplemental ranges: <140 mg/dL before meals <180 mg/dL all other times of the day Blood 02/13/2021 8:14 AM EDT 02/13/2021 8:14 AM EDT Imtiaz Whatley MD POINT OF CARE TEST O RDERABLES Performing Organization Address City/[facility]/ZIP Co de Phone Number [facility] [place] [address] * (ABNORMAL) Hemogram (02/13/2021 4:20 AM EDT) [facility] White Blood Cell 13.7(H) 4.0 - 9.5 x10(3)/mc L [facility] Red Blood Cell 3.42(L) 4.58 - 5.54 x10(6)/mc L [facility] Hemoglobin 10.5(L) 13.7 - 16.5 gm/dL [facility] Hematocrit 31.5(L) 40.5 - 48.5 % [facility] Mean Cell Volume 92.1 82.9 - 93.1 fL [facility] Mean Cell Hemoglobin 30.7 27.5 - 32.1 pg [facility] Mean Cell Hemoglobin Concentration 33.3 32.0 - 35.7 gm/dL [facility] Platelet 383(H) 145 - 357 x10(3)/mc L [facility] RDW Standard Deviation 46.0(H) 36.0 - 45.0 fL [facility] RDW coefficient of variation 13.5 11.4 - 13.8 % [facility] Mean Platelet Volume 10.6 7.6 - 12.9 fL [facility] NRBC% auto 0.0 % [facility] NRBC Absolute 0.000 0.000 - 0.000 x10(3)/ L [facility] Blood 02/13/2021 4:20 AM EDT 02/13/2021 4:47 AM EDT Narrative Resulting Agency Comment Spec In Lab Imtiaz Whatley MD HEMATOLOGY ORDERABLE S [facility] [place] [address] * (ABNORMAL) CMP w/fasting Glucose (02/13/2021 4:20 AM EDT) [facility] Glucose Fasting 144(H) 65 - 99 mg/dL [facility] Comment: ?Fasting* Glucose Interpretive Criteria Normal ?65-99 mg/dL Impaired Fasting glucose ?100-125 mg/dL Consistent with Diabetes Mellitus ? >or= 126 mg/dL *Fasting is defined as no caloric intake for at least 8 hours In the absence of unequivocal hyperglycemia a plasma glucose value of >or= 126 mg/dL should be repeated on a subsequent day. Diagnosis and Classification of Diabetes Mellitus, Position Statement from the [place] [employer]. ??Diabetes Care, Volume 33, Supplement 1, Jun 2009 Blood Urea Nitrogen 6(L) 10 - 20 mg/dL [facility] Creatinine 0.68(L) 0.80 - 1.50 mg/dL [facility] Sodium 138 135 - 145 mmol/L [facility] Potassium 4.3 3.5 - 5.0 mmol/L [facility] Comment: Please note: ??Patients with WBC >100,000 may have falsely elevated Potassium levels. ??For accurate Potassium quantification in these patients send serum separator tube (gold top) for subsequent determinations. ??Contact the Clinical Chemistry Laboratory if there are any questions. Chloride 104 98 - 107 mmol/L [facility] Carbon Dioxide 26 22 - 31 mmol/L [facility] Anion Gap 8 5 - 15 mmol/L [facility] Calcium 8.2(L) 8.5 - 10.5 mg/dL [facility] Protein, Total 6.5 6.1 - 8.0 gm/dL [facility] Albumin 3.1(L) 3.2 - 5.2 gm/dL [facility] Aspartate Aminotransferase 32 0 - 39 unit/L [facility] Alanine Aminotransferase 53 0 - 55 unit/L [facility] Alkaline Phosphatase 142(H) 40 - 130 unit/L [facility] Bilirubin, Total 0.4 0.2 - 1.3 mg/dL [facility] Est Glomerular Filtration Rate 107 >=60 mL/min/1. 73 m?? [facility] Comment: This patient? s estimated glomerular filtration rate (eGFR) is between 107 mL/min/1.73 m2 (patients with less muscle mass per kg body weight) and 124 mL/min/1.73 m2 (patients with more muscle mass [...] and symptoms in addition to eGFR. Blood 02/13/2021 4:20 AM EDT 02/13/2021 4:47 AM EDT Narrative Resulting Agency Comment Spec In Lab Imtiaz Whatley MD CHEMISTRY ORDERABLES Performing Organization Address City/[facility]/ZIP Co de Phone Number [facility] [place] [address] * (ABNORMAL) POCT Glucose (02/12/2021 8:13 PM EDT) Glucose, POC 230(H) 65 - 199 mg/dL [facility] Comment: Supplemental ranges: <140 mg/dL before meals <180 mg/dL all other times of the day Blood 02/12/2021 8:13 PM EDT 02/12/2021 8:13 PM EDT Imtiaz Whatley MD POINT OF CARE TEST O RDERABLES Performing Organization Address City/[facility]/ZIP Co de Phone Number [facility] [place] [address] * POCT Glucose (02/12/2021 4:40 PM EDT) Glucose, POC 194 65 - 199 mg/dL [facility] Comment: Supplemental ranges: <140 mg/dL before meals <180 mg/dL all other times of the day Blood 02/12/2021 4:40 PM EDT 02/12/2021 4:40 PM EDT Imtiaz Whatley MD POINT OF CARE TEST O RDERABLES [facility] [place] [address] * POCT Glucose (02/12/2021 11:45 AM EDT) Pathologist [facility] Glucose, POC 147 65 - 199 mg/dL [facility] Comment: Supplemental ranges: <140 mg/dL before meals <180 mg/dL all other times of the day Blood 02/12/2021 11:4 5 AM EDT 02/12/2021 11:45 AM EDT Imtiaz Whatley MD POINT OF CARE TEST O RDERAPATRICK [facility] [place] [address] * (ABNORMAL) Differential, Automated (02/12/2021 9:26 AM EDT) [facility] Neutrophil % 83.3 % [facility] Neutrophil Absolute 10.91(H) 1.70 - 6.10 x10(3)/mc L [facility] Lymph % 8.5 % [facility] Lymphocytes Abs 1.1 0.9 - 3.2 x10(3)/mc L [facility] Monocyte % 5.6 % [facility] Monocyte Abs 0.7 0.3 - 0.9 x10(3)/mc L [facility] Eos % 1.4 % [facility] Eosinophils Abs 0.2 0.0 - 0.4 x10(3)/mc L [facility] Basophil % 0.4 % [facility] Baso Absolute 0.0 0.0 - 0.1 x10(3)/mc L [facility] Immature Gran % 0.80 % [facility] Comment: Immature granulocytes(IG's)percentage and absolute count will include metamyelocytes, myelocytes, and promyelocytes. Blood smears from CBCs yielding IG's will be scanned manually for concordance. If this scan disagrees with the automated IG or if promyelocytes are noted, a manual differential will be performed. Immature Gran Absolute 0.11(H) 0.00 - 0.04 x10(3)/mc L [facility] Blood 02/12/2021 9:26 AM EDT 02/12/2021 9:34 AM EDT Narrative Resulting Agency Comment Spec In Lab Imtiaz Whatley MD HEMATOLOGY ORDERABLE S Performing Organization Address City/State/[facility] Co de Phone Number [facility] [place] [address] * (ABNORMAL) Hemogram (02/12/2021 9:26 AM EDT) White Blood Cell 13.1(H) 4.0 - 9.5 x10(3)/mc L [facility] Red Blood Cell 3.14(L) 4.58 - 5.54 x10(6)/mc L [facility] Hemoglobin 9.8(L) 13.7 - 16.5 gm/dL [facility] Hematocrit 29.0(L) 40.5 - 48.5 % [facility] Mean Cell Volume 92.4 82.9 - 93.1 fL [facility] Mean Cell Hemoglobin 31.2 27.5 - 32.1 pg [facility] Mean Cell Hemoglobin Concentration 33.8 32.0 - 35.7 gm/dL [facility] Platelet 331 145 - 357 x10(3)/mc L [facility] RDW Standard Deviation 46.5(H) 36.0 - 45.0 fL [facility] RDW coefficient of variation 13.6 11.4 - 13.8 % [facility] Mean Platelet Volume 10.1 7.6 - 12.9 fL [facility] NRBC% auto 0.0 % [facility] NRBC Absolute 0.000 0.000 - 0.000 x10(3)/mc L [facility] Blood 02/12/2021 9:26 AM EDT 02/12/2021 9:34 AM EDT Narrative Resulting Agency Comment Spec In Lab Imtiaz Whatley MD HEMATOLOGY ORDERABLE S [facility] [place] [address] * (ABNORMAL) Comprehensive metabolic panel (non-fasting) (02/12/2021 9:26 AM EDT) Glucose 190 65 - 199 mg/dL [facility] Comment:Diabetes: >=200 mg/d L plus symptoms Blood Urea Nitrogen 5(L) 10 - 20 mg/dL [facility] Creatinine 0.74(L) 0.80 - 1.50 mg/dL [facility] Sodium 139 135 - 145 mmol/L [facility] Potassium 4.0 3.5 - 5.0 mmol/L [facility] Comment: Please note: ??Patients with WBC >100,000 may have falsely elevated Potassium levels. ??For accurate Potassium quantification in these patients send serum separator tube (gold top) for subsequent determinations. ??Contact the Clinical Chemistry Laboratory if there are any questions. Chloride 106 98 - 107 mmol/L [facility] Carbon Dioxide 25 22 - 31 mmol/L [facility] Anion Gap 8 5 - 15 mmol/L [facility] Calcium 8.1(L) 8.5 - 10.5 mg/dL [facility] Protein, Total 6.1 6.1 - 8.0 gm/dL [facility] Albumin 2.9(L) 3.2 - 5.2 gm/dL [facility] Aspartate Aminotransferase 60(H) 0 - 39 unit/L [facility] Comment:rechecked-ds Alanine Aminotransferase 56(H) 0 - 55 unit/L [facility] Comment:rechecked-ds Alkaline Phosphatase 153(H) 40 - 130 unit/L [facility] Bilirubin, Total 0.5 0.2 - 1.3 mg/dL [facility] Est Glomerular Filtration Rate 103 >=60 mL/min/1. 73 m?? [facility] Comment: This patient? s estimated glomerular filtration rate (eGFR) is between 103 mL/min/1.73 m2 (patients with less muscle mass per kg body weight) and 120 mL/min/1.73 m2 (patients with more muscle mass [...] and symptoms in addition to eGFR. Blood 02/12/2021 9:26 AM EDT 02/12/2021 9:34 AM EDT Narrative Resulting Agency Comment Spec In Lab Imtiaz Whatley MD CHEMISTRY ORDERABLES Performing Organization Address City/[facility]/ZIP Co de Phone Number [facility] [place] [address] * POCT Glucose (02/12/2021 8:12 AM EDT) Glucose, POC 162 65 - 199 mg/dL [facility] Comment: Supplemental ranges: <140 mg/dL before meals <180 mg/dL all other times of the day Blood 02/12/2021 8:12 AM EDT 02/12/2021 8:12 AM EDT Imtiaz Whatley MD POINT OF CARE TEST O RDERABLES [facility] [place] [address] * (ABNORMAL) POCT Glucose (02/11/2021 7:49 PM EDT) Glucose, POC 243(H) 65 - 199 mg/dL [facility] Comment: Supplemental ranges: <140 mg/dL before meals <180 mg/dL all other times of the day Blood 02/11/2021 7:49 PM EDT 02/11/2021 7:49 PM EDT Imtiaz Whatley MD POINT OF CARE TEST O RDERABLES Performing Organization Address [facility] Co de Phone Number [facility] [place] [address] * (ABNORMAL) POCT Glucose (02/11/2021 5:10 PM EDT) Glucose, POC 213(H) 65 - 199 mg/dL [facility] Comment: Supplemental ranges: <140 mg/dL before meals <180 mg/dL all other times of the day Blood 02/11/2021 5:10 PM EDT 02/11/2021 5:10 PM EDT Imtiaz Whatley MD POINT OF CARE TEST O RDERABLES Performing Organization Address [facility] Co de Phone Number [facility] [place] [address] * POCT Glucose (02/11/2021 11:51 AM EDT) Glucose, POC 156 65 - 199 mg/dL [facility] Comment: Supplemental ranges: <140 mg/dL before meals <180 mg/dL all other times of the day Blood 02/11/2021 11:5 1 AM EDT 02/11/2021 11:51 AM EDT Imtiaz Whatley MD POINT OF CARE TEST O RDERABLES [facility] [place] [address] * POCT Glucose (02/11/2021 7:29 AM EDT) Pathologist [facility] Glucose, POC 147 65 - 199 mg/dL [facility] Comment: Supplemental ranges: <140 mg/dL before meals <180 mg/dL all other times of the day Blood 02/11/2021 7:29 AM EDT 02/11/2021 7:29 AM EDT Imtiaz Whatley MD POINT OF CARE TEST O RDERABLES [facility] [place] [address] * (ABNORMAL) Differential, Automated (02/11/2021 4:50 AM EDT) [facility] Neutrophil % 84.9 % [facility] Neutrophil Absolute 10.77(H) 1.70 - 6.10 x10(3)/mc L [facility] Lymph % 6.5 % [facility] Lymphocytes Abs 0.8(L) 0.9 - 3.2 x10(3)/mc L [facility] Monocyte % 5.4 % [facility] Monocyte Abs 0.7 0.3 - 0.9 x10(3)/mc L [facility] Eos % 1.6 % [facility] Eosinophils Abs 0.2 0.0 - 0.4 x10(3)/mc L [facility] Basophil % 0.3 % [facility] Baso Absolute 0.0 0.0 - 0.1 x10(3)/mc L [facility] Immature Gran % 1.30 % [facility] Comment: Immature granulocytes(IG's)percentage and absolute count will include metamyelocytes, myelocytes, and promyelocytes. Blood smears from CBCs yielding IG's will be scanned manually for concordance. If this scan disagrees with the automated IG or if promyelocytes are noted, a manual differential will be performed. Immature Gran Absolute 0.16(H) 0.00 - 0.04 x10(3)/ L [facility] Blood 02/11/2021 4:50 AM EDT 02/11/2021 5:00 AM EDT Narrative Resulting Agency Comment Spec In Lab Imtiaz Whatley MD HEMATOLOGY ORDERABLE S [facility] [place] [address] * (ABNORMAL) Hemogram (02/11/2021 4:50 AM EDT) White Blood Cell 12.7(H) 4.0 - 9.5 x10(3)/ L [facility] Red Blood Cell 2.85(L) 4.58 - 5.54 x10(6)/[facility] Hemoglobin 8.9(L) 13.7 - 16.5 gm/dL [facility] Hematocrit 26.1(L) 40.5 - 48.5 % [facility] Mean Cell Volume 91.6 82.9 - 93.1 [facility] Mean Cell Hemoglobin 31.2 27.5 - 32.1 pg [facility] Mean Cell Hemoglobin Concentration 34.1 32.0 - 35.7 gm/dL [facility] Platelet 275 145 - 357 x10(3)/ L [facility] RDW Standard Deviation 46.3(H) 36.0 - 45.0 [facility] RDW coefficient of variation 13.7 11.4 - 13.8 % [facility] Mean Platelet Volume 10.5 7.6 - 12.9 [facility] NRBC% auto 0.0 % [facility] NRBC Absolute 0.000 0.000 - 0.000 x10(3)/ L [facility] Blood 02/11/2021 4:50 AM EDT 02/11/2021 5:00 AM EDT Narrative Resulting Agency Comment Spec In Lab Imtiaz Whatley MD HEMATOLOGY ORDERABLE S Performing Organization Address [facility] de Phone Number [facility] [place] [address] * (ABNORMAL) Hepatic Function Panel (02/11/2021 4:50 AM EDT) Protein, Total 5.2(L) 6.1 - 8.0 gm/dL [facility] Albumin 2.5(L) 3.2 - 5.2 gm/dL [facility] Aspartate Aminotransferase 24 0 - 39 unit/L [facility] Alanine Aminotransferase 27 0 - 55 unit/L [facility] Alkaline Phosphatase 90 40 - 130 unit/L [facility] Bilirubin, Total 0.4 0.2 - 1.3 mg/dL [facility] Bilirubin, Direct 0.2 0.0 - 0.3 mg/dL [facility] Blood 02/11/2021 4:50 AM EDT 02/11/2021 5:00 AM EDT Narrative Resulting Agency Comment Spec In Lab Imtiaz Whatley MD CHEMISTRY ORDERABLES Performing Organization Address [facility] de Phone Number [facility] [place] [address] * (ABNORMAL) BMP w/fasting Glucose (02/11/2021 4:50 AM EDT) Glucose Fasting 206(H) 65 - 99 mg/dL [facility] Comment: ?Fasting* Glucose Interpretive Criteria Normal ?65-99 mg/dL Impaired Fasting glucose ?100-125 mg/dL Consistent with Diabetes Mellitus ? >or= 126 mg/dL *Fasting is defined as no caloric intake for at least 8 hours In the absence of unequivocal hyperglycemia a plasma glucose value of >or= 126 mg/dL should be repeated on a subsequent day. Diagnosis and Classification of Diabetes Mellitus, Position Statement from the [place] [employer]. ??Diabetes Care, Volume 33, Supplement 1, Jun 2009 Blood Urea Nitrogen 8(L) 10 - 20 mg/dL [facility] Creatinine 0.74(L) 0.80 - 1.50 mg/dL [facility] Sodium 140 135 - 145 mmol/L [facility] Potassium 3.5 3.5 - 5.0 mmol/L [facility] Comment: Please note: ??Patients with WBC >100,000 may have falsely elevated Potassium levels. ??For accurate Potassium quantification in these patients send serum separator tube (gold top) for subsequent determinations. ??Contact the Clinical Chemistry Laboratory if there are any questions. Chloride 105 98 - 107 mmol/L [facility] Carbon Dioxide 27 22 - 31 mmol/L [facility] Anion Gap 8 5 - 15 mmol/L [facility] Calcium 7.9(L) 8.5 - 10.5 mg/dL [facility] Est Glomerular Filtration Rate 103 >=60 mL/min/1. 73 m?? [facility] Comment: This patient? s estimated glomerular filtration rate (eGFR) is between 103 mL/min/1.73 m2 (patients with less muscle mass per kg body weight) and 120 mL/min/1.73 m2 (patients with more muscle mass [...] and symptoms in addition to eGFR. Blood 02/11/2021 4:50 AM EDT 02/11/2021 5:00 AM EDT Narrative Resulting Agency Comment Spec In Lab Imtiaz Whatley MD CHEMISTRY ORDERABLES [facility] [place] [address] * CT Abdomen w Contrast (02/10/2021 10:50 PM EDT) Anatomical Region Laterality Modality Abdomen Computed Tomogra phy 02/10/2021 11:0 7 PM EDT Impressions 02/11/2021 1:10 AM EDT 1. ??Similar appearance of necrotizing pancreatitis with mild interval increase in edema and fluid in the lesser sac. 2. ??Evidence of [place] Turn[place] and [place] sign. 3. ?? Interval enlargement of gallbladder. Ptotic gallbladder. Cannot rule out cholecystitis. Thank you for letting us participate in the care of this patient. ??If you are a health care provider and have any questions regarding this report, please contact the number below. ??For patients who have questions please contact the health live in caregiver that requested your imaging first. ? Narrative 02/11/2021 1:10 AM EDT EXAMINATION: CT ABDOMEN W CONTRAST CLINICAL HISTORY: Pancreatitis, acute, initial episode new fevers in a patient with known necrotic pancreatitis. Assess for signs of infected necrosis TECHNIQUE: Helical CT of the abdomen was performed following the intravenous administration of contrast. Administered 120.0 ml of OMNIPAQUE 350.00 mg/ml. Water enteric contrast was administered. COMPARISON: 02/07/2021 FINDINGS: Lower chest: Airless lung adjacent to the hemidiaphragm bilaterally, left greater than right facet atelectasis. Trace pleural fluid bilaterally. . Liver: Diffuse low-attenuation of the liver without focal lesion. Hepatic steatosis. Bile ducts: Nondilated. Gallbladder: Several small foci of low attenuation consistent with cholesterol stones. No gallbladder wall thickening. Interval increase in size of gallbladder. Now ptotic. Cannot rule out cholecystitis Pancreas: There is pancreatic necrosis with nonenhancing components of the pancreas extending from portion of the pancreatic head through the pancreatic neck and body. There is a enhancing component of the distal body and tail. No ductal dilatation. There is similar pattern of fluid attenuation extending to the lesser sac. There is abnormal edema in the anterior pararenal space and extending inferiorly adjacent to the duodenum and superiorly adjacent to the stomach. The pattern of changes appears similar however the amount of fluid attenuation appears somewhat enlarged compared to prior exam. Not see maturation of the fluid and no rim enhancement is seen. The degree of fat stranding is similar to prior exam. Spleen: Normal. Adrenal: Normal. Kidneys: Scarring posterior superior left kidney unchanged. Symmetric nephrograms. No obstruction or mass. Similar stranding adjacent to the kidneys with small amount of fluid adjacent to the right kidney in the perirenal space. Vasculature: No aneurysm. Lymph nodes: No enlarged lymph nodes. Bowel: Nondilated, no wall thickening. Peritoneum and mesentery: Thickening of the lateral conal fascia bilaterally. Free fluid in the pelvis not included on this exam. Abdominal wall: There is edema projecting in the flanks bilaterally and small amount of edema associated with the soft tissue adjacent to the umbilicus, findings are characteristic of [place] and [place] sign. Osseous structures: No suspicious lesions. Procedure Note Wyatt Mitchell MD - 02/11/2021 EXAMINATION: CT ABDOMEN W CONTRAST CLINICAL HISTORY: Pancreatitis, acute, initial episode new fevers in a patient with known necrotic pancreatitis. Assess for signsof infected necrosis TECHNIQUE: Helical CT of the abdomen was performed following theintravenous administration of contrast. Administered 120.0 ml of OMNIPAQUE 350.00mg/ml. Water enteric contrast was administered. COMPARISON: 02/07/2021 FINDINGS: Lower chest: Airless lung adjacent to the hemidiaphragm bilaterally,left greater than right facet atelectasis. Trace pleural fluid bilaterally. . Liver: Diffuse low-attenuation of the liver without focal lesion.Hepatic steatosis. Bile ducts: Nondilated. Gallbladder: Several small foci of low attenuation consistent withcholesterol stones. No gallbladder wall thickening. Interval increase in size of gallbladder. Now ptotic. Cannot rule out cholecystitis Pancreas: There is pancreatic necrosis with nonenhancing components ofthe pancreas extending from portion of the pancreatic head through thepancreatic neck and body. There is a enhancing component of the distal body and tail.No ductal dilatation. There is similar pattern of fluid attenuation extending to the lesser sac.There is abnormal edema in the anterior pararenal space and extendinginferiorly adjacent to the duodenum and superiorly adjacent to the stomach. Thepattern of changes appears similar however the amount of fluid attenuation appearssomewhat enlarged compared to prior exam. Not see maturation of the fluid and norim enhancement is seen. The degree of fat stranding is similar to prior exam. Spleen: Normal. Adrenal: Normal. Kidneys: Scarring posterior superior left kidney unchanged. Symmetric nephrograms. No obstruction or mass. Similar stranding adjacent to the kidneys with small amount of fluidadjacent to the right kidney in the perirenal space. Vasculature: No aneurysm. Lymph nodes: No enlarged lymph nodes. Bowel: Nondilated, no wall thickening. Peritoneum and mesentery: Thickening of the lateral conal fasciabilaterally. Free fluid in the pelvis not included on this exam. Abdominal wall: There is edema projecting in the flanks bilaterally andsmall amount of edema associated with the soft tissue adjacent to theumbilicus, findings are characteristic of [place] Turners and Kevin sign. Osseous structures: No suspicious lesions. IMPRESSION 1. Similar appearance of necrotizing pancreatitis with mild intervalincrease in edema and fluid in the lesser sac. 2. Evidence of [place] Turners and Kevin sign. 3. Interval enlargement of gallbladder. Ptotic gallbladder. Cannot ruleout cholecystitis. Thank you for letting us participate in the care of this patient. If youare a health care provider and have any questions regarding this report,please contact the number below. For patients who have questions please contactthe health live in caregiver that requested your imaging first. Electronically signed by: Wyatt Mitchell MD, [facility]([phone]), at 02/11/2021 1:10 AM Imtiaz Whatley MD IMG CT ORDERABLES * POCT Glucose (02/10/2021 9:38 PM EDT) Glucose, POC 180 65 - 199 mg/dL [facility] Comment: Supplemental ranges: <140 mg/dL before meals <180 mg/dL all other times of the day Blood 02/10/2021 9:38 PM EDT 02/10/2021 9:38 PM EDT Imtiaz Whatley MD POINT OF CARE TEST O RDERABLES [facility] [place] [address] * Blood culture (02/10/2021 6:52 PM EDT) Blood Culture No growth at 5 days. [facility] Blood 02/10/2021 6:52 PM EDT 02/10/2021 7:15 PM EDT Comment:RH Narrative Resulting Agency Comment Spec In Lab Imtiaz Whatley MD MICROBIOLOGY - BLOOD ORDERABLES [facility] [place] [address] * Blood culture (02/10/2021 6:39 PM EDT) Blood Culture No growth at 5 days. [facility] Blood 02/10/2021 6:39 PM EDT 02/10/2021 7:16 PM EDT Comment:LH Narrative Resulting Agency Comment Spec In Lab Imtiaz Whatley MD MICROBIOLOGY - BLOOD ORDERABLES [facility] [place] [address] * POCT Glucose (02/10/2021 5:29 PM EDT) Glucose, POC 150 65 - 199 mg/dL [facility] Comment: Supplemental ranges: <140 mg/dL before meals <180 mg/dL all other times of the day Blood 02/10/2021 5:29 PM EDT 02/10/2021 5:29 PM EDT Imtiaz Whatley MD POINT OF CARE TEST O RDERAPATRICK [facility] [place] [address] * POCT Glucose (02/10/2021 12:32 PM EDT) Glucose, POC 102 65 - 199 mg/dL [facility] Comment: Supplemental ranges: <140 mg/dL before meals <180 mg/dL all other times of the day Blood 02/10/2021 12:3 2 PM EDT 02/10/2021 12:32 PM EDT Imtiaz Whatley MD POINT OF CARE TEST O TOÑAERAPATRICK Performing Organization Address City/[facility]/ZIP Co de Phone Number [facility] [place] [address] * POCT Glucose (02/10/2021 8:15 AM EDT) Glucose, POC 159 65 - 199 mg/dL [facility] Comment: Supplemental ranges: <140 mg/dL before meals <180 mg/dL all other times of the day Blood 02/10/2021 8:15 AM EDT 02/10/2021 8:15 AM EDT Imtiaz Whatley MD POINT OF CARE TEST O RDERAPATRICK [facility] [place] [address] * Magnesium (02/10/2021 4:17 AM EDT) Magnesium 0.82 0.69 - 1.07 mmol/L [facility] Blood Venous Draw / Unknown 02/10/2021 4:17 AM EDT 02/10/2021 4:29 AM EDT Narrative Resulting Agency Comment Spec In Lab Imtiaz Whatley MD CHEMISTRY ORDERABLES [facility] [place] [address] * (ABNORMAL) Hemogram (02/10/2021 4:17 AM EDT) White Blood Cell 15.0(H) 4.0 - 9.5 x10(3)/mc L [facility] Red Blood Cell 2.93(L) 4.58 - 5.54 x10(6)/mc L [facility] Hemoglobin 9.1(L) 13.7 - 16.5 gm/dL [facility] Hematocrit 26.7(L) 40.5 - 48.5 % [facility] Mean Cell Volume 91.1 82.9 - 93.1 [facility] Mean Cell Hemoglobin 31.1 27.5 - 32.1 pg [facility] Mean Cell Hemoglobin Concentration 34.1 32.0 - 35.7 gm/dL [facility] Platelet 228 145 - 357 x10(3)/mc L [facility] RDW Standard Deviation 45.7(H) 36.0 - 45.0 [facility] RDW coefficient of variation 13.6 11.4 - 13.8 % [facility] Mean Platelet Volume 11.0 7.6 - 12.9 [facility] NRBC% auto 0.0 % [facility] NRBC Absolute 0.000 0.000 - 0.000 x10(3)/ L [facility] Blood 02/10/2021 4:17 AM EDT 02/10/2021 4:25 AM EDT Narrative Resulting Agency Comment Spec In Lab Imtiaz Whatley MD HEMATOLOGY ORDERABLE S [facility] [place] [address] * (ABNORMAL) Hepatic Function Panel (02/10/2021 4:17 AM EDT) [facility] Protein, Total 5.2(L) 6.1 - 8.0 gm/dL [facility] Albumin 2.5(L) 3.2 - 5.2 gm/dL [facility] Aspartate Aminotransferase 21 0 - 39 unit/L [facility] Alanine Aminotransferase 26 0 - 55 unit/L [facility] Alkaline Phosphatase 83 40 - 130 unit/L [facility] Bilirubin, Total 0.5 0.2 - 1.3 mg/dL [facility] Bilirubin, Direct 0.2 0.0 - 0.3 mg/dL [facility] Blood 02/10/2021 4:17 AM EDT 02/10/2021 4:25 AM EDT Narrative Resulting Agency Comment Spec In Lab Imtiaz Whatley MD CHEMISTRY ORDERABLES Performing Organization Address City/State/[facility] Co de Phone Number [facility] [place] [address] * (ABNORMAL) BMP w/fasting Glucose (02/10/2021 4:17 AM EDT) [facility] Glucose Fasting 141(H) 65 - 99 mg/dL [facility] Comment: ?Fasting* Glucose Interpretive Criteria Normal ?65-99 mg/dL Impaired Fasting glucose ?100-125 mg/dL Consistent with Diabetes Mellitus ? >or= 126 mg/dL *Fasting is defined as no caloric intake for at least 8 hours In the absence of unequivocal hyperglycemia a plasma glucose value of >or= 126 mg/dL should be repeated on a subsequent day. Diagnosis and Classification of Diabetes Mellitus, Position Statement from the [place] [employer]. ??Diabetes Care, Volume 33, Supplement 1, Jun 2009 Blood Urea Nitrogen 13 10 - 20 mg/dL [facility] Creatinine 0.79(L) 0.80 - 1.50 mg/dL [facility] Sodium 137 135 - 145 mmol/L [facility] Potassium 3.2(L) 3.5 - 5.0 mmol/L [facility] Comment: Please note: ??Patients with WBC >100,000 may have falsely elevated Potassium levels. ??For accurate Potassium quantification in these patients send serum separator tube (gold top) for subsequent determinations. ??Contact the Clinical Chemistry Laboratory if there are any questions. Chloride 100 98 - 107 mmol/L [facility] Carbon Dioxide 24 22 - 31 mmol/L [facility] Anion Gap 13 5 - 15 mmol/L [facility] Calcium 7.9(L) 8.5 - 10.5 mg/dL [facility] Est Glomerular Filtration Rate 100 >=60 mL/min/1. 73 m?? [facility] Comment: This patient? s estimated glomerular filtration rate (eGFR) is between 100 mL/min/1.73 m2 (patients with less muscle mass per kg body weight) and 116 mL/min/1.73 m2 (patients with more muscle mass [...] and symptoms in addition to eGFR. Blood 02/10/2021 4:17 AM EDT 02/10/2021 4:25 AM EDT Narrative Resulting Agency Comment Spec In Lab Imtiaz Whatley MD CHEMISTRY ORDERABLES [facility] [place] [address] * POCT Glucose (02/09/2021 9:19 PM EDT) Glucose, POC 166 65 - 199 mg/dL [facility] Comment: Supplemental ranges: <140 mg/dL before meals <180 mg/dL all other times of the day Blood 02/09/2021 9:19 PM EDT 02/09/2021 9:19 PM EDT Imtiaz Whatley MD POINT OF CARE TEST O RDELLA [facility] [place] [address] * POCT Glucose (02/09/2021 3:41 PM EDT) Glucose, POC 129 65 - 199 mg/dL [facility] Comment: Supplemental ranges: <140 mg/dL before meals <180 mg/dL all other times of the day Blood 02/09/2021 3:41 PM EDT 02/09/2021 3:41 PM EDT Imtiaz Whatley MD POINT OF CARE TEST O QUYNH Performing Organization Address [facility]/ZIP Co de Phone Number [facility] [place] [address] * POCT Glucose (02/09/2021 12:19 PM EDT) Glucose, POC 126 65 - 199 mg/dL [facility] Comment: Supplemental ranges: <140 mg/dL before meals <180 mg/dL all other times of the day Blood 02/09/2021 12:1 9 PM EDT 02/09/2021 12:19 PM EDT Imtiaz Whatley MD POINT OF CARE TEST O RDERAPATRICK [facility] [place] [address] * POCT Glucose (02/09/2021 8:48 AM EDT) Glucose, POC 166 65 - 199 mg/dL [facility] Comment: Supplemental ranges: <140 mg/dL before meals <180 mg/dL all other times of the day Blood 02/09/2021 8:48 AM EDT 02/09/2021 8:48 AM EDT Imtiaz Whatley MD POINT OF CARE TEST O RDERABLES Performing Organization Address City/[facility]/ZIP Co de Phone Number [facility] [place] [address] * (ABNORMAL) Hepatic Function Panel (02/09/2021 4:40 AM EDT) [facility] Protein, Total 5.1(L) 6.1 - 8.0 gm/dL [facility] Albumin 2.4(L) 3.2 - 5.2 gm/dL [facility] Aspartate Aminotransferase 24 0 - 39 unit/L [facility] Alanine Aminotransferase 34 0 - 55 unit/L [facility] Alkaline Phosphatase 78 40 - 130 unit/L [facility] Bilirubin, Total 0.6 0.2 - 1.3 mg/dL [facility] Bilirubin, Direct 0.2 0.0 - 0.3 mg/dL [facility] Blood 02/09/2021 4:40 AM EDT 02/09/2021 5:10 AM EDT Narrative Resulting Agency Comment Spec In Lab Imtiaz Whatley MD CHEMISTRY ORDERABLES [facility] [place] [address] * (ABNORMAL) Hemogram (02/09/2021 4:40 AM EDT) [facility] White Blood Cell 14.8(H) 4.0 - 9.5 x10(3)/mc L [facility] Red Blood Cell 3.10(L) 4.58 - 5.54 x10(6)/mc L [facility] Hemoglobin 9.5(L) 13.7 - 16.5 gm/dL [facility] Hematocrit 27.9(L) 40.5 - 48.5 % [facility] Mean Cell Volume 90.0 82.9 - 93.1 fL [facility] Mean Cell Hemoglobin 30.6 27.5 - 32.1 pg [facility] Mean Cell Hemoglobin Concentration 34.1 32.0 - 35.7 gm/dL [facility] Platelet 181 145 - 357 x10(3)/mc L [facility] RDW Standard Deviation 44.3 36.0 - 45.0 [facility] RDW coefficient of variation 13.5 11.4 - 13.8 % [facility] Mean Platelet Volume 11.2 7.6 - 12.9 [facility] NRBC% auto 0.0 % [facility] NRBC Absolute 0.000 0.000 - 0.000 x10(3)/mc L [facility] Blood 02/09/2021 4:40 AM EDT 02/09/2021 5:10 AM EDT Narrative Resulting Agency Comment Spec In Lab Imtiaz Whatley MD HEMATOLOGY ORDERABLE S [facility] [place] [address] * (ABNORMAL) BMP w/fasting Glucose (02/09/2021 4:40 AM EDT) Glucose Fasting 179(H) 65 - 99 mg/dL [facility] Comment: ?Fasting* Glucose Interpretive Criteria Normal ?65-99 mg/dL Impaired Fasting glucose ?100-125 mg/dL Consistent with Diabetes Mellitus ? >or= 126 mg/dL *Fasting is defined as no caloric intake for at least 8 hours In the absence of unequivocal hyperglycemia a plasma glucose value of >or= 126 mg/dL should be repeated on a subsequent day. Diagnosis and Classification of Diabetes Mellitus, Position Statement from the [place] [employer]. ??Diabetes Care, Volume 33, Supplement 1, Jun 2009 Blood Urea Nitrogen 11 10 - 20 mg/dL [facility] Creatinine 0.70(L) 0.80 - 1.50 mg/dL [facility] Sodium 136 135 - 145 mmol/L [facility] Potassium 3.2(L) 3.5 - 5.0 mmol/L [facility] Comment: Please note: ??Patients with WBC >100,000 may have falsely elevated Potassium levels. ??For accurate Potassium quantification in these patients send serum separator tube (gold top) for subsequent determinations. ??Contact the Clinical Chemistry Laboratory if there are any questions. Chloride 100 98 - 107 mmol/L [facility] Carbon Dioxide 25 22 - 31 mmol/L [facility] Anion Gap 11 5 - 15 mmol/L [facility] Calcium 7.7(L) 8.5 - 10.5 mg/dL [facility] Est Glomerular Filtration Rate 105 >=60 mL/min/1. 73 m?? [facility] Comment: This patient? s estimated glomerular filtration rate (eGFR) is between 105 mL/min/1.73 m2 (patients with less muscle mass per kg body weight) and 122 mL/min/1.73 m2 (patients with more muscle mass [...] and symptoms in addition to eGFR. Blood 02/09/2021 4:40 AM EDT 02/09/2021 5:10 AM EDT Narrative Resulting Agency Comment Spec In Lab Imtiaz Whatley MD CHEMISTRY ORDERABLES [facility] [place] [address] * XR Chest One View (02/08/2021 11:15 PM EDT) Anatomical Region Laterality Modality Chest N/A Digital Radiogra phy Impressions 02/09/2021 1:00 AM EDT Low lung volume exam with evidence of bibasilar effusion and or airless lung. Thank you for letting us participate in the care of this patient. ??If you are a health care provider and have any questions regarding this report, please contact the number below. ??For patients who have questions please contact the health live in caregiver that requested your imaging first. ? Narrative 02/09/2021 1:00 AM EDT EXAMINATION: XR CHEST ONE VIEW CLINICAL HISTORY: 55 yo M with persistent wheezing and dyspnea TECHNIQUE: 1 view of the chest COMPARISON: 02/06/2021 FINDINGS: Low lung volumes. There is blurring of the hemidiaphragms bilaterally, progressed compared to prior examination. Blunting of the CP angles bilaterally. Cardiac and mediastinal contours are normal. Pulmonary vasculature appears within normal limits for this degree of the lung inflation. Clear appearance of the upper and mid lung zones. Procedure Note Wyatt Mitchell MD - 02/09/2021 EXAMINATION: XR CHEST ONE VIEW CLINICAL HISTORY: 55 yo M with persistent wheezing and dyspnea TECHNIQUE: 1 view of the chest COMPARISON: 02/06/2021 FINDINGS: Low lung volumes. There is blurring of the hemidiaphragms bilaterally, progressed compared to prior examination. Blunting of the CP anglesbilaterally. Cardiac and mediastinal contours are normal. Pulmonary vasculatureappears within normal limits for this degree of the lung inflation. Clearappearance of the upper and mid lung zones. IMPRESSION Low lung volume exam with evidence of bibasilar effusion and or airlesslung. Thank you for letting us participate in the care of this patient. If youare a health care provider and have any questions regarding this report,please contact the number below. For patients who have questions please contactthe health live in caregiver that requested your imaging first. Electronically signed by: Wyatt Mitchell MD, [facility]([phone]), at 02/09/2021 1:00 AM Sin Burnett MD IMG DX ORDERABLES * (ABNORMAL) POCT Glucose (02/08/2021 9:17 PM EDT) Glucose, POC 233(H) 65 - 199 mg/dL [facility] Comment: Supplemental ranges: <140 mg/dL before meals <180 mg/dL all other times of the day Blood 02/08/2021 9:17 PM EDT 02/08/2021 9:17 PM EDT Imtiaz Whatley MD POINT OF CARE TEST O QUYNH Performing Organization Address [facility] Co de Phone Number [facility] [place] [address] * (ABNORMAL) POCT Glucose (02/08/2021 4:18 PM EDT) Glucose, POC 209(H) 65 - 199 mg/dL [facility] Comment: Supplemental ranges: <140 mg/dL before meals <180 mg/dL all other times of the day Blood 02/08/2021 4:18 PM EDT 02/08/2021 4:18 PM EDT Imtiaz Whatley MD POINT OF CARE TEST O RDERABLES Performing Organization Address City/State/[facility] Co de Phone Number [facility] [place] [address] * (ABNORMAL) POCT Glucose (02/08/2021 1:11 PM EDT) Glucose, POC 286(H) 65 - 199 mg/dL [facility] Comment: Supplemental ranges: <140 mg/dL before meals <180 mg/dL all other times of the day Blood 02/08/2021 1:11 PM EDT 02/08/2021 1:11 PM EDT Imtiaz Whtaley MD POINT OF CARE TEST O RDERABLES Performing Organization Address [facility] Co de Phone Number [facility] [place] [address] * (ABNORMAL) BMP w/fasting Glucose (02/08/2021 8:29 AM EDT) Glucose Fasting 199(H) 65 - 99 mg/dL [facility] Comment: ?Fasting* Glucose Interpretive Criteria Normal ?65-99 mg/dL Impaired Fasting glucose ?100-125 mg/dL Consistent with Diabetes Mellitus ? >or= 126 mg/dL *Fasting is defined as no caloric intake for at least 8 hours In the absence of unequivocal hyperglycemia a plasma glucose value of >or= 126 mg/dL should be repeated on a subsequent day. Diagnosis and Classification of Diabetes Mellitus, Position Statement from the [place] [employer]. ??Diabetes Care, Volume 33, Supplement 1, Jun 2009 Blood Urea Nitrogen 8(L) 10 - 20 mg/dL [facility] Creatinine 0.50(L) 0.80 - 1.50 mg/dL [facility] Sodium 137 135 - 145 mmol/L [facility] Potassium 3.6 3.5 - 5.0 mmol/L [facility] Comment: Please note: ??Patients with WBC >100,000 may have falsely elevated Potassium levels. ??For accurate Potassium quantification in these patients send serum separator tube (gold top) for subsequent determinations. ??Contact the Clinical Chemistry Laboratory if there are any questions. Chloride 103 98 - 107 mmol/L [facility] Carbon Dioxide 22 22 - 31 mmol/L [facility] Anion Gap 12 5 - 15 mmol/L [facility] Calcium 7.6(L) 8.5 - 10.5 mg/dL [facility] Est Glomerular Filtration Rate 121 >=60 mL/min/1. 73 m?? [facility] Comment: This patient? s estimated glomerular filtration rate (eGFR) is between 121 mL/min/1.73 m2 (patients with less muscle mass per kg body weight) and 140 mL/min/1.73 m2 (patients with more muscle mass [...] and symptoms in addition to eGFR. Blood 02/08/2021 8:29 AM EDT 02/08/2021 8:34 AM EDT Narrative Resulting Agency Comment Spec In Lab Imtiaz Whatley MD CHEMISTRY ORDERABLES [facility] [place] [address] * (ABNORMAL) Hemogram (02/08/2021 8:29 AM EDT) White Blood Cell 13.4(H) 4.0 - 9.5 x10(3)/mc L [facility] Red Blood Cell 3.48(L) 4.58 - 5.54 x10(6)/mc L [facility] Hemoglobin 10.9(L) 13.7 - 16.5 gm/dL [facility] Hematocrit 31.0(L) 40.5 - 48.5 % [facility] Mean Cell Volume 89.1 82.9 - 93.1 [facility] Mean Cell Hemoglobin 31.3 27.5 - 32.1 pg [facility] Mean Cell Hemoglobin Concentration 35.2 32.0 - 35.7 gm/dL [facility] Platelet 133(L) 145 - 357 x10(3)/mc L [facility] RDW Standard Deviation 44.9 36.0 - 45.0 [facility] RDW coefficient of variation 13.7 11.4 - 13.8 % [facility] Mean Platelet Volume 11.8 7.6 - 12.9 [facility] LAB[facility]ORY NRBC% auto 0.0 % [facility] NRBC Absolute 0.000 0.000 - 0.000 x10(3)/mc L [facility] Blood 02/08/2021 8:29 AM EDT 02/08/2021 8:34 AM EDT Narrative Resulting Agency Comment Spec In Lab Imtiaz Whatley MD HEMATOLOGY ORDERABLE S [facility] [place] [address] * (ABNORMAL) POCT Glucose (02/08/2021 7:40 AM EDT) Glucose, POC 200(H) 65 - 199 mg/dL [facility] Comment: Supplemental ranges: <140 mg/dL before meals <180 mg/dL all other times of the day Blood 02/08/2021 7:40 AM EDT 02/08/2021 7:40 AM EDT Ja Tanner MD POINT OF CARE TEST O RDERABLES [facility] [place] [address] * CT Abdomen & Pelvis w Contrast (02/07/2021 11:22 PM EDT) Anatomical Region Laterality Modality Abdomen, Pelvis Computed Tomogra phy 02/07/2021 11:4 4 PM EDT Impressions 02/08/2021 10:43 AM EDT 1. ??Necrotizing pancreatitis. 2. ??Interval necrosis of pancreatic segments as described in the body the report without ductal dilation concerning for duct disruption. 3. ??Progression of peripancreatic edema and inflammatory stranding and ascites. 4. ??Cholesterol stones evident in the gallbladder. Thank you for letting us participate in the care of this patient. ??If you are a health care provider and have any questions regarding this report, please contact the number below. ??For patients who have questions please contact the health live in caregiver that requested your imaging first. ? Electronically signed by: Deepika Ramsey MD, [facility] ([phone]), at 02/08/2021 10:43 AM Narrative 02/08/2021 10:43 AM EDT EXAMINATION: CT ABDOMEN AND PELVIS W CONTRAST CLINICAL HISTORY: Abdominal pain, acute, nonlocalized - Include more detail below intractable pain with acute pancreatitis - lipase has recovered pain still intractable. TECHNIQUE: Helical CT of the abdomen and pelvis was performed following the intravenous administration of contrast. Administered 120.0 ml of OMNIPAQUE 350.00 mg/ml. Oral contrast was administered. COMPARISON: February 02, 2021 FINDINGS: Lower chest: New bibasilar segmental atelectasis and trace dependent pleural effusions. Liver: Fatty infiltration. No focal lesion. Bile ducts: Nondilated. Gallbladder: Cholesterol stones evident. Secondary pericholecystic edema. Pancreas: New absent enhancement through the head neck junction to the proximal tail. No central nor peripheral ductal dilation. Enhancement persists in the central head, uncinate process and peripheral tail. Progression of peripancreatic edema, retroperitoneal edema and stranding extends the anterior pararenal fascia, pancreatico duodenal cleft, lesser sac and about the greater curvature to the left subphrenic region. No peripherally enhancing collections. Spleen: Normal. Adrenals: Indeterminate 7 mm right adrenal nodule. Stable nodular contour and mild thickening left adrenal gland. Kidneys: Symmetric nephrograms without collecting system dilation Urinary Bladder: No calculi Vasculature: Normal caliber abdominal aorta. Patent renal and hepatic veins. Patent right left and main portal veins. Patent superior mesenteric and splenic veins. Patent celiac artery and branches without pseudoaneurysm. Lymph Nodes: Small peripancreatic and mildly enlarged portacaval lymph nodes. Bowel: Secondary inflammatory changes extend to the transverse colon and splenic flecture. Secondary thickening of the first and second segments of duodenum and pylorus Peritoneum and mesentery: Small volume ascites. No free air. Abdominal wall: Mild edema. No muscular asymmetry. Reproductive organs: Normal prostate contour Osseous structures: No suspicious lesions. No acute fractures. Procedure Note Deepika Ramsey MD - 02/08/2021 EXAMINATION: CT ABDOMEN AND PELVIS W CONTRAST CLINICAL HISTORY: Abdominal pain, acute, nonlocalized - Include moredetail below intractable pain with acute pancreatitis - lipase has recovered painstill intractable. TECHNIQUE: Helical CT of the abdomen and pelvis was performed followingthe intravenous administration of contrast. Administered 120.0 ml ofOMNIPAQUE 350.00 mg/ml. Oral contrast was administered. COMPARISON: February 02, 2021 FINDINGS: Lower chest: New bibasilar segmental atelectasis and trace dependentpleural effusions. Liver: Fatty infiltration. No focal lesion. Bile ducts: Nondilated. Gallbladder: Cholesterol stones evident. Secondary pericholecysticedema. Pancreas: New absent enhancement through the head neck junction to theproximal tail. No central nor peripheral ductal dilation. Enhancement persists inthe central head, uncinate process and peripheral tail. Progression of peripancreatic edema, retroperitoneal edema and stranding extends theanterior pararenal fascia, pancreatico duodenal cleft, lesser sac and about thegreater curvature to the left subphrenic region. No peripherally enhancingcollections. Spleen: Normal. Adrenals: Indeterminate 7 mm right adrenal nodule. Stable nodular contourand mild thickening left adrenal gland. Kidneys: Symmetric nephrograms without collecting system dilation Urinary Bladder: No calculi Vasculature: Normal caliber abdominal aorta. Patent renal and hepaticveins. Patent right left and main portal veins. Patent superior mesenteric andsplenic veins. Patent celiac artery and branches without pseudoaneurysm. Lymph Nodes: Small peripancreatic and mildly enlarged portacaval lymphnodes. Bowel: Secondary inflammatory changes extend to the transverse colon andsplenic flecture. Secondary thickening of the first and second segments ofduodenum and pylorus Peritoneum and mesentery: Small volume ascites. No free air. Abdominal wall: Mild edema. No muscular asymmetry. Reproductive organs: Normal prostate contour Osseous structures: No suspicious lesions. No acute fractures. IMPRESSION 1. Necrotizing pancreatitis. 2. Interval necrosis of pancreatic segments as described in the body thereport without ductal dilation concerning for duct disruption. 3. Progression of peripancreatic edema and inflammatory stranding andascites. 4. Cholesterol stones evident in the gallbladder. Thank you for letting us participate in the care of this patient. If youare a health care provider and have any questions regarding this report,please contact the number below. For patients who have questions please contactthe health live in caregiver that requested your imaging first. Ja Tanner MD IMG CT ORDERABLES * (ABNORMAL) POCT Glucose (02/07/2021 9:50 PM EDT) Glucose, POC 227(H) 65 - 199 mg/dL [facility] Comment: Supplemental ranges: <140 mg/dL before meals <180 mg/dL all other times of the day Blood 02/07/2021 9:50 PM EDT 02/07/2021 9:50 PM EDT Ja Tanner MD POINT OF CARE TEST O RDERABLES [facility] [place] [address] * (ABNORMAL) POCT Glucose (02/07/2021 8:40 PM EDT) Glucose, POC 222(H) 65 - 199 mg/dL [facility] Comment: Supplemental ranges: <140 mg/dL before meals <180 mg/dL all other times of the day Blood 02/07/2021 8:40 PM EDT 02/07/2021 8:40 PM EDT Ja Tanner MD POINT OF CARE TEST O RDERAPATRICK [facility] [place] [address] * (ABNORMAL) POCT Glucose (02/07/2021 6:30 PM EDT) Glucose, POC 222(H) 65 - 199 mg/dL [facility] Comment: Supplemental ranges: <140 mg/dL before meals <180 mg/dL all other times of the day Blood 02/07/2021 6:30 PM EDT 02/07/2021 6:30 PM EDT Ja Tanner MD POINT OF CARE TEST O RDERAPATRICK Performing Organization Address City/[facility]/ZIP Co de Phone Number [facility] [place] [address] * (ABNORMAL) POCT Glucose (02/07/2021 4:11 PM EDT) Glucose, POC 314(H) 65 - 199 mg/dL [facility] Comment: Supplemental ranges: <140 mg/dL before meals <180 mg/dL all other times of the day Blood 02/07/2021 4:11 PM EDT 02/07/2021 4:11 PM EDT Ja Tanner MD POINT OF CARE TEST O RDERABLES [facility] [place] [address] * (ABNORMAL) Differential, Automated (02/07/2021 1:57 PM EDT) Pathologist [facility] Neutrophil % 82.0 % [facility] Neutrophil Absolute 11.25(H) 1.70 - 6.10 x10(3)/ L [facility] Lymph % 5.5 % [facility] Lymphocytes Abs 0.8(L) 0.9 - 3.2 x10(3)/ L [facility] Monocyte % 7.4 % [facility] Monocyte Abs 1.0(H) 0.3 - 0.9 x10(3)/[facility] Eos % 2.3 % [facility] Eosinophils Abs 0.3 0.0 - 0.4 x10(3)/[facility] Basophil % 0.3 % [facility] Baso Absolute 0.0 0.0 - 0.1 x10(3)/[facility] Immature Gran % 2.50 % [facility] Comment: Immature granulocytes(IG's)percentage and absolute count will include metamyelocytes, myelocytes, and promyelocytes. Blood smears from CBCs yielding IG's will be scanned manually for concordance. If this scan disagrees with the automated IG or if promyelocytes are noted, a manual differential will be performed. Immature Gran Absolute 0.34(H) 0.00 - 0.04 x10(3)/ L [facility] Blood 02/07/2021 1:57 PM EDT 02/07/2021 2:06 PM EDT Narrative Resulting Agency Comment Spec In Lab Ja Tanner MD HEMATOLOGY ORDERABLE S [facility] [place] [address] * (ABNORMAL) Hemogram (02/07/2021 1:57 PM EDT) Pathologist [facility] White Blood Cell 13.7(H) 4.0 - 9.5 x10(3)/[facility] Red Blood Cell 3.65(L) 4.58 - 5.54 x10(6)/ L [facility] Hemoglobin 11.4(L) 13.7 - 16.5 gm/dL [facility] Hematocrit 32.5(L) 40.5 - 48.5 % [facility] Mean Cell Volume 89.0 82.9 - 93.1 fL [facility] Mean Cell Hemoglobin 31.2 27.5 - 32.1 pg [facility] Mean Cell Hemoglobin Concentration 35.1 32.0 - 35.7 gm/dL [facility] Platelet 154 145 - 357 x10(3)/[facility] RDW Standard Deviation 44.0 36.0 - 45.0 [facility] RDW coefficient of variation 13.4 11.4 - 13.8 % [facility] Mean Platelet Volume 11.1 7.6 - 12.9 [facility] NRBC% auto 0.0 % [facility] NRBC Absolute 0.000 0.000 - 0.000 x10(3)/[facility] Blood 02/07/2021 1:57 PM EDT 02/07/2021 2:06 PM EDT Narrative Resulting Agency Comment Spec In Lab Ja Tanner MD HEMATOLOGY ORDERABLE S [facility] [place] [address] * (ABNORMAL) Phosphorus (02/07/2021 1:57 PM EDT) Phosphorus 2.3(L) 2.5 - 4.5 mg/dL [facility] Blood 02/07/2021 1:57 PM EDT 02/07/2021 2:06 PM EDT Narrative Resulting Agency Comment Spec In Lab Ja Tanner MD CHEMISTRY ORDERABLES [facility] [place] [address] * Magnesium (02/07/2021 1:57 PM EDT) Pathologist [facility] Magnesium 0.75 0.69 - 1.07 mmol/L [facility] Blood 02/07/2021 1:57 PM EDT 02/07/2021 2:06 PM EDT Narrative Resulting Agency Comment Spec In Lab Ja Tanner MD CHEMISTRY ORDERABLES Performing Organization Address [facility]/ZIP Co de Phone Number [facility] [place] [address] * (ABNORMAL) Comprehensive metabolic panel (non-fasting) (02/07/2021 1:57 PM EDT) Pathologist [facility] Glucose 278(H) 65 - 199 mg/dL [facility] Comment:Diabetes: >=200 mg/d L plus symptoms Blood Urea Nitrogen 10 10 - 20 mg/dL [facility] Creatinine 0.61(L) 0.80 - 1.50 mg/dL [facility] Sodium 137 135 - 145 mmol/L [facility] Potassium 3.3(L) 3.5 - 5.0 mmol/L [facility] Comment: Please note: ??Patients with WBC >100,000 may have falsely elevated Potassium levels. ??For accurate Potassium quantification in these patients send serum separator tube (gold top) for subsequent determinations. ??Contact the Clinical Chemistry Laboratory if there are any questions. Chloride 102 98 - 107 mmol/L [facility] Carbon Dioxide 23 22 - 31 mmol/L [facility] Anion Gap 12 5 - 15 mmol/L [facility] Calcium 7.9(L) 8.5 - 10.5 mg/dL [facility] Protein, Total 5.7(L) 6.1 - 8.0 gm/dL [facility] Albumin 2.9(L) 3.2 - 5.2 gm/dL [facility] Aspartate Aminotransferase 36 0 - 39 unit/L [facility] Alanine Aminotransferase 41 0 - 55 unit/L [facility] Alkaline Phosphatase 88 40 - 130 unit/L [facility] Bilirubin, Total 0.9 0.2 - 1.3 mg/dL [facility] Est Glomerular Filtration Rate 112 >=60 mL/min/1. 73 m?? [facility] Comment: This patient? s estimated glomerular filtration rate (eGFR) is between 112 mL/min/1.73 m2 (patients with less muscle mass per kg body weight) and 129 mL/min/1.73 m2 (patients with more muscle mass [...] and symptoms in addition to eGFR. Blood 02/07/2021 1:57 PM EDT 02/07/2021 2:06 PM EDT Narrative Resulting Agency Comment Spec In Lab Ja Tanner MD CHEMISTRY ORDERABLES [facility] [place] [address] * (ABNORMAL) Lipase (02/07/2021 1:57 PM EDT) Lipase 91(H) 0 - 60 unit/L [facility] Comment:result rechecked-ium m Blood 02/07/2021 1:57 PM EDT 02/07/2021 2:06 PM EDT Narrative Resulting Agency Comment Spec In Lab Ja Tanner MD CHEMISTRY ORDERABLES [facility] [place] [address] * (ABNORMAL) POCT Glucose (02/07/2021 11:27 AM EDT) Glucose, POC 250(H) 65 - 199 mg/dL [facility] Comment: Supplemental ranges: <140 mg/dL before meals <180 mg/dL all other times of the day Blood 02/07/2021 11:2 7 AM EDT 02/07/2021 11:27 AM EDT Ja Tanner MD POINT OF CARE TEST O QUYNH Performing Organization Address [facility]/ZIP Co de Phone Number [facility] [place] [address] * (ABNORMAL) POCT Glucose (02/07/2021 7:50 AM EDT) Glucose, POC 230(H) 65 - 199 mg/dL [facility] Comment: Supplemental ranges: <140 mg/dL before meals <180 mg/dL all other times of the day Blood 02/07/2021 7:50 AM EDT 02/07/2021 7:50 AM EDT Ja Tanner MD POINT OF CARE TEST O QUYNH Performing Organization Address City/[facility]/ZIP Co de Phone Number [facility] [place] [address] * XR Chest PA & Lateral (Generic) (02/06/2021 9:10 PM EDT) Anatomical Region Laterality Modality Chest N/A Digital Radiogra phy Impressions 02/07/2021 8:05 AM EDT Improved bibasilar atelectasis. Very small pleural effusions. Thank you for letting us participate in the care of this patient. ??If you are a health care provider and have any questions regarding this report, please contact the number below. ??For patients who have questions please contact the health live in caregiver that requested your imaging first. ? Electronically signed by: Daisy Larsen MD, [facility] ([phone]), at 02/07/2021 8:05 AM Narrative 02/07/2021 8:05 AM EDT EXAMINATION: XR CHEST PA AND LATERAL (GENERIC) CLINICAL HISTORY: increased tachypnea, SOB TECHNIQUE: AP and lateral views of the chest. COMPARISON: 02/04/2021. FINDINGS: Image blurring on the lateral view, consistent with respiratory motion. Endotracheal and nasogastric tubes have been removed. Stable mild relative elevation of the right hemidiaphragm. Slightly improved bibasilar atelectasis. Very small pleural effusions by the posterior costophrenic angles. No pneumothorax seen. Unchanged cardiomediastinal silhouette and vascular markings. No interval osseous findings. Procedure Note Daisy Larsen MD - 02/07/2021 EXAMINATION: XR CHEST PA AND LATERAL (GENERIC) CLINICAL HISTORY: increased tachypnea, SOB TECHNIQUE: AP and lateral views of the chest. COMPARISON: 02/04/2021. FINDINGS: Image blurring on the lateral view, consistent withrespiratory motion. Endotracheal and nasogastric tubes have been removed. Stablemild relative elevation of the right hemidiaphragm. Slightly improvedbibasilar atelectasis. Very small pleural effusions by the posterior costophrenicangles. No pneumothorax seen. Unchanged cardiomediastinal silhouette andvascular markings. No interval osseous findings. IMPRESSION Improved bibasilar atelectasis. Very small pleural effusions. Thank you for letting us participate in the care of this patient. If youare a health care provider and have any questions regarding this report,please contact the number below. For patients who have questions please contactthe health live in caregiver that requested your imaging first. Ja Tanner MD IMG DX ORDERABLES * (ABNORMAL) POCT Glucose (02/06/2021 8:25 PM EDT) Glucose, POC 245(H) 65 - 199 mg/dL [facility] Comment: Supplemental ranges: <140 mg/dL before meals <180 mg/dL all other times of the day Blood 02/06/2021 8:25 PM EDT 02/06/2021 8:25 PM EDT Ja Tanner MD POINT OF CARE TEST O RDERABLES Performing Organization Address [facility] Co de Phone Number [facility] [place] [address] * (ABNORMAL) POCT Glucose (02/06/2021 4:45 PM EDT) Glucose, POC 240(H) 65 - 199 mg/dL [facility] Comment: Supplemental ranges: <140 mg/dL before meals <180 mg/dL all other times of the day Blood 02/06/2021 4:45 PM EDT 02/06/2021 4:45 PM EDT Ja Tanner MD POINT OF CARE TEST O RDERAPATRICK Performing Organization Address City/[facility]/ZIP Co de Phone Number [facility] [place] [address] * (ABNORMAL) POCT Glucose (02/06/2021 10:55 AM EDT) Glucose, POC 211(H) 65 - 199 mg/dL [facility] Comment: Supplemental ranges: <140 mg/dL before meals <180 mg/dL all other times of the day Blood 02/06/2021 10:5 5 AM EDT 02/06/2021 10:55 AM EDT Ja Tanner MD POINT OF CARE TEST O RDERABLES [facility] [place] [address] * POCT Glucose (02/06/2021 8:08 AM EDT) Glucose, POC 197 65 - 199 mg/dL [facility] Comment: Supplemental ranges: <140 mg/dL before meals <180 mg/dL all other times of the day Blood 02/06/2021 8:08 AM EDT 02/06/2021 8:08 AM EDT Ja Tanner MD POINT OF CARE TEST O RDERABLES Performing Organization Address City/[facility]/ZIP Co de Phone Number [facility] [place] [address] * (ABNORMAL) Differential, Automated (02/06/2021 3:26 AM EDT) Neutrophil % 87.9 % [facility] Neutrophil Absolute 14.49(H) 1.70 - 6.10 x10(3)/mc L [facility] Lymph % 4.5 % [facility] Lymphocytes Abs 0.8(L) 0.9 - 3.2 x10(3)/mc L [facility] Monocyte % 5.8 % [facility] Monocyte Abs 1.0(H) 0.3 - 0.9 x10(3)/mc L [facility] Eos % 0.8 % [facility] Eosinophils Abs 0.1 0.0 - 0.4 x10(3)/mc L [facility] Basophil % 0.3 % [facility] Baso Absolute 0.0 0.0 - 0.1 x10(3)/mc L [facility] Immature Gran % 0.70 % [facility] Comment: Immature granulocytes(IG's)percentage and absolute count will include metamyelocytes, myelocytes, and promyelocytes. Blood smears from CBCs yielding IG's will be scanned manually for concordance. If this scan disagrees with the automated IG or if promyelocytes are noted, a manual differential will be performed. Immature Gran Absolute 0.12(H) 0.00 - 0.04 x10(3)/mc L [facility] Blood 02/06/2021 3:26 AM EDT 02/06/2021 3:39 AM EDT Narrative Resulting Agency Comment Spec In Lab Ja Tanner MD HEMATOLOGY ORDERABLE S [facility] [place] [address] * (ABNORMAL) Hemogram (02/06/2021 3:26 AM EDT) White Blood Cell 16.5(H) 4.0 - 9.5 x10(3)/mc L [facility] Red Blood Cell 3.59(L) 4.58 - 5.54 x10(6)/mc L [facility] Hemoglobin 11.2(L) 13.7 - 16.5 gm/dL [facility] Hematocrit 32.7(L) 40.5 - 48.5 % [facility] Mean Cell Volume 91.1 82.9 - 93.1 fL [facility] Mean Cell Hemoglobin 31.2 27.5 - 32.1 pg [facility] Mean Cell Hemoglobin Concentration 34.3 32.0 - 35.7 gm/dL [facility] Platelet 140(L) 145 - 357 x10(3)/mc L [facility] RDW Standard Deviation 45.1(H) 36.0 - 45.0 [facility] RDW coefficient of variation 13.4 11.4 - 13.8 % [facility] Mean Platelet Volume 11.1 7.6 - 12.9 [facility] NRBC% auto 0.0 % [facility] NRBC Absolute 0.000 0.000 - 0.000 x10(3)/mc L [facility] Blood 02/06/2021 3:26 AM EDT 02/06/2021 3:39 AM EDT Narrative Resulting Agency Comment Spec In Lab Ja Tanner MD HEMATOLOGY ORDERABLE S [facility] [place] [address] * (ABNORMAL) Comprehensive metabolic panel (non-fasting) (02/06/2021 3:26 AM EDT) Glucose 225(H) 65 - 199 mg/dL [facility] Comment:Diabetes: >=200 mg/d L plus symptoms Blood Urea Nitrogen 12 10 - 20 mg/dL [facility] Creatinine 0.66(L) 0.80 - 1.50 mg/dL [facility] Sodium 137 135 - 145 mmol/L [facility] Potassium 3.5 3.5 - 5.0 mmol/L [facility] Comment: Please note: ??Patients with WBC >100,000 may have falsely elevated Potassium levels. ??For accurate Potassium quantification in these patients send serum separator tube (gold top) for subsequent determinations. ??Contact the Clinical Chemistry Laboratory if there are any questions. Chloride 103 98 - 107 mmol/L [facility] Carbon Dioxide 20(L) 22 - 31 mmol/L [facility] Anion Gap 14 5 - 15 mmol/L [facility] Calcium 7.8(L) 8.5 - 10.5 mg/dL [facility] Protein, Total 6.0(L) 6.1 - 8.0 gm/dL [facility] Albumin 3.0(L) 3.2 - 5.2 gm/dL [facility] Aspartate Aminotransferase 39 0 - 39 unit/L [facility] Alanine Aminotransferase 44 0 - 55 unit/L [facility] Alkaline Phosphatase 76 40 - 130 unit/L [facility] Bilirubin, Total 1.4(H) 0.2 - 1.3 mg/dL [facility] Est Glomerular Filtration Rate 108 >=60 mL/min/1. 73 m?? [facility] Comment: This patient? s estimated glomerular filtration rate (eGFR) is between 108 mL/min/1.73 m2 (patients with less muscle mass per kg body weight) and 125 mL/min/1.73 m2 (patients with more muscle mass [...] and symptoms in addition to eGFR. Blood 02/06/2021 3:26 AM EDT 02/06/2021 3:38 AM EDT Narrative Resulting Agency Comment Spec In Lab Ja Tanner MD CHEMISTRY ORDERABLES [facility] [place] [address] * POCT Glucose (02/05/2021 8:50 PM EDT) Glucose, POC 167 65 - 199 mg/dL [facility] Comment: Supplemental ranges: <140 mg/dL before meals <180 mg/dL all other times of the day Blood 02/05/2021 8:50 PM EDT 02/05/2021 8:50 PM EDT Ja Tanner MD POINT OF CARE TEST O RDERABLES [facility] [place] [address] * Troponin (02/05/2021 4:55 PM EDT) Troponin-T <0.01 0.00 - 0.00 ng/mL [facility] Comment: The 99th percentile for Troponin T is less than 0.01 ng/mL, any detectable cTnT concentration using this assay should be considered elevated. According to the third universal definition of myocardial infarction the following criteria with a clinical presentation consistent with acute myocardial ischemia meets the diagnosis for a myocardial infarction (ID). Detection of a rise and/or fall of cTnT, with at least one value greater than the 99th percentile (> or = 0.01) and with at least one of the following ?? Symptoms of ischemia ?? New or presumed new significant [id number] wave (ST-T) changes or new left bundle branch block (LBBB) ?? Development of pathologic Q waves in the ECG ?? Imaging evidence of new loss of viable myocardium or new regional wall motion abnormality ?? Identification of an intracoronary thrombus by angiography or autopsy Samples for cTnT testing should be obtained serially upon first assessment and again 3 to 6 hours later. If the clinical suspicion is high and previous samples have been negative an additional sample may be indicated. Reference: Third [place] Definition of Myocardial Infarction. Journal of the [place] [employer] 2012;60:1581-98 Blood 02/05/2021 4:55 PM EDT 02/05/2021 5:07 PM EDT Narrative Resulting Agency Comment Spec In Lab Wilebrt Mcfadden MD CHEMISTRY ORDERABLES [facility] [place] [address] * EKG 12 Lead (02/05/2021 4:49 PM EDT) Ventricular rate 118 BPM MUSE SYSTEM Atrial Rate 118 BPM MUSE SYSTEM P-R Interval 124 ms MUSE SYSTEM QRS Duration 84 ms MUSE SYSTEM Q-T Interval 330 ms MUSE SYSTEM QTC Calculated (Bezet) 462 ms MUSE SYSTEM Calculated P Letts 26 degrees MUSE SYSTEM Calculated R Letts -20 degrees MUSE SYSTEM Calculated T Letts 50 degrees MUSE SYSTEM INTERPRETATION Sinus tachycardia with Premature atrial complexes with Aberrant conduction Abnormal ECG When compared with ECG of 04-FEB-2021 12:42, Aberrant conduction is now Present Confirmed by MD Kermit, Gary ([id number]) on 02/06/2021 2:56:26 PM MUSE SYSTEM 02/05/2021 4:49 PM EDT 02/06/2021 2:56 PM EDT Wilbert Mcfadden MD ECG ORDERABLES MUSE SYSTEM * POCT Glucose (02/05/2021 4:12 PM EDT) Glucose, POC 156 65 - 199 mg/dL [facility] Comment: Supplemental ranges: <140 mg/dL before meals <180 mg/dL all other times of the day Blood 02/05/2021 4:12 PM EDT 02/05/2021 4:12 PM EDT Wilbert Mcfadden MD POINT OF CARE TEST O RDERABLES Performing Organization Address [facility] [facility] Co de Phone Number [facility] [place] [address] * POCT Glucose (02/05/2021 11:43 AM EDT) Glucose, POC 195 65 - 199 mg/dL [facility] Comment: Supplemental ranges: <140 mg/dL before meals <180 mg/dL all other times of the day Blood 02/05/2021 11:4 3 AM EDT 02/05/2021 11:43 AM EDT Wilbert Mcfadden MD POINT OF CARE TEST O RDERABLES Performing Organization Address [facility] Co de Phone Number [facility] [place] [address] * POCT Glucose (02/05/2021 8:14 AM EDT) Glucose, POC 180 65 - 199 mg/dL [facility] Comment: Supplemental ranges: <140 mg/dL before meals <180 mg/dL all other times of the day Blood 02/05/2021 8:14 AM EDT 02/05/2021 8:14 AM EDT Wilbert Mcfadden MD POINT OF CARE TEST O RDERABLES Performing Organization Address City/[facility]/ZIP Co de Phone Number [facility] [place] [address] * (ABNORMAL) Lipase (02/05/2021 2:30 AM EDT) Pathologist [facility] Lipase 541(H) 0 - 60 unit/L [facility] Blood Venous Draw / Unknown 02/05/2021 2:30 AM EDT 02/05/2021 2:47 AM EDT Narrative Resulting Agency Comment Spec In Lab Giancarlo Aviles MD CHEMISTRY ORDERABLES Performing Organization Address [facility] Co de Phone Number [facility] [place] [address] * (ABNORMAL) Differential, Automated (02/05/2021 2:30 AM EDT) [facility] Neutrophil % 86.7 % [facility] Neutrophil Absolute 14.82(H) 1.70 - 6.10 x10(3)/mc L [facility] Lymph % 6.3 % [facility] Lymphocytes Abs 1.1 0.9 - 3.2 x10(3)/mc L [facility] Monocyte % 6.0 % [facility] Monocyte Abs 1.0(H) 0.3 - 0.9 x10(3)/mc L [facility] Eos % 0.1 % [facility] Eosinophils Abs 0.0 0.0 - 0.4 x10(3)/mc L [facility] Basophil % 0.2 % [facility] Baso Absolute 0.0 0.0 - 0.1 x10(3)/mc L [facility] Immature Gran % 0.70 % [facility] Comment: Immature granulocytes(IG's)percentage and absolute count will include metamyelocytes, myelocytes, and promyelocytes. Blood smears from CBCs yielding IG's will be scanned manually for concordance. If this scan disagrees with the automated IG or if promyelocytes are noted, a manual differential will be performed. Immature Gran Absolute 0.12(H) 0.00 - 0.04 x10(3)/mc L [facility] Blood 02/05/2021 2:30 AM EDT 02/05/2021 2:46 AM EDT Narrative Resulting Agency Comment Spec In Lab Von Frank MD HEMATOLOGY ORDERABLE S [facility] [place] [address] * (ABNORMAL) Hemogram (02/05/2021 2:30 AM EDT) White Blood Cell 17.1(H) 4.0 - 9.5 x10(3)/mc L [facility] Red Blood Cell 3.78(L) 4.58 - 5.54 x10(6)/mc L [facility] Hemoglobin 11.8(L) 13.7 - 16.5 gm/dL [facility] Hematocrit 35.4(L) 40.5 - 48.5 % [facility] Mean Cell Volume 93.7(H) 82.9 - 93.1 fL [facility] Mean Cell Hemoglobin 31.2 27.5 - 32.1 pg [facility] Mean Cell Hemoglobin Concentration 33.3 32.0 - 35.7 gm/dL [facility] Platelet 110(L) 145 - 357 x10(3)/mc L [facility] RDW Standard Deviation 48.5(H) 36.0 - 45.0 fL [facility] RDW coefficient of variation 14.2(H) 11.4 - 13.8 % [facility] Mean Platelet Volume 11.2 7.6 - 12.9 fL [facility] NRBC% auto 0.0 % [facility] NRBC Absolute 0.000 0.000 - 0.000 x10(3)/mc L [facility] Blood 02/05/2021 2:30 AM EDT 02/05/2021 2:46 AM EDT Narrative Resulting Agency Comment Spec In Lab Von Frank MD HEMATOLOGY ORDERABLE S [facility] [place] [address] * (ABNORMAL) Comprehensive metabolic panel (non-fasting) (02/05/2021 2:30 AM EDT) Glucose 146 65 - 199 mg/dL [facility] Comment:Diabetes: >=200 mg/d L plus symptoms Blood Urea Nitrogen 25(H) 10 - 20 mg/dL [facility] Creatinine 0.97 0.80 - 1.50 mg/dL [facility] Sodium 143 135 - 145 mmol/L [facility] Potassium 3.9 3.5 - 5.0 mmol/L [facility] Comment: Please note: ??Patients with WBC >100,000 may have falsely elevated Potassium levels. ??For accurate Potassium quantification in these patients send serum separator tube (gold top) for subsequent determinations. ??Contact the Clinical Chemistry Laboratory if there are any questions. Chloride 109(H) 98 - 107 mmol/L [facility] Carbon Dioxide 25 22 - 31 mmol/L [facility] Anion Gap 9 5 - 15 mmol/L [facility] Calcium 7.6(L) 8.5 - 10.5 mg/dL [facility] Protein, Total 5.7(L) 6.1 - 8.0 gm/dL [facility] Albumin 2.9(L) 3.2 - 5.2 gm/dL [facility] Aspartate Aminotransferase 48(H) 0 - 39 unit/L [facility] Alanine Aminotransferase 53 0 - 55 unit/L [facility] Alkaline Phosphatase 63 40 - 130 unit/L [facility] Bilirubin, Total 1.3 0.2 - 1.3 mg/dL [facility] Est Glomerular Filtration Rate 87 >=60 mL/min/1. 73 m?? [facility] Comment: This patient? s estimated glomerular filtration rate (eGFR) is between 87 mL/min/1.73 m2 (patients with less muscle mass per kg body weight) and 101 mL/min/1.73 m2 (patients with more muscle mass [...] and symptoms in addition to eGFR. Blood 02/05/2021 2:30 AM EDT 02/05/2021 2:46 AM EDT Narrative Resulting Agency Comment Spec In Lab Ja Tanner MD CHEMISTRY ORDERABLES [facility] [place] [address] * POCT Glucose (02/04/2021 9:09 PM EDT) Glucose, POC 150 65 - 199 mg/dL [facility] Comment: Supplemental ranges: <140 mg/dL before meals <180 mg/dL all other times of the day Blood 02/04/2021 9:09 PM EDT 02/04/2021 9:09 PM EDT Wilbert Mcfadden MD POINT OF CARE TEST O RDERABLES [facility] [place] [address] * POCT Glucose (02/04/2021 6:14 PM EDT) Glucose, POC 160 65 - 199 mg/dL [facility] Comment: Supplemental ranges: <140 mg/dL before meals <180 mg/dL all other times of the day Blood 02/04/2021 6:14 PM EDT 02/04/2021 6:14 PM EDT Wilbert Mcfadden MD POINT OF CARE TEST O RDERABLES [facility] [place] [address] * (ABNORMAL) Urinalysis without microscopic (02/04/2021 1:03 PM EDT) Glucose, Urine Dipstick Negative Negative mg/dL [facility] Protein, Urine Dipstick 30(A) Negative mg/dL [facility] Bilirubin, Urine Dipstick Small(A) Negative mg/dL [facility] Comment: Clinical correlation required for positive Urine Bilirubin results as false positive may occur with some drugs and drug related products. If a false positive is suspected a serum total bilirubin should be considered if clinically indicated. Urobilinogen, Urine Dipstick Normal Normal mg/dL [facility] pH, Urn (dipstick) 5.5 5.0 - 8.0 [facility] Blood, Urine Dipstick Moderate(A) Negative mg/dL [facility] Ketone, Urine Dipstick Trace(A) Negative mg/dL [facility] Nitrite, Urine Dipstick Negative Negative [facility] Leukocytes, Urine Dipstick Negative Negative [facility] Appearance, Urine Dipstick Clear Clear [facility] Specific Wesley Urine Automated >=1.030(A) 1.006 - 1.030 [facility] Color, Urine Dipstick Irwin(A) [facility] Urine Urine / Unknown 02/04/2021 1 :03 PM EDT 02/04/2021 2:30 PM EDT Narrative Resulting Agency Comment Spec In Lab Yenong Frank MD URINE ORDERABLES [facility] [place] [address] * Urine Hold (02/04/2021 1:02 PM EDT) Hold, Urine Sample in lab. [facility] Urine Urine / Unknown 02/04/2021 1 :02 PM EDT 02/04/2021 1:34 PM EDT Von Frank MD URINE ORDERABLES Performing Organization Address [facility]/ZIP Co de Phone Number [facility] [place] [address] * (ABNORMAL) Urinalysis without microscopic (02/04/2021 1:02 PM EDT) Glucose, Urine Dipstick See Note Negative [facility] Comment:Unable to perform ch emistry testing due to interfering substances. Protein, Urine Dipstick See Note Negative [facility] Comment:Unable to perform ch emistry testing due to interfering substances. Bilirubin, Urine Dipstick See Note Negative [facility] Comment: Clinical correlation required for positive Urine Bilirubin results as false positive may occur with some drugs and drug related products. If a false positive is suspected a serum total bilirubin should be considered if clinically indicated. Unable to perform chemistry testing due to interfering substances. Urobilinogen, Urine Dipstick See Note Normal [facility] Comment:Unable to perform ch emistry testing due to interfering substances. pH, Urn (dipstick) See Note 5.0 - 8.0 [facility] Comment:Unable to perform ch emistry testing due to interfering substances. Blood, Urine Dipstick See Note Negative [facility] Comment:Unable to perform ch emistry testing due to interfering substances. Ketone, Urine Dipstick See Note Negative [facility] Comment:Unable to perform ch emistry testing due to interfering substances. Nitrite, Urine Dipstick See Note Negative [facility] Comment:Unable to perform ch emistry testing due to interfering substances. Leukocytes, Urine Dipstick See Note Negative [facility] Comment:Unable to perform ch emistry testing due to interfering substances. Appearance, Urine Dipstick Clear Clear [facility] Comment:Unable to perform ch emistry testing due to interfering substances. Specific Wesley Urine Automated See Note 1.005 - 1.030 [facility] Comment: Unable to perform chemistry testing due to interfering substances. Corrected from >=1.030 [ABN] on 02/04/21 13:59:27 EDT by Abilio Baer Color, Urine Dipstick Irwin(A) [facility] Comment:Unable to perform ch emistry testing due to interfering substances. Urine 02/04/2021 1:02 PM EDT 02/04/2021 1:33 PM EDT Narrative Resulting Agency Comment Spec In Lab Wilbert Mcfadden MD URINE ORDERABLES Performing Organization Address City/State/[facility] Co de Phone Number [facility] [place] [address] * (ABNORMAL) BLOOD GAS 2 ARTERIAL (02/04/2021 1:00 PM EDT) pH, Arterial 7.41 7.35 - 7.45 [facility] PCO2, Arterial 33(L) 35 - 45 mmHg [facility] PO2, Arterial 94 85 - 104 mmHg [facility] Bicarbonate, Arterial 20.1 20.0 - 26.0 mmol/L [facility] Base Excess, Arterial -4.6(L) -3.0 - 3.0 mmol/L [facility] Hgb Blood Gas 13.7 13.7 - 16.5 gm/dL [facility] Oxyhemoglobin, Arterial 95.6 94.0 - 97.0 % [facility] Carboxyhemoglob in, Arterial 0.6 % [facility] Comment: Nonsmokers: 0.5-1.5% COHB Smokers: Variable, but usually less than 10% Toxic: 20-30% COHB Lethal: Greater than 60% COHB Methemoglobin, Arterial 0.6 <=1.5 % [facility] Na Whole Blood 136 135 - 145 mmol/L [facility] K Whole Blood 4.4 3.5 - 5.0 mmol/L [facility] Comment: Please note: Patients with WBC >100,000 may have falsely elevated Potassium levels. Contact the Clinical Chemistry Laboratory if there are any questions. ICa Whole Blood 1.07(L) 1.15 - 1.33 mmol/L [facility] Comment: Note: ??Total bilirubin higher than 20 mg/dL may lead to falsely low ionized calcium. CL Whole Blood 109(H) 98 - 107 mmol/L [facility] Gluc Whole Bld 166 65 - 199 mg/dL [facility] Comment:Diabetes: >=200 mg/d L plus symptoms. Lactate WB 1.3 0.5 - 2.2 mmol/L [facility] FIO2 Art 45 % [facility] PF Ratio Art 209 [facility] Blood 02/04/2021 1:00 PM EDT 02/04/2021 1:00 PM EDT Wilbert Mcfadden MD POINT OF CARE TEST O RDERABLES Performing Organization Address City/[facility] Co de Phone Number [facility] [place] [address] * Blood culture (02/04/2021 12:57 PM EDT) Blood Culture No growth at 5 days. [facility] Blood 02/04/2021 12:5 7 PM EDT 02/04/2021 1:32 PM EDT Comment:LUE Narrative Resulting Agency Comment Spec In Lab Wilbert Mcfadden MD MICROBIOLOGY - BLOOD ORDERABLES Performing Organization Address [facility] Co de Phone Number [facility] [place] [address] * XR Abdomen 1 view (Generic) (02/04/2021 12:51 PM EDT) Anatomical Region Laterality Modality Abdomen N/A Digital Radiogra phy Impressions 02/04/2021 2:31 PM EDT FINDINGS/IMPRESSION: The enteric tube which appears over the region of the stomach on chest radiograph dated 02/04/2021 at 12:34 hours is not seen on this exam obtained 2 minutes later. ??If the enteric tube was not manipulated between these 2 studies it is likely that the [id number] of this study does not include the enteric tube positioned in the upper abdomen. If the enteric tube was manipulated then it's position is unknown. Stool in the ascending colon and cecum. I have personally reviewed the image(s) and the resident's interpretation and agree with the findings, Ruslan Quintanilla MD at 02/04/2021 2:31 PM Thank you for letting us participate in the care of this patient. ??If you are a health care provider and have any questions regarding this report, please contact the number below. ??For patients who have questions please contact the health live in caregiver that requested your imaging first. ? Electronically signed by: Ruslan Quintanilla MD, [facility] ([phone]), at 02/04/2021 2:31 PM Narrative 02/04/2021 2:31 PM EDT EXAMINATION: XR ABDOMEN 1 VIEW (GENERIC) CLINICAL HISTORY: NGT placement TECHNIQUE: 2 supine AP portable radiographs of the abdomen for purposes of verifying NG tube placement. COMPARISON: CT of the abdomen with contrast dated 05/20/2017 Chest radiograph dated 02/04/2021 at 12:30 0426 hours Procedure Note Ruslan Quintanilla MD - 02/04/2021 EXAMINATION: XR ABDOMEN 1 VIEW (GENERIC) CLINICAL HISTORY: NGT placement TECHNIQUE: 2 supine AP portable radiographs of the abdomen for purposes of verifyingNG tube placement. COMPARISON: CT of the abdomen with contrast dated 05/20/2017 Chest radiograph dated 02/04/2021 at 12:30 0426 hours IMPRESSION FINDINGS/IMPRESSION: The enteric tube which appears over the region of the stomach on chest radiograph dated 02/04/2021 at 12:34 hours is not seen on this examobtained 2 minutes later. If the enteric tube was not manipulated between these 2studies it is likely that the [id number] of this study does not include theenteric tube positioned in the upper abdomen. If the enteric tube was manipulatedthen it's position is unknown. Stool in the ascending colon and cecum. I have personally reviewed the image(s) and the resident's interpretationand agree with the findings, Ruslan Quintanilla MD at 02/04/2021 2:31 PM Thank you for letting us participate in the care of this patient. If youare a health care provider and have any questions regarding this report,please contact the number below. For patients who have questions please contactthe health live in caregiver that requested your imaging first. Electronically signed by: Ruslan Quintanilla MD, [facility]([phone]), at 02/04/2021 2:31 PM Wilbert Mcfadden MD IMG DX ORDERABLES * XR Chest One View (02/04/2021 12:51 PM EDT) Anatomical Region Laterality Modality Chest N/A Digital Radiogra phy Impressions 02/04/2021 1:19 PM EDT New endotracheal tube placement since the previous study, tip approximately 7 cm above the fide. Nasogastric tube, tip in stomach No other interval change. Hypoinflation. LEFT basilar focal atelectasis and/or pneumonia. Thank you for letting us participate in the care of this patient. ??If you are a health care provider and have any questions regarding this report, please contact the number below. ??For patients who have questions please contact the health live in caregiver that requested your imaging first. ? Electronically signed by: Aniket Medina MD, [facility] ([phone]), at 02/04/2021 1:19 PM Narrative 02/04/2021 1:19 PM EDT EXAMINATION: XR CHEST ONE VIEW CLINICAL HISTORY: intubated at OSH TECHNIQUE: 1 view of the chest COMPARISON: 02/04/2021, earlier today FINDINGS: New endotracheal tube placement since the previous study, tip approximately 7 cm above the fide. Nasogastric tube, tip in stomach No other interval change. Hypoinflation. LEFT basilar focal atelectasis and/or pneumonia. Procedure Note Aniket Medina MD - 02/04/2021 EXAMINATION: XR CHEST ONE VIEW CLINICAL HISTORY: intubated at OSH TECHNIQUE: 1 view of the chest COMPARISON: 02/04/2021, earlier today FINDINGS: New endotracheal tube placement since the previous study, tipapproximately 7 cm above the fide. Nasogastric tube, tip in stomach No other interval change. Hypoinflation. LEFT basilar focal atelectasis and/or pneumonia. IMPRESSION New endotracheal tube placement since the previous study, tipapproximately 7 cm above the fide. Nasogastric tube, tip in stomach No other interval change. Hypoinflation. LEFT basilar focal atelectasis and/or pneumonia. Thank you for letting us participate in the care of this patient. If youare a health care provider and have any questions regarding this report,please contact the number below. For patients who have questions please contactthe health live in caregiver that requested your imaging first. Electronically signed by: Aniket Medina MD, [facility]([phone]), at 02/04/2021 1:19 PM Wilbert Mcfadden MD IMG DX ORDERABLES * EKG 12 Lead (02/04/2021 12:42 PM EDT) Ventricular rate 104 BPM MUSE SYSTEM Atrial Rate 104 BPM MUSE SYSTEM P-R Interval 120 ms MUSE SYSTEM QRS Duration 82 ms MUSE SYSTEM Q-T Interval 336 ms MUSE SYSTEM QTC Calculated (Bezet) 441 ms MUSE SYSTEM Calculated P Letts 13 degrees MUSE SYSTEM Calculated R Letts -9 degrees MUSE SYSTEM Calculated T Letts 69 degrees MUSE SYSTEM INTERPRETATION Sinus tachycardia Otherwise normal ECG No previous ECGs available Confirmed by MD Keven, Nahid Zarate ([id number]) on 02/04/2021 1:48:04 PM MUSE SYSTEM 02/04/2021 12:4 2 PM EDT 02/04/2021 1:48 PM EDT Wilbert Mcfadden MD ECG ORDERABLES Performing Organization Address City/[facility]/ZIP Co de Phone Number MUSE SYSTEM * Blood culture (02/04/2021 12:30 PM EDT) Pathologist [facility] Blood Culture No growth at 5 days. [facility] Blood 02/04/2021 12:3 0 PM EDT 02/04/2021 12:50 PM EDT Comment:no site Narrative Resulting Agency Comment Spec In Lab Wilbert Mcfadden MD MICROBIOLOGY - BLOOD ORDERABLES Performing Organization Address [facility]/ZIP Co de Phone Number [facility] [place] [address] * Type and Screen Validity (02/04/2021 12:16 PM EDT) T&S only valid at [facility] LABORATORY Comment:This Type and Screen result is only valid at the [facility] Blood 02/04/2021 12:1 6 PM EDT 02/04/2021 12:23 PM EDT Narrative Resulting Agency Comment Spec In Lab Von Frank MD BLOOD BANK LAB ORDER DANII Performing Organization Address City/[facility]/ZIP Co de Phone Number [facility] [place] [address] * ABORH Recheck Status (02/04/2021 12:16 PM EDT) ABORH Type Recheck Completed [facility] Blood 02/04/2021 12:1 6 PM EDT 02/04/2021 12:23 PM EDT Narrative Resulting Agency Comment Spec In Lab Von Frank MD BLOOD BANK LAB ORDER DANII [facility] [place] [address] * Antibody screen (02/04/2021 12:16 PM EDT) [facility] Ab Screen Interp Negative [facility] Expires at [id number] on: 02/07/2021 [facility] Blood 02/04/2021 12:1 6 PM EDT 02/04/2021 12:23 PM EDT Narrative Resulting Agency Comment Spec In Lab Von Frank MD BLOOD BANK LAB ORDER DANII [facility] [place] [address] * ABO/Rh Typing (02/04/2021 12:16 PM EDT) ABORH Type O Pos [facility] Blood 02/04/2021 12:1 6 PM EDT 02/04/2021 12:23 PM EDT Narrative Resulting Agency Comment Spec In Lab Von Frank MD BLOOD BANK LAB ORDER DANII [facility] [place] [address] * (ABNORMAL) Differential, Automated (02/04/2021 12:10 PM EDT) Neutrophil % 87.8 % [facility] Neutrophil Absolute 17.94(H) 1.70 - 6.10 x10(3)/ L [facility] Lymph % 5.9 % [facility] Lymphocytes Abs 1.2 0.9 - 3.2 x10(3)/[facility] LABORATORY Monocyte % 5.2 % [facility] Monocyte Abs 1.1(H) 0.3 - 0.9 x10(3)/[facility] LABORATORY Eos % 0.0 % [facility] Eosinophils Abs 0.0 0.0 - 0.4 x10(3)/[facility] LABORATORY Basophil % 0.3 % [facility] Baso Absolute 0.1 0.0 - 0.1 x10(3)/[facility] LABORATORY Immature Gran % 0.80 % [facility] Comment: Immature granulocytes(IG's)percentage and absolute count will include metamyelocytes, myelocytes, and promyelocytes. Blood smears from CBCs yielding IG's will be scanned manually for concordance. If this scan disagrees with the automated IG or if promyelocytes are noted, a manual differential will be performed. Immature Gran Absolute 0.16(H) 0.00 - 0.04 x10(3)/[facility] LABORATORY Blood 02/04/2021 12:1 0 PM EDT 02/04/2021 2:54 PM EDT Narrative Resulting Agency Comment Spec In Lab Von Frank MD HEMATOLOGY ORDERABLE S [facility] [place] [address] * (ABNORMAL) Hemogram (02/04/2021 12:10 PM EDT) White Blood Cell 20.4(H) 4.0 - 9.5 x10(3)/[facility] LABORATORY Red Blood Cell 4.10(L) 4.58 - 5.54 x10(6)/[facility]ATORY Hemoglobin 13.0(L) 13.7 - 16.5 gm/dL [facility] Hematocrit 39.1(L) 40.5 - 48.5 % [facility] Mean Cell Volume 95.4(H) 82.9 - 93.1 fL [facility] Mean Cell Hemoglobin 31.7 27.5 - 32.1 pg [facility] Mean Cell Hemoglobin Concentration 33.2 32.0 - 35.7 gm/dL [facility] Platelet 134(L) 145 - 357 x10(3)/mc L [facility] RDW Standard Deviation 50.4(H) 36.0 - 45.0 fL [facility] RDW coefficient of variation 14.4(H) 11.4 - 13.8 % [facility] Mean Platelet Volume 11.6 7.6 - 12.9 [facility] LABORATORY NRBC% auto 0.0 % [facility] LABORATORY NRBC Absolute 0.000 0.000 - 0.000 x10(3)/mc L [facility] Blood 02/04/2021 12:1 0 PM EDT 02/04/2021 2:54 PM EDT Narrative Resulting Agency Comment Spec In Lab Von Frank MD HEMATOLOGY ORDERABLE S Performing Organization Address City/[facility]/ZIP Co de Phone Number [facility] [place] [address] * (ABNORMAL) Lipase (02/04/2021 12:10 PM EDT) Lipase 974(H) 0 - 60 unit/L [facility] Blood 02/04/2021 12:1 0 PM EDT 02/04/2021 2:54 PM EDT Narrative Resulting Agency Comment Spec In Lab Wilbert Mcfadden MD CHEMISTRY ORDERABLES Performing Organization Address City/[facility]/ZIP Co de Phone Number [facility] [place] [address] * (ABNORMAL) CMP w/fasting Glucose (02/04/2021 12:10 PM EDT) [facility] Signature Glucose Fasting 145(H) 65 - 99 mg/dL [facility] Comment: ?Fasting* Glucose Interpretive Criteria Normal ?65-99 mg/dL Impaired Fasting glucose ?100-125 mg/dL Consistent with Diabetes Mellitus ? >or= 126 mg/dL *Fasting is defined as no caloric intake for at least 8 hours In the absence of unequivocal hyperglycemia a plasma glucose value of >or= 126 mg/dL should be repeated on a subsequent day. Diagnosis and Classification of Diabetes Mellitus, Position Statement from the [place] [employer]. ??Diabetes Care, Volume 33, Supplement 1, Jun 2009 Blood Urea Nitrogen 29(H) 10 - 20 mg/dL [facility] Creatinine 1.25 0.80 - 1.50 mg/dL [facility] Sodium 141 135 - 145 mmol/L [facility] Potassium 4.3 3.5 - 5.0 mmol/L [facility] Comment: Please note: ??Patients with WBC >100,000 may have falsely elevated Potassium levels. ??For accurate Potassium quantification in these patients send serum separator tube (gold top) for subsequent determinations. ??Contact the Clinical Chemistry Laboratory if there are any questions. Chloride 107 98 - 107 mmol/L [facility] Carbon Dioxide 22 22 - 31 mmol/L [facility] Anion Gap 12 5 - 15 mmol/L [facility] Calcium 7.7(L) 8.5 - 10.5 mg/dL [facility] Protein, Total 5.6(L) 6.1 - 8.0 gm/dL [facility] Albumin 2.9(L) 3.2 - 5.2 gm/dL [facility] Aspartate Aminotransferase Not Perf 0 - 39 [facility] Comment:Called by: jonah, Read back by: kobi lerma, Date/Time:02/04/21 15:43. Alanine Aminotransferase 66(H) 0 - 55 unit/L [facility] Alkaline Phosphatase 61 40 - 130 unit/L [facility] Bilirubin, Total 0.9 0.2 - 1.3 mg/dL [facility] Est Glomerular Filtration Rate 64 >=60 mL/min/1. 73 m?? [facility] Comment: This patient? s estimated glomerular filtration rate (eGFR) is between 64 mL/min/1.73 m2 (patients with less muscle mass per kg body weight) and 74 mL/min/1.73 m2 (patients with more muscle mass [...] and symptoms in addition to eGFR. Blood 02/04/2021 12:1 0 PM EDT 02/04/2021 2:54 PM EDT Narrative Resulting Agency Comment Spec In Lab Wilbert Mcfadden MD CHEMISTRY ORDERABLES Performing Organization Address City/[facility]/ZIP Co de Phone Number [facility] [place] [address] * Phosphorus (02/04/2021 12:10 PM EDT) Phosphorus 3.3 2.5 - 4.5 mg/dL [facility] Blood 02/04/2021 12:1 0 PM EDT 02/04/2021 2:54 PM EDT Narrative Resulting Agency Comment Spec In Lab Wilbert Mcfadden MD CHEMISTRY ORDERABLES Performing Organization Address City/[facility]/ZIP Co de Phone Number [facility] [place] [address] * Magnesium (02/04/2021 12:10 PM EDT) Magnesium 0.80 0.69 - 1.07 mmol/L [facility] Blood 02/04/2021 12:1 0 PM EDT 02/04/2021 2:54 PM EDT Narrative Resulting Agency Comment Spec In Lab Wilbert Mcfadden MD CHEMISTRY ORDERABLES Performing Organization Address [facility] de Phone Number [facility] [place] [address] * APTT (02/04/2021 12:10 PM EDT) Partial Thromboplastin Time 26 25 - 37 sec [facility] Comment: The PTT is NOT appropriate for heparin monitoring. Use the Anti-Xa level for heparin monitoring (HEP UFH) or LMWH monitoring (HEP LMW). A PTT less than 37 seconds generally indicates adequate hemostasis. Blood 02/04/2021 12:1 0 PM EDT 02/04/2021 2:54 PM EDT Narrative Resulting Agency Comment Spec In Lab Wilbert Mcfadden MD HEMATOLOGY ORDERABLE S Performing Organization Address [facility] de Phone Number [facility] [place] [address] * Prothrombin Time (02/04/2021 12:10 PM EDT) Prothrombin Time 12.2 9.4 - 12.5 sec [facility] International Normalization Ratio 1.1 [facility] Comment: An INR <2.0 indicates adequate procoagulant activity for hemostasis in most patients without underlying bleeding disorders, though the INR may not adequately reflect hemostatic capacity in patients with liver disease and synthetic impairment. The recommended target INR range for therapeutic anticoagulation is 2.0 ? 3.0 for most applications, though lower and higher ranges may be appropriate depending on clinical circumstances. Blood 02/04/2021 12:1 0 PM EDT 02/04/2021 2:54 PM EDT Narrative Resulting Agency Comment Spec In Lab Wilbert Mcfadden MD HEMATOLOGY ORDERABLE S Performing Organization Address City/[facility]/ZIP Co de Phone Number [facility] [place] [address] * POCT Glucose (02/04/2021 12:04 PM EDT) Glucose, POC 143 65 - 199 mg/dL [facility] Comment: Supplemental ranges: <140 mg/dL before meals <180 mg/dL all other times of the day Blood 02/04/2021 12:0 4 PM EDT 02/04/2021 12:04 PM EDT Wilbert Mcfadden MD POINT OF CARE TEST O RDERABLES Performing Organization Address City/[facility]/ZIP Co de Phone Number [facility] [place] [address] documented in this encounter Visit Diagnoses Diagnosis Hypokalemia Hypopotassemia Chest pain, unspecified type Gallstone pancreatitis Acute pancreatitis Gallstone pancreatitis Acute pancreatitis Diabetes mellitus diagnosed at age 49 (A1c 6.8% in Jun 2015) Type II or unspecified type diabetes mellitus without mention of complication, not stated as uncontrolled Hypertension Unspecified essential hypertension Insulin resistance (high c-peptide 8.2 on 08/12/18 and low HDL 34) Dysmetabolic Syndrome X Acute respiratory failure Obesity Obesity, unspecified Hypokalemia Hypopotassemia GRICELDA (acute kidney injury) Acute kidney failure, unspecified Hypertensive crisis Unspecified essential hypertension documented in this encounter Admitting Diagnoses Diagnosis Gallstone pancreatitis Acute pancreatitis documented in this encounter Administered Medications Inactive Administered Medications - up to 3 most recent administrations Medication Order MAR Action Action Date Dose Rate Site acetaminophen (Tylenol) tablet 650 mg 650 mg, Oral, EVERY 6 HOURS PRN, Starting on Wed02/04/21 at 2018, Until 02/08/21 at 0940, Pain, Fever, Maximum dose of acetaminophen is 4000 mg from all sources in 24 hours. When ordered for pain, acetaminophen should be given even when other ordered pain medications are indicated. , Routine Given 02/07/2021 9:31 PM EDT 650 mg Given 02/07/2021 6:24 AM EDT 650 mg Given 02/06/2021 11:13 PM EDT 650 mg acetaminophen (Tylenol) tablet 975 mg 975 mg, Oral, EVERY 8 HOURS, First dose on 02/08/21 at 1030, Until Discontinued, Maximum dose of acetaminophen is 4000 mg from all sources in 24 hours. When ordered for pain, acetaminophen should be given even when other ordered pain medications are indicated. , Routine Given 02/16/2021 10:23 AM EDT 975 mg Given 02/16/2021 2:36 AM EDT 975 mg Given 02/15/2021 5:37 PM EDT 975 mg albuteroL (Proventil) nebulizer solution 2.5 mg 2.5 mg, Nebulization, EVERY 6 HOURS PRN, Starting on 02/08/21 at 2015, Until 02/16/21 at 1307, Wheezing, Shortness of Breath, Routine Given 02/08/2021 9:38 PM EDT 2.5 mg amLODIPine (Norvasc) tablet 10 mg 10 mg, Oral, DAILY, First dose (after last modification) on Wed02/07/21 at 0730, Until Discontinued, Routine Given 02/10/2021 8:34 AM EDT 10 mg Given 02/09/2021 8:56 AM EDT 10 mg Given 02/08/2021 9:56 AM EDT 10 mg amLODIPine (Norvasc) tablet 5 mg 5 mg, Oral, DAILY, First dose on Wed02/05/21 at 0900, Until Discontinued, Routine Given 02/06/2021 8:18 AM EDT 5 mg Given 02/05/2021 8:18 AM EDT 5 mg amLODIPine (Norvasc) tablet 5 mg 5 mg, Oral, DAILY, First dose (after last modification) on Wed02/11/21 at 0900, Until Discontinued, Routine Given 02/16/2021 8:15 AM EDT 5 mg Given 02/15/2021 9:52 AM EDT 5 mg Given 02/14/2021 8:27 AM EDT 5 mg amoxicillin-clavulanate (Augmentin) 875-125 mg per tablet 1 tablet 1 tablet, Oral, 2 TIMES DAILY, First dose on Wed02/06/21 at 2100, Until Discontinued, Routine, Indication for (Active or Suspected): GI/Intra-abdominal Given 02/08/2021 9:55 AM EDT 1 tablet Given 02/07/2021 9:28 PM EDT 1 tablet Given 02/07/2021 8:06 AM EDT 1 tablet aspirin chewable tablet 81 mg 81 mg, Oral, DAILY, First dose on Wed02/05/21 at 1045, Until Discontinued, Routine Given 02/16/2021 8:15 AM EDT 81 mg Given 02/15/2021 9:52 AM EDT 81 mg Given 02/14/2021 8:27 AM EDT 81 mg bisacodyL (Dulcolax) suppository 10 mg 10 mg, Rectal, DAILY, First dose on Wed02/12/21 at 1000, Until Discontinued, Please give by lunchtime on 02/12 if he hasn't had a bowel movement by then, Routine Given 02/16/2021 8:15 AM EDT 10 mg Given 02/15/2021 12:07 PM EDT 10 mg Given 02/14/2021 9:49 AM EDT 10 mg cyclobenzaprine (Flexeril) tablet 10 mg 10 mg, Oral, 3 TIMES DAILY PRN, Starting on Vicky 02/06/21 at 1026, Until 02/16/21 at 1307, Muscle spasms, Routine Given 02/09/2021 9:01 PM EDT 10 mg Given 02/09/2021 5:29 AM EDT 10 mg Given 02/07/2021 9:28 PM EDT 10 mg dexmedetomidine (Precedex) (4 mcg/mL) in sodium chloride 0.9% 100 mL infusion 0-1.7 mcg/kg/hr ? 110.7 kg (0-47.0475 mL/hr, rounded to 0-47 mL/hr), Intravenous, CONTINUOUS, Starting on Wed02/04/21 at 1400, Until Wed02/05/21 at 0949, Titrate to sedation level of RASS Goal (-)1 to 0 . Start at 0.4 mcg/kg/hr, adjust by 0.4 mcg/kg/hr every 15 minutes. Once stable, reassess patient every 30 minutes. Rate not to exceed 1.7 mcg/kg/hr. Change rate only after assessing and documenting RASS. Reassess sedation scores within 30 minutes after every rate change. If under sedated, increase rate by 0.4 mcg/kg/hr. If over sedated, hold sedative until target RASS (-)1 to 0 achieved and then restart at 50% of previous rate. Call laborer beam house if goal not achieved at maximum rate. If SAT is ordered and if patient meets criteria for Spontaneous Awakening Trial, titrate per protocol., Routine, Please indicate the name & specialty of the Attending Provider who authorized the use of this medication: Dr. Mcfadden ([facility]) Rate/Dose Change 02/04/2021 3:45 PM EDT 1 mcg/kg/hr 27.7 mL/hr Rate/Dose Change 02/04/2021 2:00 PM EDT 0.8 mcg/kg/hr 22.1 mL/hr New Bag 02/04/2021 1:35 PM EDT 0.4 mcg/kg/hr 11.1 mL/hr dextrose 5% and lactated ringers infusion 100 mL/hr, Intravenous, CONTINUOUS, Starting on 02/08/21 at 1030, Until 02/08/21 at 2257 New Bag 02/08/2021 9:46 PM EDT 100 mL/hr 100 mL/hr New Bag 02/08/2021 10:05 AM EDT 100 mL/hr 100 mL/hr dextrose 5% and lactated ringers infusion 100 mL/hr, Intravenous, CONTINUOUS, Starting on 02/11/21 at 1000, Until 02/11/21 at 1325 New Bag 02/11/2021 9:25 AM EDT 100 mL/hr 100 mL/hr enoxaparin (Lovenox) (40 mg/0.4 mL) subcutaneous injection 40 mg 40 mg, Subcutaneous, NIGHTLY, First dose on 02/08/21 at 2100, Until Discontinued, Routine Given 02/15/2021 9:29 PM EDT 40 mg Given 02/14/2021 8:25 PM EDT 40 mg Given 02/13/2021 8:41 PM EDT 40 mg fentaNYL (PF) (50 mcg/mL) injection 25 mcg 25 mcg, Intravenous, EVERY 1 HOUR PRN, Starting on 02/04/21 at 1429, Until 02/04/21 at 1725, Pain, If medication ordered subcutaneously, do not administer more than 2 mL as a single injection., Routine Given 02/04/2021 3:47 PM EDT 50 mcg heparin (porcine) (5,000 units/1 mL) subcutaneous injection 5,000 Units 5,000 Units, Subcutaneous, EVERY 8 HOURS SCHEDULED, First dose on Wed02/04/21 at 1400, Until Discontinued, Routine Given 02/08/2021 1:05 PM EDT 5,000 Unit s Given 02/08/2021 6:14 AM EDT 5,000 Units Given 02/07/2021 9:28 PM EDT 5,000 Units hydrALAZINE (Apresoline) (20 mg/mL) injection 5 mg 5 mg, Intravenous, EVERY 6 HOURS PRN, Starting on Wed02/06/21 at 0835, Until Wed02/06/21 at 2139, High Blood Pressure, SBP >180, Routine Given 02/06/2021 6:50 PM EDT 5 mg Given 02/06/2021 8:47 AM EDT 5 mg HYDROmorphone (Dilaudid) (0.5 mg/0.5 mL) injection syringe 0.2 mg 0.2 mg, Intravenous, EVERY 4 HOURS PRN, Starting on Wed02/04/21 at 1726, Until Wed02/06/21 at 1238, Pain, Use if pain not improved on oral dilaudid, Can use for breakthrough pain on oral dilaudid, Routine Given 02/05/2021 6:18 PM E DT 0.2 mg Given 02/05/2021 1:14 PM EDT 0.2 mg Given 02/05/2021 9:09 AM EDT 0.2 mg HYDROmorphone (Dilaudid) (0.5 mg/0.5 mL) injection syringe 0.2 mg 0.2 mg, Intravenous, ONCE, 1 dose, On Wed02/04/21 at 2045, Routine Given 02/04/2021 8:20 PM EDT 0.2 mg HYDROmorphone (Dilaudid) (0.5 mg/0.5 mL) injection syringe 0.2 mg 0.2 mg, Intravenous, ONCE, 1 dose, On Wed02/05/21 at 1430, STAT Given 02/05/2021 1:46 PM EDT 0.2 mg HYDROmorphone (Dilaudid) (0.5 mg/0.5 mL) injection syringe 0.2 mg 0.2 mg, Intravenous, EVERY 2 HOURS PRN, Starting on Vicky 02/06/21 at 1245, Until Vicky 02/06/21 at 1338, Pain, Use if pain not improved on oral dilaudid, Can use for breakthrough pain on oral dilaudid, Routine Given 02/06/2021 12:55 PM EDT 0.2 mg HYDROmorphone (Dilaudid) (0.5 mg/0.5 mL) injection syringe 0.4 mg 0.4 mg, Intravenous, EVERY 2 HOURS PRN, Starting on Vicky 02/06/21 at 1338, Until 02/07/21 at 0940, Pain, Use if pain not improved on oral dilaudid, Can use for breakthrough pain on oral dilaudid, Routine Given 02/07/2021 9:02 AM E DT 0.4 mg Given 02/07/2021 6:41 AM EDT 0.4 mg Given 02/07/2021 2:14 AM EDT 0.4 mg HYDROmorphone (Dilaudid) (2 mg/mL) injection solution 0.6 mg 0.6 mg, Intravenous, ONCE, 1 dose, On Wed02/07/21 at 1030, STAT Given 02/07/2021 9:50 AM EDT 0.6 mg HYDROmorphone (Dilaudid) (2 mg/mL) injection solution 0.6 mg 0.6 mg, Intravenous, EVERY 2 HOURS PRN, Starting on Wed02/07/21 at 0940, Until 02/08/21 at 0940, Pain, Use if pain not improved on oral dilaudid, Can use for breakthrough pain on oral dilaudid, Routine Given 02/08/2021 7:46 AM E DT 0.6 mg Given 02/08/2021 5:25 AM EDT 0.6 mg Given 02/08/2021 3:00 AM EDT 0.6 mg HYDROmorphone (Dilaudid) (2 mg/mL) injection solution 0.8 mg 0.8 mg, Intravenous, EVERY 3 HOURS PRN, Starting on 02/08/21 at 0947, Until Wed02/09/21 at 0938, Pain, Routine Given 02/09/2021 8:51 AM EDT 0.8 mg Given 02/09/2021 5:44 AM EDT 0.8 mg Given 02/09/2021 2:36 AM EDT 0.8 mg HYDROmorphone (Dilaudid) (2 mg/mL) injection solution 0.8 mg 0.8 mg, Intravenous, ONCE, 1 dose, On Wed02/09/21 at 1415, Routine Given 02/09/2021 1:39 PM EDT 0.8 mg HYDROmorphone (Dilaudid) tablet 2 mg 2 mg, Oral, EVERY 4 HOURS PRN, Starting on Wed02/04/21 at 1725, Until Wed02/05/21 at 1036, Pain, for mild pain (1-3), May give an additional 2 mg once if pain not relieved in 30-60 minutes., Routine Given 02/05/2021 12:07 AM EDT 2 mg Given 02/04/2021 6:29 PM EDT 2 mg HYDROmorphone (Dilaudid) tablet 2 mg 2 mg, Oral, ONCE, 1 dose, On Wed02/07/21 at 0230, Routine Given 02/07/2021 1:49 AM EDT 2 mg HYDROmorphone (Dilaudid) tablet 6 mg 6 mg, Oral, EVERY 4 HOURS PRN, Starting on Wed02/04/21 at 1725, Until Wed02/05/21 at 1036, Pain, for severe pain (7-10), May give an additional 2 mg once if pain not relieved in 30-60 minutes., Routine Given 02/05/2021 4:16 AM EDT 6 mg Given 02/04/2021 10:40 PM EDT 6 mg ibuprofen (Advil) tablet 600 mg 600 mg, Oral, EVERY 8 HOURS PRN, Starting on 02/08/21 at 0932, Until Wed02/11/21 at 0907, Pain, Administer orally with milk or food to minimize GI irritation. Maximum dose of 3,200 mg from all sources in 24 hours, Routine Given 02/11/2021 7:37 AM EDT 600 mg Given 02/10/2021 11:06 PM EDT 600 mg Given 02/10/2021 2:46 PM EDT 600 mg ibuprofen (Advil) tablet 600 mg 600 mg, Oral, EVERY 8 HOURS, First dose on Wed02/13/21 at 1045, Until Discontinued, Administer orally with milk or food to minimize GI irritation. Maximum dose of 3,200 mg from all sources in 24 hours, Routine Given 02/16/2021 6:41 AM EDT 600 mg Given 02/15/2021 9:35 PM EDT 600 mg Given 02/15/2021 2:43 PM EDT 600 mg ibuprofen (Motrin) tablet 800 mg 800 mg, Oral, EVERY 6 HOURS PRN, Starting on Wed02/06/21 at 1810, Until Wed02/06/21 at 2155, Pain, Administer orally with milk or food to minimize GI irritation. Maximum dose of 3,200 mg from all sources in 24 hours, Routine Given 02/06/2021 6:31 PM EDT 800 mg insulin glargine (Lantus) (100 unit/mL) subcutaneous injection vial 15 Units 15 Units, Subcutaneous, NIGHTLY, First dose on Wed02/08/21 at 2100, Until Discontinued, Routine Given 02/15/2021 9:29 PM EDT 15 Units Given 02/14/2021 8:35 PM EDT 15 Units Given 02/13/2021 8:47 PM EDT 15 Units insulin lispro (HumaLOG;Admelog) (100 unit/mL) subcutaneous injection vial 0-8 Units 0-8 Units, Subcutaneous, 3 TIMES DAILY WITH MEALS, First dose on Wed02/11/21 at 1815, Until Discontinued, [employer] Give 1 unit for every 10 grams carbohydrate. Hold if not eating or if BG less than 70 mg/dL., Routine Given 02/16/2021 8:25 AM EDT 6 Units Given 02/15/2021 5:38 PM EDT 6 Units Given 02/15/2021 12:00 PM EDT 5 Units insulin lispro (HumaLOG;Admelog) (100 unit/mL) subcutaneous injection vial 1-5 Units 1-5 Units, Subcutaneous, 3 TIMES DAILY BEFORE MEALS, First dose on Wed02/04/21 at 1745, Until Discontinued, CORRECTION BOLUS [1-4 Units] Sensitive Sliding Scale (BG in mg/dL): Correction factor 40 (1 unit of insulin is expected to drop the glucose 40 mg/dL) BG 160 - 200 Give 1 unit BG 201 - 240 Give 2 units BG 241 - 280 Give 3 units BG greater than 280, give 4 units and recheck BG in 2 hours. - If recheck BG is LESS than 280, give no insulin and resume schedule - If recheck BG is GREATER than 280, give 4 units and repeat BG in 2 hours (no more than 3 times) & call for new insulin orders. DO NOT hold if NPO, unless specifically directed to do so by written order. Per Blood Glucose Monitoring Policy, re-check a BG of > 240 mg/dL in 2 hours., Routine Given 02/08/2021 1:05 PM EDT 4 Units Given 02/08/2021 7:53 AM EDT 1 Units Given 02/07/2021 4:14 PM EDT 4 Units insulin lispro (HumaLOG;Admelog) (100 unit/mL) subcutaneous injection vial 1-6 Units 1-6 Units, Subcutaneous, 3 TIMES DAILY BEFORE MEALS, First dose on Wed02/08/21 at 1630, Until Discontinued, CORRECTION BOLUS [1-6 Units] Moderate Sliding Scale (BG in mg/dL): Correction factor 20 (1 unit of insulin is expected to drop the glucose 20 mg/dL) BG 140 - 160 Give 1 unit BG 161 - 180 Give 2 units BG 181 - 200 Give 3 units BG 201 - 220 Give 4 units BG 221 - 240 Give 5 units BG greater than 240, give 6 units and recheck BG in 2 hours. - If recheck BG is LESS than 240, give no insulin and resume schedule. - If recheck BG is GREATER than 240, give 6 units and repeat BG in 2 hours (no more than 3 times) & call for new insulin orders. DO NOT hold if NPO, unless specifically directed to do so by written order. Per Blood Glucose Monitoring Policy, re-check a BG of > 240 mg/dL in 2 hours., Routine Given 02/16/2021 8:10 AM EDT 3 Units Given 02/15/2021 12:00 PM EDT 3 Units Given 02/15/2021 9:05 AM EDT 6 Units insulin lispro (HumaLOG;Admelog) (100 unit/mL) subcutaneous injection vial 4 Units 4 Units, Subcutaneous, ONCE, 1 dose, On Wed02/07/21 at 2215, Routine Given 02/07/2021 9:54 PM EDT 4 Units iohexoL (Omnipaque) (350 mg/mL) injection solution 0-200 mL 0-200 mL, Intravenous, ONCE PRN, 1 dose, Starting on Wed02/07/21 at 2322, Until Wed02/07/21 at 2312, Per Protocol, Warning Vesicant/Irritant Medication , Radiology Contrast, Routine Given 02/07/2021 11:12 PM EDT 120 mLs iohexoL (Omnipaque) (350 mg/mL) injection solution 0-200 mL 0-200 mL, Intravenous, ONCE PRN, 1 dose, Starting on Wed02/10/21 at 2251, Until Wed02/10/21 at 2251, Per Protocol, Warning Vesicant/Irritant Medication , Radiology Contrast, Routine Given 02/10/2021 10:51 PM EDT 120 mLs iohexoL (Omnipaque) (350 mg/mL) injection solution 0-50 mL 0-50 mL, Oral, ONCE PRN, 1 dose, Starting on Wed02/07/21 at 2322, Until Wed02/16/21 at 1307, Per Protocol, Warning Vesicant/Irritant Medication , Radiology Contrast, Routine iohexoL (Omnipaque) radiology oral prep (50 mL of oral contrast) 240 mL, Oral, ONCE, 1 dose, On Wed02/07/21 at 2045, 8 ounce cup = 240 mL of contrast 3 hours before scan as tolerated. The patient should not eat food or drink any other liquids during the entire period in which they are drinking the contrast. Mix 1 bottle (50 mL) of Omnipaque 350 with 1 liter (1,000 mL) non-carbonated beverage (preferably water). Close cover and shake vigorously and then refrigerate, if desired. Dispose of any excess preparation in a sink. Properly dispose of container., Routine Given 02/07/2021 8:45 PM EDT 240 mLs iohexoL (Omnipaque) radiology oral prep (50 mL of oral contrast) 240 mL, Oral, ONCE, 1 dose, On Wed02/07/21 at 2145, 8 ounce cup = 240 mL of contrast 2 hours before scan as tolerated. The patient should not eat food or drink any other liquids during the entire period in which they are drinking the contrast. Mix 1 bottle (50 mL) of Omnipaque 350 with 1 liter (1,000 mL) non-carbonated beverage (preferably water). Close cover and shake vigorously and then refrigerate, if desired. Dispose of any excess preparation in a sink. Properly dispose of container., Routine Given 02/07/2021 9:45 PM EDT 240 mLs iohexoL (Omnipaque) radiology oral prep (50 mL of oral contrast) 240 mL, Oral, ONCE, 1 dose, On Wed02/07/21 at 2245, 8 ounce cup = 240 mL of contrast 1 hours before scan as tolerated. The patient should not eat food or drink any other liquids during the entire period in which they are drinking the contrast. Mix 1 bottle (50 mL) of Omnipaque 350 with 1 liter (1,000 mL) non-carbonated beverage (preferably water). Close cover and shake vigorously and then refrigerate, if desired. Dispose of any excess preparation in a sink. Properly dispose of container., Routine Given 02/07/2021 10:45 PM EDT 240 mLs iohexoL (Omnipaque) radiology oral prep (50 mL of oral contrast) 240 mL, Oral, ONCE, 1 dose, On Wed02/07/21 at 2315, 8 ounce cup = 240 mL of contrast 20 minutes before scan as tolerated. The patient should not eat food or drink any other liquids during the entire period in which they are drinking the contrast. Mix 1 bottle (50 mL) of Omnipaque 350 with 1 liter (1,000 mL) non-carbonated beverage (preferably water). Close cover and shake vigorously and then refrigerate, if desired. Dispose of any excess preparation in a sink. Properly dispose of container., Routine Given 02/07/2021 11:15 PM EDT 240 mLs ketorolac (Toradol) (15 mg/mL) injection 15 mg 15 mg, Intravenous, EVERY 6 HOURS PRN, Starting on Vicky 02/06/21 at 2136, Until 02/08/21 at 0940, Pain, Routine Given 02/08/2021 3:01 AM EDT 15 mg Given 02/07/2021 6:36 PM EDT 15 mg Given 02/07/2021 12:24 PM EDT 15 mg ketorolac (Toradol) (30 mg/mL) injection 15 mg 15 mg, Intravenous, ONCE, 1 dose, On Wed02/05/21 at 1730, Routine Given 02/05/2021 4:46 PM EDT 15 mg ketorolac (Toradol) (30 mg/mL) injection 15 mg 15 mg, Intravenous, EVERY 6 HOURS PRN, Starting on Wed02/05/21 at 2001, Until Wed02/06/21 at 1340, Pain, Routine Given 02/06/2021 10:03 AM EDT 15 mg Given 02/06/2021 3:59 AM EDT 15 mg Given 02/05/2021 10:31 PM EDT 15 mg ketorolac (Toradol) (30 mg/mL) injection 30 mg 30 mg, Intravenous, EVERY 6 HOURS PRN, Starting on Wed02/06/21 at 1340, Until Wed02/06/21 at 1810, Pain, Routine Given 02/06/2021 2:23 PM EDT 30 mg labetaloL (Normodyne) (5 mg/mL) injection solution 10 mg 10 mg, Intravenous, EVERY 6 HOURS PRN, Starting on Wed02/06/21 at 2143, Until Wed02/09/21 at 0938, High Blood Pressure, SBP > 180, hold if HR < 60, Please try labetalol before hydralazine, Routine Given 02/07/2021 12:21 PM EDT 10 mg Given 02/07/2021 6:31 AM EDT 10 mg Given 02/06/2021 10:02 PM EDT 10 mg labetaloL (Normodyne) (5 mg/mL) injection solution 20 mg 20 mg, Intravenous, ONCE, 1 dose, On Wed02/05/21 at 0400, Routine Given 02/05/2021 3:15 AM EDT 20 mg lactated Ringers 500 mL IV bolus Intravenous, ONCE, 1 dose, On Wed02/09/21 at 0830 New Bag 02/09/2021 8:58 AM EDT lactated ringers infusion 100 mL/hr, Intravenous, CONTINUOUS, Starting on Wed02/04/21 at 1400, Until Wed02/04/21 at 2359 New Bag 02/04/2021 9:48 PM EDT 100 mL/hr 100 mL/hr New Bag 02/04/2021 1:36 PM EDT 100 mL/hr 100 mL/hr lidocaine (Lidoderm) 5% topical patch 3 patch 3 patch, Transdermal, EVERY 24 HOURS, First dose on Wed02/04/21 at 2230, Until Discontinued, Apply patch(es) for 12 hours, and then remove for 12 hours., Routine Patch Applied 02/05/2021 10:30 PM EDT 3 patches 20-Other (document i n comment section) Patch Applied 02/04/2021 9:39 PM EDT 3 patches 20-Other (document in comment section) lidocaine (Lidoderm) topical patch REMOVAL Transdermal, EVERY 24 HOURS, First dose on Wed02/05/21 at 0945, Until Discontinued, Remove lidocaine 5% patch lidocaine (Xylocaine) 1% (10 mg/mL) injection 3 mg 3 mg (0.3 mL), Subcutaneous, ONCE PRN, 1 dose, Starting on Wed02/04/21 at 1112, Until Wed02/16/21 at 1307, for discomfort with PIV insertion, Routine lisinopriL (Zestril) tablet 20 mg 20 mg, Oral, DAILY, First dose on Wed02/05/21 at 1045, Until Discontinued, Routine Given 02/06/2021 8:18 AM EDT 20 mg Given 02/05/2021 10:23 AM EDT 20 mg lisinopriL (Zestril) tablet 20 mg 20 mg, Oral, DAILY, First dose (after last modification) on Wed02/07/21 at 0730, Until Discontinued, Routine Given 02/07/2021 6:41 AM EDT 20 mg lisinopriL (Zestril) tablet 20 mg 20 mg, Oral, DAILY, First dose (after last modification) on Wed02/09/21 at 0900, Until Discontinued, Routine Given 02/16/2021 8:15 AM EDT 20 mg Given 02/15/2021 9:52 AM EDT 20 mg Given 02/14/2021 8:27 AM EDT 20 mg LORazepam (Ativan) (2 mg/mL) injection 2 mg 2 mg, Intravenous, ONCE PRN, 1 dose, Starting on Wed02/12/21 at 1913, Until Wed02/13/21 at 1735, please given 15 minutes prior to MRI, Routine Given 02/13/2021 5:35 PM EDT 2 mg LORazepam (Ativan) (2 mg/mL) injection 2 mg 2 mg, Intravenous, ONCE PRN, 1 dose, Starting on Wed02/12/21 at 1914, Until 02/16/21 at 1307, please give this second dose prior to MRI if first dose is not effective, Routine LORazepam (Ativan) tablet 1 mg 1 mg, Oral, ONCE, 1 dose, On Wed02/07/21 at 0430, Routine Given 02/07/2021 4:14 AM EDT 1 mg LORazepam (Ativan) tablet 1-3 mg 1-3 mg, Oral, EVERY 4 HOURS PRN, Starting on Wed02/07/21 at 0705, Until 02/08/21 at 0940, alcohol/benzodiazepine withdrawal- uncomplicated, Per assessment scale for uncomplicated withdrawal from alcohol. May give IV if unable to take PO. May give IM if no IV access. Medication should be administered at least every 4 hours: For withdrawal score of 5-7, give 1 mg PO or IV or IM: administer every 4 hours. For withdrawal score of 8-10, give 2 mg PO or IV or IM: administer every 4 hours. For withdrawal score of 11 or greater, give 3 mg PO or IV or IM: administer every 4 hours. + If withdrawal score remains 11 or greater for two consecutive assessment periods, call provider. + If patient has had seizures in previous 8 hours and has gone 4 hours without medications, give 3 mg PO or IV or IM., Routine Given 02/07/2021 8:06 AM EDT 1 mg magnesium sulfate 1 g in dextrose 5% 100 mL infusion 1 g, Intravenous, ONCE, 1 dose, On Wed02/10/21 at 0900, Administer over 60 Minutes New Bag 02/10/2021 8:36 AM EDT 1 g 100 mL/hr melatonin tablet 3 mg 3 mg, Oral, ONCE, 1 dose, On Wed02/06/21 at 0130, Routine Given 02/06/2021 1:02 AM EDT 3 mg melatonin tablet 6 mg 6 mg, Oral, NIGHTLY, First dose on Wed02/05/21 at 2100, Until Discontinued, Routine Given 02/08/2021 9:39 PM EDT 6 mg Given 02/07/2021 9:28 PM EDT 6 mg Given 02/06/2021 10:03 PM EDT 6 mg oxyCODONE (Roxicodone) tablet 10 mg 10 mg, Oral, EVERY 6 HOURS, First dose on 02/08/21 at 1030, Until Discontinued, Patient may refuse. Please hold if patient sleeping or somnolent, Routine Given 02/09/2021 4:35 AM EDT 10 mg Given 02/08/2021 9:39 PM EDT 10 mg Given 02/08/2021 4:14 PM EDT 10 mg oxyCODONE (Roxicodone) tablet 10 mg 10 mg, Oral, EVERY 4 HOURS, First dose (after last modification) on 02/09/21 at 1030, Until Discontinued, Patient may refuse. Please hold if patient sleeping or somnolent, Routine Given 02/10/2021 6: 30 AM EDT 10 mg Given 02/10/2021 2:28 AM EDT 10 mg Given 02/09/2021 10:16 PM EDT 10 mg oxyCODONE (Roxicodone) tablet 10 mg 10 mg, Oral, ONCE, 1 dose, On 02/09/21 at 2115, Routine Given 02/09/2021 9:01 PM EDT 10 mg oxyCODONE (Roxicodone) tablet 10 mg 10 mg, Oral, EVERY 4 HOURS PRN, Starting on Wed02/10/21 at 1030, Until Wed02/11/21 at 1919, Pain, Patient may refuse. Please hold if patient sleeping or somnolent, Routine Given 02/11/2021 3:57 PM EDT 10 mg Given 02/11/2021 11:45 AM EDT 10 mg Given 02/11/2021 7:37 AM EDT 10 mg oxyCODONE (Roxicodone) tablet 10 mg 10 mg, Oral, EVERY 3 HOURS PRN, Starting on Wed02/11/21 at 1930, Until Wed02/14/21 at 1600, Pain, Patient may refuse. Please hold if patient sleeping or somnolent, Routine Given 02/14/2021 11:57 AM EDT 1 0 mg Given 02/14/2021 8:27 AM EDT 10 mg Given 02/14/2021 2:21 AM EDT 10 mg oxyCODONE (Roxicodone) tablet 5-10 mg 5-10 mg, Oral, EVERY 3 HOURS PRN, Starting on Wed02/14/21 at 1600, Until Wed02/16/21 at 1307, Pain, Patient may refuse. Please hold if patient sleeping or somnolent, Routine Given 02/16/2021 8:22 AM EDT 5 mg Given 02/15/2021 9:35 PM EDT 5 mg Given 02/15/2021 4:17 PM EDT 5 mg piperacillin-tazobactam (Zosyn) 3.375 g vial attach to sodium chloride 0.9% 50 mL Mini-Bag Plus 3.375 g, Intravenous, EVERY 8 HOURS, First dose on Wed02/04/21 at 1515, Until Discontinued, Administer over 4 Hours, Warning Vesicant/Irritant Medication Do not administer or Y-site with lactated ringers., Indication for (Active or Suspected): GI/Intra-abdominal New Bag 02/06/2021 2:26 PM EDT 3.375 g 12.5 mL/hr New Bag 02/06/2021 6:36 AM EDT 3.375 g 12.5 mL/hr New Bag 02/05/2021 10:31 PM EDT 3.375 g 12.5 mL/hr piperacillin-tazobactam (Zosyn) 3.375 g vial attach to sodium chloride 0.9% 50 mL Mini-Bag Plus 3.375 g, Intravenous, EVERY 8 HOURS, First dose on Wed02/10/21 at 1900, Until Discontinued, Administer over 4 Hours, Warning Vesicant/Irritant Medication Do not administer or Y-site with lactated ringers., Indication for (Active or Suspected): GI/Intra-abdominal New Bag 02/12/2021 7:01 PM EDT 3.375 g 12.5 mL/hr New Bag 02/12/2021 10:54 AM EDT 3.375 g 12.5 mL/hr New Bag 02/12/2021 3:26 AM EDT 3.375 g 12.5 mL/hr polyethylene glycoL (Miralax) packet 17 g 17 g, Oral, 2 TIMES DAILY, First dose on Wed02/05/21 at 1030, Until Discontinued, Routine Given 02/16/2021 8:22 AM EDT 17 g Given 02/15/2021 9:29 PM EDT 17 g Given 02/15/2021 9:53 AM EDT 17 g potassium chloride ER (K-Dur/Klor-Con) tablet 20 mEq 20 mEq, Oral, EVERY 2 HOURS, 3 doses, First dose on Wed02/09/21 at 0830, Last dose on Wed02/09/21 at 1230, 20 mEq tablet may be dissolved in water for administration, Routine Given 02/09/2021 12:18 PM EDT 20 mEq Given 02/09/2021 10:29 AM EDT 20 mEq Given 02/09/2021 8:56 AM EDT 20 mEq potassium chloride ER (K-Dur/Klor-Con) tablet 20 mEq 20 mEq, Oral, EVERY 2 HOURS, 3 doses, First dose (after last reorder) on Wed02/10/21 at 0815, Last dose on Wed02/10/21 at 1215, 20 mEq tablet may be dissolved in water for administration, Routine Given 02/10/2021 12:35 PM EDT 20 mEq Given 02/10/2021 10:36 AM EDT 20 mEq Given 02/10/2021 8:34 AM EDT 20 mEq propofoL (Diprivan) infusion 0-50 mcg/kg/min, Intravenous, CONTINUOUS, Starting on Wed02/04/21 at 1300, Until Wed02/04/21 at 1316, Titrate to sedation level of RASS Goal (-)1 to 0 . Start at 20 mcg/kg/min, adjust rate by 10 mcg/kg/min every 3 minutes. Once stable, reassess patient every 30 minutes. Rate not to exceed 50 mcg/kg/minute. Change rate only after assessing and documenting RASS. Reassess sedation scores within 30 minutes after every rate change. If under sedated, increase rate by 10 mcg/kg/min. If over sedated, hold sedative until target RASS (-)1 to 0 achieved and then restart at 50% of previous rate. Call lab[facility] beam [facility] if goal not achieved at maximum rate. If SAT is ordered and if patient meets criteria for Spontaneous Awakening Trial, titrate per protocol., Routine Continued Bag 02/04/2021 12:57 PM EDT 50 mcg/kg/min propofoL (Diprivan) infusion 0-50 mcg/kg/min ? 110.7 kg (0-33.21 mL/hr, rounded to 0-33.2 mL/hr), Intravenous, CONTINUOUS, Starting on Wed02/04/21 at 1415, Until Wed02/05/21 at 0949, Titrate to sedation level of RASS Goal (-)1 to 0 . Start at 20 mcg/kg/min, adjust rate by 10 mcg/kg/min every 3 minutes. Once stable, reassess patient every 30 minutes. Rate not to exceed 50 mcg/kg/minute. Change rate only after assessing and documenting RASS. Reassess sedation scores within 30 minutes after every rate change. If under sedated, increase rate by 10 mcg/kg/min. If over sedated, hold sedative until target RASS (-)1 to 0 achieved and then restart at 50% of previous rate. Call [facility] house if goal not achieved at maximum rate. If SAT is ordered and if patient meets criteria for Spontaneous Awakening Trial, titrate per protocol., Routine New Bag 02/04/2021 3:51 PM EDT 10 mcg/kg/min 6.6 mL/hr Rate/Dose Change 02/04/2021 2:00 PM EDT 20 mcg/kg/min 13.3 mL/hr Rate/Dose Change 02/04/2021 1:43 PM EDT 40 mcg/kg/min 26.6 mL/hr senna-docusate (Pericolace) 8.6-50 mg per tablet 1 tablet 1 tablet, Oral, 2 TIMES DAILY, First dose (after last modification) on Wed02/05/21 at 2100, Until Discontinued, Routine Given 02/16/2021 8:15 AM EDT 1 tablet Given 02/15/2021 9:29 PM EDT 1 tablet Given 02/15/2021 9:52 AM EDT 1 tablet senna-docusate (Pericolace) 8.6-50 mg per tablet 2 tablet 2 tablet, Oral, 2 TIMES DAILY, First dose (after last modification) on Wed02/05/21 at 1045, Until Discontinued, Routine Given 02/05/2021 10:23 AM EDT 2 tabl ets sodium chloride 0.9 % (flush) (BD PosiFlush Normal Saline 0.9) flush 5 mL 5 mL, Intravenous, 2 TIMES DAILY, First dose on Wed02/04/21 at 1200, Until Discontinued, Routine Given 02/16/2021 8:24 AM EDT 5 mLs Given 02/15/2021 9:36 PM EDT 5 mLs Given 02/15/2021 9:52 AM EDT 5 mLs sodium chloride 0.9 % (flush) (BD PosiFlush Normal Saline 0.9) flush 5-20 mL 5-20 mL, Intravenous, EVERY 1 MIN PRN, Starting on Wed02/04/21 at 1112, Until Wed02/16/21 at 1307, flush, Flush pertains to all indwelling lines. Flush per protocol found in the job aid using the link provided on this medication record., Routine sodium chloride 0.9% 1,000 mL IV bolus Intravenous, ONCE, 1 dose, On Wed02/07/21 at 1045 New Bag 02/07/2021 11:17 AM EDT sodium chloride 0.9% infusion 100 mL/hr, Intravenous, CONTINUOUS, Starting on Wed02/07/21 at 1845, Until Wed02/08/21 at 0940 New Bag 02/08/2021 5:14 AM EDT 100 mL/hr 100 mL/hr New Bag 02/07/2021 6:02 PM EDT 100 mL/hr 100 mL/hr spironolactone (Aldactone) tablet 25 mg 25 mg, Oral, 2 TIMES DAILY, First dose on Wed02/05/21 at 1045, Until Discontinued, DO NOT SPLIT, CRUSH OR OPEN, Routine Given 02/06/2021 10:03 PM EDT 25 mg Given 02/06/2021 8:18 AM EDT 25 mg Given 02/05/2021 8:45 PM EDT 25 mg spironolactone (Aldactone) tablet 25 mg 25 mg, Oral, 2 TIMES DAILY, First dose (after last modification) on Wed02/07/21 at 0730, Until Discontinued, DO NOT SPLIT, CRUSH OR OPEN, Routine Given 02/07/2021 9:27 PM EDT 25 mg Given 02/07/2021 6:41 AM EDT 25 mg spironolactone (Aldactone) tablet 25 mg 25 mg, Oral, 2 TIMES DAILY, First dose (after last modification) on Wed02/09/21 at 2100, Until Discontinued, DO NOT SPLIT, CRUSH OR OPEN, Routine Given 02/16/2021 8:15 AM EDT 25 mg Given 02/15/2021 9:29 PM EDT 25 mg Given 02/15/2021 9:52 AM EDT 25 mg spironolactone (Aldactone) tablet 50 mg 50 mg, Oral, 2 TIMES DAILY, First dose (after last modification) on 02/08/21 at 2100, Until Discontinued, DO NOT SPLIT, CRUSH OR OPEN, Routine Given 02/09/2021 8:56 AM EDT 50 mg Given 02/08/2021 9:39 PM EDT 50 mg terazosin (Hytrin) capsule 2 mg 2 mg, Oral, 2 TIMES DAILY, First dose on Wed02/07/21 at 1545, Until Discontinued, Routine Given 02/09/2021 8:56 AM EDT 2 mg Given 02/08/2021 9:39 PM EDT 2 mg Given 02/08/2021 9:56 AM EDT 2 mg traZODone (Desyrel) tablet 100 mg 100 mg, Oral, NIGHTLY, First dose on 02/09/21 at 2115, Until Discontinued, Routine Given 02/15/2021 9:29 PM EDT 100 mg Given 02/14/2021 8:26 PM EDT 100 mg Given 02/13/2021 8:41 PM EDT 100 mg documented in this encounter Active and Recently Administered Medications Times are shown in EDT. Scheduled Medication Order 02/14/2021 02/15/2021 02/16/2021 acetaminophen (Tylenol) tablet 975 mg 975 mg, Oral, EVERY 8 HOURS, First dose on 02/08/21 at 1030, Until Discontinued, Maximum dose of acetaminophen is 4000 mg from all sources in 24 hours. When ordered for pain, acetaminophen should be given even when other ordered pain medications are indicated. , Routine 022 (Given - Provider: Alexandra Brooke RN)1056 (Given - Provider: Shayy Navarro, VITOR)1838 (Given - Provider: Shayy Navarro RN) 0306 (Given - Provider: Gloria White RN)0952 (Given - Provider: Cassidy J Roberth, RN)1737 (Given - Provider: Cassidy Lepe RN) 0236 (Given - Provider: Gloria White, RN)1023 (Given - Provider: Jennifer Combs RN) amLODIPine (Norvasc) tablet 5 mg 5 mg, Oral, DAILY, First dose (after last modification) on Wed02/11/21 at 0900, Until Discontinued, Routine 08 (Given - Provider: Shayy Navarro RN) 0952 (Given - Provider: Cassidy Lepe RN) 0815 (Given - Provider: Iza Sheldon, VITOR) aspirin chewable tablet 81 mg 81 mg, Oral, DAILY, First dose on Wed02/05/21 at 1045, Until Discontinued, Routine 08 (Given - Provider: Shayy Navarro RN) 0952 (Given - Provider: Cassidy Lepe RN) 0815 (Given - Provider: Iza Sheldon, VITOR) bisacodyL (Dulcolax) suppository 10 mg 10 mg, Rectal, DAILY, First dose on Wed02/12/21 at 1000, Until Discontinued, Please give by lunchtime on 02/12 if he hasn't had a bowel movement by then, Routine 0949 (Given - Provider: Shayy Navarro RN) 1207 (Given - Provider: Cassidy Lepe RN) 0815 (Given - Provider: Iza Sheldon, VITOR) enoxaparin (Lovenox) (40 mg/0.4 mL) subcutaneous injection 40 mg 40 mg, Subcutaneous, NIGHTLY, First dose on Wed02/08/21 at 2100, Until Discontinued, Routine 2024 (Given - Provider: Gloria White, VITOR) 2128 (Given - Provider: Gloria White, VITOR) ibuprofen (Advil) tablet 600 mg 600 mg, Oral, EVERY 8 HOURS, First dose on Vicky 02/13/21 at 1045, Until Discontinued, Administer orally with milk or food to minimize GI irritation. Maximum dose of 3,200 mg from all sources in 24 hours, Routine 221 (Given - Provider: Alexandra Brooke RN)1056 (Given - Provider: Shayy Navarro RN)2240 (Given - Provider: Gloria White, VITOR) 0645 (Given - Provider: Gloria White RN)1443 (Given - Provider: Cassidy Lepe, VITOR)2134 (Given - Provider: Gloria White, VITOR) 0641 (Given - Provider: Gloria White, RN) insulin glargine (Lantus) (100 unit/mL) subcutaneous injection vial 15 Units 15 Units, Subcutaneous, NIGHTLY, First dose on Wed02/08/21 at 2100, Until Discontinued, Routine 2034 (Given - Provider: Gloria White, VITOR) 2128 (Given - Provider: Gloria White, RN) insulin lispro (HumaLOG;Admelog) (100 unit/mL) subcutaneous injection vial 0-8 Units 0-8 Units, Subcutaneous, 3 TIMES DAILY WITH MEALS, First dose on Wed02/11/21 at 1815, Until Discontinued, [employer] Give 1 unit for every 10 grams carbohydrate. Hold if not eating or if BG less than 70 mg/dL., Routine 0800 (Not Given - Provider: Shayy Navarro RN - Reason: NPO)1349 (Given - Provider: Shayy Navarro RN - Comment: late lunch)1856 (Given - Provider: Shayy Navarro RN - Comment: late dinner) 0906 (Given - Provider: Vianney Cohen RN)1200 (Given - Provider: Cassidy Lepe, VITOR)1738 (Given - Provider: Cassidy Lepe, VITOR) 0825 (Given - Provider: Iza Sheldon, VITOR) insulin lispro (HumaLOG;Admelog) (100 unit/mL) subcutaneous injection vial 1-6 Units(Linked Group 1) 1-6 Units, Subcutaneous, 3 TIMES DAILY BEFORE MEALS, First dose on Wed02/08/21 at 1630, Until Discontinued, CORRECTION BOLUS [1-6 Units] Moderate Sliding Scale (BG in mg/dL): Correction factor 20 (1 unit of insulin is expected to drop the glucose 20 mg/dL) BG 140 - 160 Give 1 unit BG 161 - 180 Give 2 units BG 181 - 200 Give 3 units BG 201 - 220 Give 4 units BG 221 - 240 Give 5 units BG greater than 240, give 6 units and recheck BG in 2 hours. - If recheck BG is LESS than 240, give no insulin and resume schedule. - If recheck BG is GREATER than 240, give 6 units and repeat BG in 2 hours (no more than 3 times) & call for new insulin orders. DO NOT hold if NPO, unless specifically directed to do so by written order. Per Blood Glucose Monitoring Policy, re-check a BG of > 240 mg/dL in 2 hours., Routine 0730 (Not Given - Provider: Shayy Navarro RN - Reason: Order parameters not met)1201 (Given - Provider: Shayy Navarro RN)1630 (Not Given - Provider: Shayy Navarro RN - Reason: Order parameters not met) 0905 (Given - Provider: Vianney Cohen, VITOR)1200 (Given - Provider: Cassidy Lepe, VITOR)1630 (Not Given - Provider: Cassidy Lepe RN - Reason: Order parameters not met) 0810 (Given - Provider: Iza Sheldon RN - Comment: BS 194) lidocaine (Lidoderm) 5% topical patch 3 patch(Linked Group 2) 3 patch, Transdermal, EVERY 24 HOURS, First dose on Wed02/04/21 at 2230, Until Discontinued, Apply patch(es) for 12 hours, and then remove for 12 hours., Routine 2230 (Not Given - Provider: Gloria White RN - Reason: Patient/family refused) 2230 (Not Given - Provider: Gloria White RN - Reason: Patient/family refused) lidocaine (Lidoderm) topical patch REMOVAL(Linked Group 2) Transdermal, EVERY 24 HOURS, First dose on Wed02/05/21 at 0945, Until Discontinued, Remove lidocaine 5% patch 0945 (Patch Not Removed (add comment) - Provider: Shayy Navarro RN - Comment: none to remove) 0945 (Patch Not Removed (add comment) - Provider: Cassidy Lepe RN - Comment: patches not found on pt) 0945 (Patch Not Removed (add comment) - Provider: Iza Sheldon RN - Comment: Patch not on pt) lisinopriL (Zestril) tablet 20 mg 20 mg, Oral, DAILY, First dose (after last modification) on Wed02/09/21 at 0900, Until Discontinued, Routine 0827 (Given - Provider: Shayy Navarro RN) 0952 (Given - Provider: Cassidy Lepe, VITOR) 0815 (Given - Provider: Iza Sheldon, VITOR) polyethylene glycoL (Miralax) packet 17 g 17 g, Oral, 2 TIMES DAILY, First dose on Wed02/05/21 at 1030, Until Discontinued, Routine 0949 (Given - Provider: Shayy Navarro RN)2024 (Given - Provider: Gloria White RN) 0953 (Given - Provider: Cassidy Lepe RN)2128 (Given - Provider: Gloria White RN) 08 (Given - Provider: Iza Sheldon, VITOR) senna-docusate (Pericolace) 8.6-50 mg per tablet 1 tablet 1 tablet, Oral, 2 TIMES DAILY, First dose (after last modification) on Wed02/05/21 at 2100, Until Discontinued, Routine 0827 (Given - Provider: Shayy Navarro RN)2025 (Given - Provider: Gloria White RN) 0952 (Given - Provider: Cassidy Lepe RN)2128 (Given - Provider: Gloria White RN) 08 (Given - Provider: Iza Sheldon, VITOR) sodium chloride 0.9 % (flush) (BD PosiFlush Normal Saline 0.9) flush 5 mL 5 mL, Intravenous, 2 TIMES DAILY, First dose on Wed02/04/21 at 1200, Until Discontinued, Routine 0828 (Given - Provider: Shayy Navarro RN)2040 (Given - Provider: Gloria White RN) 0952 (Given - Provider: Cassidy Lepe RN)2135 (Given - Provider: Gloria White RN) 0824 (Given - Provider: Iza Sheldon, VITOR) spironolactone (Aldactone) tablet 25 mg 25 mg, Oral, 2 TIMES DAILY, First dose (after last modification) on Wed02/09/21 at 2100, Until Discontinued, DO NOT SPLIT, CRUSH OR OPEN, Routine 0827 (Given - Provider: Shayy Navarro RN)2026 (Given - Provider: Gloria White RN) 0952 (Given - Provider: Cassidy Lepe RN)2128 (Given - Provider: Gloria White, RN) 814 (Given - Provider: Iza Sheldon RN) traZODone (Desyrel) tablet 100 mg 100 mg, Oral, NIGHTLY, First dose on 02/09/21 at 2115, Until Discontinued, Routine 2025 (Given - Provider: Gloria White, RN) 2128 (Given - Provider: Gloria White, VITOR) PRN Medication Order 02/14/2021 02/15/2021 02/16/2021 albuteroL (Proventil) nebulizer solution 2.5 mg 2.5 mg, Nebulization, EVERY 6 HOURS PRN, Starting on 02/08/21 at 2015, Until 02/16/21 at 1307, Wheezing, Shortness of Breath, Routine cyclobenzaprine (Flexeril) tablet 10 mg 10 mg, Oral, 3 TIMES DAILY PRN, Starting on Vicky 02/06/21 at 1026, Until Wed02/16/21 at 1307, Muscle spasms, Routine iohexoL (Omnipaque) (350 mg/mL) injection solution 0-50 mL 0-50 mL, Oral, ONCE PRN, 1 dose, Starting on Wed02/07/21 at 2322, Until Wed02/16/21 at 1307, Per Protocol, Warning Vesicant/Irritant Medication , Radiology Contrast, Routine lidocaine (Xylocaine) 1% (10 mg/mL) injection 3 mg 3 mg (0.3 mL), Subcutaneous, ONCE PRN, 1 dose, Starting on Wed02/04/21 at 1112, Until Wed02/16/21 at 1307, for discomfort with PIV insertion, Routine LORazepam (Ativan) (2 mg/mL) injection 2 mg 2 mg, Intravenous, ONCE PRN, 1 dose, Starting on Wed02/12/21 at 1914, Until Wed02/16/21 at 1307, please give this second dose prior to MRI if first dose is not effective, Routine oxyCODONE (Roxicodone) tablet 10 mg (CANCELED) 10 mg, Oral, EVERY 3 HOURS PRN, Starting on Wed02/11/21 at 1930, Until Wed02/14/21 at 1600, Pain, Patient may refuse. Please hold if patient sleeping or somnolent, Routine 0221 (Given - Provider: Alexandra Brooke RN)0827 (Given - Provider: Shayy Navarro, RN)1157 (Given - Provider: Shayy Navarro, VITOR) oxyCODONE (Roxicodone) tablet 5-10 mg 5-10 mg, Oral, EVERY 3 HOURS PRN, Starting on Wed02/14/21 at 1600, Until 02/16/21 at 1307, Pain, Patient may refuse. Please hold if patient sleeping or somnolent, Routine 1602 (Given - Provider: Shayy Navarro, RN)1714 (Given - Provider: Shayy Navarro, RN)2035 (Given - Provider: Gloria White, RN) 0518 (Given - Provider: Gloria White, VITOR)0951 (Given - Provider: Cassidy Lepe, VITOR)1617 (Given - Provider: Jany Mayes, VITOR)2135 (Given - Provider: Gloria White, VITOR) 0822 (Given - Provider: Iza Sheldon RN) sodium chloride 0.9 % (flush) (BD PosiFlush Normal Saline 0.9) flush 5-20 mL 5-20 mL, Intravenous, EVERY 1 MIN PRN, Starting on Wed02/04/21 at 1112, Until 02/16/21 at 1307, flush, Flush pertains to all indwelling lines. Flush per protocol found in the job aid using the link provided on this medication record., Routine Linked Groups Order Group 1: POCT Fingerstick Glucose (CANCELED) Routine, 4 TIMES DAILY BEFORE MEALS & AT BEDTIME, First occurrence on 02/08/21 at 1700, Until Specified, Consider choosing FOUR TIMES A DAY BEFORE MEALS AND AT BEDTIME as frequency for: Patients who have a good hypoglycemia awareness: -Patients who are eating meals during the day and sleeping at night -Patient who are otherwise stable And insulin lispro (HumaLOG;Admelog) (100 unit/mL) subcutaneous injection vial 1-6 UnitsJump to med 1-6 Units, Subcutaneous, 3 TIMES DAILY BEFORE MEALS, First dose on 02/08/21 at 1630, Until Discontinued, CORRECTION BOLUS [1-6 Units] Moderate Sliding Scale (BG in mg/dL): Correction factor 20 (1 unit of insulin is expected to drop the glucose 20 mg/dL) BG 140 - 160 Give 1 unit BG 161 - 180 Give 2 units BG 181 - 200 Give 3 units BG 201 - 220 Give 4 units BG 221 - 240 Give 5 units BG greater than 240, give 6 units and recheck BG in 2 hours. - If recheck BG is LESS than 240, give no insulin and resume schedule. - If recheck BG is GREATER than 240, give 6 units and repeat BG in 2 hours (no more than 3 times) & call for new insulin orders. DO NOT hold if NPO, unless specifically directed to do so by written order. Per Blood Glucose Monitoring Policy, re-check a BG of > 240 mg/dL in 2 hours., Routine Group 2: lidocaine (Lidoderm) 5% topical patch 3 patchJump to med 3 patch, Transdermal, EVERY 24 HOURS, First dose on Wed02/04/21 at 2230, Until Discontinued, Apply patch(es) for 12 hours, and then remove for 12 hours., Routine And lidocaine (Lidoderm) topical patch REMOVALJump to med Transdermal, EVERY 24 HOURS, First dose on Wed02/05/21 at 0945, Until Discontinued, Remove lidocaine 5% patch documented in this encounter Care Teams Liner Reroll Tender Relationship Specialty Start Date End Date Peña Turner DO [address] [place] [address] PCP - General 05/13/10 07/21/21 documented as of this encounter
--- OUTSIDE RECORDS SUMMARY | 2024-06-12 14:16 | XMS_ITS | Encounter Summary ---
Author Organization [facility] Address [facility] [place] [address] Care Team Providers Care Financial Institution President Name Role Phone Peña Turner Primary Care Provider Reason for Visit * Reason Comments Procedure Encounter Details Date Type Department Care Team (Late st Contact Info) Description 07/09/2017 3:00 PM EST Office Visit Dermatology at [facility] [address] [place] [address] Leatha Raygoza MD [facility] [address] [place] [address] Multiple acquired skin tags Social History Tobacco Use Types Packs/Day Years Used Date Smoking Tobacco: Never Smokeless Tobacco: Never Alcohol Use Standard Drinks/Week Comments Yes 0 (1 standard drink = 0.6 oz pur e alcohol) occasionally Sex and Gender Information Value Date Recorded Sex Assigned at Not on file Gender Identity Not on file Sexual Orientation Not on file documented as of this encounter Progress Notes * Leatha Raygoza W - 07/09/2017 3:00 PM EST Images from the original note were not included. DERMATOLOGY - ESTABLISHED PATIENT FOLLOW-UP Date of service: 07/09/2017 Pancho Babb : 1965, 52 y.o. CC: Skin tags HPI: Pancho Babb is a 52 y.o. male here for cosmetic removal of skin tags in the axillae. Is awareof the $100 fee. Current Outpatient Prescriptions: ??? spironolactone (ALDACTONE) 25 [...] distress. - Skin: Skin examination of the axillas Diagnosis/Skin findings/Assessment/Plan: 1. Skin tags- 8 fleshy pedunculated papules on the neck and axillae. Cosmetic cost: $100; paid upon exiting clinic Procedure: Snip excision Site: Axillae, neck Discussed procedure and expectations including risks and benefits. Verbal consent obtained. Sterileskin prep performed. The lesion was removed by scissors technique. Hemostasis obtained. There were no complications; the patient tolerated the procedure well. Post-procedure expectations (including discomfort management), wound care and activity restrictions were reviewed. Note initiated by Aruna Butterfield CMA. I am documenting this encounter acting as the scribe for and in the presence of Leatha Raygoza MD I performed the above scribed service and agree with the accuracy of the documentation in this encounter. Reviewed and signed by Leatha Raygoza MD Resident in Dermatology [facility] Patient seen and evaluated with staff campaign worker: Jer Nina MD Section of Dermatology [facility] * Jer Nina MD - 07/09/2017 3:00 PM EST I directly supervised Dr. Leatha Raygoza during [...] Priority Date/Time Associated Diagnosis Comments SURGICAL PATHOLOGY REPORT Routine 07/09/2017 3:43 PM EST documented in this encounter Results * Surgical Pathology Report (07/09/2017 3:43 PM EST) Final Diagnosis [id number] ? Location: [facility] The signing pathologist has (i) examined the relevant preparation(s) for the specimen(s) and (ii) rendered or confirmed the diagnosis(es). . ?Surgical Pathology DIAGNOSIS A. Skin, left superior eyebrow, punch ?? biopsy: - Intradermal melanocytic nevus. Electronically signed by: ??Janett Helm MD Verified: ??07/16/2017 ?Dermatopathol ogist Performed at: ??[facility], [place], [place] ADDITIONAL STUDIES Multiple step-leveled sections were reviewed. CLINICAL INFORMATION Specimen Submitted: A - Skin, left superior eyebrow, punch (1) Clinical History: 6 mm flesh colored papule Clinical Diagnosis: Dermal nevus SPECIMEN PROCESSING A - Labeled/Fixativ e: Left superior eyebrow, formalin. Quantity/Size: Single, 0.6 cm. Tissue Description: Punch of white skin papule. Sections/Proces sing: Inked and bisected. (T1) ??sns 07/16/2017 10:24 AM EST [facility] SPECIMEN FROM SKIN / Unknown 07/09/2017 3:43 PM EST 07/09/2017 3:43 PM EST Leatha Raygoza MD PATHOLOGY/CYTOLOGY O QUYNH [facility] [place] [address] documented in this encounter Visit Diagnoses Diagnosis Multiple acquired skin tags documented in this encounter Care Teams Financial Institution President Relationship Specialty Start Date End Date Peña Turner DO [address] [place] [address] PCP - General 05/13/10 07/21/21 documented as of this encounter
--- OUTSIDE RECORDS SUMMARY | 2024-06-12 14:16 | XMS_ITS | Encounter Summary ---
Author Organization [facility] Address [facility] [place] [address] Care Team Providers Care Mixing Technician Name Role Phone Peña Turner DO Primary Care Provider Reason for Visit * Reason Onset Date Comments Medication Refill 09/11/2019 Encounter Details Date Type Department Care Team (Late st Contact Info) Description 09/11/2019 [place] [address] Celso Raza MD [facility] [place] [address] Social History Tobacco Use Types Packs/Day Years [...] on filedocumented in this encounter Care Teams Mixing Technician Relationship Specialty Start Date End Date Peña Turner DO [address] [place] [address] PCP - General 05/13/10 07/21/21 documented as of this encounter
--- OUTSIDE RECORDS SUMMARY | 2024-06-12 14:16 | XMS_ITS | Encounter Summary ---
Author Organization [facility] Address [facility] [place] [address] Care Team Providers Care Aviation Technical Systems Specialist Name Role Phone Peña Turner DO Primary Care Provider [phone] Reason for Visit * Reason Comments Medication Refill Encounter Details Date Type Department Care Team (Late st Contact Info) Description 08/18/2019 [place] [address] Celso Raza MD [facility] [place] [address] Social History Tobacco Use Types Packs/Day Years [...] on filedocumented in this encounter Care Teams Aviation Technical Systems Specialist Relationship Specialty Start Date End Date Peña Turner DO [address] [place], [place] [address] PCP - General 05/13/10 07/21/21 documented as of this encounter
--- OUTSIDE RECORDS SUMMARY | 2024-06-12 14:16 | XMS_ITS | Encounter Summary ---
Author Organization [facility] Address [facility] [place] [address] Care Team Providers Care Pre K Teacher Name Role Phone Peña Turner DO Primary Care Provider Encounter Details Date Type Department Care Team (Late st Contact Info) Description 06/24/2020 4:00 PM EST Office [place] [phone] Celso Raza MD [facility] [place] [address] Adrenal nodule (Primary Dx); Vitamin D deficiency; Controlled type 2 diabetes mellitus without complication, without long-term current use of insulin; Dyslipidemia Social History Tobacco Use Types Packs/Day Years [...] Sign Reading Time Taken Comments Blood Pressure 138/80 06/24/2020 3:58 PM EST Pulse 72 06/24/2020 3:58 PM EST Temperature 36.6 ??C (97.9 ??F) 06/24/2020 3:58 PM ES T Respiratory Rate - - Oxygen Saturation 99% 06/24/2020 3:58 PM EST Inhaled Oxygen Concentration - - Weight 105.8 kg (233 lb 3.2 oz) 06/24/2020 3:58 PM EST Height 177.8 cm (5' 10) 06/24/2020 3:58 PM EST Body Mass Index 33.46 06/24/2020 3:58 PM EST documented in this encounter Patient Instructions * Patient Instructions* Celso Raza MD - 06/24/2020 4:00 PM EST Plan: - Recheck CT scan of abdomen [...] c-peptide, and 25vitamin D. - As he has gained wt with h/o DM/preDM today, ok to increase metforminER 1,000mg back to 1,500 mg daily (used to have A1c 6.8% in Jun 2015-> 6.0-6.3% -> 5.2% in 2019 -> pending today). - He will try his best on diet control and do more exercise walking at least 20- 30 mins daily. - To cont vitamin D vitamin-D 50,000 iu weekly (last vit D was low at 19; normal 30-100). So, pt should take as prescribed and will recheck lab in 6 mo. - Next lab test today for A1c, CMP, dLDL and 25vitamin D. - RTC 6-12 mo or earlier if needed. Celso Raza MD, PhD, FACE, FACP documented in this encounter Progress Notes * Celso Raza MD - 06/24/2020 4:00 PM EST Images from the original note were not included. ENDOCRINOLOGY FOLLOW-UP NOTE Patient Name: Aroldo Gunter : 1965 PCP: Dr. Turner Date : 06/24/2020 Reason for follow-up: HTN with low potassium levels - improved on spironolactone, and stable bilateral adrenal nodules on CT scan 04/24/16 and 05/20/17 DM/prediabetes with insulin resistance - started on metforminER since Jul 2018 with better control History of Presenting Illness: This is a 55 y.o. male patient who initially presented to Endocrine clinic on 02/25/16 for low potassium, HTN and and bilateral adrenal nodules, seen by Dr. Ramírez in 2015 and [facility]. It is still unclear if [...] from 248 to 238, 233 lbs and lowest wt at 220 lbs in 2019 (total wt loss 22 lbs since 2016) but now back to 233 lbs after Covid19 pandemic. Also, vitamin D deficiency and started on vitD 50,000 iu weekly since Jul 2018, so we will recheck lab today for A1c, 25vitD and BMP. Background history: Aroldo was [...] (-) for Constitutional: No tiredness, +recent weight gain of 11 lbs from 222 to 233 lbs today and highest wt was 248 lbs in 2015. 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 Dad- DMT2 at age 80 yrs No FH adrenal, thyroid, parathyroid problems, no h/o early HTN Allergies: No Known Allergies Vitals Patient Vitals for the past 24 hrs: Temp Pulse BP SpO2 06/24/20 1558 36.6 ??C (97.9 ??F) 72 138/80 99 % Physical Exam: BP 138/80 Pulse 72 Temp 36.6 ??C (97.9 ??F) Ht 177.8 cm (5' 10) Wt 105.8 kg (233 lb 3.2 oz) SpO2 99% BMI 33.46 kg/m?? Appearance: Patient is very pleasant white male, mildly obese, clinically euthyroid, not in acute distress and not Cushingoid Skin - normal in [...] ??Stable mild diffuse hepatic steatosis with hepatomegaly. Addendum: lab on 02/21/19 showed better vitamin D at 56 (was low at 19 in Jul), c- peptide insulin level of 5.8 (was 8.2) with normal A1c 5.2% (down from 6.0-6.8%) after taking metformin and vitamin D 50,000 iu weekly supplement. Other results were all ok. Ok to continue all current treatment and recheck lab as planned next year. Results for AROLDO GUNTER ( [...] Range: 0.8 - 5.2 ng/mL 5.8 (H) Assessment: This is a 55 y.o. male patient with h/o HTN and hypokalemia in the past associated with elevated aldosterone and low renin (borderline high ARR at 29, normal <30 after he was off lisinopril for 2 weeks) and CT scan showed bilateral small adrenal nodules of 10-16 mm He also has some features of metabolic syndrome given diet-controlled T2DM, HTN, BMI 34-35=> 31-32 which is excellent on metforminER 1,000-1500 mg/day [...] c-peptide, and 25vitamin D. - As he has gained wt with h/o DM/preDM today, ok to increase metforminER 1,000mg back to 1,500 mg daily (used to have A1c 6.8% in Jun 2015-> 6.0-6.3% -> 5.2% in 2019 -> pending today). - He will try his best on diet control and do more exercise walking at least 20- 30 mins daily. - To cont vitamin D vitamin-D 50,000 iu weekly (last vit D was low at 19; normal 30-100). So, pt should take as prescribed and will recheck lab in 6 mo. - Next lab test today for A1c, CMP, dLDL and 25vitamin D. - RTC 6-12 mo or earlier if needed. Celso Raza MD, PhD, FACE, FACP documented in this encounter Miscellaneous Notes * Addendum Note - Nisha Pedroza - 06/24/2020 4:00 PM ESTAddended by: NISHA PEDROZA on: 06/24/2020 04:42 PM Modules accepted: Orders documented in this encounter Plan of Treatment Not on file documented as of this encounter Procedures Procedure Name Priority Date/Time Associated Diagnosis Comments HC VITAMIN D TOTAL-25 HYDROXY Routine 06/24/2020 5:04 PM EST Adrenal nodule Vitamin D deficiency Controlled type 2 diabetes mellitus without complication, without long-term current use of insulin Dyslipidemia HC LDL CHOLESTEROL, DIRECT Routine 06/24/2020 5:04 PM EST Adrenal nodule Vitamin D deficiency Controlled type 2 diabetes mellitus without complication, without long-term current use of insulin Dyslipidemia HC HEMOGLOBIN A1C Routine 06/24/2020 5:0 4 PM EST Adrenal nodule Vitamin D deficiency Controlled type 2 diabetes mellitus without complication, without long-term current use of insulin Dyslipidemia COMPREHENSIVE METABOLIC PANEL Routine 06/24/2020 5:04 PM EST Adrenal nodule Vitamin D deficiency Controlled type 2 diabetes mellitus without complication, without long-term current use of insulin Dyslipidemia documented in this encounter Results * LDL Cholesterol, Direct (06/24/2020 5:04 PM EST) LDL Cholesterol, Direct 118 mg/dL [facility] Comment: Lowest Risk: <100 mg/dL Lower Risk: 100-129 mg/dL Borderline High Risk: 130-159 mg/dL High Risk: 160-189 mg/dL Very High Risk: >ti=075 mg/dL Blood specimen (specimen) 06/24/2020 5:04 PM EST 06/24/2020 5:28 PM EST Narrative Resulting Agency Comment Spec In Lab Celso Raza MD CHEMISTRY ORDERAB LES [facility] [place] [address] * Comprehensive metabolic panel (non-fasting) (06/24/2020 5:04 PM EST) Glucose 116 65 - 199 mg/dL [facility] Comment:Diabetes: >=200 mg/d L plus symptoms Blood Urea Nitrogen 15 10 - 20 mg/dL [facility] Creatinine 1.13 0.80 - 1.50 mg/dL [facility] Sodium 143 135 - 145 mmol/L [facility] Potassium 3.7 3.5 - 5.0 mmol/L [facility] Comment: Please note: ??Patients with WBC >100,000 may have falsely elevated Potassium levels. ??For accurate Potassium quantification in these patients send serum separator tube (gold top) for subsequent determinations. ??Contact the Clinical Chemistry Laboratory if there are any questions. Chloride 106 98 - 107 mmol/L [facility] Carbon Dioxide 25 22 - 31 mmol/L [facility] Anion Gap 12 5 - 15 mmol/L [facility] Calcium 9.4 8.5 - 10.5 mg/dL [facility] Protein, Total 7.1 6.1 - 8.0 gm/dL [facility] Albumin 4.5 3.2 - 5.2 gm/dL [facility] Aspartate Aminotransferase 19 0 - 39 unit/L [facility] Alanine Aminotransferase 27 0 - 55 unit/L [facility] Alkaline Phosphatase 71 40 - 130 unit/L [facility] Bilirubin, Total 0.5 0.2 - 1.3 mg/dL [facility] Est Glomerular Filtration Rate 72 >=60 mL/min/1. 73 m?? [facility] Comment: This patient? s estimated glomerular filtration rate (eGFR) is between 72 mL/min/1.73 m2 (patients with less muscle mass per kg body weight) and 84 mL/min/1.73 m2 (patients with more muscle mass per kg body weight) as determined by the CKD-EPI equation. Assessment of eGFR is not appropriate when creatinine concentrations are rapidly changing. For clinical decisions where creatinine clearance will affect therapy, a 24-hour urine creatinine clearance may be advised. Assignment of CKD stage 1 ? 5 for patients with an eGFR near the transition point between stages may be based on clinical assessment of muscle mass and symptoms in addition to eGFR. Blood specimen (specimen) 06/24/2020 5:04 PM EST 06/24/2020 5:28 PM EST Narrative Resulting Agency Comment Spec In Lab Celso Raza MD CHEMISTRY ORDERAB LES Performing Organization Address City/[facility]/ZIP Co de Phone Number [facility] [place] [address] * Vitamin D, 25-Hydroxy (06/24/2020 5:04 PM EST) Vitamin D Total 25 OH 58 21 - 100 ng/mL [facility] Vit D Interp Sufficient [facility] Blood specimen (specimen) 06/24/2020 5:04 PM EST 06/24/2020 5:28 PM EST Narrative Resulting Agency Comment Spec In Lab Celso Raza MD CHEMISTRY ORDERAB LES Performing Organization Address City/[facility]/ZIP Co de Phone Number [facility] [place] [address] * Hemoglobin A1c (06/24/2020 5:04 PM EST) Hemoglobin A1c 5.4 4.3 - 5.6 % [facility] [...] Mellitus, Diabetes Care 2013; 36: Suppl. 1, T28-61 Estimated Average Glucose 110 mg/dL [facility] Comment: eAG equivalents [...] into estimated average glucose values. ??Diabetes Care 2008:31(8):8360-9648. Blood specimen (specimen) 06/24/2020 5:04 PM EST 06/24/2020 5:28 PM EST Narrative Resulting Agency Comment Spec In Lab Celso Raza MD CHEMISTRY ORDERAB LES [facility] [place] [address] documented in this encounter Visit Diagnoses Diagnosis Adrenal nodule- Primary Other specified disorders of adrenal glands Vitamin D deficiency Unspecified vitamin D deficiency Controlled type 2 diabetes mellitus without complication, without long-term current use of insulin Dyslipidemia Other and unspecified hyperlipidemia documented in this encounter Care Teams Pre K Teacher Relationship Specialty Start Date End Date Peña Turner DO [address] [place] [address] PCP - General 05/13/10 07/21/21 documented as of this encounter
--- OUTSIDE RECORDS SUMMARY | 2024-06-12 14:16 | XMS_ITS | Encounter Summary ---
Author Organization [facility] [place] [address] Care Team Providers Care Corporate Communications Specialist Name Role Phone Peña Turner DO Primary Care Provider Reason for Referral * Diagnostic Test (Routine) - Closed Specialty Diagnoses / Procedures Referred By Contac t Referred To Contact Radiology Diagnoses Benign neoplasm of spinal cord Procedures MRI Lumbar Spine wo Contrast (Generic) Peña Turner DO [address] [place] [address] [place] [address] Referral ID Status Reason Start Date Expiration Date V isits Requested Visits Authorized [id number] Closed Specialty Service Requested 03/01/2020 08/28/2020 1 1 Reason for Visit * Diagnostic Test (Routine) - Closed Specialty Diagnoses / Procedures Referred By Contac t Referred To Contact Radiology Diagnoses Benign neoplasm of spinal cord Procedures MRI Lumbar Spine wo Contrast (Generic) Peña Turner DO [address] [place] [address] [place] [address] Referral ID Status Reason Start Date Expiration Date V isits Requested Visits Authorized [id number] Closed Specialty Service Requested 03/01/2020 08/28/2020 1 1 Encounter Details Date Type Department Care Team (Late st Contact Info) Description 03/22/2020 11:40 AM EDT - 03/22/2020 11:59 PM EDT Hospital [place] [phone] Peña Turner, DO [address] [place] [address] Benign neoplasm of spinal cord Discharge Disposition: Home Social History Tobacco Use [...] as of this encounter Progress Notes * Devora Zheng RN - 03/22/2020 7:21 AM EDT MRI PRE-SEDATION ASSESSMENT NOTE NAME: Pancho Edwards Skinny AGE: 55 y.o. : 1965 [address] [facility] [address] Male [phone] (home) [phone] (work) Telephone Information: Peña Turner, DO No primary care provider on file. No Known Allergies Date/Time of call: March 19, 2020/10:04 AM/ PREVIOUS MRI SCAN? Yes HEIGHT: 5'10 WEIGHT: 220 lbs SCHEDULED SCAN: MRI LUMBAR SPINE WITHOUT CONTRAST [[id number]] (40 mins, head first, supine) SUBJECTIVE: claustrophobic CAN YOU LAY FLAT? Yes AIRWAY/BREATHING ISSUES? No DO YOU HAVE ANY INVOLUNTARY MOVEMENTS? No DO YOU HAVE ANY PAIN? DO YOU TAKE PAIN MED ON A DAILY BASIS? None noted ASSESSMENT: Pt is appropriate for po sedation PLAN: Valium 5 mg PO x 2 (tme) You must have a trailer driver present when you check in. This patient has been informed that they require a trailer driver to drive them home after this procedure. In the absence of a trailer driver, IR will not be able to sedate for your scan. Pt verbalized understanding of these instructions during the pre-procedure education via phone. Yes X Miguel Barrera of trailer driver: Phone number PRIOR SCAN DATE/S ? SEDATION TYPE ?SUCCESSFUL 07/13/14 MRI L Spine wo Valium 5 mg P x 2 No. Per Tech: Patient very claustrophobic; needs IV sedatenext time. Scan was very difficult for patient 11/26/15 MRI Spine Valium 5 mg PO x 2 pt did great 11/18/15 MRI L-spine w/wo Valium 10 mg PO ?? 11/04/18 MRI Lumbar Spine Valium 5 mg PO x2 Yes 03/22/20 MRI Lumbar spine wo Valium 5 mg PO x2 Yes ? Revised 11/16/17 documented in this encounter [...] in context of the clinical situation (Reference- Jarvik Et Al, Spine 2001). Findings: (Prevalence in [...] the clinical situation (Reference- Sandik Et Al, [id number]). Findings: (Prevalence in patients without low back [...] documented in this encounter Visit Diagnoses Diagnosis Benign neoplasm of spinal cord documented in this encounter Administered Medications Inactive Administered Medications - up to 3 most recent administrations Medication Order MAR Action Action Date Dose Rate Site diazePAM (Valium) tablet 5 mg 5 mg, Oral, EVERY 30 MIN PRN, 2 doses, Starting on Wed03/22/20 at 0721, Until Wed03/22/20 at 1253, Anxiety, Angio/IR (Day of Procedure), Routine Given 03/22/2020 12:53 PM EDT 5 mg Given 03/22/2020 12:23 PM EDT 5 mg documented in this encounter Care Teams Corporate Communications Specialist Relationship Specialty Start Date End Date Peña Turner DO [address] [place] [address] PCP - General 05/13/10 07/21/21 documented as of this encounter
--- OUTSIDE RECORDS SUMMARY | 2024-06-12 14:16 | XMS_ITS | Encounter Summary ---
Author Organization Formerly [facility], Later [facility] Address [facility] [place] [address] Care Team Providers Care Extended Day Teacher Name Role Phone Peña Turner DO Primary Care Provider [phone] Encounter Details Date Type Department Care Team (Late st Contact Info) Description 08/12/2018 3:30 PM EST Office [place] [phone] Celso Raza MD [facility] [place] [address] Controlled type 2 diabetes mellitus without complication, [...] Sign Reading Time Taken Comments Blood Pressure 131/81 08/12/2018 3:11 PM EST Pulse 80 08/12/2018 3:11 PM EST Temperature - - Respiratory Rate - - Oxygen Saturation - - Inhaled Oxygen Concentration - - Weight 106.1 kg (233 lb 12.8 oz) 08/12/2018 3:11 PM EST Height 177.8 cm (5' 10) 08/12/2018 3:11 PM EST Body Mass Index 33.55 08/12/2018 3:11 PM EST documented in this encounter Patient Instructions * Patient Instructions* Celso Raza MD - 08/12/2018 3:30 PM EST Plan: - Recheck CT scan [...] Labs today for BMP, A1c, c-peptide, cortisol, ACTH. - For his DM/preDM, to start low dose metforminER 500 mg daily for 3-7 days and then increase to 1000 mg daily for 3-7 days and then 1,500 mg daily to help prevent further progression of preDM/diabetes (used to have A1c 6.8% in Jun 2015 and then 6.2-6.3% lately still high). Already doing his best on diet control and lost 15 lbs since 2015 and will try to do more exercise walking at least 20-30 mins daily. - Next lab test in a year spring - RTC 6 mo or earlier if needed. Celso Raza MD, PhD, FACE, FACP documented in this encounter Progress Notes * Celso Raza MD - 08/12/2018 3:30 PM EST Images from the original note were not included. ENDOCRINOLOGY FOLLOW-UP NOTE Patient Name: Aroldo Gunter : 1965 PCP: Dr. Turner Date : 08/12/2018 Reason for follow-up: HTN with low potassium levels - improved on spironolactone, and stable bilateral adrenal nodules on CT scan 04/24/16 and 05/20/17 History of Presenting Illness: This is a 53 y.o. male patient who initially presented to Endocrine clinic on 02/25/16 for low potassium, HTN and and bilateral adrenal nodules, seen by Dr. Ramírez in 2015 and was transferred under [facility] since 05/20/17. It is still unclear [...] Regarding T2DM, he is on diet control with much better A1c (down from 6.8 to 5.9-6.2% range) with wt down from 248 to 238 and now 233 lbs since last visit in October 2017. Last A1c 6.2% on 11/05/17 and he did not want to start taking metformin yet but recent A1c remained high 6.3% in May and will recheck lab today. We will need to recheck lab today for A1c, c-peptide, and BMP. Background history: Aroldo was diagnosed [...] Intradural schwanomma s/p surgery Current Medications: ??? spironolactone (ALDACTONE) 25 mg Tablet ??? amLODIPine (NORVASC) 5 mg Tablet ??? lisinopril (PRINIVIL;ZESTRIL) 20 mg Tablet ??? 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 Dad- DMT2 at age 80 yrs No FH adrenal, thyroid, parathyroid problems, no h/o early HTN Allergies: No Known Allergies Vitals Most Recent Vitals: 08/12/18 1511 BP: 131/81 Pulse: 80 Physical Exam: BP 131/81 Pulse 80 Ht 177.8 cm (5' 10) Wt 106.1 kg (233 lb 12.8 oz) BMI 33.55 kg/m?? Appearance: Patient is very pleasant white [...] ??Stable mild diffuse hepatic steatosis with hepatomegaly. Assessment: This is a 53 y.o. year old male patient with h/o HTN and hypokalemia associated with elevated aldosterone and low renin (borderline high ARR at 29, normal <30 after he was off lisinopril for 2 weeks) and CT scan showed bilateral small adrenal nodules of 10-16 mm He also has some features of metabolic syndrome given diet-controlled T2DM, HTN, BMI -34-35, although his HTN with h/o low K is likely due to endocrine cause I.e. primary hyper-aldosteronism (elevated aldosterone 38 with renin 1.3, high ARR 29) due to bilateral adrenal nodular hyperplasia and r/o Cushings syndrome with normal ACTH 21 with cortisol 13 in Feb 2016. Pt had a period of hypokalemia in October- December, which has since resolved with discontinuation of HCTZ.His K levels were entirely normal at 3.7-3.9 with good BP control when he went back on lisinopril with a low dose amlodipine. He does not have resistant HTN- currently [...] c-peptide, cortisol, ACTH and 25vitamin D. - For his DM/preDM, to start low dose metforminER 500 mg daily for 3-7 days and then increase to 1000 mg daily for 3-7 days and then 1,500 mg daily to help prevent further progression of preDM/diabetes (used to have A1c 6.8% in Jun 2015 and then 6.2-6.3% lately still high). Already doing his best on diet control and lost 15 lbs since 2016 and will try to do more exercise walking at least 20-30 mins daily. Addendum 08/15/18: the pending lab for vitamin D at recent visit was low at 19 (normal 30-100). So, pt should take vitamin-D 50,000 iu weekly as prescribed and will recheck lab in 6 mo. - Next lab test at next visit for A1c, BMP, c-peptide and 25vitamin D. - RTC 6 mo or earlier if needed. Celso Raza MD, PhD, FACE, FACP documented in this encounter Miscellaneous Notes * Addendum Note - Haritha Mccarthy - 08/12/2018 3:30 PM ESTAddended by: HARITHA MCCARTHY on: 08/12/2018 04:21 PM Modules accepted: Orders * Addendum Note - Celso Raza MD - 08/12/2018 3:30 PM ESTAddended by: CELSO RAZA on: 08/14/2018 02:55 PM Modules accepted: Orders * Addendum Note - Celso Raza MD - 08/12/2018 3:30 PM ESTAddended by: CELSO RAZA on: 08/15/2018 07:27 PM Modules accepted: Orders documented in this encounter Plan of Treatment Not on file documented as of this encounter Procedures Procedure Name Priority Date/Time Associated Diagnosis Comments VITAMIN D, 25-HYDROXY Routine 08/12/2018 4:41 PM EST C-PEPTIDE Routine 08/12/2018 4:41 PM EST Controlled type 2 diabetes mellitus without complication, without long-term current use of insulin ACTH Routine 08/12/2018 4:41 PM EST Controlled type 2 diabetes mellitus without complication, without long-term current use of insulin Adrenal adenoma, unspecified laterality HEMOGLOBIN A1C Routine 08/12/2018 4:41 PM EST Hyperaldosteronism 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 CORTISOL Routine 08/12/2018 4:41 PM EST Controlled type 2 diabetes mellitus without complication, without long-term current use of insulin Adrenal adenoma, unspecified laterality BASIC METABOLIC PANEL Routine 08/12/2018 4:41 PM EST Hyperaldosteronism 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 documented in this encounter Results * Basic Metabolic Panel (non-fasting) (02/21/2019 1:05 PM EDT) Glucose 114 65 - 199 mg/dL [facility] Comment:Diabetes: >=200 mg/d L plus symptoms Blood Urea Nitrogen 14 10 - 20 mg/dL [facility] Creatinine 0.90 0.80 - 1.50 mg/dL [facility] Sodium 142 135 - 145 mmol/L [facility] Potassium 4.1 3.5 - 5.0 mmol/L [facility] Comment: Please note: ??Patients with WBC >100,000 may have falsely elevated Potassium levels. ??For accurate Potassium quantification in these patients send serum separator tube (gold top) for subsequent determinations. ??Contact the Clinical Chemistry Laboratory if there are any questions. Chloride 107 98 - 107 mmol/L [facility] Carbon Dioxide 24 22 - 31 mmol/L [facility] Anion Gap 11 5 - 15 mmol/L [facility] Calcium 9.3 8.5 - 10.5 mg/dL [facility] Est Glomerular Filtration Rate 96 >=60 mL/min/1. 73 m?? [facility] Comment: The eGFR was calculated using the CKD-EPI equation. As with all creatinine based estimates of kidney function, eGFR values calculated with the CKD-EPI equation are not accurate in patients with acute kidney failure, extremes of body mass or the acutely ill. http://[employer]/[facility] SEILINGnkf eGFR 112 >=60 mL/min/1. 73 m?? [facility] Comment: The eGFR was calculated using the CKD-EPI equation. As with all creatinine based estimates of kidney function, eGFR values calculated with the CKD-EPI equation are not accurate in patients with acute kidney failure, extremes of body mass or the acutely ill. http://[employer]/[facility]ILINGnkf Blood specimen (specimen) 02/21/2019 1:05 PM EDT 02/21/2019 1:15 PM EDT Narrative Resulting Agency Comment Spec In Lab Celso Raza MD CHEMISTRY ORDERAB LES [facility] [place] [address] * Vitamin D, 25-Hydroxy (02/21/2019 1:05 PM EDT) Vitamin D Total 25 OH 56 30 - 100 ng/mL [facility] Comment: Deficient <10 ng/mL Insufficient 10 to 29 ng/mL Sufficient 30 to 100 ng/mL Potential Intoxication >100 ng/mL According to the US National Osteoporosis Foundation, Vitamin D concentrations >30 ng/mL are sufficient to protect bone health. ??The National Kidney Foundation has similarly stated that patients with Vitamin D concentrations <30ng/mL should be considered to be insufficient or deficient. http://[employer]/nkf-guidelines http://[employer]/nejm-VitD The [employer] Vitamin D Immunoassay detects both 25-OH Vitamin D2 and 25-OH Vitamin D3, but only a total Vitamin D concentration is reported. Blood specimen (specimen) 02/21/2019 1:05 PM EDT 02/22/2019 7:54 AM EDT Narrative Resulting Agency Comment Spec In Lab Celso Raza MD CHEMISTRY ORDERAB LES Performing Organization Address City/[facility]/ZIP Co de Phone Number [facility] [place] [address] * (ABNORMAL) C-peptide (02/21/2019 1:05 PM EDT) C-Peptide 5.8(H) 0.8 - 5.2 ng/mL [facility] Blood specimen (specimen) 02/21/2019 1:05 PM EDT 02/21/2019 1:15 PM EDT Narrative Resulting Agency Comment Spec In Lab Celso Raza MD CHEMISTRY ORDERAB LES Performing Organization Address City/[facility]/ZIP Co de Phone Number [facility] [place] [address] * Hemoglobin A1c (02/21/2019 1:05 PM EDT) Hemoglobin A1c 5.2 4.3 - 5.6 % [facility] Comment: Reference Range: 4.3 - 5.6% [...] Mellitus, Diabetes Care 2013; 36: Suppl. 1, H97-56 Estimated Average Glucose 103 mg/dL [facility] Comment: eAG equivalents for HbA1c percentages: [...] into estimated average glucose values. ??Diabetes Care 2008:31(8):7950-0727. Blood specimen (specimen) 02/21/2019 1:05 PM EDT 02/21/2019 1:15 PM EDT Narrative Resulting Agency Comment Spec In Lab Celso Raza MD CHEMISTRY ORDERAB LES [facility] [place] [address] * (ABNORMAL) Vitamin D, 25-Hydroxy (08/12/2018 4:41 PM EST) Pathologist [facility] Vitamin D Total 25 OH 19(L) 30 - 100 ng/mL [facility] Comment: Deficient <10 ng/mL Insufficient 10 to 29 ng/mL Sufficient 30 to 100 ng/mL Potential Intoxication >100 ng/mL According to the US National Osteoporosis Foundation, Vitamin D concentrations >30 ng/mL are sufficient to protect bone health. ??The National Kidney Foundation has similarly stated that patients with Vitamin D concentrations <30ng/mL should be considered to be insufficient or deficient. http://[employer]/nkf-guidelines http://[employer]/nejm-VitD The [employer] i[employer] Vitamin D Immunoassay detects both 25-OH Vitamin D2 and 25-OH Vitamin D3, but only a total Vitamin D concentration is reported. Blood specimen (specimen) Venous Draw / Unknown 08/12/2018 4:41 PM EST 08/15/2018 8:12 AM EST Narrative Resulting Agency Comment Spec In Lab Celso Raza MD CHEMISTRY ORDERAB LES [facility] [place] [address] * (ABNORMAL) Hemoglobin A1c (08/12/2018 4:41 PM EST) [facility] Hemoglobin A1c 6.0(H) 4.3 - 5.6 % [facility] Comment: Reference Range: 4.3 - 5.6% [...] Mellitus, Diabetes Care 2013; 36: Suppl. 1, Y27-58 Estimated Average Glucose 126 mg/dL [facility] Comment: eAG equivalents for HbA1c percentages: [...] into estimated average glucose values. ??Diabetes Care 2008:31(8):8287-8380. Blood specimen (specimen) 08/12/2018 4:41 PM EST 08/12/2018 5:00 PM EST Narrative Resulting Agency Comment Spec In Lab Celso Raza MD CHEMISTRY ORDERAB LES [facility] [place] [address] * (ABNORMAL) Basic Metabolic Panel (non-fasting) (08/12/2018 4:41 PM EST) Glucose 108 65 - 199 mg/dL [facility] Comment:Diabetes: >=200 mg/d L plus symptoms Blood Urea Nitrogen 19 10 - 20 mg/dL [facility] Creatinine 1.07 0.80 - 1.50 mg/dL [facility] Sodium 147(H) 135 - 145 mmol/L [facility] Potassium 4.1 3.5 - 5.0 mmol/L [facility] Comment: Please note: ??Patients with WBC >100,000 may have falsely elevated Potassium levels. ??For accurate Potassium quantification in these patients send serum separator tube (gold top) for subsequent determinations. ??Contact the Clinical Chemistry Laboratory if there are any questions. Chloride 108(H) 98 - 107 mmol/L [facility] Carbon Dioxide 24 22 - 31 mmol/L [facility] Anion Gap 15 5 - 15 mmol/L [facility] Calcium 9.8 8.5 - 10.5 mg/dL [facility] Est Glomerular Filtration Rate 78 >=60 mL/min/1. 73 m?? [facility] Comment: The eGFR was calculated using the CKD-EPI equation. As with all creatinine based estimates of kidney function, eGFR values calculated with the CKD-EPI equation are not accurate in patients with acute kidney failure, extremes of body mass or the acutely ill. http://[employer] eGFR 91 >=60 mL/min/1. 73 m?? [facility] Comment: The eGFR was calculated using the CKD-EPI equation. As with all creatinine based estimates of kidney function, eGFR values calculated with the CKD-EPI equation are not accurate in patients with acute kidney failure, extremes of body mass or the acutely ill. http://[employer]/DHnkf Blood specimen (specimen) 08/12/2018 4:41 PM EST 08/12/2018 5:00 PM EST Narrative Resulting Agency Comment Spec In Lab Celso Raza MD CHEMISTRY ORDERAB LES [facility] [place] [address] * ACTH (08/12/2018 4:41 PM EST) ACTH 15 6 - 50 pg/mL [facility] Comment: Reference range applies only to specimens collected between 7am-10am. Test Performed by [employer], [employer] [facility], [address] [place] [address] Bennett Carranza M.D., Ph.D., Director of Laboratories , CLIA [id number] Blood specimen (specimen) 08/12/2018 4:41 PM EST 08/15/2018 10:35 AM EST Narrative Resulting Agency Comment Spec In Lab Celso Raza MD LAB SEND OUT ORDE SUJATA Performing Organization Address City/[facility]/ZIP Co de Phone Number [facility] [place] [address] * Cortisol (08/12/2018 4:41 PM EST) Cortisol 4.7 mcg/dL [facility] Comment: Reference ranges: ??AM (6-10am): ??4.8-19.5 mcg/dL ??PM (4-8pm) : ??2.5-11.9 mcg/dL Blood specimen (specimen) 08/12/2018 4:41 PM EST 08/12/2018 5:00 PM EST Narrative Resulting Agency Comment Spec In Lab Celso Raza MD CHEMISTRY ORDERAB LES Performing Organization Address City/[facility]/ZIP Co de Phone Number [facility] [place] [address] * (ABNORMAL) C-peptide (08/12/2018 4:41 PM EST) C-Peptide 8.2(H) 0.8 - 5.2 ng/mL [facility] Blood specimen (specimen) 08/12/2018 4:41 PM EST 08/12/2018 5:00 PM EST Narrative Resulting Agency Comment Spec In Lab Celso Raza MD CHEMISTRY ORDERAB LES Performing Organization Address [facility] Co de Phone Number [facility] [place] [address] documented in this encounter Visit Diagnoses Diagnosis Controlled type 2 diabetes mellitus without complication, without long-term current use of insulin Adrenal adenoma, unspecified laterality Hyperaldosteronism Hyperaldosteronism, unspecified 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 Hyperaldosteronism, unspecified Vitamin D deficiency Unspecified vitamin D deficiency documented in this encounter Care Teams Extended Day Teacher Relationship Specialty Start Date End Date Peña Turner DO [address] [facility] [address] [place] [address] PCP - General 05/13/10 07/21/21 documented as of this encounter
--- OUTSIDE RECORDS SUMMARY | 2024-06-12 14:16 | XMS_ITS | Encounter Summary ---
Author Organization Formerly [facility] Address [facility] [place] [address] Care Team Providers Care Locomotive Operator Helper Name Role Phone Peña Turner DO Primary Care Provider [phone] Encounter Details Date Type Department Care Team (Late st Contact Info) Description 02/03/2021 9:25 PM EDT Ancillary Procedure Radiology Library at [facility] [place] [place] [id number] Peña Turner DO [address] [address] [place] [address] Social History Tobacco Use Types Packs/Day Years [...] Associated Diagnosis Comments FILM LIBRARY STORAGE ONLY MR ABDOMEN Routine 02/03/2021 9:23 PM EDT documented in this encounter Results * Film Library- Storage Only MR Abdomen (02/03/2021 9:23 PM EDT) Narrative KENNY BULLOCK - 02/03/2021 9:23 PM EDT This exam is auto-finalizing. It's purpose is for storage only. Peña Turner DO IMG FILM LIBRARY ORD ERABLES [place], [place] documented in this encounter Visit Diagnoses Not on filedocumented in this encounter Care Teams Locomotive Operator Helper Relationship Specialty Start Date End Date Peña Turner DO [address] [facility] [address] [place] [address] PCP - General 05/13/10 07/21/21 documented as of this encounter
--- OUTSIDE RECORDS SUMMARY | 2024-06-12 14:16 | XMS_ITS | Encounter Summary ---
Author Organization [facility] Address [facility] [place] [address] Care Team Providers Care Case Fitter Name Role Phone Peña Turner DO Primary Care Provider [phone] Reason for Visit * Reason Comments Follow-up Patient is here toda y for a 6 month follow up. 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 ENDOCRINOLOGY OUTPATIENT FOLLOW-UP Patient Name: Aroldo Gunter Date of Consultation: 11/09/2017 Consulting Physician: Dr. Turner Reason for Consultation: HTN with low potassium levels - improvement on spironolactone, and bilateral adrenal nodules on CT scan 04/24/16 History of Presenting Illness: This is a 52 y.o. male patient who presents to clinic for low potassium levels and HTN and and bilateral adrenal nodules, used to see Dr. Ramírez in 2016 and is now transferred under my care directlysince 05/20/17 Phone note: Lebron Silva, please tell pt that outside lab showed normal K at 3.7, same as 05/20/17 (normal 3.5-5.0).So, pt should take the same dose of spironolactone as prescribed. Will see him again with qd lab on11/09/16 as scheduled. ThanksCelso It is still unclear if B/L adrenal nodules are truly hyperfunctioning or not since ARR is borderline at 29 (normal <30) and BP is under controlled with lisinopril 20 mg, spirolactone 25 mg qd/bid,and norvasc 5 mg qd. We would avoid adrenal venous sampling, continue current BP regimen. If pt has high BP or low K levels, so we started mineralocorticoid receptor antagonist (spironolactone) which will also help raiseK levels. Would do AVS only in future if has severe HTN difficult to control even with spirinolactone. F/U adrenal CT after 1 year on 05/20/17 showed no changes Given mild HTN, normal K with lisinopril and risks of B/L adrenal venous sampling, ok to continue BP management as above. Will wait to do CT scan 2-5 yrs. Regarding T2DM, he is on diet control with much better A1c (down from 6.8 to 5.9-6.2% range) and wtdown from 248 to 240 and now 238 lbs over a year A1c. It's good news that his A1c is ok at 6.2% last Wed11/05/17 not too far off and he does not want to start taking metformin yet. Background history: Aroldo was diagnosed with HTN ~2 years ago. He was started on HCTZ and lisinopril initially with 10 meQ K ( > 6 months) daily, then norvasc was added. His BP [...] in veggies. No laxative use At his previous visit on 02/2016, we had checked Gordon and renin levels, gordon- 22, renin- 2.6. ARR was 8. Since lisinopril can lower aldosterone levels, we decided to hold lisinopril for 2 weeks and recheck ARR. This was done at OSH 03/17/2016 Gordon- 38 Renin- 1.3 ARR- 29 (This is < 30 which is the endo society cutt off for primary hyperaldosteronism) He has stopped his potassium since the past month since he has experienced some bloating sensation which he attributed to potassium. 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 Dad- DMT2 at age 80 yrs No FH adrenal, thyroid, parathyroid problems, no h/o early HTN Allergies: No Known Allergies Vitals Most Recent Vitals: 11/09/17 1326 BP: 131/89 Pulse: 63 SpO2: 97% Physical Exam: BP 131/89 (BP Location (NBP): Left arm, Patient Position: Sitting, BP Cuff Sizes: Large Adult (32-43 cm)) Pulse 63 Ht 177.8 cm (5' 10) Wt 108 kg (238 lb) Comment: Patient reported SpO2 97% BMI 34.15 kg/m2 Appearance: Patient is very pleasant white female, [...] sensation was intact Pertinent Laboratory Findings: Lab 11/18 12/04 12/31 11/05 Na 113 145 K 3.2 3.3 3.4 4.3 Cl 104 102 Bicarb 28 27 AG 10 BUN 21 Cr 1.15 0.96 1.02 EGFR >60 Ca 9.0 Glucose 111 (fasting but had coffee with cream and honey) A1c 6.8%(H) 6.2% (H) Results for AROLDO GUNTER ( ) [...] interpretation and agree with the findings, Aniket Meidna at 04/24/2016 Repeat lab on 05/20/17 showed [...] steatosis with hepatomegaly. Assessment: This is a 52 y.o. year old male patient with h/o [...] BP is higher. - Also checked Labs last Wed11/05/16 for BMP and A1c. - Next lab test in a year (renin and aldosterone, so ARR should not be high while taking lisinopriland we will not need to check lab while he is on spironolactone) - RTC 12 mo or earlier if needed. Celso Raza MD, PhD, FACE, FACP documented in this encounter Plan of Treatment Not on file documented as of this encounter Results * (ABNORMAL) Basic Metabolic Panel (non-fasting) (08/12/2018 4:41 PM EST) Glucose 108 65 - 199 mg/dL [facility] Comment:Diabetes: >=200 mg/d L plus symptoms Blood Urea Nitrogen 19 10 - 20 mg/dL [facility] Creatinine 1.07 0.80 - 1.50 mg/dL [facility] Sodium 147(H) 135 - 145 mmol/L [facility] Potassium 4.1 3.5 - 5.0 mmol/L [facility] Comment: Please note: ??Patients with WBC >100,000 may have falsely elevated Potassium levels. ??For accurate Potassium quantification in these patients send serum separator tube (gold top) for subsequent determinations. ??Contact the Clinical Chemistry Laboratory if there are any questions. Chloride 108(H) 98 - 107 mmol/L [facility] Carbon Dioxide 24 22 - 31 mmol/L [facility] Anion Gap 15 5 - 15 mmol/L [facility] Calcium 9.8 8.5 - 10.5 mg/dL [facility] Est Glomerular Filtration Rate 78 >=60 mL/min/1. 73 m?? [facility] Comment: The eGFR was calculated using the CKD-EPI equation. As with all creatinine based estimates of kidney function, eGFR values calculated with the CKD-EPI equation are not accurate in patients with acute kidney failure, extremes of body mass or the acutely ill. http://[employer]/[facility] OKLAH[facility] CITYnkf eGFR 91 >=60 mL/min/1. 73 m?? [facility] Comment: The eGFR was calculated using the CKD-EPI equation. As with all creatinine based estimates of kidney function, eGFR values calculated with the CKD-EPI equation are not accurate in patients with acute kidney failure, extremes of body mass or the acutely ill. http://[employer]/[facility]nkf Blood specimen (specimen) 08/12/2018 4:41 PM EST 08/12/2018 5:00 PM EST Narrative Resulting Agency Comment Spec In Lab Celso Raza MD CHEMISTRY ORDERAB LES [facility] [place] [address] * (ABNORMAL) Hemoglobin A1c (08/12/2018 4:41 PM EST) Hemoglobin A1c 6.0(H) 4.3 - 5.6 % [facility] Comment: Reference Range: 4.3 - [...] Mellitus, Diabetes Care 2013; 36: Suppl. 1, K07-28 Estimated Average Glucose 126 mg/dL [facility] Comment: eAG equivalents for HbA1c [...] into estimated average glucose values. ??Diabetes Care 2008:31(8):8651-1265. 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
--- OUTSIDE RECORDS SUMMARY | 2024-06-12 14:16 | XMS_ITS | Encounter Summary ---
Author Organization [facility] [place] [place] [address] Care Team Providers Care Valve Fitter Name Role Phone JohnnyPeña moreira Primary Care Provider Encounter Details Date Type Department Care Team (Late st Contact Info) Description 06/24/2017 External Results [place] [address] Celso Raza MD [facility] [place] [address] Hyperaldosteronism Social History Tobacco Use Types Packs/Day Years [...] Procedure Name Priority Date/Time Associated Diagnosis Comments POTASSIUM Routine 06/08/2017 Hyperaldosteronism documented in this encounter Results * (ABNORMAL) Potassium (06/08/2017) Potassium 3.7(Externa l Lab) Blood specimen (specimen) 06/08/2017 Celso Raza MD CHEMISTRY ORDERAB LES documented in this encounter Visit Diagnoses Diagnosis Hyperaldosteronism Hyperaldosteronism, unspecified documented in this encounter Care Teams Valve Fitter Relationship Specialty Start Date End Date Peña Turner DO [address] [place] [address] PCP - General 05/13/10 07/21/21 documented as of this encounter
--- OUTSIDE RECORDS SUMMARY | 2024-06-12 14:17 | XMS_ITS | Encounter Summary ---
Author Organization [facility] Address [address] [place] [address] Care Team Providers Care Surgical Elastic Knitter Name Role Phone Unknown Primary Care Provider Unavailabl e Encounter Details Date Type Department Care Team (Late st Contact Info) Description 08/20/2009 Orders Only Dermatology at [facility] [address] [place] [address] Eddie Ruiz III, MD Social History Tobacco Use Types Packs/Day [...] Associated Diagnosis Comments SURGICAL PATHOLOGY REPORT Routine 08/20/2009 3:09 PM EST documented in this encounter Results * Surgical Pathology Report (08/20/2009 3:09 PM EST) Surgical Pathology Report [id number] ? Location: [facility] The signing pathologist has (i) examined the relevant preparation(s) for the specimen(s) and (ii) rendered or confirmed the diagnosis(es). . ?Pathology Surgical Pathology Final Report Clinical Information Specimen Submitted: A - (R) zygoma, shave Clinical History: Pearly papule, R zygoma, ? enlarging Clinical Diagnosis: IDN, r/o BCC Gross Description Labeled/Fixative: ? Labeled with the patient's name, formalin. Qty/Size/Weight: ?Single shave, 0.3 cm, pink-riojas skin. Sections/Processing : ??(T1) ?jlk/EJR Microscopic Description Slides reviewed, microscopic description not recorded. Diagnosis Skin of right zygoma, shave biopsy: ??Compound nevus, ??present at the base of the biopsy specimen. CR-0 Dictated by: ?? Sal Miller MD ? Dermatopathology Fellow As the attending physician, I attest that I examined the histologic slides, and confirm Dr. Sal Miller's diagnosis. 08/21/09 DGW 08/22/09 Verified by: ? Norm TODD, Leno Edwards ?Dermatopathologis t ?(Electronic Signature) The attending pathologist whose signature appears on this report has reviewed all diagnostic slides and has edited the gross and/or microscopic portion of the report in rendering the final pathologic diagnosis. FERNANDO HARDY 08/20/2009 3:09 PM EST Eddie Ruiz III, MD PATHOLOGY/CYTOL OGY ORDERABLES Performing Organization Address City/State/[facility] Co de Phone Number FERNANDO HARDY documented in this encounter Visit Diagnoses Not on filedocumented in this encounter Care Teams Surgical Elastic Knitter Relationship Specialty Start Date End Date Unknown None PCP - General 04/28/22 documented as of this encounter
--- OUTSIDE RECORDS SUMMARY | 2024-06-12 14:17 | XMS_ITS | Encounter Summary ---
Author Organization [facility] Address [address] [facility] [place] [address] Care Team Providers Care Ceo And Co Founder Name Role Phone JohnnyPeña moreira Primary Care Provider [phone] Encounter Details Date Type Department Care Team (Late st Contact Info) Description 08/28/2014 Interpretation Only Radiology [address] [facility] [place] [id number] Unknown None Social History Tobacco Use Types Packs/Day Years Used Date Smoking Tobacco: Never Assessed Sex and Gender Information Value Date Recorded Sex Assigned at Not on file Gender Identity Not on file Sexual Orientation Not on file documented as of this encounter Plan of Treatment Not on file documented as of this encounter Procedures Procedure Name Priority Date/Time Associated Diagnosis Comments XR FLUORO NO RAD <1HR - RADIOLOGY USE Routine 08/28/2014 6:38 AM EDT documented in this encounter Results * XR Fluoro <1Hr - Radiology Use (08/28/2014 6:38 AM EDT) Anatomical Region Laterality Modality N/A Radiographic Neha ging 08/28/2014 6:38 AM EDT Narrative 08/28/2014 6:38 AM EDT APD Historical Result Principal Paint Trimmer Pipe Bowls: ??KELSEY ??MOLINA C-ARM: HISTORY: ??T12/L2 laminectomies for tumor. COMPARISON: ??Outside MRI from [facility] in [place], [place], dated, July 13, 2014. FINDINGS: Fluoroscopy was provided for Dr Reagan. ??No Radiologist was present for the procedure. ??Two image-intensifier images were archived to PACS. Radiopaque instruments project in the posterior soft tissues at the level of L3 as well as L4 and inferior L2 on the 2 submitted images. Please refer to separate procedure report. ??Total fluoro time equals 33.9 seconds. ??The estimated cumulative dose is 3.07 mrad. Kelsey Molina MD Иван [id number] CC: Procedure Note Unknown - 12/19/2018 APD Historical Result Principal Paint Trimmer Pipe Bowls: KELSEY MOLINA C-ARM: HISTORY: T12/L2 laminectomies for tumor. COMPARISON: Outside MRI from [place], [place], dated, July 13, 2014. FINDINGS: Fluoroscopy was provided for Dr Reagan. No Radiologist was present for theprocedure. Two image-intensifier images were archived to PACS. Radiopaque instrumentsproject in the posterior soft tissues at the level of L3 as well as L4 and inferior L2 on the 2 submittedimages. Please refer to separate procedure report. Total fluoro time equals 33.9 seconds. Theestimated cumulative dose is 3.07 mrad. Kelsey Molina MD Иван [id number] CC: Unknown IMG FLUORO ORDERABLE S documented in this encounter Visit Diagnoses Not on filedocumented in this encounter Care Teams Ceo And Co Founder Relationship Specialty Start Date End Date Peña Turner DO [address] [place] [address] PCP - General 05/13/10 07/21/21 documented as of this encounter
--- OUTSIDE RECORDS SUMMARY | 2024-06-12 14:17 | XMS_ITS | Encounter Summary ---
Author Organization [facility] Address [facility] [place] [address] Care Team Providers Care Acquisition Professional Name Role Phone Unknown Primary Care Provider Unavailabl e Encounter Details Date Type Department Care Team (Late st Contact Info) Description 09/10/2009 Orders [place] [address] Kevin Stockton MD [facility] [place] [address] Social History Tobacco Use Types Packs/Day Years [...] Associated Diagnosis Comments SURGICAL PATHOLOGY REPORT Routine 09/10/2009 10:19 AM EDT documented in this encounter Results * Surgical Pathology Report (09/10/2009 10:19 AM EDT) Surgical Pathology Report [id number] ? Location: The signing pathologist has (i) examined the relevant preparation(s) for the specimen(s) and (ii) rendered or confirmed the diagnosis(es). . ?Pathology Surgical Pathology Final Report Clinical Information Specimen Submitted: A - Lid lesion, excision: Clinical History: Lid lesion present x 2 years Clinical Diagnosis: Lid lesion Gross Description Labeled/Fixative: ? Labeled with the patient's name, formalin. Qty/Size/Weight: ?Single papule, 0.2 x 0.2 cm, riojas-pink. Sections/Processing : ??(T1) ??aje/SNS Microscopic Description Slides reviewed, microscopic description not recorded. Diagnosis Skin of lid, excision: ?? Skin tag. CR-0 Dictated by: ?? Sal Miller MD ? Dermatopathology Fellow As the attending physician, I attest that I examined the histologic slides, and confirm Dr. Sal Miller's diagnosis. 09/11/09 DGW 09/12/09 Verified by: ? Regino TODD, PhD, [facility] ?Dermatopathologis t ?(Electronic Signature) The attending pathologist whose signature appears on this report has reviewed all diagnostic slides and has edited the gross and/or microscopic portion of the report in rendering the final pathologic diagnosis. FERNANDO UMANZORCONNER 09/10/2009 10:1 9 AM EDT Kevin Stockton MD PATHOLOGY/CYTOLOGY Lilia BEAUCHAMP Performing Organization Address City/State/[facility] Co mt Phone Number [facility] documented in this encounter Visit Diagnoses Not on filedocumented in this encounter Care Teams Acquisition Professional Relationship Specialty Start Date End Date Unknown None PCP - General 04/28/22 documented as of this encounter
--- OUTSIDE RECORDS SUMMARY | 2024-06-12 14:17 | XMS_ITS | Encounter Summary ---
[place] [address] Care Team Providers Care Commercial Sheet Metal Foreman Name Role Phone Peña Turner DO Primary Care Provider [phone] Reason for Referral * Diagnostic Test (Routine) - Closed Specialty Diagnoses / Procedures Referred By Contac t Referred To Contact Radiology Diagnoses Schwannoma Procedures MRI Lumbar Spine wwo Contrast Michael Reagan MD [address] [place] [address] [place] [address] Referral ID Status Reason Start Date Expiration Date V isits Requested Visits Authorized Closed Specialty Service Requested 10/27/2016 01/25/2017 1 1 Reason for Visit * Diagnostic Test (Routine) - Closed Specialty Diagnoses / Procedures Referred By Contac t Referred To Contact Radiology Diagnoses Schwannoma Procedures MRI Lumbar Spine wwo Contrast Michael Reagan MD [address] [place] [address] [place] [address] Referral ID Status Reason Start Date Expiration Date V isits Requested Visits Authorized Closed Specialty Service Requested 10/27/2016 01/25/2017 1 1 Encounter Details Date Type Department Care Team (Latest Contact Info) Description 11/17/2016 3:35 PM EDT [place] [address] Michael Reagan MD Schwannoma Discharge Disposition: Home Social History Tobacco Use Types Packs/Day Years Used Date Smoking Tobacco: Never Alcohol Use Standard Drinks/Week Comments [...] 20 mg by mouth daily. amLODIPine (NORVASC) 2.5 mg Tablet Take 2.5 mg by mouth daily. 05/20/2017 potassium chloride (K-DUR/KLOR-CON) 10 mEq Tablet Sustained Release Take 10 mEq by mouth daily. 05/20/2017 aspirin 81 mg Tablet, Delayed Release (E.C.) Take 81 mg by mouth daily. 03/26/2021 documented as of this encounter Progress Notes * Deepika Santana RN - 11/11/2016 2:50 PM EDT MRI PRE-SEDATION ASSESSMENT NOTE NAME: Pancho Babb AGE: 51 y.o. : 1965 [address] [facility] [address] Male [phone] (home) Telephone Information: Peña Turner, No primary care provider on file. No Known Allergies Date/Time of call: November 11, 2016/2:50 PM/ PREVIOUS MRI SCAN? Yes HEIGHT: 5' 10 WEIGHT: 245 # SCHEDULED SCAN: MRI Lumbar Spine W/WO - 40 minutes, feet first, supine SUBJECTIVE: I am claustrophobic. CAN YOU LAY FLAT? Yes AIRWAY ISSUES? No DO YOU HAVE ANY INVOLUNTARY MOVEMENTS? (explain) No DO YOU HAVE ANY PAIN? No DO YOU TAKE PAIN MED ON A DAILY BASIS? No ASSESSMENT: Good candidate for PO sedation. PLAN: Valium 5-10 mg PO Guidelines for MRI Pre-Procedures Laboratory Studies: GFR Date of lab draw 1. Creatinine studies (GFR level needed) within 90 days of scan ??? 70 yo or older if they are getting contrast ??? 50 years and older if they are diabetic and getting contrast ( MB ) You must have a train driver present when you check in. This patient has been informed that they require a train driver to drive them home after this procedure. In the absence of a train driver, IR will not be able to sedate for your scan. Pt verbalized understanding of these instructions during the pre-procedure education via phone. Yes Name of train driver: Hawa Phone number PRIOR SCAN DATE/S SEDATION TYPE SUCCESSFUL 07/13/14 MRI L Spine wo Valium 5 mg x 2 po No. Per Tech: Patient very claustrophobic; needs IV sedate next time. Scan was very difficult for patient 11/26/15 MRI Spine Valium 5mg PO x2 pt did great 11/18/15 MRI L-spine w/wo Valium 10 mg po ? Revised 07/05/15 documented in this encounter Plan of Treatment Not on file documented as of this encounter Procedures Procedure Name Priority Date/Time Associated Diagnosis Comments MRI LUMBAR SPINE WITH/WO CONTRAST Routine 11/17/2016 5:43 PM EDT Schwannoma documented in this encounter Results * MRI Lumbar Spine wwo Contrast (11/17/2016 5:43 PM EDT) Anatomical Region Laterality Modality L-spine Magnetic Resonan ce Impressions 11/18/2016 9:49 AM EDT Similar appearance of lumbar spine degenerative changes. No evidence of recurrent neoplasm. Comment: The following findings are so common in people without low back pain that while we report their presence, they must be interpreted with caution and in context of the clinical situation (Reference- Sandik et al, Spine 2001). Findings: (Prevalence in patients without low back pain), disc degeneration (decreased T2 signal, height loss, bulge) (91%), disc T2-signal loss (83%), disc height loss (56%), disc bulge (64%), disc protrusion (32%), annular fissure (38%). Narrative 11/18/2016 9:49 AM EDT EXAMINATION: MRI LUMBAR SPINE WWO CONTRAST CLINICAL HISTORY: back pain, annual evaluation of spinal tumor, S/P T12-L2 laminectomies for tumor (August 2014) TECHNIQUE: MR of the lumbar spine performed prior to and following intravenous administration of 10 mL Gadavist COMPARISON: 11/26/2015, 07/13/2014 FINDINGS: Alignment of the lumbar spine is normal, and unchanged compared to the prior exam. There is no focal, aggressive appearing marrow lesion. Laminectomy changes at L1 are unchanged compared to the most recent previous study. The conus remains normal in appearance. There is no recurrent intradural mass. There is no abnormal intrathecal enhancement. Findings at specific levels: L1-L2: There is loss disc height with anterior osteophytes. There is enhancement throughout the disc, without significant change compared to the prior study. No more than mild foraminal narrowing. No central canal stenosis. L2-L3: Disc bulging and facet arthropathy contribute to mild to moderate left foraminal narrowing. There is no central canal stenosis. L3-L4: There is bilateral facet arthropathy and mild disc bulging with minor caudal foraminal narrowing. No central canal stenosis. L4-L5: There is disc bulging with a central annular fissure. Facet arthropathy and endplate osteophyte contribute to mild bilateral foraminal narrowing. L5-S1: There are bilateral facet degenerative changes, and bilateral pars fractures of malalignment. There is mild left foraminal narrowing. No central canal stenosis. Procedure Note Tato Owen MD - 11/18/2016 EXAMINATION: MRI LUMBAR SPINE WWO CONTRAST CLINICAL HISTORY: back pain, annual evaluation of spinal tumor, S/PT12-L2 laminectomies for tumor (August 2014) TECHNIQUE: MR of the lumbar spine performed prior to and followingintravenous administration of 10 mL Gadavist COMPARISON: 11/26/2015, 07/13/2014 FINDINGS: Alignment of the lumbar spine is normal, and unchanged comparedto the prior exam. There is no focal, aggressive appearing marrow lesion.Laminectomy changes at L1 are unchanged compared to the most recent previous study.The conus remains normal in appearance. There is no recurrent intradural mass.There is no abnormal intrathecal enhancement. Findings at specific levels: L1-L2: There is loss disc height with anterior osteophytes. There isenhancement throughout the disc, without significant change compared to the priorstudy. No more than mild foraminal narrowing. No central canal stenosis. L2-L3: Disc bulging and facet arthropathy contribute to mild to moderateleft foraminal narrowing. There is no central canal stenosis. L3-L4: There is bilateral facet arthropathy and mild disc bulging withminor caudal foraminal narrowing. No central canal stenosis. L4-L5: There is disc bulging with a central annular fissure. Facetarthropathy and endplate osteophyte contribute to mild bilateral foraminalnarrowing. L5-S1: There are bilateral facet degenerative changes, and bilateralpars fractures of malalignment. There is mild left foraminal narrowing. Nocentral canal stenosis. IMPRESSION Similar appearance of lumbar spine degenerative changes. No evidence of recurrent neoplasm. Comment: The following findings are so common in people without low backpain that while we report their presence, they must be interpreted with cautionand in context of the clinical situation (Reference- Neshavik et al, [id number]). Findings: (Prevalence in patients without low back pain), discdegeneration (decreased T2 signal, height loss, bulge) (91%), disc T2-signal loss(83%), disc height loss (56%), disc bulge (64%), disc protrusion (32%), annularfissure (38%). Michael Reagan MD IMG MRI ORDERABLES documented in this encounter Visit Diagnoses Diagnosis Schwannoma Other benign neoplasm of connective and other soft tissue of unspecified site documented in this encounter Administered Medications Inactive Administered Medications - up to 3 most recent administrations Medication Order MAR Action Action Date Dose Rate Site diaZEPam (VALIUM) tablet 5-10 mg 5-10 mg, Oral, EVERY 30 MIN PRN, 2 doses, Starting on Wed11/17/16 at 1543, Until Wed11/17/16 at 1620, Anxiety, Angio/IR (Day of Procedure), Routine Given 11/17/2016 4:20 PM EDT 5 mg Given 11/17/2016 3:48 PM EDT 5 mg documented in this encounter Care Teams Commercial Sheet Metal Foreman Relationship Specialty Start Date End Date Peña Turner DO [address] [place] [address] PCP - General 05/13/10 07/21/21 documented as of this encounter
--- OUTSIDE RECORDS SUMMARY | 2024-06-12 14:17 | XMS_ITS | Encounter Summary ---
Author Organization [facility] [place] [address] Care Team Providers Care Franchise Sales Manager Name Role Phone Peña Turner DO Primary Care Provider Encounter Details Date Type Department Care Team (Latest Contact Info) Description 04/24/2016 8:05 AM EDT Laboratory Appointment Lab 3L [facility] [place] [id number] Essential hypertension Social History Tobacco Use Types Packs/Day Years [...] Procedure Name Priority Date/Time Associated Diagnosis Comments CREATININE Routine 04/24/2016 8:12 AM EDT Essential hypertension BASIC METABOLIC PANEL Routine 04/24/2016 8:12 AM EDT documented in this encounter Results * Basic Metabolic Panel (non-fasting) (04/24/2016 8:12 AM EDT) Glucose 107 65 - 199 mg/dL [facility] Comment:Diabetes: >=200 mg/d L plus symptoms Blood Urea Nitrogen 13 10 - 20 mg/dL [facility] Creatinine 1.00 0.80 - 1.50 mg/dL [facility] Comment: Please note that the pediatric reference intervals supplied above were not validated at [facility]. Results from pediatric patients should be interpreted in conjunction to the patient's age, height and muscle mass. Sodium 143 135 - 145 mmol/L [facility] Potassium 3.9 3.5 - 5.0 mmol/L [facility] Comment: Please note: ??Patients with WBC >100,000 may have falsely elevated Potassium levels. ??For accurate Potassium quantification in these patients send serum separator tube (gold top) for subsequent determinations. ??Contact the Clinical Chemistry Laboratory if there are any questions. Chloride 106 98 - 107 mmol/L [facility] Carbon Dioxide Not Perf 22 - 31 mmol/L [facility] Comment:Add-on request. Alphonso le too old to perform test C02 04/24/16 11:11 Anion Gap Not Calculated 5 - 15 mmol/L [facility] Calcium 9.0 8.5 - 10.5 mg/dL [facility] Est Glomerular Filtration Rate >60 >=60 [facility] Comment: This estimated GFR (eGFR) value was calculated using the MDRD equation which has been validated on patients between the ages of 18 and 70. The MDRD should not be used to assess kidney function in patients < 18 years of age or in patients with extremes of body mass, or in patients with acute kidney failure. This value should be multiplied by 1.2 for patients. For further information please copy and paste the following links into your internet browser. http://[employer]/DHnkdep http://[employer]/DHMCnkf Blood specimen (specimen) Venous Draw / Unknown 04/24/2016 8:12 AM EDT 04/24/2016 8:20 AM EDT Narrative Resulting Agency Comment Spec In Lab Juan Antonio Mendes MD CHEMISTRY ORDERABLES [facility] [place] [address] * Creatinine (04/24/2016 8:12 AM EDT) Creatinine Not Perf 0.80 - 1.50 [facility] Comment: Please note that the pediatric reference intervals supplied above were not validated at [facility]. Results from pediatric patients should be interpreted in conjunction to the patient's age, height and muscle mass. Duplicate order Please note that the pediatric reference intervals supplied above were not validated at [facility]. Results from pediatric patients should be interpreted in conjunction to the patient's age, height and muscle mass. Corrected from 1.00 mg/dL on 04/24/16 11:10 by Ara Rock Est Glomerular Filtration Rate Not Calculated >=60 [facility] Comment: This estimated GFR (eGFR) value was calculated using the MDRD equation which has been validated on patients between the ages of 18 and 70. The MDRD should not be used to assess kidney function in patients < 18 years of age or in patients with extremes of body mass, or in patients with acute kidney failure. This value should be multiplied by 1.2 for patients. For further information please copy and paste the following links into your internet browser. http://[employer]/MeraJob Indiankdep http://[employer]/Mera[employer] IndiaMCnkf This estimated GFR (eGFR) value was calculated using the MDRD equation which has been validated on patients between the ages of 18 and 70. The MDRD should not be used to assess kidney function in patients < 18 years of age or in patients with extremes of body mass, or in patients with acute kidney failure. This value should be multiplied by 1.2 for patients. For further information please copy and paste the following links into your internet browser. http://[employer] Indiankdep http://[employer] IndiaMCnkf Corrected from >60 on 04/24/16 11:10 by Ara Rock Blood specimen (specimen) 04/24/2016 8:12 AM EDT 04/24/2016 8:18 AM EDT Narrative Resulting Agency Comment Spec In Lab Juan Antonio Mendes MD CHEMISTRY ORDERABLES [facility] [place] [address] documented in this encounter Visit Diagnoses Diagnosis Essential hypertension Unspecified essential hypertension documented in this encounter Care Teams Franchise Sales Manager Relationship Specialty Start Date End Date Johnny, Peña, DO [address] [place] [address] PCP - General 05/13/10 07/21/21 documented as of this encounter
--- OUTSIDE RECORDS SUMMARY | 2024-06-12 14:17 | XMS_ITS | Encounter Summary ---
Author Organization [facility] [place] [address] Care Team Providers Care Nurse Paralegal Name Role Phone Peña Turner DO Primary Care Provider Reason for Visit * Diagnostic Test (Routine) - Closed Specialty Diagnoses / Procedures Referred By Contac t Referred To Contact Radiology Diagnoses Schwannoma Procedures MRI Lumbar Spine wwo Contrast Michael Reagan MD [address] [place] [address] [facility] [place] [address] Referral ID Status Reason Start Date Expiration Date V isits Requested Visits Authorized Closed Specialty Service Requested 10/27/2016 01/25/2017 1 1 Encounter Details Date Type Department Care Team (Latest Contact Info) Description 11/17/2016 3:36 PM EDT - 11/17/2016 11:59 PM EDT Hospital [place] [address] Michael Reagan MD Discharge Disposition: Home Social [...] PM EDT Schwannoma documented in this encounter Visit Diagnoses Not on filedocumented in this encounter Administered Medications Inactive Administered Medications - up to 3 most recent administrations Medication Order MAR Action Action Date Dose Rate Site gadobutrol (GADAVIST) 1 mMol/mL injection 10 mL 10 mL, Intravenous, ONCE PRN, 1 dose, Starting on Wed11/17/16 at 1659, Until Wed11/17/16 at 1735, lumbar, Routine Given 11/17/2016 5:35 PM EDT 10 mLs documented in this encounter Care Teams Nurse Paralegal Relationship Specialty Start Date End Date Peña Turner DO [address] [place] [address] [address] [place] [address] PCP - General 05/13/10 07/21/21 documented as of this encounter
--- OUTSIDE RECORDS SUMMARY | 2024-06-12 14:17 | XMS_ITS | Encounter Summary ---
[place] [address] Care Team Providers Care Medical Physiologist Name Role Phone Peña Turner DO Primary Care Provider Reason for Referral * Diagnostic Test (Routine) - Closed Specialty Diagnoses / Procedures Referred By Contac t Referred To Contact Radiology Diagnoses Schwannoma Procedures MRI Lumbar Spine With/WO Contrast Michael Reagan MD [address] [place] [address] [place] [address] Referral ID Status Reason Start Date Expiration Date V isits Requested Visits Authorized [id number] Closed Specialty Service Requested 11/01/2015 01/30/2016 1 1 Reason for Visit * Diagnostic Test (Routine) - Closed Specialty Diagnoses / Procedures Referred By Contac t Referred To Contact Radiology Diagnoses Schwannoma Procedures MRI Lumbar Spine With/WO Contrast Michael Reagan MD [address] [place] [address] [place] [address] Referral ID Status Reason Start Date Expiration Date V isits Requested Visits Authorized [id number] Closed Specialty Service Requested 11/01/2015 01/30/2016 1 1 Encounter Details Date Type Department Care Team (Latest Contact Info) Description 11/26/2015 1:26 PM EDT [place] [address] Michael Reagan MD Schwannoma Discharge Disposition: Home Social History Tobacco Use Types Packs/Day Years Used Date Smoking Tobacco: Never Assessed Sex and Gender Information Value Date Recorded Sex Assigned at Not on file Gender Identity Not on file Sexual Orientation Not on file documented as of this encounter Progress Notes * Priya Chakraborty RN - 11/21/2015 11:06 AM EDT MRI PRE-SEDATION ASSESSMENT NOTE NAME: Pancho Babb AGE: 50 y.o. : 1965 [address] [facility] [address] Male [phone] (home) Telephone Information: PEÑA TURNER, DO None No Known Allergies Date/Time of call: November 21, 2015/11:06 AM/ PREVIOUS MRI SCAN? yes HEIGHT: 5 10 WEIGHT: 240 SCHEDULED SCAN: MRI SPINE SUBJECTIVE: I am claustrophobic CAN YOU LAY FLAT? no AIRWAY ISSUES? no DO YOU HAVE ANY INVOLUNTARY MOVEMENTS? (explain) DO YOU HAVE ANY PAIN? no DO YOU TAKE PAIN MED ON A DAILY BASIS? ASSESSMENT: Appropriate for PO sedation PLAN: Valium per protocol Guidelines for MRI Pre-Procedures Laboratory Studies: GFR Date of lab draw 1. Creatinine studies (GFR level needed) within 90 days of scan ??? 70 yo or older if they are getting contrast ??? 50 years and older if they are diabetic and getting contrast ( XXX ) You must have a bottom hoop driver present when you check in. This patient has been informed that they require a bottom hoop driver to drive them home after this procedure. In the absence of a bottom hoop driver, IR will not be able to sedate for your scan. Pt verbalized understanding of these instructions during the pre-procedure education via phone. Yes [place] of bottom hoop driver: mother Candy Phone number PRIOR SCAN DATE/S SEDATION TYPE SUCCESSFUL 07/13/14 MRI L Spine wo Valium 5 mg x 2 po No. Per Tech: Patient very claustrophobic; needs IV sedate next time. Scan was very difficult for patient 11/26/15 MRI Spine Valium 5mg PO x2 pt did great PT STATED TO GRADUATE INTERNSHIP THAT THE SEDATION WAS EFFECTIVE FOR SCAN: Y N COMMENTS: Revised 07/05/15 documented in this encounter Plan of Treatment Not on file documented as of this encounter Procedures Procedure Name Priority Date/Time Associated Diagnosis Comments MRI LUMBAR SPINE WITH/WO CONTRAST Routine 11/26/2015 4:02 PM EDT Schwannoma documented in this encounter Results * MRI Lumbar Spine With/WO Contrast (11/26/2015 4:02 PM EDT) Anatomical Region Laterality Modality L-spine Magnetic Resonan ce Impressions 11/26/2015 4:08 PM EDT Interval complete resection of the intradural schwannoma at the L1 level. Narrative 11/26/2015 4:08 PM EDT EXAMINATION: MRI LUMBAR SPINE WITH/WO CONTRAST CLINICAL HISTORY: S/P T12-L2 laminectomies for schwannoma 08/28/14 ?? TECHNIQUE: MRI of the lumbar spine with and without contrast. 10 cc Gadavist administered. COMPARISON: Lumbar spine MRI 07/13/2014. FINDINGS: L1 laminectomy has been performed with interval removal of the enhancing intradural mass at the L1 level. There is no evidence for residual mass. The previously seen mass effect upon the nerve roots of the cauda equina has resolved. No new areas of abnormal enhancement. Mild degenerative changes are stable with neural foraminal narrowing most severe on the right at the L4-L5 level. No significant canal narrowing. Procedure Note Sal Mckeon MD - 11/26/2015 EXAMINATION: MRI LUMBAR SPINE WITH/WO CONTRAST CLINICAL HISTORY: S/P T12-L2 laminectomies for schwannoma 08/28/14 TECHNIQUE: MRI of the lumbar spine with and without contrast. 10 ccGadavist administered. COMPARISON: Lumbar spine MRI 07/13/2014. FINDINGS: L1 laminectomy has been performed with interval removal of the enhancing intradural mass at the L1 level. There is no evidence forresidual mass. The previously seen mass effect upon the nerve roots of the caudaequina has resolved. No new areas of abnormal enhancement. Mild degenerativechanges are stable with neural foraminal narrowing most severe on the right at theL4-L5 level. No significant canal narrowing. IMPRESSION Interval complete resection of the intradural schwannoma at the [place]. Michael Reagan MD IMG MRI ORDERABLES documented in this encounter Visit Diagnoses Diagnosis Schwannoma Other benign neoplasm of connective and other soft tissue of unspecified site documented in this encounter Administered Medications Inactive Administered Medications - up to 3 most recent administrations Medication Order MAR Action Action Date Dose Rate Site diaZEPam (VALIUM) tablet 5-10 mg 5-10 mg, Oral, 2 TIMES DAILY PRN, Starting on Wed11/26/15 at 0000, Until Wed11/27/15 at 0434, Anxiety, max 10 mg PO, Day of Surgery (Day of Procedure), STAT Given 11/26/2015 2:16 PM EDT 5 mg Given 11/26/2015 1:47 PM EDT 5 mg gadobutrol (GADAVIST) 1 mMol/mL injection 10.89 mL 10.89 mL (0.1 mL/kg/dose ? 108.9 kg Order-specific weight), Intravenous, ONCE PRN, 1 dose, Starting on Wed11/26/15 at 1546, Until Wed11/26/15 at 1554, Per Protocol, Routine Given 11/26/2015 3:54 PM EDT 10 mLs documented in this encounter Care Teams Medical Physiologist Relationship Specialty Start Date End Date Peña Turner DO [address] [place] [address] PCP - General 05/13/10 07/21/21 documented as of this encounter
--- OUTSIDE RECORDS SUMMARY | 2024-06-12 14:17 | XMS_ITS | Encounter Summary ---
Author Organization [facility] Address [facility] [place] [address] Care Team Providers Care Blow Mold Technician Name Role Phone Peña Turner DO Primary Care Provider [phone] Encounter Details Date Type Department Care Team (Late st Contact Info) Description 04/24/2016 10:30 AM EDT Office Visit Endocrinology at [facility] [place] [id number] Tyesha Quinonez MD Essential hypertension Social History Tobacco Use Types [...] Sign Reading Time Taken Comments Blood Pressure 144/82 04/24/2016 10:25 AM EDT Pulse 62 04/24/2016 10:25 AM EDT Temperature - - Respiratory Rate - - Oxygen Saturation - - Inhaled Oxygen Concentration - - Weight 112.5 kg (248 lb) 04/24/2016 10:25 AM EDT Height 177.8 cm (5' 10) 04/24/2016 10:25 AM EDT Body Mass Index 35.58 04/24/2016 10:25 AM EDT documented in this encounter Patient Instructions * Patient Instructions* Tyesha Quinonez MD - 04/24/2016 10:30 AM EDT Will recheck your potassium levels today Will follow up your CT adrenals and call you later today documented in this encounter Progress Notes * Tyesha Quinonez MD - 04/24/2016 10:30 AM EDT Images from the original note were not included. Last visit 02/2016 ENDOCRINOLOGY OUTPATIENT CONSULTATION Patient Name: Aroldo Gunter Date of Consultation: 04/24/2016 Consulting Physician: Dr. Turner Reason for Consultation: low potassium levels History of Presenting Illness: This is a 51 y.o. male patient who presents to clinic for low potassium levels and HTN Aroldo was diagnosed with HTN 04/22 -2 years ago. He was started on HCTZ and lisinopril initially with 10 meQ K ( > 6 months) daily, then norvasc was added. His BP has been ranging 140's systolic during his office visits with his PCP. Per documentation sent over by PCP, he was noted to have hypokalemia in October as below, prompting d/cof HCTZ but persistent mild hypokalemia. Pt denies arrythmias, palpitations or muscle cramps. Lab 11/18 12/04 12/31 Na 113 145 K 3.2 3.3 3.4 Cl 104 102 Bicarb 28 27 AG 10 BUN 21 Cr 1.15 0.96 EGFR >60 Pt also has a h/o DMT2 noted to have A1C 6.8 in 2015, controlled with diet and exercise. Does not check BG. No h/o high sodium levels. Denies constipation, tremors, palpitations, temperature intolerance. Denies dizziness, presyncope, headaches, vision changes, sweating spells. No recent weight changes, no fatigue or loss of energy. On potassium pill 10 me Q daily since 1 1/2 years. No muscle cramps. NO CAD history Diet rich in veggies. No laxative use At his last visit on 02/2016 we had checked Gordon and renin levels, gordon- 22, renin- 2.6. ARR was 8. Since lisinopril can lower aldosterone levels, we decided to hold lisinopril for 2 weeks and recheckARR. This was done at OSH 03/17/2016 Gordon- 38 Renin- 1.3 ARR- 29 He has stopped his potassium since the past month since he has experienced some bloating sensation which he attributed to potassium. He denies headaches, muscle weakness or new cramps, worsening HTN.Currently on norvasc 5 mg and lisinopril 20 mg ROS: (+) for as per HPI (-) for Constitutional: No tiredness, recent weight change, no heat or cold intolerance Endocrine: No [...] No depression, anxiety Past Medical History: DM A1C 6.8 HTN Intradural schwanomma s/p surgery Current Medications: ??? lisinopril (PRINIVIL;ZESTRIL) 20 mg Tablet ??? potassium chloride (K-DUR/KLOR-CON) 10 mEq Tablet Sustained Release ??? aspirin 81 mg Tablet, Delayed Release (E.C.) No current facility-administered medications for this visit. 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 Dad- DMT2 at age 80 yrs No FH adrenal, thyroid, parathyroid problems, no h/o early HTN Allergies: No Known Allergies Vitals Vitals: 04/24/16 1025 BP: 144/82 Pulse: 62 Physical Exam: General appearance: pleasant male pt, appears stated age, not in distress HEENT: anicteric, EOMI, MERCEDES, no lymphadenopathy, moist mucus membranes Fundoscopic: no retinopathy, no AV nicking or copper wiring CVS: +S1, S2. no murmurs, RRR Pulm: clear to auscultation BL Abd: soft, non-tender, non-distended, +bowel sounds, no rebound or guarding Extremities: 2+ pulses peripherally, no edema, no wounds over feet Neurological: Non-focal, 2+ DTRs, monofilament testing WNL Skin: no lesions, no violaceous striae, no acanthosis nigricans, no skin tags/freckling Thyroid gland: no goiter Pertinent Laboratory Findings: Lab 11/18 12/04 12/31 Na 113 145 K 3.2 3.3 3.4 Cl 104 102 Bicarb 28 27 AG 10 BUN 21 Cr 1.15 0.96 EGFR >60 Results for AROLDO GUNTER ( ) as of 04/24/2016 10:23 Ref. Range 02/25/2016 17:10 TSH Latest Ref Range: 0.27 - 4.20 mcIU/mL 1.83 Cortisol Latest Units: mcg/dL 13.1 ACTH Latest Ref Range: 6 - 50 pg/mL 21 Aldosterone Latest Ref Range: <=21 ng/dL 22 (H) Renin Activity Latest Units: ng/ml/hr 2.6 03/17/2016 Gordon- 38 Renin- 1.3 ARR- 29 CT adrenal protocol 04-24-2016 EXAMINATION: CT ABDOMEN WWO CONTRAST ?? CLINICAL HISTORY: Adrenal protocol CT with and without contrast ?? TECHNIQUE: Helical CT of the abdomen was performed prior to and following the intravenous administration of contrast. 110 cc of Omnipaque 350 was given. An adrenal protocol was performed. Precontrast followed by portal venous phase and 15 minute postcontrast delayed images were obtained. ?? COMPARISON: None. ?? FINDINGS: ?? Chest: No pulmonary nodule or consolidation. No pleural effusion. No enlarged lymph nodes in the imaged portion of the chest. ?? Liver: Diffuse hepatic steatosis and mild hepatomegaly. [...] the upper pole of the right kidney. ?? Bowel: No dilatation or wall thickening. Lymph nodes: An 11 mm lymph node seen posterior to the IVC at the level of the kidney. Peritoneum: No free air or free fluid. Osseous structures: Degenerative changes in the thoracolumbar spine. ?? IMPRESSION 1. Bilateral adrenal adenomas as described above. 2. Bilateral simple renal cysts. 3. Diffuse hepatic steatosis and mild hepatomegaly. 4. Slight prominence of the gallbladder wall, which is of indeterminate etiology but cannot exclude cholecystitis. Recommend clinical correlation. ?? I have personally reviewed the image(s) and the residents interpretation and agree with the findings, Aniket Medina at 04/24/2016 12:36 PM Assessment: This is a 51 y.o. year old male patient with h/o HTN and hypokalemia here for evaluation. DDx for HTN includde primary ( essential), pt may be at risk of metabolic syndrome given DM, HTN, BMI -35- or secondary HTN- endocrine causes for HTN and low K include primary hyper-aldosteronism andCushings syndrome. Pt had a period of hypokalemia in October- December, which has since resolved with discontinuation of HCTZ.His K levels in Feb and Apr were normal at 3.9. His K levels have not been rechecked after he had held lisinopril for 2 weeks. He is now back on lisinopril with this lab draw. He does not have resistant HTN- currently on less than maximal dosing of lisinopril 20 mg and Norvasc 2.5 mg with BG systolic in the 140's. We recalculated his ARR after holding lisinopril for 2 weeks: 03/17/2016 Gordon- 38 Renin- 1.3 ARR- 29 This is < 30 which is the endo society cutt off for primary hyperaldosteronism We got a CT adrenal protocol which showed 1) An 11 mm nodule [...] would need to complete a functionality work up- with 1 mg lowdose DST or late night salivary cortisol, plasma metanephrines. We will have to reassess the ARR and determine need for adrenal venous sampling per endocrine society protocol. Plan: - consider completing a functionality work up- with 1 mg low dose DST or late night salivary cortisol, plasma metanephrines. - consider rechecking ARR vs adrenal venous sampling if above work up comes back negative Thank you for the consult. This case is to be discussed with Dr. Mendes of Endocrinology. Tyesha Quinonez MD Endocrinology Fellow Pager- [phone] * Tyesha Quinonez MD - 04/24/2016 10:30 AM EDT Unclear if B/L adrenal nodules are truly hyperfunctioning or not since ARR is borderline and BP well controlled with lisinopril 20 mg and norvasc Would avoid adrenal venous sampling, continue current BP regimen. If pt has high BP or low K levels, to call and we can add mineralocorticoid receptor antagonist with spironolactone which will also help raise K levels Would do AVS only in future if has severe HTN difficult to control even with spirinolactone. Will f/u adrenal CT in 1 year Updated patient who verbalized understanding and is in agreement with the plan D/w Dr. Raza * Juan Antonio Mendes MD - 04/24/2016 10:30 AM EDT I reviewed this patient with Dr quinonez . I reviewed the blanchard portions of the history and physical exam, and reviewed pertinent lab data. . I was involved in all medical decision making and agree withthis plan. * Tyesha Quinonez MD - 04/24/2016 10:30 AM EDT As dicussed with Dr Raza, given mild HTN, normal K with lisinopril and risks of B/L adrenal venous sampling, ok to continue BP management with lisinopril and norvasc. To have 6 monthly BMP checks to r/o hypokalemia through PCP To return to clinic in 1 year with adrenal protocol CT to monitor size of adrenal nodules I called and updated the patient who verbalized understanding and agreed with the plan. * Tyesha Quinonez MD - 04/24/2016 10:30 AM EDT Will do late night salivary cortisol X 2 , plasma MN and hold lisinopril for 8 weeks then recheck ARR ONLY IF patient has worsening HTN. Since pt had non suppressed gordon -renin, the clinical suspicion for cushings is very low ! D/w Dr. Raza documented in this encounter Plan of Treatment Not on file documented as of this encounter Results * Creatinine (04/24/2016 8:12 AM EDT) Creatinine Not Perf 0.80 - 1.50 [facility] Comment: Please note that the pediatric reference intervals supplied above were not validated at [facility]. Results from pediatric patients should be interpreted in conjunction to the patient's age, height and muscle mass. Duplicate order Please note that the pediatric reference intervals supplied above were not validated at [facility]. Results from pediatric patients should be interpreted in conjunction to the patient's age, height and muscle mass. Corrected from 1.00 mg/dL on 04/24/16 11:10 by Rock, Ara A. Est Glomerular Filtration Rate Not Calculated >=60 [facility] Comment: This estimated GFR (eGFR) [...] the following links into your internet browser. [email or web address] This estimated GFR (eGFR) value was calculated [...] the following links into your internet browser. [email or web address] Corrected from >60 on 04/24/16 11:10 by Ara Rock Blood specimen (specimen) 04/24/2016 8:12 AM EDT 04/24/2016 8:18 AM EDT Narrative Resulting Agency Comment Spec In Lab Juan Antonio Mendes MD CHEMISTRY ORDERABLES Performing Organization Address City/State/[facility] Co de Phone Number [facility] [place] [address] documented in this encounter Visit Diagnoses Diagnosis Essential hypertension Unspecified essential hypertension documented in this encounter Care Teams Blow Mold Technician Relationship Specialty Start Date End Date Peña Turner DO [address] [place] [address] PCP - General 05/13/10 07/21/21 documented as of this encounter
--- OUTSIDE RECORDS SUMMARY | 2024-06-12 14:17 | XMS_ITS | Encounter Summary ---
Author Organization [facility] Address [facility] [place] [address] Care Team Providers Care Tinsel Machine Operator Name Role Phone Peña Turner DO Primary Care Provider [phone] Encounter Details Date Type Department Care Team (Latest Contact Info) Description 07/13/2014 8:49 AM EST - 07/13/2014 11:59 PM EST Hospital [place] [address] Will Moise MD EMERGENCY ROOM [address] [place] [address] Discharge Disposition: Home Social History Tobacco Use Types Packs/Day Years Used Date Smoking Tobacco: Never Assessed Sex and Gender Information Value Date Recorded Sex Assigned at Not on file Gender Identity Not on file Sexual Orientation Not on file documented as of this encounter Progress Notes * Sharon Malave, RN - 07/17/2014 2:16 PM EST VIR MRI PRE-SEDATION ASSESSMENT NOTE NAME: Pancho Babb AGE: 49 y.o. : 1965 Male There are no phone numbers on file. Telephone Information: PCP HEEL SEAT FITTER PEÑA TURNER DO None No Known Allergies Date/Time of call: July 17, 2014/2:16 PM/ PREVIOUS MRI SCAN? None found HEIGHT: 5'10 WEIGHT:235# SCHEDULED SCAN:MRI L Spine wo SUBJECTIVE:I am claustrophobic ASSESSMENT:Patient candidate for po sedation PLAN:Valium 5-10 mg per protocol PRIOR SCAN DATE/S SEDATION TYPE SUCCESSFUL 07/13/14 MRI L Spine wo Valium 5 mg x 2 po No. Per Tech: Patient very claustrophobic; needs IV sedate next time. Scan was very difficult for patient PT WILL ARRIVE 1 HR. BEFORE SCHEDULED SCAN AND HAVE A PRESIDENT & FOUNDER AVAILABLE. PT STATED TO CONSUMER CREDIT COUNSELOR THAT THE SEDATION WAS EFFECTIVE FOR SCAN: Y N__x___ COMMENTS: This patient has been informed that they require a street flusher driver to drive them home after this procedure. In the absence of a street flusher driver, IR will not be able to perform this procedure and will need to reschedule. Pt verbalized understanding of these instructions during the pre-procedure education via phone. documented in this encounter Plan of Treatment Not on file documented as of this encounter Procedures Procedure Name Priority Date/Time Associated Diagnosis Comments MRI LUMBAR SPINE WITH/WO CONTRAST Routine 07/13/2014 11:41 AM EST documented in this encounter Results * MRI lumbar spine with/WO contrast (07/13/2014 11:41 AM EST) Anatomical Region Laterality Modality L-spine Magnetic Resonan ce 07/13/2014 11:4 1 AM EST Impressions 07/13/2014 3:02 PM EST IMPRESSION: 1. Intradural extramedullary well-circumscribed mass at the level of the L1 vertebral body anteriorly compresses the cauda equina. It exhibits incomplete enhancement and contains central high T2 signal. Differential considerations include a spinal epidermoid cyst, a degenerated schwannoma. Myxopapillary ependymoma typically demonstrates more homogeneous enhancement. Comment: The following findings are so common in people without low back pain that while we report there presence, they must be interpreted with caution and in context of the clinical situation (Reference- Neshavik et al, Spine 2001). Findings: (Prevalence in patients without low back pain), disc degeneration (decreased T2 signal, height loss, bulge) (91%), disc T2-signal loss (83%), disc height loss (56%), disc bulge (64%), disc protrusion (32%), annular fissure (38%). This report was reviewed by Tato Owen at 07/13/2014 2:56 PM Film and interpretation reviewed by the attending Narrative 07/13/2014 3:02 PM EST EXAMINATION: MR Lumbar Spine W/WO Raúl CLINICAL HISTORY: LS SPINE W/O CONTRAST BACK PAIN TECHNIQUE: MRI of the lumbar spine before and after the administration of 11 cc Gadavist. COMPARISON: None FINDINGS: There is a 1.2 x 1.6 cm intradural extramedullary mass anteriorly compressing the cauda equina at the level of the L1 vertebral body. ??It is T1 hypointense centrally and T1 isointense peripherally. The central portion of the mass is T2 hyperintense. There is incomplete nodular peripheral enhancement. The conus terminates at L1. Cauda equina is not thickened, and does not enhance. No aggressive appearing marrow lesions. Visualized retroperitoneal structures are normal. There is partial ankylosis of at least the right SI joint. Prominent amount of epidural fat inferior to the thecal sac at L5 and below. Findings at the individual levels are as follows: T12-L1: Normal. L1-2: Anterior disc osteophyte complex, small right foraminal disc protrusion and bilateral facet hypertrophy results in mild right neural foraminal narrowing. L2-L3: Normal. L3-L4: No significant foraminal or central canal narrowing. L4-L5: Mild facet hypertrophy, with mild foraminal narrowing. No central canal narrowing. L5-S1: No significant foraminal or central canal narrowing. Procedure Note Tato Owen MD - 07/13/2014 EXAMINATION: MR Lumbar Spine W/WO Raúl CLINICAL HISTORY: LS SPINE W/O CONTRAST BACK PAIN TECHNIQUE: MRI of the lumbar spine before and after the administration of11 cc Gadavist. COMPARISON: None FINDINGS: There is a 1.2 x 1.6 cm intradural extramedullary massanteriorly compressing the cauda equina at the level of the L1 vertebral body. It isT1 hypointense centrally and T1 isointense peripherally. The central portionof the mass is T2 hyperintense. There is incomplete nodular peripheralenhancement. The conus terminates at L1. Cauda equina is not thickened, and does notenhance. No aggressive appearing marrow lesions. Visualized retroperitonealstructures are normal. There is partial ankylosis of at least the right SI joint.Prominent amount of epidural fat inferior to the thecal sac at L5 and below. Findings at the individual levels are as follows: T12-L1: Normal. L1-2: Anterior disc osteophyte complex, small right foraminal discprotrusion and bilateral facet hypertrophy results in mild right neural foraminal narrowing. L2-L3: Normal. L3-L4: No significant foraminal or central canal narrowing. L4-L5: Mild facet hypertrophy, with mild foraminal narrowing. No centralcanal narrowing. L5-S1: No significant foraminal or central canal narrowing. IMPRESSION IMPRESSION: 1. Intradural extramedullary well-circumscribed mass at the level of theL1 vertebral body anteriorly compresses the cauda equina. It exhibitsincomplete enhancement and contains central high T2 signal. Differentialconsiderations include a spinal epidermoid cyst, a degenerated schwannoma.Myxopapillary ependymoma typically demonstrates more homogeneous enhancement. Comment: The following findings are so common in people without low backpain that while we report there presence, they must be interpreted with cautionand in context of the clinical situation (Reference- Sandik et al, [id number]). Findings: (Prevalence in patients without low back pain), discdegeneration (decreased T2 signal, height loss, bulge) (91%), disc T2-signal loss(83%), disc height loss (56%), disc bulge (64%), disc protrusion (32%), annularfissure (38%). This report was reviewed by Tato Owen at 07/13/2014 2:56 PM Film and interpretation reviewed by the attending Will Moise MD IMG MRI ORDERABLES documented in this encounter Visit Diagnoses Not on filedocumented in this encounter Administered Medications Inactive Administered Medications - up to 3 most recent administrations Medication Order MAR Action Action Date Dose Rate Site diaZEPam (VALIUM) tablet 5 mg 5 mg, Oral, EVERY 30 MIN PRN, 2 doses, Starting on Wed07/13/14 at 0858, Until Wed07/13/14 at 0935, Anxiety, Angio/IR (Day of Procedure), Routine Given 07/13/2014 9:35 AM EST 5 mg Given 07/13/2014 9:00 AM EST 5 mg documented in this encounter Care Teams Tinsel Machine Operator Relationship Specialty Start Date End Date Peña Turner DO [address] [place] [address] PCP - General 05/13/10 07/21/21 documented as of this encounter
--- OUTSIDE RECORDS SUMMARY | 2024-06-12 14:17 | XMS_ITS | Encounter Summary ---
Author Organization [place] [address] Care Team Providers Care Cable Installer Repairer Name Role Phone Peña Turner DO Primary Care Provider Reason for Visit * Diagnostic Test (Routine) - Closed Specialty Diagnoses / Procedures Referred By Contac t Referred To Contact Radiology Diagnoses Schwannoma Procedures MRI Lumbar Spine With/WO Contrast Michael Reagan MD [address] [place] [address] [facility] [place] [address] Referral ID Status Reason Start Date Expiration Date V isits Requested Visits Authorized [id number] Closed Specialty Service Requested 11/01/2015 01/30/2016 1 1 Encounter Details Date Type Department Care Team (Latest Contact Info) Description 11/26/2015 1:27 PM EDT - 11/26/2015 11:59 PM EDT Hospital [place] [address] Michael Reagan MD Discharge Disposition: [...] on filedocumented in this encounter Care Teams Cable Installer Repairer Relationship Specialty Start Date End Date Peña Turner DO [address] [place] [address] PCP - General 05/13/10 07/21/21 documented as of this encounter
--- OUTSIDE RECORDS SUMMARY | 2024-06-12 14:17 | XMS_ITS | Encounter Summary ---
Author Organization [facility] Address [facility] [place] [address] Care Team Providers Care Dedicated Driver Name Role Phone Peña Turner DO Primary Care Provider [phone] Encounter Details Date Type Department Care Team (Latest Contact Info) Description 08/28/2014 9:16 PM EDT - 08/28/2014 11:59 PM EDT Hospital Encounter [place] [address] Philip Reagan MD Discharge Disposition: Home Social History [...] Associated Diagnosis Comments SURGICAL PATHOLOGY REPORT Routine 08/28/2014 12:00 PM EDT documented in this encounter Results * Surgical Pathology Report (08/28/2014 12:00 PM EDT) Final Diagnosis ? [facility] ? Provider: ?? PHILIP REAGAN ? Pt. Name: ?? LYRICAROLDO Jerry ? Acc #: ?[id number] ?Pt. ? Col Date: ?? 08/28/2014 ? /Sex: ?1965,(49 years),Male ? Rec Date: ?? 08/28/2014 ? LOC: ?[facility] ? SURGICAL PATHOLOGY ? ---Pathologic Diagnosis--- ? SCHWANNOMA with extensive degenerative hyalinization ? 08/30/14 ? WFH ? 08/30/14 Verified by: ? Jorge L TODD, Kevin Becerra ? Pathologist ? (Electronic Signature) ? The attending pathologist whose signature appears on this report has ? reviewed all diagnostic slides and has edited the gross and/or ? microscopic portion of the report in rendering the final pathologic ? diagnosis. ? ---Comment--- ? There is no evidence of atypia in this lesion. ? ---Microscopic Description--- ? The resected lesion is a nodular mass that is largely acellular and ? hyalinized in its center. ??This mass is attached to a peripheral nerve ? along its margin. ??It has a thin fibrous capsule beneath which are small ? foci of residual benign spindle cell neoplasm. ??This tumor forms occasional ? verocay bodies. ??No mitoses are found. ??In the mass the tumor has formed ? scattered cysts and there are some ectatic blood vessels as well. ? ---Gross Description--- ? A - Labeled/Fixative: L1 intradural tumor, formalin. ? Quantity/Size: Single, 1.4 x 1.2 x 0.8 cm. ? Tissue Description: Ovoid, well-circumscribe d, well encapsulated portion of ? centrally hemorrhagic pink-riojas tissue. ? Sections/Processi ng: The specimen is serially sectioned and entirely ? submitted. ??(T3) ??ejr ? ---Clinical Information--- ? Specimen Submitted: ? A - L1 intradural tumor ? Clinical History: ? Clinical History: ? T12-L2 laminectomies for tumor ? Clinical Diagnosis: ? L1 intradural tumor ? [facility] ? Provider: ?? PHILIP REAGAN ? Pt. Name: ?? AROLDO GUNTER ? Acc #: ?[id number] ?Pt. ? Col Date: ?? 08/28/2014 ? /Sex: ?1965,(49 years),Male ? Rec Date: ?? 08/28/2014 ? LOC: ?[facility] ? SURGICAL PATHOLOGY ? Referring Identifier: ??[id number] 08/30/2014 12:20 PM EDT [facility] SOFT TISSUE MASS / Unknown 08/28/2014 12:00 PM EDT 08/28/2014 12:00 PM EDT Philip Reagan MD PATHOLOGY/CYTOLOGY O RDERABLES Performing Organization Address City/State/[facility] Co de Phone Number [facility] [place] [address] documented in this encounter Visit Diagnoses Not on filedocumented in this encounter Care Teams Dedicated Driver Relationship Specialty Start Date End Date Peña Turner DO [address] [place] [address] [address] [place] [address] PCP - General 05/13/10 07/21/21 documented as of this encounter
--- OUTSIDE RECORDS SUMMARY | 2024-06-12 14:17 | XMS_ITS | Encounter Summary ---
Author Organization [facility] Address [facility] [address] Care Team Providers Care Shipping Inspector Name Role Phone Johnny Peña WALDRON Primary Care Provider [phone] Reason for Visit * Auth/Cert Specialty Diagnoses / Procedures Referred By Tavia t Referred To Contact Diagnoses 5 yr screening from 08/19/09 Procedures PRO COLONOSCOPY, DIAGNOSTIC COLONOSCOPY, DIAGNOSTIC Referral ID Status Reason Start Date Expiration Date Visits Re quested Visits Authorized [id number] 1 1 Encounter Details Date Type Department Care Team (Latest Contact Info) Description 01/14/2016 2:22 PM EDT - 01/14/2016 4:45 PM EDT Hospital [place] [address] Ruslan Taylor MD [facility] [place] [address] Discharge Disposition: Home Social History Tobacco Use [...] Sign Reading Time Taken Comments Blood Pressure 148/77 01/14/2016 4:20 PM EDT Pulse 73 01/14/2016 3:49 PM EDT Temperature 36.6 ??C (97.9 ??F) 01/14/2016 2:40 PM ED T Respiratory Rate 17 01/14/2016 4:20 PM EDT Oxygen Saturation 98% 01/14/2016 4:20 PM EDT Inhaled Oxygen Concentration - - Weight - - Height - - Body Mass Index - - documented in this encounter Discharge Instructions * Discharge Instructions* Sarthak Matt RN - 01/14/2016 4:25 PM EDT You may have received medication before and/or during your procedure, which affects judgement and reaction time. Do not drive, operate machinery, drink alcoholic beverages, or make important decisions for 24 hours. Be careful on stairs, as you may be unsteady on your feet. You may eat a regular diet as tolerated. Do not smoke if you are alone. IV site -- slight redness, or tenderness is normal, you can use a warm compress. If tenderness and redness increases or foul drainage occurs, please contact your M. D. * Attachments The following attachments cannot be sent through Care Everywhere. * COLONOSCOPY : POST-OP (ROMANIAN) documented in this encounter Medications at Time of Discharge Medication Sig Dispensed Refills Start Date End Date lisinopril (PRINIVIL;ZESTRIL) 20 mg Tablet Take 20 mg by mouth daily. potassium chloride (K-DUR/KLOR-CON) 10 mEq Tablet Sustained Release Take 10 mEq by mouth daily. 05/20/2017 aspirin 81 mg Tablet, Delayed Release (E.C.) Take 81 mg by mouth daily. 03/26/2021 documented as of this encounter H&P Notes * Ruslan Taylor MD - 01/14/2016 2:46 PM EDT Gastroenterology and Hepatology Pre-Procedure History and Physical Exam Procedure: Colonoscopy: Indication: screen There is no problem list on file for this patient. EXAM: HEENT: Airway examined, oropharynx clear Mallampati Score: II (soft palate, uvula, fauces visible) LUNGS: Clear to auscultation HEART: Regular rate and rhythm, normal S1, S2 ABDOMEN: Normal bowel sounds, soft, non tender, non distended, A/P Proceed with the planned endoscopic procedure. ASA 1 - Normal health patient Sedation Plan: deep Risks and benefits of the procedure explained to the patient. Consent signed. documented in this encounter Procedure Notes * Sarthak Matt RN - 01/14/2016 5:50 PM EDT 1645 Pt refused wheelchair for d/c, left with steady gait Sarthak Matt RN Endo 8727 documented in this encounter Plan of Treatment Not on file documented as of this encounter Procedures Procedure Name Priority Date/Time Associated Diagnosis Comments COLONOSCOPY, DIAGNOSTIC (WRVU 3.26) 01/14/2016 3:06 PM EDT 5 yr screening from 08/19/09 COLONOSCOPY Routine 01/14/2016 2:56 PM EDT documented in this encounter Results * COLONOSCOPY (01/14/2016 2:56 PM EDT) COLONOSCOPY [facility] Endoscopy Patient Name: Pancho Long ? Procedure Date: 01/14/2016 2:56 PM ? N: [id number] ? Date of : 1965 ? Age: 50 ? Order #: [id number] ? Procedure: ? Colonoscopy Indications: ? Follow-up for history of adenomatous ? polyps in the colon Providers: ? Ruslan Taylor MD, Syl Preston ? VITOR Russell, Anneliese Saucedo, ? Renewable Energy Consultant Referring MD: ?Peña Turner, DO Medicines: ? Midazolam 6 [...] Obrienderick DO GENERAL SURGICAL ORD ERABLES [employer]OVATION documented in this encounter Visit Diagnoses Not on filedocumented in this encounter Administered Medications Inactive Administered Medications - up to 3 most recent administrations Medication Order MAR Action Action Date Dose Rate Site lactated ringers infusion 100 mL/hr, Intravenous, CONTINUOUS, Starting on Wed01/14/16 at 1500, Until Wed01/14/16 at 1623, Endoscopy (Day of Procedure) New Bag 01/14/2016 2:52 PM EDT 100 mL/hr 100 mL/hr documented in this encounter Active and Recently Administered Medications Times are shown in EDT. Continuous Medication Order 01/12/2016 01/13/2016 01/14/2016 lactated ringers infusion (CANCELED) 100 mL/hr, Intravenous, CONTINUOUS, Starting on Wed01/14/16 at 1500, Until Wed01/14/16 at 1623, Endoscopy (Day of Procedure) 1452 (New Bag - Prov ider: Acradio Donaldson RN) PRN Medication Order 01/12/2016 01/13/2016 01/14/2016 fentaNYL 50 mcg/mL multi-dose injection (CANCELED) ONCE PRN, Starting on Wed01/14/16 at 1512, Until Wed01/14/16 at 1950, Intra-Operative (Intra-Procedure), Routine 1512 (Given - Provid er: Syl Russell RN)1515 (Given - Provider: Syl Russell RN)1518 (Given - Provider: Syl Russell RN)1521 (Given - Provider: Syl Russell RN)1524 (Given - Provider: Syl Russell RN) midazolam (PF) (VERSED) 1 mg/mL multi-dose injection (CANCELED) ONCE PRN, Starting on Wed01/14/16 at 1512, Until Wed01/14/16 at 1950, Intra-Operative (Intra-Procedure), Routine 1512 (Given - Provid er: Syl Russell RN)1515 (Given - Provider: Syl Russell RN)1518 (Given - Provider: Syl Russell, VITOR)1521 (Given - Provider: Syl Russell, VITOR)1524 (Given - Provider: Syl Russell, VITOR) documented in this encounter Care Teams Shipping Inspector Relationship Specialty Start Date End Date JohnnyPeñaDO [address] [place] [address] PCP - General 05/13/10 07/21/21 documented as of this encounter
--- OUTSIDE RECORDS SUMMARY | 2024-06-12 14:17 | XMS_ITS | Encounter Summary ---
Author Organization [facility] Address [facility] [place] [address] Care Team Providers Care Dental Amalgam Processor Name Role Phone Peña Turner DO Primary Care Provider Encounter Details Date Type Department Care Team (Late st Contact Info) Description 04/25/2017 Orders [place] [address] Celso Raza MD [facility] [place] [address] Adrenal cortical nodule Social History Tobacco Use Types Packs/Day [...] documented as of this encounter Results * Metanephrines, Fractionated Free, plasma (05/20/2017 12:39 PM EST) Normetanephrine, Free (OCTOBER) 0.51 <0.90 nmol/L [facility] Comment: Test Performed by: [facility] [address] [place] [id number] Metanephrine, Free (OCTOBER) <0.20 <0.50 nmol/L [facility] Comment: ADDITIONAL INFORMATION This test was developed and its performance characteristics determined by [facility] in a manner consistent with CLIA requirements. This test has not been cleared or approved by the U.S. Food and Drug Administration. Test Performed by: [facility] [address] [place] [address] Blood specimen (specimen) 05/20/2017 12:39 PM EST 05/20/2017 1:23 PM EST Narrative Resulting Agency Comment Spec In Lab Celso Raza MD LAB SEND OUT ORDDk [place] Performing Organization Address [facility] Co de Phone Number [facility] [place] [address] * ACTH (05/20/2017 12:39 PM EST) Pathologist [facility] ACTH 16 6 - 50 pg/mL [facility] Comment: Reference range applies only to specimens collected between 7am-10am. Test Performed by [facility], [address] [place] [address] Bennett Carranza M.D., Ph.D., Director of Laboratories , CLIA [id number] Blood specimen (specimen) 05/20/2017 12:39 PM EST 05/20/2017 2:17 PM EST Narrative Resulting Agency Comment Spec In Lab Celso Raza MD LAB SEND OUT ORDDk ERNST Performing Organization Address [facility] Co de Phone Number [facility] [place] [address] * (ABNORMAL) Hemoglobin A1c (05/20/2017 12:39 PM EST) Hemoglobin A1c 6.1(H) 4.3 - 5.6 % [facility] Comment: Reference Range: 4.3 - 5.6% 5.7 - 6.4% - Increased Risk of Developing Diabetes Mellitus >=6.5% - Consistent with diagnosis of Diabetes Mellitus In the absence of hyperglycemia (i.e. plasma glucose > 200 mg/dL) or classic symptoms of hyperglycemia a repeat measurement of HbA1c should be performed on a separate sample to confirm the diagnosis. Diagnosis and Classification of Diabetes Mellitus, Diabetes Care 2013; 36: Suppl. 1, O77-59 Estimated Average Glucose 128 mg/dL [facility] Comment: eAG equivalents for HbA1c [...] into estimated average glucose values. ??Diabetes Care 2008:31(8):9691-9481. Blood specimen (specimen) 05/20/2017 12:39 PM EST 05/20/2017 12:48 PM EST Narrative Resulting Agency Comment Spec In Lab Celso Raza MD CHEMISTRY ORDERAB LES [facility] [place] [address] documented in this encounter Visit Diagnoses Diagnosis Adrenal cortical nodule Other specified disorders of adrenal glands documented in this encounter Care Teams Dental Amalgam Processor Relationship Specialty Start Date End Date Peña Turner DO [address] [place] [address] [address] [place] [address] PCP - General 05/13/10 07/21/21 documented as of this encounter
--- OUTSIDE RECORDS SUMMARY | 2024-06-12 14:17 | XMS_ITS | Encounter Summary ---
[place] [address] Care Team Providers Care Rubber Tubing Backer Name Role Phone Peña Turner DO Primary Care Provider Encounter Details Date Type Department Care Team (Late st Contact Info) Description 04/03/2016 Orders Only [place] [address] Tyesha Ramírez MD Social History Tobacco Use Types Packs/Day [...] on filedocumented in this encounter Care Teams Rubber Tubing Backer Relationship Specialty Start Date End Date Peña Turner DO [address] [place] [address] PCP - General 05/13/10 07/21/21 documented as of this encounter
--- OUTSIDE RECORDS SUMMARY | 2024-06-12 14:17 | XMS_ITS | Encounter Summary ---
Author Organization [facility] [place] [address] Care Team Providers Care Personal Care Home Administrator Name Role Phone Peña Turner DO Primary Care Provider [phone] Encounter Details Date Type Department Care Team (Late st Contact Info) Description 03/03/2016 Telephone Endocrinology at [facility] [place] [phone] Tyesha Ramírez MD Social History Tobacco Use [...] encounter Miscellaneous Notes * Telephone Encounter - Tyesha Ramírez MD - 03/03/2016 11:48 AM EDT Results for AROLDO GUNTER ( ) as of 03/03/2016 11:38 Ref. Range 02/25/2016 17:10 Sodium Latest Ref Range: 135 - 145 mmol/L 145 Potassium Latest Ref Range: 3.5 - 5.0 mmol/L 3.9 Chloride Latest Ref Range: 98 - 107 mmol/L 104 CO2 Latest Ref Range: 22 - 31 mmol/L 26 Anion Gap Latest Ref Range: 5 - 15 mmol/L 15 BUN Latest Ref Range: 10 - 20 mg/dL 15 Creatinine Latest Ref Range: 0.80 - 1.50 mg/dL 1.15 Estimated GFR Latest Ref Range: >=60 >60 Glucose Lvl Latest Ref Range: 65 - 199 mg/dL 136 Calcium Latest Ref Range: 8.5 - 10.5 mg/dL 9.2 Hemoglobin A1C Latest Ref Range: 4.3 - 5.6 % 5.9 (H) Est Avg Gluc Latest Units: mg/dL 123 Results for AROLDO GUNTER ( ) as of 03/03/2016 11:38 Ref. Range 02/25/2016 17:10 TSH Latest Ref Range: 0.27 - 4.20 mcIU/mL 1.83 Cortisol Latest Units: mcg/dL 13.1 ACTH Latest Ref Range: 6 - 50 pg/mL 21 Aldosterone Latest Ref Range: <=21 ng/dL 22 (H) Renin Activity Latest Units: ng/ml/hr 2.6 1. Stop lisinopril 2. Continue potassium 3. Continue norvasc 2.5 mg daily 4. Recheck BP in 1 week, to call if high so we can add prazosin documented in this encounter Plan of Treatment Not on file documented as of this encounter Visit Diagnoses Diagnosis Essential hypertension, hypertension with unspecified goal documented in this encounter Care Teams Personal Care Home Administrator Relationship Specialty Start Date End Date Peña Turner DO [address] [place] [address] PCP - General 05/13/10 07/21/21 documented as of this encounter
--- OUTSIDE RECORDS SUMMARY | 2024-06-12 14:17 | XMS_ITS | Encounter Summary ---
Author Organization [facility] [place] [address] Care Team Providers Care Livestock Nutrition Territory Manager Name Role Phone Peña Turner DO Primary Care Provider Reason for Referral * Diagnostic Test (Routine) Specialty Diagnoses / Procedures Referred By Tavia herbert Referred To Contact Radiology Diagnoses Elevated blood pressure Procedures CT Abdomen wwo Contrast CT Abdomen & Pelvis wwo Contrast (Generic) Tyesha Lopez MD [facility] [place] [address] [facility] [place] [address] Referral ID Status Reason Start Date Expiration Date V isits Requested Visits Authorized [id number] Specialty Service Requested 04/17/2016 07/16/2016 1 1 Reason for Visit * Consultation (Routine) - Closed Specialty Diagnoses / Procedures Referred By Tavia herbert Referred To Contact Endocrinology Diagnoses Aldosteronism Peña Turner DO [address] [place] [address] [facility] [address] [place] [address] Referral ID Status Reason Start Date Expiration Date V isits Requested Visits Authorized [id number] Closed Consult, Test & Treat Connection Center 01/17/2016 01/16/2017 1 1 Encounter Details Date Type Department Care Team (Late st Contact Info) Description 02/25/2016 3:30 PM EDT Office Visit Endocrinology at [facility] [place] [place] [address] Celso Raza MD [facility] [place] [address] Tyesha Lopez MD Elevated blood pressure Social History Tobacco Use Types Packs/Day Years [...] Sign Reading Time Taken Comments Blood Pressure 141/84 02/25/2016 3:14 PM EDT Pulse 72 02/25/2016 3:14 PM EDT Temperature - - Respiratory Rate - - Oxygen Saturation - - Inhaled Oxygen Concentration - - Weight 110.7 kg (244 lb) 02/25/2016 3:14 PM EDT Height 177.8 cm (5' 10) 02/25/2016 3:14 PM EDT Body Mass Index 35.01 02/25/2016 3:14 PM EDT documented in this encounter Patient Instructions * Patient Instructions* Tyesha Lopez MD - 02/25/2016 3:30 PM EDT Will check your labs today and call you re: the result documented in this encounter Progress Notes * Tyesha Lopez MD - 02/25/2016 3:30 PM EDT ENDOCRINOLOGY OUTPATIENT CONSULTATION Patient Name: Pancho Babb Date of Consultation: 02/24/2016 Consulting Physician: Dr. Turner Reason for Consultation: low potassium levels History of Presenting Illness: This is a 50 y.o. male patient who presents to clinic for low potassium levels and HTN Pancho was diagnosed with HTN 11/2 -2 years ago. He was started on HCTZ and lisinopril initially with 10 meQ K daily, then norvasc was added. His BP [...] Diet rich in veggies. No laxative use ROS: (+) for as per HPI (-) [...] Psychiatric: No depression, anxiety Past Medical History: There is no problem list on file for this patient. DM A1C 6.8 HTN Intradural schwanomma s/p surgery Current Medications: ??? lisinopril (PRINIVIL;ZESTRIL) 20 mg Tablet ??? potassium chloride (K-DUR/KLOR-CON) 10 mEq Tablet Sustained Release ??? 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 Family History: Mom and dad- mid 80's have HTN. Dad- DMT2 at age 80 yrs No FH adrenal, thyroid, parathyroid problems, no h/o early HTN Allergies: No Known Allergies Vitals Vitals: 02/25/16 1514 BP: 141/84 Pulse: 72 Physical Exam: General appearance: pleasant male pt, [...] BUN 21 Cr 1.15 0.96 EGFR >60 Assessment: This is a 50 y.o. year old male patient with h/o HTN and hypokalemia here for evaluation. DDx for HTN include primary ( essential), pt may be at risk of metabolic syndrome given DM, HTN, BMI -35-> will confirm with A1C, lipids today or secondary HTN- endocrine causes for HTN and low K include primary hyper- aldosteronism and Cushings syndrome. It is interesting that despite using lisin opril which would drive K up, pt has had persistent low K. But pt has not had resistant HTN and overall BP well controlled with just 2 agents, will check aldosterone-renin ratio to rule out primary hyper-marla and check baseline cortisol and ACTH level today. Clinical suspicion for cushings is low, hence will hold off on late night cortisol or 1 mg low dose DST until baseline testing returns. Willalso check thyroid levels today. Less likely to have renal tubular acidosis with normal AG and bicarb. Very low clinical suspicion for pheochromocytoma and will not test Plan: - f/u ARR, BMP, A1C, TSH, lipids Thank you for the consult. This case has been discussed with Dr. Raza of Endocrinology. Tyesha Lopez MD Endocrinology Fellow Pager- [phone] * Celso Raza MD - 02/25/2016 3:30 PM EDT I have seen the patient and reviewed Dr. Lopez's above history and I agree with the details as written. The assessment and plan were formulated in discussion with me and I agree with them as documented. Interesting young gentleman of 50 yo with FH of HTN and T2DM at old age in both parents at age of 80s but he developed mild T2DM (A1c 6.8%) and HTN since he turned 49 yo with underlying obesity (BMI 35), likely having a component of metabolic syndrome as a background. He eats vegetables and not much fruits but K has been slightly low 3.2-3.4 range despite stopping HCTZ and still taking [id number] mg, therefore raising a possibility of 1ry hyperaldosteronism. His wt has been stable and no steroid use of any form and clinically he is general obese without Cushingnoid features and no symptomsto suggest pheo at all. He will start metforminER for midl T2DM to help reduce insulin resistance and wt down, which in turn may help with his HTN and metabolic syndrome overall. We will check lab today as planned and if it confirms 1ry hyperaldosteronism, will arrange for adrenal CT scan to help localize the adrenal adenoma prior to laparoscopic surgery if indicated. We alsodiscussed the possibility of doing adrenal venous sampling if the scan is equivocal or shows bilateral nodules, prior to considering surgery. Thanks for the consult. Celso Raza MD, PhD, FACP, FACE * Tyesha Lopez MD - 02/25/2016 3:30 PM EDT ? Per PCP- Marla 32 and renin 1.2 after after off meds. Need FU with Tyesha with CT same day. Tyesha will order We will order CT adrenal protocol and arrange f/u visit Pt called and reached , will send letter and cc our secreaties for f/u documented in this encounter Miscellaneous Notes * Addendum Note - Tyesha Lopez MD - 04/01/2016 4:09 PM EDTAddended by: TYESHA LOPEZ on: 04/01/2016 04:09 PM Modules accepted: Orders * Addendum Note - Rosi Esqueda - 02/25/2016 4:58 PM EDTAddended by: ROSI ESQUEDA on: 02/25/2016 04:58 PM Modules accepted: Orders documented in this encounter Plan of Treatment Not on file documented as of this encounter Procedures Procedure Name Priority Date/Time Associated Diagnosis Comments ALDOSTERONE Routine 02/25/2016 5:10 PM EDT Elevated blood pressure RENIN ACTIVITY Routine 02/25/2016 5:10 PM EDT Elevated blood pressure ACTH Routine 02/25/2016 5:10 PM EDT Elevated blood pressure TSH Routine 02/25/2016 5:10 PM EDT Elevated blood pressure LDL CHOLESTEROL, DIRECT Routine 02/25/2016 5:10 PM EDT Elevated blood pressure HDL/CHOL PROFILE Routine 02/25/2016 5:10 PM EDT Elevated blood pressure HEMOGLOBIN A1C STAT 02/25/2016 5:10 PM EDT Elevated blood pressure CORTISOL Routine 02/25/2016 5:10 PM EDT Elevated blood pressure BASIC METABOLIC PANEL Routine 02/25/2016 5:10 PM EDT Elevated blood pressure documented in this encounter Results * CT Abdomen wwo Contrast (04/24/2016 10:04 AM EDT) Anatomical Region Laterality Modality Abdomen Computed Tomogra phy Impressions 04/24/2016 12:36 PM EDT 1. ??Bilateral adrenal adenomas as described above. 2. ??Bilateral simple renal cysts. 3. ??Diffuse hepatic steatosis and mild hepatomegaly. 4. ??Slight prominence of the gallbladder wall, which is of indeterminate etiology but cannot exclude cholecystitis. Recommend clinical correlation. I have personally reviewed the image(s) and the residents interpretation and agree with the findings, Aniket Medina at 04/24/2016 12:36 PM Narrative 04/24/2016 12:36 PM EDT EXAMINATION: ??CT ABDOMEN WWO CONTRAST CLINICAL HISTORY: ??Adrenal protocol CT with and without contrast TECHNIQUE: Helical CT of the abdomen was performed prior to and following the intravenous administration of contrast. ??110 cc of Omnipaque 350 was given. An adrenal protocol was performed. Precontrast followed by portal venous phase and 15 minute postcontrast delayed images were obtained. COMPARISON: ??None. FINDINGS: Chest: No pulmonary nodule or consolidation. No pleural effusion. No enlarged lymph nodes in the imaged portion of the chest. Liver: ??Diffuse hepatic steatosis and mild hepatomegaly. No focal lesions. Bile ducts: ??Nondilated. Gallbladder: ??No calcified gallstones. Slight prominence of the gallbladder wall. Pancreas: ??Normal. Spleen: ??Normal. Adrenal: ??An 11 mm nodule seen in the anterior [...] is consistent with a benign adenoma. Kidneys: ??A slightly exophytic hypodense lesion in the superior pole of the left kidney, measuring 1.5 cm in greatest diameter, represents a simple cyst. A subcentimeter hypodense lesion in the lower pole of the right kidney represents a simple cyst. A calyceal diverticulum is present in the upper pole of the right kidney. Bowel: No dilatation or wall thickening. Lymph nodes: ??An 11 mm lymph node seen posterior to the IVC at the level of the kidney. Peritoneum: ??No free air or free fluid. Osseous structures: Degenerative changes in the thoracolumbar spine. Procedure Note Ainket Medina MD - 04/24/2016 EXAMINATION: CT ABDOMEN WWO CONTRAST CLINICAL HISTORY: Adrenal protocol CT with and without contrast TECHNIQUE: Helical CT of the abdomen was performed prior to and followingthe intravenous administration of contrast. 110 cc of Omnipaque 350 wasgiven. An adrenal protocol was performed. Precontrast followed by portal venousphase and 15 minute postcontrast delayed images were obtained. COMPARISON: None. FINDINGS: Chest: No pulmonary nodule or consolidation. No pleural effusion. Noenlarged lymph nodes in the imaged portion of the chest. Liver: Diffuse hepatic steatosis and mild hepatomegaly. No focallesions. Bile ducts: Nondilated. Gallbladder: No calcified gallstones. Slight prominence of thegallbladder wall. Pancreas: Normal. Spleen: Normal. Adrenal: An 11 mm nodule seen in the anterior limb of the right adrenalgland. On the precontrast scans, the density measures 13 Hounsfield units. Onthe portal venous phase, the Hounsfield unit density is 62 HU. On the 15minute postcontrast delayed images, the density is 25 HU. This is a 76%absolute washout, indicating this is a benign adenoma. A 16 mm nodule seen in theleft adrenal gland. On the precontrast scans, the density measures 17 HU. Onthe portal venous phase, the Hounsfield unit density is 63 HU. On the 15minute postcontrast delayed images, the density is 31 HU. This is a 70%absolute washout, indicating this is a benign adenoma. A 10 mm nodule seen in the posterior limb of the right adrenal gland. This measures -7 Hounsfieldunits on the precontrast scan, which is consistent with a benign adenoma. Kidneys: A slightly exophytic hypodense lesion in the superior pole ofthe left kidney, measuring 1.5 cm in greatest diameter, represents a simple cyst.A subcentimeter hypodense lesion in the lower pole of the right kidneyrepresents a simple cyst. A calyceal diverticulum is present in the upper pole of theright kidney. Bowel: No dilatation or wall thickening. Lymph nodes: An 11 mm lymph node seen posterior to the IVC at the levelof the kidney. Peritoneum: No free air or free fluid. Osseous structures: Degenerative changes in the thoracolumbar spine. IMPRESSION 1. Bilateral adrenal adenomas as described above. 2. Bilateral simple renal cysts. 3. Diffuse hepatic steatosis and mild hepatomegaly. 4. Slight prominence of the gallbladder wall, which is of indeterminate etiology but cannot exclude cholecystitis. Recommend clinicalcorrelation. I have personally reviewed the image(s) and the residents interpretationand agree with the findings, Aniket Medina at 04/24/2016 12:36 PM Celso Raza MD IMG CT ORDERABLES * TSH (02/25/2016 5:10 PM EDT) Thyroid Stimulating Hormone 1.83 0.27 - 4.20 mcIU/mL [facility] Blood specimen (specimen) 02/25/2016 5:10 PM EDT 02/25/2016 5:14 PM EDT Narrative Resulting Agency Comment Spec In Lab Celso Raza MD CHEMISTRY ORDERAB LES [facility] [place] [address] * (ABNORMAL) LDL Cholesterol, Direct (02/25/2016 5:10 PM EDT) LDL Cholesterol, Direct 127(H) <=99 mg/dL [facility] Comment: The National Cholesterol Education Program (NCEP) has set the following guidelines for LDL Cholesterol: Reference range: ?? Optimal: ?<100 mg/dL ?? Near Optimal/Above Optimal: ?? 100-129 mg/dL ?? Borderline high: ?130-159 mg/dL ?? High: ? 160-189 mg/dL ?? Very high: ?>dg=408 mg/dL SILVIA 2001: 285(19):4314-4663 Blood specimen (specimen) 02/25/2016 5:10 PM EDT 02/25/2016 5:14 PM EDT Narrative Resulting Agency Comment Spec In Lab Celso Raza MD CHEMISTRY ORDERAB LES [facility] [place] [address] * (ABNORMAL) HDL/Cholesterol Profile (02/25/2016 5:10 PM EDT) Cholesterol, Total 173 <=199 mg/dL [facility] Comment: Recommendations of the NCEP Adult Treatment Panel for the following risk cutoff thresholds for the [place] population: Desirable: <200 mg/dL Borderline High: 200-239 mg/dL High: > or = 240 mg/dL HDL Cholesterol 33(L) >=40 mg/dL [facility] Comment: Reference range: ??Low HDL: ?? < 40 mg/dL ??Normal: ?40-60 mg/dL ??Desirable: > 60 mg/dL SILVIA 2001; 285(19):5274-7491 Cholesterol/HDL Ratio 5.2 ratio [facility] Comment: A Cholesterol to HDL ratio below 4:1 is desirable. ??Studies suggest that increased CAD risk occurs at ratios above 5 for females and above 6 for men. ? [place] Heart Association ??(http://www.americanheart.org) ? Shasha Int Med, 1994; 121:641 ? AM J Med, 1998; 105(1A):48S Blood specimen (specimen) 02/25/2016 5:10 PM EDT 02/25/2016 5:14 PM EDT Narrative Resulting Agency Comment Spec In Lab Celso Raza MD CHEMISTRY ORDERAB LES [facility] [place] [address] * (ABNORMAL) Hemoglobin A1c (02/25/2016 5:10 PM EDT) Hemoglobin A1c 5.9(H) 4.3 - 5.6 % [facility] Comment: Reference Range: 4.3 [...] Mellitus, Diabetes Care 2013; 36: Suppl. 1, S67-21 Estimated Average Glucose 123 mg/dL [facility] Comment: eAG equivalents for HbA1c percentages: HbA1c(%) ?eAG(mg/dL) 6.0 ?126 6.5 ?140 7.0 ?154 7.5 ?169 8.0 ?183 8.5 ?197 9.0 ?212 9.5 ?226 10.0 ? 240 Limitations: The eAG calculation has not been validated on women, individuals below 18 years old and above 70 years old, and individuals with hemoglobinopathies. Additional resources are available on the ADA website: http://[email or web address] Alan ELIAS, Latisha J, Kaleigh R, et al. ??Translating the A1C assay into estimated average glucose values. ??Diabetes Care 2008:31(8):8542-9642. Blood specimen (specimen) 02/25/2016 5:10 PM EDT 02/25/2016 5:14 PM EDT Narrative Resulting Agency Comment Spec In Lab Celso Raza MD CHEMISTRY ORDERAB LES Performing Organization Address [facility]/ZIP Co de Phone Number [facility] [place] [address] * Cortisol (02/25/2016 5:10 PM EDT) Cortisol 13.1 mcg/dL [facility] Comment: Reference ranges: ??AM (7-10am): ??6.2-19.4 mcg/dL ??PM (4-8pm): ??2.3-12.3 mcg/dL Blood specimen (specimen) 02/25/2016 5:10 PM EDT 02/25/2016 5:14 PM EDT Narrative Resulting Agency Comment Spec In Lab Celso aRza MD CHEMISTRY ORDERAB LES Performing Organization Address City/[facility]/ZIP Co de Phone Number [facility] [place] [address] * ACTH (02/25/2016 5:10 PM EDT) ACTH 21 6 - 50 pg/mL [facility] Comment: Test Performed by Katie Gonzalez, [facility], [address] [place] [address] Bennett Carranza M.D., Ph.D., Director of Laboratories , [place] [id number] Blood specimen (specimen) 02/25/2016 5:10 PM EDT 02/26/2016 2:29 PM EDT Narrative Resulting Agency Comment Spec In Lab Celso Raza MD LAB SEND OUT TA ERNST Performing Organization Address [facility] Co de Phone Number [facility] [place] [address] * Renin Activity (02/25/2016 5:10 PM EDT) Renin Activity (OCTOBER) 2.6 ng/ml/hr [facility] Comment: REFERENCE VALUE (Peripheral vein specimen) Na-deplete, upright: ??Mean: 5.9 ??Range: 2.9-10.8 Na-replete, upright: ??Mean: 1.0 ??Range: < or =0.6-3.0 ADDITIONAL INFORMATION Testing performed by Liquid Chromatography-Tandem Mass Spectrometry (LC-MS/MS). This test was developed and its performance characteristics determined by [facility] in a manner consistent with CLIA requirements. This test has not been cleared or approved by the U.S. Food and Drug Administration. Test Performed by: [facility] - [address] [address] Wastewater Technician: Kevin Sultana II, M.D., Ph.D. Blood specimen (specimen) 02/25/2016 5:10 PM EDT 02/26/2016 8:47 AM EDT Narrative Resulting Agency Comment Spec In Lab Celso Raza MD LAB SEND OUT TA ERNST Performing Organization Address [facility] Co de Phone Number [facility] [place] [address] * (ABNORMAL) Aldosterone (02/25/2016 5:10 PM EDT) Pathologist [facility] Aldosterone (OCTOBER) 22(H) <=21 ng/dL [facility] Comment: ADDITIONAL INFORMATION Reference range for patients 11 years and older is based on upright A.M. collection from subjects without sodium restrictions. This test was developed and its performance characteristics determined by [facility] in a manner consistent with CLIA requirements. This test has not been cleared or approved by the U.S. Food and Drug Administration. Test Performed by: [place] [address] Wastewater Technician: Kevin Sultana II, M.D., Ph.D. Blood specimen (specimen) 02/25/2016 5:10 PM EDT 02/26/2016 8:47 AM EDT Narrative Resulting Agency Comment Spec In Lab Celso Raza MD LAB SEND OUT TA ERNST [facility] Organization Address City/State/ZIP Co de Phone Number [facility] [place] [address] * Basic Metabolic Panel (non-fasting) (02/25/2016 5:10 PM EDT) Pathologist [facility] Glucose 136 65 - 199 mg/dL [facility] Comment:Diabetes: >=200 mg/d L plus symptoms Blood Urea Nitrogen 15 10 - 20 mg/dL [facility] Creatinine 1.15 0.80 - 1.50 mg/dL [facility] Comment: Please note that the pediatric reference intervals supplied above were not validated at [facility]. Results from pediatric patients should be interpreted in conjunction to the patient's age, height and muscle mass. Sodium 145 135 - 145 mmol/L [facility] Potassium 3.9 3.5 - 5.0 mmol/L [facility] Comment: Please note: ??Patients with WBC >100,000 may have falsely elevated Potassium levels. ??For accurate Potassium quantification in these patients send serum separator tube (gold top) for subsequent determinations. ??Contact the Clinical Chemistry Laboratory if there are any questions. Chloride 104 98 - 107 mmol/L [facility] Carbon Dioxide 26 22 - 31 mmol/L [facility] Anion Gap 15 5 - 15 mmol/L [facility] Calcium 9.2 8.5 - 10.5 mg/dL [facility] Est Glomerular Filtration Rate >60 >=60 [facility] Comment: This estimated GFR (eGFR) [...] the following links into your internet browser. [email or web address] Blood specimen (specimen) 02/25/2016 5:10 PM EDT 02/25/2016 5:14 PM EDT Narrative Resulting Agency Comment Spec In Lab Celso Raza MD CHEMISTRY ORDERAB LES [facility] [place] [address] documented in this encounter Visit Diagnoses Diagnosis Elevated blood pressure Elevated blood pressure reading without diagnosis of hypertension Elevated blood pressure Elevated blood pressure reading without diagnosis of hypertension documented in this encounter Care Teams Livestock Nutrition Territory Manager Relationship Specialty Start Date End Date Peña Turner DO [address] [place] [address] PCP - General 05/13/10 07/21/21 documented as of this encounter
--- OUTSIDE RECORDS SUMMARY | 2024-06-12 14:17 | XMS_ITS | Encounter Summary ---
Author Organization [facility] Address [facility] [place] [address] Care Team Providers Care Hospice Case Manager Name Role Phone Johnny Peña WALDRON Primary Care Provider [phone] Reason for Visit * Reason Onset Date Comments Advice Only 05/05/2016 Encounter Details Date Type Department Care Team (Late st Contact Info) Description 05/05/2016 Telephone Endocrinology at [facility] [place] [phone] Tyesha Ramírez MD Advice Only Social History Tobacco Use Types Packs/Day Years [...] Telephone Encounter - Tyesha Ramírez MD - 05/05/2016 9:30 AM EST As dicussed with Dr Raza, given mild [...] verbalized understanding and agreed with the plan. documented in this encounter Plan of Treatment Not on file documented as of this encounter Visit Diagnoses Not on filedocumented in this encounter Care Teams Hospice Case Manager Relationship Specialty Start Date End Date Peña Turner DO [address] [place] [address] PCP - General 05/13/10 07/21/21 documented as of this encounter
--- OUTSIDE RECORDS SUMMARY | 2024-06-12 14:17 | XMS_ITS | Encounter Summary ---
Author Organization [facility] Address [facility] [place] [address] Care Team Providers Care Event Marketing Manager Name Role Phone Peña Turner DO Primary Care Provider Reason for Referral * Diagnostic Test (Routine) - Closed Specialty Diagnoses / Procedures Referred By Contac t Referred To Contact Radiology Diagnoses Adrenal adenoma, unspecified laterality Procedures CT Abdomen wwo Contrast Celso Raza MD [facility] [place] [address] [facility] [place] [address] Referral ID Status Reason Start Date Expiration Date V isits Requested Visits Authorized [id number] Closed Specialty Service Requested 05/20/2017 08/18/2017 1 1 Encounter Details Date Type Department Care Team (Late st Contact Info) Description 05/20/2017 11:00 AM EST Office [place] [phone] Celso Raza MD [facility] [place] [address] Adrenal adenoma, unspecified laterality; Adrenal cortical nodule Social History Tobacco Use [...] Sign Reading Time Taken Comments Blood Pressure 150/84 05/20/2017 11:01 AM EST Pulse 54 05/20/2017 11:01 AM EST Temperature - - Respiratory Rate - - Oxygen Saturation - - Inhaled Oxygen Concentration - - Weight 108.9 kg (240 lb) 05/20/2017 11: 01 AM EST pt stated weight Height 177.8 cm (5' 10) 05/20/2017 11: 01 AM EST Body Mass Index 34.44 05/20/2017 11:01 AM EST documented in this encounter Progress Notes * Celso Raza MD - 05/20/2017 11:00 AM EST Images from the original note were not included. Last visit 04/24/[address] Ramírez ENDOCRINOLOGY OUTPATIENT FOLLOW-UP Patient Name: Aroldo Gunter Date of Consultation: 05/20/2017 Consulting Physician: Dr. Turner Reason for Consultation: HTN with low potassium levels and bilateral adrenal nodules on CT scan 04/24/16 History of Presenting Illness: This is a 52 y.o. male patient who presents to clinic for low potassium levels and HTN and and bilateral adrenal nodules, used to see Dr. Ramírez in 2016 and is now transferred under my care directlyfrom today. It is still unclear if B/L adrenal nodules are truly hyperfunctioning or not since ARR is borderline at 29 (normal <30) and BP well controlled with lisinopril 20 mg and norvasc 5 mg qd. We would avoid adrenal venous sampling, continue current BP regimen. If pt has high BP or low K levels, to call and we can add mineralocorticoid receptor antagonist (spironolactone) which will also help raise K levels Would do AVS only in future if has severe HTN difficult to control even with spirinolactone. Will f/u adrenal CT after 1 year Given mild HTN, normal K with lisinopril and risks of B/L adrenal venous sampling, ok to continue BP management with lisinopril and norvasc. He is now here for 1 year follow-up and will need adrenal protocol CT to monitor size of adrenal nodules TODAY Regarding T2DM, he is on diet control with much better A1c (down from 6.8 to 5.9%) and wt down [id number] to 240 lbs over a year A1c. He just returned from a 2- week [place] 05[place]02[place]16/17so he has been eating a lot more but tried to pick the healthy choices the best he can. It's good news that his A1c is ok at 6.1% not too far off and he does [...] previous visit on 02/2016, we had checked Marla and renin levels, marla- 22, renin- 2.6. ARR was 8. Since lisinopril can lower aldosterone levels, we decided to hold lisinopril for 2 weeks and recheck ARR. This was done at OSH 03/17/2016 Marla- 38 Renin- 1.3 ARR- 29 (This is [...] Intradural schwanomma s/p surgery Current Medications: ??? amLODIPine (NORVASC) 5 mg Tablet ??? lisinopril (PRINIVIL;ZESTRIL) 20 mg Tablet ??? potassium chloride (K-DUR/KLOR-CON) 10 mEq Tablet Sustained Release ??? 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 Dad- DMT2 at age 80 yrs No FH adrenal, thyroid, parathyroid problems, no h/o early HTN Allergies: No Known Allergies Vitals Most Recent Vitals: 05/20/17 1101 BP: 150/84 Pulse: 54 Physical Exam: BP 150/84 Pulse 54 Ht 177.8 cm (5' 10) Wt (!) 108.9 kg (240 lb) Comment: pt stated weight BMI 34.44 kg/m2 Appearance: Patient is very pleasant white [...] sensation was intact Pertinent Laboratory Findings: Lab 11/19/1512/0401/01/16 Na 113 145 K 3.2 3.3 3.4 [...] Renin Activity Latest Units: ng/ml/hr 2.6 03/17/2016 Marla- 38 Renin- 1.3 ARR- 29 CT adrenal [...] with the findings, Aniket Medina at 04/24/2016 Recent Results (from the past 24 hour(s)) Hemoglobin A1c Result Value Ref Range Hemoglobin A1C 6.1 (H) 4.3 - 5.6 % Est Avg Gluc 128 mg/dL Cortisol Result Value Ref Range Cortisol 8.2 mcg/dL Basic Metabolic Panel (non-fasting) Result Value Ref Range Glucose Lvl 120 65 - 199 mg/dL BUN 10 10 - 20 mg/dL Creatinine 0.84 0.80 - 1.50 mg/dL Sodium 143 135 - 145 mmol/L Potassium 3.7 3.5 - 5.0 mmol/L Chloride 105 98 - 107 mmol/L CO2 24 22 - 31 mmol/L Anion Gap 14 5 - 15 mmol/L Calcium 9.2 8.5 - 10.5 mg/dL Estimated GFR >60 >=60 *pending for ACTH, plasma metanephrines, renin and aldosterone Assessment: This is a 52 y.o. year [...] after holding lisinopril for 2 weeks: 03/17/2016 Marla- 38 Renin- 1.3 ARR- 29 This is [...] Plan: - Recheck CT scan of abdomen today to follow the size of bilateral adrenal [...] - Also checked Labs today for BMP, ACTH, cortisol, plasma metanephrines, renin and aldosterone (ARRshould not be high while taking lisinopril) - consider completing a functionality work up- with midnight salivary cortisol if ACTH and cortisollevels are equivocal. We gave pt the salivary cortisol kit to pt today just in case we need to do the test soon or wait until next year. - We will let pt know all the results soon - RTC 6-12 mo or earlier if needed. Addendum: Discussed plan with pt after we obtained CT scan report (see the report below)- no need to repeat CT scan any more as the bilateral nodules are small and stable in size. - As his BP remains slightly high 144/82 last year and 150/84 today, he will start taking a low dose spironolactone 25-50 mg BID to block aldosterone action. - will recheck lab for potassium at local lab in 1-2 weeks. If K is getting higher, we will taper lisinopril down to half dose. 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 Celso Raza MD, PhD, FACE, FACP Addendum: CT scan report after the today (& already called pt for the results on 05/21/17) EXAMINATION: ??CT ABDOMEN WWO CONTRAST Date: 05/20/17 [...] ??Stable mild diffuse hepatic steatosis with hepatomegaly. documented in this encounter Plan of Treatment Not on file documented as of this encounter Procedures Procedure Name Priority Date/Time Associated Diagnosis Comments METANEPHRINES, FRACTIONATED FREE, PLASMA Routine 05/20/2017 12:39 PM EST Adrenal cortical nodule ALDOSTERONE Routine 05/20/2017 12:39 PM EST Adrenal adenoma, unspecified laterality RENIN ACTIVITY Routine 05/20/2017 12:39 PM EST Adrenal adenoma, unspecified laterality ACTH Routine 05/20/2017 12:39 PM EST Adrenal cortical nodule HEMOGLOBIN A1C Routine 05/20/2017 12:39 PM EST Adrenal cortical nodule CORTISOL Routine 05/20/2017 12:39 PM EST Adrenal adenoma, unspecified laterality BASIC METABOLIC PANEL Routine 05/20/2017 12:39 PM EST documented in this encounter Results * CT [...] with hepatomegaly. 8:35 AM Celso Raza MD IM CT ORDERABLES * Basic Metabolic Panel (non-fasting) (05/20/2017 12:39 PM EST) Glucose 120 65 - 199 mg/dL [facility] Comment:Diabetes: >=200 mg/d L plus symptoms Blood Urea Nitrogen 10 10 - 20 mg/dL [facility] Creatinine 0.84 0.80 - 1.50 mg/dL [facility] Sodium 143 135 - 145 mmol/L [facility] Potassium 3.7 3.5 - 5.0 mmol/L [facility] Comment: Please note: ??Patients with WBC >100,000 may have falsely elevated Potassium levels. ??For accurate Potassium quantification in these patients send serum separator tube (gold top) for subsequent determinations. ??Contact the Clinical Chemistry Laboratory if there are any questions. Chloride 105 98 - 107 mmol/L [facility] Carbon Dioxide 24 22 - 31 mmol/L [facility] Anion Gap 14 5 - 15 mmol/L [facility] Calcium 9.2 8.5 - 10.5 mg/dL [facility] Est Glomerular Filtration Rate >60 >=60 [facility] Comment: The reported eGFR should be multiplied by 1.2 for patients. The MDRD is not an appropriate measure of renal function for patients with body mass extremes or in patients with acute kidney failure. http://Reconnex.SociaLive/DHnkdep http://[employer]/DHMCnkf Blood specimen (specimen) Venous Draw / Unknown 05/20/2017 12:39 PM EST 05/20/2017 12:48 PM EST Narrative Resulting Agency Comment Spec In Lab Celso Raza MD CHEMISTRY ORDERAB LES [facility] [place] [place] [address] * Metanephrines, Fractionated Free, plasma (05/20/2017 12:39 PM EST) Normetanephrine, Free (OCTOBER) 0.51 <0.90 nmol/L [facility] Comment: Test Performed by: [facility] [address] [place] [id number] Metanephrine, Free (OCTOBER) <0.20 <0.50 nmol/L [facility] Comment: ADDITIONAL INFORMATION This test was developed and its performance characteristics determined by [facility] in a manner consistent with CLIA requirements. This test has not been cleared or approved by the U.S. Food and Drug Administration. Test Performed by: [facility] - [address] [address] Blood specimen (specimen) 05/20/2017 12:39 PM EST 05/20/2017 1:23 PM EST Narrative Resulting Agency Comment Spec In Lab Celso Raza MD LAB SEND OUT STONEYDk AMAY[place]NA Performing Organization Address City/[facility]/ZIP Co de Phone Number [facility] [place] [address] * ACTH (05/20/2017 12:39 PM EST) ACTH 16 6 - 50 pg/mL [facility] Comment: Reference range applies only to specimens collected between 7am-10am. Test Performed by Katie Gonzalez, [facility], [address] [place] [address] Bennett Carranza M.D., Ph.D., Director of Laboratories , CLIA [id number] Blood specimen (specimen) 05/20/2017 12:39 PM EST 05/20/2017 2:17 PM EST Narrative Resulting Agency Comment Spec In Lab Celso Raza MD LAB SEND OUT TA AMAYATAWANA Performing Organization Address City/[facility]/ZIP Co de Phone Number [facility] [place] [address] * (ABNORMAL) Hemoglobin A1c (05/20/2017 12:39 PM EST) Hemoglobin A1c 6.1(H) 4.3 - 5.6 % [facility] Comment: Reference Range: 4.3 [...] Mellitus, Diabetes Care 2013; 36: Suppl. 1, S67-74 Estimated Average Glucose 128 mg/dL [facility] Comment: eAG equivalents for [...] the ADA website. Alan ELIAS, Latisha J, aKleigh R, et al. ??Translating the A1C assay into estimated average glucose values. ??Diabetes Care 2008:31(8):9333-1481. Blood specimen (specimen) 05/20/2017 12:39 PM EST 05/20/2017 12:48 PM EST Narrative Resulting Agency Comment Spec In Lab Celso Raza MD CHEMISTRY ORDERAB LES [facility] [place] [address] * Cortisol (05/20/2017 12:39 PM EST) Cortisol 8.2 mcg/dL [facility] Comment: Reference ranges: ??AM (6-10am): ??4.8-19.5 mcg/dL ??PM (4-8pm) : ??2.5-11.9 mcg/dL Blood specimen (specimen) 05/20/2017 12:39 PM EST 05/20/2017 12:48 PM EST Narrative Resulting Agency Comment Spec In Lab Celso Raza MD CHEMISTRY ORDERAB LES [facility] [place] [address] * Renin Activity (05/20/2017 12:39 PM EST) Renin Activity (OCTOBER) 1.4 ng/ml/hr [facility] Comment: REFERENCE VALUE (Peripheral vein specimen) Na-deplete, upright: ??Mean: 5.9 ??Range: 2.9-10.8 Na-replete, upright: ??Mean: 1.0 ??Range: < or =0.6-3.0 ADDITIONAL INFORMATION Testing performed by Liquid Chromatography-Tandem Mass Spectrometry (LC-MS/MS). This test was developed and its performance characteristics determined by [facility] in a manner consistent with CLIA requirements. This test has not been cleared or approved by the U.S. Food and Drug Administration. Test Performed by: [facility] - [facility] [address] [place] [address] Blood specimen (specimen) 05/20/2017 12:39 PM EST 05/20/2017 1:23 PM EST Narrative Resulting Agency Comment Spec In Lab Celso Raza MD LAB SEND OUT TA ERNST Performing Organization Address City/[facility]/ZIP Co de Phone Number [facility] [place] [address] * (ABNORMAL) Aldosterone (05/20/2017 12:39 PM EST) Aldosterone (OCTOBER) 29(H) <=21 ng/dL [facility] Comment: ADDITIONAL INFORMATION Reference range for patients 11 years and older is based on upright A.M. collection from subjects without sodium restrictions. This test was developed and its performance characteristics determined by [facility] in a manner consistent with CLIA requirements. This test has not been cleared or approved by the U.S. Food and Drug Administration. Test Performed by: [facility] - [facility] [address] [place] [address] Blood specimen (specimen) 05/20/2017 12:39 PM EST 05/20/2017 1:23 PM EST Narrative Resulting Agency Comment Spec In Lab Celso Raza MD LAB SEND OUT TA ERNST Performing Organization Address City/[facility] Co de Phone Number [facility] [place] [address] documented in this encounter Visit Diagnoses Diagnosis Adrenal adenoma, unspecified laterality Adrenal cortical nodule Other specified disorders of adrenal glands Adrenal adenoma, unspecified laterality documented in this encounter Care Teams Event Marketing Manager Relationship Specialty Start Date End Date Peña Turner DO [address] [place] [address] PCP - General 05/13/10 07/21/21 documented as of this encounter
--- OUTSIDE RECORDS SUMMARY | 2024-06-12 14:17 | XMS_ITS | Encounter Summary ---
Author Organization [facility] Address [facility] [place] [address] Care Team Providers Care Perfect Binder Setter Name Role Phone Peña Turner DO Primary Care Provider Reason for Referral * Diagnostic Test (Routine) Specialty Diagnoses / Procedures Referred By Contac t Referred To Contact Radiology Diagnoses Elevated blood pressure Procedures CT Abdomen wwo Contrast CT Abdomen & Pelvis wwo Contrast (Generic) Tyesha Ramírez MD [facility] [place] [address] [facility] [place] [address] Referral ID Status Reason Start Date Expiration Date V isits Requested Visits Authorized [id number] Specialty Service Requested 04/17/2016 07/16/2016 1 1 Reason for Visit * Diagnostic Test (Routine) Specialty Diagnoses / Procedures Referred By Contac t Referred To Contact Radiology Diagnoses Elevated blood pressure Procedures CT Abdomen wwo Contrast CT Abdomen & Pelvis wwo Contrast (Generic) Tyesha Ramírez MD [facility] [place] [address] [facility] [place] [address] Referral ID Status Reason Start Date Expiration Date V isits Requested Visits Authorized [id number] Specialty Service Requested 04/17/2016 07/16/2016 1 1 Encounter Details Date Type Department Care Team (Latest Contact Info) Description 04/24/2016 9:00 AM EDT - 04/24/2016 11:59 PM EDT Hospital [place] [address] Celso Raza MD [facility] [place] [address] Elevated blood pressure Discharge Disposition: Home Social History Tobacco Use [...] Diagnosis Comments CT ABDOMEN WWO CONTRAST Routine 04/24/2016 10:04 AM EDT Elevated blood pressure documented in this [...] changes in the thoracolumbar spine. Procedure Note Aniket Medina MD - 04/24/2016 EXAMINATION: CT ABDOMEN [...] PM Celso Raza MD IMG CT ORDERABLES documented in this encounter Visit Diagnoses Diagnosis Elevated blood pressure Elevated blood pressure reading without diagnosis of hypertension documented in this encounter Administered Medications Inactive Administered Medications - up to 3 most recent administrations Medication Order MAR Action Action Date Dose Rate Site iohexol (OMNIPAQUE) 350 mg/mL solution 17,500 mg 17,500 mg (50 mL), Oral, ONCE PRN, 1 dose, Starting on Wed04/24/16 at 0924, Until Wed04/24/16 at 09, Per Protocol, Warning Vesicant/Irritant Medication , Routine Given 04/24/2016 9:25 AM EDT 17,500 mg iohexol (OMNIPAQUE) 350 mg/mL solution 38,500 mg 38,500 mg (110 mL), Intravenous, ONCE PRN, 1 dose, Starting on Wed04/24/16 at 0924, Until Wed04/24/16 at 0925, Per Protocol, Warning Vesicant/Irritant Medication , Routine Given 04/24/2016 9:25 AM EDT 38,500 mg documented in this encounter Care Teams Perfect Binder Setter Relationship Specialty Start Date End Date Peña Turner DO [address] [place] [address] PCP - General 05/13/10 07/21/21 documented as of this encounter
--- OUTSIDE RECORDS SUMMARY | 2024-06-12 14:17 | XMS_ITS | Encounter Summary ---
Author Organization [facility] Address [facility] [place] [address] Care Team Providers Care Ticket Marker Name Role Phone JohnnyPeña Primary Care Provider [phone] Reason for Visit * Auth/Cert Specialty Diagnoses / Procedures Referred By Tavia t Referred To Contact Diagnoses 5 yr screening from 08/19/09 Procedures PRO COLONOSCOPY, DIAGNOSTIC COLONOSCOPY, DIAGNOSTIC Referral ID Status Reason Start Date Expiration Date Visits Re quested Visits Authorized [id number] 1 1 Encounter Details Date Type Department Care Team (Late st Contact Info) Description 01/14/2016 3:45 PM EDT - 01/14/2016 4:30 PM EDT [place] [address] Ruslan Taylor MD [facility] [place] [address] COLONOSCOPY, DIAGNOSTIC (WRVU 3.26) Social History Tobacco Use Types Packs/Day Years [...] through Care Everywhere. * COLONOSCOPY : POST-OP (CHINESE) documented in this encounter Medications at Time [...] * COLONOSCOPY (01/14/2016 2:56 PM EDT) COLONOSCOPY [facility] Endoscopy Patient Name: Pancho Long ? Procedure Date: 01/14/2016 2:56 PM ? N: [id number] ? Date of : 1965 ? Age: 50 ? Order #: [id number] ? Procedure: ? Colonoscopy Indications: ? Follow-up for history of adenomatous ? polyps in the colon Providers: ? Ruslan Taylor MD, Syl Preston ? VITOR Russell, Anneliese Saucedo, ? Brick Chimney Supervisor Referring MD: ?Peña Turner, DO Medicines: ? [...] PM PROVATION 01/14/2016 2:56 PM EDT Peña Turner DO GENERAL SURGICAL ORD ERABLES PROVATION documented in this encounter Visit Diagnoses Not on filedocumented in this encounter Administered Medications Inactive Administered Medications - up to 3 most recent administrations Medication Order MAR Action Action Date Dose Rate Site fentaNYL 50 mcg/mL multi-dose injection ONCE PRN, Starting on e 01/14/16 at 1512, Until e 01/14/16 at 1950, Intra-Operative (Intra-Procedure), Routine Given 01/14/2016 3:24 PM EDT 50 mcg Given 01/14/2016 3:21 PM EDT 50 mcg Given 01/14/2016 3:18 PM EDT 50 mcg lactated ringers infusion 100 mL/hr, Intravenous, CONTINUOUS, Starting on 01/14/16 at 1500, Until 01/14/16 at 1623, Endoscopy (Day of Procedure) New Bag 01/14/2016 2:52 PM EDT 100 mL/hr 100 mL/hr midazolam (PF) (VERSED) 1 mg/mL multi-dose injection ONCE PRN, Starting on 01/14/16 at 1512, Until 01/14/16 at 1950, Intra-Operative (Intra-Procedure), Routine Given 01/14/2016 3:24 PM EDT 1 mg Given 01/14/2016 3:21 PM EDT 1 mg Given 01/14/2016 3:18 PM EDT 1 mg documented in this encounter Active and Recently Administered Medications Times are shown in EDT. Continuous Medication Order 01/12/2016 01/13/2016 01/14/2016 lactated ringers infusion (CANCELED) 100 mL/hr, Intravenous, CONTINUOUS, Starting on e 01/14/16 at 1500, Until 01/14/16 at 1623, Endoscopy (Day of Procedure) 1452 (New Bag - Prov ider: Arcadio Donaldson RN) PRN Medication Order 01/12/2016 01/13/2016 01/14/2016 fentaNYL 50 mcg/mL multi-dose injection (CANCELED) ONCE PRN, Starting on e 01/14/16 at 1512, Until Wed01/14/16 at 1950, Intra-Operative [...] Provider: Syl Russell RN)1518 (Given - Provider: ySl Russell RN)1521 (Given - Provider: Syl Russell RN)1524 (Given - Provider: Syl Russell RN) documented in this encounter Care Teams Ticket Marker Relationship Specialty Start Date End Date Peña Turner DO [address] [place] [address] PCP - General 05/13/10 07/21/21 documented as of this encounter
[2024-06-12 15:00] LABS: HCT 44.5 % (40.0-50.0); HGB 14.6 g/dL (13.5-17.5); MCH 30.5 pg (27.0-33.0); MCHC 32.8 % (32.0-36.0); MCV 93 fL (80-95); MPV 10.7 fL (8.0-11.0); Platelet Count 123 10^3/uL (130-400); RBC 4.79 10^6/uL (4.36-5.78); RDW 14.4 % (11.8-14.1); RDW-SD 48.7 fL; WBC 6.83 10^3/uL (4.4-10.8)
[2024-06-12 16:48] LABS: Anion Gap 8.9 mmol/L (3-11); BUN 17 mg/dL (7-18); CO2 26.1 mmol/L (21.0-32.0); CREATININE 1.3 mg/dL (0.70-1.30); Calculated LDL 80 mg/dL (<100); Chloride 111 mmol/L (98-107); Cholesterol 143 mg/dL (<200); Estimated GFR 62.89 (mL/min/1.73m2); Glucose 105 mg/dL (74-106); HDL Cholesterol 42 mg/dL (40-60); Potassium 4.3 mmol/L (3.5-5.1); Sodium 146 mmol/L (136-145); Triglyceride 107 mg/dL (<150); Vitamin D 25 Total 50.2 ng/mL (30-100)
== END 2024-06-12 14:11 | disposition home or self-care (01) ==
LOC: LBO 14:11
PROVIDERS: PCP Nurse Practitioner Family; Visit Provider Nurse Practitioner Family
DX: Z13.220 Encounter for screening for lipoid disorders (principal); I15.9 Secondary hypertension, unspecified; D69.6 Thrombocytopenia, unspecified; Z51.81 Encounter for therapeutic drug level monitoring
CPT/HCPCS: 36415; 80048; 80061; 82306; 85027

== ENCOUNTER 2024-08-24 01:51 | Outpatient (CLI) | payer MEDICAID, SELFPAY ==
--- NOTE | 2024-08-24 06:45 | DI.US_ITS ---
Exam(s) US THYROID EXAM: US THYROID CLINICAL HISTORY: Benign biopsy, assess for change,thyroid nodules,e04.1. TECHNIQUE: Ultrasound thyroid performed using standard protocol. COMPARISON: US US THYROID from 07/29/2022 US US THYROID from 08/25/2023 . This patient underwent ultrasound-guided FNA right thyroid nodule on 08/18/2022. FINDINGS: There is again noted a solitary nodule which is in the right lobe, previously biopsied. RIGHT THYROID LOBE: Measures 2.6 cm AP x 4.1 cm wide x 5.3 cm craniocaudal With respect to the previously biopsied dominant nodule in the right lobe, characteristics are as fol lows Size: This nodule measures 5.1 by 2.3 x 3.8 cm. Similar to previous Composition: Predominately solid-2 points Echogenicity: Hypoechoic compared to surrounding tissue-2 points Shape: Wider than taller-0 points Margin: Smooth- 0 points Echogenic Foci: None-0 points Total Points for this nodule: 4 ACR Ti-Rads Category: TR4 This TR 4 level nodule qualifies for FNA as it measures greater than 1.5 cm. ISTHMUS: Normal thickness. There are no nodules in the isthmus. LEFT THYROID LOBE: Measures 1.7 cm AP x 2.0 wide x 3.9 cm craniocaudal There are no nodules in the left lobe. LYMPH NODES: There is no significant adenopathy. IMPRESSION: 1. There is a single solid nodule which is in the right lobe and is classified as a TR 4 level nodule and qualifies for ultrasound-guided FNA as it measures greater than 1.5 cm. However, I note that it has previously been biopsied/FNA on 08/18/2022. This nodule exhibits minimal any significant change in size when compared to prior ultrasound of 07/29/2022 2. There are no new nodules in either lobe nor within the isthmus. 3. There is no significant lymphadenopathy. DATA REPOSITORY:
== END 2024-08-24 02:11 ==
LOC: DI 01:51
PROVIDERS: PCP Nurse Practitioner Family; Visit Provider Otolaryngology
DX: E04.1 Nontoxic single thyroid nodule (principal)
CPT/HCPCS: 76536

== ENCOUNTER 2024-11-01 03:32 | Outpatient (CLI) | payer MEDICAID, SELFPAY ==
[2024-11-01 12:53] LABS: Anion Gap 10.9 mmol/L (3-11); BUN 13 mg/dL (7-18); CO2 24.1 mmol/L (21.0-32.0); CREATININE 0.9 mg/dL (0.70-1.30); Calcium 9.4 mg/dL (8.5-10.1); Chloride 108 mmol/L (98-107); Estimated GFR 97.78 (mL/min/1.73m2); Glucose 110 mg/dL (74-106); Potassium 3.5 mmol/L (3.5-5.1); Sodium 143 mmol/L (136-145)
[2024-11-02 18:32] LABS: C-Peptide 1.7 ng/mL (1.1 - 4.4)
== END 2024-11-01 03:33 | disposition home or self-care (01) ==
LOC: LBO 03:32
PROVIDERS: PCP Nurse Practitioner Family; Visit Provider Nurse Practitioner Family
DX: E13.9 Other specified diabetes mellitus without complications (principal); K85.91 Acute pancreatitis with uninfected necrosis, unspecified
CPT/HCPCS: 36415; 80048; 84681